=== PATIENT | female | born 1940 | race Caucasian/White ===

== ENCOUNTER 2020-03-07 12:03 | Inpatient (IN) ==
--- NOTE | 2020-03-07 12:47 | Emergency Department Note ---
Impression & Plan Transient cerebral ischemia, Confusion, Double vision ED Provider Note NAME: BOSSMAN MOSCOSO AGE: 79 SEX: F : 1940 ARRIVES VIA: Ambulance INFORMANT: Patient ED PROVIDER(S): Manny Rendon DO CHIEF COMPLAINT: Double vision, trouble speaking HPI: Patient is a 39-year-old female presents the ER for worsening confusion, double vision and trouble talking. She recently moved up from [place]. She notes that she has a sleep disorder and woke up on the floor. She did hit her head. She denies any headache but admits to a change in vision. No chest pain, shortness of breath, nausea, vomiting or diarrhea. No new cough. She notes that she is having trouble getting her words out and she does have some double vision. She thinks is mainly on the left side but is present with both eyes and thinks it does improve when she closes her right eye. No facial pain. No other exacerbating or remitting factors. ROS: See above HPI for pertinent positives & negatives. A total of 10 systems reviewed and were otherwise negative. PAST MEDICAL HISTORY:See Below PAST SURGICAL HISTORY:See Below FAMILY HISTORY:See Below SOCIAL HISTORY:See Below HOME MEDICATIONS:See Below ALLERGIES:See Below VITALS:See Below PHYSICAL EXAMINATION: GENERAL: Sitting up in bed, alert, well appearing, well nourished, no distress, non-toxic EYE EXAM: normal conjunctiva. PERRL and EOM's grossly intact. OROPHARYNX: no exudate, no erythema, lips, buccal mucosa, and tongue normal and mucous membranes are moist NECK: supple, no nuchal rigidity, no adenopathy, non-tender LUNGS: Clear to auscultation. Normal chest wall mechanics HEART: no murmurs, S1 normal and S2 normal ABDOMEN: abdomen soft, non-tender, normo-active bowel sounds, no masses, no rebound or guarding. BACK: Back is symmetrical on inspection and there is no deformity, no midline tenderness, no CVA tenderness. SKIN: no rashes and no bruising UPPER EXTREMITIES: upper extremities are grossly normal. LOWER EXTREMITIES: No pitting edema. NEURO EXAM: Awake alert oriented to person place but not year, cranial nerves II-XII intact, trouble getting her words out, no weakness of arms, no weakness of legs. No drift. Unable to perform meflsm-or-bfdg as she is seeing double. gross sensation intact. MEDICAL DECISION MAKING: A 79-year-old female who presents the ER for double vision, trouble getting her words out and some confusion. IV was established blood work was obtained. Labs showed no significant leukocytosis or anemia. INR was unremarkable. BMP with a slightly elevated creatinine 1.4. LFTs bilirubin and troponin was negative. CTA of the head and neck shows 80% occlusion of the left vert. CT head was negative. Patient is confused but uncertain of her true baseline. Was concern for TIA. Patient was updated bedside. Discussed with hospitalist for further evaluation. Triage Nursing notes reviewed. Prior medical records reviewed Vital Signs: reviewed and remarkable for no significant abnormalities Differential diagnosis: Differential Diagnosis includes but is not limited to ischemic Stroke, hemorrhagic stroke, bells palsy, mass, neoplasm, migraine headache, seizure, subarachnoid hemorrhage, TIA, and transient global amnesia. ER treatment provided: See below Diagnostics interpreted by me: ECG: Sinus rhythm rate of 81 Left axis No PVCs First-degree AV block Normal QTC Cardiac Monitoring: An order was placed for continuous cardiac monitoring. The monitor shows a rate of 85 with sinus rhythm. Laboratory studies: As stated above and show below. Imaging studies: See below Consultation(s): none ED COURSE: Procedures: none Critical Care: None Past Med/Surg History Social History Smoking Status: Former smoker Hx Alcohol Use: No Hx Substance Use: No Preferred Language: Serbian Communication Ability: Effective Customer Associate Required: No Beliefs That Will Affect Care: None Current Living Situation: Alone Other Information That Helps Us Care for You: No Feels Safe at Home: Yes Safety Concerns: Feels Safe At This Time Assistive Devices: Glasses Allergies Allergies Allergy/AdvReac Type Severity Reaction Status Date / Time acetaminophen [From Midrin] AdvReac Severe angina and Unverified 03/07/20 14:35 hypertension dichloralphenazone AdvReac Severe angina and Unverified 03/07/20 14:35 [From Midrin] hypertension isometheptene [From Midrin] AdvReac Severe angina and Unverified 03/07/20 14:35 hypertension verapamil AdvReac Severe angina and Unverified 03/07/20 14:35 hypertension erythromycin base AdvReac Unknown Unknown Unverified 03/07/20 14:35 Home Meds Home Medications Medication Instructions Recorded Confirmed Biotin 900mcg 900 mcg PO QDD 03/07/20 03/07/20 Magnesium 500mg 500 mg PO QDD 03/07/20 03/07/20 Vitamin A 2400mcg 2,400 mcg PO QDD 03/07/20 03/07/20 acetaminophen [Tylenol Extra 1,000 mg PO HS 03/07/20 03/07/20 Strength] albuterol sulfate 2.5 mg INHALATION Q4H PRN 03/07/20 03/07/20 ascorbic acid (vitamin C) [Vitamin 500 mg PO QAM 03/07/20 03/07/20 C] azelastine 2 spray INTRANASAL BIDM 03/07/20 03/07/20 budesonide-formoterol [Symbicort] 2 puff INHALATION HS 03/07/20 03/07/20 bupropion HCl 150 mg PO QAM 03/07/20 03/07/20 calcium carbonate [Calcium 600] 600 mg PO QDD 03/07/20 03/07/20 cetirizine [Zyrtec] 10 mg PO HS 03/07/20 03/07/20 cholecalciferol (vitamin D3) 25 mcg PO QDD 03/07/20 03/07/20 [Vitamin D3] clonazepam 0.5 mg PO HS 03/07/20 03/07/20 docusate sodium [Stool Softener] 300 mg PO HS 03/07/20 03/07/20 fluocinonide 1 applic TOPICAL BID PRN 03/07/20 03/07/20 levomefolate calcium 7.5 mg PO QAM 03/07/20 03/07/20 [L-Methylfolate] levothyroxine 112 mcg PO QAM 03/07/20 03/07/20 niacin 500 mg PO QAM 03/07/20 03/07/20 omeprazole magnesium [Prilosec OTC] 20 mg PO QAM 03/07/20 03/07/20 sertraline 100 mg PO BIDM 03/07/20 03/07/20 tiotropium bromide [Spiriva with 1 cap INHALATION QAM 03/07/20 03/07/20 HandiHaler] tobramycin with nebulizer 300 mg INHALATION Q12H 03/07/20 03/07/20 verapamil 180 mg PO BIDM 03/07/20 03/07/20 Results & Data (ED) Vital Signs Vital Signs - 24 hr 03/07/20 12:10 03/07/20 12:23 03/07/20 12:30 Temperature 36.6 C Temperature Source Oral Pulse Rate - Lying Pulse Rate - Sitting Pulse Rate - Standing Pulse Rate 80 81 80 Pulse Rate [Apical] Pulse Rate from SpO2 Sensor 81 80 Pulse Rhythm Regular Pulse Rhythm [Apical] Pulse Strength Normal Pulse Strength [Apical] Respiratory Rate 23 21 20 Respiratory Effort / Characteristics Non-Labored Spontaneous Respiratory Depth Normal Respiratory Pattern Regular Blood Pressure - Lying Blood Pressure - Sitting Blood Pressure- Standing Blood Pressure 181/97 H 181/97 H 158/86 H Blood Pressure [Right Arm] Blood Pressure Mean 125 121 111 Blood Pressure Mean [Right Arm] Blood Pressure Position Lying Blood Pressure Position [Right Arm] Pulse Oximetry 96 97 96 Oxygen Delivery Method Room Air Sepsis Recent Fever Within 48 Hours No Sepsis New/Unexplained Change in Mental Status No Sepsis Action Taken by Nursing No Action Required 03/07/20 13:00 03/07/20 13:30 03/07/20 14:00 Temperature Temperature Source Pulse Rate - Lying Pulse Rate - Sitting Pulse Rate - Standing Pulse Rate 80 79 82 Pulse Rate [Apical] 82 Pulse Rate from SpO2 Sensor 81 79 82 Pulse Rhythm Pulse Rhythm [Apical] Regular Pulse Strength Pulse Strength [Apical] Normal Respiratory Rate 30 H 17 23 Respiratory Effort / Characteristics Non-Labored Spontaneous Respiratory Depth Normal Respiratory Pattern Blood Pressure - Lying Blood Pressure - Sitting Blood Pressure- Standing Blood Pressure 157/86 H 176/96 H 171/88 H Blood Pressure [Right Arm] 171/88 H Blood Pressure Mean 96 128 129 Blood Pressure Mean [Right Arm] 115 Blood Pressure Position Blood Pressure Position [Right Arm] Semi-fowlers Pulse Oximetry 96 94 97 Oxygen Delivery Method Room Air Sepsis Recent Fever Within 48 Hours Sepsis New/Unexplained Change in Mental Status Sepsis Action Taken by Nursing 03/07/20 14:15 03/07/20 14:22 03/07/20 14:30 Temperature Temperature Source Pulse Rate - Lying 91 H Pulse Rate - Sitting 88 Pulse Rate - Standing 88 Pulse Rate 86 Pulse Rate [Apical] 86 Pulse Rate from SpO2 Sensor 86 Pulse Rhythm Pulse Rhythm [Apical] Regular Pulse Strength Pulse Strength [Apical] Respiratory Rate 18 19 Respiratory Effort / Characteristics Respiratory Depth Normal Respiratory Pattern Blood Pressure - Lying 148/84 H Blood Pressure - Sitting 137/79 Blood Pressure- Standing 107/89 Blood Pressure 156/87 H Blood Pressure [Right Arm] 107/89 Blood Pressure Mean 121 Blood Pressure Mean [Right Arm] 95 Blood Pressure Position Blood Pressure Position [Right Arm] Standing Pulse Oximetry 100 100 Oxygen Delivery Method Sepsis Recent Fever Within 48 Hours Sepsis New/Unexplained Change in Mental Status Sepsis Action Taken by Nursing 03/07/20 15:00 03/07/20 15:30 03/07/20 15:33 Temperature Temperature Source Pulse Rate - Lying Pulse Rate - Sitting Pulse Rate - Standing Pulse Rate 82 90 91 H Pulse Rate [Apical] Pulse Rate from SpO2 Sensor 82 89 91 H Pulse Rhythm Pulse Rhythm [Apical] Pulse Strength Pulse Strength [Apical] Respiratory Rate 19 24 21 Respiratory Effort / Characteristics Respiratory Depth Respiratory Pattern Blood Pressure - Lying Blood Pressure - Sitting Blood Pressure- Standing Blood Pressure 172/96 H 166/151 H 174/113 H Blood Pressure [Right Arm] Blood Pressure Mean 134 156 127 Blood Pressure Mean [Right Arm] Blood Pressure Position Blood Pressure Position [Right Arm] Pulse Oximetry 100 99 100 Oxygen Delivery Method Sepsis Recent Fever Within 48 Hours Sepsis New/Unexplained Change in Mental Status Sepsis Action Taken by Nursing 03/07/20 15:57 03/07/20 16:00 03/07/20 16:18 Temperature Temperature Source Pulse Rate - Lying Pulse Rate - Sitting Pulse Rate - Standing Pulse Rate 88 88 86 Pulse Rate [Apical] Pulse Rate from SpO2 Sensor 88 88 87 Pulse Rhythm Pulse Rhythm [Apical] Pulse Strength Pulse Strength [Apical] Respiratory Rate 20 29 H 21 Respiratory Effort / Characteristics Respiratory Depth Respiratory Pattern Blood Pressure - Lying Blood Pressure - Sitting Blood Pressure- Standing Blood Pressure 146/104 H 162/100 H 162/100 H Blood Pressure [Right Arm] Blood Pressure Mean 130 122 122 Blood Pressure Mean [Right Arm] Blood Pressure Position Blood Pressure Position [Right Arm] Pulse Oximetry 100 100 100 Oxygen Delivery Method Sepsis Recent Fever Within 48 Hours Sepsis New/Unexplained Change in Mental Status Sepsis Action Taken by Nursing 03/07/20 16:30 Temperature Temperature Source Pulse Rate - Lying Pulse Rate - Sitting Pulse Rate - Standing Pulse Rate 87 Pulse Rate [Apical] Pulse Rate from SpO2 Sensor 86 Pulse Rhythm Pulse Rhythm [Apical] Pulse Strength Pulse Strength [Apical] Respiratory Rate 27 H Respiratory Effort / Characteristics Respiratory Depth Respiratory Pattern Blood Pressure - Lying Blood Pressure - Sitting Blood Pressure- Standing Blood Pressure 175/103 H Blood Pressure [Right Arm] Blood Pressure Mean 119 Blood Pressure Mean [Right Arm] Blood Pressure Position Blood Pressure Position [Right Arm] Pulse Oximetry 100 Oxygen Delivery Method Sepsis Recent Fever Within 48 Hours Sepsis New/Unexplained Change in Mental Status Sepsis Action Taken by Nursing Laboratory Data Result diagrams: 03/07/20 12:48 03/07/20 12:48 Lab Results 03/07/20 03/07/20 03/07/20 Range/Units 12:46 12:48 12:48 WBC 11.77 H (4.8-10.8) K/uL RBC 4.81 (4.2-5.4) M/uL Hgb 13.1 (12.0-16.0) g/dL Hct 43.0 (37-47) % MCV 89.4 (80-100) fL MCH 27.2 (25-34) pg MCHC 30.5 L (32-36) g/dL RDW Std Deviation 46.0 (36.4-46.3) fL RDW Coeff of Wilver 14.1 (11.5-14.5) % Plt Count 325 (130-400) K/uL MPV 9.6 (7.4-10.4) fL Immature Gran % (Auto) 0.3 % Neut % (Auto) 82.8 % Lymph % (Auto) 8.0 % [place] % (Auto) 7.5 % Eos % (Auto) 1.3 % Baso % (Auto) 0.1 % Neut # (Auto) 9.76 H (1.4-6.5) K/uL Lymph # (Auto) 0.94 L (1.2-3.4) K/uL [place] # (Auto) 0.88 H (0.11-0.59) K/uL Eos # (Auto) 0.15 (0-0.5) K/uL Baso # (Auto) 0.01 (0-0.2) K/uL Immature Gran # (Auto) 0.03 H (0.00-0.02) K/uL PT 11.1 (9.0-12.0) Seconds INR 1.1 (0.9-1.1) APTT 25.1 (21.0-31.0) Seconds PTT Ratio 0.9 Sodium (136-145) mmol/L Potassium (3.5-5.1) mmol/L Chloride (98-107) mmol/L Carbon Dioxide (21-32) mmol/L Anion Gap (3-11) BUN (7-18) mg/dl Creatinine (0.6-1.2) mg/dl Est Cr Clr Drug Dosing ml/min Est GFR ( Amer) Est GFR (Non-Af Amer) BUN/Creatinine Ratio (10-20) Glucose (70-99) mg/dl POC Glucose 93 (70-99) mg/dl Calcium (8.5-10.1) mg/dl Magnesium (1.8-2.4) mg/dl Total Bilirubin (0.2-1) mg/dl AST (15-37) U/L ALT (12-78) U/L Alkaline Phosphatase (45-117) U/L Troponin I (0-0.045) ng/ml Total Protein (6.4-8.2) gm/dl Albumin (3.4-5.0) gm/dl Globulin (2.5-4.0) gm/dl Albumin/Globulin Ratio (0.9-2) 03/07/20 Range/Units 12:48 WBC (4.8-10.8) K/uL RBC (4.2-5.4) M/uL Hgb (12.0-16.0) g/dL Hct (37-47) % MCV (80-100) fL MCH (25-34) pg MCHC (32-36) g/dL RDW Std Deviation (36.4-46.3) fL RDW Coeff of Wilver (11.5-14.5) % Plt Count (130-400) K/uL MPV (7.4-10.4) fL Immature Gran % (Auto) % Neut % (Auto) % Lymph % (Auto) % [place] % (Auto) % Eos % (Auto) % Baso % (Auto) % Neut # (Auto) (1.4-6.5) K/uL Lymph # (Auto) (1.2-3.4) K/uL [place] # (Auto) (0.11-0.59) K/uL Eos # (Auto) (0-0.5) K/uL Baso # (Auto) (0-0.2) K/uL Immature Gran # (Auto) (0.00-0.02) K/uL PT (9.0-12.0) Seconds INR (0.9-1.1) APTT (21.0-31.0) Seconds PTT Ratio Sodium 137 (136-145) mmol/L Potassium 4.2 (3.5-5.1) mmol/L Chloride 105 (98-107) mmol/L Carbon Dioxide 28 (21-32) mmol/L Anion Gap 4.0 (3-11) BUN 28 H (7-18) mg/dl Creatinine 1.46 H (0.6-1.2) mg/dl Est Cr Clr Drug Dosing 25.7 ml/min Est GFR ( Amer) 39.8 Est GFR (Non-Af Amer) 34.4 BUN/Creatinine Ratio 18.9 (10-20) Glucose 89 (70-99) mg/dl POC Glucose (70-99) mg/dl Calcium 9.4 (8.5-10.1) mg/dl Magnesium 2.4 (1.8-2.4) mg/dl Total Bilirubin 0.4 (0.2-1) mg/dl AST 22 (15-37) U/L ALT 27 (12-78) U/L Alkaline Phosphatase 107 (45-117) U/L Troponin I < 0.015 (0-0.045) ng/ml Total Protein 8.8 H (6.4-8.2) gm/dl Albumin 4.1 (3.4-5.0) gm/dl Globulin 4.7 H (2.5-4.0) gm/dl Albumin/Globulin Ratio 0.9 (0.9-2) Administered Medications Discontinued Medications Ioversol (Optiray 320 125ml) 120 ml IV ONCE ONE Stop: 03/07/20 13:46 Last Admin: 03/07/20 13:46 Dose: 120 ml Documented by: [id number] Discharge Plan Visit Data Chief Complaint: Neuro Symptoms/Deficit ED Provider: Manny Rendon Discharge Problem: Transient cerebral ischemia, Confusion, Double vision Patient Disposition: Admitted As Inpatient Discharge Instructions Interventions: ED Discharge Assessment Last Done: 03/07/20 17:36 Discharge Problem: Transient cerebral ischemia Qualifiers: Transient cerebral ischemia type: unspecified Qualified Code(s): G45.9 - Transient cerebral ischemic attack, unspecified
[2020-03-07 13:05] LABS: Basophils # (auto) 0.01 K/uL (0-0.2); Basophils % (auto) 0.1 %; Eosinophils # (auto) 0.15 K/uL (0-0.5); Eosinophils % (auto) 1.3 %; Hemoglobin 13.1 g/dL (12.0-16.0); Immature Granulocytes # (auto) 0.03 K/uL (0.00-0.02); Immature Granulocytes % (auto) 0.3 %; Lymphocytes # (auto) 0.94 K/uL (1.2-3.4); Mean Corpuscular Hemoglobin 27.2 pg (25-34); Mean Corpuscular Hgb Conc 30.5 g/dL (32-36); Mean Corpuscular Volume 89.4 fL (80-100); Mean Platelet Volume 9.6 fL (7.4-10.4); Monocytes # (auto) 0.88 K/uL (0.11-0.59); Monocytes % (auto) 7.5 %; Neutrophils # (auto) 9.76 K/uL (1.4-6.5); Neutrophils % (auto) 82.8 %; Platelet Count 325 K/uL (130-400); RDW Coefficient of Variation 14.1 % (11.5-14.5); Red Blood Count 4.81 M/uL (4.2-5.4); White Blood Count 11.77 K/uL (4.8-10.8)
[2020-03-07 13:17] LABS: INR 1.1 (0.9-1.1); Partial Thromboplastin Ratio 0.9; Partial Thromboplastin Time 25.1 Seconds (21.0-31.0); Prothrombin Time 11.1 Seconds (9.0-12.0)
[2020-03-07 13:26] LABS: Alanine Aminotransferase 27 U/L (12-78); Albumin Level 4.1 gm/dl (3.4-5.0); BUN Creatinine Ratio 18.9 (10-20); Blood Urea Nitrogen 28 mg/dl (7-18); Calcium 9.4 mg/dl (8.5-10.1); Carbon Dioxide 28 mmol/L (21-32); Chloride 105 mmol/L (98-107); Creatinine Clr Calc Pharmacy 25.7 ml/min; Est GFR (African American) 39.8; Est GFR (Non-African American) 34.4; Glucose 89 mg/dl (70-99); Magnesium 2.4 mg/dl (1.8-2.4); Potassium 4.2 mmol/L (3.5-5.1); Sodium 137 mmol/L (136-145)
[2020-03-07 13:31] LABS: Albumin Globulin Ratio 0.9 (0.9-2); Alkaline Phosphatase 107 U/L (45-117); Aspartate Aminotransferase 22 U/L (15-37); Bilirubin,Total 0.4 mg/dl (0.2-1); Globulin 4.7 gm/dl (2.5-4.0); Total Protein 8.8 gm/dl (6.4-8.2); Troponin I < 0.015 ng/ml (0-0.045)
[2020-03-07] MEDS ORDERED: OPTIRAY 320 125ml IV ONE (13:45)
--- NOTE | 2020-03-07 14:02 | CT Scan Report ---
CT head/brain wo con CLINICAL HISTORY: Expressive achalasia. Suspected acute stroke COMPARISON STUDY: No previous studies for comparison. TECHNIQUE: Axial CT of the brain is performed from the vertex to the skull base. IV contrast was not administered for this examination. A dose lowering technique was utilized adhering to the principles of ALARA. CT DOSE: FINDINGS: No intra or extra-axial mass lesions are visualized. There is no CT evidence of acute cortical infarc tion. There is no evidence of midline shift. There is no acute hemorrhage. No calvarial fractures ar e visualized. There are patchy white matter hypodensities likely on a small vessel basis. There is mild ventricular dilatation likely secondary to volume loss There is no evidence of acute sinusitis IMPRESSION: No acute intracranial findings ACT 112: Negative or not required by law. Electronically signed by: Alessandro Barron M.D. 03/07/2020 2:01 PM
--- NOTE | 2020-03-07 14:10 | CT Scan Report ---
CT angio neck with con CLINICAL HISTORY: Expressive achalasia. Acute stroke COMPARISON STUDY: No previous studies for comparison. TECHNIQUE: CT angiography was performed from the aortic arch to the skull base. MIP imaging was perfo rmed. The patient was scanned in a dynamic helical fashion during intravenous administration of 120 c c of Optiray 320. A dose lowering technique was utilized adhering to the principles of ALARA. CT DOSE: 2720.94 mGy.cm Technique: CT angiogram of the carotid and vertebral arteries was obtained using intravenous contrast and 3-D reconstruction. NASCET criteria was utilized. Findings: The visualized portions the lung apices reveal upper lobe bronchiectasis. There are biapical opacitie s, likely representing pleural-parenchymal scarring. There are areas of mucous plugging. Atheromatous changes are present the level the right carotid bulb. There is a 25% diameter narrowing of the proximal right internal carotid artery. The left carotid revealed no evidence of hemodynamic significant stenosis. There is no evidence of an eurysm. There is no evidence of dissection. There is a 50% diameter left vertebral narrowing at the C5 level secondary to facet joint arthropathy . There is an 80% diameter narrowing of the right vertebral artery origin. There is a 50% diameter na rrowing of the right vertebral at the C2 level. IMPRESSION: 1. No evidence of hemodynamically significant carotid stenosis 2. Hemodynamically significant 80% diameter narrowing in the right vertebral artery origin 3. Nonhemodynamically significant 25% diameter narrowing the proximal right internal carotid artery. 4. 50% diameter narrowing of the left vertebral at the C5 level, and 50% diameter narrowing of the ri ght vertebral the C2 level. 5. Upper lobe bronchiectasis mucous plugging and presumed area of pleural-parenchymal scarring ACT 112: Negative or not required by law. Electronically signed by: Alessandro Barron M.D. 03/07/2020 2:08 PM
--- NOTE | 2020-03-07 14:18 | CT Scan Report ---
CT angio head w con CLINICAL HISTORY: Stroke evaluation EXPRESSIVE APHASIA TECHNIQUE: CT angiography of the head was performed in a dynamic helical fashion during intravenous a dministration of 120 cc of Optiray 320. MIP imaging was performed. A dose lowering technique was util ized adhering to the principles of ALARA. CT DOSE: COMPARISON STUDY: No previous studies for comparison. FINDINGS: There are no lesion suspicious for aneurysm. There are no major intracranial branch occlusi ons. The dural venous sinuses appear patent. There is a 50% diameter stenosis of the right vertebral artery at the C2 level. There is 75% diameter narrowing of the A2 segment of the right anterior cereb ral artery IMPRESSION: 1. 75% diameter narrowing of the anterior cerebral artery (A2 segment) 2. 50% diameter stenosis of the right vertebral artery at the C2 level. ACT 112: Negative or not required by law. Electronically signed by: Alessandro Barron M.D. 03/07/2020 2:17 PM
--- NOTE | 2020-03-07 15:57 | History & Physical Report ---
Date of Service March 07, 2020 Assessment & Plan (1) Confusion: Patient describes episode of weakness, specifically of her legs, unable to get up after a fall as her main complaint. Also with some word finding difficulty, possibly some slurred speech son mentioned. Symptoms to not clearly localize to explain a CVA or TIA -Observation to medical with telemetry -Neuro checks and NIHSS per protocol -Dysphagia screening PRN -Check MRI brain -Check lipids and A1C -PT/OT evaluation appreciated -Neuro Consultation appreciated -ASA 81mg po q daily Present on Admission?: Yes (2) COPD (chronic obstructive pulmonary disease): No respiratory distress at present. Adequate oxygenation on 2L NC. Patient with reported bronchiectasis Denies worsening cough or sputum at present -Continue Albuterol PRN -Continue Fluticasone/Vilanterol -Continue Umeclidinium -Continue inhaled Tobramycin Present on Admission?: Yes (3) Dementia: Patient doing well. Mildly confused at times but overall can answer questions and follow commands -Delirium prevention strategies Present on Admission?: Yes (4) Depression: Chronic -Continue Bupropion 150mg po qAM -Continue Sertraline 100mg po daily -Clonazepam 0.5mg po qHS Present on Admission?: Yes (5) Hypothyroid: Chronic -TSH ordered -Continue Synthroid Present on Admission?: Yes (6) Migraine: Currently without headache -Continue Verapamil for prophylaxis F/E/N - NSS at 80mL/hr, electrolytes WNL, regular diet as tolerated with aspiration precautions Ppx - low risk for DVT Code - Full Dispo -Observation to medical with telemetry Present on Admission?: Yes History of Present Illness Chief Complaint: AMS Primary Care Provider: KANIKA Rubio Eve Chi is a 79yo C female with history of Dementia, COPD, GERD. Patient recently relocated from [place], [place] and now resides at [facility]. Son is at bedside and assists with details of the history. Patient reports that she fell out of bed today and required nursing assistance to get up. She reports her legs being weak. Also a brief episode of slurred speech and increased confusion. She states that she "can't think and talk at the same time". Per her son, she is quite well-spoken at baseline but has been having some word finding difficulties. She also reports feeling lightheaded with ambulation. Occasional cough. Patient denies fevers/chills/sweats. Denies CP/SOB/abdominal pain/nausea/vomiting/diarrhea/constipation. No concerns for COVID-19 exposure. Patient reports similar symptoms in the past where she was too weak to get up due to upper extremity weakness. Allergies Allergy/AdvReac Type Severity Reaction Status Date / Time acetaminophen [From Midrin] AdvReac Severe angina and Unverified 03/07/20 14:35 hypertension dichloralphenazone AdvReac Severe angina and Unverified 03/07/20 14:35 [From Midrin] hypertension isometheptene [From Midrin] AdvReac Severe angina and Unverified 03/07/20 14:35 hypertension verapamil AdvReac Severe angina and Unverified 03/07/20 14:35 hypertension erythromycin base AdvReac Unknown Unknown Unverified 03/07/20 14:35 Home Medications Home Medications Medication Instructions Recorded Confirmed Type Biotin 900mcg 900 mcg PO QDD 03/07/20 03/07/20 History Magnesium 500mg 500 mg PO QDD 03/07/20 03/07/20 History Vitamin A 2400mcg 2,400 mcg PO QDD 03/07/20 03/07/20 History acetaminophen [Tylenol Extra 1,000 mg PO HS 03/07/20 03/07/20 History Strength] albuterol sulfate 2.5 mg INHALATION Q4H PRN 03/07/20 03/07/20 History ascorbic acid (vitamin C) [Vitamin 500 mg PO QAM 03/07/20 03/07/20 History C] azelastine 2 spray INTRANASAL BIDM 03/07/20 03/07/20 History budesonide-formoterol [Symbicort] 2 puff INHALATION HS 03/07/20 03/07/20 History bupropion HCl 150 mg PO QAM 03/07/20 03/07/20 History calcium carbonate [Calcium 600] 600 mg PO QDD 03/07/20 03/07/20 History cetirizine [Zyrtec] 10 mg PO HS 03/07/20 03/07/20 History cholecalciferol (vitamin D3) 25 mcg PO QDD 03/07/20 03/07/20 History [Vitamin D3] clonazepam 0.5 mg PO HS 03/07/20 03/07/20 History docusate sodium [Stool Softener] 300 mg PO HS 03/07/20 03/07/20 History fluocinonide 1 applic TOPICAL BID PRN 03/07/20 03/07/20 History levomefolate calcium 7.5 mg PO QAM 03/07/20 03/07/20 History [L-Methylfolate] levothyroxine 112 mcg PO QAM 03/07/20 03/07/20 History niacin 500 mg PO QAM 03/07/20 03/07/20 History omeprazole magnesium [Prilosec OTC] 20 mg PO QAM 03/07/20 03/07/20 History sertraline 100 mg PO BIDM 03/07/20 03/07/20 History tiotropium bromide [Spiriva with 1 cap INHALATION QAM 03/07/20 03/07/20 History HandiHaler] tobramycin with nebulizer 300 mg INHALATION Q12H 03/07/20 03/07/20 History verapamil 180 mg PO BIDM 03/07/20 03/07/20 History Past Med/Surg History Medical History (Updated 03/07/20 @ 21:18 by Eli Gibson DO) Bronchiectasis COPD (chronic obstructive pulmonary disease) Dementia Depression Hypothyroid Migraine Surgical History (Updated 03/07/20 @ 21:04 by Eli Gibson DO) History of tonsillectomy History of tubal ligation Family History (Updated 03/07/20 @ 21:05 by Eli Gibson DO) Other Family history non-contributory Social History Smoking Status: Former smoker Hx Alcohol Use: No Hx Substance Use: No Preferred Language: [place] Communication Ability: Effective Olericulturist Required: No Beliefs That Will Affect Care: None Current Living Situation: Alone Other Information That Helps Us Care for You: No Feels Safe at Home: Yes Safety Concerns: Feels Safe At This Time Assistive Devices: Glasses Review of Systems Review of Systems: All systems reviewed & are unremarkable except as noted in HPI & below Physical Exam Physical Exam: General: patient resting comfortably, NAD, non-toxic in appearance, AA&O x 4 Skin: warm, dry, intact, no rashes or lesions HEENT: NC/AT, PERRL, EOMI, anicteric sclera, conjunctiva without injection, external ear normal to inspection and nontender, nares patent, moist mucus membranes, dentition intact, no oropharyngeal lesions, neck supple, trachea midline, no LAD, no thyromegaly, no JVD Heart: +S1/S2, regular, no m/r/g Lungs: equal air entry bilaterally, no rales/rhonchi/wheezes Abd: +BS, soft, NT/ND, no masses/organomegaly/ascites Ext: warm, 2+ pulses in UE/LE bilaterally, no clubbing/cyanosis or edema Neuro: nonfocal, patient AA&O x 4, some word finding difficulty, no facial droop, moving all extremities on command with equal strength 5/5 Results & Data Results & Data ([facility]) Vital Signs (Past 12 Hours) Vital Signs Temp Pulse Pulse Resp BP BP Pulse Ox 03/07/20 14:15 86 18 107/89 100 03/07/20 14:00 82 20 171/88 H 96 03/07/20 12:10 36.6 C 80 23 181/97 H 96 Laboratory Results Lab Results 03/07/20 03/07/20 03/07/20 Range/Units 12:46 12:48 12:48 WBC 11.77 H (4.8-10.8) K/uL RBC 4.81 (4.2-5.4) M/uL Hgb 13.1 (12.0-16.0) g/dL Hct 43.0 (37-47) % MCV 89.4 (80-100) fL MCH 27.2 (25-34) pg MCHC 30.5 L (32-36) g/dL RDW Std Deviation 46.0 (36.4-46.3) fL RDW Coeff of Wilver 14.1 (11.5-14.5) % Plt Count 325 (130-400) K/uL MPV 9.6 (7.4-10.4) fL Immature Gran % (Auto) 0.3 % Neut % (Auto) 82.8 % Lymph % (Auto) 8.0 % [place] % (Auto) 7.5 % Eos % (Auto) 1.3 % Baso % (Auto) 0.1 % Neut # (Auto) 9.76 H (1.4-6.5) K/uL Lymph # (Auto) 0.94 L (1.2-3.4) K/uL [place] # (Auto) 0.88 H (0.11-0.59) K/uL Eos # (Auto) 0.15 (0-0.5) K/uL Baso # (Auto) 0.01 (0-0.2) K/uL Immature Gran # (Auto) 0.03 H (0.00-0.02) K/uL ESR (0-21) mm/hr PT 11.1 (9.0-12.0) Seconds INR 1.1 (0.9-1.1) APTT 25.1 (21.0-31.0) Seconds PTT Ratio 0.9 Sodium (136-145) mmol/L Potassium (3.5-5.1) mmol/L Chloride (98-107) mmol/L Carbon Dioxide (21-32) mmol/L Anion Gap (3-11) BUN (7-18) mg/dl Creatinine (0.6-1.2) mg/dl Est Cr Clr Drug Dosing ml/min Est GFR ( Amer) Est GFR (Non-Af Amer) BUN/Creatinine Ratio (-20) Glucose (70-99) mg/dl POC Glucose 93 (70-99) mg/dl Calcium (8.5-10.1) mg/dl Phosphorus (2.5-4.9) mg/dl Magnesium (1.8-2.4) mg/dl Total Bilirubin (0.2-1) mg/dl AST (15-37) U/L ALT (12-78) U/L Alkaline Phosphatase (45-117) U/L Troponin I (0-0.045) ng/ml C-Reactive Protein (0-0.29) mg/dl Total Protein (6.4-8.2) gm/dl Albumin (3.4-5.0) gm/dl Globulin (2.5-4.0) gm/dl Albumin/Globulin Ratio (0.9-2) Procalcitonin (0-0.5) ng/ml TSH (0.300-4.500) uIu/ml 03/07/20 03/07/20 03/07/20 Range/Units 12:48 12:48 12:48 WBC (4.8-10.8) K/uL RBC (4.2-5.4) M/uL Hgb (12.0-16.0) g/dL Hct (37-47) % MCV (80-100) fL MCH (25-34) pg MCHC (32-36) g/dL RDW Std Deviation (36.4-46.3) fL RDW Coeff of Wilver (11.5-14.5) % Plt Count (130-400) K/uL MPV (7.4-10.4) fL Immature Gran % (Auto) % Neut % (Auto) % Lymph % (Auto) % [place] % (Auto) % Eos % (Auto) % Baso % (Auto) % Neut # (Auto) (1.4-6.5) K/uL Lymph # (Auto) (1.2-3.4) K/uL [place] # (Auto) (0.11-0.59) K/uL Eos # (Auto) (0-0.5) K/uL Baso # (Auto) (0-0.2) K/uL Immature Gran # (Auto) (0.00-0.02) K/uL ESR 56 H (0-21) mm/hr PT (9.0-12.0) Seconds INR (0.9-1.1) APTT (21.0-31.0) Seconds PTT Ratio Sodium 137 (136-145) mmol/L Potassium 4.2 (3.5-5.1) mmol/L Chloride 105 (98-107) mmol/L Carbon Dioxide 28 (21-32) mmol/L Anion Gap 4.0 (3-11) BUN 28 H (7-18) mg/dl Creatinine 1.46 H (0.6-1.2) mg/dl Est Cr Clr Drug Dosing 25.7 ml/min Est GFR ( Amer) 39.8 Est GFR (Non-Af Amer) 34.4 BUN/Creatinine Ratio 18.9 (10-20) Glucose 89 (70-99) mg/dl POC Glucose (70-99) mg/dl Calcium 9.4 (8.5-10.1) mg/dl Phosphorus 3.8 (2.5-4.9) mg/dl Magnesium 2.4 (1.8-2.4) mg/dl Total Bilirubin 0.4 (0.2-1) mg/dl AST 22 (15-37) U/L ALT 27 (12-78) U/L Alkaline Phosphatase 107 (45-117) U/L Troponin I < 0.015 (0-0.045) ng/ml C-Reactive Protein 0.90 H (0-0.29) mg/dl Total Protein 8.8 H (6.4-8.2) gm/dl Albumin 4.1 (3.4-5.0) gm/dl Globulin 4.7 H (2.5-4.0) gm/dl Albumin/Globulin Ratio 0.9 (0.9-2) Procalcitonin (0-0.5) ng/ml TSH 5.170 H (0.300-4.500) uIu/ml 03/07/20 Range/Units 18:00 WBC (4.8-10.8) K/uL RBC (4.2-5.4) M/uL Hgb (12.0-16.0) g/dL Hct (37-47) % MCV (80-100) fL MCH (25-34) pg MCHC (32-36) g/dL RDW Std Deviation (36.4-46.3) fL RDW Coeff of Wilver (11.5-14.5) % Plt Count (130-400) K/uL MPV (7.4-10.4) fL Immature Gran % (Auto) % Neut % (Auto) % Lymph % (Auto) % [place] % (Auto) % Eos % (Auto) % Baso % (Auto) % Neut # (Auto) (1.4-6.5) K/uL Lymph # (Auto) (1.2-3.4) K/uL [place] # (Auto) (0.11-0.59) K/uL Eos # (Auto) (0-0.5) K/uL Baso # (Auto) (0-0.2) K/uL Immature Gran # (Auto) (0.00-0.02) K/uL ESR (0-21) mm/hr PT (9.0-12.0) Seconds INR (0.9-1.1) APTT (21.0-31.0) Seconds PTT Ratio Sodium (136-145) mmol/L Potassium (3.5-5.1) mmol/L Chloride (98-107) mmol/L Carbon Dioxide (21-32) mmol/L Anion Gap (3-11) BUN (7-18) mg/dl Creatinine (0.6-1.2) mg/dl Est Cr Clr Drug Dosing ml/min Est GFR ( Amer) Est GFR (Non-Af Amer) BUN/Creatinine Ratio (10-20) Glucose (70-99) mg/dl POC Glucose (70-99) mg/dl Calcium (8.5-10.1) mg/dl Phosphorus (2.5-4.9) mg/dl Magnesium (1.8-2.4) mg/dl Total Bilirubin (0.2-1) mg/dl AST (15-37) U/L ALT (12-78) U/L Alkaline Phosphatase (45-117) U/L Troponin I (0-0.045) ng/ml C-Reactive Protein (0-0.29) mg/dl Total Protein (6.4-8.2) gm/dl Albumin (3.4-5.0) gm/dl Globulin (2.5-4.0) gm/dl Albumin/Globulin Ratio (0.9-2) Procalcitonin < 0.05 (0-0.5) ng/ml TSH (0.300-4.500) uIu/ml Diagnostic Findings CT head/brain wo con CLINICAL HISTORY: Expressive achalasia. Suspected acute stroke COMPARISON STUDY: No previous studies for comparison. TECHNIQUE: Axial CT of the brain is performed from the vertex to the skull base. IV contrast was not administered for this examination. A dose lowering technique was utilized adhering to the principles of ALARA. CT DOSE: FINDINGS: No intra or extra-axial mass lesions are visualized. There is no CT evidence of acute cortical infarction. There is no evidence of midline shift. There is no acute hemorrhage. No calvarial fractures are visualized. There are patchy white matter hypodensities likely on a small vessel basis. There is mild ventricular dilatation likely secondary to volume loss There is no evidence of acute sinusitis IMPRESSION: No acute intracranial findings ACT 112: Negative or not required by law. Electronically signed by: Alessandro Barron M.D. 03/07/2020 2:01 PM Dictated: 03/07/20 1400 Transcribed: 03/07/[address] angio head w con CLINICAL HISTORY: Stroke evaluation EXPRESSIVE APHASIA TECHNIQUE: CT angiography of the head was performed in a dynamic helical fashion during intravenous administration of 120 cc of Optiray 320. MIP imaging was performed. A dose lowering technique was utilized adhering to the principles of ALARA. CT DOSE: COMPARISON STUDY: No previous studies for comparison. FINDINGS: There are no lesion suspicious for aneurysm. There are no major intracranial branch occlusions. The dural venous sinuses appear patent. There is a 50% diameter stenosis of the right vertebral artery at the C2 level. There is 75% diameter narrowing of the A2 segment of the right anterior cerebral artery IMPRESSION: 1. 75% diameter narrowing of the anterior cerebral artery (A2 segment) 2. 50% diameter stenosis of the right vertebral artery at the C2 level. ACT 112: Negative or not required by law. Electronically signed by: Alessandro Barron M.D. 03/07/2020 2:17 PM Dictated: 03/07/201409 Transcribed: 03/07/201409 CT angio neck with con CLINICAL HISTORY: Expressive achalasia. Acute stroke COMPARISON STUDY: No previous studies for comparison. TECHNIQUE: CT angiography was performed from the aortic arch to the skull base. MIP imaging was performed. The patient was scanned in a dynamic helical fashion during intravenous administration of 120 cc of Optiray 320. A dose lowering technique was utilized adhering to the principles of ALARA. CT DOSE: 2720.94 mGy.cm Technique: CT angiogram of the carotid and vertebral arteries was obtained using intravenous contrast and 3-D reconstruction. NASCET criteria was utilized. Findings: The visualized portions the lung apices reveal upper lobe bronchiectasis. There are biapical opacities, likely representing pleural-parenchymal scarring. There are areas of mucous plugging. Atheromatous changes are present the level the right carotid bulb. There is a 25% diameter narrowing of the proximal right internal carotid artery. The left carotid revealed no evidence of hemodynamic significant stenosis. There is no evidence of aneurysm. There is no evidence of dissection. There is a 50% diameter left vertebral narrowing at the C5 level secondary to facet joint arthropathy. There is an 80% diameter narrowing of the right vertebral artery origin. There is a 50% diameter narrowing of the right vertebral at the C2 level. IMPRESSION: 1. No evidence of hemodynamically significant carotid stenosis 2. Hemodynamically significant 80% diameter narrowing in the right vertebral artery origin 3. Nonhemodynamically significant 25% diameter narrowing the proximal right internal carotid artery. 4. 50% diameter narrowing of the left vertebral at the C5 level, and 50% diameter narrowing of the right vertebral the C2 level. 5. Upper lobe bronchiectasis mucous plugging and presumed area of pleural- parenchymal scarring ACT 112: Negative or not required by law. Electronically signed by: Alessandro Barron M.D. 03/07/2020 2:08 PM Dictated: 03/07/201400 Transcribed: 03/07/201400 ECG Additional Comments: EKG with SR at 81, ZX=342, IB=594, LTz=620, no acute ischemic changes, no prior EKGs available Code Status & VTE Plan Code Status Full Code. Of note, patient had a signed POLST form with her paperwork from [facility]. However, when asked about Code status she states that she would like to be full code PG Care Time/CCT Total # of Minutes Spent Total Time Spent with Patient: Total time spent is greater than 50% in coordination of care (as documented) at patient's floor/unit and/or counseling patient: Coding Level of Care Code 02071 OBS Care - Level 3 Diagnoses Confusion R41.0 COPD (chronic obstructive pulmonary disease) J44.9 COPD type: unspecified COPD Dementia G30.9; F02.80 Dementia type: Alzheimer's disease Alzheimer's disease onset: unspecified onset Dementia behavioral disturbance: without behavioral disturbance Depression F32.9 Depression Type: major depressive disorder Major depression recurrence: unspecified whether recurrent Active/Remission status: remission status unspecified Hypothyroid E03.9 Hypothyroidism type: unspecified Migraine G43.909 Migraine type: unspecified Status migrainosus presence: without status migrainosus Intractability: not intractable (1) COPD (chronic obstructive pulmonary disease) COPD type: unspecified COPD Qualified Code(s): J44.9 - Chronic obstructive pulmonary disease, unspecified (2) Dementia Dementia type: Alzheimer's disease Alzheimer's disease onset: unspecified onset Dementia behavioral disturbance: without behavioral disturbance Qualified Code(s): G30.9 - Alzheimer's disease, unspecified; F02.80 - Dementia in other diseases classified elsewhere without behavioral disturbance (3) Depression Depression Type: major depressive disorder Major depression recurrence: unspecified whether recurrent Active/Remission status: remission status unspecified Qualified Code(s): F32.9 - Major depressive disorder, single episode, unspecified (4) Hypothyroid Hypothyroidism type: unspecified Qualified Code(s): E03.9 - Hypothyroidism, unspecified (5) Migraine Migraine type: unspecified Status migrainosus presence: without status migrainosus Intractability: not intractable Qualified Code(s): G43.909 - Migraine, unspecified, not intractable, without status migrainosus
[2020-03-07] MEDS ORDERED: FLUOCINONIDE 0.05% CR 15 GM TUBE EXT PRN (17:22)
[2020-03-07] MEDS ORDERED: ALBUTEROL 0.083% NEBU SOLN 3 ML VIAL INH PRN (17:22)
[2020-03-07] MEDS ORDERED: SODIUM CHLORIDE 0.9% 1000ML 1,000 ML IV SCH (17:22)
[2020-03-07] MEDS ORDERED: ASPIRIN 81 MG CHEW PO ONE (17:22)
[2020-03-07] MEDS ORDERED: TOBRAMYCIN 300 MG INH SCH (17:22)
[2020-03-07] MEDS ORDERED: [UNRECOGNIZED DRUG - OTHER] INH SCH (17:22)
[2020-03-07 18:03] LABS: C Reactive Protein 0.9 mg/dl (0-0.29); Phosphorus 3.8 mg/dl (2.5-4.9); Thyroid Stimulating Hormone 5.17 uIu/ml (0.300-4.500)
[2020-03-07] MEDS: VERAPAMIL HCL 180 MG TABCR PO SCH (20:07)
[2020-03-07] MEDS: clonazePAM 0.5 MG TAB PO SCH (20:07)
[2020-03-07] MEDS: ACETAMINOPHEN 500 MG TAB PO SCH (20:08)
[2020-03-07] MEDS: FLUTICASONE/VILANTEROL 100/25MCG 14 PUFFS/INHALER INH SCH (20:09)
[2020-03-07] MEDS: TOBRAMYCIN SULFATE 300 MG in SYRINGE 0 ML INH SCH (20:17)
[2020-03-07] MEDS ORDERED: DOCUSATE SODIUM 100 MG CAP PO SCH (21:00)
[2020-03-08] MEDS: AZELASTINE ~ ORDER AWAITING ACTION SCH ×4 (01:43→23:49)
[2020-03-08] MEDS: LEVOTHYROXINE SODIUM 112 MCG TABLET PO SCH (06:14)
[2020-03-08 06:32] LABS: Appearance Urine Clear (Clear); Bilirubin Urine Negative (Negative); Blood Urine Negative (Negative); Color Urine Yellow; Glucose Urine UA Negative (Negative); Ketones Urine Negative (Negative); Leukocyte Esterase Urine Negative (Negative); Nitrite Urine Negative (Negative); Protein Urine Negative (Negative); Specific Gravity Urine 1.032 (1.000-1.030); Urobilinogen Urine Negative (Negative)
[2020-03-08] MEDS ORDERED: GADOBUTROL 65ML VIAL IV ONE (07:50)
--- NOTE | 2020-03-08 08:00 | Hospitalist Progress Note ---
Date of Service March 08, 2020 Assessment & Plan (1) Abdominal pain: Newfound abdominal pain with self-described constipation. This certainly could be crampy pain from constipation however the rebound nature of this pain warrants a further evaluation by CT scan. Patient only has a wide minor white count of 11 no changes in serum chemistry to be concern for acidemia at this time parenteral pain medications and antiemetics will be given and a CT scan to be ordered with oral contrast (2) Confusion: Patient and son recollect some word finding difficulty and perhaps some slurred speech however patient feels she is back to her baseline prior to have daily abdominal pain. CTA neck 03/07/20 IMPRESSION: 1. No evidence of hemodynamically significant carotid stenosis 2. Hemodynamically significant 80% diameter narrowing in the right vertebral artery origin 3. Non hemodynamically significant 25% diameter narrowing the proximal right internal carotid artery. 4. 50% diameter narrowing of the left vertebral at the C5 level, and 50% diameter narrowing of the right vertebral the C2 level. 5. Upper lobe bronchiectasis mucous plugging and presumed area of pleural- parenchymal scarring MRI brain 03/08/20 IMPRESSION: 1. No acute intracranial findings 2. No evidence of acute or subacute infarction 3. No evidence of intracranial mass 4. Foci of increased T2 signal within the white matter likely on a small vessel basis. HEAD CTA 03/07/20 IMPRESSION: 1. 75% diameter narrowing of the anterior cerebral artery (A2 segment) 2. 50% diameter stenosis of the right vertebral artery at the C2 level. lipids tc 225, ldl 138 and A1C 5.7 -PT/OT evaluation appreciated, 6 clicks score of 20 -Neuro Consultation appreciated -ASA 81mg po q daily (3) COPD (chronic obstructive pulmonary disease): continues without respiratory distress . Adequate oxygenation on 2L NC. Patient with reported bronchiectasis - Continue inhaled Tobramycin Denies worsening cough or sputum at present -Continue Fluticasone/Vilanterol, Umeclidinium, Albuterol PRN (4) Dementia: Patient doing well. Mildly confused at times but overall can answer questions and follow commands, oriented x 2 . Son updated -Delirium prevention strategies (5) Depression: Chronic Bupropion 150mg po qAM, Sertraline 100mg po daily -Clonazepam 0.5mg po qHS (6) Hypothyroid: Chronic tsh mildly elevated will not make changes but will recommned recheck -Continue Synthroid (7) Migraine: Currently without headache -Continue Verapamil for prophylaxis Ppx - low risk for DVT Code - Full Admission and Anticipated Discharge Date Admission Date: March 07, 2020 Subjective Patient was seen on 2 different occasions today initially in the morning she had very little complaints was forgetful seemingly felt she recovered to her basic self after her initial event at the [facility]. However in the afternoon after returning to the bathroom the patient developed intense abdominal pain in the bilateral lower quadrants this is associate with nausea without vomiting but patient said she felt close to vomiting. Her examination showed to be consistent with some distention tympany and may be rebound tenderness but no voluntary guarding subsequently informed her son Mak that she will not be discharged we make it made into her admission status and a CT scan of her abdomen will be evaluated to evaluate for diverticulosis or other intra- abdominal issue Review of Systems Review of Systems: Mild distress and fatigue no headache, blurry or double vision no speech or swallowing issues no chest pain, pressure or palpitations no shortness of breath, cough or wheezes b/l lower quadrant abdominal pain and nausea, no dysuria, hematuria or frequency no focal joint pain or swelling no back pain, CVA tenderness or radicular pain no bruising, bleeding or rashes no focal signs of weakness or numbness or altered sensation no complaints of anxiety or depression, pt does have dementia. Physical Exam Physical Exam: The patient appeared thin but consistent with her stated age Vital signs as documented. Head exam is normocephalic atraumatic no scleral icterus Neck is without JVD, thyromegaly, or carotid bruits. Lungs are clear to auscultation, no focal loss of breath sounds Cardiac exam, Rhythm is regular.. No murmurs, rubs or gallops. Abdominal exam reveals normal to hyper bowel sounds, soft distended tympanitic with rebound tenderness bilateral lower quadrants no rigid abdomen or guarding Extremities are nonedematous and both pedal pulses are present Neurologic exam is alert and oriented x2, no focal loss of strength or sensation Skin is without bruises or rashes Psychologically is with concerned for dementia Results & Data Results & Data ([facility]) Vital Signs (Past 12 Hours) Vital Signs Temp Pulse Pulse Resp BP Pulse Ox 03/08/20 07:22 83 03/08/20 07:19 87 03/08/20 02:44 97.7 F 84 18 130/81 97 10/04/20 22:39 97.7 F 85 18 138/73 98 03/07/20 20:21 76 16 98 03/07/20 20:06 97.7 F 91 H 18 168/83 H 97 PG Care Time/CCT Total # of Minutes Spent Total Time Spent with Patient: Total time spent is greater than 50% in coordination of care (as documented) at patient's floor/unit and/or counseling patient: Coding Level of Care Code 41346 Subseq Hosp Care Lvl 3 Diagnoses Abdominal pain R10.9 Confusion R41.0 COPD (chronic obstructive pulmonary disease) J44.9 COPD type: unspecified COPD Dementia G30.9; F02.80 Alzheimer's disease onset: unspecified onset Dementia behavioral disturbance: without behavioral disturbance Dementia type: Alzheimer's disease Depression F32.9 Active/Remission status: remission status unspecified Depression Type: major depressive disorder Major depression recurrence: unspecified whether recurrent Hypothyroid E03.9 Hypothyroidism type: unspecified Migraine G43.909 Intractability: not intractable Migraine type: unspecified Status migrainosus presence: without status migrainosus (1) Dementia Alzheimer's disease onset: unspecified onset Dementia behavioral disturbance: without behavioral disturbance Dementia type: Alzheimer's disease Qualified Code(s): G30.9 - Alzheimer's disease, unspecified; F02.80 - Dementia in other diseases classified elsewhere without behavioral disturbance (2) Depression Active/Remission status: remission status unspecified Depression Type: major depressive disorder Major depression recurrence: unspecified whether recurrent Qualified Code(s): F32.9 - Major depressive disorder, single episode, unspecified (3) Migraine Intractability: not intractable Migraine type: unspecified Status migrainosus presence: without status migrainosus Qualified Code(s): G43.909 - Migraine, unspecified, not intractable, without status migrainosus (4) Hypothyroid Hypothyroidism type: unspecified Qualified Code(s): E03.9 - Hypothyroidism, unspecified (5) COPD (chronic obstructive pulmonary disease) COPD type: unspecified COPD Qualified Code(s): J44.9 - Chronic obstructive pulmonary disease, unspecified
--- NOTE | 2020-03-08 08:15 | Magnetic Resonance Report ---
MRI OF THE BRAIN WITHOUT AND WITH IV CONTRAST CLINICAL HISTORY: Weakness. Possible stroke. COMPARISON STUDY: Noncontrast head CT dated 03/07/2020 TECHNIQUE: MRI of the brain was performed from the vertex to the skull base utilizing various T1 and T2 weighted sequences. Following the IV administration of 4.5 mL of Gadavist contrast, additional enh anced images were obtained. FINDINGS: Sagittal T1, axial diffusion, proton density and T2 weighted axial, coronal FLAIR, and pre and post a xial T1-weighted images were acquired. These were supplemented with post gadolinium coronal T1 weight ed images. No intra or extra-axial mass lesions are visualized. Axial diffusion-weighted images reveal no evidence of acute or subacute infarction. There is mild ventricular prominence likely secondary to volume loss Proton density T2-weighted and FLAIR images reveal scattered foci of increased T2 signal within the w gibson matter, likely on a small vessel basis. There are no abnormal flow voids. There is no evidence of pathologic enhancement. IMPRESSION: 1. No acute intracranial findings 2. No evidence of acute or subacute infarction 3. No evidence of intracranial mass 4. Foci of increased T2 signal within the white matter likely on a small vessel basis. ACT 112: Negative or not required by law. Electronically signed by: Alessandro Barron M.D. 03/08/2020 8:14 AM
[2020-03-08] MEDS: VERAPAMIL HCL 180 MG TABCR PO SCH ×2 (08:17→17:23)
[2020-03-08] MEDS: buPROPion XL 150 MG TABCR PO SCH (08:18)
[2020-03-08] MEDS: ASPIRIN 81 MG ECTAB PO SCH (08:18)
[2020-03-08] MEDS: PANTOprazole 40 MG TAB PO SCH (08:18)
[2020-03-08] MEDS: UMECLIDINIUM BROMIDE 62.5MCG/BLISTER 7 PUFFS/INHALER INH SCH (08:19)
[2020-03-08] MEDS: SERTRALINE HCL 100 MG TABLET PO SCH (08:19)
[2020-03-08 08:22] LABS: Basophils # (auto) 0.03 K/uL (0-0.2); Basophils % (auto) 0.4 %; Eosinophils # (auto) 0.17 K/uL (0-0.5); Eosinophils % (auto) 2.4 %; Hematocrit (blood only) 38.4 % (37-47); Hemoglobin 12.2 g/dL (12.0-16.0); Immature Granulocytes # (auto) 0.04 K/uL (0.00-0.02); Immature Granulocytes % (auto) 0.6 %; Lymphocytes # (auto) 1.17 K/uL (1.2-3.4); Lymphocytes % (auto) 16.2 %; Mean Corpuscular Hemoglobin 28.6 pg (25-34); Mean Corpuscular Hgb Conc 31.8 g/dL (32-36); Mean Corpuscular Volume 89.9 fL (80-100); Mean Platelet Volume 9.5 fL (7.4-10.4); Monocytes # (auto) 0.99 K/uL (0.11-0.59); Monocytes % (auto) 13.7 %; Neutrophils # (auto) 4.81 K/uL (1.4-6.5); Neutrophils % (auto) 66.7 %; Platelet Count 304 K/uL (130-400); Red Blood Count 4.27 M/uL (4.2-5.4); White Blood Count 7.21 K/uL (4.8-10.8)
[2020-03-08 08:39] LABS: BUN Creatinine Ratio 14.9 (10-20); Calcium 9.3 mg/dl (8.5-10.1); Est GFR (African American) 37.3; Est GFR (Non-African American) 32.2; Potassium 3.9 mmol/L (3.5-5.1)
[2020-03-08 09:53] LABS: Estimated Average Glucose 117 mg/dl; Hemoglobin A1C 5.7 % (4.5-5.6)
[2020-03-08] MEDS: TOBRAMYCIN SULFATE 300 MG in SYRINGE 0 ML INH SCH ×2 (11:08→20:47)
--- NOTE | 2020-03-08 14:10 | Neurology Consultation ---
Date of Consultation March 08, 2020 Assessment & Plan (1) Dementia: Eve Chi is a 79 yo woman w/ PMH of migraine, depression, dementia, hypothyroidism, COPD and bronchiectasis who p/t [facility] on 03/07/20 with acute onset of diplopia and difficulty speaking. # Transient generalized weakness a/w confusion: not clear that this was actually a TIA. Would be more c/f an underlying infection that is triggering generalized weakness. -Agree with looking for underlying abdominal pathology if she is now reporting abdominal pain -Would consider weaning her off Klonopin as she has dementia and is over 65 years old (beers criteria) -PT/OT eval -TSH is mildly elevated but was within normal only a week and a half ago. Would continue to monitor -Could consider obtaining a VBG to ensure that she is not hypercarbic if she were to have another confusional episode. -Low threshold to obtain a routine EEG if she has a recurrent event -Given intracranial atherosclerosis, will consider starting aspirin 81 mg daily and low-dose statin for maximal medical therapy Thank you for this interesting consult. Plan of care discussed with primary team. Please call or text with questions. (2) Confusion: (3) Double vision: (4) Transient cerebral ischemia: History of Present Illness Attending Physician: Liam Cameron MD History of Present Illness Eve Chi is a 79 yo woman w/ PMH of migraine, depression, dementia, hypothyroidism, COPD and bronchiectasis who p/t [facility] on 03/07/20 with acute onset of diplopia and difficulty speaking. Unclear [employer]. In the ED, she was afebrile, BP 181/97, heart rate 80, respiratory rate 23, satting 96% on room air. Labs show WBC 11.77, hemoglobin 13.1, platelets 325, electrolytes within normal, BUN elevated 28, creatinine 1.46, glucose 89, INR 1.1, calcium/magnesium within normal, troponin negative, LFTs within normal. Imaging independently reviewed. CT head shows no hemorrhage or hypodensities, i s notable for mild generalized atrophy with ex vacuo dilation. CTA head and neck shows mild stenosis of the right ICA at the bifurcation, mild stenosis of the right vertebral artery in the V4 segment just proximal to the basilar, moderate R CHER stenosis, severe R vertebral artery stenosis at the origin, no LVO, high-grade stenosis or aneurysm noted. MRI brain shows no acute or chronic infarct, normal midline structures, mild to moderate SVID. Other pertinent labs includes ESR 56, A1c 5.7, CRP 0.9, LDL 138, TSH elevated at 5.17, UA no infection. On examination, she reports that she was going to the bathroom when she fell to the ground and felt like she could not move further. She was eventually able to press the emergency call button and get help herself. Reports that she had loss of bladder but denied tongue biting or loss of bowel. She is not able to give further details about what happened as she reports she does not remember and would like to take a nap. Allergies Allergy/AdvReac Type Severity Reaction Status Date / Time acetaminophen [From Midrin] AdvReac Severe angina and Unverified 03/07/20 14:35 hypertension dichloralphenazone AdvReac Severe angina and Unverified 03/07/20 14:35 [From Midrin] hypertension isometheptene [From Midrin] AdvReac Severe angina and Unverified 03/07/20 14:35 hypertension verapamil AdvReac Severe angina and Unverified 03/07/20 14:35 hypertension erythromycin base AdvReac Unknown Unknown Unverified 03/07/20 14:35 Home Medications Home Medications Medication Instructions Recorded Confirmed Type Biotin 900mcg 900 mcg PO QDD 03/07/20 03/07/20 History Magnesium 500mg 500 mg PO QDD 03/07/20 03/07/20 History Vitamin A 2400mcg 2,400 mcg PO QDD 03/07/20 03/07/20 History acetaminophen [Tylenol Extra 1,000 mg PO HS 03/07/20 03/07/20 History Strength] albuterol sulfate 2.5 mg INHALATION Q4H PRN 03/07/20 03/07/20 History ascorbic acid (vitamin C) [Vitamin 500 mg PO QAM 03/07/20 03/07/20 History C] azelastine 2 spray INTRANASAL BIDM 03/07/20 03/07/20 History budesonide-formoterol [Symbicort] 2 puff INHALATION HS 03/07/20 03/07/20 History bupropion HCl 150 mg PO QAM 03/07/20 03/07/20 History calcium carbonate [Calcium 600] 600 mg PO QDD 03/07/20 03/07/20 History cetirizine [Zyrtec] 10 mg PO HS 03/07/20 03/07/20 History cholecalciferol (vitamin D3) 25 mcg PO QDD 03/07/20 03/07/20 History [Vitamin D3] clonazepam 0.5 mg PO HS 03/07/20 03/07/20 History docusate sodium [Stool Softener] 300 mg PO HS 03/07/20 03/07/20 History fluocinonide 1 applic TOPICAL BID PRN 03/07/20 03/07/20 History levomefolate calcium 7.5 mg PO QAM 03/07/20 03/07/20 History [L-Methylfolate] levothyroxine 112 mcg PO QAM 03/07/20 03/07/20 History niacin 500 mg PO QAM 03/07/20 03/07/20 History omeprazole magnesium [Prilosec OTC] 20 mg PO QAM 03/07/20 03/07/20 History sertraline 100 mg PO BIDM 03/07/20 03/07/20 History tiotropium bromide [Spiriva with 1 cap INHALATION QAM 03/07/20 03/07/20 History HandiHaler] tobramycin with nebulizer 300 mg INHALATION Q12H 03/07/20 03/07/20 History verapamil 180 mg PO BIDM 03/07/20 03/07/20 History Patient History Medical History Bronchiectasis COPD (chronic obstructive pulmonary disease) Dementia Depression Hypothyroid Migraine Surgical History History of tonsillectomy History of tubal ligation Family History Other Family history non-contributory Social History Smoking Status: Former smoker Hx Alcohol Use: No Hx Substance Use: No Preferred Language: Frisian Communication Ability: Effective 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 HEENT: No conjunctival injection, no rhinorrhea. CV: RRR, no peripheral edema PULM: Nonlabored respirations on room air. Neuro Exam: MS: Awake and Alert. Oriented to person, being in a hospital, but not date. Speech fluent and appropriate without dysarthria or paraphasic errors. Language intact including naming, comprehension, repetition. Cognition and memory mildly impaired. Attention intact. No neglect. CN: Visual shin full (within constraints of her underlying reported vision issues). No clear optic disc edema on fundoscopic exam. PERRLA OU. EOMI without nystagmus. Facial sensation intact to LT. Facial muscles full and symmetric. Hearing intact to conversation. Uvula midline with symmetric palatal elevation. Shoulder shrug normal. Tongue midline. MOTOR: Normal bulk and tone. No pronator drift. BUE strength 5-/5 at deltoids, biceps, triceps, wrist flexors and extensors, and hand grasp bilaterally. BLE strength 4+/5 at iliopsoas, hamstrings, quadriceps, tibialis anterior, and gastrocnemius bilaterally. REFLEXES: 1+ at biceps, triceps, brachioradialis, absent patella and absent Achilles bilaterally. Flexor plantar responses bilaterally. SENSORY: Intact to LT without extinction to double simultaneous stimuli. Vibration and pinprick intact throughout. COORDINATION: No dysmetria or ataxia on jbivmg-go-cbna bilaterally. Normal Khanh bilaterally. GAIT: deferred given physical status Results & Data ([facility]) Vital Signs (Past 12 Hours) Vital Signs Temp Pulse Pulse Resp BP Pulse Ox 03/08/20 11:31 37.0 C 82 20 120/69 94 03/08/20 11:10 73 16 94 03/08/20 08:15 36.9 C 80 20 128/74 94 03/08/20 07:22 83 03/08/20 07:19 87 03/08/20 02:44 36.5 C 84 18 130/81 97 PG Care Time/CCT Total # of Minutes Spent Total Time Spent with Patient: Total time spent is greater than 50% in coordination of care (as documented) at patient's floor/unit and/or counseling patient: Coding Level of Care Code 52792 Initial Inpt Care Lvl 3 Diagnoses Dementia G30.9; F02.80 Dementia type: Alzheimer's disease Alzheimer's disease onset: unspecified onset Dementia behavioral disturbance: without behavioral disturbance Confusion R41.0 Double vision H53.2 Transient cerebral ischemia G45.9 Transient cerebral ischemia type: unspecified (1) Dementia Dementia type: Alzheimer's disease Alzheimer's disease onset: unspecified onset Dementia behavioral disturbance: without behavioral disturbance Qualified Code(s): G30.9 - Alzheimer's disease, unspecified; F02.80 - Dementia in other diseases classified elsewhere without behavioral disturbance (2) Transient cerebral ischemia Transient cerebral ischemia type: unspecified Qualified Code(s): G45.9 - Transient cerebral ischemic attack, unspecified
[2020-03-08] MEDS: POLYETHYLENE (MIRALAX) 17 GM PACK PO PRN (14:32)
[2020-03-08] MEDS ORDERED: ONDANSETRON INJ 2 MG/ML 2 ML VIAL IV PRN (14:44)
[2020-03-08] MEDS ORDERED: MoRPHine SULFATE 2 MG/ML CARP IV PRN (15:10)
[2020-03-08] MEDS ORDERED: PROMETHAZINE HCL 12.5 MG in SODIUM CHLORIDE 0.9% 50 ML IV PRN (16:41)
--- NOTE | 2020-03-08 16:44 | Electrocardiogram Report ---
Test Reason : Blood Pressure : / mmHG Vent. Rate : 081 BPM Atrial Rate : 081 BPM P-R Int : 244 ms QRS Dur : 108 ms QT Int : 412 ms P-R-T Axes : 076 -20 071 degrees QTc Int : 478 ms Sinus rhythm with 1st degree A-V block Left atrial enlargement Abnormal ECG No previous ECGs available Confirmed by Dane Salas ([id number]) on 03/08/2020 4:44:14 PM Referred By: REFERRED SELF Confirmed By:Mitchel Salas
--- NOTE | 2020-03-08 20:39 | CT Scan Report ---
ABDOMEN AND PELVIS CT WITH ORAL CONTRAST CT DOSE: 239.18 mGy.cm HISTORY: Acute lower abdominal pain eval for diverticultitis TECHNIQUE: Multiaxial CT images of the abdomen and pelvis were performed following the use of oral co ntrast. A dose lowering technique was utilized adhering to the principles of ALARA. COMPARISON STUDY: None. FINDINGS: Multifocal mucus plugging with tree-in-bud nodular opacities of the lung bases. Mild associ ated bronchiectasis is also noted, most pronounced within the inferior segment lingula where there is partial collapse. No pneumatosis or pneumoperitoneum. The imaged inferior cardiac chambers are unrem arkable with coronary artery calcifications. Limited evaluation of the solid abdominal organs without the use of IV contrast. The unenhanced liver, spleen and adrenal glands are unremarkable. Atrophic m orphology of the pancreas without focal abnormality identified. Moderate distention of the gallbladde r with layering intraluminal hyperdensities suggestive of vicarious excretion of contrast. No appreci able biliary ductal dilation. There is retained contrast within the renal collecting systems from recent CTA studies obtained on . Contrast is also noted within the urinary bladder which is moderately distended. Uterus and adnexa appear unremarkable. Calcified plaque of the abdominal aorta without aneurysm. No adenopathy. Distended contrast filled distal esophagus. Small hiatal hernia. The stomach is also moderately diste nded. No small bowel obstruction. Extensive fecal retention. Trace abdominal pelvic ascites. Mild wal l thickening of the transverse colon with mild associated pericolonic stranding. Noninflamed appendix . Tiny fat filled periumbilical hernia. Degenerative changes of the hips, pelvis and spine. 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 IMPRESSION: 1. No bowel obstruction. Normal appendix. 2. Extensive fecal retention with areas of associated colonic wall thickening and pericolonic strandi ng suggestive of associated colitis. 3. Trace abdominal pelvic ascites, likely reactive. 4. Retained contrast within the bilateral renal collecting systems, likely from CTA studies obtained greater than 24 hours prior compatible with decreased renal function. 5. Bibasilar mucous plugging with areas of mild bronchiectasis and diffuse tree-in-bud nodules are co mpatible with a nonspecific infectious or inflammatory bronchiolitis. 6. Additional findings as above. ACT 112: Negative or not required by law. The above report was generated using voice recognition software. It may contain grammatical, syntax o r spelling errors. Electronically signed by: Dada Angeles M.D. 03/08/2020 8:38 PM
[2020-03-08] MEDS: FLUTICASONE/VILANTEROL 100/25MCG 14 PUFFS/INHALER INH SCH (21:32)
[2020-03-08] MEDS: DOCUSATE SODIUM/SENNA 50/8.6MG TAB PO SCH (21:33)
[2020-03-08] MEDS: clonazePAM 0.5 MG TAB PO SCH (21:33)
[2020-03-08] MEDS: ACETAMINOPHEN 500 MG TAB PO SCH (21:33)
[2020-03-09] MEDS ORDERED: SOD PHOSPHATE/SOD BIPHOSPHATE ENEMA 132 ML BTL PR STA (04:01)
[2020-03-09] MEDS: LACTATED RINGER'S 1,000 ML IV SCH ×3 (04:49→21:01)
[2020-03-09 06:19] LABS: Appearance Urine Clear (Clear); Blood Urine Negative (Negative); Glucose Urine UA Negative (Negative); Ketones Urine Trace (Negative); Leukocyte Esterase Urine 1+ (Negative); Nitrite Urine Positive (Negative); Protein Urine Negative (Negative); Specific Gravity Urine 1.023 (1.000-1.030); Urobilinogen Urine Negative (Negative)
[2020-03-09 06:26] LABS: Bilirubin Urine Negative (Negative); Color Urine Amber; Ictotest Urine Negative (Negative)
[2020-03-09 06:34] LABS: Bacteria Urine Automated 1+ (Negative); Cast Urine Automated >30 /lpf (0-5); RBC Urine Automated 0-4 /hpf (0-4)
[2020-03-09] MEDS: LEVOTHYROXINE SODIUM 112 MCG TABLET PO SCH (06:36)
[2020-03-09] MEDS: TOBRAMYCIN SULFATE 300 MG in SYRINGE 0 ML INH SCH ×2 (07:09→20:17)
[2020-03-09] MEDS: SERTRALINE HCL 100 MG TABLET PO SCH (07:44)
[2020-03-09] MEDS: DOCUSATE SODIUM/SENNA 50/8.6MG TAB PO SCH ×2 (07:44→21:03)
[2020-03-09] MEDS: AZELASTINE ~ ORDER AWAITING ACTION SCH ×3 (07:44→23:50)
[2020-03-09] MEDS: VERAPAMIL HCL 180 MG TABCR PO SCH ×2 (07:44→18:07)
[2020-03-09] MEDS: buPROPion XL 150 MG TABCR PO SCH (07:45)
[2020-03-09] MEDS: PANTOprazole 40 MG TAB PO SCH (07:45)
[2020-03-09] MEDS: ASPIRIN 81 MG ECTAB PO SCH (07:45)
[2020-03-09] MEDS: UMECLIDINIUM BROMIDE 62.5MCG/BLISTER 7 PUFFS/INHALER INH SCH (07:45)
[2020-03-09] MEDS ORDERED: bisacodyL 10 MG SUPP PR STA (09:25)
[2020-03-09] MEDS ORDERED: LAVAGE SOLUTION 4000ML PO SCH (10:00)
--- NOTE | 2020-03-09 16:31 | Hospitalist Progress Note ---
Date of Service March 09, 2020 Assessment & Plan (1) Abdominal pain: fecal retention with significant fecal load seen on CT, disimpacted and escalated cathartic agents (2) Confusion: now with abnomal ua may consider metabolic encephalopathy due to uti poa, await culture to confirm CTA neck 03/07/20 IMPRESSION: 1. No evidence of hemodynamically significant carotid stenosis 2. Hemodynamically significant 80% diameter narrowing in the right vertebral artery origin 3. Non hemodynamically significant 25% diameter narrowing the proximal right internal carotid artery. 4. 50% diameter narrowing of the left vertebral at the C5 level, and 50% luiza meter narrowing of the right vertebral the C2 level. 5. Upper lobe bronchiectasis mucous plugging and presumed area of pleural- parenchymal scarring MRI brain 03/08/20 IMPRESSION: 1. No acute intracranial findings 2. No evidence of acute or subacute infarction 3. No evidence of intracranial mass 4. Foci of increased T2 signal within the white matter likely on a small vessel basis. HEAD CTA 03/07/20 IMPRESSION: 1. 75% diameter narrowing of the anterior cerebral artery (A2 segment) 2. 50% diameter stenosis of the right vertebral artery at the C2 level. lipids tc 225, ldl 138 and A1C 5.7 -PT/OT evaluation appreciated, 6 clicks score of 20 -Neuro Consultation appreciated -ASA 81mg po q daily (3) COPD (chronic obstructive pulmonary disease): continues to be stable . Adequate oxygenation on 2L NC. Patient with reported bronchiectasis - Continue inhaled Tobramycin Denies worsening cough or sputum at present -Continue Fluticasone/Vilanterol, Umeclidinium, Albuterol PRN (4) Dementia: Patient doing well. Mildly confused at times but overall can answer questions and follow commands, oriented x 2 . Son updated -Delirium prevention strategies (5) Depression: Chronic Bupropion 150mg po qAM, Sertraline 100mg po daily -Clonazepam 0.5mg po qHS (6) Hypothyroid: Chronic tsh mildly elevated will not make changes but will recommned recheck -Continue Synthroid (7) Migraine: Currently without headache -Continue Verapamil for prophylaxis Ppx - low risk for DVT Code - Full Admission and Anticipated Discharge Date Admission Date: March 08, 2020 Subjective this pt is much improved from 03/08 most likely as Phenergan has washed out, still without bowel movements, was manually disimpacted by myself today, with good results now with increased bowel prep to clear out significant symptomatic fecal retention Review of Systems Review of Systems: Mild distress and fatigue no headache, blurry or double vision no speech or swallowing issues no chest pain, pressure or palpitations no shortness of breath, cough or wheezes b/l lower quadrant abdominal pain and nausea, no further vomiting no dysuria, hematuria or frequency no focal joint pain or swelling no back pain, CVA tenderness or radicular pain no bruising, bleeding or rashes no focal signs of weakness or numbness or altered sensation no complaints of anxiety or depression, pt does have dementia. Physical Exam Physical Exam: The patient appeared thin but consistent with her stated age Vital signs as documented. Head exam is normocephalic atraumatic no scleral icterus Neck is without JVD, thyromegaly, or carotid bruits. Lungs are clear to auscultation, no focal loss of breath sounds Cardiac exam, Rhythm is regular.. No murmurs, rubs or gallops. Abdominal exam reveals normal to hyper bowel sounds, soft distended tympanitic with rebound tenderness bilateral lower quadrants no rigid abdomen or guarding rectal exam with good tone, large ball of soft stool in rectum manually removed Extremities are nonedematous and both pedal pulses are present Neurologic exam is alert and oriented x2, no focal loss of strength or sensation Skin is without bruises or rashes Psychologically is with concerned for dementia Results & Data Results & Data ([facility]) Vital Signs (Past 12 Hours) Vital Signs Temp Pulse Pulse Resp BP Pulse Ox 03/09/20 15:30 98.4 F 93 H 20 103/60 95 03/09/20 11:11 99.0 F 99 H 20 95/54 L 90 03/09/20 08:00 93 H 03/09/20 07:11 76 18 97 03/09/20 06:59 98.2 F 97 H 20 115/65 96 PG Care Time/CCT Total # of Minutes Spent Total Time Spent with Patient: Total time spent is greater than 50% in coordina tion of care (as documented) at patient's floor/unit and/or counseling patient: Coding Level of Care Code 74938 Subseq Hosp Care Lvl 3 Diagnoses Abdominal pain R10.9 Confusion R41.0 COPD (chronic obstructive pulmonary disease) J44.9 COPD type: unspecified COPD Dementia G30.9; F02.80 Dementia type: Alzheimer's disease Alzheimer's disease onset: unspecified onset Dementia behavioral disturbance: without behavioral disturbance Depression F32.9 Depression Type: major depressive disorder Major depression recurrence: unspecified whether recurrent Active/Remission status: remission status unspecified Hypothyroid E03.9 Hypothyroidism type: unspecified Migraine G43.909 Migraine type: unspecified Status migrainosus presence: without status migrainosus Intractability: not intractable (1) COPD (chronic obstructive pulmonary disease) COPD type: unspecified COPD Qualified Code(s): J44.9 - Chronic obstructive pulmonary disease, unspecified (2) Dementia Dementia type: Alzheimer's disease Alzheimer's disease onset: unspecified onset Dementia behavioral disturbance: without behavioral disturbance Qualified Code(s): G30.9 - Alzheimer's disease, unspecified; F02.80 - Dementia in other diseases classified elsewhere without behavioral disturbance (3) Depression Depression Type: major depressive disorder Major depression recurrence: unspecified whether recurrent Active/Remission status: remission status unspecified Qualified Code(s): F32.9 - Major depressive disorder, single episode, unspecified (4) Hypothyroid Hypothyroidism type: unspecified Qualified Code(s): E03.9 - Hypothyroidism, unspecified (5) Migraine Migraine type: unspecified Status migrainosus presence: without status migrainosus Intractability: not intractable Qualified Code(s): G43.909 - Migraine, unspecified, not intractable, without status migrainosus
[2020-03-09] MEDS ORDERED: traMADol HCL 50 MG TABLET PO STA (20:09)
[2020-03-09] MEDS: FLUTICASONE/VILANTEROL 100/25MCG 14 PUFFS/INHALER INH SCH (21:02)
[2020-03-09] MEDS: clonazePAM 0.5 MG TAB PO SCH (21:02)
[2020-03-09] MEDS: ACETAMINOPHEN 500 MG TAB PO SCH (21:03)
[2020-03-10] MEDS: ONDANSETRON INJ 2 MG/ML 2 ML VIAL IV PRN (03:50)
[2020-03-10] MEDS: LACTATED RINGER'S 1,000 ML IV SCH ×2 (05:07→12:30)
[2020-03-10] MEDS: LEVOTHYROXINE SODIUM 112 MCG TABLET PO SCH (06:23)
[2020-03-10] MEDS: TOBRAMYCIN SULFATE 300 MG in SYRINGE 0 ML INH SCH ×2 (07:06→19:29)
[2020-03-10] MEDS: AZELASTINE ~ ORDER AWAITING ACTION SCH ×2 (08:15→15:26)
[2020-03-10] MEDS: PANTOprazole 40 MG TAB PO SCH (08:16)
[2020-03-10] MEDS: VERAPAMIL HCL 180 MG TABCR PO SCH ×2 (08:16→16:26)
[2020-03-10] MEDS: SERTRALINE HCL 100 MG TABLET PO SCH (08:17)
[2020-03-10] MEDS: UMECLIDINIUM BROMIDE 62.5MCG/BLISTER 7 PUFFS/INHALER INH SCH (08:17)
[2020-03-10] MEDS: ASPIRIN 81 MG ECTAB PO SCH (08:17)
[2020-03-10] MEDS: buPROPion XL 150 MG TABCR PO SCH (08:17)
[2020-03-10] MEDS: POLYETHYLENE (MIRALAX) 17 GM PACK PO SCH (08:18)
[2020-03-10] MEDS: DOCUSATE SODIUM/SENNA 50/8.6MG TAB PO SCH ×2 (08:18→20:31)
[2020-03-10 14:17] LABS: Albumin Globulin Ratio 0.6 (0.9-2); Albumin Level 2.2 gm/dl (3.4-5.0); BUN Creatinine Ratio 30.7 (10-20); Bilirubin,Total 0.4 mg/dl (0.2-1); Calcium 8.6 mg/dl (8.5-10.1); Creatinine Clr Calc Pharmacy 22.2 ml/min; Est GFR (African American) 33.6; Globulin 3.6 gm/dl (2.5-4.0); Potassium 3.8 mmol/L (3.5-5.1); Total Protein 5.8 gm/dl (6.4-8.2)
[2020-03-10 14:23] LABS: Basophils # (auto) 0.01 K/uL (0-0.2); Hematocrit (blood only) 34.5 % (37-47); Immature Granulocytes # (auto) 0.37 K/uL (0.00-0.02); Immature Granulocytes % (auto) 1.1 %; Lymphocytes % (auto) 4.3 %; Mean Corpuscular Hemoglobin 27.7 pg (25-34); Mean Corpuscular Hgb Conc 31.9 g/dL (32-36); Mean Corpuscular Volume 86.9 fL (80-100); Mean Platelet Volume 9.6 fL (7.4-10.4); Monocytes # (auto) 2.07 K/uL (0.11-0.59); Monocytes % (auto) 5.9 %; Neutrophils % (auto) 88.7 %; Platelet Count 266 K/uL (130-400); RDW Coefficient of Variation 14.5 % (11.5-14.5); RDW Standard Deviation 46.3 fL (36.4-46.3); Red Blood Count 3.97 M/uL (4.2-5.4); White Blood Count 34.95 K/uL (4.8-10.8)
[2020-03-10] MEDS ORDERED: SODIUM CHLORIDE 0.9% 1000ML 1,000 ML IV ONE (14:53)
[2020-03-10] MEDS ORDERED: CIPROFLOXACIN / D5W 200 MG/100 ML BAG IV SCH (15:00)
--- NOTE | 2020-03-10 15:33 | Hospitalist Progress Note ---
Date of Service March 10, 2020 Assessment & Plan (1) Abdominal pain: Abdominal pain continues. The patient did have manual disimpaction on 03/09 she still has not had production of stool. Given her leukocytosis we have instituted antibiotics to cover enteric organisms with levofloxacin and metronidazole. Will order a C DiF although this might be difficult to interpret given her recent cathartic agents Jean catheter replaced to track urine output, fluid bolus was given with concern for possible early sepsis although not confirmed (2) Confusion: Confusion continues may be clouded by medications urinalysis is resulted negative for UTI source of metabolic encephalopathy has not been yet determined however it could be her colitis which is being treated with antibiotics currently. Stroke is been ruled out and TIA is less likely now given the fact that the patient has had infectious etiologies more apparent CTA neck 03/07/20 IMPRESSION: 1. No evidence of hemodynamically significant carotid stenosis 2. Hemodynamically significant 80% diameter narrowing in the right vertebral artery origin 3. Non hemodynamically significant 25% diameter narrowing the proximal right internal carotid artery. 4. 50% diameter narrowing of the left vertebral at the C5 level, and 50% diameter narrowing of the right vertebral the C2 level. 5. Upper lobe bronchiectasis mucous plugging and presumed area of pleural- parenchymal scarring MRI brain 03/08/20 IMPRESSION: 1. No acute intracranial findings 2. No evidence of acute or subacute infarction 3. No evidence of intracranial mass 4. Foci of increased T2 signal within the white matter likely on a small vessel basis. HEAD CTA 03/07/20 IMPRESSION: 1. 75% diameter narrowing of the anterior cerebral artery (A2 segment) 2. 50% diameter stenosis of the right vertebral artery at the C2 level. lipids tc 225, ldl 138 and A1C 5.7 -PT/OT evaluation appreciated, 6 clicks score of 20 -Neuro Consultation appreciated -ASA 81mg po q daily (3) COPD (chronic obstructive pulmonary disease): continues to be stable . Adequate oxygenation on 2L NC. Patient with reported bronchiectasis - Continue inhaled Tobramycin Denies worsening cough or sputum at present -Continue Fluticasone/Vilanterol, Umeclidinium, Albuterol PRN (4) Dementia: Patient doing well. Mildly confused at times but overall can answer questions and follow commands, oriented x 2 . Son updated -Delirium prevention strategies (5) Depression: Chronic Bupropion 150mg po qAM, Sertraline 100mg po daily -Clonazepam 0.5mg po qHS has been held in the face of her confusion (6) Hypothyroid: Chronic tsh mildly elevated will not make changes but will recommned recheck -Continue Synthroid (7) Migraine: Currently without headache -Continue Verapamil for prophylaxis Ppx - low risk for DVT Code - Full Admission and Anticipated Discharge Date Admission Date: March 08, 2020 Her son, Mak, phone number is [phone] Subjective Is a mild nonproductive Patient is an operative cough white count 35,[address] scans were undertaken to evaluate for free air Review of Systems Review of Systems: Mild distress and fatigue no headache, blurry or double vision no speech or swallowing issues no chest pain, pressure or palpitations no shortness of breath, cough or wheezes She still has some abdominal pain which is worse with movement and examination no nausea or vomiting very little stool production no dysuria, hematuria or frequency no focal joint pain or swelling no back pain, CVA tenderness or radicular pain no bruising, bleeding or rashes no focal signs of weakness or numbness or altered sensation no complaints of anxiety or depression, pt does have dementia. Physical Exam Physical Exam: The patient appeared thin but consistent with her stated age Vital signs as documented. Head exam is normocephalic atraumatic no scleral icterus Neck is without JVD, thyromegaly, or carotid bruits. Lungs are clear to auscultation, no focal loss of breath sounds Cardiac exam, Rhythm is regular.. No murmurs, rubs or gallops. Abdominal exam reveals normal bowel sounds, soft distended & tympanitic continues with worsening tenderness to examination rectal exam with good tone, large ball of soft stool in rectum manually removed Extremities are nonedematous and both pedal pulses are present Neurologic exam is alert and oriented x2, no focal loss of strength or sensation Skin is without bruises or rashes Psychologically is with concerned for dementia Results & Data Results & Data ([facility]) Vital Signs (Past 12 Hours) Vital Signs Temp Pulse Pulse Resp BP BP Pulse Ox 03/10/20 11:20 99.1 F 97 H 16 98/57 L 93 03/10/20 08:00 104 H 03/10/20 07:20 98.8 F 101 H 20 107/58 L 97 03/10/20 07:06 101 H 20 84 L 03/10/20 04:15 98.8 F 97 H 20 116/64 94 PG Care Time/CCT Total # of Minutes Spent Total Time Spent with Patient: Total time spent is greater than 50% in coordination of care (as documented) at patient's floor/unit and/or counseling patient: Coding Level of Care Code 26070 Subseq Hosp Care Lvl 3 Diagnoses Abdominal pain R10.9 Confusion R41.0 COPD (chronic obstructive pulmonary disease) J44.9 COPD type: unspecified COPD Dementia G30.9; F02.80 Alzheimer's disease onset: unspecified onset Dementia behavioral disturbance: without behavioral disturbance Dementia type: Alzheimer's disease Depression F32.9 Active/Remission status: remission status unspecified Depression Type: major depressive disorder Major depression recurrence: unspecified whether recurrent Hypothyroid E03.9 Hypothyroidism type: unspecified Migraine G43.909 Intractability: not intractable Migraine type: unspecified Status migrainosus presence: without status migrainosus (1) Dementia Alzheimer's disease onset: unspecified onset Dementia behavioral disturbance: without behavioral disturbance Dementia type: Alzheimer's disease Qualified Code(s): G30.9 - Alzheimer's disease, unspecified; F02.80 - Dementia in other diseases classified elsewhere without behavioral disturbance (2) Depression Active/Remission status: remission status unspecified Depression Type: major depressive disorder Major depression recurrence: unspecified whether recurrent Qualified Code(s): F32.9 - Major depressive disorder, single episode, unspecified (3) Migraine Intractability: not intractable Migraine type: unspecified Status migrainosus presence: without status migrainosus Qualified Code(s): G43.909 - Migraine, unspecified, not intractable, without status migrainosus (4) Hypothyroid Hypothyroidism type: unspecified Qualified Code(s): E03.9 - Hypothyroidism, unspecified (5) COPD (chronic obstructive pulmonary disease) COPD type: unspecified COPD Qualified Code(s): J44.9 - Chronic obstructive pulmonary disease, unspecified
--- NOTE | 2020-03-10 15:48 | XRay Report ---
XR abdomen 2V w PA chest HISTORY: 79 years-old Female eval for free air acute generalized abdominal pain COMPARISON: CT abdomen and pelvis 03/08/2020 TECHNIQUE: Upright AP view the chest with erect and supine views of the abdomen FINDINGS: Cardiac silhouette is normal. Diffuse bilateral reticular nodular opacities. No pneumothorax. Mild bl unting of the left costophrenic angle without large pleural effusion. Subsegmental left lateral lung base consolidation. No overt pulmonary edema. Degenerative changes of the shoulders and spine. Extensive fecal retention of the right hemicolon, rectum and sigmoid. There is a curvilinear subdiaph ragmatic lucency noted on the right. Vascular calcifications are noted. Degenerative changes of the s pine, pelvis and hips. No acute fracture. IMPRESSION: 1. Constipation with nonobstructive bowel gas pattern. 2. Right subdiaphragmatic lucency may reflect aerated lung posterior to the diaphragm versus pneumope ritoneum. Correlation with a follow-up CT abdomen and pelvis is recommended to further evaluate. 3. Diffuse bilateral reticular nodular opacities are compatible with a nonspecific infectious or infl ammatory pneumonitis/bronchiolitis. 4. Mild left lateral lung base consolidation suggests atelectasis versus pneumonia. ACT 112: Negative or not required by law. The above report was generated using voice recognition software. It may contain grammatical, syntax o r spelling errors. Electronically signed by: Dada Angeles M.D. 03/10/2020 3:47 PM
[2020-03-10] MEDS: metroNIDAZOLE 500 MG/100 ML BAG IV SCH ×2 (16:25→22:46)
[2020-03-10] MEDS ORDERED: levoFLOXacin/D5W 750 MG/150 ML BAG IV SCH (17:00)
--- NOTE | 2020-03-10 17:16 | CT Scan Report ---
CT SCAN OF THE ABDOMEN AND PELVIS WITHOUT CONTRAST CLINICAL HISTORY: Abdominal pain COMPARISON STUDY: 03/08/2020 TECHNIQUE: CT scan of the abdomen and pelvis was performed from the lung bases to the proximal femurs . Images are reviewed in the axial, sagittal, and coronal planes. IV contrast was not administered fo r this examination. A dose lowering technique was utilized adhering to the principles of ALARA. CT DOSE: 251.75 mGy.cm FINDINGS: Lower chest: There is lower lobe bronchiectasis and mucous plugging. There is a 12 mm left lower lobe opacity not present on the prior study and therefore likely atelectatic/inflammatory. There is a sma ll left pleural effusion and tiny right pleural effusion Liver: The unenhanced liver is normal in size, contour, and attenuation. There is no intrahepatic damion iary ductal dilatation. Gallbladder: Mildly distended. Suspected cholelithiasis. Spleen: Normal in size and attenuation. Pancreas: Unremarkable. Adrenal glands: Unremarkable. Kidneys: No renal, ureteral, or bladder calculi are visualized. Bowel: There are no transition transition zones indicate bowel obstruction. There is significant colt l wall thickening involving the transverse and descending colon consistent with a colitis. Peritoneum: There is low volume ascites, finding which is developed since the preceding study. There is a small fat-containing umbilical hernia Vasculature: The abdominal aorta is normal in course and caliber. Adenopathy: None. Pelvic viscera: The uterus is surgically absent. There is pelvic floor relaxation. There is an indwel ling Jean catheter. Skeletal structures: No destructive osseous lesions are seen. IMPRESSION: 1. Progressive bowel wall thickening involving the transverse and descending colon indicative of a wo rsening colitis. There is mild surrounding pericolonic edema 2. Interval development of low volume ascites 3. No free air. No portal venous gas 4. Probable cholelithiasis 5. Pelvic floor relaxation 6. Fecal retention 7. Lower lobe bronchiectasis and mucous plugging. Small left pleural effusions with associated left b asilar opacities atelectatic versus pneumonia. ACT 112: Negative or not required by law. Electronically signed by: Alessandro Barron M.D. 03/10/2020 5:15 PM
[2020-03-10] MEDS: FLUTICASONE/VILANTEROL 100/25MCG 14 PUFFS/INHALER INH SCH (20:31)
[2020-03-10] MEDS: ACETAMINOPHEN 500 MG TAB PO SCH (20:32)
[2020-03-10] MEDS: clonazePAM 0.5 MG TAB PO SCH (20:33)
[2020-03-11] MEDS: AZELASTINE ~ ORDER AWAITING ACTION SCH ×3 (01:22→15:58)
[2020-03-11] MEDS ORDERED: traMADol HCL 50 MG TABLET PO STA (01:55)
[2020-03-11] MEDS: LACTATED RINGER'S 1,000 ML IV SCH ×3 (02:30→17:54)
[2020-03-11] MEDS ORDERED: Nursing to Pharmacy Communication SCH (03:45)
[2020-03-11] MEDS: metroNIDAZOLE 500 MG/100 ML BAG IV SCH ×3 (06:27→21:49)
[2020-03-11] MEDS: LEVOTHYROXINE SODIUM 112 MCG TABLET PO SCH (06:28)
[2020-03-11] MEDS: DOCUSATE SODIUM/SENNA 50/8.6MG TAB PO SCH ×2 (07:39→19:48)
[2020-03-11] MEDS: ASPIRIN 81 MG ECTAB PO SCH (07:40)
[2020-03-11] MEDS: PANTOprazole 40 MG TAB PO SCH (07:40)
[2020-03-11] MEDS: SERTRALINE HCL 100 MG TABLET PO SCH (07:40)
[2020-03-11] MEDS: VERAPAMIL HCL 180 MG TABCR PO SCH (07:40)
[2020-03-11] MEDS: buPROPion XL 150 MG TABCR PO SCH (07:40)
[2020-03-11] MEDS: UMECLIDINIUM BROMIDE 62.5MCG/BLISTER 7 PUFFS/INHALER INH SCH (07:41)
[2020-03-11] MEDS: POLYETHYLENE (MIRALAX) 17 GM PACK PO SCH (07:41)
[2020-03-11 08:28] LABS: Hematocrit (blood only) 35.1 % (37-47); Hemoglobin 11.2 g/dL (12.0-16.0); Mean Corpuscular Hemoglobin 28.1 pg (25-34); Mean Corpuscular Hgb Conc 31.9 g/dL (32-36); Mean Corpuscular Volume 88.2 fL (80-100); Mean Platelet Volume 9.6 fL (7.4-10.4); Platelet Count 258 K/uL (130-400); RDW Coefficient of Variation 14.6 % (11.5-14.5); RDW Standard Deviation 47.6 fL (36.4-46.3); Red Blood Count 3.98 M/uL (4.2-5.4); White Blood Count 25.67 K/uL (4.8-10.8)
[2020-03-11 08:50] LABS: Basophils # (auto) 0.01 K/uL (0-0.2); Immature Granulocytes # (auto) 0.11 K/uL (0.00-0.02); Immature Granulocytes % (auto) 0.4 %; Lymphocytes # (auto) 0.59 K/uL (1.2-3.4); Lymphocytes % (auto) 2.3 %; Monocytes # (auto) 2.15 K/uL (0.11-0.59); Monocytes % (auto) 8.4 %; Neutrophils # (auto) 22.81 K/uL (1.4-6.5); Neutrophils % (auto) 88.9 %
[2020-03-11] MEDS: TOBRAMYCIN SULFATE 300 MG in SYRINGE 0 ML INH SCH ×2 (08:52→20:16)
[2020-03-11 09:01] LABS: Albumin Level 2.1 gm/dl (3.4-5.0); BUN Creatinine Ratio 32.8 (10-20); Calcium 8.8 mg/dl (8.5-10.1); Creatinine Clr Calc Pharmacy 28.7 ml/min; Est GFR (Non-African American) 37.1; Potassium 3.4 mmol/L (3.5-5.1)
[2020-03-11 09:04] LABS: Albumin Globulin Ratio 0.6 (0.9-2); Bilirubin,Total 0.4 mg/dl (0.2-1); Globulin 3.7 gm/dl (2.5-4.0); Total Protein 5.8 gm/dl (6.4-8.2)
[2020-03-11] MEDS ORDERED: MAGNESIUM CITRATE 296 ML/BTL PO STA (11:59)
--- NOTE | 2020-03-11 13:02 | Hospitalist Progress Note ---
Date of Service March 11, 2020 Assessment & Plan (1) Abdominal pain: Abdominal pain continues. The patient did have manual disimpaction on 03/09 she still has not had production of stool. Given her leukocytosis we have instituted antibiotics to cover enteric organisms with levofloxacin and metronidazole. Will order a C DiF although this might be difficult to interpret given her recent cathartic agents Jean catheter replaced to track urine output Levofloxacin was chosen due to comments of possible basilar infiltrate seen on x-rays. She does have a mild cough this is improved on 03/11 (2) Confusion: Confusion continues may be clouded by medications urinalysis is resulted negative for UTI source of metabolic encephalopathy has not been yet determined however it could be her colitis which is being treated with antibiotics currently. Stroke is been ruled out and TIA is less likely now given the fact that the patient has had infectious etiologies more apparent CTA neck 03/07/20 IMPRESSION: 1. No evidence of hemodynamically significant carotid stenosis 2. Hemodynamically significant 80% diameter narrowing in the right vertebral artery origin 3. Non hemodynamically significant 25% diameter narrowing the proximal right internal carotid artery. 4. 50% diameter narrowing of the left vertebral at the C5 level, and 50% diameter narrowing of the right vertebral the C2 level. 5. Upper lobe bronchiectasis mucous plugging and presumed area of pleural- parenchymal scarring MRI brain 03/08/20 IMPRESSION: 1. No acute intracranial findings 2. No evidence of acute or subacute infarction 3. No evidence of intracranial mass 4. Foci of increased T2 signal within the white matter likely on a small vessel basis. HEAD CTA 03/07/20 IMPRESSION: 1. 75% diameter narrowing of the anterior cerebral artery (A2 segment) 2. 50% diameter stenosis of the right vertebral artery at the C2 level. lipids tc 225, ldl 138 and A1C 5.7 -PT/OT evaluation appreciated, 6 clicks score of 20 -Neuro Consultation appreciated -ASA 81mg po q daily (3) COPD (chronic obstructive pulmonary disease): continues to be stable . Adequate oxygenation on 2L NC. Patient with reported bronchiectasis -Elizabeth nue inhaled Tobramycin Denies worsening cough or sputum at present -Continue Fluticasone/Vilanterol, Umeclidinium, Albuterol PRN (4) Dementia: Patient doing well. Mildly confused at times but overall can answer questions and follow commands, oriented x 2 . Son updated -Delirium prevention strategies (5) Depression: Chronic Bupropion 150mg po qAM, Sertraline 100mg po daily -Clonazepam 0.5mg po qHS has been held in the face of her confusion (6) Hypothyroid: Chronic tsh mildly elevated will not make changes but will recommned recheck -Continue Synthroid (7) Migraine: Currently without headache -Continue Verapamil for prophylaxis Ppx - low risk for DVT Code - Full Admission and Anticipated Discharge Date Admission Date: March 08, 2020 Subjective Patient is seemingly no better or worse she says mild confusion. CT scan late last evening did not show any free air in her abdomen. She still has not had any significant stool production despite having significant amounts of oral cathartic agents enemas and manual digital disimpaction. Her white blood cell count was improved from 35 to 25 she has much less cough she remains on antibiotics. He is going to be allowed clear liquid diet today and see how that works Review of Systems Review of Systems: Mild distress and fatigue no headache, blurry or double vision no speech or swallowing issues no chest pain, pressure or palpitations no shortness of breath, cough or wheezes She still has some abdominal pain which is worse with movement and examination no nausea or vomiting very little stool production no dysuria, hematuria or frequency no focal joint pain or swelling no back pain, CVA tenderness or radicular pain no bruising, bleeding or rashes no focal signs of weakness or numbness or altered sensation no complaints of anxiety or depression, pt does have dementia. Physical Exam Physical Exam: The patient appeared thin but consistent with her stated age Vital signs as documented. Head exam is normocephalic atraumatic no scleral icterus Neck is without JVD, thyromegaly, or carotid bruits. Lungs are clear to auscultation, no focal loss of breath sounds Cardiac exam, Rhythm is regular.. No murmurs, rubs or gallops. Abdominal exam reveals normal bowel sounds, soft distended & tympanitic continues with worsening tenderness to examination rectal exam with good tone, large ball of soft stool in rectum manually removed Extremities are nonedematous and both pedal pulses are present Neurologic exam is alert and oriented x2, no focal loss of strength or sensation Skin is without bruises or rashes Psychologically is with concerned for dementia Results & Data Results & Data ([facility]) Vital Signs (Past 12 Hours) Vital Signs Temp Pulse Resp BP Pulse Ox 03/11/20 11:13 97.9 F 78 16 107/57 L 99 03/11/20 08:52 77 20 95 03/11/20 07:44 98.2 F 90 16 111/65 97 03/11/20 03:40 98.2 F 94 H 18 103/58 L 95 PG Care Time/CCT Total # of Minutes Spent Total Time Spent with Patient: Total time spent is greater than 50% in coordination of care (as documented) at patient's floor/unit and/or counseling patient: Coding Level of Care Code 23554 Subseq Hosp Care Lvl 3 Diagnoses Abdominal pain R10.9 Confusion R41.0 COPD (chronic obstructive pulmonary disease) J44.9 COPD type: unspecified COPD Dementia G30.9; F02.80 Dementia type: Alzheimer's disease Alzheimer's disease onset: unspecified onset Dementia behavioral disturbance: without behavioral disturbance Depression F32.9 Depression Type: major depressive disorder Major depression recurrence: unspecified whether recurrent Active/Remission status: remission status unspecified Hypothyroid E03.9 Hypothyroidism type: unspecified Migraine G43.909 Migraine type: unspecified Status migrainosus presence: without status migrainosus Intractability: not intractable (1) COPD (chronic obstructive pulmonary disease) COPD type: unspecified COPD Qualified Code(s): J44.9 - Chronic obstructive pulmonary disease, unspecified (2) Dementia Dementia type: Alzheimer's disease Alzheimer's disease onset: unspecified onset Dementia behavioral disturbance: without behavioral disturbance Qualified Code(s): G30.9 - Alzheimer's disease, unspecified; F02.80 - Dementia in other diseases classified elsewhere without behavioral disturbance (3) Depression Depression Type: major depressive disorder Major depression recurrence: unspecified whether recurrent Active/Remission status: remission status unspecified Qualified Code(s): F32.9 - Major depressive disorder, single episode, unspecified (4) Hypothyroid Hypothyroidism type: unspecified Qualified Code(s): E03.9 - Hypothyroidism, unspecified (5) Migraine Migraine type: unspecified Status migrainosus presence: without status migrainosus Intractability: not intractable Qualified Code(s): G43.909 - Migraine, unspecified, not intractable, without status migrainosus
--- NOTE | 2020-03-11 14:31 | Gastrointestinal Consultation ---
Date of Consultation March 11, 2020 Assessment & Plan (1) Ischemic colitis: -Continue Cipro & Flagyl -Obtain stat imaging study given degree of pain -Check lactic acid now -Further recommendations pending results of testing (2) Constipation: -Continue Miralax 17 gm q 6 hr until bowels begin to move at which point we can adjust her standing regimen Supervising Physician Co-Signing Physician Notes Agree with Jannet Trevizo, PAC Abd: Distended, Tender, Umbilical hernia non-reducible, guarding Reviewed prior imaging with Dr. Jay of Radiology. Patient has small fat containing umbilical hernia. No evidence of free air. Moderate to severe colitis in distal transverse and descending colon. Check Stat Abd series Check stat Lactate level now Discussed case with Dr. Cameron History of Present Illness Reason for Consultation: Constipation Attending Physician: Liam Cameron MD History of Present Illness Patient is a 79 yo female for which GI was consulted for constipation. The pa denise is admitted and has reports of abdominal pain, constipation, & distention. A CT scan of the abdomen indicated a transverse & descending colitis. WBC count was >30,000. She was placed on Cipro & Flagyl and WBC improved to 25.67. Upon presentation to the ED, she had a normal troponin. BPs were initially in the 160s systolic and now are in the 90s. She denies rectal bleeding. She reports she has kept compliant with screening colonoscopies over the years. She reports minimal bowel movements over the past several days. Imaging shows fecal retention. Patient has been given many medications from the medicine service. She has been given Miralax 17 gm for 3 doses throughout her stay along with a gallon of Golytely, bottle of Magnesium Citrate, manual disimpaction, Senna, & Enemas x 2. She reports abdominal discomfort & bloating. She has a history of bronchiectasis & COPD. She is on Levaquin to cover for possible pneumonia noted on imaging studies. Allergies Allergy/AdvReac Type Severity Reaction Status Date / Time acetaminophen [From Midrin] AdvReac Severe angina and Unverified 03/07/20 14:35 hypertension dichloralphenazone AdvReac Severe angina and Unverified 03/07/20 14:35 [From Midrin] hypertension isometheptene [From Midrin] AdvReac Severe angina and Unverified 03/07/20 14:35 hypertension verapamil AdvReac Severe angina and Unverified 03/07/20 14:35 hypertension erythromycin base AdvReac Unknown Unknown Unverified 03/07/20 14:35 Home Medications Home Medications Medication Instructions Recorded Confirmed Type Biotin 900mcg 900 mcg PO QDD 03/07/20 03/07/20 History Magnesium 500mg 500 mg PO QDD 03/07/20 03/07/20 History Vitamin A 2400mcg 2,400 mcg PO QDD 03/07/20 03/07/20 History acetaminophen [Tylenol Extra 1,000 mg PO HS 03/07/20 03/07/20 History Strength] albuterol sulfate 2.5 mg INHALATION Q4H PRN 03/07/20 03/07/20 History ascorbic acid (vitamin C) [Vitamin 500 mg PO QAM 03/07/20 03/07/20 History C] azelastine 2 spray INTRANASAL BIDM 03/07/20 03/07/20 History budesonide-formoterol [Symbicort] 2 puff INHALATION HS 03/07/20 03/07/20 History bupropion HCl 150 mg PO QAM 03/07/20 03/07/20 History calcium carbonate [Calcium 600] 600 mg PO QDD 03/07/20 03/07/20 History cetirizine [Zyrtec] 10 mg PO HS 03/07/20 03/07/20 History cholecalciferol (vitamin D3) 25 mcg PO QDD 03/07/20 03/07/20 History [Vitamin D3] clonazepam 0.5 mg PO HS 03/07/20 03/07/20 History docusate sodium [Stool Softener] 300 mg PO HS 03/07/20 03/07/20 History fluocinonide 1 applic TOPICAL BID PRN 03/07/20 03/07/20 History levomefolate calcium 7.5 mg PO QAM 03/07/20 03/07/20 History [L-Methylfolate] levothyroxine 112 mcg PO QAM 03/07/20 03/07/20 History niacin 500 mg PO QAM 03/07/20 03/07/20 History omeprazole magnesium [Prilosec OTC] 20 mg PO QAM 03/07/20 03/07/20 History sertraline 100 mg PO BIDM 03/07/20 03/07/20 History tiotropium bromide [Spiriva with 1 cap INHALATION QAM 03/07/20 03/07/20 History HandiHaler] tobramycin with nebulizer 300 mg INHALATION Q12H 03/07/20 03/07/20 History verapamil 180 mg PO BIDM 03/07/20 03/07/20 History Patient History Medical History Bronchiectasis COPD (chronic obstructive pulmonary disease) Dementia Depression Hypothyroid Migraine Surgical History History of tonsillectomy History of tubal ligation Family History Other Family history non-contributory Social History Smoking Status: Former smoker Hx Alcohol Use: No Hx Substance Use: No Preferred Language: Lao Communication Ability: Effective Napkin Machine Operator Required: No Beliefs That Will Affect Care: None marital status: / Current Living Situation: Alone Other Information That Helps Us Care for You: No Feels Safe at Home: Yes Safety Concerns: Feels Safe At This Time Assistive Devices: Glasses and Oxygen - Continuous Review of Systems Constitutional: no fever and no chills Eyes: no problem reported Ear, Nose, Mouth, Throat: no problem reported Respiratory: + cough; no dyspnea Cardiovascular: no chest pain Gastrointestinal: + abdominal pain, + bloating, + nausea and + constipation decreased appetite Genitourinary: no problem reported Musculoskeletal: no problem reported Integumentary: no problem reported Neurologic: + generalized weakness Endocrine: + fatigue Physical Exam Constitutional: WD/WN, vitals as above Eyes: no conjunctival abnormality Neck: normal visual inspection Respiratory: normal respiratory effort; no labored breathing Cardiovascular: Extremities: no edema Gastrointestinal (Abdomen): Inspection/Auscultation: + abdomen distended and normal bowel sounds Percussion/Palpation: + abdomen tender Musculoskeletal: Head/Neck/Chest: normocephalic Skin: no rashes Neurologic: + confused Psychiatric: Orientation: alert Results & Data ([facility]) Vital Signs (Past 12 Hours) Vital Signs Temp Pulse Pulse Resp BP Pulse Ox 03/11/20 11:13 36.6 C 78 16 107/57 L 99 03/11/20 08:52 77 20 95 03/11/20 08:00 90 03/11/20 07:44 36.8 C 90 16 111/65 97 03/11/20 03:40 36.8 C 94 H 18 103/58 L 95 PG Care Time/CCT Total # of Minutes Spent Total Time Spent with Patient: Total time spent is greater than 50% in coordination of care (as documented) at patient's floor/unit and/or counseling patient: Coding Level of Care Code 23663 Initial Inpt Care Lvl 3 Diagnoses Ischemic colitis K55.9 Constipation K59.00 Constipation type: unspecified constipation type (1) Constipation Constipation type: unspecified constipation type Qualified Code(s): K59.00 - Constipation, unspecified
[2020-03-11] MEDS: ONDANSETRON INJ 2 MG/ML 2 ML VIAL IV PRN (15:56)
--- NOTE | 2020-03-11 17:12 | XRay Report ---
PA CHEST RADIOGRAPH AND UPRIGHT AND SUPINE AP RADIOGRAPHS OF THE ABDOMEN CLINICAL HISTORY: Abdominal pain COMPARISON STUDY: CT of the abdomen and pelvis and abdominal series February 09, 2020. FINDINGS: Left basilar opacity persists. Interstitial thickening within the lungs is unchanged. Ther e is no pneumothorax. Cardiac size is normal. Small left pleural effusion is noted. There is no free air. Moderate amount stool within the left colon is noted. Mild colonic dilatation is unchanged. Ther e is no evidence for a small bowel obstruction. IMPRESSION: 1. No free air. 2. No change in mild colonic dilatation without evidence for a bowel obstruction. 3. Moderate amount stool within the left colon. 4. No change in a small left pleural effusion with left basilar opacity and interstitial thickening w ithin the lungs. ACT 112: Negative or not required by law. Electronically signed by: Wilson Jay M.D. 03/11/2020 5:11 PM
[2020-03-11] MEDS: clonazePAM 0.5 MG TAB PO SCH (19:46)
[2020-03-11] MEDS: FLUTICASONE/VILANTEROL 100/25MCG 14 PUFFS/INHALER INH SCH (19:47)
[2020-03-11] MEDS: ACETAMINOPHEN 500 MG TAB PO SCH (19:48)
[2020-03-12] MEDS: ONDANSETRON INJ 2 MG/ML 2 ML VIAL IV PRN (01:00)
[2020-03-12] MEDS: POLYETHYLENE (MIRALAX) 17 GM PACK PO PRN (01:00)
[2020-03-12] MEDS: LACTATED RINGER'S 1,000 ML IV SCH ×3 (01:17→18:16)
[2020-03-12] MEDS: AZELASTINE ~ ORDER AWAITING ACTION SCH ×3 (01:58→17:11)
[2020-03-12] MEDS: LEVOTHYROXINE SODIUM 112 MCG TABLET PO SCH (06:43)
[2020-03-12] MEDS: metroNIDAZOLE 500 MG/100 ML BAG IV SCH ×3 (06:43→22:20)
[2020-03-12] MEDS: TOBRAMYCIN SULFATE 300 MG in SYRINGE 0 ML INH SCH ×2 (07:10→20:23)
[2020-03-12] MEDS: UMECLIDINIUM BROMIDE 62.5MCG/BLISTER 7 PUFFS/INHALER INH SCH (07:56)
[2020-03-12 08:07] LABS: Hematocrit (blood only) 32.3 % (37-47); Hemoglobin 9.8 g/dL (12.0-16.0); Mean Corpuscular Hemoglobin 27.1 pg (25-34); Mean Corpuscular Hgb Conc 30.3 g/dL (32-36); Mean Corpuscular Volume 89.5 fL (80-100); Mean Platelet Volume 9.8 fL (7.4-10.4); Platelet Count 288 K/uL (130-400); RDW Coefficient of Variation 14.9 % (11.5-14.5); RDW Standard Deviation 49.1 fL (36.4-46.3); Red Blood Count 3.61 M/uL (4.2-5.4); White Blood Count 23.99 K/uL (4.8-10.8)
[2020-03-12] MEDS: DOCUSATE SODIUM/SENNA 50/8.6MG TAB PO SCH ×2 (08:26→20:07)
[2020-03-12] MEDS: SERTRALINE HCL 100 MG TABLET PO SCH (08:26)
[2020-03-12] MEDS: buPROPion XL 150 MG TABCR PO SCH (08:27)
[2020-03-12] MEDS: POLYETHYLENE (MIRALAX) 17 GM PACK PO SCH (08:27)
[2020-03-12] MEDS: ASPIRIN 81 MG ECTAB PO SCH (08:27)
[2020-03-12] MEDS: PANTOprazole 40 MG TAB PO SCH (08:27)
[2020-03-12 08:36] LABS: BUN Creatinine Ratio 33.8 (10-20); Calcium 8.7 mg/dl (8.5-10.1); Creatinine Clr Calc Pharmacy 33.9 ml/min; Est GFR (African American) 52.6; Est GFR (Non-African American) 45.4
--- NOTE | 2020-03-12 10:14 | Gastroenterology Progress Note ---
Date of Service March 12, 2020 Assessment & Plan (1) Ischemic colitis: -Continue IV antibiotics, could consider switch to Zosyn and investigating for other sources of infection if no improvement of WBC count -Diet as tolerated -Obtain stool culture to rule out infectious cause, though given constipation this seems unlikely -Colonoscopy is contraindicated given severity of colitis -Supportive care per primary team (2) Constipation: -Miralax 17 gm q 6 hours -Encourage hydration, particularly in the setting of hypokalemia & laxative use Present on Admission?: No Admission and Anticipated Discharge Date Admission Date: March 08, 2020 Supervising Physician Co-Signing Physician Notes Agree with Jannet Trevizo, PAC Abd: Distended, Tenderness at umbilical hernia and LUQ Clearly the most likely cause is Ischemic colitis with history of constipation and drop in blood pressure during hospitalization. Continue supportive care No plans for colonoscopy as it is contraindicated at this time Subjective Patient is a 79 yo female with abdominal pain, constipation, and possible ischemic colitis. The patient reports improvement of her abdominal pain. She is eating a light diet this AM. She reports that she did have formed stool in the afternoon on 03/11. She denies bleeding. Xray from 03/11 did not indicate any evidence of perforation. There was some fecal retention. Patient denies new complaints. Her WBC count remains markedly elevated. She is on Cipro & Flagyl along with Levaquin. Review of Systems Constitutional: no fever and no chills Respiratory: no cough and no dyspnea Cardiovascular: no chest pain Gastrointestinal: no abdominal pain, no nausea, no vomiting and no blood in stools Physical Exam Constitutional: WD/WN, vitals as above Neck: normal visual inspection Respiratory: no respiratory distress Cardiovascular: Extremities: no edema Gastrointestinal (Abdomen): Inspection/Auscultation: + abdomen distended and normal bowel sounds Percussion/Palpation: + abdomen tender (some tenderness on palpation), + guarding and + hernia Skin: no rashes Psychiatric: A+Ox3, euthymic affect Results & Data Results & Data ([facility]) Vital Signs (Past 12 Hours) Vital Signs Temp Pulse Resp BP Pulse Ox 03/12/20 07:10 78 18 100 03/12/20 03:05 36.6 C 68 18 111/57 L 98 PG Care Time/CCT Total # of Minutes Spent Total Time Spent with Patient: Total time spent is greater than 50% in coordination of care (as documented) at patient's floor/unit and/or counseling patient: Coding Level of Care Code 94437 Subseq Hosp Care Lvl 2 Diagnoses Ischemic colitis K55.9 Constipation K59.00 Constipation type: unspecified constipation type (1) Constipation Constipation type: unspecified constipation type Qualified Code(s): K59.00 - Constipation, unspecified
[2020-03-12] MEDS ORDERED: POTASSIUM CHLORIDE 10 MEQ / 100ML WTR IV STA (12:42)
[2020-03-12] MEDS ORDERED: MAGNESIUM SULFATE / D5W 1 GM/100 ML BAG IV ONE (13:00)
--- NOTE | 2020-03-12 13:11 | Surgery Consultation ---
Date of Consultation March 12, 2020 Assessment & Plan (1) Ischemic colitis: 79 yr old woman with ischemic colitis in setting of fecal impaction/ constipation. Now on laxatives with subsequent loose stools. Overall appears to be slowly improving with decreased pain and decreased leukocytosis. Given persistent abdominal distention (colonic distention on imaging), would keep npo until wbc count and symptoms improve. Explained that current options include conservative treatment with antibiotics, supportive care (would recommend broadening antibiotic coverage to zoysn), bowel rest vs colonoscopic decompression (GI feels she is too high risk) vs surgery with colectomy and likely lifetime ostomy. Latter is also high risk given her age and comorbidities, can be a difficult surgery to tolerate with subsequent issues with dehydration/ high ileostomy outputs. This should be a last resort and currently, she does not evidence any free air or worsening signs of sepsis. Will follow. Present on Admission?: Yes (2) Constipation: (3) Abdominal pain: History of Present Illness Reason for Consultation: abdominal pain and colitis Requesting Physician: Liam Cameron MD Attending Physician: Liam Cameron MD History of Present Illness 79 yr old woman admitted on 03/07 with confusion/ recent fall. Workup for stroke was negative. During her hospital stay, developed new complaint of severe lower abdominal pain, crampy, associated with nausea. Had been constipated for a number of days prior to admit. CT scan showed colitis with fecal impaction. WBC count had increased to 34,000. Started on antibiotics, laxatives, manual disimpaction. WBC count improved to 24. Abdominal pain is still present but less severe - about 4/10 at rest, mainly in lower left side, no relation to activity or eating. Notes she is having frequent loose stools which she cannot control currently. Seen by GI and diagnosed with ischemic colitis. Diet advanced. Still noted to be distended and surgery consult placed. Last imaging is a Xray f rom yesterday which shows mild colonic dilation, no evidence of obstruction, no free air. Allergies Allergy/AdvReac Type Severity Reaction Status Date / Time acetaminophen [From Midrin] AdvReac Severe angina and Unverified 03/07/20 14:35 hypertension dichloralphenazone AdvReac Severe angina and Unverified 03/07/20 14:35 [From Midrin] hypertension isometheptene [From Midrin] AdvReac Severe angina and Unverified 03/07/20 14:35 hypertension verapamil AdvReac Severe angina and Unverified 03/07/20 14:35 hypertension erythromycin base AdvReac Unknown Unknown Unverified 03/07/20 14:35 Home Medications Home Medications Medication Instructions Recorded Confirmed Type Biotin 900mcg 900 mcg PO QDD 03/07/20 03/07/20 History Magnesium 500mg 500 mg PO QDD 03/07/20 03/07/20 History Vitamin A 2400mcg 2,400 mcg PO QDD 03/07/20 03/07/20 History acetaminophen [Tylenol Extra 1,000 mg PO HS 03/07/20 03/07/20 History Strength] albuterol sulfate 2.5 mg INHALATION Q4H PRN 03/07/20 03/07/20 History ascorbic acid (vitamin C) [Vitamin 500 mg PO QAM 03/07/20 03/07/20 History C] azelastine 2 spray INTRANASAL BIDM 03/07/20 03/07/20 History budesonide-formoterol [Symbicort] 2 puff INHALATION HS 03/07/20 03/07/20 History bupropion HCl 150 mg PO QAM 03/07/20 03/07/20 History calcium carbonate [Calcium 600] 600 mg PO QDD 03/07/20 03/07/20 History cetirizine [Zyrtec] 10 mg PO HS 03/07/20 03/07/20 History cholecalciferol (vitamin D3) 25 mcg PO QDD 03/07/20 03/07/20 History [Vitamin D3] clonazepam 0.5 mg PO HS 03/07/20 03/07/20 History docusate sodium [Stool Softener] 300 mg PO HS 03/07/20 03/07/20 History fluocinonide 1 applic TOPICAL BID PRN 03/07/20 03/07/20 History levomefolate calcium 7.5 mg PO QAM 03/07/20 03/07/20 History [L-Methylfolate] levothyroxine 112 mcg PO QAM 03/07/20 03/07/20 History niacin 500 mg PO QAM 03/07/20 03/07/20 History omeprazole magnesium [Prilosec OTC] 20 mg PO QAM 03/07/20 03/07/20 History sertraline 100 mg PO BIDM 03/07/20 03/07/20 History tiotropium bromide [Spiriva with 1 cap INHALATION QAM 03/07/20 03/07/20 History HandiHaler] tobramycin with nebulizer 300 mg INHALATION Q12H 03/07/20 03/07/20 History verapamil 180 mg PO BIDM 03/07/20 03/07/20 History Patient History Medical History Bronchiectasis COPD (chronic obstructive pulmonary disease) Dementia Depression Hypothyroid Migraine Surgical History History of tonsillectomy History of tubal ligation Family History Other Family history non-contributory Social History Smoking Status: Former smoker Hx Alcohol Use: No Hx Substance Use: No Preferred Language: Kinyarwanda Communication Ability: Effective Security Patrol Officer Required: No Beliefs That Will Affect Care: None marital status: / Current Living Situation: Alone Other Information That Helps Us Care for You: No Feels Safe at Home: Yes Safety Concerns: Feels Safe At This Time Assistive Devices: Glasses, Oxygen - Continuous and Walker Review of Systems Review of Systems: All systems reviewed & are unremarkable except as noted in HPI & below Physical Exam Constitutional: WD/WN, vitals as above Eyes: PERRL, conjunctivae normal, anicteric sclerae Respiratory: normal respiratory effort; no respiratory distress Auscultation: lungs clear to auscultation bilaterally Cardiovascular: Rate/Rhythm: regular rate and regular rhythm Gastrointestinal (Abdomen): Inspection/Auscultation: + abdomen distended (moderate-severe) and normal bowel sounds Percussion/Palpation: + abdomen tender (left lower quadrant with guarding) and abdomen soft; no abdominal mass Neurologic: moves all extremities; no focal motor deficits Psychiatric: Orientation: alert Affect: euthymic affect Results & Data ([facility]) Vital Signs (Past 12 Hours) Vital Signs Temp Pulse Pulse Resp BP BP Pulse Ox 03/12/20 12:50 37.1 C 82 18 138/69 98 03/12/20 08:00 82 03/12/20 07:10 78 18 100 03/12/20 03:05 36.6 C 68 18 111/57 L 98 Laboratory Results Abnormal lab results 03/12/20 03/12/20 Range/Units 07:14 07:14 WBC 23.99 H (4.8-10.8) K/uL RBC 3.61 L (4.2-5.4) M/uL Hgb 9.8 L (12.0-16.0) g/dL Hct 32.3 L (37-47) % MCHC 30.3 L (32-36) g/dL RDW Std Deviation 49.1 H (36.4-46.3) fL RDW Coeff of Wilver 14.9 H (11.5-14.5) % Potassium 3.0 L (3.5-5.1) mmol/L BUN 39 H (7-18) mg/dl BUN/Creatinine Ratio 33.8 H (10-20) Diagnostic Findings CT scan abd/ pelvis: IMPRESSION: 1. Progressive bowel wall thickening involving the transverse and descending colon indicative of a worsening colitis. There is mild surrounding pericolonic edema 2. Interval development of low volume ascites 3. No free air. No portal venous gas 4. Probable cholelithiasis 5. Pelvic floor relaxation 6. Fecal retention 7. Lower lobe bronchiectasis and mucous plugging. Small left pleural effusions with associated left basilar opacities atelectatic versus pneumonia. (1) Constipation Constipation type: unspecified constipation type Qualified Code(s): K59.00 - Constipation, unspecified
[2020-03-12] MEDS: POTASSIUM CHLORIDE / WTR 10 MEQ/100 ML PLCT IV SCH ×5 (13:19→17:49)
[2020-03-12] MEDS ORDERED: DEXTROSE 10% 1,000 ML IV PRN (14:28)
[2020-03-12] MEDS ORDERED: PIPERACILL/TAZOBAC CONSULT ACTIVE PRN (14:28)
[2020-03-12] MEDS ORDERED: TPN/PPN CONSULT PHARMACY PRN (14:35)
[2020-03-12] MEDS ORDERED: PIPERACILLIN/TAZOBACTAM 3.375 GM in DEXTROSE 5% 100 ML IV ONE (15:00)
[2020-03-12] MEDS ORDERED: Custom Peripheral Pn 1 ML in TPN BAG 0 ML IV SCH (16:00)
--- NOTE | 2020-03-12 19:24 | Hospitalist Progress Note ---
Date of Service March 12, 2020 Assessment & Plan (1) Abdominal pain: Abdominal pain with slilght improvement. The patient did have manual disimpaction on 03/09 she still has not had production of stool. surgery recommends change to zosyn and metronidazole. might be difficult to interpret given her recent cathartic agents if pt is persistently distended will consider peripheral feeding Jean catheter replaced to track urine output, fluid bolus was given with concern for possible early sepsis although not confirmed (2) Confusion: Confusion continues to improve could be metabolic encephalopathy has not been yet determined however it could be her colitis which is being treated with antibiotics currently. Stroke is been ruled out and TIA is less likely now given the fact that the patient has had most likely colitis on admission CTA neck 03/07/20 IMPRESSION: 1. No evidence of hemodynamically significant carotid stenosis 2. Hemodynamically significant 80% diameter narrowing in the right vertebral artery origin 3. Non hemodynamically significant 25% diameter narrowing the proximal right internal carotid artery. 4. 50% diameter narrowing of the left vertebral at the C5 level, and 50% diameter narrowing of the right vertebral the C2 level. 5. Upper lobe bronchiectasis mucous plugging and presumed area of pleural- parenchymal scarring MRI brain 03/08/20 IMPRESSION: 1. No acute intracranial findings 2. No evidence of acute or subacute infarction 3. No evidence of intracranial mass 4. Foci of increased T2 signal within the white matter likely on a small vessel basis. HEAD CTA 03/07/20 IMPRESSION: 1. 75% diameter narrowing of the anterior cerebral artery (A2 segment) 2. 50% diameter stenosis of the right vertebral artery at the C2 level. lipids tc 225, ldl 138 and A1C 5.7 -PT/OT evaluation appreciated, 6 clicks score of 20 -Neuro Consultation appreciated -ASA 81mg po q daily (3) COPD (chronic obstructive pulmonary disease): continues to be stable . Adequate oxygenation on 2L NC. Patient with reported bronchiectasis - Continue inhaled Tobramycin Denies worsening cough or sputum at present -Continue Fluticasone/Vilanterol, Umeclidinium, Albuterol PRN (4) Dementia: Patient doing well. Mildly confused at times but overall can answer questions and follow commands, oriented x 2 . adry updated -Delirium prevention strategies (5) Depression: Chronic Bupropion 150mg po qAM, Sertraline 100mg po daily -Clonazepam 0.5mg po qHS has been held in the face of her confusion (6) Hypothyroid: Chronic tsh mildly elevated will not make changes but will recommned recheck -Continue Synthroid (7) Migraine: Currently without headache -did stop verapamil for its association with constipation Code - Full Admission and Anticipated Discharge Date Admission Date: March 08, 2020 Subjective Patient is a 79 yo female with abdominal pain, constipation, and possible ischemic colitis. She did have a bowel movement this afternoon but did have marked distension of her bowel on X Ray was seen by surgery and they feel should keep npo at this time, will hydrate and re asses in am Review of Systems Review of Systems: Mild distress and fatigue no headache, blurry or double vision no speech or swallowing issues no chest pain, pressure or palpitations no shortness of breath, cough or wheezes She still has abdominal pain, no nausea or vomiting very little stool production no dysuria, hematuria or frequency no focal joint pain or swelling no back pain, CVA tenderness or radicular pain no bruising, bleeding or rashes no focal signs of weakness or numbness or altered sensation no complaints of anxiety or depression, pt does have dementia. Physical Exam Physical Exam: The patient appeared thin but consistent with her stated age Vital signs as documented. Head exam is normocephalic atraumatic no scleral icterus Neck is without JVD, thyromegaly, or carotid bruits. Lungs are clear to auscultation, no focal loss of breath sounds Cardiac exam, Rhythm is regular.. No murmurs, rubs or gallops. Abdominal exam reveals normal bowel sounds, soft distended & tympanitic continues with worsening tenderness to examination rectal exam with good tone, large ball of soft stool in rectum manually removed Extremities are nonedematous and both pedal pulses are present Neurologic exam is alert and oriented x2, no focal loss of strength or sensation Skin is without bruises or rashes Psychologically is with concerned for dementia Results & Data Results & Data ([facility]) Vital Signs (Past 12 Hours) Vital Signs Temp Pulse Pulse Resp BP Pulse Ox 03/12/20 18:38 87 03/12/20 15:00 99.1 F 82 16 101/53 L 90 03/12/20 12:50 98.8 F 82 18 138/69 98 03/12/20 08:00 82 PG Care Time/CCT Total # of Minutes Spent Total Time Spent with Patient: Total time spent is greater than 50% in coordination of care (as documented) at patient's floor/unit and/or counseling patient: Coding Level of Care Code 99858 Subseq Hosp Care Lvl 3 Diagnoses Abdominal pain R10.9 Confusion R41.0 COPD (chronic obstructive pulmonary disease) J44.9 COPD type: unspecified COPD Dementia G30.9; F02.80 Dementia type: Alzheimer's disease Alzheimer's disease onset: unspecified onset Dementia behavioral disturbance: without behavioral disturbance Depression F32.9 Depression Type: major depressive disorder Major depression recurrence: unspecified whether recurrent Active/Remission status: remission status unspecified Hypothyroid E03.9 Hypothyroidism type: unspecified Migraine G43.909 Migraine type: unspecified Status migrainosus presence: without status migrainosus Intractability: not intractable (1) COPD (chronic obstructive pulmonary disease) COPD type: unspecified COPD Qualified Code(s): J44.9 - Chronic obstructive pulmonary disease, unspecified (2) Dementia Dementia type: Alzheimer's disease Alzheimer's disease onset: unspecified onset Dementia behavioral disturbance: without behavioral disturbance Qualified Code(s): G30.9 - Alzheimer's disease, unspecified; F02.80 - Dementia in other diseases classified elsewhere without behavioral disturbance (3) Depression Depression Type: major depressive disorder Major depression recurrence: unspecified whether recurrent Active/Remission status: remission status unspecified Qualified Code(s): F32.9 - Major depressive disorder, single episode, unspecified (4) Hypothyroid Hypothyroidism type: unspecified Qualified Code(s): E03.9 - Hypothyroidism, unspecified (5) Migraine Migraine type: unspecified Status migrainosus presence: without status migrainosus Intractability: not intractable Qualified Code(s): G43.909 - Migraine, unspecified, not intractable, without status migrainosus
[2020-03-12] MEDS: FLUTICASONE/VILANTEROL 100/25MCG 14 PUFFS/INHALER INH SCH (20:02)
[2020-03-12] MEDS: ACETAMINOPHEN 500 MG TAB PO SCH (20:03)
[2020-03-12] MEDS: PIPERACILLIN/TAZOBACTAM 3.375 GM in DEXTROSE 5% 100 ML IV SCH (20:07)
[2020-03-13] MEDS: AZELASTINE ~ ORDER AWAITING ACTION SCH ×3 (00:13→15:06)
[2020-03-13] MEDS: LACTATED RINGER'S 1,000 ML IV SCH ×3 (02:36→20:48)
[2020-03-13] MEDS: PIPERACILLIN/TAZOBACTAM 3.375 GM in DEXTROSE 5% 100 ML IV SCH ×3 (05:01→20:47)
[2020-03-13] MEDS: metroNIDAZOLE 500 MG/100 ML BAG IV SCH ×3 (06:17→22:40)
[2020-03-13 06:35] LABS: Hematocrit (blood only) 34.1 % (37-47); Hemoglobin 11.1 g/dL (12.0-16.0); Mean Corpuscular Hemoglobin 29.3 pg (25-34); Mean Corpuscular Hgb Conc 32.6 g/dL (32-36); Mean Platelet Volume 9.7 fL (7.4-10.4); Platelet Count 301 K/uL (130-400); RDW Coefficient of Variation 15.3 % (11.5-14.5); RDW Standard Deviation 50.5 fL (36.4-46.3); Red Blood Count 3.79 M/uL (4.2-5.4)
[2020-03-13 07:19] LABS: Calcium 8.2 mg/dl (8.5-10.1); Magnesium 2.2 mg/dl (1.8-2.4); Potassium 3.3 mmol/L (3.5-5.1)
[2020-03-13 07:32] LABS: Phosphorus 1.2 mg/dl (2.5-4.9)
[2020-03-13] MEDS: TOBRAMYCIN SULFATE 300 MG in SYRINGE 0 ML INH SCH (07:43)
[2020-03-13] MEDS ORDERED: POTASSIUM PHOS 3 MMOL/1 ML INFUSION IV STA (07:54)
[2020-03-13] MEDS ORDERED: POTASSIUM PHOSPHATE 24 MMOL in SODIUM CHLORIDE 0.9% 500 ML IV ONE (08:45)
[2020-03-13] MEDS: SERTRALINE HCL 100 MG TABLET PO SCH (09:00)
[2020-03-13] MEDS: ASPIRIN 81 MG ECTAB PO SCH (09:00)
[2020-03-13] MEDS: buPROPion XL 150 MG TABCR PO SCH (09:01)
[2020-03-13] MEDS: DOCUSATE SODIUM/SENNA 50/8.6MG TAB PO SCH ×2 (09:01→20:49)
[2020-03-13] MEDS: POLYETHYLENE (MIRALAX) 17 GM PACK PO SCH (09:01)
[2020-03-13] MEDS: UMECLIDINIUM BROMIDE 62.5MCG/BLISTER 7 PUFFS/INHALER INH SCH (09:02)
--- NOTE | 2020-03-13 09:40 | XRay Report ---
XR abdomen min 2V CLINICAL HISTORY: eval for colonic distension COMPARISON STUDY: Abdominal series March 11, 2020 FINDINGS: Small bilateral pleural effusions with bibasilar opacities are noted. No free air is evide nt on the upright projection. Mild gaseous distention of the colon has slightly decreased since CT of March 11, 2020. Note is made of apparent thumbprinting of the distal transverse colon which suggest s colitis, as shown on prior CT. IMPRESSION: 1. No free air. 2. Mild gaseous distention of the colon, slightly decreased since prior exam. 3. Thumbprinting of the distal transverse colon which suggests colitis, as shown on prior CT. ACT 112: Negative or not required by law. Electronically signed by: Wilson Jay M.D. 03/13/2020 9:38 AM
--- NOTE | 2020-03-13 14:08 | Surgery Progress Note ---
Date of Service March 13, 2020 Assessment & Plan (1) Ischemic colitis: Subjectively improved today White count has decreased again No evidence of peritonitis Continue conservative management with no indication for surgical intervention at this time Admission and Anticipated Discharge Date Admission Date: March 08, 2020 Subjective Feels better today Less pain today Had multiple bowel movements No hematochezia Denies nausea and vomiting Physical Exam Gastrointestinal (Abdomen): Inspection/Auscultation: + abdomen distended (Less distended today) Percussion/Palpation: + abdomen tender (Diffuse but decreased) and abdomen soft Results & Data ([facility]) Vital Signs (Past 12 Hours) Vital Signs Temp Pulse Pulse Resp BP Pulse Ox 03/13/20 11:50 36.9 C 111 H 20 157/82 H 91 03/13/20 07:45 104 H 20 99 03/13/20 07:44 36.4 C L 110 H 20 138/80 98 03/13/20 07:35 115 H 03/13/20 03:41 36.8 C 105 H 20 157/76 H 93 Laboratory Results 03/13/20 03/13/20 Range/Units 06:11 06:11 WBC 20.30 H (4.8-10.8) K/uL RBC 3.79 L (4.2-5.4) M/uL Hgb 11.1 L (12.0-16.0) g/dL Hct 34.1 L (37-47) % MCV 90.0 (80-100) fL MCH 29.3 (25-34) pg MCHC 32.6 (32-36) g/dL RDW Std Deviation 50.5 H (36.4-46.3) fL RDW Coeff of Wilver 15.3 H (11.5-14.5) % Plt Count 301 (130-400) K/uL MPV 9.7 (7.4-10.4) fL Sodium 140 (136-145) mmol/L Potassium 3.3 L (3.5-5.1) mmol/L Chloride 104 (98-107) mmol/L Carbon Dioxide 30 (21-32) mmol/L Anion Gap 6.0 (3-11) BUN 21 H (7-18) mg/dl Creatinine 0.82 D (0.6-1.2) mg/dl Est Cr Clr Drug Dosing 48.0 ml/min Est GFR ( Amer) 80.0 Est GFR (Non-Af Amer) 69.0 BUN/Creatinine Ratio 26.0 H (10-20) Glucose 141 H (70-99) mg/dl Calcium 8.2 L (8.5-10.1) mg/dl Phosphorus 1.2 L* (2.5-4.9) mg/dl Magnesium 2.2 (1.8-2.4) mg/dl Triglycerides 110 (0-150) mg/dl
--- NOTE | 2020-03-13 15:46 | Hospitalist Progress Note ---
Date of Service March 13, 2020 Assessment & Plan (1) Abdominal pain: Abdominal pain with slow and steady improvement. Also some radiological improvement. Did change to zosyn and metronidazole. White count is come down to 20,000 still with diarrhea has had no bleeding Hypophosphatemia seen concern for refeeding syndrome if using parenteral nutrition will augment her phosphorus and if continues to improve over next 24 hours likely reinstitute her diet Jean catheter replaced to track urine output, fluid bolus was given with concern for possible early sepsis although not confirmed (2) Confusion: Confusion continues to improve could be metabolic encephalopathy secondary to colitis which is being treated with antibiotics currently. Stroke is been ruled out and TIA is less likely now given the fact that the patient has had most likely colitis on admission CTA neck 03/07/20 IMPRESSION: 1. No evidence of hemodynamically significant carotid stenosis 2. Hemodynamically significant 80% diameter narrowing in the right vertebral artery origin 3. Non hemodynamically significant 25% diameter narrowing the proximal right internal carotid artery. 4. 50% diameter narrowing of the left vertebral at the C5 level, and 50% diameter narrowing of the right vertebral the C2 level. 5. Upper lobe bronchiectasis mucous plugging and presumed area of pleural- parenchymal scarring MRI brain 03/08/20 IMPRESSION: 1. No acute intracranial findings 2. No evidence of acute or subacute infarction 3. No evidence of intracranial mass 4. Foci of increased T2 signal within the white matter likely on a small vessel basis. HEAD CTA 03/07/20 IMPRESSION: 1. 75% diameter narrowing of the anterior cerebral artery (A2 segment) 2. 50% diameter stenosis of the right vertebral artery at the C2 level. lipids tc 225, ldl 138 and A1C 5.7 -PT/OT evaluation appreciated, 6 clicks score of 20 -Neuro Consultation appreciated -ASA 81mg po q daily (3) COPD (chronic obstructive pulmonary disease): continues to be stable . Adequate oxygenation on 2L NC. Patient with reported bronchiectasis - Continue inhaled Tobramycin Denies worsening cough or sputum at present -Continue Fluticasone/Vilanterol, Umeclidinium, Albuterol PRN (4) Dementia: Patient doing well. Mildly confused at times but overall can answer questions and follow commands, oriented x 2 . adry updated -Delirium prevention strategies (5) Depression: Chronic Bupropion 150mg po qAM, Sertraline 100mg po daily -Clonazepam 0.5mg po qHS has been held in the face of her confusion (6) Hypothyroid: Chronic tsh mildly elevated will not make changes but will recommned recheck -Continue Synthroid (7) Migraine: Currently without headache continues without such -did stop verapamil for its association with constipation Code - Full Admission and Anticipated Discharge Date Admission Date: March 08, 2020 Subjective Feels better today, multiple bowel movements. she seems a bit depressed today No hematochezia, Denies nausea and vomiting Review of Systems Review of Systems: Mild distress and fatigue no headache, blurry or double vision no speech or swallowing issues no chest pain, pressure or palpitations no shortness of breath, cough or wheezes She still has abdominal pain but much improved, no nausea or vomiting finally bowel movements no dysuria, hematuria or frequency no focal joint pain or swelling no back pain, CVA tenderness or radicular pain no bruising, bleeding or rashes no focal signs of weakness or numbness or altered sensation complaints of depression, pt does have dementia. Physical Exam Physical Exam: The patient appeared thin but consistent with her stated age Vital signs as documented. Head exam is normocephalic atraumatic no scleral icterus Neck is without JVD, thyromegaly, or carotid bruits. Lungs are clear to auscultation, no focal loss of breath sounds Cardiac exam, Rhythm is regular.. No murmurs, rubs or gallops. Abdominal exam reveals normal bowel sounds, soft distended & tympanitic continues with worsening tenderness to examination rectal exam with good tone, large ball of soft stool in rectum manually removed Extremities are nonedematous and both pedal pulses are present Neurologic exam is alert and oriented x2, no focal loss of strength or sensation Skin is without bruises or rashes Psychologically is with concerned for dementia Results & Data Results & Data ([facility]) Vital Signs (Past 12 Hours) Vital Signs Temp Pulse Pulse Resp BP Pulse Ox 03/13/20 15:13 99.0 F 113 H 20 144/76 H 95 03/13/20 11:50 98.4 F 111 H 20 157/82 H 91 03/13/20 07:45 104 H 20 99 03/13/20 07:44 97.5 F L 110 H 20 138/80 98 03/13/20 07:35 115 H PG Care Time/CCT Total # of Minutes Spent Total Time Spent with Patient: Total time spent is greater than 50% in coordination of care (as documented) at patient's floor/unit and/or counseling patient: Coding Level of Care Code 31479 Subseq Hosp Care Lvl 2 Diagnoses Abdominal pain R10.9 Confusion R41.0 COPD (chronic obstructive pulmonary disease) J44.9 COPD type: unspecified COPD Dementia G30.9; F02.80 Dementia type: Alzheimer's disease Alzheimer's disease onset: unspecified onset Dementia behavioral disturbance: without behavioral disturbance Depression F32.9 Depression Type: major depressive disorder Major depression recurrence: unspecified whether recurrent Active/Remission status: remission status unspecified Hypothyroid E03.9 Hypothyroidism type: unspecified Migraine G43.909 Migraine type: unspecified Status migrainosus presence: without status migrainosus Intractability: not intractable (1) COPD (chronic obstructive pulmonary disease) COPD type: unspecified COPD Qualified Code(s): J44.9 - Chronic obstructive pulmonary disease, unspecified (2) Dementia Dementia type: Alzheimer's disease Alzheimer's disease onset: unspecified onset Dementia behavioral disturbance: without behavioral disturbance Qualified Code(s): G30.9 - Alzheimer's disease, unspecified; F02.80 - Dementia in other diseases classified elsewhere without behavioral disturbance (3) Depression Depression Type: major depressive disorder Major depression recurrence: unspecified whether recurrent Active/Remission status: remission status unspecified Qualified Code(s): F32.9 - Major depressive disorder, single episode, unspecified (4) Hypothyroid Hypothyroidism type: unspecified Qualified Code(s): E03.9 - Hypothyroidism, unspecified (5) Migraine Migraine type: unspecified Status migrainosus presence: without status migrainosus Intractability: not intractable Qualified Code(s): G43.909 - Migraine, unspecified, not intractable, without status migrainosus
[2020-03-13] MEDS: ACETAMINOPHEN 500 MG TAB PO SCH (20:48)
[2020-03-13] MEDS: clonazePAM 0.5 MG TAB PO SCH (20:48)
[2020-03-13] MEDS: FLUTICASONE/VILANTEROL 100/25MCG 14 PUFFS/INHALER INH SCH (20:48)
[2020-03-14] MEDS: AZELASTINE ~ ORDER AWAITING ACTION SCH ×3 (00:03→16:54)
[2020-03-14] MEDS: LACTATED RINGER'S 1,000 ML IV SCH ×3 (05:08→22:35)
[2020-03-14] MEDS: PIPERACILLIN/TAZOBACTAM 3.375 GM in DEXTROSE 5% 100 ML IV SCH ×3 (05:12→20:35)
[2020-03-14] MEDS: metroNIDAZOLE 500 MG/100 ML BAG IV SCH ×3 (06:52→22:35)
[2020-03-14] MEDS ORDERED: INFLUENZA ADMINISTRATION CHARGE ONE (08:00)
[2020-03-14] MEDS ORDERED: INFLUENZA VACCINE HIGH DOSE 65+ 0.5 ML SYR IM ONE (08:00)
[2020-03-14 08:21] LABS: BUN Creatinine Ratio 16.1 (10-20); Calcium 8.3 mg/dl (8.5-10.1); Creatinine Clr Calc Pharmacy 52.9 ml/min; Est GFR (African American) 90.6; Est GFR (Non-African American) 78.1; Potassium 3.3 mmol/L (3.5-5.1)
[2020-03-14] MEDS: UMECLIDINIUM BROMIDE 62.5MCG/BLISTER 7 PUFFS/INHALER INH SCH (09:22)
[2020-03-14] MEDS: POLYETHYLENE (MIRALAX) 17 GM PACK PO SCH (09:23)
[2020-03-14] MEDS: ASPIRIN 81 MG ECTAB PO SCH (09:23)
[2020-03-14] MEDS: DOCUSATE SODIUM/SENNA 50/8.6MG TAB PO SCH ×2 (09:23→20:36)
[2020-03-14] MEDS: buPROPion XL 150 MG TABCR PO SCH (09:23)
[2020-03-14] MEDS: SERTRALINE HCL 100 MG TABLET PO SCH (09:23)
[2020-03-14] MEDS ORDERED: POTASSIUM PHOS 3 MMOL/1 ML INFUSION IV STA (11:29)
[2020-03-14] MEDS ORDERED: POTASSIUM PHOSPHATE 21 MMOL in SODIUM CHLORIDE 0.9% 500 ML IV ONE (12:00)
--- NOTE | 2020-03-14 13:33 | Hospitalist Progress Note ---
Date of Service March 14, 2020 Assessment & Plan (1) Abdominal pain: Abdominal pain with slow and steady improvement. Also some radiological improvement. Did change to zosyn and metronidazole this point consultants recommendation. White count is come down patient's had bowel production and improved examination Hypophosphatemia seen concern for refeeding syndrome if using parenteral nutrition will augment her phosphorus again on 03/14 Jean catheter replaced to track urine output, fluid bolus was given with concern for possible early sepsis although not confirmed (2) Confusion: Initial admission was for stroke rule out has been no evidence of any stroke seen on the below listed evaluation confusion continues to improve could be metabolic encephalopathy secondary to colitis which is being treated with antibiotics currently. Stroke is been ruled out and TIA is less likely now given the fact that the patient has had most likely colitis on admission CTA neck 03/07/20 IMPRESSION: 1. No evidence of hemodynamically significant carotid stenosis 2. Hemodynamically significant 80% diameter narrowing in the right vertebral artery origin 3. Non hemodynamically significant 25% diameter narrowing the proximal right internal carotid artery. 4. 50% diameter narrowing of the left vertebral at the C5 level, and 50% diameter narrowing of the right vertebral the C2 level. 5. Upper lobe bronchiectasis mucous plugging and presumed area of pleural- parenchymal scarring MRI brain 03/08/20 IMPRESSION: 1. No acute intracranial findings 2. No evidence of acute or subacute infarction 3. No evidence of intracranial mass 4. Foci of increased T2 signal within the white matter likely on a small vessel basis. HEAD CTA 03/07/20 IMPRESSION: 1. 75% diameter narrowing of the anterior cerebral artery (A2 segment) 2. 50% diameter stenosis of the right vertebral artery at the C2 level. lipids tc 225, ldl 138 and A1C 5.7 -PT/OT evaluation appreciated, 6 clicks score of 20, recommend rehab after discharge and [facility] is their first choice -Neuro Consultation appreciated -ASA 81mg po q daily (3) COPD (chronic obstructive pulmonary disease): continues to be stable . Adequate oxygenation on 2L NC. Patient with reported bronchiectasis - Continue inhaled Tobramycin Denies worsening cough or sputum at present -Continue Fluticasone/Vilanterol, Umeclidinium, Albuterol PRN (4) Dementia: Patient doing well. Mildly confused at times but overall can answer questions and follow commands, oriented x 2 . adry updated -Delirium prevention strategies (5) Depression: Chronic Bupropion 150mg po qAM, Sertraline 100mg po daily -Clonazepam 0.5mg po qHS has been held in the face of her confusion however family demanded to be restarted it was restarted the evening of 03/13 (6) Hypothyroid: Chronic tsh mildly elevated will not make changes but will recommned recheck -Continue Synthroid (7) Migraine: Currently without headache continues without such -did stop verapamil for its association with constipationno recurrence of headache Code - Full Admission and Anticipated Discharge Date Admission Date: March 08, 2020 Subjective Feels better today, multiple bowel movements. Patient has been resolved with nocturnal clonazepam No hematochezia, Denies nausea and vomiting tolerating initiation of diet Review of Systems Review of Systems: Mild distress and fatigue no headache, blurry or double vision no speech or swallowing issues no chest pain, pressure or palpitations no shortness of breath, cough or wheezes She still has abdominal pain but much improved, no nausea or vomiting finally bowel movements no dysuria, hematuria or frequency no focal joint pain or swelling no back pain, CVA tenderness or radicular pain no bruising, bleeding or rashes no focal signs of weakness or numbness or altered sensation complaints of depression, pt does have dementia. Physical Exam Physical Exam: The patient appeared thin but consistent with her stated age Vital signs as documented. Head exam is normocephalic atraumatic no scleral icterus Neck is without JVD, thyromegaly, or carotid bruits. Lungs are clear to auscultation, no focal loss of breath sounds Cardiac exam, Rhythm is regular.. No murmurs, rubs or gallops. Abdominal exam reveals normal bowel sounds, soft distended & tympanitic continues with worsening tenderness to examination rectal exam with good tone, large ball of soft stool in rectum manually removed Extremities are nonedematous and both pedal pulses are present Neurologic exam is alert and oriented x2, no focal loss of strength or sensation Skin is without bruises or rashes Psychologically is with concerned for dementia Results & Data Results & Data ([facility]) Vital Signs (Past 12 Hours) Vital Signs Temp Pulse Resp BP Pulse Ox 03/14/20 07:40 98.8 F 106 H 20 129/78 90 03/14/20 03:55 97.9 F 96 H 20 134/74 96 PG Care Time/CCT Total # of Minutes Spent Total Time Spent with Patient: Total time spent is greater than 50% in coordination of care (as documented) at patient's floor/unit and/or counseling patient: Coding Level of Care Code 50280 Subseq Hosp Care Lvl 3 Diagnoses Abdominal pain R10.9 Confusion R41.0 COPD (chronic obstructive pulmonary disease) J44.9 COPD type: unspecified COPD Dementia G30.9; F02.80 Dementia type: Alzheimer's disease Alzheimer's disease onset: unspecified onset Dementia behavioral disturbance: without behavioral disturbance Depression F32.9 Depression Type: major depressive disorder Major depression recurrence: unspecified whether recurrent Active/Remission status: remission status unspecified Hypothyroid E03.9 Hypothyroidism type: unspecified Migraine G43.909 Migraine type: unspecified Status migrainosus presence: without status migrainosus Intractability: not intractable (1) COPD (chronic obstructive pulmonary disease) COPD type: unspecified COPD Qualified Code(s): J44.9 - Chronic obstructive pulmonary disease, unspecified (2) Dementia Dementia type: Alzheimer's disease Alzheimer's disease onset: unspecified onset Dementia behavioral disturbance: without behavioral disturbance Qualified Code(s): G30.9 - Alzheimer's disease, unspecified; F02.80 - Dementia in other diseases classified elsewhere without behavioral disturbance (3) Depression Depression Type: major depressive disorder Major depression recurrence: unspecified whether recurrent Active/Remission status: remission status unspecified Qualified Code(s): F32.9 - Major depressive disorder, single episode, unspecified (4) Hypothyroid Hypothyroidism type: unspecified Qualified Code(s): E03.9 - Hypothyroidism, unspecified (5) Migraine Migraine type: unspecified Status migrainosus presence: without status migrainosus Intractability: not intractable Qualified Code(s): G43.909 - Migraine, unspecified, not intractable, without status migrainosus
--- NOTE | 2020-03-14 13:41 | Surgery Progress Note ---
Date of Service March 14, 2020 Assessment & Plan (1) Ischemic colitis: Improving with much less distention on exam. OK to advance diet to full liquids. Present on Admission?: Yes (2) Constipation: Admission and Anticipated Discharge Date Admission Date: March 08, 2020 Subjective Feeling better today. Much less distended. Bowels continue to function. No pain. Starting to be hungry. Physical Exam Constitutional: WD/WN, vitals as above Gastrointestinal (Abdomen): Inspection/Auscultation: + abdomen distended (much less than previous) and normal bowel sounds Percussion/Palpation: abdomen soft; abdomen nontender Results & Data ([facility]) Vital Signs (Past 12 Hours) Vital Signs Temp Pulse Resp BP Pulse Ox 03/14/20 07:40 37.1 C 106 H 20 129/78 90 03/14/20 03:55 36.6 C 96 H 20 134/74 96 Laboratory Results Abnormal lab results 03/14/20 03/14/20 Range/Units 06:55 06:55 Potassium 3.3 L (3.5-5.1) mmol/L Carbon Dioxide 34 H (21-32) mmol/L Calcium 8.3 L (8.5-10.1) mg/dl Phosphorus 1.8 L (2.5-4.9) mg/dl (1) Constipation Constipation type: unspecified constipation type Qualified Code(s): K59.00 - Constipation, unspecified
[2020-03-14] MEDS: ACETAMINOPHEN 500 MG TAB PO SCH (20:35)
[2020-03-14] MEDS: FLUTICASONE/VILANTEROL 100/25MCG 14 PUFFS/INHALER INH SCH (20:36)
[2020-03-14] MEDS: clonazePAM 0.5 MG TAB PO SCH (20:36)
[2020-03-15] MEDS: AZELASTINE ~ ORDER AWAITING ACTION SCH ×3 (00:50→17:00)
[2020-03-15] MEDS: PIPERACILLIN/TAZOBACTAM 3.375 GM in DEXTROSE 5% 100 ML IV SCH ×3 (04:51→21:40)
[2020-03-15] MEDS: LACTATED RINGER'S 1,000 ML IV SCH ×3 (04:52→20:04)
[2020-03-15] MEDS: metroNIDAZOLE 500 MG/100 ML BAG IV SCH (06:23)
[2020-03-15] MEDS: SERTRALINE HCL 100 MG TABLET PO SCH (08:35)
[2020-03-15] MEDS: buPROPion XL 150 MG TABCR PO SCH (08:35)
[2020-03-15] MEDS: ASPIRIN 81 MG ECTAB PO SCH (08:35)
[2020-03-15] MEDS: POLYETHYLENE (MIRALAX) 17 GM PACK PO SCH ×2 (08:36→13:06)
[2020-03-15] MEDS: DOCUSATE SODIUM/SENNA 50/8.6MG TAB PO SCH ×3 (08:36→20:05)
[2020-03-15] MEDS: UMECLIDINIUM BROMIDE 62.5MCG/BLISTER 7 PUFFS/INHALER INH SCH (08:36)
[2020-03-15 09:22] LABS: Creatinine Clr Calc Pharmacy 51.8 ml/min; Est GFR (African American) 92.1; Est GFR (Non-African American) 79.4
--- NOTE | 2020-03-15 14:28 | Surgery Progress Note ---
Date of Service pt is doing better, less abdominal pain, passed BM, no bloody stool no nausea, no vomiting, March 15, 2020 Assessment & Plan (1) Ischemic colitis: Improving with much less distention on exam. OK to advance diet to full liquids. 03/15/2020 2:26PM, F/U colitis, no emergent surgery indication now, doing fine, full liquid diet, continue treatment, will F/U (2) Constipation: Admission and Anticipated Discharge Date Admission Date: March 08, 2020 Supervising Physician Co-Signing Physician Notes Agree with Jannet Trevizo, PAC Abd: Distended, Tenderness at umbilical hernia and LUQ Clearly the most likely cause is Ischemic colitis with history of constipation and drop in blood pressure during hospitalization. Continue supportive care No plans for colonoscopy as it is contraindicated at this time Subjective Feeling better today. Much less distended. Bowels continue to function. No pain. Starting to be hungry. Physical Exam Constitutional: WD/WN, vitals as above Eyes: PERRL, conjunctivae normal, anicteric sclerae ENMT: external ear and nose normal, oropharynx normal Neck: trachea midline, no thyromegaly Respiratory: normal respiratory effort, lungs clear to auscultation Cardiovascular: RRR, no murmur, no edema Gastrointestinal (Abdomen): normal bowel sounds, soft, nontender, no hepatosplenomegaly Neurologic: awake Psychiatric: Orientation: alert and oriented x 3 Results & Data ([facility]) Vital Signs (Past 12 Hours) Vital Signs Temp Pulse Pulse Resp BP BP Pulse Ox 03/15/20 13:25 112 H 24 88 L 03/15/20 11:32 36.9 C 98 H 18 151/82 H 94 03/15/20 07:53 36.8 C 91 H 16 152/74 H 97 03/15/20 07:18 91 H 03/15/20 03:38 36.9 C 97 H 20 151/84 H 95 (1) Constipation Constipation type: unspecified constipation type Qualified Code(s): K59.00 - Constipation, unspecified
--- NOTE | 2020-03-15 14:30 | XRay Report ---
XR KUB/Abdomen 1 view CLINICAL HISTORY: distension, more pain COMPARISON STUDY: 03/13/2020 FINDINGS: The study is performed in a portable supine fashion. There is progressive gaseous distentio n of the colon. Due to bowel overlap, it is difficult to measure individual loops. There are small bi lateral pleural effusions. There are coarse bilateral pulmonary opacities IMPRESSION: 1. Slight progression in the gaseous distention of the colon. ACT 112: Negative or not required by law. Electronically signed by: Alessandro Barron M.D. 03/15/2020 2:29 PM
--- NOTE | 2020-03-15 18:36 | Hospitalist Progress Note ---
Date of Service March 15, 2020 Assessment & Plan (1) Ischemic colitis: working diagnosis for her acute abdominal pain CT scan showed dilated colon as well as colitis, KUB today with persistent distension of colon tolerating liquid diet with large volume diarrhea this morning, will check C diff just to ensure it is not missed check CBC in the morning lactic acid today normal at 1.4 GI following, appreciate their input (2) Abdominal pain: due to colitis continue Zosyn, stop Flagyl check for C diff was improving yesterday, now with more pain nothing ominous on KUB today, continues to show colon distension (3) Confusion: Initial admission was for stroke rule out has been no evidence of any stroke seen on the below listed evaluation confusion is markedly improved per patient's son, it has steadily improved over past three days CTA neck 03/07/20 IMPRESSION: 1. No evidence of hemodynamically significant carotid stenosis 2. Hemodynamically significant 80% diameter narrowing in the right vertebral artery origin 3. Non hemodynamically significant 25% diameter narrowing the proximal right internal carotid artery. 4. 50% diameter narrowing of the left vertebral at the C5 level, and 50% diam eter narrowing of the right vertebral the C2 level. 5. Upper lobe bronchiectasis mucous plugging and presumed area of pleural- parenchymal scarring MRI brain 03/08/20 IMPRESSION: 1. No acute intracranial findings 2. No evidence of acute or subacute infarction 3. No evidence of intracranial mass 4. Foci of increased T2 signal within the white matter likely on a small vessel basis. HEAD CTA 03/07/20 IMPRESSION: 1. 75% diameter narrowing of the anterior cerebral artery (A2 segment) 2. 50% diameter stenosis of the right vertebral artery at the C2 level. lipids tc 225, ldl 138 and A1C 5.7 -PT/OT evaluation appreciated, 6 clicks score of 20, recommend rehab after discharge and [facility] is their first choice -Neuro Consultation appreciated -ASA 81mg po q daily (4) COPD (chronic obstructive pulmonary disease): continues to be stable . Adequate oxygenation on 2L NC. Patient with reported bronchiectasis - Continue inhaled Tobramycin Denies worsening cough or sputum at present -Continue Fluticasone/Vilanterol, Umeclidinium, Albuterol PRN (5) Dementia: Patient doing well. Mildly confused at times but overall can answer questions and follow commands, oriented x 2 -Delirium prevention strategies (6) Depression: Chronic Bupropion 150mg po qAM, Sertraline 100mg po daily -Clonazepam 0.5mg po qHS resumed, sleeping better and mood is stable (7) Hypothyroid: Chronic tsh mildly elevated will not make changes but will recommned recheck -Continue Synthroid (8) Migraine: Currently without headache continues without such -did stop verapamil for its association with constipationno recurrence of headache Code - Full Admission and Anticipated Discharge Date Admission Date: March 08, 2020 Subjective patient tolerating her full liquid diet but she says she has more abdominal pain today she had a large loose BM KUB today with mild increase in distension of colon, difficult to assess with overlaying bowel gas reviewed chart, initially had severe constipation with pain then finally moved her bowels, no with loose stools working diagnosis is ischemic colitis, had elevated WBC appreciate GI consultation and notes, continue full liquid diet C diff was suspected several days ago but she would not move her bowels so it was cancelled, will re-order now with colitis and diarrhea spoke with patient's son over the phone, provided him with update he has concerns that the Verapamil his mother takes for migraine prophylaxis is causing her constipation Review of Systems Review of Systems: All systems reviewed & are unremarkable except as noted in Subjective Constitutional: + fatigue and + weakness; no fever Respiratory: no cough and no dyspnea Cardiovascular: no chest pain and no edema Gastrointestinal: + abdominal pain, + early satiety and + diarrhea/loose stools; no nausea, no vomiting and no constipation Physical Exam Constitutional: WD/WN, vitals as above no acute distress ENMT: external ear and nose normal, oropharynx normal Neck: trachea midline, no thyromegaly Respiratory: normal respiratory effort, lungs clear to auscultation Cardiovascular: RRR, no murmur, no edema Gastrointestinal (Abdomen): Inspection/Auscultation: + abdomen distended and normal bowel sounds Percussion/Palpation: + abdomen tender, abdomen soft and + tympanic to percussion; no guarding, abdomen not rigid and no ascites Musculoskeletal: no cyanosis or clubbing, extremities motor strength 5/5 Skin: no rashes, warm and dry Neurologic: patellar DTR's 2+ bilat, sensation intact and PERRL, EOMI, accommodation nl, no face palsy, no dysarthria Psychiatric: A+Ox3, euthymic affect Lymphatic: no cervical or axillary lymphadenopathy Results & Data Results & Data ([facility]) Vital Signs (Past 12 Hours) Vital Signs Temp Pulse Pulse Resp BP Pulse Ox 03/15/20 16:15 36.9 C 105 H 18 165/85 H 99 03/15/20 15:29 106 H 03/15/20 13:25 112 H 24 88 L 03/15/20 11:32 36.9 C 98 H 18 151/82 H 94 03/15/20 07:53 36.8 C 91 H 16 152/74 H 97 03/15/20 07:18 91 H PG Care Time/CCT Total # of Minutes Spent Total Time Spent: 35 Total Time Spent with Patient: Total time spent is greater than 50% in coordination of care (as documented) at patient's floor/unit and/or counseling patient: 15 minute conversation with patient's son over the phone Coding Level of Care Code 87905 Subseq Hosp Care Lvl 3 Diagnoses Ischemic colitis K55.9 Abdominal pain R10.9 Confusion R41.0 COPD (chronic obstructive pulmonary disease) J44.9 COPD type: unspecified COPD Dementia G30.9; F02.80 Alzheimer's disease onset: unspecified onset Dementia behavioral disturbance: without behavioral disturbance Dementia type: Alzheimer's disease Depression F32.9 Active/Remission status: remission status unspecified Depression Type: major depressive disorder Major depression recurrence: unspecified whether recurrent Hypothyroid E03.9 Hypothyroidism type: unspecified Migraine G43.909 Intractability: not intractable Migraine type: unspecified Status migrainosus presence: without status migrainosus (1) Dementia Alzheimer's disease onset: unspecified onset Dementia behavioral disturbance: without behavioral disturbance Dementia type: Alzheimer's disease Qualified Code(s): G30.9 - Alzheimer's disease, unspecified; F02.80 - Dementia in other diseases classified elsewhere without behavioral disturbance (2) Depression Active/Remission status: remission status unspecified Depression Type: major depressive disorder Major depression recurrence: unspecified whether recurrent Qualified Code(s): F32.9 - Major depressive disorder, single episode, unspecified (3) Migraine Intractability: not intractable Migraine type: unspecified Status migrainosus presence: without status migrainosus Qualified Code(s): G43.909 - Migraine, unspecified, not intractable, without status migrainosus (4) Hypothyroid Hypothyroidism type: unspecified Qualified Code(s): E03.9 - Hypothyroidism, unspecified (5) COPD (chronic obstructive pulmonary disease) COPD type: unspecified COPD Qualified Code(s): J44.9 - Chronic obstructive pulmonary disease, unspecified
[2020-03-15] MEDS: clonazePAM 0.5 MG TAB PO SCH (20:05)
[2020-03-15] MEDS: ACETAMINOPHEN 500 MG TAB PO SCH (20:05)
[2020-03-15] MEDS: FLUTICASONE/VILANTEROL 100/25MCG 14 PUFFS/INHALER INH SCH (20:06)
[2020-03-16] MEDS: AZELASTINE ~ ORDER AWAITING ACTION SCH ×3 (00:10→16:02)
[2020-03-16] MEDS: LACTATED RINGER'S 1,000 ML IV SCH (03:36)
[2020-03-16] MEDS: PIPERACILLIN/TAZOBACTAM 3.375 GM in DEXTROSE 5% 100 ML IV SCH ×3 (05:30→20:43)
[2020-03-16 08:50] LABS: Basophils # (auto) 0.01 K/uL (0-0.2); Basophils % (auto) 0.1 %; Eosinophils # (auto) 0.26 K/uL (0-0.5); Eosinophils % (auto) 1.9 %; Hematocrit (blood only) 38.6 % (37-47); Hemoglobin 11.7 g/dL (12.0-16.0); Immature Granulocytes # (auto) 0.13 K/uL (0.00-0.02); Immature Granulocytes % (auto) 0.9 %; Lymphocytes # (auto) 1.03 K/uL (1.2-3.4); Lymphocytes % (auto) 7.4 %; Mean Corpuscular Hemoglobin 27.5 pg (25-34); Mean Corpuscular Hgb Conc 30.3 g/dL (32-36); Mean Corpuscular Volume 90.8 fL (80-100); Mean Platelet Volume 9.6 fL (7.4-10.4); Monocytes # (auto) 1.06 K/uL (0.11-0.59); Monocytes % (auto) 7.6 %; Neutrophils # (auto) 11.42 K/uL (1.4-6.5); Neutrophils % (auto) 82.1 %; Platelet Count 348 K/uL (130-400); RDW Coefficient of Variation 14.7 % (11.5-14.5); RDW Standard Deviation 49.1 fL (36.4-46.3); Red Blood Count 4.25 M/uL (4.2-5.4); White Blood Count 13.91 K/uL (4.8-10.8)
[2020-03-16] MEDS: DOCUSATE SODIUM/SENNA 50/8.6MG TAB PO SCH ×2 (08:52→20:40)
[2020-03-16] MEDS: UMECLIDINIUM BROMIDE 62.5MCG/BLISTER 7 PUFFS/INHALER INH SCH (08:52)
[2020-03-16] MEDS: POLYETHYLENE (MIRALAX) 17 GM PACK PO SCH (08:53)
[2020-03-16] MEDS: SERTRALINE HCL 100 MG TABLET PO SCH (08:53)
[2020-03-16] MEDS: ASPIRIN 81 MG ECTAB PO SCH (08:53)
[2020-03-16] MEDS: buPROPion XL 150 MG TABCR PO SCH (08:53)
[2020-03-16 09:17] LABS: Albumin Globulin Ratio 0.6 (0.9-2); Albumin Level 2.1 gm/dl (3.4-5.0); BUN Creatinine Ratio 8.7 (10-20); Bilirubin,Total 0.5 mg/dl (0.2-1); Calcium 8.8 mg/dl (8.5-10.1); Creatinine Clr Calc Pharmacy 56.1 ml/min; Est GFR (African American) 90.6; Est GFR (Non-African American) 78.1; Globulin 3.7 gm/dl (2.5-4.0); Potassium 2.6 mmol/L (3.5-5.1); Total Protein 5.8 gm/dl (6.4-8.2)
--- NOTE | 2020-03-16 11:07 | Hospitalist Progress Note ---
Date of Service March 16, 2020 Assessment & Plan (1) Ischemic colitis: working diagnosis for her acute abdominal pain CT scan 03/10/20 showed dilated colon as well as colitis, KUB 03/15 with persistent distension of colon tolerating liquid diet for two days, will advance to low fiber today diarrhea again today but she is taking Miralax, C diff ordered, pending WBC down to 13k today, last level was 20k lactic acid normal at 1.4 on 03/15 GI following, appreciate their input (2) Abdominal pain: due to colitis continue Zosyn, stop Flagyl check for C diff, pending today less pain today, still bloated with distension (3) Confusion: Initial admission was for stroke rule out has been no evidence of any stroke seen on the below listed evaluation confusion is markedly improved per patient's son, it has steadily improved over past three days CTA neck 03/07/20 IMPRESSION: 1. No evidence of hemodynamically significant carotid stenosis 2. Hemodynamically significant 80% diameter narrowing in the right vertebral artery origin 3. Non hemodynamically significant 25% diameter narrowing the proximal right internal carotid artery. 4. 50% diameter narrowing of the left vertebral at the C5 level, and 50% diameter narrowing of the right vertebral the C2 level. 5. Upper lobe bronchiectasis mucous plugging and presumed area of pleural- parenchymal scarring MRI brain 03/08/20 IMPRESSION: 1. No acute intracranial findings 2. No evidence of acute or subacute infarction 3. No evidence of intracranial mass 4. Foci of increased T2 signal within the white matter likely on a small vessel basis. HEAD CTA 03/07/20 IMPRESSION: 1. 75% diameter narrowing of the anterior cerebral artery (A2 segment) 2. 50% diameter stenosis of the right vertebral artery at the C2 level. lipids tc 225, ldl 138 and A1C 5.7 -PT/OT evaluation appreciated, 6 clicks score of 20, recommend rehab after discharge and [facility] is their first choice -Neuro Consultation appreciated -ASA 81mg po q daily (4) COPD (chronic obstructive pulmonary disease): continues to be stable . Adequate oxygenation on 2L NC. Patient with reported bronchiectasis - Continue inhaled Tobramycin Denies worsening cough or sputum at present -Continue Fluticasone/Vilanterol, Umeclidinium, Albuterol PRN (5) Dementia: Patient doing well. Mildly confused at times but overall can answer questions and follow commands, oriented x 2 -Delirium prevention strategies (6) Depression: Chronic Bupropion 150mg po qAM, Sertraline 100mg po daily -Clonazepam 0.5mg po qHS resumed, sleeping better and mood is stable (7) Hypothyroid: Chronic tsh mildly elevated will not make changes but will recommned recheck -Continue Synthroid (8) Migraine: Currently without headache continues without such -did stop verapamil for its association with constipationno recurrence of headache Code - Full (9) Hypokalemia: suspect it is due to GI losses with diarrhea start 20mEq TID and give 20mEq IV x 1 now repeat in the morning Admission and Anticipated Discharge Date Admission Date: March 08, 2020 Subjective patient is feeling better today, she is smiling, sitting up in her chair had a loose BM this morning, not passing much gas despite being distended she still feels bloated, no nausea or vomiting, tolerating liquids, she is up for trying low fiber diet reviewed labs, WBC down to 13k, C diff is pending, K is low at 2.6, Cr is stable at 0.74 she is making a lot of urine via barcenas, IV fluids stopped this morning, asked RN to pull barcenas later will plan to follow up with patient and her son this afternoon Review of Systems Review of Systems: All systems reviewed & are unremarkable except as noted in Subjective Respiratory: no cough and no dyspnea Cardiovascular: no chest pain and no edema Gastrointestinal: + abdominal pain (mild discomfort), + bloating, + early satiety and + diarrhea/loose stools; no nausea, no vomiting and no constipation Physical Exam Constitutional: WD/WN, vitals as above no acute distress ENMT: external ear and nose normal, oropharynx normal Neck: trachea midline, no thyromegaly Respiratory: normal respiratory effort, lungs clear to auscultation Cardiovascular: RRR, no murmur, no edema Gastrointestinal (Abdomen): Inspection/Auscultation: + abdomen distended and normal bowel sounds Percussion/Palpation: abdomen soft and + tympanic to percussion; abdomen nontender, no guarding, abdomen not rigid and no ascites Musculoskeletal: no cyanosis or clubbing, extremities motor strength 5/5 Skin: no rashes, warm and dry Neurologic: patellar DTR's 2+ bilat, sensation intact and PERRL, EOMI, accommodation nl, no face palsy, no dysarthria Psychiatric: A+Ox3, euthymic affect Lymphatic: no cervical or axillary lymphadenopathy Results & Data Results & Data ([facility]) Vital Signs (Past 12 Hours) Vital Signs Temp Pulse Pulse Resp BP Pulse Ox 03/16/20 07:52 37 C 94 H 18 175/85 H 95 03/16/20 07:19 85 03/16/20 03:00 37.0 C 84 16 161/70 H 96 03/16/20 01:21 90 03/16/20 00:21 36.6 C 88 18 159/77 H 98 Laboratory Results Laboratory Results - last 24 hr 03/15/20 03/15/20 03/15/20 12:13 17:10 20:25 WBC RBC Hgb Hct MCV MCH MCHC RDW Std Deviation RDW Coeff of Wilver Plt Count MPV Immature Gran % (Auto) Neut % (Auto) Lymph % (Auto) [place] % (Auto) Eos % (Auto) Baso % (Auto) Neut # (Auto) Lymph # (Auto) [place] # (Auto) Eos # (Auto) Baso # (Auto) Immature Gran # (Auto) Sodium Potassium Chloride Carbon Dioxide Anion Gap BUN Creatinine Est Cr Clr Drug Dosing Est GFR ( Amer) Est GFR (Non-Af Amer) BUN/Creatinine Ratio Glucose POC Glucose 132 H 98 Lactate 1.4 Calcium Total Bilirubin AST ALT Alkaline Phosphatase Total Protein Albumin Globulin Albumin/Globulin Ratio Stl C. diff Tox B Gene 03/16/20 03/16/20 03/16/20 07:43 08:16 08:16 WBC 13.91 H RBC 4.25 Hgb 11.7 L Hct 38.6 MCV 90.8 MCH 27.5 MCHC 30.3 L RDW Std Deviation 49.1 H RDW Coeff of Wilver 14.7 H Plt Count 348 MPV 9.6 Immature Gran % (Auto) 0.9 Neut % (Auto) 82.1 Lymph % (Auto) 7.4 [place] % (Auto) 7.6 Eos % (Auto) 1.9 Baso % (Auto) 0.1 Neut # (Auto) 11.42 H Lymph # (Auto) 1.03 L [place] # (Auto) 1.06 H Eos # (Auto) 0.26 Baso # (Auto) 0.01 Immature Gran # (Auto) 0.13 H Sodium 139 Potassium 2.6 L Chloride 96 L Carbon Dioxide 39 H Anion Gap 4.0 BUN 6 L Creatinine 0.74 Est Cr Clr Drug Dosing 56.1 Est GFR ( Amer) 90.6 Est GFR (Non-Af Amer) 78.1 BUN/Creatinine Ratio 8.7 L Glucose 92 POC Glucose 87 Lactate Calcium 8.8 Total Bilirubin 0.5 AST 37 ALT 28 Alkaline Phosphatase 66 Total Protein 5.8 L Albumin 2.1 L Globulin 3.7 Albumin/Globulin Ratio 0.6 L Stl C. diff Tox B Gene 03/16/20 10:29 WBC RBC Hgb Hct MCV MCH MCHC RDW Std Deviation RDW Coeff of Wilver Plt Count MPV Immature Gran % (Auto) Neut % (Auto) Lymph % (Auto) [place] % (Auto) Eos % (Auto) Baso % (Auto) Neut # (Auto) Lymph # (Auto) [place] # (Auto) Eos # (Auto) Baso # (Auto) Immature Gran # (Auto) Sodium Potassium Chloride Carbon Dioxide Anion Gap BUN Creatinine Est Cr Clr Drug Dosing Est GFR ( Amer) Est GFR (Non-Af Amer) BUN/Creatinine Ratio Glucose POC Glucose Lactate Calcium Total Bilirubin AST ALT Alkaline Phosphatase Total Protein Albumin Globulin Albumin/Globulin Ratio Stl C. diff Tox B Gene Pending Medications Administered Current Inpatient Medications Acetaminophen (Acetaminophen 500 Mg Tab) 1,000 mg PO [facility] Stop: 04/06/20 20:59 Last Admin: 03/15/20 20:05 Dose: 1,000 mg Documented by: Albuterol (Albuterol 0.083% Nebu Soln 3 Ml Vial) 2.5 mg INH Q4H PRN PRN Reason: Shortness Of Breath Stop: 04/06/20 17:21 Last Admin: 03/15/20 13:24 Dose: 2.5 mg Documented by: Aspirin (Aspirin 81 Mg Ectab) 81 mg PO [facility] Stop: 04/07/20 08:59 Last Admin: 03/16/20 08:53 Dose: 81 mg Documented by: Bupropion HCl (Bupropion Xl 150 Mg Tabcr) [facility] [place]: 04/07/20 08:59 Last Admin: 03/16/20 08:53 Dose: 150 mg Documented by: Clonazepam (Clonazepam 0.5 Mg Tab) 0.5 mg PO HS DAWIT Stop: 04/12/20 20:59 Last Admin: 03/15/20 20:05 Dose: 0.5 mg Documented by: Fluocinonide (Fluocinonide 0.05% Cr 15 Gm Tube) 1 appln EXT BID PRN PRN Reason: dermititis Stop: 04/06/20 17:21 Fluticasone/Vilanterol (Fluticasone/Vilanterol 100/25mcg 14 Puffs/Inhaler) 1 puffs INH HS DAWIT Stop: 04/06/20 20:59 Last Admin: 03/15/20 20:06 Dose: 1 puffs Documented by: Tobramycin Sulfate 300 mg/ (Syringe) 7.5 mls @ 0.033 mls/min INH BIDR DAWIT Stop: 04/06/20 18:59 Last Admin: 03/13/20 07:43 Dose: 0.033 mls/min Documented by: Promethazine HCl 12.5 mg/ (Sodium Chloride) 50.5 mls @ 202 mls/hr IV Q6H PRN PRN Reason: Nausea And Vomiting Stop: 04/07/20 16:40 Last Infusion: 03/08/20 17:40 Dose: Infused Documented by: Piperacillin Sod/Tazobactam (Sod 3.375 gm/ Dextrose) 115 mls @ 28.75 mls/hr IV Q8H [facility]; Protocol Stop: 03/22/20 19:59 Last Infusion: 03/16/20 10:13 Dose: Infused Documented by: Potassium Chloride (K Sandoval / Wtr) 10 meq in 100 mls @ 100 mls/hr IV Q1H [facility] Stop: 03/16/20 12:59 Miscellaneous (Azelastine ~ Order Awaiting Action) 1 ea N/A QS [facility] Stop: 04/07/20 00:00 Last Admin: 03/16/20 08:53 Dose: Not Given Documented by: Miscellaneous (Levomefolate Calcium [L-Methylfolate] 7.5 Mg~ Order Awaiting Action) 1 ea N/A QS DAWIT Stop: 04/07/20 00:00 Last Admin: 03/16/20 08:53 Dose: Not Given Documented by: Miscellaneous Information (Piperacill/Tazobac Consult Active) 1 ea N/A UD PRN PRN Reason: Consult Stop: 04/11/20 14:27 Morphine Sulfate (Morphine Sulfate 2 Mg/Ml Carp) 2 mg IV Q4 PRN PRN Reason: Pain Stop: 03/22/20 15:09 Last Admin: 03/10/20 03:49 Dose: 2 mg Documented by: Ondansetron HCl (Ondansetron Inj 2 Mg/Ml 2 Ml Vial) 4 mg IV Q6H PRN PRN Reason: Nausea Stop: 04/07/20 15:09 Last Admin: 03/12/20 01:00 Dose: 4 mg Documented by: Polyethylene Glycol (Polyethylene (Miralax) 17 Gm Pack) 17 gm PO DAILY PRN PRN Reason: Constipation Stop: 04/06/20 17:21 Last Admin: 03/12/20 01:00 Dose: 17 gm Documented by: Potassium Chloride (Potassium Chloride 20 Meq Tabcr) 20 meq PO TID DAWIT Stop: 04/15/20 13:59 Senna/Docusate Sodium (Docusate Sodium/Senna 50/8.6mg Tab) 1 tab PO BID DAWIT Stop: 04/07/20 20:59 Last Admin: 03/16/20 08:52 Dose: 1 tab Documented by: Sertraline HCl (Sertraline Hcl 100 Mg Tablet) 100 mg PO DAILY DAWIT Stop: 04/07/20 08:59 Last Admin: 03/16/20 08:53 Dose: 100 mg Documented by: Simethicone (Simethicone 80 Mg Chew) 80 mg PO Q6H PRN PRN Reason: Gas or Constipation Stop: 04/15/20 10:59 Umeclidinium [place] (Umeclidinium [place] 62.5mcg/Blister 7 Puffs/Inhaler) 1 puffs INH DAILY DAWIT Stop: 04/07/20 08:59 Last Admin: 03/16/20 08:52 Dose: 1 puffs Documented by: PG Care Time/CCT Total # of Minutes Spent Total Time Spent with Patient: Total time spent is greater than 50% in coordination of care (as documented) at patient's floor/unit and/or counseling patient: Coding Level of Care Code 94643 Subseq Hosp Care Lvl 3 Diagnoses Ischemic colitis K55.9 Abdominal pain R10.9 Confusion R41.0 COPD (chronic obstructive pulmonary disease) J44.9 COPD type: unspecified COPD Dementia G30.9; F02.80 Dementia type: Alzheimer's disease Alzheimer's disease onset: unspecified onset Dementia behavioral disturbance: without behavioral disturbance Depression F32.9 Depression Type: major depressive disorder Major depression recurrence: unspecified whether recurrent Active/Remission status: remission status unspecified Hypothyroid E03.9 Hypothyroidism type: unspecified Migraine G43.909 Migraine type: unspecified Status migrainosus presence: without status migrainosus Intractability: not intractable Hypokalemia E87.6 (1) COPD (chronic obstructive pulmonary disease) COPD type: unspecified COPD Qualified Code(s): J44.9 - Chronic obstructive pulmonary disease, unspecified (2) Dementia Dementia type: Alzheimer's disease Alzheimer's disease onset: unspecified onset Dementia behavioral disturbance: without behavioral disturbance Qualified Code(s): G30.9 - Alzheimer's disease, unspecified; F02.80 - Dementia in other diseases classified elsewhere without behavioral disturbance (3) Depression Depression Type: major depressive disorder Major depression recurrence: unspecified whether recurrent Active/Remission status: remission status unspecified Qualified Code(s): F32.9 - Major depressive disorder, single episode, unspecified (4) Hypothyroid Hypothyroidism type: unspecified Qualified Code(s): E03.9 - Hypothyroidism, unspecified (5) Migraine Migraine type: unspecified Status migrainosus presence: without status migrainosus Intractability: not intractable Qualified Code(s): G43.909 - Migraine, unspecified, not intractable, without status migrainosus
[2020-03-16] MEDS: POTASSIUM CHLORIDE / WTR 10 MEQ/100 ML PLCT IV SCH ×2 (12:01→13:30)
[2020-03-16] MEDS: SIMETHICONE 80 MG CHEW PO PRN (12:24)
[2020-03-16] MEDS: POTASSIUM CHLORIDE 20 MEQ TABCR PO SCH ×2 (13:30→20:40)
[2020-03-16] MEDS: clonazePAM 0.5 MG TAB PO SCH (20:39)
[2020-03-16] MEDS: ACETAMINOPHEN 500 MG TAB PO SCH (20:39)
[2020-03-16] MEDS: FLUTICASONE/VILANTEROL 100/25MCG 14 PUFFS/INHALER INH SCH (20:41)
[2020-03-17] MEDS: AZELASTINE ~ ORDER AWAITING ACTION SCH ×3 (00:49→15:49)
[2020-03-17] MEDS: PIPERACILLIN/TAZOBACTAM 3.375 GM in DEXTROSE 5% 100 ML IV SCH (06:12)
[2020-03-17 07:14] LABS: Creatinine Clr Calc Pharmacy 47.9 ml/min; Est GFR (African American) 77.7
[2020-03-17 09:16] LABS: Hematocrit (blood only) 34.8 % (37-47); Hemoglobin 10.8 g/dL (12.0-16.0); Mean Corpuscular Hemoglobin 28.4 pg (25-34); Mean Corpuscular Volume 91.6 fL (80-100); Mean Platelet Volume 9.9 fL (7.4-10.4); Platelet Count 414 K/uL (130-400); RDW Coefficient of Variation 14.5 % (11.5-14.5); RDW Standard Deviation 48.7 fL (36.4-46.3); White Blood Count 13.57 K/uL (4.8-10.8)
[2020-03-17] MEDS: ASPIRIN 81 MG ECTAB PO SCH (09:18)
[2020-03-17] MEDS: buPROPion XL 150 MG TABCR PO SCH (09:18)
[2020-03-17] MEDS: SERTRALINE HCL 100 MG TABLET PO SCH (09:18)
[2020-03-17] MEDS: POTASSIUM CHLORIDE 20 MEQ TABCR PO SCH ×3 (09:18→20:07)
[2020-03-17] MEDS: DOCUSATE SODIUM/SENNA 50/8.6MG TAB PO SCH ×2 (09:19→20:08)
[2020-03-17] MEDS: UMECLIDINIUM BROMIDE 62.5MCG/BLISTER 7 PUFFS/INHALER INH SCH (09:19)
[2020-03-17 10:05] LABS: BUN Creatinine Ratio 9.5 (10-20); Calcium 8.3 mg/dl (8.5-10.1); Creatinine Clr Calc Pharmacy 49.7 ml/min; Est GFR (African American) 81.2; Est GFR (Non-African American) 70.1
--- NOTE | 2020-03-17 12:07 | Hospitalist Progress Note ---
Date of Service March 17, 2020 Assessment & Plan (1) Ischemic colitis: working diagnosis for her acute abdominal pain CT scan 03/10/20 showed dilated colon as well as colitis, KUB 03/15 with persistent distension of colon tolerating liquid diet for two days, advanced to low fiber diet 03/16, doing quite well no vomiting or nausea or pain loose stools but les volume per RN, her C diff was negative WBC stable at 13k lactic acid normal at 1.4 on 03/15 GI following, appreciate their input if she tolerates diet all day today and pain is still resolved then plan for discharge to [facility] tomorrow updated CM on plan (2) Abdominal pain: due to colitis stop Zosyn, change to Cipro/Flagyl C diff negative no pain today, distended but less (3) Confusion: Initial admission was for stroke rule out has been no evidence of any stroke seen on the below listed evaluation confusion is markedly improved per patient's son, it has steadily improved over past four days, she is at her baseline CTA neck 03/07/20 IMPRESSION: 1. No evidence of hemodynamically significant carotid stenosis 2. Hemodynamically significant 80% diameter narrowing in the right vertebral artery origin 3. Non hemodynamically significant 25% diameter narrowing the proximal right internal carotid artery. 4. 50% diameter narrowing of the left vertebral at the C5 level, and 50% diameter narrowing of the right vertebral the C2 level. 5. Upper lobe bronchiectasis mucous plugging and presumed area of pleural- parenchymal scarring MRI brain 03/08/20 IMPRESSION: 1. No acute intracranial findings 2. No evidence of acute or subacute infarction 3. No evidence of intracranial mass 4. Foci of increased T2 signal within the white matter likely on a small vessel basis. HEAD CTA 03/07/20 IMPRESSION: 1. 75% diameter narrowing of the anterior cerebral artery (A2 segment) 2. 50% diameter stenosis of the right vertebral artery at the C2 level. lipids tc 225, ldl 138 and A1C 5.7 -PT/OT evaluation appreciated, 6 clicks score of 20, recommend rehab after discharge and [facility] is their first choice -Neuro Consultation appreciated -ASA 81mg po q daily (4) COPD (chronic obstructive pulmonary disease): continues to be stable . Adequate oxygenation on 2L NC. Patient with reported bronchiectasis - Continue inhaled Tobramycin Denies worsening cough or sputum at present -Continue Fluticasone/Vilanterol, Umeclidinium, Albuterol PRN (5) Dementia: Patient doing well. Mildly confused at times but overall can answer questions and follow commands, oriented x 3 today -Delirium prevention strategies (6) Depression: Chronic Bupropion 150mg po qAM, Sertraline 100mg po daily -Clonazepam 0.5mg po qHS resumed, sleeping better and mood is stable (7) Hypothyroid: Chronic tsh mildly elevated will not make changes but will recommned recheck -Continue Synthroid (8) Migraine: Currently without headache -did stop verapamil for its association with constipationno recurrence of headache Code - Full (9) Hypokalemia: suspect it is due to GI losses with diarrhea started 20mEq TID, up to 3.0 today, repeat tomorrow Admission and Anticipated Discharge Date Admission Date: March 08, 2020 Subjective patient doing great today, pleased with her breakfast, says she ate pretty well had a small loose BM this morning, per RN, it was less volume than yesterday held her Senokot and Miralax today labs reviewed, WBC 13k, K up to 3.0 discussed going to rehab tomorrow, patient agrees with that plan her abdominal pain is much better, breathing is stable will call her son to update him on plan, spoke with him on 03/16 as well Review of Systems Review of Systems: All systems reviewed & are unremarkable except as noted in Subjective Respiratory: no cough and no dyspnea Cardiovascular: no chest pain and no edema Gastrointestinal: + diarrhea/loose stools; no abdominal pain, no nausea, no vomiting and no constipation Physical Exam Constitutional: WD/WN, vitals as above no acute distress ENMT: external ear and nose normal, oropharynx normal Neck: trachea midline, no thyromegaly Respiratory: normal respiratory effort, lungs clear to auscultation Cardiovascular: RRR, no murmur, no edema Gastrointestinal (Abdomen): Inspection/Auscultation: + abdomen distended and normal bowel sounds Percussion/Palpation: abdomen soft and + tympanic to percussion; abdomen nontender, no guarding, abdomen not rigid and no ascites Musculoskeletal: no cyanosis or clubbing, extremities motor strength 5/5 Skin: no rashes, warm and dry Neurologic: patellar DTR's 2+ bilat, sensation intact and PERRL, EOMI, accommodation nl, no face palsy, no dysarthria Psychiatric: A+Ox3, euthymic affect Lymphatic: no cervical or axillary lymphadenopathy Results & Data Results & Data ([facility]) Vital Signs (Past 12 Hours) Vital Signs Temp Pulse Pulse Resp BP BP Pulse Ox 03/17/20 11:22 36.8 C 101 H 16 123/69 96 03/17/20 07:43 36.9 C 84 16 167/78 H 99 03/17/20 07:23 85 03/17/20 04:00 36.7 C 86 18 152/79 H 98 03/17/20 00:40 86 Laboratory Results Laboratory Results - last 24 hr 03/16/20 03/16/20 03/17/20 16:41 20:31 06:06 WBC RBC Hgb Hct MCV MCH MCHC RDW Std Deviation RDW Coeff of Wilver Plt Count MPV Sodium Potassium Chloride Carbon Dioxide Anion Gap BUN Creatinine 0.84 Est Cr Clr Drug Dosing 47.9 Est GFR ( Amer) 77.7 Est GFR (Non-Af Amer) 67.0 BUN/Creatinine Ratio Glucose POC Glucose 134 H 96 Calcium 03/17/20 03/17/20 03/17/20 06:10 06:10 07:58 WBC 13.57 H RBC 3.80 L Hgb 10.8 L Hct 34.8 L MCV 91.6 MCH 28.4 MCHC 31.0 L RDW Std Deviation 48.7 H RDW Coeff of Wilver 14.5 Plt Count 414 H MPV 9.9 Sodium 141 Potassium 3.0 L D Chloride 99 Carbon Dioxide 39 H Anion Gap 3.0 BUN 8 Creatinine 0.81 Est Cr Clr Drug Dosing 49.7 Est GFR ( Amer) 81.2 Est GFR (Non-Af Amer) 70.1 BUN/Creatinine Ratio 9.5 L Glucose 85 POC Glucose 99 Calcium 8.3 L 03/17/20 11:40 WBC RBC Hgb Hct MCV MCH MCHC RDW Std Deviation RDW Coeff of Wilver Plt Count MPV Sodium Potassium Chloride Carbon Dioxide Anion Gap BUN Creatinine Est Cr Clr Drug Dosing Est GFR ( Amer) Est GFR (Non-Af Amer) BUN/Creatinine Ratio Glucose POC Glucose 97 Calcium Medications Administered Current Inpatient Medications Acetaminophen (Acetaminophen 500 Mg Tab) 1,000 mg PO HS DAWIT Stop: 04/06/20 20:59 Last Admin: 03/16/20 20:39 Dose: 1,000 mg Documented by: Albuterol (Albuterol 0.083% Nebu Soln 3 Ml Vial) 2.5 mg INH Q4H PRN PRN Reason: Shortness Of Breath Stop: 04/06/20 17:21 Last Admin: 03/15/20 13:24 Dose: 2.5 mg Documented by: Aspirin (Aspirin 81 Mg Ectab) 81 mg PO QAM [facility] Stop: 04/07/20 08:59 Last Admin: 03/17/20 09:18 Dose: 81 mg Documented by: Bupropion HCl (Bupropion Xl 150 Mg Tabcr) 150 [facility] Stop: 04/07/20 08:59 Last Admin: 03/17/20 09:18 Dose: 150 mg Documented by: Ciprofloxacin (Ciprofloxacin 500 Mg Tab) 500 mg PO BID [facility] Stop: 03/27/20 20:59 Clonazepam (Clonazepam 0.5 Mg Tab) 0.5 mg PO [facility] Stop: 04/12/20 20:59 Last Admin: 03/16/20 20:39 Dose: 0.5 mg Documented by: Fluocinonide (Fluocinonide 0.05% Cr 15 Gm Tube) 1 appln EXT BID PRN PRN Reason: dermititis Stop: 04/06/20 17:21 Fluticasone/Vilanterol (Fluticasone/Vilanterol 100/25mcg 14 Puffs/Inhaler) 1 puffs INH HS [facility] Stop: 04/06/20 20:59 Last Admin: 03/16/20 20:41 Dose: 1 puffs Documented by: Tobramycin Sulfate 300 mg/ (Syringe) 7.5 mls @ 0.033 mls/min INH BIDR [facility] Stop: 04/06/20 18:59 Last Admin: 03/13/20 07:43 Dose: 0.033 mls/min Documented by: Promethazine HCl 12.5 mg/ (Sodium Chloride) 50.5 mls @ 202 mls/hr IV Q6H PRN PRN Reason: Nausea And Vomiting Stop: 04/07/20 16:40 Last Infusion: 03/08/20 17:40 Dose: Infused Documented by: Metronidazole (Metronidazole 500 Mg Tab) 500 mg PO BID [facility] Stop: 03/27/20 20:59 Miscellaneous (Azelastine ~ Order Awaiting Action) 1 ea N/A QS [facility] Stop: 04/07/20 00:00 Last Admin: 03/17/20 09:19 Dose: Not Given Documented by: Miscellaneous (Levomefolate Calcium [L-Methylfolate] 7.5 Mg~ Order Awaiting Action) 1 ea N/A QS [facility] Stop: 04/07/20 00:00 Last Admin: 03/17/20 09:19 Dose: Not Given Documented by: Morphine Sulfate (Morphine Sulfate 2 Mg/Ml Carp) 2 mg IV Q4 PRN PRN Reason: Pain Stop: 03/22/20 15:09 Last Admin: 03/10/20 03:49 Dose: 2 mg Documented by: Ondansetron HCl (Ondansetron Inj 2 Mg/Ml 2 Ml Vial) 4 mg IV Q6H PRN PRN Reason: Nausea Stop: 04/07/20 15:09 Last Admin: 03/12/20 01:00 Dose: 4 mg Documented by: Polyethylene Glycol (Polyethylene (Miralax) 17 Gm Pack) 17 gm PO DAILY PRN PRN Reason: Constipation Stop: 04/06/20 17:21 Last Admin: 03/12/20 01:00 Dose: 17 gm Documented by: Potassium Chloride (Potassium Chloride 20 Meq Tabcr) 20 meq PO TID DAWIT Stop: 04/15/20 13:59 Last Admin: 03/17/20 09:18 Dose: 20 meq Documented by: Senna/Docusate Sodium (Docusate Sodium/Senna 50/8.6mg Tab) 1 tab PO BID DAWIT Stop: 04/07/20 20:59 Last Admin: 03/17/20 09:19 Dose: Not Given Documented by: Sertraline HCl (Sertraline Hcl 100 Mg Tablet) 100 mg PO DAILY DAWIT Stop: 04/07/20 08:59 Last Admin: 03/17/20 09:18 Dose: 100 mg Documented by: Simethicone (Simethicone 80 Mg Chew) 80 mg PO Q6H PRN PRN Reason: Gas or Constipation Stop: 04/15/20 10:59 Last Admin: 03/16/20 12:24 Dose: 80 mg Documented by: Umeclidinium [place] (Umeclidinium [place] 62.5mcg/Blister 7 Puffs/Inhaler) 1 puffs INH DAILY [facility] Stop: 04/07/20 08:59 Last Admin: 03/17/20 09:19 Dose: 1 puffs Documented by: PG Care Time/CCT Total # of Minutes Spent Total Time Spent with Patient: Total time spent is greater than 50% in coordination of care (as documented) at patient's floor/unit and/or counseling patient: Coding Level of Care Code 88722 Subseq Hosp Care Lvl 2 Diagnoses Ischemic colitis K55.9 Abdominal pain R10.9 Confusion R41.0 COPD (chronic obstructive pulmonary disease) J44.9 COPD type: unspecified COPD Dementia G30.9; F02.80 Dementia type: Alzheimer's disease Alzheimer's disease onset: unspecified onset Dementia behavioral disturbance: without behavioral disturbance Depression F32.9 Depression Type: major depressive disorder Major depression recurrence: unspecified whether recurrent Active/Remission status: remission status unspecified Hypothyroid E03.9 Hypothyroidism type: unspecified Migraine G43.909 Migraine type: unspecified Status migrainosus presence: without status migrainosus Intractability: not intractable Hypokalemia E87.6 (1) COPD (chronic obstructive pulmonary disease) COPD type: unspecified COPD Qualified Code(s): J44.9 - Chronic obstructive pulmonary disease, unspecified (2) Dementia Dementia type: Alzheimer's disease Alzheimer's disease onset: unspecified onset Dementia behavioral disturbance: without behavioral disturbance Qualified Code(s): G30.9 - Alzheimer's disease, unspecified; F02.80 - Dementia in other diseases classified elsewhere without behavioral disturbance (3) Depression Depression Type: major depressive disorder Major depression recurrence: unspecified whether recurrent Active/Remission status: remission status unspecified Qualified Code(s): F32.9 - Major depressive disorder, single episode, unspecified (4) Hypothyroid Hypothyroidism type: unspecified Qualified Code(s): E03.9 - Hypothyroidism, unspecified (5) Migraine Migraine type: unspecified Status migrainosus presence: without status migrainosus Intractability: not intractable Qualified Code(s): G43.909 - Migraine, unspecified, not intractable, without status migrainosus
[2020-03-17] MEDS: SIMETHICONE 80 MG CHEW PO PRN (18:51)
[2020-03-17] MEDS: FLUTICASONE/VILANTEROL 100/25MCG 14 PUFFS/INHALER INH SCH (20:07)
[2020-03-17] MEDS: ACETAMINOPHEN 500 MG TAB PO SCH (20:08)
[2020-03-17] MEDS: metroNIDAZOLE 500 MG TAB PO SCH (20:08)
[2020-03-17] MEDS: CIPROFLOXACIN 500 MG TAB PO SCH (20:09)
[2020-03-17] MEDS: clonazePAM 0.5 MG TAB PO SCH (20:11)
[2020-03-17] MEDS: TOBRAMYCIN SULFATE 300 MG in SYRINGE 0 ML INH SCH (20:15)
[2020-03-18] MEDS: AZELASTINE ~ ORDER AWAITING ACTION SCH ×2 (00:03→08:36)
[2020-03-18] MEDS: TOBRAMYCIN SULFATE 300 MG in SYRINGE 0 ML INH SCH (07:24)
[2020-03-18] MEDS: SIMETHICONE 80 MG CHEW PO PRN (08:33)
[2020-03-18] MEDS: SERTRALINE HCL 100 MG TABLET PO SCH (08:34)
[2020-03-18] MEDS: UMECLIDINIUM BROMIDE 62.5MCG/BLISTER 7 PUFFS/INHALER INH SCH (08:34)
[2020-03-18] MEDS: buPROPion XL 150 MG TABCR PO SCH (08:35)
[2020-03-18] MEDS: DOCUSATE SODIUM/SENNA 50/8.6MG TAB PO SCH (08:35)
[2020-03-18] MEDS: ASPIRIN 81 MG ECTAB PO SCH (08:35)
[2020-03-18] MEDS: metroNIDAZOLE 500 MG TAB PO SCH (08:35)
[2020-03-18] MEDS: CIPROFLOXACIN 500 MG TAB PO SCH (08:35)
[2020-03-18] MEDS: POTASSIUM CHLORIDE 20 MEQ TABCR PO SCH (08:36)
--- NOTE | 2020-03-21 22:17 | Discharge Summary ---
Date of Service March 18, 2020 Admission HPI Per Admitting Provider Eve Chi is a 79yo C female with history of Dementia, COPD, GERD. Patient recently relocated from [place], [place] and now resides at [facility]. Son is at bedside and assists with details of the history. Patient reports that she fell out of bed today and required nursing assistance to get up. She reports her legs being weak. Also a brief episode of slurred speech and increased confusion. She states that she "can't think and talk at the same time". Per her son, she is quite well-spoken at baseline but has been having some word finding difficulties. She also reports feeling lightheaded with ambulation. Occasional cough. Patient denies fevers/chills/sweats. Denies CP/SOB/abdominal pain/nausea/vomiting/diarrhea/constipation. No concerns for COVID-19 exposure. Patient reports similar symptoms in the past where she was too weak to get up due to upper extremity weakness. Principal Diagnosis Acute colitis, ischemic vs stercoral colitis Discharge Exam Constitutional WD/WN, vitals as above no acute distress ENMT external ear and nose normal, oropharynx normal Neck trachea midline, no thyromegaly Respiratory normal respiratory effort, lungs clear to auscultation Cardiovascular RRR, no murmur, no edema Gastrointestinal (Abdomen) Inspection/Auscultation: + abdomen distended and normal bowel sounds Percussion/Palpation: abdomen soft and + tympanic to percussion; abdomen nontender, no guarding, abdomen not rigid and no ascites Musculoskeletal no cyanosis or clubbing, extremities motor strength 5/5 Skin no rashes, warm and dry Neurologic patellar DTR's 2+ bilat, sensation intact and PERRL, EOMI, accommodation nl, no face palsy, no dysarthria Psychiatric A+Ox3, euthymic affect Lymphatic no cervical or axillary lymphadenopathy Discharge Data Allergies Allergy/AdvReac Type Severity Reaction Status Date / Time dichloralphenazone AdvReac Severe angina and Unverified 03/07/20 14:35 [From Midrin] hypertension isometheptene [From Midrin] AdvReac Severe angina and Unverified 03/07/20 14:35 hypertension verapamil AdvReac Severe angina and Unverified 03/07/20 14:35 hypertension erythromycin base AdvReac Unknown Unknown Unverified 03/07/20 14:35 Consultations 03/07/20 14:52 ED Decision to Admit Stat 03/07/20 17:22 Consult Neurology Routine 03/11/20 12:17 Consult Gastroenterology Routine 03/12/20 12:41 Consult General Surgery Routine Ordered Studies 03/07/20 12:45 CT angio head w con Stat CT angio neck with con Stat CT head/brain wo con Stat 03/08/20 15:10 CT abd pelvis oral con only Routine 03/08/20 17:22 MR brain seizure wo/w con Routine 03/10/20 16:14 CT abd pelvis wo con Stat Hospital Course (1) Ischemic colitis: working diagnosis for her acute abdominal pain CT scan 03/10/20 showed dilated colon as well as colitis, KUB 03/15 with persistent distension of colon tolerating liquid diet for two days, advanced to low fiber diet 03/16, doing quite well for three days no vomiting or nausea or pain loose stools but les volume per RN, her C diff was negative WBC stable at 13k lactic acid normal at 1.4 on 03/15 GI following, appreciate their input finish brief course of Cipro/Flagyl, was treated with Zosyn IV while inpatient (2) Constipation: severe constipation on admission required Miralax q6 and then she had significant bowel movements and then loose stools plan to prevent such profound constipation: stopped Verapamil for migraine prophylaxis as this can cause constipation recommend Senokot BID with full glass of water recommend Miralax every other day to help keep her regular, could increase to daily if every other day does not work (3) Abdominal pain: due to colitis stop Zosyn, change to Cipro/Flagyl C diff negative no pain for two days, distended but less (4) Confusion: Initial admission was for stroke rule out has been no evidence of any stroke seen on the below listed evaluation confusion is markedly improved per patient's son, it has steadily improved over past four days, she is at her baseline CTA neck 03/07/20 IMPRESSION: 1. No evidence of hemodynamically significant carotid stenosis 2. Hemodynamically significant 80% diameter narrowing in the right vertebral artery origin 3. Non hemodynamically significant 25% diameter narrowing the proximal right internal carotid artery. 4. 50% diameter narrowing of the left vertebral at the C5 level, and 50% diameter narrowing of the right vertebral the C2 level. 5. Upper lobe bronchiectasis mucous plugging and presumed area of pleural- parenchymal scarring MRI brain 03/08/20 IMPRESSION: 1. No acute intracranial findings 2. No evidence of acute or subacute infarction 3. No evidence of intracranial mass 4. Foci of increased T2 signal within the white matter likely on a small v essel basis. HEAD CTA 03/07/20 IMPRESSION: 1. 75% diameter narrowing of the anterior cerebral artery (A2 segment) 2. 50% diameter stenosis of the right vertebral artery at the C2 level. lipids tc 225, ldl 138 and A1C 5.7 -PT/OT evaluation appreciated, 6 clicks score of 20, recommend rehab after discharge and [facility] is their first choice -Neuro Consultation appreciated -ASA 81mg po q daily (5) COPD (chronic obstructive pulmonary disease): continues to be stable . Adequate oxygenation on 2L NC. Patient with reported bronchiectasis -Contin ue inhaled Tobramycin Denies worsening cough or sputum at present -Continue Fluticasone/Vilanterol, Umeclidinium, Albuterol PRN (6) Dementia: Patient doing well. Mildly confused at times but overall can answer questions and follow commands, oriented x 3 today -Delirium prevention strategies (7) Depression: Chronic Bupropion 150mg po qAM, Sertraline 100mg po daily -Clonazepam 0.5mg po qHS resumed, sleeping better and mood is stable (8) Hypothyroid: Chronic tsh mildly elevated will not make changes but will recommned recheck -Continue Synthroid (9) Migraine: Currently without headache -did stop verapamil for its association with constipationno recurrence of headache Code - Full (10) Hypokalemia: suspect it is due to GI losses with diarrhea started 20mEq TID, up to 3.0 today, repeat tomorrow Total Time Total Time Spent Total Time Spent (In Minutes): 33 Total Time Includes: Examination of the Patient, Discharge Planning and Medication Reconciliation Discharge Plan Discharge Items Patient Disposition: Transfer Inpatient Rehab Fac Reason For Visit: Ischemic colitis Discharge Diagnosis: Ischemic colitis Severe constipation Transient confusion, initial concerns for TIA but ruled out Condition on Discharge: Good Activity: Resume your previous activity Non-emergency contact: Primary Care Provider Call non-emergency contact if: you have any medication questions, your symptoms worsen and you have a fever Follow-up/Referrals: Светлана Benoit CRNP [Primary Care Provider] - (one week after discharge from rehab) Bull Pastor MD [Physician] - (6 weeks, constipation, colitis) Diet: Regular Addtl Attending Provider Instructions: Medications: - CIPRO and FLAGYL: take twice a day for 5 more days to treat colitis - SENOKOT: take twice a day, you NEED to take this with full 8oz glass of water - MIRALAX: take every other day to keep bowels regular, if developing constipation can increase to daily or even twice a day if needed - POTASSIUM: take 20mEq daily Constipation, colitis (either ischemic colitis or stercocolitis) improved with aggressive Miralax, she passed a lot of hard stool and then loose stools WBC down to 13k from 34k initially, no fevers she is moving her bowels less abdominal pain, less distension continue bowel regimen with Senokot and Miralax complete 5 more days of Cipro/Flagyl, she was on Zosyn for a week here in hospital Verapamil was stopped, she was taking for migraine headache prophylaxis but it can cause severe constipation no headaches during admission Confusion: possible TIA but MRI brain negative for stroke neurology recommends aspirin 81mg daily no other recommendations confusion most likely due to colitis, pain, dehydration better now for days Weakness/deconditioning will send to [facility] for rehabilitation Pending Studies at Discharge: No Stand-Alone Forms: My [facility] Skilled Items Patient informed of condition?: Yes DNR: Yes Discharge Level of Care: Acute rehab Communicable Disease: No Discharge Prognosis: Improving Lines: None Urinary Catheter: No Medications and DC Order Prescriptions: New sennosides-docusate sodium [Senokot-S] 8.6-50 mg Tablet 1 tab PO BID 30 Days Qty: 60 RF: 1 aspirin 81 mg Tablet,Delayed Release (Dr/Ec) 81 mg PO QAM 30 Days Qty: 30 RF: 0 potassium chloride [Klor-Con M20] 20 mEq Tablet,Er Particles/Crystals 20 meq PO DAILY 30 Days Qty: 30 RF: 0 polyethylene glycol 3350 [Miralax] 17 gram powder in packet 17 g PO Q2D Qty: 30 RF: 0 Continued albuterol sulfate 2.5 mg /3 mL (0.083 %) Solution For Nebulization 2.5 mg INHALATION Q4H PRN (Reason: Shortness Of Breath) RF: 0 cetirizine [Zyrtec] 10 mg Tablet 10 mg PO HS RF: 0 clonazepam 0.5 mg Tablet 0.5 mg PO HS RF: 0 acetaminophen [Tylenol Extra Strength] 500 mg Tablet 1,000 mg PO HS RF: 0 calcium carbonate [Calcium 600] 600 mg calcium (1,500 mg) Tablet 600 mg PO QDD RF: 0 ascorbic acid (vitamin C) [Vitamin C] 500 mg Tablet 500 mg PO QAM RF: 0 niacin 500 mg Tablet 500 mg PO QAM RF: 0 azelastine 137 mcg (0.1 %) Aerosol,[place] 2 spray INTRANASAL BIDM RF: 0 fluocinonide 0.05 % Cream 1 applic TOPICAL BID PRN (Reason: dermititis) RF: 0 levothyroxine 112 mcg Tablet 112 mcg PO QAM RF: 0 cholecalciferol (vitamin D3) [Vitamin D3] 25 mcg (1,000 unit) Capsule 25 mcg PO QDD RF: 0 omeprazole magnesium [Prilosec OTC] 20 mg Tablet,Delayed Release (Dr/Ec) 20 mg PO QAM RF: 0 bupropion HCl 150 mg Tablet Extended Release 24 Hr 150 mg PO QAM RF: 0 Spiriva with HandiHaler 18 mcg Capsule, W/Inhalation Device 1 cap INHALATION QAM RF: 0 levomefolate calcium [L-Methylfolate] 7.5 mg Tablet 7.5 mg PO QAM RF: 0 budesonide-formoterol [Symbicort] 160-4.5 mcg/actuation Hfa Aerosol Inhaler 2 puff INHALATION HS RF: 0 tobramycin with nebulizer 300 mg/5 mL Solution For Nebulization 300 mg INHALATION Q12H RF: 0 Biotin 900mcg 900 mcg PO QDD RF: 0 Magnesium 500mg 500 mg PO QDD RF: 0 Vitamin A 2400mcg 2,400 mcg PO QDD RF: 0 Changed sertraline 100 mg Tablet 100 mg PO DAILY Qty: 0 RF: 0 Discontinued verapamil 180 mg Tablet Extended Release 180 mg PO BIDM RF: 0 docusate sodium [Stool Softener] 100 mg Capsule 300 mg PO HS RF: 0 Discharge Orders: Discharge Order (Routine); Ordered 03/18/20 Ordered By: Hugh Wheeler Admission Data Admit Date/Time: 03/08/20 15:18 Attending Provider: Hugh Wheeler Admit Provider: Eli Gibson Primary Care Provider: Светлана Benoit Other Providers: [facility] ; Eli Gibson ; Genaro Varner ; Bull Pastor ; Iron Ross. Other Interventions: Discharge Summary Assessment (RN) Last Done: 03/18/20 12:43 Coding Level of Care Code D/C Day Management >30 mins Diagnoses Ischemic colitis K55.9 Constipation K59.00 Abdominal pain R10.9 Confusion R41.0 COPD (chronic obstructive pulmonary disease) J44.9 COPD type: unspecified COPD Dementia G30.9; F02.80 Alzheimer's disease onset: unspecified onset Dementia behavioral disturbance: without behavioral disturbance Dementia type: Alzheimer's disease Depression F32.9 Active/Remission status: remission status unspecified Depression Type: major depressive disorder Major depression recurrence: unspecified whether recurrent Hypothyroid E03.9 Hypothyroidism type: unspecified Migraine G43.909 Intractability: not intractable Migraine type: unspecified Status migrainosus presence: without status migrainosus Hypokalemia E87.6
== END 2020-03-18 13:51 | DRG 393 ==
LOC: 2W 12:03 → ED 12:03 → SUATTDRO 17:09 → 2W 17:36 → SUATTDRO 03-08 15:18

== ENCOUNTER 2020-10-10 04:15 | Inpatient (IN) ==
--- NOTE | 2020-10-10 05:06 | Emergency Department Note ---
Impression & Plan Fall, Leukocytosis ED Provider Note NAME: BOSSMAN RAY AGE: 80 SEX: F ARRIVES VIA: Ambulance INFORMANT: Patient ED PROVIDER(S): Rocio Mccann DO CHIEF COMPLAINT: Fall PLAN: Disposition: Admitted to [facility] Condition: Stable MEDICAL DECISION MAKING: This is a 80-year-old female patient who suffered a fall at the [facility]. CT scan of the head and the neck were unremarkable. Laboratory studies revealed a significant leukocytosis with a white count greater than 38,000. Patient does give a history of diarrhea. Just prior to admission, the patient did have a diarrheal bowel movement which was collected for C. difficile testing. I did discuss the case with the [facility] and they will evaluate for further management. Triage Nursing notes reviewed and agree them. Prior medical records reviewed Vital Signs: reviewed and remarkable for tachycardia Differential diagnosis: Skull fracture, facial fractures, C-spine injury, intracranial trauma, C. difficile, sepsis ER treatment provided: Normal saline bolus Normal saline drip Diagnostics interpreted by me: ECG: Normal sinus rhythm with a first-degree AV block at 98 bpm. There is T wave inversion in the anterior leads. This is a new finding in comparison to an EKG from March 2020. There is no other ectopy. Cardiac Monitoring: Sinus tachycardia at 105 Laboratory studies: See below Imaging studies: As per stat rad CT head: No acute intracranial hemorrhage Chronic periventricular ischemic demyelination changes seen due to small vessel disease. CT C-spine: No acute fracture in the cervical spine C4/5 grade 1 spondylolisthesis. There is C5/C6 and C6/C7 degenerative disc disease. Chronic pleural/subpleural fibrotic change seen in the lung apices with associated bronchiectasis. HPI: 80/F arrives for evaluation of fall. Patient explains that she fell tonight at the [facility]. She had to have a bowel movement in was having difficulty with her oxygen tubing and fell to the ground. She struck the right side of her forehead. She does not think that she lost consciousness. Patient also described having episodes of diarrhea. The patient knew that tomorrow was Mother's Day and that the year was either 2019 or 2020. ROS: See above HPI for pertinent positives & negatives. A total of 10 systems re viewed and were otherwise negative. PAST MEDICAL HISTORY:See Below PAST SURGICAL HISTORY:See Below FAMILY HISTORY:See Below SOCIAL HISTORY:See Below HOME MEDICATIONS:See list ALLERGIES:See list VITALS:See Below PHYSICAL EXAMINATION: HEENT: Head - normocephalic with a hematoma over the lateral right eyebrow. Pupils are equal, round, and reactive to light. Extraocular eye muscles are intact, and sclera are anicteric. Nose - moist nasal mucosa without discharge. Mouth - moist buccal mucosa. Oropharynx is nonerythematous and there is no tonsillar exudate or edema noted. Neck: Supple; no cervical lymphadenopathy or pain to palpation over the posterior cervical spine. Heart: Regular rate and rhythm. There is a normal S1 and S2 with no murmurs, clicks, or gallops appreciated. Lungs: Clear to auscultation bilaterally with no wheezes, rales, or rhonchi. Abdomen: Soft, completely nontender, nondistended, with good bowel sounds. There are no palpable pulsatile masses or hepatosplenomegaly. There is no guarding, rigidity, or rebound noted. Extremities: No evidence of cyanosis, clubbing, or edema. There are easily palpable peripheral pulses. Skin: warm and dry with good turgor and no rashes. ED COURSE: Times/Reassessments: 0430: The patient was evaluated in room C8. A complete history and physical was performed. Laboratory studies were drawn as above. Patient went for CT scan of the brain and cervical spine. A twelve-lead EKG was obtained. An order was placed for continuous cardiac monitoring. The patient was in a sinus tachycardia at 105. Because the patient had such significant leukocytosis, a septic protocol was performed. Covid testing was performed. I discussed the case with the [facility] hospitalist and they will evaluate for further management. Patient did have a diarrheal bowel movement. This was collected and will be sent for C. difficile as the patient does have a history of this. Rocio Mccann DO Past Med/Surg History Medical History (Updated 10/11/20 @ 04:16 by Rocio Mccann DO) Bronchiectasis Confusion COPD (chronic obstructive pulmonary disease) Dementia Depression Double vision Hypothyroid Migraine Transient cerebral ischemia Surgical History History of tonsillectomy History of tubal ligation Family History Other Family history non-contributory Social History Smoking Status: Former smoker Do You Dip or Chew Tobacco: No; Hx Alcohol Use: No Hx Substance Use: No Preferred Language: Czech Communication Ability: Effective Spool Sander Required: No Beliefs That Will Affect Care: None marital status: / Current Living Situation: Alone and Personal Care Facility Other Information That Helps Us Care for You: No Feels Safe at Home: Yes Safety Concerns: Feels Safe At This Time Assistive Devices: Glasses and Oxygen - Continuous Allergies Allergies Allergy/AdvReac Type Severity Reaction Status Date / Time dichloralphenazone AdvReac Severe angina and Unverified 10/10/20 07:55 [From Midrin] hypertension isometheptene [From Midrin] AdvReac Severe angina and Unverified 10/10/20 07:55 hypertension verapamil AdvReac Severe angina and Unverified 10/10/20 07:55 hypertension erythromycin base AdvReac Unknown Unknown Unverified 10/10/20 07:55 Home Meds Home Medications Medication Instructions Recorded Confirmed Spiriva with HandiHaler 1 cap INHALATION QAM 03/07/20 10/10/20 acetaminophen [Tylenol Extra 1,000 mg PO HS 03/07/20 10/10/20 Strength] azelastine 2 spray INTRANASAL BIDM 03/07/20 10/10/20 budesonide-formoterol [Symbicort] 2 puff INHALATION BID 03/07/20 10/10/20 clonazepam 0.5 mg PO HS 03/07/20 10/10/20 levothyroxine 112 mcg PO QAM 03/07/20 10/10/20 omeprazole magnesium [Prilosec OTC] 20 mg PO DAILYBB 03/07/20 10/10/20 aspirin [Aspir-81] 81 mg PO QAM 10/10/20 10/10/20 bupropion HCl 150 mg PO QAM 10/10/20 10/10/20 calcium carbonate [Calcium Antacid] 200 mg PO QDD 10/10/20 10/10/20 cholecalciferol (vitamin D3) 50 mcg PO QAM 10/10/20 10/10/20 magnesium oxide 400 mg PO QDD 05/09/21 05/09/21 potassium chloride 20 meq PO QAM 10/10/20 10/10/20 sertraline 100 mg PO QAM 10/10/20 10/10/20 Results & Data (ED) Vital Signs Vital Signs - 24 hr 10/10/20 04:23 10/10/20 05:30 10/10/20 05:59 Temperature 36.9 C Temperature Source Oral Pulse Rate 105 H 101 H 101 H Pulse Rate from SpO2 Sensor 101 H 101 H Respiratory Rate 16 29 H 28 H Respiratory Effort / Characteristics Non-Labored Respiratory Depth Normal Blood Pressure 105/58 L 113/57 L Blood Pressure Mean 73 75 Pulse Oximetry 98 90 90 Oxygen Delivery Method Room Air Sepsis Recent Fever Within 48 Hours No Sepsis New/Unexplained Change in Mental Status No Sepsis Action Taken by Nursing No Action Required 10/10/20 06:00 10/10/20 06:01 10/10/20 06:30 Temperature Temperature Source Pulse Rate 100 H 99 H 97 H Pulse Rate from SpO2 Sensor 99 H 99 H 97 H Respiratory Rate 26 H 25 H 25 H Respiratory Effort / Characteristics Respiratory Depth Blood Pressure 112/56 L 118/62 Blood Pressure Mean 74 80 Pulse Oximetry 95 97 100 Oxygen Delivery Method Sepsis Recent Fever Within 48 Hours Sepsis New/Unexplained Change in Mental Status Sepsis Action Taken by Nursing 10/10/20 07:00 Temperature Temperature Source Pulse Rate 98 H Pulse Rate from SpO2 Sensor 99 H Respiratory Rate 19 Respiratory Effort / Characteristics Respiratory Depth Blood Pressure 112/65 Blood Pressure Mean 80 Pulse Oximetry 100 Oxygen Delivery Method Sepsis Recent Fever Within 48 Hours Sepsis New/Unexplained Change in Mental Status Sepsis Action Taken by Nursing Laboratory Data Result diagrams: 10/10/20 04:56 10/10/20 04:56 Lab Results 10/10/20 10/10/20 10/10/20 Range/Units 04:56 04:56 05:00 WBC 38.44 H* (4.8-10.8) K/uL RBC 3.91 L (4.2-5.4) M/uL Hgb 10.8 L (12.0-16.0) g/dL Hct 34.0 L (37-47) % MCV 87.0 (80-100) fL MCH 27.6 (25-34) pg MCHC 31.8 L (32-36) g/dL RDW Std Deviation 44.4 (36.4-46.3) fL RDW Coeff of Wilver 14.1 (11.5-14.5) % Plt Count 369 (130-400) K/uL MPV 9.2 (7.4-10.4) fL Immature Gran % (Auto) 0.7 % Neut % (Auto) 89.9 % Lymph % (Auto) 1.9 % [place] % (Auto) 7.3 % Eos % (Auto) 0.1 % Baso % (Auto) 0.1 % Neut # (Auto) 34.57 H (1.4-6.5) K/uL Lymph # (Auto) 0.74 L (1.2-3.4) K/uL [place] # (Auto) 2.82 H (0.11-0.59) K/uL Eos # (Auto) 0.02 (0-0.5) K/uL Baso # (Auto) 0.03 (0-0.2) K/uL Immature Gran # (Auto) 0.26 H (0.00-0.02) K/uL RBC Morphology Unremarkable PT 10.6 (9.0-12.0) Seconds INR 1.0 (0.9-1.1) APTT 27.1 (21.0-31.0) Seconds PTT Ratio 1.0 Sodium 136 (136-145) mmol/L Potassium 4.0 (3.5-5.1) mmol/L Chloride 105 (98-107) mmol/L Carbon Dioxide 25 (21-32) mmol/L Anion Gap 6.0 (3-11) BUN 26 H (7-18) mg/dl Creatinine 1.61 H (0.6-1.2) mg/dl Est Cr Clr Drug Dosing 20.7 ml/min Est GFR ( Amer) 35.1 Est GFR (Non-Af Amer) 30.3 BUN/Creatinine Ratio 16.4 (10-20) Glucose 119 H (70-99) mg/dl POC Lactic Acid Jeremy (0.90-1.70) mmol/L Lactate (0.4-2.0) mmol/L Calcium 8.9 (8.5-10.1) mg/dl Magnesium (1.8-2.4) mg/dl Total Bilirubin 0.4 (0.2-1) mg/dl AST 11 L (15-37) U/L ALT 16 (12-78) U/L Alkaline Phosphatase 80 (45-117) U/L Total Protein 7.5 (6.4-8.2) gm/dl Albumin 3.4 (3.4-5.0) gm/dl Globulin 4.1 H (2.5-4.0) gm/dl Albumin/Globulin Ratio 0.8 L (0.9-2) Urine Color Urine Appearance (Clear) Urine pH (4.5-7.5) Ur Specific Nicol[place] (1.000-1.030) Urine Protein (Negative) Urine Glucose (UA) (Negative) Urine Ketones (Negative) Urine Blood (Negative) Urine Nitrite (Negative) Urine Bilirubin (Negative) Urine Urobilinogen (Negative) Ur Leukocyte Esterase (Negative) Stl C. diff Tox B Gene (Neg) Stl C.difficile Tox A&B (Negative) COVID-19 Eval Order SARS-CoV-2 (PCR) (Negative) Influenza Type A (PCR) (Neg) Influenza Type B (PCR) (Neg) RSV (RT-PCR) (Neg) 10/10/20 10/10/20 10/10/20 Range/Units 06:12 06:12 06:26 WBC (4.8-10.8) K/uL RBC (4.2-5.4) M/uL Hgb (12.0-16.0) g/dL Hct (37-47) % MCV (80-100) fL MCH (25-34) pg MCHC (32-36) g/dL RDW Std Deviation (36.4-46.3) fL RDW Coeff of Wilver (11.5-14.5) % Plt Count (130-400) K/uL MPV (7.4-10.4) fL Immature Gran % (Auto) % Neut % (Auto) % Lymph % (Auto) % [place] % (Auto) % Eos % (Auto) % Baso % (Auto) % Neut # (Auto) (1.4-6.5) K/uL Lymph # (Auto) (1.2-3.4) K/uL [place] # (Auto) (0.11-0.59) K/uL Eos # (Auto) (0-0.5) K/uL Baso # (Auto) (0-0.2) K/uL Immature Gran # (Auto) (0.00-0.02) K/uL RBC Morphology PT (9.0-12.0) Seconds INR (0.9-1.1) APTT (21.0-31.0) Seconds PTT Ratio Sodium (136-145) mmol/L Potassium (3.5-5.1) mmol/L Chloride (98-107) mmol/L Carbon Dioxide (21-32) mmol/L Anion Gap (3-11) BUN (7-18) mg/dl Creatinine (0.6-1.2) mg/dl Est Cr Clr Drug Dosing ml/min Est GFR ( Amer) Est GFR (Non-Af Amer) BUN/Creatinine Ratio (10-20) Glucose (70-99) mg/dl POC Lactic Acid Jeremy 1.14 (0.90-1.70) mmol/L Lactate 1.3 (0.4-2.0) mmol/L Calcium (8.5-10.1) mg/dl Magnesium 1.8 (1.8-2.4) mg/dl Total Bilirubin (0.2-1) mg/dl AST (15-37) U/L ALT (12-78) U/L Alkaline Phosphatase (45-117) U/L Total Protein (6.4-8.2) gm/dl Albumin (3.4-5.0) gm/dl Globulin (2.5-4.0) gm/dl Albumin/Globulin Ratio (0.9-2) Urine Color Urine Appearance (Clear) Urine pH (4.5-7.5) Ur Specific Nicollet (1.000-1.030) Urine Protein (Negative) Urine Glucose (UA) (Negative) Urine Ketones (Negative) Urine Blood (Negative) Urine Nitrite (Negative) Urine Bilirubin (Negative) Urine Urobilinogen (Negative) Ur Leukocyte Esterase (Negative) Stl C. diff Tox B Gene (Neg) Stl C.difficile Tox A&B (Negative) COVID-19 Eval Order SARS-CoV-2 (PCR) (Negative) Influenza Type A (PCR) (Neg) Influenza Type B (PCR) (Neg) RSV (RT-PCR) (Neg) 10/10/20 10/10/20 10/10/20 Range/Units 07:03 07:39 07:39 WBC (4.8-10.8) K/uL RBC (4.2-5.4) M/uL Hgb (12.0-16.0) g/dL Hct (37-47) % MCV (80-100) fL MCH (25-34) pg MCHC (32-36) g/dL RDW Std Deviation (36.4-46.3) fL RDW Coeff of Wilver (11.5-14.5) % Plt Count (130-400) K/uL MPV (7.4-10.4) fL Immature Gran % (Auto) % Neut % (Auto) % Lymph % (Auto) % [place] % (Auto) % Eos % (Auto) % Baso % (Auto) % Neut # (Auto) (1.4-6.5) K/uL Lymph # (Auto) (1.2-3.4) K/uL [place] # (Auto) (0.11-0.59) K/uL Eos # (Auto) (0-0.5) K/uL Baso # (Auto) (0-0.2) K/uL Immature Gran # (Auto) (0.00-0.02) K/uL RBC Morphology PT (9.0-12.0) Seconds INR (0.9-1.1) APTT (21.0-31.0) Seconds PTT Ratio Sodium (136-145) mmol/L Potassium (3.5-5.1) mmol/L Chloride (98-107) mmol/L Carbon Dioxide (21-32) mmol/L Anion Gap (3-11) BUN (7-18) mg/dl Creatinine (0.6-1.2) mg/dl Est Cr Clr Drug Dosing ml/min Est GFR ( Amer) Est GFR (Non-Af Amer) BUN/Creatinine Ratio (10-20) Glucose (70-99) mg/dl POC Lactic Acid Jeremy (0.90-1.70) mmol/L Lactate (0.4-2.0) mmol/L Calcium (8.5-10.1) mg/dl Magnesium (1.8-2.4) mg/dl Total Bilirubin (0.2-1) mg/dl AST (15-37) U/L ALT (12-78) U/L Alkaline Phosphatase (45-117) U/L Total Protein (6.4-8.2) gm/dl Albumin (3.4-5.0) gm/dl Globulin (2.5-4.0) gm/dl Albumin/Globulin Ratio (0.9-2) Urine Color Yellow Urine Appearance Clear (Clear) Urine pH 5.0 (4.5-7.5) Ur Specific Nicollet 1.017 (1.000-1.030) Urine Protein Negative (Negative) Urine Glucose (UA) Negative (Negative) Urine Ketones Trace H (Negative) Urine Blood Negative (Negative) Urine Nitrite Negative (Negative) Urine Bilirubin Negative (Negative) Urine Urobilinogen Negative (Negative) Ur Leukocyte Esterase Negative (Negative) Stl C. diff Tox B Gene Positive Cdiff Gene H (Neg) Stl C.difficile Tox A&B Positive Cdiff Toxin A* (Negative) COVID-19 Eval Order CovFluRsv at [facility] SARS-CoV-2 (PCR) (Negative) Influenza Type A (PCR) (Neg) Influenza Type B (PCR) (Neg) RSV (RT-PCR) (Neg) 10/10/20 Range/Units 07:39 WBC (4.8-10.8) K/uL RBC (4.2-5.4) M/uL Hgb (12.0-16.0) g/dL Hct (37-47) % MCV (80-100) fL MCH (25-34) pg MCHC (32-36) g/dL RDW Std Deviation (36.4-46.3) fL RDW Coeff of Wilver (11.5-14.5) % Plt Count (130-400) K/uL MPV (7.4-10.4) fL Immature Gran % (Auto) % Neut % (Auto) % Lymph % (Auto) % [place] % (Auto) % Eos % (Auto) % Baso % (Auto) % Neut # (Auto) (1.4-6.5) K/uL Lymph # (Auto) (1.2-3.4) K/uL [place] # (Auto) (0.11-0.59) K/uL Eos # (Auto) (0-0.5) K/uL Baso # (Auto) (0-0.2) K/uL Immature Gran # (Auto) (0.00-0.02) K/uL RBC Morphology PT (9.0-12.0) Seconds INR (0.9-1.1) APTT (21.0-31.0) Seconds PTT Ratio Sodium (136-145) mmol/L Potassium (3.5-5.1) mmol/L Chloride (98-107) mmol/L Carbon Dioxide (21-32) mmol/L Anion Gap (3-11) BUN (7-18) mg/dl Creatinine (0.6-1.2) mg/dl Est Cr Clr Drug Dosing ml/min Est GFR ( Amer) Est GFR (Non-Af Amer) BUN/Creatinine Ratio (10-20) Glucose (70-99) mg/dl POC Lactic Acid Jeremy (0.90-1.70) mmol/L Lactate (0.4-2.0) mmol/L Calcium (8.5-10.1) mg/dl Magnesium (1.8-2.4) mg/dl Total Bilirubin (0.2-1) mg/dl AST (15-37) U/L ALT (12-78) U/L Alkaline Phosphatase (45-117) U/L Total Protein (6.4-8.2) gm/dl Albumin (3.4-5.0) gm/dl Globulin (2.5-4.0) gm/dl Albumin/Globulin Ratio (0.9-2) Urine Color Urine Appearance (Clear) Urine pH (4.5-7.5) Ur Specific Nicol[place] (1.000-1.030) Urine Protein (Negative) Urine Glucose (UA) (Negative) Urine Ketones (Negative) Urine Blood (Negative) Urine Nitrite (Negative) Urine Bilirubin (Negative) Urine Urobilinogen (Negative) Ur Leukocyte Esterase (Negative) Stl C. diff Tox B Gene (Neg) Stl C.difficile Tox A&B (Negative) COVID-19 Eval Order SARS-CoV-2 (PCR) NEGATIVE (Negative) Influenza Type A (PCR) Negative (Neg) Influenza Type B (PCR) Negative (Neg) RSV (RT-PCR) Negative (Neg) Administered Medications Acetaminophen (Acetaminophen 500 Mg Tab) 1,000 mg PO HS DAWIT Stop: 11/09/20 20:59 Last Admin: 10/10/20 21:46 Dose: 1,000 mg Documented by: [id number] Bupropion HCl (Bupropion Xl 150 Mg Tabcr) 150 mg PO QAM DAWIT Stop: 11/09/20 10:52 Last Admin: 10/10/20 11:48 Dose: 150 mg Documented by: [id number] Cetirizine HCl (Cetirizine Hcl 10 Mg Tablet) 10 mg PO HS DAWIT Stop: 11/09/20 20:59 Last Admin: 10/10/20 21:46 Dose: 10 mg Documented by: [id number] Clonazepam (Clonazepam 0.5 Mg Tab) 0.5 mg PO HS DAWIT Stop: 11/09/20 20:59 Last Admin: 10/10/20 21:46 Dose: 0.5 mg Documented by: [id number] Heparin Sodium (Porcine) (Heparin Sod 5,000 Unit/0.5 Ml Vial) 5,000 units SQ Q12 DAWIT Stop: 11/09/20 10:52 Last Admin: 10/10/20 21:46 Dose: 5,000 units Documented by: [id number] Admin: 10/10/20 12:00 Dose: 5,000 units Documented by: [id number] Sodium Chloride (Nss 1000ml) 1,000 mls @ 80 mls/hr IV .[id number] DAWIT Stop: 10/11/20 11:52 Last Admin: 10/10/20 22:59 Dose: 80 mls/hr Documented by: [id number] Infusion: 10/10/20 22:59 Dose: 80 mls/hr Documented by: [id number] Admin: 10/10/20 12:08 Dose: 80 mls/hr Documented by: [id number] Tobramycin Sulfate 300 mg/ (Syringe) 7.5 mls @ 0.033 mls/min INH Q12R DAWIT Stop: 11/09/20 11:29 Last Admin: 10/10/20 19:58 Dose: 0.033 mls/min Documented by: [id number] Admin: 10/10/20 12:57 Dose: 0.033 mls/min Documented by: [id number] Admin: 10/10/20 12:45 Dose: Not Given Documented by: [id number] Levothyroxine Sodium (Levothyroxine Sodium 112 Mcg Tablet) 112 mcg PO DAILYBB DAWIT Stop: 11/09/20 10:52 Last Admin: 10/10/20 11:48 Dose: 112 mcg Documented by: [id number] Magnesium Oxide (Magnesium Oxide 400 Mg Tab) 400 mg PO QDD DAWIT Stop: 11/09/20 16:29 Last Admin: 10/10/20 17:51 Dose: 400 mg Documented by: [id number] Miscellaneous (Azelastine Ns~Order Awaiting Action) 1 ea N/A QS DAWIT Stop: 11/09/20 15:59 Last Admin: 10/11/20 01:43 Dose: Not Given Documented by: [id number] Admin: 10/10/20 17:52 Dose: Not Given Documented by: [id number] Miscellaneous (Levomefolate~Order Awaiting Action) 1 ea N/A QS [facility] Stop: 11/09/20 15:59 Last Admin: 10/11/20 01:43 Dose: Not Given Documented by: [id number] Admin: 10/10/20 17:52 Dose: Not Given Documented by: [id number] Raspberry (Raspberry Syrup 5 Ml Udp) 5 ml PO Q6 [facility] Stop: 10/24/20 11:59 Last Admin: 10/11/20 00:40 Dose: 5 ml Documented by: [id number] Admin: 10/10/20 17:51 Dose: 5 ml Documented by: [id number] Admin: 10/10/20 11:50 Dose: 5 ml Documented by: [id number] Sertraline HCl (Sertraline Hcl 100 Mg Tablet) 100 mg PO DAILY [facility] Stop: 11/09/20 10:52 Last Admin: 10/10/20 11:48 Dose: 100 mg Documented by: [id number] Vancomycin HCl (Vancomycin Hcl 125 Mg/2.5ml Soln) 125 mg PO Q6 DAWIT Stop: 10/20/20 11:59 Last Admin: 10/11/20 00:40 Dose: 125 mg Documented by: [id number] Admin: 10/10/20 17:51 Dose: 125 mg Documented by: [id number] Admin: 10/10/20 11:50 Dose: 125 mg Documented by: [id number] Discontinued Medications Sodium Chloride (Nss) 500 mls @ 999 mls/hr IV .Q31M ONE Stop: 10/10/20 06:14 Last Infusion: 10/10/20 07:55 Dose: 0 mls/hr Documented by: [id number] Admin: 10/10/20 06:23 Dose: 999 mls/hr Documented by: [id number] Sodium Chloride (Nss) 500 mls @ 125 mls/hr IV .Q4H DAWIT Stop: 11/09/20 07:29 Last Infusion: 10/10/20 12:49 Dose: 0 mls/hr Documented by: [id number] Admin: 10/10/20 07:29 Dose: 125 mls/hr Documented by: [id number] Senna/Docusate Sodium (Docusate Sodium/Senna 50/8.6mg Tab) 1 tab PO BID DAWIT Stop: 11/09/20 10:52 Last Admin: 10/10/20 11:48 Dose: 1 tab Documented by: [id number] Discharge Plan Visit Data Chief Complaint: Fall Stated Complaint: FALL ED Provider: Rocio Mccann Discharge Problem: Fall, Leukocytosis Patient Disposition: Admitted As Inpatient Discharge Instructions Interventions: ED Discharge Assessment Last Done: 10/10/20 10:23 Discharge Problem: Fall Qualifiers: Encounter type: initial encounter Qualified Code(s): W19.XXXA - Unspecified fall, initial encounter Leukocytosis Qualifiers: Leukocytosis type: unspecified Qualified Code(s): D72.829 - Elevated white blood cell count, unspecified
[2020-10-10 05:25] LABS: Basophils # (auto) 0.03 K/uL (0-0.2); Basophils % (auto) 0.1 %; Eosinophils # (auto) 0.02 K/uL (0-0.5); Eosinophils % (auto) 0.1 %; Hemoglobin 10.8 g/dL (12.0-16.0); Immature Granulocytes # (auto) 0.26 K/uL (0.00-0.02); Immature Granulocytes % (auto) 0.7 %; Lymphocytes # (auto) 0.74 K/uL (1.2-3.4); Lymphocytes % (auto) 1.9 %; Mean Corpuscular Hemoglobin 27.6 pg (25-34); Mean Corpuscular Hgb Conc 31.8 g/dL (32-36); Mean Platelet Volume 9.2 fL (7.4-10.4); Monocytes # (auto) 2.82 K/uL (0.11-0.59); Monocytes % (auto) 7.3 %; Neutrophils # (auto) 34.57 K/uL (1.4-6.5); Neutrophils % (auto) 89.9 %; Platelet Count 369 K/uL (130-400); RBC Morphology Unremarkable; RDW Coefficient of Variation 14.1 % (11.5-14.5); RDW Standard Deviation 44.4 fL (36.4-46.3); Red Blood Count 3.91 M/uL (4.2-5.4); White Blood Count 38.44 K/uL (4.8-10.8)
[2020-10-10 05:37] LABS: Albumin Level 3.4 gm/dl (3.4-5.0); BUN Creatinine Ratio 16.4 (10-20); Calcium 8.9 mg/dl (8.5-10.1); Creatinine Clr Calc Pharmacy 20.7 ml/min; Est GFR (African American) 35.1; Est GFR (Non-African American) 30.3
[2020-10-10 05:39] LABS: Albumin Globulin Ratio 0.8 (0.9-2); Bilirubin,Total 0.4 mg/dl (0.2-1); Globulin 4.1 gm/dl (2.5-4.0); Total Protein 7.5 gm/dl (6.4-8.2)
[2020-10-10] MEDS ORDERED: SODIUM CHLORIDE 0.9% 500 ML IV ONE (05:44)
[2020-10-10 06:42] LABS: Partial Thromboplastin Time 27.1 Seconds (21.0-31.0); Prothrombin Time 10.6 Seconds (9.0-12.0)
[2020-10-10 07:12] LABS: Appearance Urine Clear (Clear); Bilirubin Urine Negative (Negative); Blood Urine Negative (Negative); Color Urine Yellow; Glucose Urine UA Negative (Negative); Ketones Urine Trace (Negative); Leukocyte Esterase Urine Negative (Negative); Nitrite Urine Negative (Negative); Protein Urine Negative (Negative); Specific Gravity Urine 1.017 (1.000-1.030); Urobilinogen Urine Negative (Negative)
[2020-10-10] MEDS ORDERED: SODIUM CHLORIDE 0.9% 500 ML IV SCH (07:30)
--- NOTE | 2020-10-10 07:54 | History & Physical Report ---
Date of Service October 10, 2020 Assessment & Plan (1) Encephalopathy: Pt here with a fall, unclear if mild encephalopathy from infectious source given wbc 38,000. Pt alleges maybe from hypoxia as issue with oxygen tubing, blood cultures pending, CT A/P ordered as history of ischemic colitis with similar presentation treated for translocation of bacteria at that time and wbc improved. In the ER she does have diarrhea C. difficile toxin is pending but the gene is positive initiating vancomycin p.o. continuing hydration at this point (2) Bronchiectasis: Pt remains on chronic inhaled torbramyin, details unclear on where or why this was started (3) COPD (chronic obstructive pulmonary disease): no in exacerbation, remains on symbicort, spiriva and zyrtec (4) Depression: stable on sertraline, bupropion and clonazepam (5) Hypothyroid: last tsh was mildly elevated in 03/23 will recheck in am with t4, continue synthroid (6) DVT prophylaxis: heparin sc for dvt prevention full code History of Present Illness Primary Care Provider: GIOVANNA HPI: 80/F arrives for evaluation of fall. Patient explains that she fell tonight at the [facility]. She had to have a bowel movement in was having difficulty with her oxygen tubing and fell to the ground. She struck the right side of her forehead. She does not think that she lost consciousness. Ct evaluation of head and neck are negative to traumatic derangement other than contusion of face scalp. Incidentally pt found to have profound leukocytosis, 38,000. No immedicate signs of infection. Previously in March 2020, had ischemic colitis with similar presentation. Incidentally on chronically inhaled tobramycin. C diff gene is positive toxin pending will start on vanco po Allergies Allergy/AdvReac Type Severity Reaction Status Date / Time dichloralphenazone AdvReac Severe angina and Unverified 10/10/20 07:55 [From Midrin] hypertension isometheptene [From Midrin] AdvReac Severe angina and Unverified 10/10/20 07:55 hypertension verapamil AdvReac Severe angina and Unverified 10/10/20 07:55 hypertension erythromycin base AdvReac Unknown Unknown Unverified 10/10/20 07:55 Home Medications Medication Instructions Recorded Confirmed Type Spiriva with HandiHaler 1 cap INHALATION QAM 03/07/20 10/10/20 History acetaminophen [Tylenol Extra 1,000 mg PO HS 03/07/20 10/10/20 History Strength] azelastine 2 spray INTRANASAL BIDM 03/07/20 10/10/20 History budesonide-formoterol [Symbicort] 2 puff INHALATION BID 03/07/20 10/10/20 History clonazepam 0.5 mg PO HS 03/07/20 10/10/20 History levothyroxine 112 mcg PO QAM 03/07/20 10/10/20 History omeprazole magnesium [Prilosec OTC] 20 mg PO DAILYBB 03/07/20 10/10/20 History aspirin [Aspir-81] 81 mg PO QAM 10/10/20 10/10/20 History bupropion HCl 150 mg PO QAM 10/10/20 10/10/20 History calcium carbonate [Calcium Antacid] 200 mg PO QDD 10/10/20 10/10/20 History cholecalciferol (vitamin D3) 50 mcg PO QAM 10/10/20 10/10/20 History magnesium oxide 400 mg PO QDD 10/10/20 10/10/20 History potassium chloride 20 meq PO QAM 10/10/20 10/10/20 History sertraline 100 mg PO QAM 10/10/20 10/10/20 History Past Med/Surg History Medical History (Updated 10/10/20 @ 07:53 by Liam Cameron MD) Bronchiectasis Confusion COPD (chronic obstructive pulmonary disease) Dementia Depression Double vision Hypothyroid Migraine Transient cerebral ischemia Surgical History History of tonsillectomy History of tubal ligation Family History Other Family history non-contributory Social History Smoking Status: Former smoker Do You Dip or Chew Tobacco: No; Hx Alcohol Use: No Hx Substance Use: No Preferred Language: Georgian Communication Ability: Effective Comfort Station Supervisor Required: No Beliefs That Will Affect Care: None marital status: / Current Living Situation: Alone and Personal Care Facility Other Information That Helps Us Care for You: No Feels Safe at Home: Yes Safety Concerns: Feels Safe At This Time Assistive Devices: Glasses and Walker Review of Systems Review of Systems: Mild distress and moderate fatigue no headache, blurry or double vision Small abrasion and contusion on her head from falling no speech or swallowing issues no chest pain, pressure or palpitations no shortness of breath, cough or wheezes Minor abdominal pain, nausea or vomiting, nursing reports some diarrhea no dysuria, hematuria or frequency no focal joint pain or swelling no back pain, CVA tenderness or radicular pain no bruising, bleeding or rashes no focal signs of weakness or numbness or altered sensation no complaints of anxiety or depression.. Physical Exam Physical Exam: The patient appeared thin and underweight Vital signs as documented. Head exam is small abrasion on her episcopal may be mild contusion beginning to form Neck is without JVD, thyromegaly, or carotid bruits. Lungs are diminished breath sounds and poor air movement consistent with her COPD no focal loss no wheezes no coughing Cardiac exam, Rhythm is regular.. No murmurs, rubs or gallops. Abdominal exam reveals normal bowel sounds, soft 20 mild tenderness which is nonfocal Extremities are nonedematous and both pedal pulses are present Neurologic exam is alert and oriented x2, no focal loss of strength or sensation Skin is with abrasion and contusion as described Psychologically is without concerns for anxiety or depression Results & Data Results & Data ([facility]) Vital Signs (Past 12 Hours) Vital Signs Temp Pulse Resp BP Pulse Ox 10/10/20 07:00 98 H 19 112/65 100 10/10/20 06:30 97 H 25 H 118/62 100 10/10/20 06:01 99 H 25 H 97 10/10/20 06:00 100 H 26 H 112/56 L 95 10/10/20 05:59 101 H 28 H 90 10/10/20 05:30 101 H 29 H 113/57 L 90 10/10/20 04:23 98.4 F 105 H 16 105/58 L 98 Code Status & VTE Plan VTE Prophylaxis Plan VTE Prophylaxis will be ordered: Yes PG Care Time/CCT Total # of Minutes Spent Total Time Spent with Patient: Total time spent is greater than 50% in coordination of care (as documented) at patient's floor/unit and/or counseling patient: Coding Level of Care Code 08482 Initial Inpt Care Lvl 3 Diagnoses Encephalopathy G93.40 Bronchiectasis J47.9 COPD (chronic obstructive pulmonary disease) J44.9 COPD type: unspecified COPD Depression F32.9 Active/Remission status: remission status unspecified Depression Type: major depressive disorder Major depression recurrence: unspecified whether recurrent Hypothyroid E03.9 Hypothyroidism type: unspecified DVT prophylaxis Z29.9 (1) Depression Active/Remission status: remission status unspecified Depression Type: major depressive disorder Major depression recurrence: unspecified whether recurrent Qualified Code(s): F32.9 - Major depressive disorder, single episode, unspecified (2) Hypothyroid Hypothyroidism type: unspecified Qualified Code(s): E03.9 - Hypothyroidism, unspecified (3) COPD (chronic obstructive pulmonary disease) COPD type: unspecified COPD Qualified Code(s): J44.9 - Chronic obstructive pulmonary disease, unspecified
--- NOTE | 2020-10-10 08:39 | CT Scan Report ---
CT SCAN OF THE CERVICAL SPINE CLINICAL HISTORY: Trauma. Fall. COMPARISON STUDY: CT angiogram of the neck dated 03/07/2020. TECHNIQUE: CT scan of the cervical spine is performed from the skull base to the upper thoracic spine . Images are reviewed in the axial, sagittal, and coronal planes. IV contrast was not administered fo r this examination. A dose lowering technique was utilized adhering to the principles of ALARA. CT DOSE: 953.80 mGy.cm FINDINGS: Skeletal structures: The skeletal structures are osteopenic. There is no evidence of fracture or subl uxation involving the cervical spine. Vertebral body height is maintained. There is minimal anterolis thesis at C4-C5 and minimal retrolisthesis at C5-C6. Alignment is otherwise preserved. There is strai ghtening of the cervical lordosis. Anterior osteophytes are seen throughout. The odontoid process and lateral masses are intact. The atlantoaxial articulation is preserved noting advanced productive deg enerative change. The spinous processes appear intact. There is a minimal chronic superior endplate c ompression deformity of T1. There is moderate multilevel cervical spondylosis. Uncovertebral and face t arthropathy contribute to neural foraminal stenosis at several levels. Intervertebral discs: Moderate disc space narrowing is noted at C5-C6. Mild disc space narrowing is s een at the remaining cervical levels. Central canal: Posterior disc osteophyte complexes at C4-C5, C5-C6, and C6-C7 may contribute to mild acquired compromise of the central canal. Soft tissues: The prevertebral and paraspinous soft tissues are within normal limits. There is athero sclerotic calcification of the carotid bulbs. The thyroid gland is atrophic. Calvarium: The visualized calvarium at the skull base appears intact. Brain parenchyma: Partially visualized brain parenchyma at the skull base is within normal limits not ing age-related involutional change. Sinuses and mastoids: The visualized paranasal sinuses are clear. The mastoid air cells are well pneu matized. Lung apices: Fibrotic change is noted at the apices. IMPRESSION: 1. There is no evidence of fracture or subluxation involving the cervical spine. 2. Osteopenia and spondylotic change as above. ACT 112: Negative or not required by law. Electronically signed by: Riaz Thacker M.D. 10/10/2020 8:38 AM
[2020-10-10 08:43] LABS: Influenza A virus by PCR Negative (Neg); Influenza B virus by PCR Negative (Neg); RSV by PCR Negative (Neg); SARS CoV2 RNA(COVID-19) InHosp NEGATIVE (Negative)
--- NOTE | 2020-10-10 08:44 | CT Scan Report ---
CT SCAN OF THE BRAIN WITHOUT IV CONTRAST CLINICAL HISTORY: Fall. COMPARISON STUDY: CT of the brain dated 03/07/2020. TECHNIQUE: Unenhanced axial CT scan of the brain is performed from the vertex to the skull base. A do se lowering technique was utilized adhering to the principles of ALARA. FINDINGS: Brain parenchyma: There are age-related involutional changes noting moderate subcortical and periven tricular microangiopathic change. There is no hemorrhage, mass effect, or evidence of acute territori al ischemia by CT criteria. Hendricks-white matter differentiation is preserved. No extra-axial fluid khai ection is seen. Ventricles, sulci, cisterns: Prominent secondary to involutional change. Intracranial vasculature: There is atherosclerotic calcification of the cavernous carotid and vertebr al arteries. Calvarium: The skeletal structures are osteopenic. There is no depressed calvarial fracture. Sinuses and mastoids: The paranasal sinuses are clear. The mastoid air cells are well pneumatized. Orbits: The bony orbits are grossly intact. There are bilateral ocular lens implants. IMPRESSION: There is no hemorrhage, mass effect, or evidence of acute territorial ischemia by CT michael prakash. ACT 112: Negative or not required by law. Electronically signed by: Riaz Thacker M.D. 10/10/2020 8:43 AM
--- NOTE | 2020-10-10 08:55 | XRay Report ---
SINGLE VIEW CHEST CLINICAL HISTORY: Sepsis. FINDINGS: 2 AP, portable, upright chest radiographs are compared to study dated 03/11/2020. The examin ation is degraded by portable technique and patient rotation. The cardiomediastinal silhouette is u nremarkable. Emphysematous change is suspected. Chronic interstitial thickening and foci of parenchym al nodularity/opacity are similar to previous. Fibrotic change is noted at the apices. Question super imposed airspace opacities in the right upper lung. No large pleural effusion or pneumothorax is seen . The skeletal structures are osteopenic. The bony thorax is grossly intact. IMPRESSION: 1. Extensive chronic parenchymal changes as above. 2. Question superimposed airspace opacities in the right upper lung. Correlate clinically for evidenc e of a mild infectious/inflammatory pneumonitis. ACT 112: Negative or not required by law. Electronically signed by: Riaz Thacker M.D. 10/10/2020 8:54 AM
[2020-10-10 10:01] LABS: Cdiff Antigen Positive; Cdiff Toxin A+B Positive Cdiff Toxin (Negative)
[2020-10-10] MEDS ORDERED: ACETAMINOPHEN 325 MG TAB PO PRN (10:53)
[2020-10-10] MEDS ORDERED: ONDANSETRON INJ 2 MG/ML 2 ML VIAL IV PRN (10:53)
[2020-10-10] MEDS ORDERED: POLYETHYLENE (MIRALAX) 17 GM PACK PO PRN (10:53)
[2020-10-10] MEDS ORDERED: MAGNESIUM HYDROXIDE SUSP 30 ML UDC PO PRN (10:53)
[2020-10-10] MEDS ORDERED: TOBRAMYCIN 300 MG/5 ML INH SCH (10:53)
[2020-10-10] MEDS ORDERED: POLYETHYLENE (MIRALAX) 17 GM PACK PO SCH (10:53)
[2020-10-10] MEDS ORDERED: ALBUTEROL 0.083% NEBU SOLN 3 ML VIAL INH PRN (10:53)
[2020-10-10] MEDS ORDERED: [UNRECOGNIZED DRUG - OTHER] INH SCH (10:53)
[2020-10-10] MEDS ORDERED: DOCUSATE SODIUM/SENNA 50/8.6MG TAB PO SCH (10:53)
[2020-10-10] MEDS: SERTRALINE HCL 100 MG TABLET PO SCH (11:48)
[2020-10-10] MEDS: buPROPion XL 150 MG TABCR PO SCH (11:48)
[2020-10-10] MEDS: LEVOTHYROXINE SODIUM 112 MCG TABLET PO SCH (11:48)
[2020-10-10] MEDS: RASPBERRY SYRUP 5 ML UDP PO SCH ×2 (11:50→17:51)
[2020-10-10] MEDS: VANCOMYCIN HCL 125 MG/2.5ML SOLN PO SCH ×2 (11:50→17:51)
--- NOTE | 2020-10-10 11:54 | Electrocardiogram Report ---
Test Reason : Blood Pressure : / mmHG Vent. Rate : 098 BPM Atrial Rate : 098 BPM P-R Int : 220 ms QRS Dur : 078 ms QT Int : 354 ms P-R-T Axes : 077 006 085 degrees QTc Int : 451 ms Sinus rhythm with 1st degree A-V block Possible Left atrial enlargement Anterior infarct (cited on or before 10-OCT-2020) Abnormal ECG When compared with ECG of 07-MAR-2020 12:22, QRS duration has decreased Questionable change in initial forces of Anterior leads T wave inversion now evident in Anterior leads Confirmed by Raj Tanner ([id number]) on 10/10/2020 11:53:29 AM Referred By: GIOVANNA Confirmed By:Raj Tanner
[2020-10-10] MEDS: HEPARIN SOD 5,000 UNIT/0.5 ML VIAL SQ SCH ×2 (12:00→21:46)
[2020-10-10] MEDS: SODIUM CHLORIDE 0.9% 1000ML 1,000 ML IV SCH ×2 (12:08→22:59)
[2020-10-10] MEDS: TOBRAMYCIN SULFATE 300 MG in SYRINGE 0 ML INH SCH ×3 (12:45→19:58)
--- NOTE | 2020-10-10 14:34 | CT Scan Report ---
CT SCAN OF THE ABDOMEN AND PELVIS WITHOUT IV CONTRAST CLINICAL HISTORY: Generalized abdominal pain. COMPARISON STUDY: Abdominal CT dated 03/10/2020. TECHNIQUE: CT scan of the abdomen and pelvis is performed from the lung bases to the proximal femora. Images are reviewed in the axial, sagittal, and coronal planes. IV contrast was not administered for this examination. Oral contrast was utilized. A dose lowering technique was utilized adhering to the principles of ALARA. CT DOSE: 236.23 mGy.cm FINDINGS: Lung bases: The heart is normal in size and without pericardial effusion. There are coronary artery c alcifications. There is no lobar consolidation or pleural effusion. Mild bronchiectasis and peribronc hial thickening is again seen at both lung bases with numerous tiny foci of tree-in-bud nodularity an d subpleural opacities. There are small bilateral fat-containing Bochdalek hernias. A tiny hiatal her rosio is noted. Liver: The unenhanced liver is normal in size, contour, and attenuation. There is no intrahepatic damion iary ductal dilatation. Gallbladder: Unremarkable. Spleen: Normal in size and attenuation. Pancreas: The unenhanced pancreas is moderately atrophic and grossly unremarkable. Adrenal glands: Unremarkable. Kidneys: The unenhanced kidneys demonstrate mild cortical atrophy and are without hydronephrosis. The re are no renal calculi identified. There is no evidence of contour deforming renal mass lesion. Abdominal vasculature: The abdominal aorta is normal in course and caliber noting mild atheroscleroti c calcification. Bowel: There is no bowel obstruction. Enteric contrast reaches the rectum. There is diffuse colonic w all thickening and edema with associated pericolonic infiltration. This is greatest involving the cec um and descending colon. The appearance is consistent with a nonspecific pancolitis. The appendix is normal as visualized. Peritoneum: There is no intraperitoneal free air or abdominal ascites. There is a fat-containing umbi lical hernia. Lymphadenopathy: None. Pelvic viscera: The bladder is significantly distended. The uterus and adnexa are normal as visualize d. Skeletal structures: The skeletal structures are heterogeneously osteopenic. There is mild lumbosacra l spondylosis. No lytic or blastic lesions are seen. Soft tissues: The patient is cachectic. IMPRESSION: 1. Findings are consistent with a nonspecific pancolitis, greatest involving the ascending colon and cecum. Clinical correlation will required. 2. No bowel obstruction is seen. 3. There is no intraperitoneal free air or abdominal ascites. 4. Bladder distention. 5. Chronic parenchymal changes at the lung bases are similar to previous. Numerous foci of tree-in-bu d nodularity suggest a chronic infectious/inflammatory pneumonitis. Clinical correlation will be esse ntial. 6. Additional findings as above. ACT 112: Negative or not required by law. Electronically signed by: Riaz Thacker M.D. 10/10/2020 2:32 PM
[2020-10-10] MEDS: MAGNESIUM OXIDE 400 MG TAB PO SCH (17:51)
[2020-10-10] MEDS: clonazePAM 0.5 MG TAB PO SCH (21:46)
[2020-10-10] MEDS: ACETAMINOPHEN 500 MG TAB PO SCH (21:46)
[2020-10-10] MEDS: CETIRIZINE HCL 10 MG TABLET PO SCH (21:46)
[2020-10-11] MEDS: RASPBERRY SYRUP 5 ML UDP PO SCH ×5 (00:40→23:10)
[2020-10-11] MEDS: VANCOMYCIN HCL 125 MG/2.5ML SOLN PO SCH ×5 (00:40→23:10)
[2020-10-11] MEDS: LEVOTHYROXINE SODIUM 112 MCG TABLET PO SCH (06:08)
[2020-10-11 06:42] LABS: Hemoglobin 8.9 g/dL (12.0-16.0); Mean Corpuscular Hemoglobin 27.6 pg (25-34); Mean Corpuscular Hgb Conc 31.8 g/dL (32-36); Mean Corpuscular Volume 86.7 fL (80-100); Mean Platelet Volume 9.6 fL (7.4-10.4); Platelet Count 315 K/uL (130-400); RDW Coefficient of Variation 14.2 % (11.5-14.5); RDW Standard Deviation 45.4 fL (36.4-46.3); Red Blood Count 3.23 M/uL (4.2-5.4); White Blood Count 19.79 K/uL (4.8-10.8)
[2020-10-11] MEDS: TOBRAMYCIN SULFATE 300 MG in SYRINGE 0 ML INH SCH ×2 (07:29→19:04)
[2020-10-11 07:32] LABS: BUN Creatinine Ratio 17.1 (10-20); Calcium 7.7 mg/dl (8.5-10.1); Creatinine Clr Calc Pharmacy 25.8 ml/min; Est GFR (African American) 45.9; Est GFR (Non-African American) 39.6; Potassium 2.8 mmol/L (3.5-5.1); T4 Free Thyroxine 1.12 ng/dl (0.8-1.6); Thyroid Stimulating Hormone 0.865 uIu/ml (0.300-4.500)
[2020-10-11] MEDS: SERTRALINE HCL 100 MG TABLET PO SCH (08:00)
[2020-10-11] MEDS: buPROPion XL 150 MG TABCR PO SCH (08:00)
[2020-10-11] MEDS: HEPARIN SOD 5,000 UNIT/0.5 ML VIAL SQ SCH ×2 (08:00→20:51)
[2020-10-11] MEDS: PANTOprazole 40 MG TAB PO SCH (08:00)
[2020-10-11] MEDS: FLUTICASONE/VILANTEROL 100/25MCG 14 PUFFS/INHALER INH SCH (08:01)
[2020-10-11] MEDS: UMECLIDINIUM BROMIDE 62.5MCG/BLISTER 7 PUFFS/INHALER INH SCH (08:01)
--- NOTE | 2020-10-11 10:03 | Hospitalist Progress Note ---
Date of Service October 11, 2020 Assessment & Plan (1) C. difficile colitis: gene and toxin are positive WBC was high at 38k, down to 19k today continue Vanco 125mg QID for 10-14 days can add Questran for symptom relief (2) Acute kidney injury: Cr was elevated at 1.6, likely from volume loss from diarrhea leading to dehydration continue fluids at 80cc/hr, add K to fluids due to low K Cr improved to 1.2, better urine output repeat BMP tomorrow, likely stop fluids tomorrow (3) Dehydration: due to volume losses from diarrhea, C diff continue NSS + 40mEq of K at 80cc/hr (4) Hypokalemia: low at 2.8 add 40mEq of KCl to fluids and start on 20mEq PO BID repeat BMP in the morning (5) Encephalopathy: likely toxic encephalopathy from C diff infection mental status is clear today encephalopathy appears to be resolved (6) Bronchiectasis: Pt remains on chronic inhaled torbramyin, suspect this would be for chronic suppression therapy, maybe h/o Pseudomonas? (7) COPD (chronic obstructive pulmonary disease): no in exacerbation, remains on symbicort, spiriva and zyrtec (8) Depression: stable on sertraline, bupropion and clonazepam (9) Hypothyroid: last tsh was mildly elevated in 03/23 will recheck in am with t4, continue synthroid (10) DVT prophylaxis: heparin sc for dvt prevention full code Admission and Anticipated Discharge Date Admission Date: October 10, 2020 Subjective patient doing well this morning, no distress she says her diarrhea is improved, no abdominal pain, no fever no dyspnea, she is always on oxygen reviewed labs, WBC improved from 38k to 19k, Cr improved to 1.2 and K is low at 2.8 she is eating okay Review of Systems Review of Systems: All systems reviewed & are unremarkable except as noted in Subjective Physical Exam Constitutional: well developed and + thin; no acute distress Neck: trachea midline, no thyromegaly Respiratory: normal respiratory effort, lungs clear to auscultation Auscultation: + diminished lung sounds Cardiovascular: RRR, no murmur, no edema Gastrointestinal (Abdomen): normal bowel sounds, soft, nontender, no hepa tosplenomegaly Musculoskeletal: no cyanosis or clubbing, extremities motor strength 5/5 Skin: no rashes, warm and dry Neurologic: patellar DTR's 2+ bilat, sensation intact and PERRL, EOMI, accommodation nl, no face palsy, no dysarthria Psychiatric: A+Ox3, euthymic affect Lymphatic: no cervical or axillary lymphadenopathy Results & Data Results & Data ([facility]) Vital Signs (Past 12 Hours) Vital Signs Temp Pulse Resp BP Pulse Ox 10/11/20 07:48 36.6 C 77 16 130/67 99 10/11/20 07:30 88 20 96 10/10/20 23:26 36.6 C 88 18 110/52 L 96 Laboratory Results Laboratory Results - last 24 hr 10/10/20 10/11/20 10/11/20 07:39 05:48 05:48 WBC 19.79 H RBC 3.23 L Hgb 8.9 L Hct 28.0 L MCV 86.7 MCH 27.6 MCHC 31.8 L RDW Std Deviation 45.4 RDW Coeff of Wilver 14.2 Plt Count 315 MPV 9.6 Sodium 140 Potassium 2.8 L D Chloride 111 H Carbon Dioxide 23 Anion Gap 6.0 BUN 22 H Creatinine 1.29 H D Est Cr Clr Drug Dosing 25.8 Est GFR ( Amer) 45.9 Est GFR (Non-Af Amer) 39.6 BUN/Creatinine Ratio 17.1 Glucose 79 Calcium 7.7 L TSH 0.865 Free T4 1.12 Stl C.difficile Tox A&B Positive Cdiff Toxin A* Medications Administered Current Inpatient Medications Acetaminophen (Acetaminophen 500 Mg Tab) 1,000 mg PO DAWIT Stop: 11/09/20 20:59 Last Admin: 10/10/20 21:46 Dose: 1,000 mg Documented by: Acetaminophen (Acetaminophen 325 Mg Tab) 650 mg PO Q4H PRN PRN Reason: pain/fever Stop: 11/09/20 10:52 Albuterol (Albuterol 0.083% Nebu Soln 3 Ml Vial) 2.5 mg INH Q4H PRN PRN Reason: Shortness Of Breath Stop: 11/09/20 10:52 Bupropion HCl (Bupropion Xl 150 Mg Tabcr) 150 mg PO QAM DAWIT Stop: 11/09/20 10:52 Last Admin: 10/11/20 08:00 Dose: 150 mg Documented by: Cetirizine HCl (Cetirizine Hcl 10 Mg Tablet) 10 mg PO HS [facility] Stop: 11/09/20 20:59 Last Admin: 10/10/20 21:46 Dose: 10 mg Documented by: Clonazepam (Clonazepam 0.5 Mg Tab) 0.5 mg PO HS [facility] Stop: 11/09/20 20:59 Last Admin: 10/10/20 21:46 Dose: 0.5 mg Documented by: Fluticasone/Vilanterol (Fluticasone/Vilanterol 100/25mcg 14 Puffs/Inhaler) 1 puffs INH DAILY DAWIT Stop: 11/10/20 08:59 Last Admin: 10/11/20 08:01 Dose: 1 puffs Documented by: Heparin Sodium (Porcine) (Heparin Sod 5,000 Unit/0.5 Ml Vial) 5,000 units SQ Q12 [facility] Stop: 11/09/20 10:52 Last Admin: 10/11/20 08:00 Dose: 5,000 units Documented by: Tobramycin Sulfate 300 mg/ (Syringe) 7.5 mls @ 0.033 mls/min INH Q12R [facility] Stop: 11/09/20 11:29 Last Admin: 10/11/20 07:29 Dose: 0.033 mls/min Documented by: Potassium Chloride 40 meq/ (Sodium Chloride) 1,020 mls @ 80 mls/hr IV .[id number] [facility] Stop: 11/10/20 09:14 Levothyroxine Sodium (Levothyroxine Sodium 112 Mcg Tablet) 112 mcg PO DAILYBB [facility] Stop: 11/09/20 10:52 Last Admin: 10/11/20 06:08 Dose: 112 mcg Documented by: Magnesium Oxide (Magnesium Oxide 400 Mg Tab) 400 mg PO QDD [facility] Stop: 11/09/20 16:29 Last Admin: 10/10/20 17:51 Dose: 400 mg Documented by: Miscellaneous (Azelastine Ns~Order Awaiting Action) 1 ea N/A QS [facility] Stop: 11/09/20 15:59 Last Admin: 10/11/20 07:55 Dose: Not Given Documented by: Miscellaneous (Levomefolate~Order Awaiting Action) 1 ea N/A QS [facility] Stop: 11/09/20 15:59 Last Admin: 10/11/20 07:55 Dose: Not Given Documented by: Ondansetron HCl (Ondansetron Inj 2 Mg/Ml 2 Ml Vial) 4 mg IV Q6H PRN PRN Reason: Nausea Stop: 11/09/20 10:52 Pantoprazole Sodium (Pantoprazole 40 Mg Tab) 40 mg PO QAM [facility] Stop: 11/10/20 08:59 Last Admin: 10/11/20 08:00 Dose: 40 mg Documented by: Potassium Chloride (Potassium Chloride Crtab 20 Meq Tabcr) 20 meq PO BID [facility] Stop: 11/10/20 08:59 Raspberry (Raspberry Syrup 5 Ml Udp) 5 ml PO Q6 [facility] Stop: 10/24/20 11:59 Last Admin: 10/11/20 06:04 Dose: 5 ml Documented by: Sertraline HCl (Sertraline Hcl 100 Mg Tablet) 100 mg PO DAILY [facility] Stop: 11/09/20 10:52 Last Admin: 10/11/20 08:00 Dose: 100 mg Documented by: Umeclidinium Manson (Umeclidinium Manson 62.5mcg/Blister 7 Puffs/Inhaler) 1 puffs INH QAM [facility] Stop: 11/10/20 08:59 Last Admin: 10/11/20 08:01 Dose: 1 puffs Documented by: Vancomycin HCl (Vancomycin Hcl 125 Mg/2.5ml Soln) 125 mg PO Q6 [facility] Stop: 10/20/20 11:59 Last Admin: 10/11/20 06:08 Dose: 125 mg Documented by: PG Care Time/CCT Total # of Minutes Spent Total Time Spent with Patient: Total time spent is greater than 50% in coordination of care (as documented) at patient's floor/unit and/or counseling patient: Coding Level of Care Code 01434 Subseq Hosp Care Lvl 3 Diagnoses C. difficile colitis A04.72 Acute kidney injury N17.9 Dehydration E86.0 Hypokalemia E87.6 Encephalopathy G93.40 Bronchiectasis J47.9 COPD (chronic obstructive pulmonary disease) J44.9 COPD type: unspecified COPD Depression F32.9 Depression Type: major depressive disorder Major depression recurrence: unspecified whether recurrent Active/Remission status: remission status unspecified Hypothyroid E03.9 Hypothyroidism type: unspecified DVT prophylaxis Z29.9 (1) COPD (chronic obstructive pulmonary disease) COPD type: unspecified COPD Qualified Code(s): J44.9 - Chronic obstructive pulmonary disease, unspecified (2) Depression Depression Type: major depressive disorder Major depression recurrence: unspecified whether recurrent Active/Remission status: remission status unspecified Qualified Code(s): F32.9 - Major depressive disorder, single episode, unspecified (3) Hypothyroid Hypothyroidism type: unspecified Qualified Code(s): E03.9 - Hypothyroidism, unspecified
[2020-10-11] MEDS: POTASSIUM CHLORIDE 40 MEQ in SODIUM CHLORIDE 0.9% 1000ML 1,000 ML IV SCH ×2 (11:01→23:09)
[2020-10-11] MEDS: POTASSIUM CHLORIDE CRTAB 20 MEQ TABCR PO SCH ×2 (11:02→20:51)
[2020-10-11] MEDS: MAGNESIUM OXIDE 400 MG TAB PO SCH (16:37)
[2020-10-11] MEDS: CETIRIZINE HCL 10 MG TABLET PO SCH (20:50)
[2020-10-11] MEDS: ACETAMINOPHEN 500 MG TAB PO SCH (20:50)
[2020-10-11] MEDS: clonazePAM 0.5 MG TAB PO SCH (20:51)
[2020-10-11] MEDS: CHOLESTYRAMINE LIGHT 4 GM PKT PO SCH (22:37)
[2020-10-12] MEDS: VANCOMYCIN HCL 125 MG/2.5ML SOLN PO SCH ×4 (06:17→23:22)
[2020-10-12] MEDS: LEVOTHYROXINE SODIUM 112 MCG TABLET PO SCH (06:17)
[2020-10-12] MEDS: RASPBERRY SYRUP 5 ML UDP PO SCH ×4 (06:18→23:22)
[2020-10-12 06:32] LABS: Hematocrit (blood only) 32.1 % (37-47); Hemoglobin 9.8 g/dL (12.0-16.0); Mean Corpuscular Hemoglobin 27.4 pg (25-34); Mean Corpuscular Hgb Conc 30.5 g/dL (32-36); Mean Corpuscular Volume 89.7 fL (80-100); Mean Platelet Volume 9.6 fL (7.4-10.4); Platelet Count 351 K/uL (130-400); RDW Coefficient of Variation 14.2 % (11.5-14.5); RDW Standard Deviation 47.3 fL (36.4-46.3); Red Blood Count 3.58 M/uL (4.2-5.4); White Blood Count 11.62 K/uL (4.8-10.8)
[2020-10-12] MEDS: TOBRAMYCIN SULFATE 300 MG in SYRINGE 0 ML INH SCH ×2 (06:37→21:11)
[2020-10-12 07:14] LABS: BUN Creatinine Ratio 11.1 (10-20); Calcium 8.3 mg/dl (8.5-10.1); Creatinine Clr Calc Pharmacy 33.6 ml/min; Est GFR (African American) 63.3; Est GFR (Non-African American) 54.6; Potassium 4.5 mmol/L (3.5-5.1)
[2020-10-12] MEDS: SERTRALINE HCL 100 MG TABLET PO SCH (09:11)
[2020-10-12] MEDS: PANTOprazole 40 MG TAB PO SCH (09:11)
[2020-10-12] MEDS: buPROPion XL 150 MG TABCR PO SCH (09:11)
[2020-10-12] MEDS: HEPARIN SOD 5,000 UNIT/0.5 ML VIAL SQ SCH ×2 (09:12→20:59)
[2020-10-12] MEDS: FLUTICASONE/VILANTEROL 100/25MCG 14 PUFFS/INHALER INH SCH (09:12)
[2020-10-12] MEDS: UMECLIDINIUM BROMIDE 62.5MCG/BLISTER 7 PUFFS/INHALER INH SCH (09:12)
[2020-10-12] MEDS: POTASSIUM CHLORIDE CRTAB 20 MEQ TABCR PO SCH (09:15)
[2020-10-12] MEDS: CHOLESTYRAMINE LIGHT 4 GM PKT PO SCH ×2 (09:16→21:10)
[2020-10-12] MEDS: POTASSIUM CHLORIDE 40 MEQ in SODIUM CHLORIDE 0.9% 1000ML 1,000 ML IV SCH (11:34)
--- NOTE | 2020-10-12 15:12 | Hospitalist Progress Note ---
Date of Service October 12, 2020 Assessment & Plan (1) C. difficile colitis: gene and toxin are positive WBC was high at 38k on admission, down to 11k today continue Vanco 125mg QID, will treat for 14 days as this appears to be her first occurrence in the record can add Questran for symptom relief plan to discharge tomorrow (2) Acute kidney injury: Cr was elevated at 1.6, likely from volume loss from diarrhea leading to dehydration continue fluids at 80cc/hr, add K to fluids due to low K Cr improved to 0.99, better urine output, stop fluids K is up to 4.5, stop K in fluids and stop PO supplementation drinking better today (3) Dehydration: due to volume losses from diarrhea, C diff trated with NSS + 40mEq of K at 80cc/hr will stop fluids today, less diarrhea, better PO intake (4) Hypokalemia: low at 2.8 on 10/11 added 40mEq of KCl to fluids and started on 20mEq PO BID repeat BMP today shows K is 4.5 stop supplementation (5) Encephalopathy: likely toxic encephalopathy from C diff infection mental status is clear past two days encephalopathy appears to be resolved (6) Bronchiectasis: Pt remains on chronic inhaled torbramyin, suspect this would be for chronic suppression therapy, maybe h/o Pseudomonas? (7) COPD (chronic obstructive pulmonary disease): no in exacerbation, remains on symbicort, spiriva and zyrtec (8) Depression: stable on sertraline, bupropion and clonazepam (9) Hypothyroid: last tsh was mildly elevated in 03/23 will recheck in am with t4, continue synthroid (10) DVT prophylaxis: heparin sc for dvt prevention DNR listed plan to go to [facility] tomorrow Admission and Anticipated Discharge Date Admission Date: October 10, 2020 Subjective patient is doing better, sleeping a lot, less diarrhea she says her appetite is better she typically is on oxygen WBC down to 11k, K is 4.5, Cr is 0.99, will stop fluids will plan on Vancomycin taper on discharge, she agrees she did well with PT/OT, can go back to [facility], likely tomorrow Review of Systems Review of Systems: All systems reviewed & are unremarkable except as noted in Subjective Physical Exam Constitutional: well developed and + thin; no acute distress Neck: trachea midline, no thyromegaly Respiratory: normal respiratory effort, lungs clear to auscultation Auscultation: + diminished lung sounds Cardiovascular: RRR, no murmur, no edema Gastrointestinal (Abdomen): normal bowel sounds, soft, nontender, no hepatosplenomegaly Musculoskeletal: no cyanosis or clubbing, extremities motor strength 5/5 Skin: no rashes, warm and dry Neurologic: patellar DTR's 2+ bilat, sensation intact and PERRL, EOMI, accommodation nl, no face palsy, no dysarthria Psychiatric: A+Ox3, euthymic affect Lymphatic: no cervical or axillary lymphadenopathy Results & Data Results & Data ([facility]) Vital Signs (Past 12 Hours) Vital Signs Temp Pulse Resp BP Pulse Ox 10/12/20 07:07 36.7 C 73 16 140/74 100 Laboratory Results Laboratory Results - last 24 hr 10/12/20 10/12/20 05:58 05:58 WBC 11.62 H RBC 3.58 L Hgb 9.8 L Hct 32.1 L MCV 89.7 MCH 27.4 MCHC 30.5 L RDW Std Deviation 47.3 H RDW Coeff of Wilver 14.2 Plt Count 351 MPV 9.6 Sodium 141 Potassium 4.5 D Chloride 113 H Carbon Dioxide 25 Anion Gap 3.0 BUN 11 Creatinine 0.99 D Est Cr Clr Drug Dosing 33.6 Est GFR ( Amer) 63.3 Est GFR (Non-Af Amer) 54.6 BUN/Creatinine Ratio 11.1 Glucose 80 Calcium 8.3 L Medications Administered Current Inpatient Medications Acetaminophen (Acetaminophen 500 Mg Tab) 1,000 mg PO [facility] Stop: 11/09/20 20:59 Last Admin: 10/11/20 20:50 Dose: 1,000 mg Documented by: Acetaminophen (Acetaminophen 325 Mg Tab) 650 mg PO Q4H PRN PRN Reason: pain/fever Stop: 11/09/20 10:52 Albuterol (Albuterol 0.083% Nebu Soln 3 Ml Vial) 2.5 mg INH Q4H PRN PRN Reason: Shortness Of Breath Stop: 11/09/20 10:52 Bupropion HCl (Bupropion Xl 150 Mg Tabcr) 150 mg PO QA DAWIT Stop: 11/09/20 10:52 Last Admin: 10/12/20 09:11 Dose: 150 mg Documented by: Cetirizine HCl (Cetirizine Hcl 10 Mg Tablet) 10 mg PO HS DAWIT Stop: 11/09/20 20:59 Last Admin: 10/11/20 20:50 Dose: 10 mg Documented by: Cholestyramine Resin (Cholestyramine Light 4 Gm Pkt) 4 gm PO BID@1000,2200 DAWIT Stop: 11/10/20 21:59 Last Admin: 10/12/20 09:16 Dose: 4 gm Documented by: Clonazepam (Clonazepam 0.5 Mg Tab) 0.5 mg PO HS DAWIT Stop: 11/09/20 20:59 Last Admin: 10/11/20 20:51 Dose: 0.5 mg Documented by: Fluticasone/Vilanterol (Fluticasone/Vilanterol 100/25mcg 14 Puffs/Inhaler) 1 puffs INH DAILY DAWIT Stop: 11/10/20 08:59 Last Admin: 10/12/20 09:12 Dose: 1 puffs Documented by: Heparin Sodium (Porcine) (Heparin Sod 5,000 Unit/0.5 Ml Vial) 5,000 units SQ Q12 DAWIT Stop: 11/09/20 10:52 Last Admin: 10/12/20 09:12 Dose: 5,000 units Documented by: Tobramycin Sulfate 300 mg/ (Syringe) 7.5 mls @ 0.033 mls/min INH Q12R DAWIT Stop: 11/09/20 11:29 Last Admin: 10/12/20 06:37 Dose: Not Given Documented by: Levothyroxine Sodium (Levothyroxine Sodium 112 Mcg Tablet) 112 mcg PO DAILYBB DAWIT Stop: 11/09/20 10:52 Last Admin: 10/12/20 06:17 Dose: 112 mcg Documented by: Magnesium Oxide (Magnesium Oxide 400 Mg Tab) 400 mg PO QDD DAWIT Stop: 11/09/20 16:29 Last Admin: 10/11/20 16:37 Dose: 400 mg Documented by: Miscellaneous (Azelastine Ns~Order Awaiting Action) 1 ea N/A QS DAWIT Stop: 11/09/20 15:59 Last Admin: 10/12/20 09:10 Dose: Not Given Documented by: Miscellaneous (Levomefolate~Order Awaiting Action) 1 ea N/A QS [facility] Stop: 11/09/20 15:59 Last Admin: 10/12/20 09:11 Dose: Not Given Documented by: Ondansetron HCl (Ondansetron Inj 2 Mg/Ml 2 Ml Vial) 4 mg IV Q6H PRN PRN Reason: Nausea Stop: 11/09/20 10:52 Pantoprazole Sodium (Pantoprazole 40 Mg Tab) 40 mg PO QAM DAWIT Stop: 11/10/20 08:59 Last Admin: 10/12/20 09:11 Dose: 40 mg Documented by: Raspberry (Raspberry Syrup 5 Ml Udp) 5 ml PO Q6 DAWIT Stop: 10/24/20 11:59 Last Admin: 10/12/20 11:33 Dose: 5 ml Documented by: Sertraline HCl (Sertraline Hcl 100 Mg Tablet) 100 mg PO DAILY [facility] Stop: 11/09/20 10:52 Last Admin: 10/12/20 09:11 Dose: 100 mg Documented by: Umeclidinium [place] (Umeclidinium [place] 62.5mcg/Blister 7 Puffs/Inhaler) 1 puffs INH QAM [facility] Stop: 11/10/20 08:59 Last Admin: 10/12/20 09:12 Dose: 1 puffs Documented by: Vancomycin HCl (Vancomycin Hcl 125 Mg/2.5ml Soln) 125 mg PO Q6 [facility] Stop: 10/20/20 11:59 Last Admin: 10/12/20 11:33 Dose: 125 mg Documented by: PG Care Time/CCT Total # of Minutes Spent Total Time Spent with Patient: Total time spent is greater than 50% in coordination of care (as documented) at patient's floor/unit and/or counseling patient: Coding Level of Care Code 68170 Subseq Hosp Care Lvl 3 Diagnoses C. difficile colitis A04.72 Acute kidney injury N17.9 Dehydration E86.0 Hypokalemia E87.6 Encephalopathy G93.40 Bronchiectasis J47.9 COPD (chronic obstructive pulmonary disease) J44.9 COPD type: unspecified COPD Depression F32.9 Depression Type: major depressive disorder Major depression recurrence: unspecified whether recurrent Active/Remission status: remission status unspecified Hypothyroid E03.9 Hypothyroidism type: unspecified DVT prophylaxis Z29.9 (1) COPD (chronic obstructive pulmonary disease) COPD type: unspecified COPD Qualified Code(s): J44.9 - Chronic obstructive pulmonary disease, unspecified (2) Depression Depression Type: major depressive disorder Major depression recurrence: unspecified whether recurrent Active/Remission status: remission status unspecified Qualified Code(s): F32.9 - Major depressive disorder, single episode, unspecified (3) Hypothyroid Hypothyroidism type: unspecified Qualified Code(s): E03.9 - Hypothyroidism, unspecified
[2020-10-12] MEDS: MAGNESIUM OXIDE 400 MG TAB PO SCH (16:49)
[2020-10-12] MEDS: CETIRIZINE HCL 10 MG TABLET PO SCH (20:58)
[2020-10-12] MEDS: ACETAMINOPHEN 500 MG TAB PO SCH (20:58)
[2020-10-12] MEDS: clonazePAM 0.5 MG TAB PO SCH (21:10)
[2020-10-13] MEDS: VANCOMYCIN HCL 125 MG/2.5ML SOLN PO SCH ×2 (05:50→13:12)
[2020-10-13] MEDS: RASPBERRY SYRUP 5 ML UDP PO SCH ×2 (05:50→13:12)
[2020-10-13] MEDS: LEVOTHYROXINE SODIUM 112 MCG TABLET PO SCH (05:51)
[2020-10-13] MEDS: TOBRAMYCIN SULFATE 300 MG in SYRINGE 0 ML INH SCH (05:51)
[2020-10-13 06:29] LABS: Hematocrit (blood only) 29.5 % (37-47); Hemoglobin 9.3 g/dL (12.0-16.0); Mean Corpuscular Hemoglobin 27.4 pg (25-34); Mean Corpuscular Hgb Conc 31.5 g/dL (32-36); Mean Corpuscular Volume 86.8 fL (80-100); Mean Platelet Volume 9.3 fL (7.4-10.4); Platelet Count 328 K/uL (130-400); RDW Coefficient of Variation 14.2 % (11.5-14.5); RDW Standard Deviation 45.3 fL (36.4-46.3); White Blood Count 8.83 K/uL (4.8-10.8)
[2020-10-13 07:01] LABS: BUN Creatinine Ratio 9.4 (10-20); Calcium 8.4 mg/dl (8.5-10.1); Creatinine Clr Calc Pharmacy 34.7 ml/min; Est GFR (African American) 65.7; Est GFR (Non-African American) 56.6; Potassium 4.4 mmol/L (3.5-5.1)
[2020-10-13] MEDS: buPROPion XL 150 MG TABCR PO SCH (09:04)
[2020-10-13] MEDS: PANTOprazole 40 MG TAB PO SCH (09:04)
[2020-10-13] MEDS: SERTRALINE HCL 100 MG TABLET PO SCH (09:05)
[2020-10-13] MEDS: HEPARIN SOD 5,000 UNIT/0.5 ML VIAL SQ SCH (09:05)
[2020-10-13] MEDS: UMECLIDINIUM BROMIDE 62.5MCG/BLISTER 7 PUFFS/INHALER INH SCH (09:06)
[2020-10-13] MEDS: FLUTICASONE/VILANTEROL 100/25MCG 14 PUFFS/INHALER INH SCH (09:07)
[2020-10-13] MEDS: CHOLESTYRAMINE LIGHT 4 GM PKT PO SCH (11:04)
--- NOTE | 2020-10-13 12:04 | Discharge Summary ---
Date of Service October 13, 2020 Admission HPI Per Admitting Provider HPI: 80/F arrives for evaluation of fall. Patient explains that she fell tonight at [facility]. She had to have a bowel movement in was having difficulty with her oxygen tubing and fell to the ground. She struck the right side of her forehead. She does not think that she lost consciousness. Ct evaluation of head and neck are negative to traumatic derangement other than contusion of face scalp. Incidentally pt found to have profound leukocytosis, 38,000. No immedicate signs of infection. Previously in March 2020, had ischemic colitis with similar presentation. Incidentally on chronically inhaled tobramycin. C diff gene is positive toxin pending will start on vanco po Principal Diagnosis Recurrent C diff colitis, causing dehydration, KITTY Discharge Exam Constitutional well developed and + thin; no acute distress Neck trachea midline, no thyromegaly Respiratory normal respiratory effort, lungs clear to auscultation Auscultation: + diminished lung sounds Cardiovascular RRR, no murmur, no edema Gastrointestinal (Abdomen) normal bowel sounds, soft, nontender, no hepatosplenomegaly Musculoskeletal no cyanosis or clubbing, extremities motor strength 5/5 Skin no rashes, warm and dry Neurologic patellar DTR's 2+ bilat, sensation intact and PERRL, EOMI, accommodation nl, no face palsy, no dysarthria Psychiatric A+Ox3, euthymic affect Lymphatic no cervical or axillary lymphadenopathy Discharge Data Allergies Allergy/AdvReac Type Severity Reaction Status Date / Time dichloralphenazone AdvReac Severe angina and Unverified 10/10/20 07:55 [From Midrin] hypertension isometheptene [From Midrin] AdvReac Severe angina and Unverified 10/10/20 07:55 hypertension verapamil AdvReac Severe angina and Unverified 10/10/20 07:55 hypertension erythromycin base AdvReac Unknown Unknown Unverified 10/10/20 07:55 Consultations 10/10/20 08:03 ED Decision to Admit Stat 10/10/20 10:53 Consult Health Information Management Stat Procedures Performed Operation Date: 10/10/20 16:00 <No data on this case meets the specified criteria> Ordered Studies 10/10/20 04:46 CT cervical spine wo con Urgent CT head/brain wo con Urgent 10/10/20 10:53 CT abd pelvis oral con only Stat Hospital Course (1) C. difficile colitis: gene and toxin are positive WBC was high at 38k on admission, down to 9k today continue Vanco 125mg QID checked with [facility], she completed a course of Vanco in September for her first occurrence since this is recurrent C diff will opt to treat with prolonged taper 125mg QID x 7 days 125mg BID x 7 days 125mg daily x 7 days 125mg every other day for 4 weeks I prescribed the first 7 days, will have provider at [facility] continue after that can add Questran for symptom relief but doing much better (2) Acute kidney injury: Cr was elevated at 1.6, likely from volume loss from diarrhea leading to dehydration treated with fluids at 80cc/hr Cr improved to 0.99, better urine output, stopped fluids K is up to 4.4 eating and drinking better today (3) Dehydration: due to volume losses from diarrhea, C diff treated with NSS + 40mEq of K at 80cc/hr stopped fluids on 10/12 (4) Hypokalemia: low at 2.8 on 10/11 added 40mEq of KCl to fluids and started on 20mEq PO BID repeat BMP today shows K is 4.4 (5) Encephalopathy: likely toxic encephalopathy from C diff infection and KITTY mental status is clear past three days (6) Bronchiectasis: breathing well on 2L, chronic (7) COPD (chronic obstructive pulmonary disease): no in exacerbation, remains on symbicort, spiriva and zyrtec (8) Depression: stable on sertraline, bupropion and clonazepam (9) Hypothyroid: last tsh was mildly elevated in 03/23 will recheck in am with t4, continue synthroid (10) DVT prophylaxis: heparin sc for dvt prevention DNR listed plan to go to [facility] today Total Time Total Time Spent Total Time Spent (In Minutes): 32 Total Time Includes: Examination of the Patient, Discharge Planning and Medication Reconciliation Discharge Plan Discharge Items Patient Disposition: Personal Fdc Reason For Visit: FALL,LAUKOCYTOSIS,?METABOLIC ENCEPHALOPATHY Discharge Diagnosis: C diff colitis Toxic encephalopathy Dehydration Hypokalemia Condition on Discharge: Good Goals: complete taper of Vancomcyin to treat C diff Activity: Resume your previous activity Weightbearing: Full weightbearing Non-emergency contact: Primary Care Provider Call non-emergency contact if: you have any medication questions and your symptoms worsen Follow-up/Referrals: GIOVANNA, [Primary Care Provider] - (one week) Diet: Regular Addtl Attending Provider Instructions: Medications: - VANCOMYCIN: please plan for prolonged taper on discharge since this is recurrence of C diff 125mg QID x 7 days 125mg BID x 7 days 125mg daily x 7 days 125mg every other day for 4 weeks Dehydration, diarrhea, acute kidney injury, hypokalemia - all related to recurrent C diff colitis just completed course of Vancomyin last month for C diff she responded quickly to oral Vancomycin and IV fluids eating and drinking much better, diarrhea resolving with therapy she is strong enough to return to [facility] please continue treatment with prolonged Vancomycin taper Pending Studies at Discharge: No Stand-Alone Forms: My TweetUp, Smoking Cessation Skilled Items Patient informed of condition?: Yes DNR: Yes Discharge Level of Care: Other Communicable Disease: No Discharge Prognosis: Stable Lines: None Urinary Catheter: No Medications and DC Order Prescriptions: New vancomycin 125 mg capsule 125 mg PO QID 7 Days Qty: 28 RF: 0 Continued clonazepam 0.5 mg Tablet 0.5 mg PO HS RF: 0 acetaminophen [Tylenol Extra Strength] 500 mg Tablet 1,000 mg PO HS RF: 0 azelastine 137 mcg (0.1 %) Aerosol,[place] 2 spray INTRANASAL BIDM RF: 0 levothyroxine 112 mcg Tablet 112 mcg PO QAM RF: 0 omeprazole magnesium [Prilosec OTC] 20 mg Tablet,Delayed Release (Dr/Ec) 20 mg PO DAILYBB RF: 0 Spiriva with HandiHaler 18 mcg Capsule, W/Inhalation Device 1 cap INHALATION QAM RF: 0 budesonide-formoterol [Symbicort] 160-4.5 mcg/actuation Hfa Aerosol Inhaler 2 puff INHALATION BID RF: 0 aspirin [Aspir-81] 81 mg Tablet,Delayed Release (Dr/Ec) 81 mg PO QAM RF: 0 bupropion HCl 150 mg tablet extended release 24 hr 150 mg PO QAM RF: 0 cholecalciferol (vitamin D3) 50 mcg (2,000 unit) Tablet 50 mcg PO QAM RF: 0 potassium chloride 20 mEq Tablet Extended Release 20 meq PO QAM RF: 0 magnesium oxide 400 mg magnesium Tablet 400 mg PO QDD RF: 0 sertraline 100 mg tablet 100 mg PO QAM RF: 0 calcium carbonate [Calcium Antacid] 200 mg calcium (500 mg) Tablet,Chewable 200 mg PO QDD RF: 0 Discharge Orders: Discharge Order (Routine); Ordered 10/13/20 Ordered By: Hugh Wheeler Admission Data Admit Date/Time: 10/10/20 07:45 Attending Provider: Hugh Wheeler Admit Provider: Liam Cameron Primary Care Provider: Victorino HEREDIA Providers: Liam Cameron Coding Level of Care Code D/C Day Management >30 mins Diagnoses C. difficile colitis A04.72 Acute kidney injury N17.9 Dehydration E86.0 Hypokalemia E87.6 Encephalopathy G93.40 Bronchiectasis J47.9 COPD (chronic obstructive pulmonary disease) J44.9 COPD type: unspecified COPD Depression F32.9 Depression Type: major depressive disorder Major depression recurrence: unspecified whether recurrent Active/Remission status: remission status unspecified Hypothyroid E03.9 Hypothyroidism type: unspecified DVT prophylaxis Z29.9
== END 2020-10-13 14:30 | disposition home or self-care (01) | DRG 371 ==
LOC: ED 04:15 → 3N 07:45 → SUATTDRO 07:45 → 3N 10:23

== ENCOUNTER 2020-12-15 18:15 | Inpatient (IN) ==
[2020-12-15] MEDS ORDERED: SODIUM CHLORIDE 0.9% 1000ML 250 ML IV ONE (18:46)
[2020-12-15] MEDS ORDERED: ALBUTEROL 0.083% NEBU SOLN 3 ML VIAL NEB STA (18:47)
--- NOTE | 2020-12-15 18:53 | Emergency Department Note ---
History of Present Illness General Chief complaint: Illness Time Seen by Provider: 12/15/20 18:34 Source: patient, EMS, RN notes reviewed and old records reviewed Mode of arrival: EMS Limitations: other (Medical issues/dementia but answers most questions appropriately) History of Present Illness This patient comes in complaining of falling. She apparently felt dizzy and fell. She think she just got confused she bumped her head. They made her come here to get reevaluated. She think she just slipped. She seems a little short of breath as well but tells me this is baseline although slightly worse. She has been coughing again and she says has been doing this chronically. No fever chills denies headache or neck pain. No chest pain. No focal numbness weakness. No abdominal pain. No nausea or vomiting. She lives in assisted living at [facility]. 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 She has had the Covid vaccine. Home Medications Medication Instructions Recorded Confirmed Type acetaminophen 500 mg tablet 1,000 mg PO HS 03/07/20 10/10/20 History (Tylenol Extra Strength) azelastine 137 mcg (0.1 %) nasal 2 spray INTRANASAL BIDM 03/07/20 10/10/20 History spray aerosol budesonide-formoterol HFA 160 2 puff INHALATION BID 03/07/20 10/10/20 History mcg-4.5 mcg/actuation aerosol inhaler (Symbicort) clonazepam 0.5 mg tablet 0.5 mg PO HS 03/07/20 10/10/20 History levothyroxine 112 mcg tablet 112 mcg PO QAM 03/07/20 10/10/20 History omeprazole magnesium 20 mg 20 mg PO DAILYBB 03/07/20 10/10/20 History tablet,delayed release (Prilosec OTC) tiotropium bromide 18 mcg capsule 1 cap INHALATION QAM 03/07/20 10/10/20 History with inhalation device (Spiriva with HandiHaler) aspirin 81 mg tablet,delayed 81 mg PO QAM 10/10/20 10/10/20 History release bupropion HCl 150 mg 24 hr tablet, 150 mg PO QAM 10/10/20 10/10/20 History extended release calcium carbonate 200 mg calcium 200 mg PO QDD 10/10/20 10/10/20 History (500 mg) chewable tablet (Calcium Antacid) cholecalciferol (vitamin D3) 50 50 mcg PO QAM 10/10/20 10/10/20 History mcg (2,000 unit) tablet magnesium oxide 400 mg PO QDD 10/10/20 10/10/20 History potassium chloride 20 mEq 20 meq PO QAM 10/10/20 10/10/20 History tablet,extended release sertraline 100 mg tablet 100 mg PO QAM 10/10/20 10/10/20 History Allergies Allergy/AdvReac Type Severity Reaction Status Date / Time dichloralphenazone AdvReac Severe angina and Unverified 10/10/20 07:55 [From Midrin] hypertension isometheptene [From Midrin] AdvReac Severe angina and Unverified 10/10/20 07:55 hypertension verapamil AdvReac Severe angina and Unverified 10/10/20 07:55 hypertension erythromycin base AdvReac Unknown Unknown Unverified 10/10/20 07:55 Past Med/Surg History Medical History Bronchiectasis Confusion COPD (chronic obstructive pulmonary disease) Dementia Depression Double vision Fall Hypothyroid Leukocytosis Migraine Transient cerebral ischemia Surgical History History of tonsillectomy History of tubal ligation Family History Other Family history non-contributory Social History Smoking Status: Former smoker Hx Alcohol Use: No Hx Substance Use: No Preferred Language: Maltese Communication Ability: Effective Molder Required: No Beliefs That Will Affect Care: None marital status: / Current Living Situation: Alone and Personal Care Facility Feels Safe at Home: Yes Safety Concerns: Feels Safe At This Time Assistive Devices: Glasses and Walker Review of Systems Unobtainable due to cognitive status (The patient has baseline dementia and is confused and therefore a reliable review of systems is unable to be obtained) Physical Exam Vital Signs Vital Signs - 24 hr 12/15/20 18:21 12/15/20 18:36 12/15/20 19:11 Temperature 37.7 C H Temperature Source Oral Pulse Rate 115 H 114 H Pulse Rate [Apical] 118 H Pulse Rate from SpO2 Sensor 115 H Pulse Rhythm Pulse Rhythm [Apical] Respiratory Rate 32 H 30 H 30 H Respiratory Effort / Characteristics Short of Breath Spontaneous Respiratory Depth Shallow Respiratory Pattern Tachypnea Blood Pressure 154/90 H 154/90 H Blood Pressure [Left Arm] Blood Pressure Mean 111 111 Blood Pressure Mean [Left Arm] Blood Pressure Position Sitting Blood Pressure Position [Left Arm] Pulse Oximetry 97 98 95 Oxygen Delivery Method Nasal Cannula Nasal Cannula Oxygen Flow Rate 4 4 Sepsis Recent Fever Within 48 Hours No Sepsis New/Unexplained Change in Mental Status No Sepsis Action Taken by Nursing Physician Notified 12/15/20 19:30 12/15/20 19:33 12/15/20 20:00 Temperature Temperature Source Pulse Rate 120 H Pulse Rate [Apical] 120 H 105 H Pulse Rate from SpO2 Sensor Pulse Rhythm Regular Pulse Rhythm [Apical] Regular Respiratory Rate 40 H 40 H 16 Respiratory Effort / Characteristics Accessory Muscle Use Short of Breath SOB on Exertion Spontaneous Accessory Muscle Use Labored Short of Breath SOB on Exertion Respiratory Depth Shallow Respiratory Pattern Regular Tachypnea Blood Pressure Blood Pressure [Left Arm] 154/90 H 150/90 H Blood Pressure Mean Blood Pressure Mean [Left Arm] 111 110 Blood Pressure Position Blood Pressure Position [Left Arm] Sitting Lying Pulse Oximetry 95 95 98 Oxygen Delivery Method Nasal Cannula Nasal Cannula Room Air Oxygen Flow Rate 4 4 Sepsis Recent Fever Within 48 Hours Sepsis New/Unexplained Change in Mental Status Sepsis Action Taken by Nursing General: Well developed well nourished older female who is mildly tachypneic but in no acute distress, breathing comfortably on room air. Normal speech HEENT: Normal cephalic atraumatic. Pupils are equal round and reactive to light. Extraocular movements are intact. Oropharynx is pink with moist mucous membranes. No swelling of the mouth lips or tongue. Neck: Supple with a midline trachea. No meningeal signs or stiffness, no JVD or bruits. No Stridor. Chest: Clear to auscultation bilaterally. No wheezes or rhonchi. No increased work of breathing. Heart: Regular rate and rhythm without murmurs or gallops. Abdomen: Soft nontender, nondistended without rebound guarding or rigidity. Extremities: No cyanosis clubbing or edema. No calf tenderness or assymetry Spine/Back. Non tender to palpation. No CVA tenderness Skin: Good turgor without rashes. Neurologic exam: Cranial nerves two through 12 are intact. Motor and sensation are intact and symmetrical throughout. Course Administered Medications Lactated Ringer's (Lr) 1,000 mls @ 90 mls/hr IV .Q11H7M DAWIT Stop: 01/14/21 22:55 Last Admin: 12/16/20 00:17 Dose: 90 mls/hr Documented by: [id number] Raspberry (Raspberry Syrup 5 Ml Udp) 5 ml PO Q6 DAWIT Stop: 12/30/20 00:00 Last Admin: 12/16/20 00:29 Dose: 5 ml Documented by: [id number] Vancomycin HCl (Vancomycin Hcl 125 Mg/2.5ml Soln) 125 mg PO Q6 DAWIT Stop: 12/26/20 00:00 Last Admin: 12/16/20 00:29 Dose: 125 mg Documented by: [id number] Discontinued Medications Albuterol (Albuterol 0.083% Nebu Soln 3 Ml Vial) 2.5 mg NEB NOW STA Stop: 12/15/20 18:48 Last Admin: 12/15/20 19:10 Dose: 2.5 mg Documented by: [id number] Clonazepam (Clonazepam 0.5 Mg Tab) 0.5 mg PO NOW STA Stop: 12/15/20 23:33 Last Admin: 12/16/20 00:17 Dose: 0.5 mg Documented by: [id number] Sodium Chloride (Nss 1000ml) 250 mls @ 999 mls/hr IV .Q16M ONE Stop: 12/15/20 19:01 Last Infusion: 12/15/20 22:23 Dose: 0 mls/hr Documented by: [id number] Admin: 12/15/20 19:07 Dose: 999 mls/hr Documented by: [id number] Sodium Chloride (Nss 1000ml) 1,000 mls @ 125 mls/hr IV .Q8H DAWIT Stop: 01/14/21 19:59 Last Infusion: 12/15/20 23:00 Dose: 0 mls/hr Documented by: [id number] Admin: 12/15/20 19:57 Dose: 125 mls/hr Documented by: [id number] Piperacillin Sod/Tazobactam Sod (Zosyn) 4.5 gm in 120 mls @ 240 mls/hr IV NOW ONE Stop: 12/15/20 21:42 Last Infusion: 12/15/20 22:30 Dose: 0 mls/hr Documented by: [id number] Admin: 12/15/20 21:34 Dose: 240 mls/hr Documented by: [id number] Sodium Chloride (Nss 1000ml) 500 mls @ 999 mls/hr IV .Q31M ONE Stop: 12/15/20 21:44 Last Infusion: 12/15/20 22:24 Dose: 0 mls/hr Documented by: [id number] Admin: 12/15/20 21:35 Dose: 999 mls/hr Documented by: [id number] Ondansetron HCl (Ondansetron Inj 2 Mg/Ml 2 Ml Vial) 4 mg IV NOW STA Stop: 12/15/20 19:49 Last Admin: 12/15/20 19:56 Dose: 4 mg Documented by: [id number] Ondansetron HCl (Ondansetron Inj 2 Mg/Ml 2 Ml Vial) 4 mg IV NOW STA Stop: 12/15/20 21:14 Last Admin: 12/15/20 21:25 Dose: 4 mg Documented by: [id number] Critical Care Time Critical Care Time: Yes Total Critical Care Time: 30 Due to the patient's encephalopathy/altered mental status, complex medical history with tachycardia, need for IV fluids IV medications frequent reassessment consultation and additional medication and consultation with the family, I have personally spent greater than 30 minutes of critical care time in the direct management of this patient. This includes bedside care, interpretation of diagnostic studies, and testing, discussion with consultants, patient, and family members, and other required patient management activities. This 30 minutes is in excess of all separately billable procedures. Medical Decision Making Differential Diagnosis Fall, trauma, respiratory distress, infection, COPD, infection, sepsis, ischemic colitis, electrolyte or metabolic abnormality, COPD exacerbation, intracranial hemorrhage, encephalopathy Laboratory Data Attestation: I reviewed the patient's lab results. Result diagrams: 12/15/20 18:50 12/15/20 18:50 Lab Results 12/15/20 12/15/20 12/15/20 Range/Units 18:50 18:50 18:50 WBC 12.86 H (4.8-10.8) K/uL RBC 4.01 L (4.2-5.4) M/uL Hgb 11.0 L (12.0-16.0) g/dL Hct 35.9 L (37-47) % MCV 89.5 (80-100) fL MCH 27.4 (25-34) pg MCHC 30.6 L (32-36) g/dL RDW Std Deviation 49.9 H (36.4-46.3) fL RDW Coeff of Wilver 15.1 H (11.5-14.5) % Plt Count 363 (130-400) K/uL MPV 10.4 (7.4-10.4) fL Immature Gran % (Auto) 0.2 % Neut % (Auto) 83.2 % Lymph % (Auto) 9.5 % [place] % (Auto) 5.7 % Eos % (Auto) 1.2 % Baso % (Auto) 0.2 % Neut # (Auto) 10.71 H (1.4-6.5) K/uL Lymph # (Auto) 1.22 (1.2-3.4) K/uL [place] # (Auto) 0.73 H (0.11-0.59) K/uL Eos # (Auto) 0.16 (0-0.5) K/uL Baso # (Auto) 0.02 (0-0.2) K/uL Immature Gran # (Auto) 0.02 (0.00-0.02) K/uL PT 9.9 (9.0-12.0) Seconds INR 1.0 (0.9-1.1) APTT 25.4 (21.0-31.0) Seconds PTT Ratio 1.0 Sodium 137 (136-145) mmol/L Potassium 4.1 (3.5-5.1) mmol/L Chloride 105 (98-107) mmol/L Carbon Dioxide 29 (21-32) mmol/L Anion Gap 3.0 (3-11) BUN 29 H (7-18) mg/dl Creatinine 1.19 (0.6-1.2) mg/dl Est Cr Clr Drug Dosing Not Reportable Est GFR ( Amer) 50.6 ml/min Est GFR (Non-Af Amer) 43.7 ml/min BUN/Creatinine Ratio 24.0 H (10-20) Glucose 100 H (70-99) mg/dl Lactate (0.4-2.0) mmol/L Calcium 8.6 (8.5-10.1) mg/dl Magnesium 2.2 (1.8-2.4) mg/dl Total Bilirubin 0.2 (0.2-1) mg/dl AST 20 (15-37) U/L ALT 29 (12-78) U/L Alkaline Phosphatase 102 (45-117) U/L Troponin I < 0.015 (0-0.045) ng/ml NT-Pro-B Natriuret Pep 217 (0-1800) pg/ml Total Protein 8.4 H (6.4-8.2) gm/dl Albumin 3.9 (3.4-5.0) gm/dl Globulin 4.4 H (2.5-4.0) gm/dl Albumin/Globulin Ratio 0.9 (0.9-2) Procalcitonin (0-0.5) ng/ml COVID-19 Eval Order SARS-CoV-2 (PCR) (Negative) 12/15/20 12/15/20 12/15/20 Range/Units 18:50 18:50 20:00 WBC (4.8-10.8) K/uL RBC (4.2-5.4) M/uL Hgb (12.0-16.0) g/dL Hct (37-47) % MCV (80-100) fL MCH (25-34) pg MCHC (32-36) g/dL RDW Std Deviation (36.4-46.3) fL RDW Coeff of Wilver (11.5-14.5) % Plt Count (130-400) K/uL MPV (7.4-10.4) fL Immature Gran % (Auto) % Neut % (Auto) % Lymph % (Auto) % [place] % (Auto) % Eos % (Auto) % Baso % (Auto) % Neut # (Auto) (1.4-6.5) K/uL Lymph # (Auto) (1.2-3.4) K/uL [place] # (Auto) (0.11-0.59) K/uL Eos # (Auto) (0-0.5) K/uL Baso # (Auto) (0-0.2) K/uL Immature Gran # (Auto) (0.00-0.02) K/uL PT (9.0-12.0) Seconds INR (0.9-1.1) APTT (21.0-31.0) Seconds PTT Ratio Sodium (136-145) mmol/L Potassium (3.5-5.1) mmol/L Chloride (98-107) mmol/L Carbon Dioxide (21-32) mmol/L Anion Gap (3-11) BUN (7-18) mg/dl Creatinine (0.6-1.2) mg/dl Est Cr Clr Drug Dosing Est GFR ( Amer) ml/min Est GFR (Non-Af Amer) ml/min BUN/Creatinine Ratio (10-20) Glucose (70-99) mg/dl Lactate 1.2 (0.4-2.0) mmol/L Calcium (8.5-10.1) mg/dl Magnesium (1.8-2.4) mg/dl Total Bilirubin (0.2-1) mg/dl AST (15-37) U/L ALT (12-78) U/L Alkaline Phosphatase (45-117) U/L Troponin I (0-0.045) ng/ml NT-Pro-B Natriuret Pep (0-1800) pg/ml Total Protein (6.4-8.2) gm/dl Albumin (3.4-5.0) gm/dl Globulin (2.5-4.0) gm/dl Albumin/Globulin Ratio (0.9-2) Procalcitonin 0.06 (0-0.5) ng/ml COVID-19 Eval Order Covid19 at [facility] SARS-CoV-2 (PCR) (Negative) 12/15/20 Range/Units 20:00 WBC (4.8-10.8) K/uL RBC (4.2-5.4) M/uL Hgb (12.0-16.0) g/dL Hct (37-47) % MCV (80-100) fL MCH (25-34) pg MCHC (32-36) g/dL RDW Std Deviation (36.4-46.3) fL RDW Coeff of Wilver (11.5-14.5) % Plt Count (130-400) K/uL MPV (7.4-10.4) fL Immature Gran % (Auto) % Neut % (Auto) % Lymph % (Auto) % [place] % (Auto) % Eos % (Auto) % Baso % (Auto) % Neut # (Auto) (1.4-6.5) K/uL Lymph # (Auto) (1.2-3.4) K/uL [place] # (Auto) (0.11-0.59) K/uL Eos # (Auto) (0-0.5) K/uL Baso # (Auto) (0-0.2) K/uL Immature Gran # (Auto) (0.00-0.02) K/uL PT (9.0-12.0) Seconds INR (0.9-1.1) APTT (21.0-31.0) Seconds PTT Ratio Sodium (136-145) mmol/L Potassium (3.5-5.1) mmol/L Chloride (98-107) mmol/L Carbon Dioxide (21-32) mmol/L Anion Gap (3-11) BUN (7-18) mg/dl Creatinine (0.6-1.2) mg/dl Est Cr Clr Drug Dosing Est GFR ( Amer) ml/min Est GFR (Non-Af Amer) ml/min BUN/Creatinine Ratio (10-20) Glucose (70-99) mg/dl Lactate (0.4-2.0) mmol/L Calcium (8.5-10.1) mg/dl Magnesium (1.8-2.4) mg/dl Total Bilirubin (0.2-1) mg/dl AST (15-37) U/L ALT (12-78) U/L Alkaline Phosphatase (45-117) U/L Troponin I (0-0.045) ng/ml NT-Pro-B Natriuret Pep (0-1800) pg/ml Total Protein (6.4-8.2) gm/dl Albumin (3.4-5.0) gm/dl Globulin (2.5-4.0) gm/dl Albumin/Globulin Ratio (0.9-2) Procalcitonin (0-0.5) ng/ml COVID-19 Eval Order SARS-CoV-2 (PCR) NEGATIVE (Negative) Imaging Data Attestation: I personally reviewed and interpreted this imaging study as follows: Radiologist's Impression: Cervical Spine CT 12/15/20 18:42 CT SCAN OF THE CERVICAL SPINE CLINICAL HISTORY: Trauma. Fall. COMPARISON STUDY: CT of the cervical spine dated 10/10/2020. TECHNIQUE: CT scan of the cervical spine is performed from the skull base to the upper thoracic spine. Images are reviewed in the axial, sagittal, and coronal planes. IV contrast was not administered for this examination. A dose lowering technique was utilized adhering to the principles of ALARA. FINDINGS: Skeletal structures: The skeletal structures are osteopenic. There is no evidence of fracture or subluxation involving the cervical spine. Vertebral body height is maintained. There is minimal anterolisthesis at C4-C5 and minimal retrolisthesis at C5-C6. Alignment is otherwise preserved. There is straightening of the cervical lordosis. Anterior osteophytes are seen throughout. The odontoid process and lateral masses are intact. The atlantoaxial articulation is preserved noting advanced productive degenerative change. The spinous processes appear intact. There is a minimal chronic superior endplate compression deformity of T1. There is moderate multilevel cervical spondylosis. Uncovertebral and facet arthropathy contribute to neural foraminal stenosis at several levels. Intervertebral discs: Moderate disc space narrowing is noted at C5-C6. Mild disc space narrowing is seen at the remaining cervical levels. Central canal: Posterior disc osteophyte complexes at C4-C5, C5-C6, and C6-C7 may contribute to mild acquired compromise of the central canal. Soft tissues: The prevertebral and paraspinous soft tissues are within normal limits. There is atherosclerotic calcification of the carotid bulbs. The thyroid gland is atrophic. Calvarium: The visualized calvarium at the skull base appears intact. Brain parenchyma: Partially visualized brain parenchyma at the skull base is within normal limits noting age-related involutional change. Sinuses and mastoids: The visualized paranasal sinuses are clear. The mastoid air cells are well pneumatized. Lung apices: Fibrotic change is noted at the apices. IMPRESSION: 1. There is no evidence of fracture or subluxation involving the cervical spine. 2. Osteopenia and spondylotic change as above. ACT 112: Negative or not required by law. Electronically signed by: Riaz Thacker M.D. 12/15/2020 10:21 PM Chest X-Ray 12/15/20 18:42 XR chest 1V portable HISTORY: 80 years-old Female sob, fall acute shortness of breath status post fall COMPARISON: 10/10/2020 and chest radiograph, CT cervical spine 10/10/2020 TECHNIQUE: Portable AP view the chest FINDINGS: Cardiac mediastinal and hilar silhouettes are unchanged. The patient is mildly rotated. Extensive chronic reticular nodular opacities with suggested bronchiectasis and hyperinflation, unchanged from comparison. No pneumothorax, pleural effusion, airspace consolidation or overt pulmonary edema. Degenerative changes of the shoulders and spine. IMPRESSION: Chronic findings as above without acute process. ACT 112: Negative or not required by law. The above report was generated using voice recognition software. It may contain grammatical, syntax or spelling errors. Electronically signed by: Leonel Angeles M.D. 12/15/2020 7:[address] 12/15/20 18:42 CT SCAN OF THE BRAIN WITHOUT IV CONTRAST CLINICAL HISTORY: Fall. Change in mental status. COMPARISON STUDY: CT of the brain dated 10/10/2020. TECHNIQUE: Unenhanced axial CT scan of the brain is performed from the vertex to the skull base. A dose lowering technique was utilized adhering to the principles of ALARA. The patient was scanned twice due to motion artifact. The examination is motion compromised. FINDINGS: Brain parenchyma: There are age-related involutional changes noting mild to moderate subcortical and periventricular microangiopathic change. There is no hemorrhage, mass effect, or evidence of acute territorial ischemia by CT criteria. Hendricks-white matter differentiation is preserved. No extra-axial fluid collection is seen. Ventricles, sulci, cisterns: Prominent secondary to involutional change. Intracranial vasculature: There is atherosclerotic calcification of the cavernous carotid and vertebral arteries. Calvarium: The skeletal structures are osteopenic. No depressed calvarial fracture is identified. Sinuses and mastoids: The paranasal sinuses are clear. The mastoid air cells are well pneumatized. Orbits: The bony orbits are grossly intact. There are bilateral ocular lens implants. IMPRESSION: There is no hemorrhage, mass effect, or evidence of acute territorial ischemia by CT criteria noting a motion compromised examination. ACT 112: Negative or not required by law. Electronically signed by: Riaz Thacker M.D. 12/15/2020 10:16 PM Abdomen/Pelvis CT 12/15/20 19:48 CT SCAN OF THE CHEST, ABDOMEN, AND PELVIS WITHOUT IV CONTRAST CLINICAL HISTORY: Trauma. Fall. Infection. COMPARISON STUDY: Chest x-ray dated 12/15/2020. Abdominal CT dated 10/10/2020. TECHNIQUE: Unenhanced CT scan of the chest, abdomen, and pelvis was performed from the thoracic inlet to the proximal femora. Images are reviewed in the axial, sagittal, and coronal planes. Note that the examination is significantly suboptimal without oral and IV contrast. There is also significant motion artifact, as well as streak artifact from the arms which could not be elevated above the chest or abdomen.. A dose lowering technique was utilized adhering to the principles of ALARA. CT DOSE: 2560.03 mGy.cm FINDINGS: CHEST: Thyroid: Atrophic. Thoracic aorta: The thoracic aorta is normal in caliber and demonstrates standard 3-vessel arch anatomy. Heart: The heart is normal in size and without pericardial effusion. The coronary arteries are densely calcified. Lungs and pleural spaces: Evaluation of the lung parenchyma is compromised by motion artifact. There is no lobar consolidation, pleural effusion, or pneumothorax. Fat-containing Bochdalek hernias are seen at both lung bases. Secretions are noted within the trachea and mainstem bronchi. Fibrotic change is present throughout both lungs, greatest in the right middle lobe. Mild bronchiectasis is noted in the lower lobes and the right middle lobe. Numerous centrilobular nodules are consistent with chronic lung disease. Foci of tree-in-bud nodularity are scattered throughout both lungs. A 5 mm left lower lobe pulmonary nodule seen on image #162. Diffuse peribronchial thickening is observed. Mediastinum: There is no mediastinal lymphadenopathy. Rita: Not well assessed without IV contrast. Axillae: There is no axillary lymphadenopathy. Bony thorax: The skeletal structures are osteopenic. No lytic or blastic lesions are identified. Soft tissues: The patient is cachectic. ABDOMEN AND PELVIS: Liver: The unenhanced liver is normal in size, contour, and attenuation. There is no intra- or extrahepatic biliary ductal dilatation. Gallbladder: Unremarkable. Spleen: Normal in size and attenuation. Pancreas: The unenhanced pancreas is moderately atrophic and grossly unremarkable. Adrenal glands: Unremarkable. Kidneys: The unenhanced kidneys demonstrate cortical atrophy and are without hydronephrosis. No renal calculi are identified. There is no evidence of contour deforming mass lesion. Abdominal vasculature: The abdominal aorta is normal in course and caliber noting mild to moderate atherosclerotic calcification. Bowel: There is rectosigmoid fecal retention. No bowel obstruction is id entified. Mild wall thickening is suggested throughout the colon with pericolonic infiltration. This is greatest involving the left colon. The appendix is well-visualized and normal. Peritoneum: There is no intraperitoneal free air or abdominal ascites. There is a fat-containing umbilical hernia. Lymphadenopathy: None. Pelvic viscera: The bladder is distended but otherwise normal in appearance. The uterus and adnexa are normal as visualized. Skeletal structures: The skeletal structures are osteopenic. The lumbosacral spine, bony pelvis, and proximal femora appear intact. There is mild lumbosacral spondylosis. No lytic or blastic lesions are seen. IMPRESSION: 1. Significantly suboptimal examination without oral and IV contrast. The examination is also compromised by streak and motion. 2. There is no acute posttraumatic intrathoracic abnormality. 3. There is no lobar consolidation, pleural effusion, or pneumothorax. 4. Fibrotic change is present throughout both lungs with scattered centrilobular nodules as detailed above. The appearance suggests a chronic infectious/inflammatory process such as atypical mycobacterium. Nonemergent/outpatient pulmonology follow-up is recommended. 5. There is a 5 mm indeterminant pulmonary nodule in the left lower lobe. This is likely inflammatory. A follow-up chest CT in 3 months time is recommended for reassessment. 6. Scattered foci of tree-in-bud nodularity throughout both lungs are likely on an infectious/inflammatory basis and clinical correlation will be required. 7. There is no evidence of solid organ injury in the abdomen or pelvis on this unenhanced examination. 8. Findings suggest a nonspecific colitis of the left colon. Clinical correlation will be required. 9. Bladder distention. 10. Rectosigmoid fecal retention. 11. Additional findings as above. ACT 112: Positive. There are findings on this exam that require communication between the performing entity and the patient following Patient Test Result Information Act ([place] Act 112) guidelines. Electronically signed by: Riaz Thacker M.D. 12/15/2020 10:[address] 12/15/20 21:29 CT SCAN OF THE CHEST, ABDOMEN, AND PELVIS WITHOUT IV CONTRAST CLINICAL HISTORY: Trauma. Fall. Infection. COMPARISON STUDY: Chest x-ray dated 12/15/2020. Abdominal CT dated 10/10/2020. TECHNIQUE: Unenhanced CT scan of the chest, abdomen, and pelvis was performed from the thoracic inlet to the proximal femora. Images are reviewed in the axial, sagittal, and coronal planes. Note that the examination is significantly suboptimal without oral and IV contrast. There is also significant motion artifact, as well as streak artifact from the arms which could not be elevated above the chest or abdomen.. A dose lowering technique was utilized adhering to the principles of ALARA. CT DOSE: 2560.03 mGy.cm FINDINGS: CHEST: Thyroid: Atrophic. Thoracic aorta: The thoracic aorta is normal in caliber and demonstrates standard 3-vessel arch anatomy. Heart: The heart is normal in size and without pericardial effusion. The coronary arteries are densely calcified. Lungs and pleural spaces: Evaluation of the lung parenchyma is compromised by m otion artifact. There is no lobar consolidation, pleural effusion, or pneumothorax. Fat-containing Bochdalek hernias are seen at both lung bases. Secretions are noted within the trachea and mainstem bronchi. Fibrotic change is present throughout both lungs, greatest in the right middle lobe. Mild br onchiectasis is noted in the lower lobes and the right middle lobe. Numerous centrilobular nodules are consistent with chronic lung disease. Foci of tree-in-bud nodularity are scattered throughout both lungs. A 5 mm left lower lobe pulmonary nodule seen on image #162. Diffuse peribronchial thickening is observed. Mediastinum: There is no mediastinal lymphadenopathy. Rita: Not well assessed without IV contrast. Axillae: There is no axillary lymphadenopathy. Bony thorax: The skeletal structures are osteopenic. No lytic or blastic lesions are identified. Soft tissues: The patient is cachectic. ABDOMEN AND PELVIS: Liver: The unenhanced liver is normal in size, contour, and attenuation. There is no intra- or extrahepatic biliary ductal dilatation. Gallbladder: Unremarkable. Spleen: Normal in size and attenuation. Pancreas: The unenhanced pancreas is moderately atrophic and grossly unremarkable. Adrenal glands: Unremarkable. Kidneys: The unenhanced kidneys demonstrate cortical atrophy and are without hydronephrosis. No renal calculi are identified. There is no evidence of contour deforming mass lesion. Abdominal vasculature: The abdominal aorta is normal in course and caliber noting mild to moderate atherosclerotic calcification. Bowel: There is rectosigmoid fecal retention. No bowel obstruction is identif ied. Mild wall thickening is suggested throughout the colon with pericolonic infiltration. This is greatest involving the left colon. The appendix is well- visualized and normal. Peritoneum: There is no intraperitoneal free air or abdominal ascites. There is a fat-containing umbilical hernia. Lymphadenopathy: None. Pelvic viscera: The bladder is distended but otherwise normal in appearance. The uterus and adnexa are normal as visualized. Skeletal structures: The skeletal structures are osteopenic. The lumbosacral spine, bony pelvis, and proximal femora appear intact. There is mild lumbosacral spondylosis. No lytic or blastic lesions are seen. IMPRESSION: 1. Significantly suboptimal examination without oral and IV contrast. The examination is also compromised by streak and motion. 2. There is no acute posttraumatic intrathoracic abnormality. 3. There is no lobar consolidation, pleural effusion, or pneumothorax. 4. Fibrotic change is present throughout both lungs with scattered centrilobular nodules as detailed above. The appearance suggests a chronic infectious/inflammatory process such as atypical mycobacterium. Nonemergent/outpatient pulmonology follow-up is recommended. 5. There is a 5 mm indeterminant pulmonary nodule in the left lower lobe. This is likely inflammatory. A follow-up chest CT in 3 months time is recommended for reassessment. 6. Scattered foci of tree-in-bud nodularity throughout both lungs are likely on an infectious/inflammatory basis and clinical correlation will be required. 7. There is no evidence of solid organ injury in the abdomen or pelvis on this unenhanced examination. 8. Findings suggest a nonspecific colitis of the left colon. Clinical correlation will be required. 9. Bladder distention. 10. Rectosigmoid fecal retention. 11. Additional findings as above. ACT 112: Positive. There are findings on this exam that require communication between the performing entity and the patient following Patient Test Result Information Act ([place] Act 112) guidelines. Electronically signed by: Riaz Thacker M.D. 12/15/2020 10:34 PM ECG Data Attestation: I personally reviewed and interpreted this ECG as follows: Indication: + SOB/dyspnea and + weakness Rate (beats per minute): 117 Rhythm: + sinus tachycardia and + other (Poor baseline/artifact which makes interpretation difficult) ECG Intervals/blocks: + Normal QRS, + Normal QT and + Normal MD ECG [place]: + Normal ECG ST segments: + Normal ST segments ECG Findings: no PACs or no PVCs Comparison ECG Date: from (5/9/21) Change: no significant change MDM Narrative This patient is a 80-year-old female who comes in after falling. She may have had some confusion as well. She does have a history of having ischemic colitis as well as COPD and dementia. She is wearing a DNR bracelet and she confirms this to me as well. IV access was established and says that her breathing is not much worse than normal although she does appear mildly tachypneic so I did order albuterol neb. She has had this before according to her chart. I did order chest x-ray, EKG, CAT scan of her head and neck and multiple blood testing as well as blood cultures and a sepsis type work-up. She was reassessed frequently. When I go to recheck her her breathing seems to be better after receiving the neb but now she says she just does not feel well she has very nonspecific complaints is hard to pinpoint she then threw up a couple times. In light of this I also had a CAT scan of her abdomen. She was treated with IV fluids as well as broad-spectrum IV antibiotics. I talked her son at length. He said that she has been hospitalized about every month for the last 6 months with similar type symptoms he says that she gets antibiotics and fluids and gets better and he has had sepsis. In light of this I did also give her some IV Zosyn as well as several doses of IV Zofran. We are unable to get a CAT scan initially because she could not tolerate laying flat but with additional Zofran and fluids she was feeling better enough to do this. EKG does not suggest acute coronary syndrome or arrhythmia. Troponin is not elevated. There is no definite source for sepsis she may have a little bit of a colitis on CAT scan. She does have a metabolic encephalopathy and likely sepsis and I have consulted Dr. Griffith and his team to see her in the ER Continuous cardiac monitoring: An order was placed in EMR for continuous cardiac monitoring. The patient was noted to be in sinus tachycardia with a rate of 115 and poor baseline secondary to artifact Impression & Plan Sepsis, Fall, Head trauma, SOB (shortness of breath), Diarrhea, Nausea & vomiting, Encephalopathy, Bronchiectasis Discharge Plan Visit Data Chief Complaint: Illness ED Provider: Ramez Hernandez Discharge Problem: Sepsis, Fall, Head trauma, SOB (shortness of breath), Diarrhea, Nausea & vomiting, Encephalopathy, Bronchiectasis Patient Disposition: Admitted As Inpatient Discharge Instructions Interventions: ED Discharge Assessment Last Done: 12/15/20 22:35
[2020-12-15 19:12] LABS: Partial Thromboplastin Time 25.4 Seconds (21.0-31.0); Prothrombin Time 9.9 Seconds (9.0-12.0)
[2020-12-15 19:22] LABS: Basophils # (auto) 0.02 K/uL (0-0.2); Basophils % (auto) 0.2 %; Eosinophils # (auto) 0.16 K/uL (0-0.5); Eosinophils % (auto) 1.2 %; Hematocrit (blood only) 35.9 % (37-47); Immature Granulocytes # (auto) 0.02 K/uL (0.00-0.02); Immature Granulocytes % (auto) 0.2 %; Lymphocytes # (auto) 1.22 K/uL (1.2-3.4); Lymphocytes % (auto) 9.5 %; Mean Corpuscular Hemoglobin 27.4 pg (25-34); Mean Corpuscular Hgb Conc 30.6 g/dL (32-36); Mean Corpuscular Volume 89.5 fL (80-100); Mean Platelet Volume 10.4 fL (7.4-10.4); Monocytes # (auto) 0.73 K/uL (0.11-0.59); Monocytes % (auto) 5.7 %; Neutrophils # (auto) 10.71 K/uL (1.4-6.5); Neutrophils % (auto) 83.2 %; Platelet Count 363 K/uL (130-400); RDW Coefficient of Variation 15.1 % (11.5-14.5); RDW Standard Deviation 49.9 fL (36.4-46.3); Red Blood Count 4.01 M/uL (4.2-5.4); White Blood Count 12.86 K/uL (4.8-10.8)
[2020-12-15 19:29] LABS: Alanine Aminotransferase 29 U/L (12-78); Albumin Level 3.9 gm/dl (3.4-5.0); Aspartate Aminotransferase 20 U/L (15-37); Blood Urea Nitrogen 29 mg/dl (7-18); Calcium 8.6 mg/dl (8.5-10.1); Carbon Dioxide 29 mmol/L (21-32); Chloride 105 mmol/L (98-107); Est GFR (African American) 50.6 ml/min; Est GFR (Non-African American) 43.7 ml/min; Glucose 100 mg/dl (70-99); Magnesium 2.2 mg/dl (1.8-2.4); Potassium 4.1 mmol/L (3.5-5.1); Sodium 137 mmol/L (136-145)
[2020-12-15 19:34] LABS: Albumin Globulin Ratio 0.9 (0.9-2); Alkaline Phosphatase 102 U/L (45-117); Bilirubin,Total 0.2 mg/dl (0.2-1); Globulin 4.4 gm/dl (2.5-4.0); NT Pro B Type Natriuretic Pept 217 pg/ml (0-1800); Total Protein 8.4 gm/dl (6.4-8.2); Troponin I < 0.015 ng/ml (0-0.045)
--- NOTE | 2020-12-15 19:47 | XRay Report ---
XR chest 1V portable HISTORY: 80 years-old Female sob, fall acute shortness of breath status post fall COMPARISON: 10/10/2020 and chest radiograph, CT cervical spine 10/10/2020 TECHNIQUE: Portable AP view the chest FINDINGS: Cardiac mediastinal and hilar silhouettes are unchanged. The patient is mildly rotated. Extensive chr onic reticular nodular opacities with suggested bronchiectasis and hyperinflation, unchanged from com parison. No pneumothorax, pleural effusion, airspace consolidation or overt pulmonary edema. Degenera tive changes of the shoulders and spine. IMPRESSION: Chronic findings as above without acute process. ACT 112: Negative or not required by law. The above report was generated using voice recognition software. It may contain grammatical, syntax o r spelling errors. Electronically signed by: Leonel Angeles M.D. 12/15/2020 7:46 PM
[2020-12-15] MEDS ORDERED: ONDANSETRON INJ 2 MG/ML 2 ML VIAL IV STA ×2 (19:48→21:13)
[2020-12-15] MEDS ORDERED: SODIUM CHLORIDE 0.9% 1000ML 1,000 ML IV SCH (20:00)
[2020-12-15] MEDS ORDERED: PIPERACILL/TAZOBAC CONSULT ACTIVE PRN ×3 (21:13→22:56)
[2020-12-15] MEDS ORDERED: PIPERACILLIN/TAZOBACTAM 4.5 GM/120 ML BAG IV ONE (21:13)
[2020-12-15] MEDS ORDERED: SODIUM CHLORIDE 0.9% 1000ML 500 ML IV ONE (21:14)
--- NOTE | 2020-12-15 22:11 | History & Physical Report ---
Date of Service December 15, 2020 Assessment & Plan (1) Fall: Plan: No pain with palpation to spine, head, or hips and shoulders - CT head evaluate for intracranial bleed with nausea and vomitting - Neuro checks q4- any change obtain stat non-con head - Likely related to hypovolemia and infectious etiology - Fall precautions on floor (2) Sepsis: Plan: SIRS- 2 Qsofa 1 - Presumed intraabdominal source- Infective colitis vs. Cdiff vs ischemic - CXR no acute process - Continue with LR at 90 ml/ hr - 1.5 liters crystalloid in EMD - Vancomycin oral and IV Zosyn - BLood, Urine, and stool cultures pending (3) Diarrhea: Plan: Acute patient with history of recent Cdiff colitis and s/p antibiotics for UTI treatment per the son last month - R/o cdiff- gene and toxin pending - will start on oral Vancomycin 125q6 - Lactate normal, however CT of abdomen pending although was done without contrast - no abdominal pain with palpation (4) Encephalopathy: Plan: Metabolic encephalopathy- hypovolemia/sepsis - Support as above - follow clinical course in response to hydration and IV ABX overnight (5) Nausea & vomiting: Plan: Supportive care keep NPO for now - suspcion for infective abominal source for her symptomatology - Zofran - IVF until able to tolerate oral - Zosyn for possible colitis (6) Bronchiectasis: Plan: Chronic stable - Continue inhalers- may need changed to nebulizers if unable to cognitively use (7) Hypothyroid: Plan: Continue synthroid (8) Depression: Plan: Continue History of Present Illness Primary Care Provider: [place] [facility] 80 [place] with past medical history of: Bronchiectasis, COPD, C-Diff, UTI, Sepsis, Depression, Hypothyroidism. Patient comes to the [facility] today following a fall at the [place], patient does not recall if she hit her head or not. Patient has also been having nausea with vomiting, and continues to have multiple loose stools a day per her report and son. Patient was at [place] about 5 weeks ago for urinary sepsis per the son. She was admitted in October for C-Diff colitis. The patient is fatigued and lethargic appearing but answering questions to the best of her ability. She has received 1.5 liters of crystalloid in the EMD and continues to get her nausea and vomiting controlled to be able to get advanced imaging done. Patient is not febrile, but does endorse fatigue, bloating, diarrhea. Her son is present at the bedside and is able to endorse that she just can't seem to get healthy with recurrent infections and antibiotics. Patient will be admitted will retest for Cdiff and cover for now, and continue to work up her infectious symptoms. Continue with LR resuscitation, Oral Vancomycin, Zosyn for presumed abdominal source at this time. Allergies Allergy/AdvReac Type Severity Reaction Status Date / Time dichloralphenazone AdvReac Severe angina and Unverified 10/10/20 07:55 [From Midrin] hypertension isometheptene [From Midrin] AdvReac Severe angina and Unverified 10/10/20 07:55 hypertension verapamil AdvReac Severe angina and Unverified 10/10/20 07:55 hypertension erythromycin base AdvReac Unknown Unknown Unverified 10/10/20 07:55 Home Medications Medication Instructions Recorded Confirmed Type acetaminophen 500 mg tablet 1,000 mg PO HS 03/07/20 10/10/20 History (Tylenol Extra Strength) azelastine 137 mcg (0.1 %) nasal 2 spray INTRANASAL BIDM 03/07/20 10/10/20 History spray aerosol budesonide-formoterol HFA 160 2 puff INHALATION BID 03/07/20 10/10/20 History mcg-4.5 mcg/actuation aerosol inhaler (Symbicort) clonazepam 0.5 mg tablet 0.5 mg PO HS 03/07/20 10/10/20 History levothyroxine 112 mcg tablet 112 mcg PO QAM 03/07/20 10/10/20 History omeprazole magnesium 20 mg 20 mg PO DAILYBB 03/07/20 10/10/20 History tablet,delayed release (Prilosec OTC) tiotropium bromide 18 mcg capsule 1 cap INHALATION QAM 03/07/20 10/10/20 History with inhalation device (Spiriva with HandiHaler) aspirin 81 mg tablet,delayed 81 mg PO QAM 10/10/20 10/10/20 History release bupropion HCl 150 mg 24 hr tablet, 150 mg PO QAM 10/10/20 10/10/20 History extended release calcium carbonate 200 mg calcium 200 mg PO QDD 10/10/20 10/10/20 History (500 mg) chewable tablet (Calcium Antacid) cholecalciferol (vitamin D3) 50 50 mcg PO QAM 10/10/20 10/10/20 History mcg (2,000 unit) tablet magnesium oxide 400 mg PO QDD 10/10/20 10/10/20 History potassium chloride 20 mEq 20 meq PO QAM 10/10/20 10/10/20 History tablet,extended release sertraline 100 mg tablet 100 mg PO QAM 10/10/20 10/10/20 History Past Med/Surg History Medical History Bronchiectasis Confusion COPD (chronic obstructive pulmonary disease) Dementia Depression Double vision Fall Hypothyroid Leukocytosis Migraine Transient cerebral ischemia Surgical History History of tonsillectomy History of tubal ligation Family History Other Family history non-contributory Social History Smoking Status: Former smoker Hx Alcohol Use: No Hx Substance Use: No Preferred Language: Bengali Communication Ability: Effective Squad Sergeant Required: No Beliefs That Will Affect Care: None marital status: / Current Living Situation: Alone and Personal Care Facility Feels Safe at Home: Yes Safety Concerns: Feels Safe At This Time Assistive Devices: Oxygen - Continuous Review of Systems Review of Systems: REVIEW OF SYSTEMS: Constitutional: No fever, sweats or chills Eyes: No diplopia, no worsening or blurred vision ENT: normal hearing, no trouble swallowing Respiratory: No cough, sputum, dyspnea at on exertion Cardiovascular: No chest pain, tightness or palpitations Abdomen: (+) pain, nausea, vomiting, diarrhea, NO constipation Musculoskeletal: No joint pain, calf pain, swelling Neurologic: No weakness, numbness/tingling, or balance problems Psychiatric: (+) depression, No anxiety Skin: No rash or itch Physical Exam Physical Exam: PHYSICAL EXAM: General: awake with verbal discussion, frail, fatigued Head: Normocephalic, atraumatic, ENT: PERRL, EOMI, no pharyngeal exudate, mucous membranes moist Neuro: AAO x 3, speech clear and appropriate, strength intact bilaterally 5/5, sensation intact and equal all extremities and dermatomes, no cervical or thoracic tenderness Chest: equal rise and fall of the chest, no accessory muscle use, no heaves or thrills, scattered rhonchi with inspiratory wheeze, on room air, Cardiac: Regular rate and rhythm, telemetry reviewed- NSR tachycardic, skin warm dry, cap refill <3 seconds, peripheral pulses +2 no JVD, no murmur, poor skin turgor GI: NABS x 4 quadrants, soft, nontender to palpation, no rebound, guarding or tenderness, tympanic on percussion : Spontaneously voiding, void pending, Extremities: Normal inspection, no peripheral edema or erythema, calfs nontender to palpation Psych: fatigued appearing Skin: no rash or erythema Results & Data Results & Data ([facility]) Vital Signs (Past 12 Hours) Vital Signs Temp Pulse Pulse Resp BP BP Pulse Ox 12/15/20 20:00 105 H 16 150/90 H 98 12/15/20 19:33 120 H 40 H 95 12/15/20 19:30 120 H 40 H 154/90 H 95 12/15/20 19:11 118 H 30 H 95 12/15/20 18:36 37.7 C H 114 H 30 H 154/90 H 98 12/15/20 18:21 115 H 32 H 154/90 H 97 Laboratory Results Abnormal lab results 12/15/20 12/15/20 Range/Units 18:50 18:50 WBC 12.86 H (4.8-10.8) K/uL RBC 4.01 L (4.2-5.4) M/uL Hgb 11.0 L (12.0-16.0) g/dL Hct 35.9 L (37-47) % MCHC 30.6 L (32-36) g/dL RDW Std Deviation 49.9 H (36.4-46.3) fL RDW Coeff of Wilver 15.1 H (11.5-14.5) % Neut # (Auto) 10.71 H (1.4-6.5) K/uL Hall # (Auto) 0.73 H (0.11-0.59) K/uL BUN 29 H (7-18) mg/dl BUN/Creatinine Ratio 24.0 H (10-20) Glucose 100 H (70-99) mg/dl Total Protein 8.4 H (6.4-8.2) gm/dl Globulin 4.4 H (2.5-4.0) gm/dl Diagnostic Findings Chest X-Ray 12/15/20 18:42 XR chest 1V portable HISTORY: 80 years-old Female sob, fall acute shortness of breath status post fall COMPARISON: 10/10/2020 and chest radiograph, CT cervical spine 10/10/2020 TECHNIQUE: Portable AP view the chest FINDINGS: Cardiac mediastinal and hilar silhouettes are unchanged. The patient is mildly rotated. Extensive chronic reticular nodular opacities with suggested bronchiectasis and hyperinflation, unchanged from comparison. No pneumothorax, pleural effusion, airspace consolidation or overt pulmonary edema. Degenerative changes of the shoulders and spine. IMPRESSION: Chronic findings as above without acute process. Electronically signed by: Leonel Angeles M.D. 12/15/2020 7:[address] 12/15/20 18:42 CT SCAN OF THE BRAIN WITHOUT IV CONTRAST CLINICAL HISTORY: Fall. Change in mental status. COMPARISON STUDY: CT of the brain dated 10/10/2020. TECHNIQUE: Unenhanced axial CT scan of the brain is performed from the vertex to the skull base. A dose lowering technique was utilized adhering to the principles of ALARA. The patient was scanned twice due to motion artifact. The examination is motion compromised. FINDINGS: Brain parenchyma: There are age-related involutional changes noting mild to moderate subcortical and periventricular microangiopathic change. There is no hemorrhage, mass effect, or evidence of acute territorial ischemia by CT criteria. Hendricks-white matter differentiation is preserved. No extra-axial fluid collection is seen. Ventricles, sulci, cisterns: Prominent secondary to involutional change. Intracranial vasculature: There is atherosclerotic calcification of the cavernous carotid and vertebral arteries. Calvarium: The skeletal structures are osteopenic. No depressed calvarial fracture is identified. Sinuses and mastoids: The paranasal sinuses are clear. The mastoid air cells are well pneumatized. Orbits: The bony orbits are grossly intact. There are bilateral ocular lens implants. IMPRESSION: There is no hemorrhage, mass effect, or evidence of acute territorial ischemia by CT criteria noting a motion compromised examination. Electronically signed by: Riaz Thacker M.D. 12/15/2020 10:16 PM Medications Administered Home Medications acetaminophen 500 mg tablet (Tylenol Extra Strength) 1,000 mg PO HS 03/07/20 [History Confirmed 10/10/20] azelastine 137 mcg (0.1 %) nasal spray aerosol 2 spray INTRANASAL BIDM 03/07/20 [History Confirmed 10/10/20] budesonide-formoterol HFA 160 mcg-4.5 mcg/actuation aerosol inhaler (Symbicort) 2 puff INHALATION BID 03/07/20 [History Confirmed 10/10/20] clonazepam 0.5 mg tablet 0.5 mg PO HS 03/07/20 [History Confirmed 10/10/20] levothyroxine 112 mcg tablet 112 mcg PO QAM 03/07/20 [History Confirmed 10/10/20] omeprazole magnesium 20 mg tablet,delayed release (Prilosec OTC) 20 mg PO DAILYBB 03/07/20 [History Confirmed 10/10/20] tiotropium bromide 18 mcg capsule with inhalation device (Spiriva with HandiHaler) 1 cap INHALATION QAM 03/07/20 [History Confirmed 10/10/20] aspirin 81 mg tablet,delayed release 81 mg PO QAM 10/10/20 [History Confirmed 10/10/20] bupropion HCl 150 mg 24 hr tablet, extended release 150 mg PO QAM 10/10/20 [History Confirmed 10/10/20] calcium carbonate 200 mg calcium (500 mg) chewable tablet (Calcium Antacid) 200 mg PO QDD 10/10/20 [History Confirmed 10/10/20] cholecalciferol (vitamin D3) 50 mcg (2,000 unit) tablet 50 mcg PO QAM 10/10/20 [History Confirmed 10/10/20] magnesium oxide 400 mg PO QDD 10/10/20 [History Confirmed 10/10/20] potassium chloride 20 mEq tablet,extended release 20 meq PO QAM 10/10/20 [History Confirmed 10/10/20] sertraline 100 mg tablet 100 mg PO QAM 10/10/20 [History Confirmed 10/10/20] Active Medications Sodium Chloride (Nss 1000ml) 1,000 mls @ 125 mls/hr IV .Q8H DAWIT Stop: 01/14/21 19:59 Last Admin: 12/15/20 19:57 Dose: 125 mls/hr Documented by: Miscellaneous Information (Piperacill/Tazobac Consult Active) 1 ea N/A UD PRN PRN Reason: Consult Stop: 01/14/21 21:12 Sodium Chloride (Nss 1000ml) 1,000 mls @ 125 mls/hr IV .Q8H DAWIT Stop: 01/14/21 19:59 Last Admin: 12/15/20 19:57 Dose: 125 mls/hr Documented by: [id number] Discontinued Medications Albuterol (Albuterol 0.083% Nebu Soln 3 Ml Vial) 2.5 mg NEB NOW STA Stop: 12/15/20 18:48 Last Admin: 12/15/20 19:10 Dose: 2.5 mg Documented by: [id number] Sodium Chloride (Nss 1000ml) 250 mls @ 999 mls/hr IV .Q16M ONE Stop: 12/15/20 19:01 Last Admin: 12/15/20 19:07 Dose: 999 mls/hr Documented by: [id number] Piperacillin Sod/Tazobactam Sod (Zosyn) 4.5 gm in 120 mls @ 240 mls/hr IV NOW ONE Stop: 12/15/20 21:42 Last Admin: 12/15/20 21:34 Dose: 240 mls/hr Documented by: [id number] Sodium Chloride (Nss 1000ml) 500 mls @ 999 mls/hr IV .Q31M ONE Stop: 12/15/20 21:44 Last Admin: 12/15/20 21:35 Dose: 999 mls/hr Documented by: [id number] Ondansetron HCl (Ondansetron Inj 2 Mg/Ml 2 Ml Vial) 4 mg IV NOW STA Stop: 12/15/20 19:49 Last Admin: 12/15/20 19:56 Dose: 4 mg Documented by: [id number] Ondansetron HCl (Ondansetron Inj 2 Mg/Ml 2 Ml Vial) 4 mg IV NOW STA Stop: 12/15/20 21:14 Last Admin: 12/15/20 21:25 Dose: 4 mg Documented by: [id number] ECG Additional Comments: Sinus tachycardia Possible Left atrial enlargement Borderline ECG Code Status & VTE Plan Code Status CODE: FULL VTE: SCDs, Chemical prophylaxis pending imaging results VTE Prophylaxis Plan VTE Prophylaxis will be ordered: Yes Supervising Physician Co-Signing Physician Notes Attending addendum: I have physically seen this patient, have supervised the FUNMILAYO's activities, and agree with the H&P unless as otherwise noted. Assessment and Plan: Sepsis/diarrhea- History of C. difficile colitis. Other possibilities include ischemic, infective. N.p.o. LR 90 mils per hour Vancomycin to 50 mg p.o. 4 times daily Follow all cultures blood, urine and stool Stool for C. difficile Metabolic encephalopathy- Secondary to presumptive C. difficile colitis causing diarrhea and dehydration with hypovolemia and sepsis Treat as above and follow clinical examination Remaining orders and notations as noted PG Care Time/CCT Total # of Minutes Spent Total Time Spent with Patient: Total time spent is greater than 50% in coordination of care (as documented) at patient's floor/unit and/or counseling patient: Coding Level of Care Code 51911 Initial Inpt Care Lvl 3 Diagnoses Fall W19.XXXA Diarrhea R19.7 Bronchiectasis J47.9 Hypothyroid E03.9 Hypothyroidism type: unspecified Depression F32.9 Active/Remission status: remission status unspecified Depression Type: major depressive disorder Major depression recurrence: unspecified whether recurrent Nausea & vomiting R11.2 Sepsis A41.9 Encephalopathy G93.40 (1) Depression Active/Remission status: remission status unspecified Depression Type: major depressive disorder Major depression recurrence: unspecified whether recurrent Qualified Code(s): F32.9 - Major depressive disorder, single episode, unspecified (2) Hypothyroid Hypothyroidism type: unspecified Qualified Code(s): E03.9 - Hypothyroidism, unspecified
--- NOTE | 2020-12-15 22:18 | CT Scan Report ---
CT SCAN OF THE BRAIN WITHOUT IV CONTRAST CLINICAL HISTORY: Fall. Change in mental status. COMPARISON STUDY: CT of the brain dated 10/10/2020. TECHNIQUE: Unenhanced axial CT scan of the brain is performed from the vertex to the skull base. A do se lowering technique was utilized adhering to the principles of ALARA. The patient was scanned twice due to motion artifact. The examination is motion compromised. FINDINGS: Brain parenchyma: There are age-related involutional changes noting mild to moderate subcortical and periventricular microangiopathic change. There is no hemorrhage, mass effect, or evidence of acute t erritorial ischemia by CT criteria. Hendricks-white matter differentiation is preserved. No extra-axial fl uid collection is seen. Ventricles, sulci, cisterns: Prominent secondary to involutional change. Intracranial vasculature: There is atherosclerotic calcification of the cavernous carotid and vertebr al arteries. Calvarium: The skeletal structures are osteopenic. No depressed calvarial fracture is identified. Sinuses and mastoids: The paranasal sinuses are clear. The mastoid air cells are well pneumatized. Orbits: The bony orbits are grossly intact. There are bilateral ocular lens implants. IMPRESSION: There is no hemorrhage, mass effect, or evidence of acute territorial ischemia by CT crit olinda noting a motion compromised examination. ACT 112: Negative or not required by law. Electronically signed by: Riaz Thacker M.D. 12/15/2020 10:16 PM
--- NOTE | 2020-12-15 22:22 | CT Scan Report ---
CT SCAN OF THE CERVICAL SPINE CLINICAL HISTORY: Trauma. Fall. COMPARISON STUDY: CT of the cervical spine dated 10/10/2020. TECHNIQUE: CT scan of the cervical spine is performed from the skull base to the upper thoracic spine . Images are reviewed in the axial, sagittal, and coronal planes. IV contrast was not administered fo r this examination. A dose lowering technique was utilized adhering to the principles of ALARA. FINDINGS: Skeletal structures: The skeletal structures are osteopenic. There is no evidence of fracture or subl uxation involving the cervical spine. Vertebral body height is maintained. There is minimal anterolis thesis at C4-C5 and minimal retrolisthesis at C5-C6. Alignment is otherwise preserved. There is strai ghtening of the cervical lordosis. Anterior osteophytes are seen throughout. The odontoid process and lateral masses are intact. The atlantoaxial articulation is preserved noting advanced productive deg enerative change. The spinous processes appear intact. There is a minimal chronic superior endplate c ompression deformity of T1. There is moderate multilevel cervical spondylosis. Uncovertebral and face t arthropathy contribute to neural foraminal stenosis at several levels. Intervertebral discs: Moderate disc space narrowing is noted at C5-C6. Mild disc space narrowing is s een at the remaining cervical levels. Central canal: Posterior disc osteophyte complexes at C4-C5, C5-C6, and C6-C7 may contribute to mild acquired compromise of the central canal. Soft tissues: The prevertebral and paraspinous soft tissues are within normal limits. There is athero sclerotic calcification of the carotid bulbs. The thyroid gland is atrophic. Calvarium: The visualized calvarium at the skull base appears intact. Brain parenchyma: Partially visualized brain parenchyma at the skull base is within normal limits not ing age-related involutional change. Sinuses and mastoids: The visualized paranasal sinuses are clear. The mastoid air cells are well pneu matized. Lung apices: Fibrotic change is noted at the apices. IMPRESSION: 1. There is no evidence of fracture or subluxation involving the cervical spine. 2. Osteopenia and spondylotic change as above. ACT 112: Negative or not required by law. Electronically signed by: Riaz Thacker M.D. 12/15/2020 10:21 PM
--- NOTE | 2020-12-15 22:36 | CT Scan Report ---
CT SCAN OF THE CHEST, ABDOMEN, AND PELVIS WITHOUT IV CONTRAST CLINICAL HISTORY: Trauma. Fall. Infection. COMPARISON STUDY: Chest x-ray dated 12/15/2020. Abdominal CT dated 10/10/2020. TECHNIQUE: Unenhanced CT scan of the chest, abdomen, and pelvis was performed from the thoracic inlet to the proximal femora. Images are reviewed in the axial, sagittal, and coronal planes. Note that th e examination is significantly suboptimal without oral and IV contrast. There is also significant mot ion artifact, as well as streak artifact from the arms which could not be elevated above the chest or abdomen.. A dose lowering technique was utilized adhering to the principles of ALARA. CT DOSE: 2560.03 mGy.cm FINDINGS: CHEST: Thyroid: Atrophic. Thoracic aorta: The thoracic aorta is normal in caliber and demonstrates standard 3-vessel arch anato my. Heart: The heart is normal in size and without pericardial effusion. The coronary arteries are densel y calcified. Lungs and pleural spaces: Evaluation of the lung parenchyma is compromised by motion artifact. There is no lobar consolidation, pleural effusion, or pneumothorax. Fat-containing Bochdalek hernias are se en at both lung bases. Secretions are noted within the trachea and mainstem bronchi. Fibrotic change is present throughout both lungs, greatest in the right middle lobe. Mild bronchiectasis is noted in the lower lobes and the right middle lobe. Numerous centrilobular nodules are consistent with chronic lung disease. Foci of tree-in-bud nodularity are scattered throughout both lungs. A 5 mm left lower lobe pulmonary nodule seen on image #162. Diffuse peribronchial thickening is observed. Mediastinum: There is no mediastinal lymphadenopathy. Rita: Not well assessed without IV contrast. Axillae: There is no axillary lymphadenopathy. Bony thorax: The skeletal structures are osteopenic. No lytic or blastic lesions are identified. Soft tissues: The patient is cachectic. ABDOMEN AND PELVIS: Liver: The unenhanced liver is normal in size, contour, and attenuation. There is no intra- or extrah epatic biliary ductal dilatation. Gallbladder: Unremarkable. Spleen: Normal in size and attenuation. Pancreas: The unenhanced pancreas is moderately atrophic and grossly unremarkable. Adrenal glands: Unremarkable. Kidneys: The unenhanced kidneys demonstrate cortical atrophy and are without hydronephrosis. No renal calculi are identified. There is no evidence of contour deforming mass lesion. Abdominal vasculature: The abdominal aorta is normal in course and caliber noting mild to moderate at herosclerotic calcification. Bowel: There is rectosigmoid fecal retention. No bowel obstruction is identified. Mild wall thickenin g is suggested throughout the colon with pericolonic infiltration. This is greatest involving the lef t colon. The appendix is well-visualized and normal. Peritoneum: There is no intraperitoneal free air or abdominal ascites. There is a fat-containing umbi lical hernia. Lymphadenopathy: None. Pelvic viscera: The bladder is distended but otherwise normal in appearance. The uterus and adnexa ar e normal as visualized. Skeletal structures: The skeletal structures are osteopenic. The lumbosacral spine, bony pelvis, and proximal femora appear intact. There is mild lumbosacral spondylosis. No lytic or blastic lesions are seen. IMPRESSION: 1. Significantly suboptimal examination without oral and IV contrast. The examination is also comprom ised by streak and motion. 2. There is no acute posttraumatic intrathoracic abnormality. 3. There is no lobar consolidation, pleural effusion, or pneumothorax. 4. Fibrotic change is present throughout both lungs with scattered centrilobular nodules as detailed above. The appearance suggests a chronic infectious/inflammatory process such as atypical mycobacteri um. Nonemergent/outpatient pulmonology follow-up is recommended. 5. There is a 5 mm indeterminant pulmonary nodule in the left lower lobe. This is likely inflammatory . A follow-up chest CT in 3 months time is recommended for reassessment. 6. Scattered foci of tree-in-bud nodularity throughout both lungs are likely on an infectious/inflamm atory basis and clinical correlation will be required. 7. There is no evidence of solid organ injury in the abdomen or pelvis on this unenhanced examination . 8. Findings suggest a nonspecific colitis of the left colon. Clinical correlation will be required. 9. Bladder distention. 10. Rectosigmoid fecal retention. 11. Additional findings as above. ACT 112: Positive. There are findings on this exam that require communication between the performing entity and the patient following Patient Test Result Information Act ([place] Act 112) guidelines. Electronically signed by: Riaz Thacker M.D. 12/15/2020 10:34 PM
[2020-12-15] MEDS ORDERED: PANTOprazole 40 MG in SYRINGE 0 ML IV ONE (22:45)
[2020-12-15] MEDS ORDERED: ONDANSETRON INJ 2 MG/ML 2 ML VIAL IV PRN (22:56)
[2020-12-15] MEDS ORDERED: clonazePAM 0.5 MG TAB PO STA (23:32)
[2020-12-16] MEDS: LACTATED RINGER'S 1,000 ML IV SCH ×3 (00:17→22:39)
[2020-12-16] MEDS: VANCOMYCIN HCL 125 MG/2.5ML SOLN PO SCH ×2 (00:29→04:51)
[2020-12-16] MEDS: RASPBERRY SYRUP 5 ML UDP PO SCH ×2 (00:29→04:51)
[2020-12-16] MEDS ORDERED: PIPERACILLIN/TAZOBACTAM 3.375 GM in DEXTROSE 5% 100 ML IV SCH (04:00)
[2020-12-16] MEDS ORDERED: ACETAMINOPHEN 325 MG TAB PO PRN (04:47)
[2020-12-16] MEDS: LEVOTHYROXINE SODIUM 112 MCG TABLET PO SCH (04:51)
[2020-12-16 06:15] LABS: Cdiff Antigen Positive
[2020-12-16 06:16] LABS: Cdiff Toxin A+B Positive Cdiff Toxin (Negative)
[2020-12-16] MEDS ORDERED: NON-FORMULARY MEDICATION (Azelastine 137 mcg (0.1 %) Aerosol,Spray) INTNAS SCH (08:00)
[2020-12-16 08:20] LABS: BUN Creatinine Ratio 20.1 (10-20); Calcium 8.4 mg/dl (8.5-10.1); Creatinine Clr Calc Pharmacy 29.3 ml/min; Est GFR (African American) 50.1 ml/min; Est GFR (Non-African American) 43.3 ml/min; Magnesium 1.8 mg/dl (1.8-2.4); Potassium 3.7 mmol/L (3.5-5.1)
[2020-12-16 08:25] LABS: Hematocrit (blood only) 32.8 % (37-47); Mean Corpuscular Hgb Conc 30.5 g/dL (32-36); Mean Corpuscular Volume 88.6 fL (80-100); Mean Platelet Volume 10.2 fL (7.4-10.4); Platelet Count 301 K/uL (130-400); RDW Coefficient of Variation 14.8 % (11.5-14.5); RDW Standard Deviation 48.5 fL (36.4-46.3); White Blood Count 23.82 K/uL (4.8-10.8)
[2020-12-16 08:30] LABS: Basophils # (auto) 0.02 K/uL (0-0.2); Basophils % (auto) 0.1 %; Dohle Bodies 1+; Immature Granulocytes # (auto) 0.07 K/uL (0.00-0.02); Immature Granulocytes % (auto) 0.3 %; Lymphocytes # (auto) 1.32 K/uL (1.2-3.4); Lymphocytes % (auto) 5.5 %; Monocytes # (auto) 1.81 K/uL (0.11-0.59); Monocytes % (auto) 7.6 %; Neutrophils % (auto) 86.5 %
[2020-12-16] MEDS ORDERED: MAGNESIUM SULFATE / D5W 1 GM/100 ML BAG IV ONE (08:42)
[2020-12-16] MEDS ORDERED: UMECLIDINIUM BROMIDE 62.5MCG/BLISTER 7 PUFFS/INHALER INH SCH (09:00)
[2020-12-16] MEDS: buPROPion XL 150 MG TABCR PO SCH ×2 (09:25→09:36)
[2020-12-16] MEDS: POTASSIUM CHLORIDE CRTAB 20 MEQ TABCR PO STA ×2 (09:25→09:36)
[2020-12-16] MEDS: SERTRALINE HCL 100 MG TABLET PO SCH (09:25)
[2020-12-16] MEDS: FIDAXOMICIN 200 MG TAB PO SCH ×2 (09:25→20:40)
[2020-12-16] MEDS: ASPIRIN 81 MG ECTAB PO SCH ×2 (09:25→09:35)
[2020-12-16] MEDS: FLUTICASONE/VILANTEROL 200/25MCG 14 PUFFS/INHALER INH SCH (09:25)
[2020-12-16] MEDS: PANTOprazole 40 MG in SYRINGE 0 ML IV SCH (10:57)
[2020-12-16] MEDS ORDERED: LACTATED RINGER'S 1,000 ML IV ONE (11:18)
[2020-12-16] MEDS ORDERED: CALCIUM GLUCONATE 10% 1,000 MG in SODIUM CHLORIDE 0.9% 50 ML IV ONE (11:42)
[2020-12-16] MEDS ORDERED: VANCOMYCIN HCL 250 MG/5 ML SOLN PO SCH (12:00)
--- NOTE | 2020-12-16 12:00 | Hospitalist Progress Note ---
Date of Service December 16, 2020 Assessment & Plan (1) Sepsis: Plan: SIRS- 2 Qsofa 1 - intraabdominal source- Infective CDIFF colitis - CXR no acute process - Continue with LR at 90 ml/ hr - 1.5 liters crystalloid in EMD - 1Liter crystalloid overnight - BLood, Urine, pending -WBC count up to 23k today - CDIFF toxin and gene positive- changed to Dificid primary for CDIFF - COntinue Zosyn - Maps this morning 56- bolus 1 liter of LR now- follow hemodynamics - might need to increase maintenance fluid to keep up with her stool loss - Urine is incontinent and mixed with stool, but had 2-3 voids last night - Lactate pending - Replace 1GM calcium gluconate for hypocalcemia- my help improve vascular tone (2) C. difficile colitis: Plan: as above, CT abd/pel with colitis present treat with Dificid for 3rd recurrence is allergic/adverse reaction to erythromycin but safe to trial Dificid as is minimally absorbed (3) Diarrhea: Plan: secondary to C. diff colitis as above (4) Fall: Plan: No pain with palpation to spine, head, or hips and shoulders - Neuro checks q4- any change obtain stat non-con head - Likely related to hypovolemia and infectious etiology - Fall precautions on floor * No changes neurologically improved today. Continue to follow clinical neuro exams (5) Encephalopathy: Plan: Metabolic encephalopathy- hypovolemia/sepsis - Support as above - follow clinical course in response to hydration and IV ABX overnight - improved overnight (6) Nausea & vomiting: Plan: now resolved-advanced diet - Zofran - IVF until able to tolerate oral - no vomiting overnight (7) Bronchiectasis: Plan: Chronic stable - Continue inhalers- - Combivent nebs secondary to not having the cognitive function to use her spiriva at this time - Pulmicort Respules BID instead of Symbicort for same reasoning as above (8) Hypothyroid: Plan: Continue synthroid TSH normal recently (9) Depression: Plan: Continue sertraline, clonazepam must be taken at night as per son or else she has hallucinations (10) Pulmonary nodule: Plan: 5mm LLL nodule and tree in bud opacities on Chest CT repeat CT scan in 3 months to ensure resolution (11) DVT prophylaxis: Plan: SCDs Dispo-continued stay Discussed care with son on phone and at bedside Admission and Anticipated Discharge Date Admission Date: December 15, 2020 Supervising Physician Co-Signing Physician Notes INTERPRETER DEAF Supervision note: I have personally seen and examined the patient and discussed and verified the avelar points of the history and physical along with the plan with KANIKA Padron with the following exceptions and/or additions: Pt mentating better, knows where she is, name. No abd pain, no CP or SOB.No bleeding in stools. Discussed her care with son at bedside at length Continue dificid follow CBC, CMP in AM Subjective 80 YOF HD #1 following admission for sepsis with intraabdominal source as primary suspected. Her C-diff toxin and gene are positive this morning and she was changed from oral Vancomycin to DIFICID. This is a reoccurrence of CDIff infection for her. She remains on Zosyn as well. Patient's mental status is improved this morning as she is much more alert and conversive than she was on admission. She is noted to by Hypotensive this morning and had 3 large liquid BM last night. She has also not had any further vomiting. There was concern that she was pocketing her pills this morning so will have HEALTH CARE COACH see the patient and adjust therapy as warrented. Will send bio-markers, provide bolus and re- evaluate patient's hemodynamics. Her abdomen remains soft and nontender throughout she is perfusing well and no change in HR. Review of Systems Review of Systems: REVIEW OF SYSTEMS: Constitutional: No fever, sweats or chills Eyes: No diplopia, no worsening or blurred vision ENT: normal hearing, no trouble swallowing Respiratory: No cough, sputum, dyspnea at on exertion Cardiovascular: No chest pain, tightness or palpitations Abdomen: (+) pain, nausea, vomiting, diarrhea, NO constipation Musculoskeletal: No joint pain, calf pain, swelling Neurologic: No weakness, numbness/tingling, or balance problems Psychiatric: (+) depression, No anxiety Skin: No rash or itch Physical Exam Physical Exam: PHYSICAL EXAM: General: awake with verbal discussion, frail, fatigued Head: Normocephalic, atraumatic, ENT: PERRL, EOMI, no pharyngeal exudate, mucous membranes moist Neuro: AAO x 3, speech clear and appropriate, strength intact bilaterally 5/5, sensation intact and equal all extremities and dermatomes, no cervical or thoracic tenderness Chest: equal rise and fall of the chest, no accessory muscle use, no heaves or thrills, scattered rhonchi with inspiratory wheeze, on room air, Cardiac: Regular rate and rhythm, telemetry reviewed- NSR tachycardic, skin warm dry, cap refill <3 seconds, peripheral pulses +2 no JVD, no murmur, poor skin turgor GI: NABS x 4 quadrants, soft, nontender to palpation, no rebound, guarding or tenderness, tympanic on percussion : Spontaneously voiding, void pending, Extremities: Normal inspection, no peripheral edema or erythema, calfs nontender to palpation Psych: fatigued appearing Skin: no rash or erythema Results & Data Results & Data ([facility]) Vital Signs (Past 12 Hours) Vital Signs Temp Pulse Pulse Resp BP Pulse Ox 12/16/20 11:42 36.6 C 101 H 20 81/44 L 100 12/16/20 07:53 37.3 C 101 H 19 91/50 L 100 12/16/20 07:00 105 H 12/16/20 05:15 37.4 C 100 12/16/20 04:08 38.4 C H 121 H 18 114/57 L 96 PG Care Time/CCT Total # of Minutes Spent Total Time Spent with Patient: Total time spent is greater than 50% in coordination of care (as documented) at patient's floor/unit and/or counseling patient: Coding Level of Care Code 41015 Subseq Hosp Care Lvl 3 Diagnoses Fall W19.XXXA Encounter type: initial encounter Sepsis A41.9 Sepsis acute organ dysfunction status: unspecified Sepsis type: sepsis due to unspecified organism Diarrhea R19.7 Diarrhea type: unspecified type Encephalopathy G93.40 Nausea & vomiting R11.2 Vomiting Intractability: non-intractable Vomiting type: unspecified Bronchiectasis J47.9 Bronchiectasis type: uncomplicated Hypothyroid E03.9 Hypothyroidism type: unspecified Depression F32.9 Active/Remission status: remission status unspecified Depression Type: major depressive disorder Major depression recurrence: unspecified whether recurrent C. difficile colitis A04.72 DVT prophylaxis Z29.9 Pulmonary nodule R91.1 (1) Depression Active/Remission status: remission status unspecified Depression Type: major depressive disorder Major depression recurrence: unspecified whether recurrent Qualified Code(s): F32.9 - Major depressive disorder, single episode, unspecified (2) Diarrhea Diarrhea type: unspecified type Qualified Code(s): R19.7 - Diarrhea, unspecified (3) Hypothyroid Hypothyroidism type: unspecified Qualified Code(s): E03.9 - Hypothyroidism, unspecified (4) Sepsis Sepsis acute organ dysfunction status: unspecified Sepsis type: sepsis due to unspecified organism Qualified Code(s): A41.9 - Sepsis, unspecified organism (5) Bronchiectasis Bronchiectasis type: uncomplicated Qualified Code(s): J47.9 - Bronchiectasis, uncomplicated (6) Nausea & vomiting Vomiting Intractability: non-intractable Vomiting type: unspecified Qualified Code(s): R11.2 - Nausea with vomiting, unspecified (7) Fall Encounter type: initial encounter Qualified Code(s): W19.XXXA - Unspecified fall, initial encounter
[2020-12-16] MEDS: ALBUT/IPRATROP 3MG/0.5MG NEB 3 ML VIAL NEB SCH ×2 (13:17→19:31)
[2020-12-16] MEDS ORDERED: LACTATED RINGER'S 500 ML IV ONE (13:47)
--- NOTE | 2020-12-16 13:51 | Electrocardiogram Report ---
Test Reason : Blood Pressure : / mmHG Vent. Rate : 117 BPM Atrial Rate : 117 BPM P-R Int : 192 ms QRS Dur : 090 ms QT Int : 296 ms P-R-T Axes : 064 002 075 degrees QTc Int : 412 ms Poor data quality, interpretation may be adversely affected Sinus tachycardia Possible Left atrial enlargement Borderline ECG When compared with ECG of 10-OCT-2020 06:03, Criteria for Anteroseptal infarct are no longer Present T wave inversion no longer evident in Anterior leads Confirmed by Dane Salas ([id number]) on 12/16/2020 1:50:56 PM Referred By: GIOVANNA Confirmed By:Mitchel Salas
[2020-12-16] MEDS: BUDESONIDE 0.25 MG/2 ML VIAL (PULMICORT) NEB SCH (19:31)
--- NOTE | 2020-12-16 19:35 | Billing Data ---
Date of Service December 16, 2020 Coding Level of Care Code 42942 Initial Inpt Care Lvl 3
[2020-12-16] MEDS: ACETAMINOPHEN 500 MG TAB PO SCH (20:48)
[2020-12-17] MEDS ORDERED: clonazePAM 0.5 MG TAB PO STA (00:31)
[2020-12-17] MEDS: ALBUT/IPRATROP 3MG/0.5MG NEB 3 ML VIAL NEB SCH ×3 (01:06→19:25)
[2020-12-17] MEDS: LEVOTHYROXINE SODIUM 112 MCG TABLET PO SCH (06:29)
[2020-12-17] MEDS: BUDESONIDE 0.25 MG/2 ML VIAL (PULMICORT) NEB SCH ×2 (07:37→19:25)
[2020-12-17] MEDS: SERTRALINE HCL 100 MG TABLET PO SCH (08:41)
[2020-12-17] MEDS: ASPIRIN 81 MG ECTAB PO SCH (08:41)
[2020-12-17] MEDS: buPROPion XL 150 MG TABCR PO SCH (08:41)
[2020-12-17] MEDS: FIDAXOMICIN 200 MG TAB PO SCH ×2 (08:41→20:25)
[2020-12-17 09:07] LABS: Basophils # (auto) 0.02 K/uL (0-0.2); Basophils % (auto) 0.1 %; Eosinophils # (auto) 0.09 K/uL (0-0.5); Eosinophils % (auto) 0.4 %; Hematocrit (blood only) 31.2 % (37-47); Hemoglobin 9.5 g/dL (12.0-16.0); Immature Granulocytes # (auto) 0.09 K/uL (0.00-0.02); Immature Granulocytes % (auto) 0.4 %; Lymphocytes # (auto) 1.03 K/uL (1.2-3.4); Lymphocytes % (auto) 4.9 %; Mean Corpuscular Hemoglobin 27.1 pg (25-34); Mean Corpuscular Hgb Conc 30.4 g/dL (32-36); Mean Corpuscular Volume 88.9 fL (80-100); Mean Platelet Volume 10.5 fL (7.4-10.4); Monocytes # (auto) 1.45 K/uL (0.11-0.59); Monocytes % (auto) 6.9 %; Neutrophils # (auto) 18.43 K/uL (1.4-6.5); Neutrophils % (auto) 87.3 %; Platelet Count 272 K/uL (130-400); RDW Coefficient of Variation 15.2 % (11.5-14.5); RDW Standard Deviation 49.6 fL (36.4-46.3); Red Blood Count 3.51 M/uL (4.2-5.4); White Blood Count 21.11 K/uL (4.8-10.8)
[2020-12-17 09:33] LABS: Alanine Aminotransferase 22 U/L (12-78); Albumin Level 2.4 gm/dl (3.4-5.0); Aspartate Aminotransferase 22 U/L (15-37); BUN Creatinine Ratio 21.6 (10-20); Bilirubin Direct < 0.1 mg/dl (0-0.2); Blood Urea Nitrogen 25 mg/dl (7-18); Calcium 8.3 mg/dl (8.5-10.1); Carbon Dioxide 27 mmol/L (21-32); Chloride 105 mmol/L (98-107); Creatinine Clr Calc Pharmacy 31.9 ml/min; Est GFR (African American) 52.8 ml/min; Est GFR (Non-African American) 45.5 ml/min; Glucose 82 mg/dl (70-99); Magnesium 1.9 mg/dl (1.8-2.4); Potassium 3.4 mmol/L (3.5-5.1); Sodium 138 mmol/L (136-145)
[2020-12-17 09:38] LABS: Alkaline Phosphatase 79 U/L (45-117); Bilirubin,Total 0.3 mg/dl (0.2-1); Phosphorus 2.5 mg/dl (2.5-4.9); Total Protein 6.4 gm/dl (6.4-8.2)
[2020-12-17] MEDS ORDERED: POTASSIUM CHLORIDE CRTAB 20 MEQ TABCR PO STA (10:44)
[2020-12-17] MEDS: PANTOprazole 40 MG in SYRINGE 0 ML IV SCH (10:57)
[2020-12-17] MEDS ORDERED: MAGNESIUM SULFATE / D5W 1 GM/100 ML BAG IV ONE (11:00)
[2020-12-17] MEDS: LACTATED RINGER'S 1,000 ML IV SCH ×2 (12:43→23:59)
--- NOTE | 2020-12-17 17:23 | Hospitalist Progress Note ---
Date of Service December 17, 2020 Assessment & Plan (1) Sepsis: Plan: Upon admission SIRS- 2 Qsofa 1 - intraabdominal source- Infective CDIFF colitis - CXR no acute process Hypotensive after admission now significantly improved with volume resuscitation Continue Dificid Blood cultures no growth to date Leukocytosis improving down to 20 1K- BLood, Urine, pending Urinalysis never collected No need for Zosyn-has been discontinued Diarrhea is slowing down Lactate now normalized -Lower IV fluid rate down to 70 mL/h of LR (2) C. difficile colitis: Plan: as above, CT abd/pel with colitis present treat with Dificid for 3rd recurrence is allergic/adverse reaction to erythromycin but safe to trial Dificid as is minimally absorbed Family interested in hearing more about fecal transplant (3) Diarrhea: Plan: secondary to C. diff colitis as above-improving Replace electrolytes as needed-give magnesium and potassium today (4) Fall: Plan: No pain with palpation to spine, head, or hips and shoulders - Neuro checks q4- any change obtain stat non-con head - Likely related to hypovolemia and infectious etiology - Fall precautions on floor * No changes neurologically improved today. Continue to follow clinical neuro exams (5) Encephalopathy: Plan: Metabolic encephalopathy- hypovolemia/sepsis-much improved today almost completely back to baseline - Support as above (6) Nausea & vomiting: Plan: now resolved-tolerating diet - Zofran Lower IV fluid rate down (7) Bronchiectasis: Plan: Chronic stable - Continue inhalers- - Combivent nebs secondary to not having the cognitive function to use her spiriva at this time - Pulmicort Respules BID instead of Symbicort for same reasoning as above On O2 which is chronic (8) Hypothyroid: Plan: Continue synthroid TSH normal recently (9) Depression: Plan: Continue sertraline, clonazepam must be taken at night as per son or else she has hallucinations (10) Pulmonary nodule: Plan: 5mm LLL nodule and tree in bud opacities on Chest CT repeat CT scan in 3 months to ensure resolution (11) DVT prophylaxis: Plan: SCDs Dispo-continued stay Discussed care with son At bedside and daughter on speaker phone in the room Admission and Anticipated Discharge Date Admission Date: December 15, 2020 Subjective Patient feeling better today, is much more mentally clear and able to answer questions. States that she was feeling full with eating. Still having some loose stools but is significantly slowed down. Only mild abdominal discomfort. No nausea. Telemetry with normal sinus rhythm and PVCs, rates in the 90s Blood pressures are much improved Review of Systems 2 Review of Systems: All systems reviewed & are unremarkable except as noted in HPI & below Physical Exam Constitutional: WD/WN, vitals as above Eyes: + anicteric sclerae ENMT: external ear and nose normal, oropharynx normal Neck: trachea midline, no thyromegaly Respiratory: normal respiratory effort, lungs clear to auscultation Cardiovascular: RRR, no murmur, no edema Chest (Breasts): Chest: normal inspection of chest Gastrointestinal (Abdomen): normal bowel sounds, soft, nontender, no hepatosplenomegaly Musculoskeletal: Extremities: extremities normal to inspection; no cyanosis and no clubbing Skin: no rashes, warm and dry Neurologic: moves all extremities and awake; no focal motor deficits Psychiatric: A+Ox3, euthymic affect Lymphatic: no lymphedema Results & Data Results & [facility] ([facility]) Vital Signs (Past 12 Hours) Vital Signs Temp Pulse Pulse Resp BP Pulse Ox 12/17/20 15:06 37.1 C 86 19 98/70 L 97 12/17/20 15:00 96 H 12/17/20 11:56 37.4 C 98 H 18 104/68 100 12/17/20 07:46 37.2 C 98 H 18 110/64 95 12/17/20 07:38 91 H 17 96 12/17/20 07:00 96 H Laboratory Results 12/17/20 12/17/20 Range/Units 08:24 08:24 WBC 21.11 H (4.8-10.8) K/uL RBC 3.51 L (4.2-5.4) M/uL Hgb 9.5 L (12.0-16.0) g/dL Hct 31.2 L (37-47) % MCV 88.9 (80-100) fL MCH 27.1 (25-34) pg MCHC 30.4 L (32-36) g/dL RDW Std Deviation 49.6 H (36.4-46.3) fL RDW Coeff of Wilver 15.2 H (11.5-14.5) % Plt Count 272 (130-400) K/uL MPV 10.5 H (7.4-10.4) fL Immature Gran % (Auto) 0.4 % Neut % (Auto) 87.3 % Lymph % (Auto) 4.9 % Austin % (Auto) 6.9 % Eos % (Auto) 0.4 % Baso % (Auto) 0.1 % Neut # (Auto) 18.43 H (1.4-6.5) K/uL Lymph # (Auto) 1.03 L (1.2-3.4) K/uL Austin # (Auto) 1.45 H (0.11-0.59) K/uL Eos # (Auto) 0.09 (0-0.5) K/uL Baso # (Auto) 0.02 (0-0.2) K/uL Immature Gran # (Auto) 0.09 H (0.00-0.02) K/uL Sodium 138 (136-145) mmol/L Potassium 3.4 L (3.5-5.1) mmol/L Chloride 105 (98-107) mmol/L Carbon Dioxide 27 (21-32) mmol/L Anion Gap 5.0 (3-11) BUN 25 H (7-18) mg/dl Creatinine 1.15 (0.6-1.2) mg/dl Est Cr Clr Drug Dosing 31.9 ml/min Est GFR ( Amer) 52.8 ml/min Est GFR (Non-Af Amer) 45.5 ml/min BUN/Creatinine Ratio 21.6 H (10-20) Glucose 82 (70-99) mg/dl Calcium 8.3 L (8.5-10.1) mg/dl Phosphorus 2.5 (2.5-4.9) mg/dl Magnesium 1.9 (1.8-2.4) mg/dl Total Bilirubin 0.3 (0.2-1) mg/dl Direct Bilirubin < 0.1 (0-0.2) mg/dl AST 22 (15-37) U/L ALT 22 (12-78) U/L Alkaline Phosphatase 79 (45-117) U/L Total Protein 6.4 D (6.4-8.2) gm/dl Albumin 2.4 L (3.4-5.0) gm/dl PG Care Time/CCT Total # of Minutes Spent Total Time Spent with Patient: Total time spent is greater than 50% in coordination of care (as documented) at patient's floor/unit and/or counseling patient: Coding Level of Care Code 04194 Subseq Hosp Care Lvl 3 Diagnoses Sepsis A41.9 Sepsis acute organ dysfunction status: unspecified Sepsis type: sepsis due to unspecified organism C. difficile colitis A04.72 Diarrhea R19.7 Diarrhea type: unspecified type Fall W19.XXXA Encounter type: initial encounter Encephalopathy G93.40 Nausea & vomiting R11.2 Vomiting Intractability: non-intractable Vomiting type: unspecified Bronchiectasis J47.9 Bronchiectasis type: uncomplicated Hypothyroid E03.9 Hypothyroidism type: unspecified Depression F32.9 Active/Remission status: remission status unspecified Depression Type: major depressive disorder Major depression recurrence: unspecified whether recurrent Pulmonary nodule R91.1 DVT prophylaxis Z29.9 (1) Depression Active/Remission status: remission status unspecified Depression Type: major depressive disorder Major depression recurrence: unspecified whether recurrent Qualified Code(s): F32.9 - Major depressive disorder, single episode, unspecified (2) Diarrhea Diarrhea type: unspecified type Qualified Code(s): R19.7 - Diarrhea, unspecified (3) Hypothyroid Hypothyroidism type: unspecified Qualified Code(s): E03.9 - Hypothyroidism, unspecified (4) Sepsis Sepsis acute organ dysfunction status: unspecified Sepsis type: sepsis due to unspecified organism Qualified Code(s): A41.9 - Sepsis, unspecified organism (5) Bronchiectasis Bronchiectasis type: uncomplicated Qualified Code(s): J47.9 - Bronchiectasis, uncomplicated (6) Nausea & vomiting Vomiting Intractability: non-intractable Vomiting type: unspecified Qualified Code(s): R11.2 - Nausea with vomiting, unspecified (7) Fall Encounter type: initial encounter Qualified Code(s): W19.XXXA - Unspecified fall, initial encounter
[2020-12-17] MEDS: ACETAMINOPHEN 500 MG TAB PO SCH (20:24)
[2020-12-17] MEDS: clonazePAM 0.5 MG TAB PO SCH (20:25)
[2020-12-18] MEDS ORDERED: Nursing to Pharmacy Communication SCH (00:15)
[2020-12-18] MEDS: LEVOTHYROXINE SODIUM 112 MCG TABLET PO SCH (06:09)
[2020-12-18 06:28] LABS: Basophils # (auto) 0.02 K/uL (0-0.2); Basophils % (auto) 0.1 %; Eosinophils # (auto) 0.52 K/uL (0-0.5); Hematocrit (blood only) 32.4 % (37-47); Hemoglobin 10.1 g/dL (12.0-16.0); Immature Granulocytes # (auto) 0.06 K/uL (0.00-0.02); Immature Granulocytes % (auto) 0.3 %; Lymphocytes # (auto) 1.46 K/uL (1.2-3.4); Lymphocytes % (auto) 8.3 %; Mean Corpuscular Hemoglobin 27.2 pg (25-34); Mean Corpuscular Hgb Conc 31.2 g/dL (32-36); Mean Corpuscular Volume 87.1 fL (80-100); Monocytes # (auto) 1.24 K/uL (0.11-0.59); Neutrophils # (auto) 14.31 K/uL (1.4-6.5); Neutrophils % (auto) 81.3 %; Platelet Count 282 K/uL (130-400); RDW Standard Deviation 48.7 fL (36.4-46.3); Red Blood Count 3.72 M/uL (4.2-5.4); White Blood Count 17.61 K/uL (4.8-10.8)
[2020-12-18 07:06] LABS: Albumin Level 2.5 gm/dl (3.4-5.0); BUN Creatinine Ratio 17.5 (10-20); Calcium 8.6 mg/dl (8.5-10.1); Creatinine Clr Calc Pharmacy 44.1 ml/min; Est GFR (Non-African American) 61.2 ml/min; Magnesium 1.9 mg/dl (1.8-2.4); Potassium 3.3 mmol/L (3.5-5.1)
[2020-12-18 07:15] LABS: Albumin Globulin Ratio 0.6 (0.9-2); Bilirubin,Total 0.2 mg/dl (0.2-1); Globulin 4.1 gm/dl (2.5-4.0); Total Protein 6.6 gm/dl (6.4-8.2)
[2020-12-18] MEDS: ALBUT/IPRATROP 3MG/0.5MG NEB 3 ML VIAL NEB SCH (07:39)
[2020-12-18] MEDS: BUDESONIDE 0.25 MG/2 ML VIAL (PULMICORT) NEB SCH (07:39)
[2020-12-18] MEDS: ASPIRIN 81 MG ECTAB PO SCH (07:59)
[2020-12-18] MEDS: buPROPion XL 150 MG TABCR PO SCH (07:59)
[2020-12-18] MEDS: SERTRALINE HCL 100 MG TABLET PO SCH (08:00)
[2020-12-18] MEDS: FIDAXOMICIN 200 MG TAB PO SCH ×2 (08:00→21:19)
[2020-12-18] MEDS ORDERED: POTASSIUM CHLORIDE CRTAB 20 MEQ TABCR PO STA (09:35)
[2020-12-18] MEDS ORDERED: MAGNESIUM SULFATE / D5W 1 GM/100 ML BAG IV ONE (10:00)
[2020-12-18] MEDS: POTASSIUM CHLORIDE / WTR 10 MEQ/100 ML PLCT IV SCH ×2 (10:35→11:44)
--- NOTE | 2020-12-18 16:35 | Hospitalist Progress Note ---
Date of Service December 18, 2020 Assessment & Plan (1) Sepsis: Plan: Upon admission SIRS- 2 Qsofa 1 - intraabdominal source- Infective CDIFF colitis - CXR no acute process Hypotensive after admission now resolved with volume resuscitation Continue Dificid Blood cultures no growth to date Leukocytosis improving down to 17 Urinalysis never collected No need for Zosyn-has been discontinued Diarrhea is slowing down but persists -Replace electrolytes Lactate now normalized Discontinue IV fluids (2) C. 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 diff colitis as above-improving but persists Replace electrolytes as needed-give magnesium and potassium again today Start cholestyramine 4 g p.o. twice daily (4) Fall: Plan: No pain with palpation to spine, head, or hips and shoulders Now complaining of tailbone pain on 12/18 - Likely related to hypovolemia and infectious etiology - Fall precautions on floor * No changes neurologically improved today. Continue to follow clinical neuro exams -Check pelvis and coccyx x-rays (5) Encephalopathy: Plan: Metabolic encephalopathy- hypovolemia/sepsis-much improved today almost completely back to baseline although son does report some confabulation today -Continue home clonazepam at bedtime to prevent withdrawal - Support as above (6) Nausea & vomiting: Plan: now resolved-tolerating diet - Zofran as needed (7) Bronchiectasis: Plan: Chronic stable -restart home Symbicort and discontinue steroid and scheduled duo nebs nebulizers On O2 which is chronic (8) Hypothyroid: Plan: Continue synthroid TSH normal recently (9) Depression: Plan: Continue sertraline, clonazepam must be taken at night as per son or else she has hallucinations (10) Pulmonary nodule: Plan: 5mm LLL nodule and tree in bud opacities on Chest CT repeat CT scan in 3 months to ensure resolution (11) DVT prophylaxis: Plan: SCDs Dispo-continued stay, OT recommending SNF, PT evaluation pending, patient and son interested in SNF-senior technical manager will need to be involved Discussed care with son At bedside Admission and Anticipated Discharge Date Admission Date: December 15, 2020 Subjective Patient still having multiple loose stools but definitely feeling better today. She is sitting at the side of the bed talking her son when I came in the room. She is mentating clearly. Blood pressures are improved. Telemetry with normal sinus rhythm with first-degree AV block and 80s to 90s for rates. Review of Systems Review of Systems: All systems reviewed & are unremarkable except as noted in HPI & below Has complaints of tailbone pain and wonders if she injured it in her fall. Physical Exam Constitutional: WD/WN, vitals as above Eyes: + anicteric sclerae Neck: trachea midline, no thyromegaly Respiratory: normal respiratory effort, lungs clear to auscultation Cardiovascular: RRR, no murmur, no edema Chest (Breasts): Chest: normal inspection of chest Gastrointestinal (Abdomen): normal bowel sounds, soft, nontender, no hepatosplenomegaly Musculoskeletal: Extremities: extremities normal to inspection; no cyanosis and no clubbing Skin: no rashes, warm and dry Neurologic: moves all extremities and awake; no focal motor deficits Psychiatric: A+Ox3, euthymic affect Lymphatic: no lymphedema Results & Data Results & Data ([facility]) Vital Signs (Past 12 Hours) Vital Signs Temp Pulse Pulse Resp BP Pulse Ox 12/18/20 16:05 36.7 C 88 16 156/78 H 93 12/18/20 14:20 90 12/18/20 12:09 93 12/18/20 11:33 37.0 C 102 H 16 119/53 L 86 L 12/18/20 10:44 90 19 96 12/18/20 08:04 36.9 C 90 16 166/78 H 100 12/18/20 07:38 84 Laboratory Results 12/18/20 12/18/20 Range/Units 06:04 06:04 WBC 17.61 H (4.8-10.8) K/uL RBC 3.72 L (4.2-5.4) M/uL Hgb 10.1 L (12.0-16.0) g/dL Hct 32.4 L (37-47) % MCV 87.1 (80-100) fL MCH 27.2 (25-34) pg MCHC 31.2 L (32-36) g/dL RDW Std Deviation 48.7 H (36.4-46.3) fL RDW Coeff of Wilver 15.0 H (11.5-14.5) % Plt Count 282 (130-400) K/uL MPV 10.0 (7.4-10.4) fL Immature Gran % (Auto) 0.3 % Neut % (Auto) 81.3 % Lymph % (Auto) 8.3 % [place] % (Auto) 7.0 % Eos % (Auto) 3.0 % Baso % (Auto) 0.1 % Neut # (Auto) 14.31 H (1.4-6.5) K/uL Lymph # (Auto) 1.46 (1.2-3.4) K/uL [place] # (Auto) 1.24 H (0.11-0.59) K/uL Eos # (Auto) 0.52 H (0-0.5) K/uL Baso # (Auto) 0.02 (0-0.2) K/uL Immature Gran # (Auto) 0.06 H (0.00-0.02) K/uL Sodium 140 (136-145) mmol/L Potassium 3.3 L (3.5-5.1) mmol/L Chloride 108 H (98-107) mmol/L Carbon Dioxide 28 (21-32) mmol/L Anion Gap 4.0 (3-11) BUN 16 (7-18) mg/dl Creatinine 0.90 (0.6-1.2) mg/dl Est Cr Clr Drug Dosing 44.1 ml/min Est GFR ( Amer) 71.0 ml/min Est GFR (Non-Af Amer) 61.2 ml/min BUN/Creatinine Ratio 17.5 (10-20) Glucose 76 (70-99) mg/dl Calcium 8.6 (8.5-10.1) mg/dl Magnesium 1.9 (1.8-2.4) mg/dl Total Bilirubin 0.2 (0.2-1) mg/dl AST 22 (15-37) U/L ALT 20 (12-78) U/L Alkaline Phosphatase 79 (45-117) U/L Total Protein 6.6 (6.4-8.2) gm/dl Albumin 2.5 L (3.4-5.0) gm/dl Globulin 4.1 H (2.5-4.0) gm/dl Albumin/Globulin Ratio 0.6 L (0.9-2) PG Care Time/CCT Total # of Minutes Spent Total Time Spent with Patient: Total time spent is greater than 50% in coordination of care (as documented) at patient's floor/unit and/or counseling patient: Coding Level of Care Code 29194 Subseq Hosp Care Lvl 3 Diagnoses Sepsis A41.9 Sepsis acute organ dysfunction status: unspecified Sepsis type: sepsis due to unspecified organism C. difficile colitis A04.72 Diarrhea R19.7 Diarrhea type: unspecified type Fall W19.XXXA Encounter type: initial encounter Encephalopathy G93.40 Nausea & vomiting R11.2 Vomiting Intractability: non-intractable Vomiting type: unspecified Bronchiectasis J47.9 Bronchiectasis type: uncomplicated Hypothyroid E03.9 Hypothyroidism type: unspecified Depression F32.9 Depression Type: major depressive disorder Major depression recurrence: unspecified whether recurrent Active/Remission status: remission status unspecified Pulmonary nodule R91.1 DVT prophylaxis Z29.9 (1) Sepsis Sepsis acute organ dysfunction status: unspecified Sepsis type: sepsis due to unspecified organism Qualified Code(s): A41.9 - Sepsis, unspecified organism (2) Diarrhea Diarrhea type: unspecified type Qualified Code(s): R19.7 - Diarrhea, unspecified (3) Fall Encounter type: initial encounter Qualified Code(s): W19.XXXA - Unspecified fall, initial encounter (4) Nausea & vomiting Vomiting Intractability: non-intractable Vomiting type: unspecified Qualified Code(s): R11.2 - Nausea with vomiting, unspecified (5) Bronchiectasis Bronchiectasis type: uncomplicated Qualified Code(s): J47.9 - Bronchiectasis, uncomplicated (6) Hypothyroid Hypothyroidism type: unspecified Qualified Code(s): E03.9 - Hypothyroidism, unspecified (7) Depression Depression Type: major depressive disorder Major depression recurrence: unspecified whether recurrent Active/Remission status: remission status unspecified Qualified Code(s): F32.9 - Major depressive disorder, single episode, unspecified
[2020-12-18] MEDS ORDERED: ALBUT/IPRATROP 3MG/0.5MG NEB 3 ML VIAL NEB PRN (16:36)
--- NOTE | 2020-12-18 17:34 | XRay Report ---
XR coccyx 2V, XR pelvis 1-2V routine CLINICAL HISTORY: coccyx pain s/p fall COMPARISON STUDY: None. FINDINGS: No fractures within the pelvis or hips. The sacrum and coccyx are intact. Presacral soft ti ssues are within normal limits. IMPRESSION: No fractures within the pelvis. Specifically, the sacrum and coccyx appear intact. ACT 112: Negative or not required by law. Electronically signed by: Quinn Maldonado M.D. 12/18/2020 5:33 PM
[2020-12-18] MEDS: clonazePAM 0.5 MG TAB PO SCH (21:19)
[2020-12-18] MEDS: ACETAMINOPHEN 500 MG TAB PO SCH (21:19)
[2020-12-19] MEDS: LEVOTHYROXINE SODIUM 112 MCG TABLET PO SCH (06:09)
[2020-12-19 06:51] LABS: Basophils # (auto) 0.03 K/uL (0-0.2); Basophils % (auto) 0.2 %; Eosinophils # (auto) 0.69 K/uL (0-0.5); Eosinophils % (auto) 5.2 %; Hematocrit (blood only) 31.9 % (37-47); Hemoglobin 9.8 g/dL (12.0-16.0); Immature Granulocytes # (auto) 0.07 K/uL (0.00-0.02); Immature Granulocytes % (auto) 0.5 %; Lymphocytes # (auto) 1.33 K/uL (1.2-3.4); Lymphocytes % (auto) 9.9 %; Mean Corpuscular Hemoglobin 26.6 pg (25-34); Mean Corpuscular Hgb Conc 30.7 g/dL (32-36); Mean Corpuscular Volume 86.4 fL (80-100); Mean Platelet Volume 9.9 fL (7.4-10.4); Monocytes # (auto) 0.96 K/uL (0.11-0.59); Monocytes % (auto) 7.2 %; Neutrophils # (auto) 10.29 K/uL (1.4-6.5); Platelet Count 311 K/uL (130-400); RDW Coefficient of Variation 15.1 % (11.5-14.5); RDW Standard Deviation 47.5 fL (36.4-46.3); Red Blood Count 3.69 M/uL (4.2-5.4); White Blood Count 13.37 K/uL (4.8-10.8)
[2020-12-19 07:37] LABS: BUN Creatinine Ratio 15.4 (10-20); Calcium 8.7 mg/dl (8.5-10.1); Creatinine Clr Calc Pharmacy 54.9 ml/min; Est GFR (Non-African American) 80.2 ml/min; Magnesium 1.8 mg/dl (1.8-2.4); Phosphorus 1.6 mg/dl (2.5-4.9); Potassium 3.4 mmol/L (3.5-5.1)
[2020-12-19] MEDS ORDERED: POTASSIUM PHOS 3 MMOL/1 ML INFUSION IV STA (09:01)
[2020-12-19] MEDS ORDERED: POTASSIUM PHOSPHATE 21 MMOL in SODIUM CHLORIDE 0.9% 500 ML IV ONE (09:30)
[2020-12-19] MEDS: MAGNESIUM SULFATE / D5W 1 GM/100 ML BAG IV SCH ×2 (10:24→13:08)
[2020-12-19] MEDS: ASPIRIN 81 MG ECTAB PO SCH (10:29)
[2020-12-19] MEDS: buPROPion XL 150 MG TABCR PO SCH (10:30)
[2020-12-19] MEDS: FLUTICASONE/VILANTEROL 200/25MCG 14 PUFFS/INHALER INH SCH (10:30)
[2020-12-19] MEDS: SERTRALINE HCL 100 MG TABLET PO SCH (10:30)
[2020-12-19] MEDS: FIDAXOMICIN 200 MG TAB PO SCH ×2 (10:30→20:41)
--- NOTE | 2020-12-19 16:00 | Hospitalist Progress Note ---
Date of Service December 19, 2020 Assessment & Plan (1) Sepsis: Plan: Upon admission SIRS- 2 Qsofa 1 - intraabdominal source- Infective CDIFF colitis - CXR no acute process Hypotensive after admission now resolved with volume resuscitation Continue Dificid x 10 day course Blood cultures no growth to date Leukocytosis improving down to 13 from 28 Urinalysis never collected No need for Zosyn-has been discontinued since admission Diarrhea is slowing down but persists -continue to replace electrolytes dialy-needs Mag, K+, and Phos today Lactate now normalized Discontinued IV fluids (2) C. difficile colitis: Plan: as above, CT abd/pel with colitis present treat with Dificid for 3rd recurrence is allergic/adverse reaction to erythromycin with GI side effects but safe to trial Dificid as is minimally absorbed Family interested in hearing more about fecal transplant-recommend referral to [facility] at [place] for fecal transplant evaluation after discharge-will need appointment scheduled (3) Diarrhea: Plan: secondary to C. diff colitis as above-improving but persists Replace electrolytes as needed-give magnesium and potassium, phos again today continue cholestyramine 4 g p.o. twice daily (4) Fall: Plan: No pain with palpation to spine, head, or hips and shoulders Now complaining of tailbone pain on 12/18 - fall likely related to hypovolemia and infectious etiology - Fall precautions on floor * No changes neurologically improved today. Continue to follow clinical neuro exams -Check pelvis and coccyx [id number] for fracture (5) Encephalopathy: Plan: Metabolic encephalopathy- hypovolemia/sepsis-resolved -Continue home clonazepam at bedtime to prevent withdrawal - Support as above (6) Nausea & vomiting: Plan: now resolved-tolerating diet - Zofran as needed (7) Bronchiectasis: Plan: Chronic stable -restart home Symbicort and discontinue steroid and scheduled duo nebs nebulizers On O2 which is chronic (8) Hypothyroid: Plan: Continue synthroid TSH normal recently (9) Depression: Plan: Continue sertraline, clonazepam must be taken at night as per son or else she has hallucinations (10) Pulmonary nodule: Plan: 5mm LLL nodule and tree in bud opacities on Chest CT repeat CT scan in 3 months to ensure resolution (11) DVT prophylaxis: Plan: SCDs Dispo-continued stay, OT recommending SNF, PT evaluation pending, patient and son interested in SNF-truck manager involved Discussed care with son At bedside and daughter on speaker phone Admission and Anticipated Discharge Date Admission Date: December 15, 2020 Subjective Pt still having frequent loose stools but have become slightly more formed No abd pains. Mentation is very clear. Son at bedside agrees Tele with NSR, PVCs, 1st degree AVB, rates 70-90s Review of Systems Review of Systems: All systems reviewed & are unremarkable except as noted in HPI & below Physical Exam Constitutional: WD/WN, vitals as above Eyes: + anicteric sclerae ENMT: external ear and nose normal, oropharynx normal Neck: trachea midline, no thyromegaly Respiratory: normal respiratory effort, lungs clear to auscultation Cardiovascular: RRR, no murmur, no edema Chest (Breasts): Chest: normal inspection of chest Gastrointestinal (Abdomen): normal bowel sounds, soft, nontender, no hepatosplenomegaly Musculoskeletal: Extremities: extremities normal to inspection; no cyanosis and no clubbing Skin: no rashes, warm and dry Neurologic: moves all extremities and awake; no focal motor deficits Psychiatric: A+Ox3, euthymic affect Lymphatic: no lymphedema Results & Data Results & Data ([facility]) Vital Signs (Past 12 Hours) Vital Signs Temp Pulse Pulse Resp BP Pulse Ox 12/19/20 15:53 36.8 C 86 16 178/90 H 98 12/19/20 14:20 91 H 12/19/20 11:30 36.7 C 89 16 166/84 H 93 12/19/20 06:43 78 12/19/20 04:00 36.9 C 91 H 20 172/85 H 95 Laboratory Results 12/19/20 12/19/20 Range/Units 06:19 06:19 WBC 13.37 H (4.8-10.8) K/uL RBC 3.69 L (4.2-5.4) M/uL Hgb 9.8 L (12.0-16.0) g/dL Hct 31.9 L (37-47) % MCV 86.4 (80-100) fL MCH 26.6 (25-34) pg MCHC 30.7 L (32-36) g/dL RDW Std Deviation 47.5 H (36.4-46.3) fL RDW Coeff of Wilver 15.1 H (11.5-14.5) % Plt Count 311 (130-400) K/uL MPV 9.9 (7.4-10.4) fL Immature Gran % (Auto) 0.5 % Neut % (Auto) 77.0 % Lymph % (Auto) 9.9 % [place] % (Auto) 7.2 % Eos % (Auto) 5.2 % Baso % (Auto) 0.2 % Neut # (Auto) 10.29 H (1.4-6.5) K/uL Lymph # (Auto) 1.33 (1.2-3.4) K/uL [place] # (Auto) 0.96 H (0.11-0.59) K/uL Eos # (Auto) 0.69 H (0-0.5) K/uL Baso # (Auto) 0.03 (0-0.2) K/uL Immature Gran # (Auto) 0.07 H (0.00-0.02) K/uL Sodium 141 (136-145) mmol/L Potassium 3.4 L (3.5-5.1) mmol/L Chloride 107 (98-107) mmol/L Carbon Dioxide 29 (21-32) mmol/L Anion Gap 5.0 (3-11) BUN 11 (7-18) mg/dl Creatinine 0.72 (0.6-1.2) mg/dl Est Cr Clr Drug Dosing 54.9 ml/min Est GFR ( Amer) 93.0 ml/min Est GFR (Non-Af Amer) 80.2 ml/min BUN/Creatinine Ratio 15.4 (10-20) Glucose 77 (70-99) mg/dl Calcium 8.7 (8.5-10.1) mg/dl Phosphorus 1.6 L (2.5-4.9) mg/dl Magnesium 1.8 (1.8-2.4) mg/dl PG Care Time/CCT Total # of Minutes Spent Total Time Spent with Patient: Total time spent is greater than 50% in coordination of care (as documented) at patient's floor/unit and/or counseling patient: Coding Level of Care Code 37602 Subseq Hosp Care Lvl 2 Diagnoses Sepsis A41.9 Sepsis acute organ dysfunction status: unspecified Sepsis type: sepsis due to unspecified organism C. difficile colitis A04.72 Diarrhea R19.7 Diarrhea type: unspecified type Fall W19.XXXA Encounter type: initial encounter Encephalopathy G93.40 Nausea & vomiting R11.2 Vomiting Intractability: non-intractable Vomiting type: unspecified Bronchiectasis J47.9 Bronchiectasis type: uncomplicated Hypothyroid E03.9 Hypothyroidism type: unspecified Depression F32.9 Active/Remission status: remission status unspecified Depression Type: major depressive disorder Major depression recurrence: unspecified whether recurrent Pulmonary nodule R91.1 DVT prophylaxis Z29.9 (1) Depression Active/Remission status: remission status unspecified Depression Type: major depressive disorder Major depression recurrence: unspecified whether recurrent Qualified Code(s): F32.9 - Major depressive disorder, single episode, unspecified (2) Diarrhea Diarrhea type: unspecified type Qualified Code(s): R19.7 - Diarrhea, unspecified (3) Hypothyroid Hypothyroidism type: unspecified Qualified Code(s): E03.9 - Hypothyroidism, unspecified (4) Sepsis Sepsis acute organ dysfunction status: unspecified Sepsis type: sepsis due to unspecified organism Qualified Code(s): A41.9 - Sepsis, unspecified organism (5) Bronchiectasis Bronchiectasis type: uncomplicated Qualified Code(s): J47.9 - Bronchiectasis, uncomplicated (6) Nausea & vomiting Vomiting Intractability: non-intractable Vomiting type: unspecified Qualified Code(s): R11.2 - Nausea with vomiting, unspecified (7) Fall Encounter type: initial encounter Qualified Code(s): W19.XXXA - Unspecified fall, initial encounter
[2020-12-19] MEDS: clonazePAM 0.5 MG TAB PO SCH (20:41)
[2020-12-19] MEDS: ACETAMINOPHEN 500 MG TAB PO SCH (20:41)
[2020-12-20] MEDS: LEVOTHYROXINE SODIUM 112 MCG TABLET PO SCH (05:58)
[2020-12-20] MEDS: SERTRALINE HCL 100 MG TABLET PO SCH (08:55)
[2020-12-20] MEDS: ASPIRIN 81 MG ECTAB PO SCH (08:55)
[2020-12-20] MEDS: buPROPion XL 150 MG TABCR PO SCH (08:55)
[2020-12-20] MEDS: FLUTICASONE/VILANTEROL 200/25MCG 14 PUFFS/INHALER INH SCH (08:56)
[2020-12-20] MEDS: FIDAXOMICIN 200 MG TAB PO SCH ×2 (09:00→21:01)
[2020-12-20 09:47] LABS: Basophils # (auto) 0.03 K/uL (0-0.2); Basophils % (auto) 0.3 %; Eosinophils # (auto) 0.58 K/uL (0-0.5); Eosinophils % (auto) 6.3 %; Hematocrit (blood only) 32.2 % (37-47); Hemoglobin 9.9 g/dL (12.0-16.0); Immature Granulocytes # (auto) 0.06 K/uL (0.00-0.02); Immature Granulocytes % (auto) 0.7 %; Lymphocytes % (auto) 14.2 %; Mean Corpuscular Hemoglobin 26.7 pg (25-34); Mean Corpuscular Hgb Conc 30.7 g/dL (32-36); Mean Corpuscular Volume 86.8 fL (80-100); Monocytes # (auto) 0.93 K/uL (0.11-0.59); Monocytes % (auto) 10.1 %; Neutrophils # (auto) 6.27 K/uL (1.4-6.5); Neutrophils % (auto) 68.4 %; Platelet Count 312 K/uL (130-400); RDW Coefficient of Variation 15.2 % (11.5-14.5); RDW Standard Deviation 48.4 fL (36.4-46.3); Red Blood Count 3.71 M/uL (4.2-5.4); White Blood Count 9.17 K/uL (4.8-10.8)
[2020-12-20 10:29] LABS: BUN Creatinine Ratio 13.9 (10-20); Calcium 8.7 mg/dl (8.5-10.1); Creatinine Clr Calc Pharmacy 45.2 ml/min; Est GFR (African American) 72.9 ml/min; Est GFR (Non-African American) 62.9 ml/min; Magnesium 2.1 mg/dl (1.8-2.4); Phosphorus 2.9 mg/dl (2.5-4.9); Potassium 3.3 mmol/L (3.5-5.1)
--- NOTE | 2020-12-20 15:48 | Hospitalist Progress Note ---
Date of Service December 20, 2020 Assessment & Plan (1) Sepsis: Plan: Upon admission SIRS- 2 Qsofa 1 - intraabdominal source- Infective CDIFF colitis - CXR no acute process Hypotensive after admission now resolved with volume resuscitation Continue Dificid x 10 day course, last day would be 12/26 Blood cultures no growth to date Leukocytosis improving down to 9k today diarrhea resolved -continue to replace electrolytes daily (2) C. difficile colitis: Plan: as above, CT abd/pel with colitis present treat with Dificid x 10 days for 3rd recurrence is allergic/adverse reaction to erythromycin with GI side effects but safe to trial Dificid as is minimally absorbed Family interested in hearing more about fecal transplant-recommend referral to [facility] at [place] for fecal transplant evaluation after discharge-will need appointment scheduled (3) Diarrhea: Plan: secondary to C. diff colitis as above-improving but persists Replace electrolytes as needed-give magnesium and potassium, phos again today no need for cholestyramine, stools are getting solid (4) Fall: Plan: No pain with palpation to spine, head, or hips and shoulders Now complaining of tailbone pain on 12/18 - fall likely related to hypovolemia and infectious etiology - Fall precautions on floor * No changes neurologically improved today. Continue to follow clinical neuro exams -Check pelvis and coccyx [id number] for fracture (5) Encephalopathy: Plan: Metabolic encephalopathy- hypovolemia/sepsis-resolved -Continue home clonazepam at bedtime to prevent withdrawal - Support as above (6) Nausea & vomiting: Plan: now resolved-tolerating diet - Zofran as needed (7) Bronchiectasis: Plan: Chronic stable -restart home Symbicort and discontinue steroid and scheduled duo nebs nebulizers On O2 which is chronic (8) Hypothyroid: Plan: Continue synthroid TSH normal recently (9) Depression: Plan: Continue sertraline, clonazepam must be taken at night as per son or else she has hallucinations (10) Pulmonary nodule: Plan: 5mm LLL nodule and tree in bud opacities on Chest CT repeat CT scan in 3 months to ensure resolution (11) DVT prophylaxis: Plan: SCDs Dispo-continued stay, therapy okay with her returning to [facility], can get therapy there, plan for discharge tomorrow morning Admission and Anticipated Discharge Date Admission Date: December 15, 2020 Subjective patient doing well with treatment for C diff, no diarrhea today, had a small solid stool eating well, getting up independently, can go back to Personal care tomorrow no fever, no chills, no chest pain, no cough, no nausea, no rash Review of Systems Review of Systems: All systems reviewed & are unremarkable except as noted in Subjective Physical Exam Constitutional: WD/WN, vitals as above Neck: trachea midline, no thyromegaly Respiratory: normal respiratory effort, lungs clear to auscultation Cardiovascular: RRR, no murmur, no edema Gastrointestinal (Abdomen): normal bowel sounds, soft, nontender, no hepatosplenomegaly Musculoskeletal: no cyanosis or clubbing, extremities motor strength 5/5 Skin: no rashes, warm and dry Neurologic: patellar DTR's 2+ bilat, sensation intact and PERRL, EOMI, accommodation nl, no face palsy, no dysarthria Psychiatric: A+Ox3, euthymic affect Results & Data Results & Data ([facility]) Vital Signs (Past 12 Hours) Vital Signs Temp Pulse Pulse Resp BP Pulse Ox 12/20/20 14:57 86 12/20/20 11:48 36.6 C 88 19 135/73 95 12/20/20 08:33 36.8 C 82 18 144/67 H 99 12/20/20 07:11 81 Laboratory Results Laboratory Results - last 24 hr 12/20/20 12/20/20 09:15 09:16 WBC 9.17 RBC 3.71 L Hgb 9.9 L Hct 32.2 L MCV 86.8 MCH 26.7 MCHC 30.7 L RDW Std Deviation 48.4 H RDW Coeff of Wilver 15.2 H Plt Count 312 MPV 10.0 Immature Gran % (Auto) 0.7 Neut % (Auto) 68.4 Lymph % (Auto) 14.2 [place] % (Auto) 10.1 Eos % (Auto) 6.3 Baso % (Auto) 0.3 Neut # (Auto) 6.27 Lymph # (Auto) 1.30 [place] # (Auto) 0.93 H Eos # (Auto) 0.58 H Baso # (Auto) 0.03 Immature Gran # (Auto) 0.06 H Sodium 140 Potassium 3.3 L Chloride 104 Carbon Dioxide 31 Anion Gap 5.0 BUN 12 Creatinine 0.88 Est Cr Clr Drug Dosing 45.2 Est GFR ( Amer) 72.9 Est GFR (Non-Af Amer) 62.9 BUN/Creatinine Ratio 13.9 Glucose 112 H Calcium 8.7 Phosphorus 2.9 D Magnesium 2.1 Medications Administered Current Inpatient Medications Acetaminophen (Acetaminophen 500 Mg Tab) 1,000 mg PO [facility] Stop: 01/15/21 20:59 Last Admin: 12/19/20 20:41 Dose: 1,000 mg Documented by: Acetaminophen (Acetaminophen 325 Mg Tab) 650 mg PO Q4H PRN PRN Reason: Fever Stop: 01/15/21 04:46 Albuterol (Albut/Ipratrop 3mg/0.5mg Neb 3 Ml Vial) 3 ml NEB BIDR PRN PRN Reason: Shortness of breath Stop: 01/16/21 18:59 Aspirin (Aspirin 81 Mg Ectab) [facility] Stop: 01/15/21 08:59 Last Admin: 12/20/20 08:55 Dose: 81 mg Documented by: Bupropion HCl (Bupropion Xl 150 Mg Tabcr) 150 mg PO [facility] Stop: 01/15/21 08:59 Last Admin: 12/20/20 08:55 Dose: 150 mg Documented by: Clonazepam (Clonazepam 0.5 Mg Tab) 0.5 mg PO [facility] Stop: 01/16/21 20:59 Last Admin: 12/19/20 20:41 Dose: 0.5 mg Documented by: Fidaxomicin (Fidaxomicin 200 Mg Tab) 200 mg PO BID [facility] Stop: 12/26/20 08:59 Last Admin: 12/20/20 09:00 Dose: 200 mg Documented by: Fluticasone/Vilanterol (Fluticasone/Vilanterol 200/25mcg 14 Puffs/Inhaler) 1 puffs INH DAILY [facility] Stop: 01/15/21 08:59 Last Admin: 12/20/20 08:56 Dose: 1 puffs Documented by: Levothyroxine Sodium (Levothyroxine Sodium 112 Mcg Tablet) [facility] Stop: 01/15/21 06:29 Last Admin: 12/20/20 05:58 Dose: 112 mcg Documented by: Ondansetron HCl (Ondansetron Inj 2 Mg/Ml 2 Ml Vial) 4 mg IV Q6H PRN PRN Reason: Nausea Stop: 01/14/21 22:55 Sertraline HCl (Sertraline Hcl 100 Mg Tablet) 100 mg PO QAM DAWIT Stop: 01/15/21 08:59 Last Admin: 12/20/20 08:55 Dose: 100 mg Documented by: PG Care Time/CCT Total # of Minutes Spent Total Time Spent with Patient: Total time spent is greater than 50% in coordination of care (as documented) at patient's floor/unit and/or counseling patient: Coding Level of Care Code 35618 Subseq Hosp Care Lvl 2 Diagnoses Sepsis A41.9 Sepsis acute organ dysfunction status: unspecified Sepsis type: sepsis due to unspecified organism C. difficile colitis A04.72 Diarrhea R19.7 Diarrhea type: unspecified type Fall W19.XXXA Encounter type: initial encounter Encephalopathy G93.40 Nausea & vomiting R11.2 Vomiting Intractability: non-intractable Vomiting type: unspecified Bronchiectasis J47.9 Bronchiectasis type: uncomplicated Hypothyroid E03.9 Hypothyroidism type: unspecified Depression F32.9 Depression Type: major depressive disorder Major depression recurrence: unspecified whether recurrent Active/Remission status: remission status unspecified Pulmonary nodule R91.1 DVT prophylaxis Z29.9 (1) Sepsis Sepsis acute organ dysfunction status: unspecified Sepsis type: sepsis due to unspecified organism Qualified Code(s): A41.9 - Sepsis, unspecified organism (2) Diarrhea Diarrhea type: unspecified type Qualified Code(s): R19.7 - Diarrhea, unspecified (3) Fall Encounter type: initial encounter Qualified Code(s): W19.XXXA - Unspecified fall, initial encounter (4) Nausea & vomiting Vomiting Intractability: non-intractable Vomiting type: unspecified Qualified Code(s): R11.2 - Nausea with vomiting, unspecified (5) Bronchiectasis Bronchiectasis type: uncomplicated Qualified Code(s): J47.9 - Bronchiectasis, uncomplicated (6) Hypothyroid Hypothyroidism type: unspecified Qualified Code(s): E03.9 - Hypothyroidism, unspecified (7) Depression Depression Type: major depressive disorder Major depression recurrence: unspecified whether recurrent Active/Remission status: remission status unspecified Qualified Code(s): F32.9 - Major depressive disorder, single episode, unspecified
[2020-12-20] MEDS: clonazePAM 0.5 MG TAB PO SCH (21:01)
[2020-12-20] MEDS: ACETAMINOPHEN 500 MG TAB PO SCH (21:02)
[2020-12-21] MEDS: LEVOTHYROXINE SODIUM 112 MCG TABLET PO SCH (06:20)
[2020-12-21] MEDS: FLUTICASONE/VILANTEROL 200/25MCG 14 PUFFS/INHALER INH SCH (09:39)
[2020-12-21] MEDS: buPROPion XL 150 MG TABCR PO SCH (09:39)
[2020-12-21] MEDS: FIDAXOMICIN 200 MG TAB PO SCH (09:39)
[2020-12-21] MEDS: ASPIRIN 81 MG ECTAB PO SCH (09:39)
[2020-12-21] MEDS: SERTRALINE HCL 100 MG TABLET PO SCH (09:39)
[2020-12-21] MEDS ORDERED: CHOLESTYRAMINE LIGHT 4 GM PKT PO STA (10:32)
--- NOTE | 2020-12-21 10:54 | Discharge Summary ---
Date of Service December 21, 2020 Admission HPI Per Admitting Provider 80 YOF with past medical history of: Bronchiectasis, COPD, C-Diff, UTI, Sepsis, Depression, Hypothyroidism. Patient comes to the EMD today following a fall at the [place], patient does not recall if she hit her head or not. Patient has also been having nausea with vomiting, and continues to have multiple loose stools a day per her report and son. Patient was at [facility] about 5 weeks ago for urinary sepsis per the son. She was admitted in October for C-Diff colitis. The patient is fatigued and lethargic appearing but answering questions to the best of her ability. She has received 1.5 liters of crystalloid in the EMD and continues to get her nausea and vomiting controlled to be able to get advanced imaging done. Patient is not febrile, but does endorse fatigue, bloating, diarrhea. Her son is present at the bedside and is able to endorse that she just can't seem to get healthy with recurrent infections and antibiotics. Patient will be admitted will retest for Cdiff and cover for now, and continue to work up her infectious symptoms. Continue with LR resuscitation, Oral Vancomycin, Zosyn for presumed abdominal source at this time. 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 Discharge Exam Constitutional WD/WN, vitals as above Neck trachea midline, no thyromegaly Respiratory normal respiratory effort, lungs clear to auscultation Cardiovascular RRR, no murmur, no edema Gastrointestinal (Abdomen) normal bowel sounds, soft, nontender, no hepatosplenomegaly Musculoskeletal no cyanosis or clubbing, extremities motor strength 5/5 Skin no rashes, warm and dry Neurologic patellar DTR's 2+ bilat, sensation intact and PERRL, EOMI, accommodation nl, no face palsy, no dysarthria Psychiatric A+Ox3, euthymic affect Discharge Data Allergies Allergy/AdvReac Type Severity Reaction Status Date / Time dichloralphenazone AdvReac Severe angina and Unverified 10/10/20 07:55 [From Midrin] hypertension isometheptene [From Midrin] AdvReac Severe angina and Unverified 10/10/20 07:55 hypertension verapamil AdvReac Severe angina and Unverified 10/10/20 07:55 hypertension erythromycin base AdvReac Unknown Unknown Unverified 10/10/20 07:55 Ordered Studies 12/15/20 18:42 CT cervical spine wo con Stat CT head/brain wo con Stat 12/15/20 19:48 CT abd pelvis wo con Stat 12/15/20 21:29 CT chest diagnostic wo con Stat Hospital Course (1) Sepsis: Upon admission SIRS- 2 Qsofa 1 - intraabdominal source- Infective CDIFF colitis - CXR no acute process Hypotensive after admission now resolved with volume resuscitation Continue Dificid x 10 day course, last day would be 12/26 Blood cultures no growth to date Leukocytosis improving down to 9k on 12/20 diarrhea resolving, using Questran to bulk up stools this is her 3rd episode of C diff colitis 1st episode the beginning of October was treated with standard 7-10 days of Vancomycin PO 2nd episode later in October was treated with prolonged taper of Vancomycin 3rd episode now mid December, treat with Dificid 200mg BID x 10 days d/w gastroenterology, she can follow up with [facility], however, might not be able to perform fecal transplant for a few more months product has been placed on hold with [employer] once she is done with Dificid will place her on Vancomycin 125mg daily to try to suppress further infection, she gets very sick/septic every time she has colitis, want to try to avoid that situation will continue Vancomycin until she can follow up with GI and get approved for fecal transplant (2) C. difficile colitis: as above, CT abd/pel with colitis present treat with Dificid x 10 days for 3rd recurrence then use Vancomycin for suppressive therapy Family interested in hearing more about fecal transplant-recommend referral to [facility] at [place] for fecal transplant evaluation after discharge-will need appointment scheduled d/w GI physician, not currently doing transplants with COVID, might be available in a few months (3) Diarrhea: secondary to C. diff colitis as above-improving but persists Replace electrolytes as needed-give magnesium and potassium, phos again today cholestyramine BID, stools are getting solid (4) Fall: No pain with palpation to spine, head, or hips and shoulders Now complaining of tailbone pain on 12/18 - fall likely related to hypovolemia and infectious etiology - Fall precautions on floor * No changes neurologically improved today. Continue to follow clinical neuro exams -Check pelvis and coccyx [id number] for fracture (5) Encephalopathy: Metabolic encephalopathy- hypovolemia/sepsis-resolved -Continue home clonazepam at bedtime to prevent withdrawal - Support as above (6) Nausea & vomiting: now resolved-tolerating diet - Zofran as needed (7) Bronchiectasis: Chronic stable -restart home Symbicort and discontinue steroid and scheduled duo nebs nebulizers On O2 which is chronic (8) Hypothyroid: Continue synthroid TSH normal recently (9) Depression: Continue sertraline, clonazepam must be taken at night as per son or else she has hallucinations (10) Pulmonary nodule: 5mm LLL nodule and tree in bud opacities on Chest CT repeat CT scan in 3 months to ensure resolution (11) DVT prophylaxis: SCDs Dispo-continued stay, therapy okay with her returning to [facility], can get therapy there, plan for discharge tomorrow morning Total Time Total Time Spent Total Time Spent (In Minutes): 40 Discharge Plan Discharge Items Patient Disposition: Personal Residential Reason For Visit: DIARRHEA Discharge Diagnosis: C difficile colitis Sepsis due to colitis Condition on Discharge: Good Goals: complete course of Dificid take Questran twice a day to bulk up stools follow up with [facility] to discuss fecal transplant Activity: Resume your previous activity Non-emergency contact: Primary Care Provider and [employer] Consultant Call non-emergency contact if: you have any medication questions, your symptoms worsen, your pain is not controlled and you have a fever Follow-up/Referrals: GIOVANNA, [Primary Care Provider] - (one week) Diet: Regular Addtl Attending Provider Instructions: Medications: - DIFICID: complete a full course to treat C diff colitis, next dose due this evening - QUESTRAN: take twice a day to help bulk up stools, can stop if stools are solid take with meals, take 1 hour after other medications, don't take other medications 4 hours after Questran C difficile colitis, sepsis, dehydration dramatically improved with treatment of C diff colitis and with IV fluids vitals have been stable, WBC down to normal, eating well stool was loose with solid components today will finish a 10 day course of Dificid and use Questran to bulk up stools can refer to [facility] for evaluation of recurrent C diff consideration for fecal transplant unsure if they are performing transplants at this time due to COVID but worth the referral Pending Studies at Discharge: No Stand-Alone Forms: My [employer], Smoking Cessation Skilled Items Patient informed of condition?: Yes DNR: No Discharge Level of Care: Other Communicable Disease: No Discharge Prognosis: Stable Lines: None Urinary Catheter: No Medications and DC Order Prescriptions: New Dificid 200 mg Tablet 200 mg PO BID 6 Days Qty: 13 RF: 0 cholestyramine (with sugar) [Questran] 4 gram powder in packet 4 g PO BID 7 Days Qty: 14 RF: 0 vancomycin 125 mg capsule 125 mg PO DAILY 30 Days Qty: 30 RF: 1 Continued clonazepam 0.5 mg Tablet 0.5 mg PO HS RF: 0 acetaminophen [Tylenol Extra Strength] 500 mg Tablet 1,000 mg PO HS RF: 0 azelastine 137 mcg (0.1 %) Aerosol,[place] 2 spray INTRANASAL BIDM RF: 0 levothyroxine 112 mcg Tablet 112 mcg PO QAM RF: 0 omeprazole magnesium [Prilosec OTC] 20 mg Tablet,Delayed Release (Dr/Ec) 20 mg PO DAILYBB RF: 0 Spiriva with HandiHaler 18 mcg Capsule, W/Inhalation Device 1 cap INHALATION QAM RF: 0 budesonide-formoterol [Symbicort] 160-4.5 mcg/actuation Hfa Aerosol Inhaler 2 puff INHALATION BID RF: 0 aspirin 81 mg Tablet,Delayed Release (Dr/Ec) 81 mg PO QAM RF: 0 bupropion HCl 150 mg tablet extended release 24 hr 150 mg PO QAM RF: 0 cholecalciferol (vitamin D3) 50 mcg (2,000 unit) Tablet 50 mcg PO QAM RF: 0 potassium chloride 20 mEq Tablet Extended Release 20 meq PO QAM RF: 0 magnesium oxide 400 mg magnesium Tablet 400 mg PO QDD RF: 0 sertraline 100 mg tablet 100 mg PO QAM RF: 0 calcium carbonate [Calcium Antacid] 200 mg calcium (500 mg) Tablet,Chewable 200 mg PO QDD RF: 0 Discharge Orders: Discharge Order (Routine); Ordered 12/21/20 Ordered By: Hugh Wheeler Admission Data Admit Date/Time: 12/15/20 22:00 Attending Provider: Hugh Wheeler Admit Provider: Deniz Padron Primary Care Provider: Victorino HEREDIA Interventions: Discharge Summary Assessment (RN) Last Done: 12/21/20 10:49 Coding Level of Care Code D/C DAY MANAGEMENT >30 MINS Diagnoses Sepsis A41.9 Sepsis acute organ dysfunction status: unspecified Sepsis type: sepsis due to unspecified organism C. difficile colitis A04.72 Diarrhea R19.7 Diarrhea type: unspecified type Fall W19.XXXA Encounter type: initial encounter Encephalopathy G93.40 Nausea & vomiting R11.2 Vomiting Intractability: non-intractable Vomiting type: unspecified Bronchiectasis J47.9 Bronchiectasis type: uncomplicated Hypothyroid E03.9 Hypothyroidism type: unspecified Depression F32.9 Active/Remission status: remission status unspecified Depression Type: major depressive disorder Major depression recurrence: unspecified whether recurrent Pulmonary nodule R91.1 DVT prophylaxis Z29.9
== END 2020-12-21 12:31 | disposition home or self-care (01) | DRG 871 ==
LOC: ED 18:15 → SUATTDRO 22:00 → 2W 22:00

== ENCOUNTER 2021-10-31 02:17 | Inpatient (IN) ==
[2021-10-31] MEDS ORDERED: fentaNYL citrate 100 MCG/2 ML VIAL IV STA ×2 (02:35→03:29)
--- NOTE | 2021-10-31 02:45 | Emergency Department Note ---
History of Present Illness General Chief complaint: Fall Stated complaint: fall w/ lt. hip pain Time Seen by Provider: 10/31/21 02:35 History of Present Illness Maximum Pain Intensity: 6 41-year-old female presents emergency department she was getting into bed she pivoted and twisted her body and fell landing on her left hip. Patient states that she did not strike her head does not complain of any headache any change in mental status any neck pain or numbness or tingling. Patient states pain with motion of the left leg decreases with rest. There is no numbness or tingling down the left leg. There are no other mitigating or alleviating factors. There are no other complaints of trauma. Home Medications Medication Instructions Recorded Confirmed Type acetaminophen 500 mg tablet 1,000 mg PO HS 03/07/20 10/10/20 History (Tylenol Extra Strength) azelastine 137 mcg (0.1 %) nasal 2 spray INTRANASAL BIDM 03/07/20 10/10/20 History spray aerosol budesonide-formoterol HFA 160 2 puff INHALATION BID 03/07/20 10/10/20 History mcg-4.5 mcg/actuation aerosol inhaler (Symbicort) clonazepam 0.5 mg tablet 0.5 mg PO HS 03/07/20 10/10/20 History levothyroxine 112 mcg tablet 112 mcg PO QAM 03/07/20 10/10/20 History omeprazole magnesium 20 mg 20 mg PO DAILYBB 03/07/20 10/10/20 History tablet,delayed release (Prilosec OTC) tiotropium bromide 18 mcg capsule 1 cap INHALATION QAM 03/07/20 10/10/20 History with inhalation device (Spiriva with HandiHaler) aspirin 81 mg tablet,delayed 81 mg PO QAM 10/10/20 10/10/20 History release bupropion HCl 150 mg 24 hr tablet, 150 mg PO QAM 10/10/20 10/10/20 History extended release calcium carbonate 200 mg calcium 200 mg PO QDD 10/10/20 10/10/20 History (500 mg) chewable tablet (Calcium Antacid) cholecalciferol (vitamin D3) 50 50 mcg PO QAM 10/10/20 10/10/20 History mcg (2,000 unit) tablet magnesium oxide 400 mg PO QDD 10/10/20 10/10/20 History potassium chloride 20 mEq 20 meq PO QAM 10/10/20 10/10/20 History tablet,extended release sertraline 100 mg tablet 100 mg PO QAM 10/10/20 10/10/20 History vancomycin 125 mg capsule 125 mg PO DAILY 30 Days #30 cap 12/21/20 Rx Allergies Allergy/AdvReac Type Severity Reaction Status Date / Time dichloralphenazone AdvReac Severe angina and Unverified 10/10/20 07:55 [From Midrin] hypertension isometheptene [From Midrin] AdvReac Severe angina and Unverified 10/10/20 07:55 hypertension verapamil AdvReac Severe angina and Unverified 10/10/20 07:55 hypertension erythromycin base AdvReac Unknown Unknown Unverified 10/10/20 07:55 Past Med/Surg History Medical History Bronchiectasis Confusion COPD (chronic obstructive pulmonary disease) Dementia Depression Diarrhea Double vision Encephalopathy Fall Fall Head trauma Hypothyroid Leukocytosis Migraine Nausea & vomiting Pulmonary nodule Sepsis SOB (shortness of breath) Transient cerebral ischemia Surgical History History of tonsillectomy History of tubal ligation Family History Other Family history non-contributory Social History Smoking Status: Former smoker Tobacco Type: Cigarettes Hx Alcohol Use: No Hx Substance Use: No Preferred Language: French Communication Ability: Effective Manager Of Loss Prevention Operations Required: No Beliefs That Will Affect Care: None marital status: / Current Living Situation: Alone and Personal Care Facility Feels Safe at Home: Yes Assistive Devices: Glasses Review of Systems A total of 10 systems reviewed and were otherwise negative Constitutional: no fever Cardiovascular: no chest pain Musculoskeletal: + joint pain and + limited range of motion Physical Exam Vital Signs Vital Signs - 24 hr 10/31/21 02:26 Pulse Rate 103 H Respiratory Rate 32 H Blood Pressure 169/95 H Blood Pressure Mean 119 Pulse Oximetry 93 Oxygen Delivery Method Nasal Cannula Oxygen Flow Rate 3 Sepsis Recent Fever Within 48 Hours No Sepsis New/Unexplained Change in Mental Status No Sepsis Action Taken by Nursing No Action Required VITAL SIGNS - Vital signs and nursing notes were reviewed. GENERAL - no acute distress. Communicates well with provider and answers questions appropriately. SKIN - Without rashes. HEAD - NC/AT. EYES - PERRL with EOMI bilaterally. Sclera anicteric. Palpebral conjunctiva pink and moist with no injection noted. EARS - No deformities of external structures noted on gross examination bilaterally. NOSE - Midline and without cyanosis. No epistaxis or purulent drainage noted. Septum midline without deviation or septal hematoma noted. MOUTH/OROPHARYNX - Without perioral cyanosis. Buccal mucosa pink and moist NECK - Neck with FROM. LUNGS - Chest wall symmetric without accessory muscle use, intercostals retractions, or central cyanosis. Normal vesicular breath sounds CTA B/L. No wheezes, rales, or rhonchi appreciated. CARDIAC - RRR with S1/S2. No murmur, rubs, or gallops appreciated. ABDOMEN - Abdominal contour soft without pulsations or visible masses. BS normoactive all four quadrants. No tenderness, palpable masses, hepatosplenomegaly, or ascites noted. EXTREMITIES - No clubbing or peripheral cyanosis. No pretibial edema present. Left hip, tenderness with palpation, slightly shortened and rotated. There is no pain at the left knee patient is neurovascularly intact distally NEUROLOGIC - Cranial nerves II through XII grossly intact. PSYCH - A&Ox3 and cooperates fully with examiner. Pt is very pleasant and interacts well with examiner. Course Reevaluation(s) Reevaluation #1: Patient is resting in no distress was given IV fentanyl, the case was discussed with the family at bedside, the patient will be admitted for a left femoral neck fracture Time: 03:21 Reevaluation #2: Spoke with Dr. Anderson Time: 03:24 Administered Medications Discontinued Medications Fentanyl Citrate (Fentanyl Citrate 100 Mcg/2 Ml Vial) 25 mcg IV NOW STA Stop: 10/31/21 02:36 Last Admin: 10/31/21 02:46 Dose: 25 mcg Documented by: [id number] Medical Decision Making Medical Records Attestation: I reviewed the patient's medical records. Home Medications Current Medication List: was personally reviewed by me Laboratory Data Attestation: I reviewed the patient's lab results. Result diagrams: 10/31/21 02:35 10/31/21 02:35 Lab Results 10/31/21 10/31/2122 Range/Units 02:35 02:35 02:35 WBC 22.07 H (4.8-10.8) K/uL RBC 4.61 (4.2-5.4) M/uL Hgb 13.1 (12.0-16.0) g/dL Hct 41.6 (37-47) % MCV 90.2 (80-100) fL MCH 28.4 (25-34) pg MCHC 31.5 L (32-36) g/dL RDW Std Deviation 45.0 (36.4-46.3) fL RDW Coeff of Wilver 13.6 (11.5-14.5) % Plt Count 280 (130-400) K/uL MPV 9.9 (7.4-10.4) fL Immature Gran % (Auto) 0.9 % Neut % (Auto) 87.6 % Lymph % (Auto) 5.7 % [place] % (Auto) 5.5 % Eos % (Auto) 0.3 % Baso % (Auto) 0.0 % Neut # (Auto) 19.33 H (1.4-6.5) K/uL Lymph # (Auto) 1.25 (1.2-3.4) K/uL [place] # (Auto) 1.22 H (0.11-0.59) K/uL Eos # (Auto) 0.07 (0-0.5) K/uL Baso # (Auto) 0.01 (0-0.2) K/uL Immature Gran # (Auto) 0.19 H (0.00-0.02) K/uL PT 10.4 (9.0-12.0) Seconds INR 1.0 (0.9-1.1) APTT 25.1 (21.0-31.0) Seconds PTT Ratio 0.9 Sodium 137 (136-145) mmol/L Potassium 3.8 (3.5-5.1) mmol/L Chloride 99 (98-107) mmol/L Carbon Dioxide 29 (21-32) mmol/L Anion Gap 9 (3-11) BUN 26 H (6-23) mg/dl Creatinine 1.16 (0.6-1.2) mg/dl Est Cr Clr Drug Dosing Not Reportable Est GFR ( Amer) 51.9 ml/min Est GFR (Non-Af Amer) 44.7 ml/min BUN/Creatinine Ratio 22.4 H (10-20) Glucose 103 H (70-99(Fasting)) mg/dl Calcium 9.7 (8.5-10.1) mg/dl Total Bilirubin 0.4 (0.2-1.0) mg/dl AST 24 (13-39) U/L ALT 22 (7-52) U/L Alkaline Phosphatase 95 (34-104) U/L Total Protein 8.3 (6.0-8.3) gm/dl Albumin 4.7 (3.4-5.0) gm/dl Globulin 3.6 (2.5-4.0) gm/dl Albumin/Globulin Ratio 1.3 (0.9-2) MDM Narrative Medical decision making differential diagnosis is left hip fracture dislocation muscle strain contusion. Plan is to check x-ray and labs Impression & Plan Hip fracture, left Discharge Plan Visit Data Chief Complaint: Fall Stated Complaint: fall w/ lt. hip pain ED Provider: Iron Farrell Discharge Problem: Hip fracture, left Patient Disposition: Being Evaluated by Hospitalist Forms Stand Alone Forms: My [facility] Prescriptions Prescriptions: No Action clonazepam 0.5 mg Tablet 0.5 mg PO HS RF: 0 acetaminophen [Tylenol Extra Strength] 500 mg Tablet 1,000 mg PO HS RF: 0 azelastine 137 mcg (0.1 %) Aerosol,[place] 2 spray INTRANASAL BIDM RF: 0 levothyroxine 112 mcg Tablet 112 mcg PO QAM RF: 0 omeprazole magnesium [Prilosec OTC] 20 mg Tablet,Delayed Release (Dr/Ec) 20 mg PO DAILYBB RF: 0 Spiriva with HandiHaler 18 mcg Capsule, W/Inhalation Device 1 cap INHALATION QAM RF: 0 budesonide-formoterol [Symbicort] 160-4.5 mcg/actuation Hfa Aerosol Inhaler 2 puff INHALATION BID RF: 0 aspirin 81 mg Tablet,Delayed Release (Dr/Ec) 81 mg PO QAM RF: 0 bupropion HCl 150 mg tablet extended release 24 hr 150 mg PO QAM RF: 0 cholecalciferol (vitamin D3) 50 mcg (2,000 unit) Tablet 50 mcg PO QAM RF: 0 potassium chloride 20 mEq Tablet Extended Release 20 meq PO QAM RF: 0 magnesium oxide 400 mg magnesium Tablet 400 mg PO QDD RF: 0 sertraline 100 mg tablet 100 mg PO QAM RF: 0 calcium carbonate [Calcium Antacid] 200 mg calcium (500 mg) Tablet,Chewable 200 mg PO QDD RF: 0 vancomycin 125 mg capsule 125 mg PO DAILY 30 Days Qty: 30 RF: 1 Referrals Referrals: GIOVANNA, [Primary Care Provider] - Discharge Problem: Hip fracture, left Qualifiers: Encounter type: initial encounter Fracture type: closed Qualified Code(s): S72.002A - Fracture of unspecified part of neck of left femur, initial encounter for closed fracture
[2021-10-31 02:51] LABS: Basophils # (auto) 0.01 K/uL (0-0.2); Eosinophils # (auto) 0.07 K/uL (0-0.5); Eosinophils % (auto) 0.3 %; Hematocrit (blood only) 41.6 % (37-47); Hemoglobin 13.1 g/dL (12.0-16.0); Immature Granulocytes # (auto) 0.19 K/uL (0.00-0.02); Immature Granulocytes % (auto) 0.9 %; Lymphocytes # (auto) 1.25 K/uL (1.2-3.4); Lymphocytes % (auto) 5.7 %; Mean Corpuscular Hemoglobin 28.4 pg (25-34); Mean Corpuscular Hgb Conc 31.5 g/dL (32-36); Mean Corpuscular Volume 90.2 fL (80-100); Mean Platelet Volume 9.9 fL (7.4-10.4); Monocytes # (auto) 1.22 K/uL (0.11-0.59); Monocytes % (auto) 5.5 %; Neutrophils # (auto) 19.33 K/uL (1.4-6.5); Neutrophils % (auto) 87.6 %; Platelet Count 280 K/uL (130-400); RDW Coefficient of Variation 13.6 % (11.5-14.5); Red Blood Count 4.61 M/uL (4.2-5.4); White Blood Count 22.07 K/uL (4.8-10.8)
[2021-10-31 02:59] LABS: Partial Thromboplastin Ratio 0.9; Partial Thromboplastin Time 25.1 Seconds (21.0-31.0); Prothrombin Time 10.4 Seconds (9.0-12.0)
[2021-10-31 03:09] LABS: Alanine Aminotransferase 22 U/L (7-52); Albumin Globulin Ratio 1.3 (0.9-2); Albumin Level 4.7 gm/dl (3.4-5.0); Alkaline Phosphatase 95 U/L (34-104); Anion Gap 9 (3-11); Aspartate Aminotransferase 24 U/L (13-39); BUN Creatinine Ratio 22.4 (10-20); Bilirubin,Total 0.4 mg/dl (0.2-1.0); Blood Urea Nitrogen 26 mg/dl (6-23); Calcium 9.7 mg/dl (8.5-10.1); Carbon Dioxide 29 mmol/L (21-32); Chloride 99 mmol/L (98-107); Est GFR (African American) 51.9 ml/min; Est GFR (Non-African American) 44.7 ml/min; Globulin 3.6 gm/dl (2.5-4.0); Glucose 103 mg/dl (70-99(Fasting)); Potassium 3.8 mmol/L (3.5-5.1); Sodium 137 mmol/L (136-145); Total Protein 8.3 gm/dl (6.0-8.3)
[2021-10-31] MEDS ORDERED: HYDROmorphone INJ 0.5 MG/0.5 ML SYR IV STA (04:17)
[2021-10-31 04:47] LABS: Appearance Urine Clear (Clear); Bacteria Urine Automated Negative (Negative); Bilirubin Urine Negative (Negative); Blood Urine Negative (Negative); Cast Urine Automated 0 /lpf (0-5); Color Urine Yellow; Glucose Urine UA Negative (Negative); Ketones Urine Trace (Negative); Leukocyte Esterase Urine Negative (Negative); Nitrite Urine Negative (Negative); Protein Urine 1+ (Negative); RBC Urine Automated 0-4 /hpf (0-4); Specific Gravity Urine 1.018 (1.000-1.030); Urobilinogen Urine Negative (Negative)
[2021-10-31] MEDS ORDERED: ONDANSETRON INJ 2 MG/ML 2 ML VIAL IV PRN (05:32)
[2021-10-31] MEDS ORDERED: POLYETHYLENE (MIRALAX) 17 GM PACK PO PRN (05:32)
[2021-10-31] MEDS ORDERED: ACETAMINOPHEN 325 MG TAB PO PRN (05:32)
--- NOTE | 2021-10-31 06:00 | History and Physical Report ---
DATE OF ADMISSION: 10/31/2021. CHIEF COMPLAINT: Status post fall, left hip fracture. HISTORY OF PRESENT ILLNESS: This is a 81-year-old female, resident of assisted living at [facility] with past medical history significant for chronic respiratory failure with hypoxia on 3 liters, history of COPD, bronchiectasis, history of pneumonia due to pseudomonas species, history of lung nodules, nocturnal hypoxemia, hypothyroidism, hyperlipidemia, B12 deficiency, GERD, history of C. diff colitis, currently on suppressive p.o. vancomycin, generalized osteoarthritis, migraines, dementia, bipolar disorder, generalized anxiety disorder, sleep disorder, who was brought in because of mechanical fall while trying to get into the bed, twisted her body and fell and landed on her left hip. She did not hit her head. No loss of consciousness.Brought in here and found to have the left hip fracture. The patient complains of lot of pain, seems to be restless.As per son who is in the room in the last few months her dementia is getting worse. The patient denies any shortness of breath. She constantly has cough. Denies any headache. No blurred visions, no runny nose, no sore throat. Appetite is okay. No difficulty swallowing. Ambulates with a walker. No nausea, no abdominal pain. She has chronic diarrhea and normal bladder movements. No swelling. She complains of some chest discomfort.Some what poor historian. ALLERGIES: dichloralphenazone, ISOMETHEPTENE, VERAPAMIL, ERYTHROMYCIN BASE. PAST MEDICAL HISTORY: As mentioned above. PAST SURGICAL HISTORY: Ligation of oviducts, tonsillectomy. MEDICATIONS: As per [facility], the patient is on Tylenol p.r.n., aspirin 81 mg p.o. daily, vitamin D 2000 units p.o. daily,, donepezil 5 mg p.o. daily, vancomycin 125 mg p.o. daily, Klonopin 0.5 mg in the nighttime, levothyroxine 112 mcg p.o. daily, sertraline 100 mg p.o. daily, azithromycin 250 mg 3 times a week, calcium carbonate 500 mg p.o. daily p.r.n., famotidine 20 mg p.o. b.i.d., loratadine 10 mg p.o. daily, folic acid 1 mg p.o. daily, Anoro Ellipta one inhalation daily, oxygen 3 liters all the time, latanoprost 0.005% ophthalmic solution at bedtime, magnesium oxide 400 mg p.o. daily, albuterol sulfate nebulization q. 4 hours p.r.n. FAMILY HISTORY: Significant for father has cardiac thrombus, COPD; mother has leukemia; brother has lung disorder. SOCIAL HISTORY: . Quit smoking in 1972. Smoked 1.5 packs a day for 15 years. No alcohol use. No drug use. REVIEW OF SYSTEMS: As per HPI. Rest of the review of systems is negative. PHYSICAL EXAMINATION: GENERAL: The patient is of moderate build, not in acute distress. VITAL SIGNS: Temperature afebrile, pulse 109, respiratory rate 26, blood pressure 145/76, oxygen 92% on 6 liters. HEENT: Pupils equal, round and reactive to light. Oral mucosa dry. NECK: No JVD, no neck masses. CARDIOVASCULAR: S1 and S2 heard. Tachycardia. No murmurs. RESPIRATORY SYSTEM: Normal AP diameter. No accessory muscle use. No wheezing, no crackles. ABDOMEN: Soft. Bowel sounds present, nontender, no distention. CENTRAL NERVOUS SYSTEM: No facial droop. Speech is clear. Obeys simple commands. Insight is good. EXTREMITIES: Left lower extremity shortened and externally rotated. LABORATORY DATA: WBC 22, hemoglobin 13.1, hematocrit 41.6, platelets 280. PT 10.4, INR 1, APTT 25.1. Sodium 137, potassium 3.8, chloride 99, bicarbonate 29, BUN 26, creatinine 1.1, serum glucose 103, calcium 9.7, total bilirubin 0.4, AST 24, ALT 22, alkaline phosphatase 95. Urinalysis negative. SARS-CoV-2 rapid test negative. IMAGING DATA: Chest x-ray, no acute findings. EKG: Poor quality data. Sinus tachycardia at a rate of 106, ST-T abnormalities. Consider anterolateral ischemia. ASSESSMENT AND PLAN: This is a 81-year-old female who presents with a fall and left hip fracture. 1. Fall and left hip fracture: Pain control, n.p.o., IV fluids. Ortho consult. Gentle fluids. Will get cardiac clearance. 2. Chest pain and some questionable EKG: Will get serial troponins. Consult cardiology for preoperative clearance. 3. History of C. diff colitis: On chronic suppressive therapy. 4. Leukocytosis: Will monitor. Could be from the stress reaction. 5. History of chronic respiratory failure: On 3 liters oxygen all the time. 6. History of chronic obstructive pulmonary disease, bronchiectasis, history of pseudomonas species. Continue her home inhalers. We will place on nebs p.r.n. 7. Bipolar disorder and generalized anxiety disorder: Continue her home Klonopin and sertraline. Will monitor. 8. History of hypothyroidism: Continue Synthroid. 9. History of dementia: Continue donepezil. Monitor for delirium. 10. Deep venous thrombosis prophylaxis: Could not place on sequential compression devices because of hip fracture and anticoagulation in anticipation of surgery. CODE STATUS: Level 1 full code. DISPOSITION: PT, OT prior to discharge. Social service to help with discharge planning. Job ID: [id number] [facility]
--- NOTE | 2021-10-31 06:54 | Electrocardiogram Report ---
Test Reason : Blood Pressure : / mmHG Vent. Rate : 107 BPM Atrial Rate : 107 BPM P-R Int : 206 ms QRS Dur : 086 ms QT Int : 344 ms P-R-T Axes : 079 -46 065 degrees QTc Int : 459 ms Poor data quality, interpretation may be adversely affected Sinus tachycardia Left atrial enlargement Left anterior fascicular block Possible Anteroseptal infarct (cited on or before 10-OCT-2020) ST depression in Anterolateral leads , consider ischemia Abnormal ECG When compared with ECG of 31-OCT-2021 02:28, ST depression in Anterolateral leads now present Confirmed by Kam Santillan ([id number]) on 10/31/2021 6:53:52 AM Referred By: REFERRED SELF Confirmed By:Kam Santillan
[2021-10-31 07:49] LABS: Hematocrit (blood only) 39.3 % (37-47); Hemoglobin 12.6 g/dL (12.0-16.0); Mean Corpuscular Hemoglobin 29.2 pg (25-34); Mean Corpuscular Hgb Conc 32.1 g/dL (32-36); Mean Platelet Volume 9.8 fL (7.4-10.4); Platelet Count 252 K/uL (130-400); RDW Coefficient of Variation 13.5 % (11.5-14.5); RDW Standard Deviation 44.9 fL (36.4-46.3); Red Blood Count 4.32 M/uL (4.2-5.4); White Blood Count 28.95 K/uL (4.8-10.8)
[2021-10-31] MEDS ORDERED: ALBUTEROL 0.083% NEBU SOLN 3 ML VIAL INH PRN (08:06)
[2021-10-31 08:07] LABS: Basophils # (auto) 0.01 K/uL (0-0.2); Eosinophils # (auto) 0.01 K/uL (0-0.5); Immature Granulocytes # (auto) 0.13 K/uL (0.00-0.02); Immature Granulocytes % (auto) 0.4 %; Lymphocytes # (auto) 1.34 K/uL (1.2-3.4); Lymphocytes % (auto) 4.6 %; Monocytes # (auto) 1.03 K/uL (0.11-0.59); Monocytes % (auto) 3.6 %; Neutrophils # (auto) 26.43 K/uL (1.4-6.5); Neutrophils % (auto) 91.4 %
[2021-10-31 08:11] LABS: Anion Gap 8 (3-11); BUN Creatinine Ratio 25.5 (10-20); Blood Urea Nitrogen 25 mg/dl (6-23); Calcium 9.4 mg/dl (8.5-10.1); Carbon Dioxide 29 mmol/L (21-32); Chloride 100 mmol/L (98-107); Est GFR (African American) 63.6 ml/min; Est GFR (Non-African American) 54.9 ml/min; Glucose 119 mg/dl (70-99(Fasting)); Magnesium 1.9 mg/dl (1.7-2.4); Potassium 4.2 mmol/L (3.5-5.1); Sodium 137 mmol/L (136-145)
--- NOTE | 2021-10-31 09:27 | XRay Report ---
XR chest 1V portable CLINICAL HISTORY: hip fx TECHNIQUE: Single frontal radiograph of the chest was obtained. Comparison: Comparison is made to chest radiograph 12/15/2020 FINDINGS: No lines and tubes are seen. The cardiomediastinal silhouette is normal. Extensive reticular intersti tial opacities are seen. No evidence of acute abnormality. No evidence of pleural effusion or pneumot horax. IMPRESSION: Reticular interstitial opacities are seen compatible with scarring. No airspace opacities are seen. ACT 112: Negative or not required by law. Electronically signed by: Hugh Shaffer M.D. 10/31/2021 9:26 AM
--- NOTE | 2021-10-31 09:33 | XRay Report ---
XR hip LT min 2V CLINICAL HISTORY: pain TECHNIQUE: 2 views of the left hip were obtained. Comparison: Comparison is made to pelvic radiograph 12/18/2020 FINDINGS: Acute intertrochanteric fracture of the left hip is seen. There is mild overriding of fragments. Dege nerative changes are seen in the hip joint. Soft tissue swelling is seen about the knee. IMPRESSION: Acute left femoral neck fracture with surrounding soft tissue swelling. ACT 112: Negative or not required by law. Electronically signed by: Hugh Shaffer M.D. 10/31/2021 9:30 AM
--- NOTE | 2021-10-31 10:00 | Orthopedic Consultation ---
Date of Consultation October 31, 2021 Assessment & Plan (1) Hip fracture, left: - Nonweightbearing left lower extremity -Pain control -Bedrest -DVT prophylaxis -Diet -Medical management and preop optimization -Patient awaiting medical clearance for surgical intervention. We will plan for left hip hemiarthroplasty likely 11/01. History of Present Illness Reason for Consultation: Displaced left femoral neck fracture Attending Physician: Sukhjinder Merlos MD History of Present Illness 81-year-old female presenting from her assisted living facility with a chief complaint of left hip pain. Staff reports that she had fallen while attempting to get into bed and landed on her left side. Immediately afterward she noted pain and was unable to ambulate. She was brought to [facility] emergency department where radiographs were obtained demonstrating a displaced left femoral neck fracture. She has no other complaints at this time. She was admitted to medical service and orthopedics was consulted for operative management. Allergies Allergy/AdvReac Type Severity Reaction Status Date / Time dichloralphenazone AdvReac Severe angina and Unverified 10/10/20 07:55 [From Midrin] hypertension isometheptene [From Midrin] AdvReac Severe angina and Unverified 10/10/20 07:55 hypertension verapamil AdvReac Severe angina and Unverified 10/10/20 07:55 hypertension erythromycin base AdvReac Unknown Unknown Unverified 10/10/20 07:55 Home Medications Medication Instructions Recorded Confirmed Type azelastine 137 mcg (0.1 %) nasal 2 spray INTRANASAL BIDM 03/07/20 10/10/20 History spray aerosol clonazepam 0.5 mg tablet 0.5 mg PO HS 03/07/20 10/10/20 History levothyroxine 112 mcg tablet 112 mcg PO QAM 03/07/20 10/10/20 History omeprazole magnesium 20 mg 20 mg PO DAILYBB 03/07/20 10/10/20 History tablet,delayed release (Prilosec OTC) aspirin 81 mg tablet,delayed 81 mg PO QAM 10/10/20 10/10/20 History release calcium carbonate 200 mg calcium 200 mg PO QDD 10/10/20 10/10/20 History (500 mg) chewable tablet (Calcium Antacid) cholecalciferol (vitamin D3) 50 50 mcg PO QAM 10/10/20 10/10/20 History mcg (2,000 unit) tablet magnesium oxide 400 mg PO QDD 10/10/20 10/10/20 History sertraline 100 mg tablet 100 mg PO QAM 10/10/20 10/10/20 History vancomycin 125 mg capsule 125 mg PO DAILY 30 Days #30 cap 12/21/20 Rx Pepcid 20 mg PO BID 10/31/21 10/31/21 History albuterol sulfate 2.5 mg INHALATION QID PRN 10/31/21 10/31/21 History donepezil 5 mg tablet 5 mg PO DAILY 10/31/21 10/31/21 History folic acid 1 mg tablet 1 mg PO DAILY 10/31/21 10/31/21 History latanoprost 0.005 % eye drops 1 drp OPHTHALMIC (EYE) PM 10/31/21 10/31/21 History (Xalatan) umeclidinium 62.5 mcg-vilanterol 1 inh INHALATION DAILY 10/31/21 10/31/21 History 25 mcg/actuation powdr for inhalation (Anoro Ellipta) Patient History Medical History Bronchiectasis Confusion COPD (chronic obstructive pulmonary disease) Dementia Depression Diarrhea Double vision Encephalopathy Fall Fall Head trauma Hypothyroid Leukocytosis Migraine Nausea & vomiting Pulmonary nodule Sepsis SOB (shortness of breath) Transient cerebral ischemia Surgical History History of tonsillectomy History of tubal ligation Family History Other Family history non-contributory Social History Smoking Status: Former smoker Tobacco Type: Cigarettes Hx Alcohol Use: No Hx Substance Use: No Preferred Language: Tajik Communication Ability: Effective School Traffic Supervisor Required: No Beliefs That Will Affect Care: None marital status: / Current Living Situation: Alone and Personal Care Facility Feels Safe at Home: Yes Assistive Devices: Glasses Physical Exam Constitutional: General: No acute distress, resting comfortably in bed. Oriented to self Musculoskeletal: Left lower extremity + Logroll -Thigh soft and compressible -Sensation intact to light touch s/spn/dpn/t/s -Fires ta/ehl/gsc + dp/pt pulses Results & Data ([facility]) Vital Signs (Past 12 Hours) Vital Signs Pulse Resp BP Pulse Ox 10/31/21 06:00 106 H 24 124/73 95 10/31/21 05:00 107 H 27 H 136/71 89 L 10/31/21 04:50 107 H 26 H 90 10/31/21 04:40 109 H 26 H 145/76 H 90 10/31/21 04:30 109 H 26 H 145/76 H 92 10/31/21 03:26 109 H 38 H 180/96 H 92 10/31/21 02:26 103 H 32 H 169/95 H 93 Diagnostic Findings 2 views of the left hip demonstrate a completely displaced transcervical left femoral neck fracture. (1) Hip fracture, left Encounter type: initial encounter Fracture type: closed Qualified Code(s): S72.002A - Fracture of unspecified part of neck of left femur, initial encounter for closed fracture
[2021-10-31] MEDS: D5W AND 1/2NSS 1,000 ML IV SCH ×2 (10:42→18:02)
[2021-10-31] MEDS: UMECLIDINIUM/VILANTEROL 62.5/25MCG 7 PUFFS/INHALER INH SCH (10:44)
[2021-10-31] MEDS: CHOLECALCIFEROL 1,000 UNITS 25 MCG TAB PO SCH (10:46)
[2021-10-31] MEDS: LEVOTHYROXINE SODIUM 112 MCG TABLET PO SCH (10:46)
[2021-10-31] MEDS: FOLIC ACID 1 MG TAB PO SCH (10:47)
[2021-10-31] MEDS: VANCOMYCIN HCL 125 MG/2.5ML SOLN PO SCH (10:47)
[2021-10-31] MEDS: FAMOTIDINE 20 MG TAB PO SCH ×2 (10:47→20:51)
[2021-10-31] MEDS: DONEPEZIL HCL 5 MG TAB PO SCH (10:47)
[2021-10-31] MEDS: SERTRALINE HCL 100 MG TABLET PO SCH (10:47)
[2021-10-31] MEDS: ASPIRIN 81 MG ECTAB PO SCH (10:47)
[2021-10-31] MEDS: RASPBERRY SYRUP 5 ML UDP PO SCH (10:47)
[2021-10-31] MEDS ORDERED: ASPIRIN 81 MG CHEW PO ONE (12:10)
[2021-10-31] MEDS: METOPROLOL TARTRATE 25 MG TAB PO SCH ×2 (12:56→21:55)
--- NOTE | 2021-10-31 14:02 | Cardiology Consultation ---
Date of Consultation October 31, 2021 Assessment & Plan (1) Non-ST elevation (NSTEMI) myocardial infarction: (2) Hip fracture, left: (3) COPD (chronic obstructive pulmonary disease): (4) Dementia: 81-year-old female admitted after mechanical fall. ECG on admission demonstrating significant anterior lateral ST depressions consistent with ischemia. Troponin trending upward suggesting NSTEMI. Preliminary review of bedside echocardiogram revealing an apical anterior and lateral wall motion abnormality. Recommend addition of aspirin 325 mg x 1 now and low-dose beta- cj therapy, metoprolol tartrate 12.5 mg twice daily. Intravenous heparin indicated, however, I have concerns regarding potential bleeding and recent fall. Recommend CT of the head to exclude intracranial pathology/bleeding. Case discussed with orthopedic surgery. They feel there is no contraindication to IV heparin from their perspective. Patient is considered high risk for orthopedic surgery. She carries significant comorbidities including oxygen dependent COPD, dementia, and chronic cachexia/frailty. Hip surgery is necessary to control pain and allow for ambulation in the future. Recommend 48-72 hours of intravenous heparin (pending review of CT scan), aspirin, beta-cj, and statin therapy. If patient remains stable, without recurrent angina, dysrhythmia, or CHF, consider proceeding with high risk orthopedic surgery later this week. I spent 20 minutes on telephone with patient's son, medical power of dry cleaning teacher, Mak Chi. All questions answered to his satisfaction. He understands patient's overall clinical situation and significant cardiovascular risk as we move forward. History of Present Illness Reason for Consultation: pre op Requesting Physician: Dr. Anderson Attending Physician: Sukhjinder Merlos MD History of Present Illness 81-year-old female with a history of oxygen dependent COPD, chronic bronchiectasis, Pseudomonas pneumonia, dementia, nocturnal hypoxemia, underweight, recurrent C. difficile colitis, and bipolar type II presented to the emergency department after falling out of bed. She is a poor historian due to underlying dementia. Currently a resident of [facility]. Does not recall events leading to her ER presentation. Per chart review, patient attempted to turn over in bed and fell to the floor. X-ray confirming left femoral neck fracture with surrounding soft tissue swelling. Hospitalist H&P reporting chest discomfort on admission which patient confirms. States she is currently pain-free. Review of admission ECG demonstrates anterior lateral ST depressions consistent with ischemia at 2:28AM. Repeat ECG performed at the time of my bedside evaluation 11:36 AM, ST segments have returned to baseline. She is currently pain-free. Pain controlled with 75 mcg of intravenous fentanyl and Dilaudid. Offers no concerns/complaints. Allergies Allergy/AdvReac Type Severity Reaction Status Date / Time dichloralphenazone AdvReac Severe angina and Unverified 10/10/20 07:55 [From Midrin] hypertension isometheptene [From Midrin] AdvReac Severe angina and Unverified 10/10/20 07:55 hypertension verapamil AdvReac Severe angina and Unverified 10/10/20 07:55 hypertension erythromycin base AdvReac Unknown Unknown Unverified 10/10/20 07:55 Home Medications Medication Instructions Recorded Confirmed Type azelastine 137 mcg (0.1 %) nasal 2 spray INTRANASAL BIDM 03/07/20 10/10/20 History spray aerosol clonazepam 0.5 mg tablet 0.5 mg PO HS 03/07/20 10/10/20 History levothyroxine 112 mcg tablet 112 mcg PO QAM 03/07/20 10/10/20 History omeprazole magnesium 20 mg 20 mg PO DAILYBB 03/07/20 10/10/20 History tablet,delayed release (Prilosec OTC) aspirin 81 mg tablet,delayed 81 mg PO QAM 10/10/20 10/10/20 History release calcium carbonate 200 mg calcium 200 mg PO QDD 10/10/20 10/10/20 History (500 mg) chewable tablet (Calcium Antacid) cholecalciferol (vitamin D3) 50 50 mcg PO QAM 10/10/20 10/10/20 History mcg (2,000 unit) tablet magnesium oxide 400 mg PO QDD 10/10/20 10/10/20 History sertraline 100 mg tablet 100 mg PO QAM 10/10/20 10/10/20 History vancomycin 125 mg capsule 125 mg PO DAILY 30 Days #30 cap 12/21/20 Rx Pepcid 20 mg PO BID 10/31/21 10/31/21 History albuterol sulfate 2.5 mg INHALATION QID PRN 10/31/21 10/31/21 History donepezil 5 mg tablet 5 mg PO DAILY 10/31/21 10/31/21 History folic acid 1 mg tablet 1 mg PO DAILY 10/31/21 10/31/21 History latanoprost 0.005 % eye drops 1 drp OPHTHALMIC (EYE) PM 10/31/21 10/31/21 History (Xalatan) umeclidinium 62.5 mcg-vilanterol 1 inh INHALATION DAILY 10/31/21 10/31/21 History 25 mcg/actuation powdr for inhalation (Anoro Ellipta) Patient History Medical History Bronchiectasis Confusion COPD (chronic obstructive pulmonary disease) Dementia Depression Diarrhea Double vision Encephalopathy Fall Fall Head trauma Hypothyroid Leukocytosis Migraine Nausea & vomiting Pulmonary nodule Sepsis SOB (shortness of breath) Transient cerebral ischemia Surgical History History of tonsillectomy History of tubal ligation Family History Other Family history non-contributory Social History Smoking Status: Former smoker Tobacco Type: Cigarettes Second Hand Exposure: No; Do You Dip or Chew Tobacco: No; Tobacco Cessation Education Requested by Patient: No Hx Alcohol Use: No Hx Substance Use: No Preferred Language: Thai Communication Ability: Effective Meteorological Aide Required: No Beliefs That Will Affect Care: None marital status: / Current Living Situation: Alone and Personal Care Facility Other Information That Helps Us Care for You: No Feels Safe at Home: Yes Safety Concerns: Feels Safe At This Time Assistive Devices: Glasses and Walker Review of Systems Review of Systems: All systems reviewed & are unremarkable except as noted in Subjective Physical Exam Constitutional: + ill appearing and + cachectic; no acute distress Respiratory: no labored breathing, no retractions and does not use accessory muscles Auscultation: + diminished lung sounds (Bilateral); no crackles, no rales, no rhonchi and no wheezes Cardiovascular: Rate/Rhythm: regular rate and regular rhythm Heart Sounds: normal S1 and normal S2; no murmur Vessels: no JVD and + radial pulses abnormal Extremities: no edema Gastrointestinal (Abdomen): Inspection/Auscultation: abdomen normal to inspection and normal bowel sounds; abdomen not distended Percussion/Palpation: abdomen soft; abdomen nontender, no guarding and abdomen not rigid Neurologic: CN's II-XI intact bilaterally and moves all extremities; no focal motor deficits Motor/Sensory: no tremor Psychiatric: Orientation: oriented to person Results & Data ([facility]) Vital Signs (Past 12 Hours) Vital Signs Pulse Pulse Resp BP BP Pulse Ox 10/31/21 10:30 102 H 24 137/89 97 10/31/21 06:00 106 H 24 124/73 95 10/31/21 05:00 107 H 27 H 136/71 89 L 10/31/21 04:50 107 H 26 H 90 10/31/21 04:40 109 H 26 H 145/76 H 90 10/31/21 04:30 109 H 26 H 145/76 H 92 10/31/21 03:26 109 H 38 H 180/96 H 92 10/31/21 02:26 103 H 32 H 169/95 H 93 (1) Dementia Alzheimer's disease onset: unspecified onset Dementia behavioral disturbance: without behavioral disturbance Dementia type: Alzheimer's disease Qualified Code(s): G30.9 - Alzheimer's disease, unspecified; F02.80 - Dementia in other diseases classified elsewhere without behavioral disturbance (2) COPD (chronic obstructive pulmonary disease) COPD type: unspecified COPD Qualified Code(s): J44.9 - Chronic obstructive pulmonary disease, unspecified (3) Hip fracture, left Encounter type: initial encounter Fracture type: closed Qualified Code(s): S72.002A - Fracture of unspecified part of neck of left femur, initial encounter for closed fracture
--- NOTE | 2021-10-31 16:39 | Communication Note ---
Date of Service: October 31, 2021 81-year-old female with significant past medical history including bronchiectasis, COPD on home oxygen, bipolar 2 disorder, chronic respiratory failure with hypoxia, hyperlipidemia, hypothyroidism, generalized anxiety disorder, and also history of C. difficile colitis on suppressive therapy and dementia apparently has had a fall to the personal-custodial and brought in with fracture of the left femoral neck. Subsequently she was noted to have increasing troponins likely has non-ST elevation [place]. She was evaluated by insurance loss adjuster and will be given heparin following a negative CT scan. She will be seen by Ortho and probable surgery after 48 hours. She has increased risk of surgery and that was discussed with the her son by me and also by the the medical center ologist. She remained hemodynamically stable and pleasantly confused without any acute distress. Full progress note will be there tomorrow. Dr Cindy Merlos
[2021-10-31] MEDS ORDERED: AZELASTINE HCL 0.1% NASAL 200 SPRAYS/27,400 MCG BTL SCH (17:00)
[2021-10-31] MEDS: MAGNESIUM OXIDE 400 MG TAB PO SCH (17:31)
[2021-10-31] MEDS: CALCIUM CARBONATE 500 MG CHEWABLE TAB PO SCH (17:31)
[2021-10-31] MEDS: AZELASTINE HCL 0.1% NASAL 200 SPRAYS/27,400 MCG BTL SCH (17:32)
[2021-10-31] MEDS ORDERED: Heparin IV Adult Wt-Based Low-Dose *NO* Bolus Protocol IV SCH (18:08)
--- NOTE | 2021-10-31 18:24 | CT Scan Report ---
CT head/brain wo con CLINICAL HISTORY: confusion, fall Technique: Contiguous axial CT images of the head were acquired from the base of the skull to the von savana without intravenous contrast administration. Images were viewed in brain, subdural and bone [facility]. Automated dose lowering techniques and/or adjustment according to patient size were utilized for this exam. Comparison: Comparison is made to CT head 12/15/2020 Findings: Areas of decreased attenuation are present in the periventricular and subcortical white matter bilate rally consistent with small vessel ischemic disease. Generalized cerebral atrophy with commensurate e nlargement of the ventricles, sulci, and cisterns is also present. There is no acute intracranial hem orrhage or evidence of acute territorial infarction. No shift of the midline structures, mass effect, or extra-axial abnormalities are shown. Atherosclerotic calcifications are present in the intracran ial segments of the internal carotid arteries. Imaged portions of the paranasal sinuses and mastoid air cells are clear. The orbits appear normal. There are no acute fractures of the calvaria or scalp swelling. Impression: No acute intracranial hemorrhage, no evidence of acute territorial infarction or other acute intracra nial disease process. ACT 112: Negative or not required by law. Electronically signed by: Hugh Shaffer M.D. 10/31/2021 6:22 PM
[2021-10-31] MEDS: HEPARIN SODIUM/DEXTROSE 25,000 UNITS/500 ML BAG IV SCH (20:00)
[2021-10-31 20:09] LABS: Partial Thromboplastin Time 27.3 Seconds (21.0-31.0); Prothrombin Time 10.9 Seconds (9.0-12.0)
[2021-10-31 20:17] LABS: Basophils # (auto) 0.02 K/uL (0-0.2); Basophils % (auto) 0.1 %; Eosinophils # (auto) 0.13 K/uL (0-0.5); Eosinophils % (auto) 0.7 %; Hematocrit (blood only) 40.5 % (37-47); Hemoglobin 12.9 g/dL (12.0-16.0); Immature Granulocytes # (auto) 0.07 K/uL (0.00-0.02); Immature Granulocytes % (auto) 0.4 %; Lymphocytes % (auto) 3.7 %; Mean Corpuscular Hemoglobin 28.3 pg (25-34); Mean Corpuscular Hgb Conc 31.9 g/dL (32-36); Mean Corpuscular Volume 88.8 fL (80-100); Mean Platelet Volume 10.2 fL (7.4-10.4); Monocytes # (auto) 1.26 K/uL (0.11-0.59); Monocytes % (auto) 6.7 %; Neutrophils # (auto) 16.54 K/uL (1.4-6.5); Neutrophils % (auto) 88.4 %; Platelet Count 270 K/uL (130-400); RDW Coefficient of Variation 13.5 % (11.5-14.5); RDW Standard Deviation 43.9 fL (36.4-46.3); Red Blood Count 4.56 M/uL (4.2-5.4); White Blood Count 18.72 K/uL (4.8-10.8)
[2021-10-31] MEDS: clonazePAM 0.5 MG TAB PO SCH (20:51)
[2021-10-31] MEDS: LATANOPROST 0.005% OP SOLN 2.5 ML BTL OP SCH (20:51)
[2021-11-01 02:07] LABS: Basophils # (auto) 0.03 K/uL (0-0.2); Basophils % (auto) 0.2 %; Eosinophils # (auto) 0.14 K/uL (0-0.5); Eosinophils % (auto) 0.7 %; Hematocrit (blood only) 37.9 % (37-47); Hemoglobin 11.9 g/dL (12.0-16.0); Immature Granulocytes # (auto) 0.07 K/uL (0.00-0.02); Immature Granulocytes % (auto) 0.4 %; Lymphocytes # (auto) 0.66 K/uL (1.2-3.4); Lymphocytes % (auto) 3.4 %; Mean Corpuscular Hemoglobin 27.7 pg (25-34); Mean Corpuscular Hgb Conc 31.4 g/dL (32-36); Mean Corpuscular Volume 88.3 fL (80-100); Mean Platelet Volume 9.7 fL (7.4-10.4); Monocytes # (auto) 1.37 K/uL (0.11-0.59); Monocytes % (auto) 7.1 %; Neutrophils # (auto) 16.97 K/uL (1.4-6.5); Neutrophils % (auto) 88.2 %; Platelet Count 233 K/uL (130-400); RDW Coefficient of Variation 13.5 % (11.5-14.5); RDW Standard Deviation 43.4 fL (36.4-46.3); Red Blood Count 4.29 M/uL (4.2-5.4); White Blood Count 19.24 K/uL (4.8-10.8)
[2021-11-01] MEDS: D5W AND 1/2NSS 1,000 ML IV SCH ×2 (02:07→13:48)
[2021-11-01 02:29] LABS: BUN Creatinine Ratio 19.6 (10-20); Calcium 9.3 mg/dl (8.5-10.1); Creatinine Clr Calc Pharmacy 37.2 ml/min; Est GFR (African American) 64.4 ml/min; Est GFR (Non-African American) 55.5 ml/min; Potassium 4.3 mmol/L (3.5-5.1)
[2021-11-01 02:30] LABS: Partial Thromboplastin Ratio 1.3; Partial Thromboplastin Time 35.6 Seconds (21.0-31.0)
[2021-11-01] MEDS ORDERED: HEPARIN IV BOLUS 2,000 UNITS in SYRINGE 0 ML IV ONE (03:45)
[2021-11-01] MEDS: HYDROmorphone INJ 0.5 MG/0.5 ML SYR IV PRN (04:21)
[2021-11-01] MEDS: PANTOprazole 40 MG TAB PO SCH (04:22)
[2021-11-01] MEDS: LEVOTHYROXINE SODIUM 112 MCG TABLET PO SCH (04:22)
[2021-11-01] MEDS: METOPROLOL TARTRATE 25 MG TAB PO SCH ×2 (07:41→20:01)
[2021-11-01] MEDS: DONEPEZIL HCL 5 MG TAB PO SCH (07:43)
[2021-11-01] MEDS: SERTRALINE HCL 100 MG TABLET PO SCH (07:43)
[2021-11-01] MEDS: FOLIC ACID 1 MG TAB PO SCH (07:43)
[2021-11-01] MEDS: CHOLECALCIFEROL 1,000 UNITS 25 MCG TAB PO SCH (07:43)
[2021-11-01] MEDS: ASPIRIN 81 MG ECTAB PO SCH (07:43)
[2021-11-01] MEDS: FAMOTIDINE 20 MG TAB PO SCH ×2 (07:44→19:59)
[2021-11-01] MEDS: VANCOMYCIN HCL 125 MG/2.5ML SOLN PO SCH (07:45)
[2021-11-01] MEDS: AZELASTINE HCL 0.1% NASAL 200 SPRAYS/27,400 MCG BTL SCH ×2 (07:45→15:57)
[2021-11-01] MEDS: RASPBERRY SYRUP 5 ML UDP PO SCH (07:45)
[2021-11-01] MEDS: UMECLIDINIUM/VILANTEROL 62.5/25MCG 7 PUFFS/INHALER INH SCH (07:46)
--- NOTE | 2021-11-01 08:10 | Electrocardiogram Report ---
Test Reason : Blood Pressure : / mmHG Vent. Rate : 103 BPM Atrial Rate : 103 BPM P-R Int : 220 ms QRS Dur : 080 ms QT Int : 360 ms P-R-T Axes : 076 -05 076 degrees QTc Int : 471 ms Sinus tachycardia with 1st degree A-V block Left atrial enlargement Possible Old Septal infarct (cited on or before 10-OCT-2020) Abnormal ECG When compared with ECG of 31-OCT-2021 02:28, QRS axis Shifted right ST no longer depressed in Inferior leads ST no longer depressed in Anterolateral leads Confirmed by Kam Santillan ([id number]) on 11/01/2021 8:09:53 AM Referred By: REFERRED SELF Confirmed By:Kam Santillan
--- NOTE | 2021-11-01 08:42 | Electrocardiogram Report ---
Test Reason : Blood Pressure : / mmHG Vent. Rate : 090 BPM Atrial Rate : 090 BPM P-R Int : 224 ms QRS Dur : 084 ms QT Int : 394 ms P-R-T Axes : 077 -37 082 degrees QTc Int : 481 ms Poor data quality, interpretation may be adversely affected Sinus rhythm with 1st degree A-V block with Premature ventricular complexes Left atrial enlargement Left axis deviation Possible Old Anteroseptal infarct (cited on or before 10-OCT-2020) Abnormal ECG When compared with ECG of 31-OCT-2021 12:01, Premature ventricular complexes now present Otherwise no significant change Confirmed by Kam Santillan ([id number]) on 11/01/2021 8:42:13 AM Referred By: REFERRED SELF Confirmed By:Kam Santillan
--- NOTE | 2021-11-01 09:16 | Communication Note ---
Date of Service: November 01, 2021 [address] Mrs. Chi's case with Dr. See this AM. He would like a definite 48 hours of Heparin to be run prior to any surgery. We will plan for surgery on at this time.
--- NOTE | 2021-11-01 10:04 | Cardiology Progress Note ---
Date of Service November 01, 2021 Assessment & Plan (1) Non-ST elevation (NSTEMI) myocardial infarction: (2) Hip fracture, left: (3) COPD (chronic obstructive pulmonary disease): (4) Dementia: Plan: 81-year-old female admitted with NSTEMI and hip fracture. Recommend medical management with intravenous heparin, aspirin, beta-cj, and statin therapy. Continue IV heparin for 48 hours. If she remains stable from a cardiovascular perspective, she will proceed with orthopedic surgery on . Patient is considered high risk for orthopedic surgery with significant comorbidities including oxygen dependent COPD, dementia, and chronic cachexia/frailty. Findings and recommendations discussed with patient's son, Mak, via telephone. Admission and Anticipated Discharge Date Admission Date: October 31, 2021 Subjective Patient seen and examined at the bedside. Poor historian due to underlying dementia. Denies chest or hip discomfort. ECG this morning without ST depression. Telemetry reveals sinus rhythm with rare PVCs. No orthopnea or PND. No lower extremity edema. Review of Systems Review of Systems: All systems reviewed & are unremarkable except as noted in Subjective Physical Exam Constitutional: + ill appearing and + cachectic; no acute distress Respiratory: no labored breathing, no retractions and does not use accessory muscles Auscultation: + diminished lung sounds (Bilateral); no crackles, no rales, no rhonchi and no wheezes Cardiovascular: Rate/Rhythm: regular rate and regular rhythm Heart Sounds: normal S1 and normal S2; no murmur Vessels: no JVD and + radial pulses abnormal Extremities: no edema Gastrointestinal (Abdomen): Inspection/Auscultation: abdomen normal to inspection and normal bowel sounds; abdomen not distended Percussion/Palpation: abdomen soft; abdomen nontender, no guarding and abdomen not rigid Neurologic: CN's II-XI intact bilaterally and moves all extremities; no focal motor deficits Motor/Sensory: no tremor Psychiatric: Orientation: oriented to person Results & Data ([facility]) Vital Signs (Past 12 Hours) Vital Signs Temp Pulse Pulse Pulse Resp BP Pulse Ox 11/01/21 09:43 82 11/01/21 07:32 37.0 C 85 20 126/68 98 11/01/21 05:37 89 11/01/21 03:35 91 H 28 H 148/49 H 94 10/31/21 22:57 37.0 C 89 18 150/70 H 92 (1) Dementia Alzheimer's disease onset: unspecified onset Dementia behavioral disturbance: without behavioral disturbance Dementia type: Alzheimer's disease Qualified Code(s): G30.9 - Alzheimer's disease, unspecified; F02.80 - Dementia in other diseases classified elsewhere without behavioral disturbance (2) COPD (chronic obstructive pulmonary disease) COPD type: unspecified COPD Qualified Code(s): J44.9 - Chronic obstructive pulmonary disease, unspecified (3) Hip fracture, left Encounter type: initial encounter Fracture type: closed Qualified Code(s): S72.002A - Fracture of unspecified part of neck of left femur, initial encounter for closed fracture
[2021-11-01 10:16] LABS: Partial Thromboplastin Ratio 1.6; Partial Thromboplastin Time 43.4 Seconds (21.0-31.0)
--- NOTE | 2021-11-01 15:18 | Electrocardiogram Report ---
Test Reason : Blood Pressure : / mmHG Vent. Rate : 080 BPM Atrial Rate : 080 BPM P-R Int : 230 ms QRS Dur : 084 ms QT Int : 410 ms P-R-T Axes : 076 -13 077 degrees QTc Int : 472 ms Sinus rhythm with 1st degree A-V block Left atrial enlargement Possible Old Anteroseptal infarct (cited on or before 10-OCT-2020) Abnormal ECG When compared with ECG of 01-NOV-2021 04:13, Premature ventricular complexes are no longer Present Confirmed by Kam Santillan ([id number]) on 11/01/2021 3:18:25 PM Referred By: REFERRED SELF Confirmed By:Kam Santillan
[2021-11-01] MEDS: CALCIUM CARBONATE 500 MG CHEWABLE TAB PO SCH (15:56)
[2021-11-01] MEDS: MAGNESIUM OXIDE 400 MG TAB PO SCH (15:57)
[2021-11-01 16:25] LABS: Partial Thromboplastin Ratio 1.5; Partial Thromboplastin Time 40.2 Seconds (21.0-31.0)
--- NOTE | 2021-11-01 19:29 | Hospitalist Progress Note ---
Date of Service November 01, 2021 Assessment & Plan (1) Non-ST elevation (NSTEMI) myocardial infarction: Plan: Admitted with history of fall and noted to have increased troponin on admission so this year Serial troponin noted to be elevated without any change in the EKG Echo of the heart showed-EF 55 to 60%, moderate sized apical and lateral wall motion abnormality with hypokinesis of the segments, aortic valve sclerosis mild without stenosis, mild tricuspid regurgitation and estimated systolic pulmonary pressure is 48 mmHg Appreciate cardiology input and recommendation Has been on intravenous heparin which will be continued for 48 hours, aspirin, beta-cj and statin Carries more than average risk of surgery which will be proceeded on second of next month Remains free of any pain today (2) Hip fracture, left: Plan: Status post fall with left hip fracture Appreciate Ortho input and recommendation (3) COPD (chronic obstructive pulmonary disease): Plan: History of chronic respiratory failure secondary to COPD and bronchiectasis on home oxygen No acute exacerbation of her symptoms (4) Bronchiectasis: (5) Hypothyroid: Plan: Continue supplement (6) Dementia: Plan: Dementia which has been progressing as per the outpatient neurological note No acute delirium (7) Depression: Plan: No acute symptoms DVT prophylaxis IV heparin for now CODE STATUS She has a living will which is in chart Please for full code right now After surgery with a stabilization the course can be changed to DNR/DNI as per her will Admission and Anticipated Discharge Date Admission Date: October 31, 2021 Subjective 11/01/2021 The patient was seen and examined in medical telemetry unit in presence of the son She remains stable and pleasantly confused She has severe dementia and cannot communicate normally Review of Systems Review of Systems: Unobtainable due to cognitive status Physical Exam Physical Exam: Lying in bed without any acute distress Constitutional: + ill appearing and average body habitus Eyes: PERRL, conjunctivae normal, anicteric sclerae ENMT: external ear and nose normal, oropharynx normal Neck: trachea midline, no thyromegaly Respiratory: no respiratory distress Auscultation: + diminished lung sounds and + crackles (Minimal crackles at the bases) Cardiovascular: Rate/Rhythm: regular rate and regular rhythm; not tachycardic Heart Sounds: normal S1 and normal S2; no murmur Extremities: no edema Gastrointestinal (Abdomen): Inspection/Auscultation: abdomen not distended Percussion/Palpation: abdomen soft; abdomen nontender Musculoskeletal: No acute arthritis but movement of the left lower extremity causes pain in the left hip Neurologic: Alert and awake. Severe dementia. Moving all limbs Lymphatic: no cervical or axillary lymphadenopathy Results & Data Results & Data ([facility]) Vital Signs (Past 12 Hours) Vital Signs Temp Pulse Pulse Resp BP Pulse Ox 11/01/21 18:38 37.2 C 93 H 20 135/69 97 11/01/21 15:58 92 H 11/01/21 14:49 36.9 C 91 H 20 148/75 H 96 11/01/21 11:47 36.3 C L 84 20 135/71 96 11/01/21 09:43 82 11/01/21 07:32 37.0 C 85 20 126/68 98 Laboratory Results Short CBC 10/31/21 11/01/21 Range/Units 19:39 02:01 WBC 18.72 H D 19.24 H (4.8-10.8) K/uL Hgb 12.9 11.9 L (12.0-16.0) g/dL Hct 40.5 37.9 (37-47) % Plt Count 270 233 (130-400) K/uL BMP 11/01/21 02:01 Sodium 134 L Potassium 4.3 Chloride 98 Carbon Dioxide 31 BUN 19 Creatinine 0.97 Glucose 139 H Calcium 9.3 Medications Administered Current Inpatient Medications Acetaminophen (Acetaminophen 325 Mg Tab) 650 mg PO Q4H PRN PRN Reason: pain/fever Stop: 11/30/21 05:31 Albuterol (Albuterol 0.083% Nebu Soln 3 Ml Vial) 2.5 mg INH QID PRN; Protocol PRN Reason: Shortness Of Breath Or Wheezing Stop: 11/30/21 08:05 Aspirin (Aspirin 81 Mg Ectab) 81 mg PO QAM [facility] Stop: 11/30/21 08:59 Last Admin: 11/01/21 07:43 Dose: 81 mg Documented by: Azelastine HCl (Azelastine Hcl 0.1% Nasal 200 Sprays/27,400 Mcg Btl) 2 sprays NA BIDM [facility] Stop: 11/30/21 16:59 Last Admin: 11/01/21 15:57 Dose: 2 sprays Documented by: Calcium Carbonate (Calcium Carbonate 500 Mg Chewable Tab) 500 mg PO QDD [facility] Stop: 11/30/21 16:29 Last Admin: 11/01/21 15:56 Dose: 500 mg Documented by: Clonazepam (Clonazepam 0.5 Mg Tab) 0.5 mg PO HS [facility] Stop: 11/30/21 20:59 Last Admin: 10/31/21 20:51 Dose: 0.5 mg Documented by: Donepezil HCl (Donepezil Hcl 5 Mg Tab) 5 mg PO DAILY [facility] Stop: 11/30/21 08:59 Last Admin: 11/01/21 07:43 Dose: 5 mg Documented by: Famotidine (Famotidine 20 Mg Tab) 20 mg PO BID [facility] Stop: 11/30/21 08:59 Last Admin: 11/01/21 07:44 Dose: 20 mg Documented by: Folic Acid (Folic Acid 1 Mg Tab) 1 mg PO DAILY DAW[facility] Stop: 11/30/21 08:59 Last Admin: 11/01/21 07:43 Dose: 1 mg Documented by: Hydromorphone HCl (Hydromorphone Inj 0.5 Mg/0.5 Ml Syr) 0.5 mg IV Q3H PRN PRN Reason: Pain Stop: 11/14/21 05:31 Last Admin: 11/01/21 04:21 Dose: 0.5 mg Documented by: Dextrose/Sodium Chloride (D5w And 1/2nss) 1,000 mls @ 80 mls/hr IV .[id number] [facility] Stop: 11/30/21 05:31 Last Admin: 11/01/21 13:48 Dose: 80 mls/hr Documented by: Heparin Sodium/Dextrose (Heparin Sodium/Dextrose) 25,000 units in 500 mls @ 16 mls/hr IV .Q24H [facility]; Protocol Stop: 11/30/21 18:14 Last Titration: 11/01/21 18:56 Dose: 800 units/hr, 16 mls/hr Documented by: Latanoprost (Latanoprost 0.005% Op Soln 2.5 Ml Btl) 1 drops OP PM [facility] Stop: 11/30/21 20:59 Last Admin: 10/31/21 20:51 Dose: 1 drops Documented by: Levothyroxine Sodium (Levothyroxine Sodium 112 Mcg Tablet) 112 mcg PO DAILYBB [facility] Stop: 11/30/21 08:59 Last Admin: 11/01/21 04:22 Dose: 112 mcg Documented by: Magnesium Oxide (Magnesium Oxide 400 Mg Tab) 400 mg PO QDD [facility] Stop: 11/30/21 16:29 Last Admin: 11/01/21 15:57 Dose: 400 mg Documented by: Metoprolol Tartrate (Metoprolol Tartrate 25 Mg Tab) 12.5 mg PO BID [facility] Stop: 11/30/21 12:14 Last Admin: 11/01/21 07:41 Dose: 12.5 mg Documented by: Ondansetron HCl (Ondansetron Inj 2 Mg/Ml 2 Ml Vial) 4 mg IV Q6H PRN PRN Reason: Nausea Stop: 11/30/21 05:31 Pantoprazole Sodium (Pantoprazole 40 Mg Tab) 40 mg PO DAILYBB [facility] Stop: 12/01/21 06:29 Last Admin: 11/01/21 04:22 Dose: 40 mg Documented by: Polyethylene Glycol (Polyethylene (Miralax) 17 Gm Pack) 17 gm PO DAILY PRN PRN Reason: Constipation Stop: 11/30/21 05:31 Raspberry (Raspberry Syrup 5 Ml Udp) 5 ml PO DAILY [facility] Stop: 11/10/21 08:59 Last Admin: 11/01/21 07:45 Dose: 5 ml Documented by: Sertraline HCl (Sertraline Hcl 100 Mg Tablet) 100 mg PO QAM [facility] Stop: 11/30/21 08:59 Last Admin: 11/01/21 07:43 Dose: 100 mg Documented by: Umeclidinium/Vilanterol (Umeclidinium/Vilanterol 62.5/25mcg 7 Puffs/Inhaler) 1 puffs INH DAILY [facility] Stop: 11/30/21 08:59 Last Admin: 11/01/21 07:46 Dose: 1 puffs Documented by: Vancomycin HCl (Vancomycin Hcl 125 Mg/2.5ml Soln) 125 mg PO DAILY [facility] Stop: 11/30/21 08:59 Last Admin: 11/01/21 07:45 Dose: 125 mg Documented by: Vitamin D (Cholecalciferol 1,000 Units 25 Mcg Tab) 2,000 units PO QAM [facility] Stop: 11/30/21 08:59 Last Admin: 11/01/21 07:43 Dose: 2,000 units Documented by: (1) Hip fracture, left Encounter type: initial encounter Fracture type: closed Qualified Code(s): S72.002A - Fracture of unspecified part of neck of left femur, initial encounter for closed fracture (2) COPD (chronic obstructive pulmonary disease) COPD type: unspecified COPD Qualified Code(s): J44.9 - Chronic obstructive pulmonary disease, unspecified (3) Bronchiectasis Bronchiectasis type: uncomplicated Qualified Code(s): J47.9 - Bronchiectasis, uncomplicated (4) Hypothyroid Hypothyroidism type: unspecified Qualified Code(s): E03.9 - Hypothyroidism, unspecified (5) Dementia Dementia type: Alzheimer's disease Alzheimer's disease onset: unspecified onset Dementia behavioral disturbance: without behavioral disturbance Geraldo lified Code(s): G30.9 - Alzheimer's disease, unspecified; F02.80 - Dementia in other diseases classified elsewhere without behavioral disturbance (6) Depression Depression Type: major depressive disorder Major depression recurrence: unspecified whether recurrent Active/Remission status: remission status unspecified Qualified Code(s): F32.9 - Major depressive disorder, single episode, unspecified
[2021-11-01] MEDS: HEPARIN SODIUM/DEXTROSE 25,000 UNITS/500 ML BAG IV SCH (19:56)
[2021-11-01] MEDS: clonazePAM 0.5 MG TAB PO SCH (19:58)
[2021-11-01] MEDS: LATANOPROST 0.005% OP SOLN 2.5 ML BTL OP SCH (20:00)
[2021-11-01 23:16] LABS: Partial Thromboplastin Ratio 1.5; Partial Thromboplastin Time 42.3 Seconds (21.0-31.0)
[2021-11-02] MEDS: D5W AND 1/2NSS 1,000 ML IV SCH (02:18)
[2021-11-02] MEDS: HYDROmorphone INJ 0.5 MG/0.5 ML SYR IV PRN ×2 (04:00→10:52)
[2021-11-02] MEDS: LEVOTHYROXINE SODIUM 112 MCG TABLET PO SCH (05:48)
[2021-11-02] MEDS: PANTOprazole 40 MG TAB PO SCH (05:48)
[2021-11-02 06:02] LABS: Basophils # (auto) 0.02 K/uL (0-0.2); Basophils % (auto) 0.2 %; Eosinophils # (auto) 0.39 K/uL (0-0.5); Eosinophils % (auto) 3.1 %; Hematocrit (blood only) 32.6 % (37-47); Hemoglobin 10.2 g/dL (12.0-16.0); Immature Granulocytes # (auto) 0.02 K/uL (0.00-0.02); Immature Granulocytes % (auto) 0.2 %; Lymphocytes # (auto) 0.82 K/uL (1.2-3.4); Lymphocytes % (auto) 6.6 %; Mean Corpuscular Hemoglobin 27.9 pg (25-34); Mean Corpuscular Hgb Conc 31.3 g/dL (32-36); Mean Corpuscular Volume 89.3 fL (80-100); Monocytes % (auto) 12.1 %; Neutrophils # (auto) 9.67 K/uL (1.4-6.5); Neutrophils % (auto) 77.8 %; Platelet Count 207 K/uL (130-400); RDW Coefficient of Variation 13.5 % (11.5-14.5); RDW Standard Deviation 44.4 fL (36.4-46.3); Red Blood Count 3.65 M/uL (4.2-5.4); White Blood Count 12.42 K/uL (4.8-10.8)
[2021-11-02 06:26] LABS: BUN Creatinine Ratio 15.1 (10-20); Calcium 8.3 mg/dl (8.5-10.1); Est GFR (African American) 74.5 ml/min; Est GFR (Non-African American) 64.3 ml/min; Potassium 3.4 mmol/L (3.5-5.1)
[2021-11-02 06:40] LABS: Partial Thromboplastin Time 55.1 Seconds (21.0-31.0)
[2021-11-02] MEDS: AZELASTINE HCL 0.1% NASAL 200 SPRAYS/27,400 MCG BTL SCH ×2 (08:16→17:19)
[2021-11-02] MEDS: DONEPEZIL HCL 5 MG TAB PO SCH (08:17)
[2021-11-02] MEDS: ASPIRIN 81 MG ECTAB PO SCH (08:17)
[2021-11-02] MEDS: METOPROLOL TARTRATE 25 MG TAB PO SCH ×2 (08:17→21:39)
[2021-11-02] MEDS: SERTRALINE HCL 100 MG TABLET PO SCH (08:17)
[2021-11-02] MEDS: FOLIC ACID 1 MG TAB PO SCH (08:18)
[2021-11-02] MEDS: CHOLECALCIFEROL 1,000 UNITS 25 MCG TAB PO SCH (08:18)
[2021-11-02] MEDS: UMECLIDINIUM/VILANTEROL 62.5/25MCG 7 PUFFS/INHALER INH SCH (08:18)
[2021-11-02] MEDS: FAMOTIDINE 20 MG TAB PO SCH ×2 (08:18→21:42)
[2021-11-02] MEDS: RASPBERRY SYRUP 5 ML UDP PO SCH (08:19)
[2021-11-02] MEDS: VANCOMYCIN HCL 125 MG/2.5ML SOLN PO SCH (08:21)
--- NOTE | 2021-11-02 09:43 | Cardiology Progress Note ---
Date of Service November 02, 2021 Assessment & Plan (1) Non-ST elevation (NSTEMI) myocardial infarction: (2) Hip fracture, left: (3) COPD (chronic obstructive pulmonary disease): (4) Dementia: Plan: 81-year-old female admitted with NSTEMI and hip fracture. Recommend medical management with intravenous heparin, aspirin, beta-cj, and statin therapy. Continue IV heparin for 48 hours. Positive fluid balance secondary to continuous intravenous hydration and IV heparin infusion. Recommend discontinuation of IV hydration. Will administer 20 mg of IV Lasix now. Patient is considered high risk for orthopedic surgery with significant comorbidities including oxygen dependent COPD, dementia, and chronic cachexia/frailty. Risk discussed with medical power of erisa attorney as previously documented. Admission and Anticipated Discharge Date Admission Date: October 31, 2021 Subjective Patient seen and examined the bedside. Poor historian due to underlying dementia. Oxygen saturation 100% on 4 L (typically wears 3 L continuously). Fluid balance +1.2 L over the past 24 hours. Denies any shortness of breath, orthopnea, or edema. Review of Systems Review of Systems: All systems reviewed & are unremarkable except as noted in Subjective Physical Exam Constitutional: + ill appearing and + cachectic; no acute distress Respiratory: no labored breathing, no retractions and does not use accessory muscles Auscultation: + diminished lung sounds (Bilateral) and + rhonchi (Bilateral); no crackles, no rales and no wheezes Cardiovascular: Rate/Rhythm: regular rate and regular rhythm Heart Sounds: normal S1 and normal S2; no murmur Vessels: no JVD and + radial pulses abnormal Extremities: no edema Gastrointestinal (Abdomen): Inspection/Auscultation: abdomen normal to inspection and normal bowel sounds; abdomen not distended Percussion/Palpation: abdomen soft; abdomen nontender, no guarding and abdomen not rigid Neurologic: CN's II-XI intact bilaterally and moves all extremities; no focal motor deficits Motor/Sensory: no tremor Psychiatric: Orientation: oriented to person Results & Data ([facility]) Vital Signs (Past 12 Hours) Vital Signs Temp Pulse Pulse Pulse Resp BP BP 11/02/21 07:55 36.4 C L 72 18 120/60 11/02/21 07:46 74 11/02/21 03:25 37.2 C 88 20 163/71 H 11/02/21 00:00 80 11/01/21 22:09 37.1 C 83 20 160/76 H Pulse Ox 11/02/21 07:55 100 11/02/21 07:46 11/02/21 03:25 100 11/02/21 00:00 11/01/21 22:09 100 (1) Dementia Alzheimer's disease onset: unspecified onset Dementia behavioral disturbance: without behavioral disturbance Dementia type: Alzheimer's disease Qualified Code(s): G30.9 - Alzheimer's disease, unspecified; F02.80 - Dementia in other diseases classified elsewhere without behavioral disturbance (2) COPD (chronic obstructive pulmonary disease) COPD type: unspecified COPD Qualified Code(s): J44.9 - Chronic obstructive pulmonary disease, unspecified (3) Hip fracture, left Encounter type: initial encounter Fracture type: closed Qualified Code(s): S72.002A - Fracture of unspecified part of neck of left femur, initial encounter for closed fracture
[2021-11-02] MEDS ORDERED: FUROSEMIDE INJ 20 MG/2 ML VIAL IV ONE (10:00)
[2021-11-02] MEDS: ACETAMINOPHEN 325 MG TAB PO SCH ×2 (13:36→21:42)
[2021-11-02] MEDS: CALCIUM CARBONATE 500 MG CHEWABLE TAB PO SCH (17:19)
[2021-11-02] MEDS: MAGNESIUM OXIDE 400 MG TAB PO SCH (17:19)
--- NOTE | 2021-11-02 18:18 | Hospitalist Progress Note ---
Date of Service November 02, 2021 Assessment & Plan (1) Non-ST elevation (NSTEMI) myocardial infarction: Plan: Plan for heparin drip for 48 hours. TTE with moderate apical lateral wall motion abnormalities Metoplol 12.5mg BID (2) Hip fracture, left: Plan: Patient is a high risk patient Baseline dementia Plan for left hip surgery tomorrow per Orthopedic surgery Prior providers have already discussed high risk status with patient's son (3) COPD (chronic obstructive pulmonary disease): Plan: History of chronic respiratory failure secondary to COPD and bronchiectasis on home oxygen No acute exacerbation of her symptoms (4) Bronchiectasis: (5) Hypothyroid: Plan: Continue supplement (6) Dementia: Plan: Dementia which has been progressing as per the outpatient neurological note No acute delirium (7) Depression: Plan: No acute symptoms DVT prophylaxis IV heparin for now CODE STATUS She has a living will which is in chart. She is a Full code until she finishes surgery, then will go back to being DNR/DNI Admission and Anticipated Discharge Date Admission Date: October 31, 2021 Subjective Patient is a poor historian No new complaints No issues overnight Physical Exam Physical Exam: Frail, elderly, thin, no acute distress Respiratory: breathing comfortably, no wheezing/rhonchi/rales Cardiovascular: regular rate and rhythm, no murmurs/rubs Gastrointestinal (Abdomen): soft, non tender, non distended Musculoskeletal: thin, peripheral muscle wasting Neurologic: confused, awake, poor historian Results & Data Results & Data ([facility]) Vital Signs (Past 12 Hours) Vital Signs Temp Pulse Pulse Pulse Resp BP Pulse Ox 11/02/21 16:56 37.2 C 84 20 148/71 H 97 11/02/21 15:50 80 11/02/21 12:11 36.6 C 82 18 124/62 100 11/02/21 07:55 36.4 C L 72 18 120/60 100 11/02/21 07:46 74 Laboratory Results Short CBC 11/02/21 Range/Units 05:25 WBC 12.42 H (4.8-10.8) K/uL Hgb 10.2 L (12.0-16.0) g/dL Hct 32.6 L (37-47) % Plt Count 207 (130-400) K/uL BMP 11/02/21 05:25 Sodium 136 Potassium 3.4 L D Chloride 102 Carbon Dioxide 30 BUN 13 Creatinine 0.86 Glucose 126 H Calcium 8.3 L Medications Administered Current Inpatient Medications Acetaminophen (Acetaminophen 325 Mg Tab) 650 mg PO Q8 [facility] Stop: 12/02/21 13:59 Last Admin: 11/02/21 13:36 Dose: 650 mg Documented by: Albuterol (Albuterol 0.083% Nebu Soln 3 Ml Vial) 2.5 mg INH QID PRN; Protocol PRN Reason: Shortness Of Breath Or Wheezing Stop: 11/30/21 08:05 Aspirin (Aspirin 81 Mg Ectab) 81 mg PO QAM [facility] Stop: 11/30/21 08:59 Last Admin: 11/02/21 08:17 Dose: 81 mg Documented by: Azelastine HCl (Azelastine Hcl 0.1% Nasal 200 Sprays/27,400 Mcg Btl) 2 sprays NA BIDM [facility] Stop: 11/30/21 16:59 Last Admin: 11/02/21 17:19 Dose: 2 sprays Documented by: Calcium Carbonate (Calcium Carbonate 500 Mg Chewable Tab) 500 mg PO QDD [facility] Stop: 11/30/21 16:29 Last Admin: 11/02/21 17:19 Dose: 500 mg Documented by: Clonazepam (Clonazepam 0.5 Mg Tab) 0.5 mg PO HS [facility] Stop: 11/30/21 20:59 Last Admin: 11/01/21 19:58 Dose: 0.5 mg Documented by: Donepezil HCl (Donepezil Hcl 5 Mg Tab) 5 mg PO DAILY [facility] Stop: 11/30/21 08:59 Last Admin: 11/02/21 08:17 Dose: 5 mg Documented by: Famotidine (Famotidine 20 Mg Tab) 20 mg PO BID [facility] Stop: 11/30/21 08:59 Last Admin: 11/02/21 08:18 Dose: 20 mg Documented by: Folic Acid (Folic Acid 1 Mg Tab) 1 mg PO DAILY [facility] Stop: 11/30/21 08:59 Last Admin: 11/02/21 08:18 Dose: 1 mg Documented by: Hydromorphone HCl (Hydromorphone Inj 0.5 Mg/0.5 Ml Syr) 0.5 mg IV Q3H PRN PRN Reason: Pain Stop: 11/14/21 05:31 Last Admin: 11/02/21 10:52 Dose: 0.5 mg Documented by: Heparin Sodium/Dextrose (Heparin Sodium/Dextrose) 25,000 units in 500 mls @ 17 mls/hr IV .Q24H [facility]; Protocol Stop: 11/30/21 18:14 Last Titration: 11/01/21 23:42 Dose: 850 units/hr, 17 mls/hr Documented by: Latanoprost (Latanoprost 0.005% Op Soln 2.5 Ml Btl) 1 drops OP PM [facility] Stop: 11/30/21 20:59 Last Admin: 11/01/21 20:00 Dose: 1 drops Documented by: Levothyroxine Sodium (Levothyroxine Sodium 112 Mcg Tablet) 112 mcg PO DAILYBB [facility] Stop: 11/30/21 08:59 Last Admin: 11/02/21 05:48 Dose: 112 mcg Documented by: Magnesium Oxide (Magnesium Oxide 400 Mg Tab) 400 mg PO QDD [facility] Stop: 11/30/21 16:29 Last Admin: 11/02/21 17:19 Dose: 400 mg Documented by: Metoprolol Tartrate (Metoprolol Tartrate 25 Mg Tab) 12.5 mg PO BID [facility] Stop: 11/30/21 12:14 Last Admin: 11/02/21 08:17 Dose: 12.5 mg Documented by: Ondansetron HCl (Ondansetron Inj 2 Mg/Ml 2 Ml Vial) 4 mg IV Q6H PRN PRN Reason: Nausea Stop: 11/30/21 05:31 Pantoprazole Sodium (Pantoprazole 40 Mg Tab) 40 mg PO DAILYBB [facility] Stop: 12/01/21 06:29 Last Admin: 11/02/21 05:48 Dose: 40 mg Documented by: Polyethylene Glycol (Polyethylene (Miralax) 17 Gm Pack) 17 gm PO DAILY PRN PRN Reason: Constipation Stop: 11/30/21 05:31 Raspberry (Raspberry Syrup 5 Ml Udp) 5 ml PO DAILY [facility] Stop: 11/10/21 08:59 Last Admin: 11/02/21 08:19 Dose: 5 ml Documented by: Sertraline HCl (Sertraline Hcl 100 Mg Tablet) 100 mg PO QAM [facility] Stop: 11/30/21 08:59 Last Admin: 11/02/21 08:17 Dose: 100 mg Documented by: Umeclidinium/Vilanterol (Umeclidinium/Vilanterol 62.5/25mcg 7 Puffs/Inhaler) 1 puffs INH DAILY [facility] Stop: 11/30/21 08:59 Last Admin: 11/02/21 08:18 Dose: 1 puffs Documented by: Vancomycin HCl (Vancomycin Hcl 125 Mg/2.5ml Soln) 125 mg PO DAILY [facility] Stop: 11/30/21 08:59 Last Admin: 11/02/21 08:21 Dose: 125 mg Documented by: Vitamin D (Cholecalciferol 1,000 Units 25 Mcg Tab) 2,000 units PO QAM [facility] Stop: 11/30/21 08:59 Last Admin: 11/02/21 08:18 Dose: 2,000 units Documented by: (1) Hip fracture, left Encounter type: initial encounter Fracture type: closed Qualified Code(s): S72.002A - Fracture of unspecified part of neck of left femur, initial encounter for closed fracture (2) COPD (chronic obstructive pulmonary disease) COPD type: unspecified COPD Qualified Code(s): J44.9 - Chronic obstructive pulmonary disease, unspecified (3) Bronchiectasis Bronchiectasis type: uncomplicated Qualified Code(s): J47.9 - Bronchiectasis, uncomplicated (4) Hypothyroid Hypothyroidism type: unspecified Qualified Code(s): E03.9 - Hypothyroidism, unspecified (5) Dementia Dementia type: Alzheimer's disease Alzheimer's disease onset: unspecified onset Dementia behavioral disturbance: without behavioral disturbance Qualified Code(s): G30.9 - Alzheimer's disease, unspecified; F02.80 - Dementia in other diseases classified elsewhere without behavioral disturbance (6) Depression Depression Type: major depressive disorder Major depression recurrence: unspecified whether recurrent Active/Remission status: remission status unspecified Qualified Code(s): F32.9 - Major depressive disorder, single episode, unspecified
[2021-11-02] MEDS: clonazePAM 0.5 MG TAB PO SCH (21:39)
[2021-11-02] MEDS: LATANOPROST 0.005% OP SOLN 2.5 ML BTL OP SCH (21:43)
[2021-11-02] MEDS ORDERED: STOP HEPARIN ORDER ONE (23:59)
[2021-11-03] MEDS: LEVOTHYROXINE SODIUM 112 MCG TABLET PO SCH (06:20)
[2021-11-03] MEDS: ACETAMINOPHEN 325 MG TAB PO SCH ×3 (06:21→21:18)
[2021-11-03] MEDS: HEPARIN SODIUM/DEXTROSE 25,000 UNITS/500 ML BAG IV SCH (07:10)
[2021-11-03] MEDS: PANTOprazole 40 MG TAB PO SCH (07:39)
[2021-11-03] MEDS: AZELASTINE HCL 0.1% NASAL 200 SPRAYS/27,400 MCG BTL SCH ×2 (07:40→17:22)
[2021-11-03] MEDS: FAMOTIDINE 20 MG TAB PO SCH ×2 (08:00→19:50)
[2021-11-03] MEDS: FOLIC ACID 1 MG TAB PO SCH (08:00)
[2021-11-03] MEDS: CHOLECALCIFEROL 1,000 UNITS 25 MCG TAB PO SCH (08:00)
[2021-11-03] MEDS: UMECLIDINIUM/VILANTEROL 62.5/25MCG 7 PUFFS/INHALER INH SCH (08:00)
[2021-11-03] MEDS: RASPBERRY SYRUP 5 ML UDP PO SCH (08:00)
[2021-11-03] MEDS: DONEPEZIL HCL 5 MG TAB PO SCH (08:00)
[2021-11-03] MEDS: METOPROLOL TARTRATE 25 MG TAB PO SCH ×2 (08:00→19:50)
[2021-11-03] MEDS: SERTRALINE HCL 100 MG TABLET PO SCH (08:00)
[2021-11-03] MEDS: ASPIRIN 81 MG ECTAB PO SCH (08:00)
[2021-11-03 08:06] LABS: Hematocrit (blood only) 33.9 % (37-47); Hemoglobin 10.9 g/dL (12.0-16.0); Mean Corpuscular Hemoglobin 29.1 pg (25-34); Mean Corpuscular Hgb Conc 32.2 g/dL (32-36); Mean Corpuscular Volume 90.6 fL (80-100); Mean Platelet Volume 10.1 fL (7.4-10.4); Platelet Count 213 K/uL (130-400); RDW Coefficient of Variation 13.2 % (11.5-14.5); Red Blood Count 3.74 M/uL (4.2-5.4); White Blood Count 11.98 K/uL (4.8-10.8)
[2021-11-03] MEDS: VANCOMYCIN HCL 125 MG/2.5ML SOLN PO SCH (08:06)
[2021-11-03 08:20] LABS: Partial Thromboplastin Time 27.4 Seconds (21.0-31.0)
[2021-11-03 08:30] LABS: BUN Creatinine Ratio 16.5 (10-20); Calcium 9.1 mg/dl (8.5-10.1); Creatinine Clr Calc Pharmacy 37.2 ml/min; Est GFR (African American) 64.4 ml/min; Est GFR (Non-African American) 55.5 ml/min; Magnesium 1.9 mg/dl (1.7-2.4); Potassium 3.6 mmol/L (3.5-5.1)
--- NOTE | 2021-11-03 10:01 | Cardiology Progress Note ---
Date of Service November 03, 2021 Assessment & Plan (1) Non-ST elevation (NSTEMI) myocardial infarction: (2) Hip fracture, left: (3) COPD (chronic obstructive pulmonary disease): (4) Dementia: Plan: 81-year-old female admitted with NSTEMI and hip fracture. Patient completed 48 hours of intravenous heparin infusion. She is chest pain free without evidence of dysrhythmia on telemetry. Repeat ECG demonstrates normalization of ST segments. LV function is preserved per echocardiogram with apical lateral wall motion abnormality suggesting circumflex territory CAD. Patient is considered high risk for orthopedic surgery with significant comorbidities including oxygen dependent COPD, dementia, and chronic cachexia/frailty. Risk discussed with medical power of staff attorney as previously documented. Admission and Anticipated Discharge Date Admission Date: October 31, 2021 Subjective Patient seen and examined at the bedside. More awake and alert today. Remains confused and oriented to person. Denies chest pain or hip discomfort. Fluid balance mildly negative overnight. Intravenous hydration discontinued. Received 1 dose of IV Lasix yesterday. Respiratory status appears stable. Review of Systems Review of Systems: Unobtainable due to mental health condition Physical Exam Constitutional: + ill appearing and + cachectic; no acute distress Respiratory: no labored breathing, no retractions and does not use accessory muscles Auscultation: + diminished lung sounds (Bilateral) and + rhonchi (Bilateral); no crackles, no rales and no wheezes Cardiovascular: Rate/Rhythm: regular rate and regular rhythm Heart Sounds: normal S1 and normal S2; no murmur Vessels: no JVD and + radial pulses abnormal Extremities: no edema Gastrointestinal (Abdomen): Inspection/Auscultation: abdomen normal to inspection and normal bowel sounds; abdomen not distended Percussion/Palpation: abdomen soft; abdomen nontender, no guarding and abdomen not rigid Neurologic: CN's II-XI intact bilaterally and moves all extremities; no focal motor deficits Motor/Sensory: no tremor Psychiatric: Orientation: oriented to person Results & Data ([facility]) Vital Signs (Past 12 Hours) Vital Signs Temp Pulse Pulse Resp BP BP Pulse Ox 11/03/21 07:41 36.9 C 86 20 153/75 H 100 11/03/21 07:15 82 11/03/21 03:40 88 11/03/21 03:00 36.9 C 93 H 18 148/67 H 92 11/02/21 22:00 36.7 C 95 H 20 172/62 H 98 (1) Dementia Alzheimer's disease onset: unspecified onset Dementia behavioral disturbance: without behavioral disturbance Dementia type: Alzheimer's disease Qualified Code(s): G30.9 - Alzheimer's disease, unspecified; F02.80 - Dementia in other diseases classified elsewhere without behavioral disturbance (2) COPD (chronic obstructive pulmonary disease) COPD type: unspecified COPD Qualified Code(s): J44.9 - Chronic obstructive pulmonary disease, unspecified (3) Hip fracture, left Encounter type: initial encounter Fracture type: closed Qualified Code(s): S72.002A - Fracture of unspecified part of neck of left femur, initial encounter for closed fracture
--- NOTE | 2021-11-03 10:01 | Anesthesiology Consultation ---
Date of Service November 03, 2021 Assessment & Plan (1) Encounter for pre-operative examination: Chart Review Chart Review: Acceptable Risk for Surgery History Surgery Operation Date: 11/03/21 10:55 Proposed Procedures p Left Bipolar Hemiarthroplasty - Philipp Siddiqui M.D. Height/Weight Height: 5 ft 2 in Weight: 50.5 kg Allergies Allergy/AdvReac Type Severity Reaction Status Date / Time dichloralphenazone AdvReac Severe angina and Unverified 10/10/20 07:55 [From Midrin] hypertension isometheptene [From Midrin] AdvReac Severe angina and Unverified 10/10/20 07:55 hypertension verapamil AdvReac Severe angina and Unverified 10/10/20 07:55 hypertension erythromycin base AdvReac Unknown Unknown Unverified 10/10/20 07:55 Medications Home Medications Medication Instructions Recorded Confirmed Last Taken azelastine 137 mcg (0.1 %) nasal 2 spray INTRANASAL BIDM 03/07/20 10/10/20 10/09/20 spray aerosol clonazepam 0.5 mg tablet 0.5 mg PO HS 03/07/20 10/10/20 10/09/20 levothyroxine 112 mcg tablet 112 mcg PO QAM 03/07/20 10/10/20 10/09/20 omeprazole magnesium 20 mg 20 mg PO DAILYBB 03/07/20 10/10/20 10/09/20 tablet,delayed release (Prilosec OTC) aspirin 81 mg tablet,delayed 81 mg PO QAM 10/10/20 10/10/20 10/09/20 release calcium carbonate 200 mg calcium 200 mg PO QDD 10/10/20 10/10/20 10/08/20 (500 mg) chewable tablet (Calcium Antacid) cholecalciferol (vitamin D3) 50 50 mcg PO QAM 10/10/20 10/10/20 10/09/20 mcg (2,000 unit) tablet magnesium oxide 400 mg PO QDD 10/10/20 10/10/20 10/08/20 sertraline 100 mg tablet 100 mg PO QAM 10/10/20 10/10/20 10/09/20 vancomycin 125 mg capsule 125 mg PO DAILY 30 Days #30 cap 12/21/20 Unknown Pepcid 20 mg PO BID 10/31/21 10/31/21 Unknown albuterol sulfate 2.5 mg INHALATION QID PRN 10/31/21 10/31/21 Unknown donepezil 5 mg tablet 5 mg PO DAILY 10/31/21 10/31/21 Unknown folic acid 1 mg tablet 1 mg PO DAILY 10/31/21 10/31/21 Unknown latanoprost 0.005 % eye drops 1 drp OPHTHALMIC (EYE) PM 10/31/21 10/31/21 Unknown (Xalatan) umeclidinium 62.5 mcg-vilanterol 1 inh INHALATION DAILY 10/31/21 10/31/21 Unknown 25 mcg/actuation powdr for inhalation (Anoro Ellipta) Active Medications Generic Name Dose Route Start Last Admin Trade Name Freq PRN Reason Stop Dose Admin Acetaminophen 650 mg 11/02/21 14:00 11/03/21 06:21 Acetaminophen 325 Mg Tab PO 12/02/21 13:59 650 mg Q8 DAWIT Administration Aspirin 81 mg 10/31/21 09:00 11/03/21 08:00 Aspirin 81 Mg Ectab PO 11/30/21 08:59 81 mg QAM DAWIT Administration Azelastine HCl 2 sprays 10/31/21 17:00 11/03/21 07:40 Azelastine Hcl 0.1% Nasal 200 Sprays/27,400 Mcg Btl NA 11/30/21 16:59 2 sprays BIDM DAWIT Administration Calcium Carbonate 500 mg 10/31/21 16:30 11/02/21 17:19 Calcium Carbonate 500 Mg Chewable Tab PO 11/30/21 16:29 500 mg QDD DAWIT Administration Clonazepam 0.5 mg 10/31/21 21:00 11/02/21 21:39 Clonazepam 0.5 Mg Tab PO 11/30/21 20:59 0.5 mg HS DAWIT Administration Donepezil HCl 5 mg 10/31/21 09:00 11/03/21 08:00 Donepezil Hcl 5 Mg Tab PO 11/30/21 08:59 5 mg DAILY DAWIT Administration Famotidine 20 mg 10/31/21 09:00 11/03/21 08:00 Famotidine 20 Mg Tab PO 11/30/21 08:59 20 mg BID DAWIT Administration Folic Acid 1 mg 10/31/21 09:00 11/03/21 08:00 Folic Acid 1 Mg Tab PO 11/30/21 08:59 1 mg DAILY DAWIT Administration Hydromorphone HCl 0.5 mg 10/31/21 05:32 11/02/21 10:52 Hydromorphone Inj 0.5 Mg/0.5 Ml Syr IV 11/14/21 05:31 0.5 mg Q3H PRN Administration Pain Latanoprost 1 drops 10/31/21 21:00 11/02/21 21:43 Latanoprost 0.005% Op Soln 2.5 Ml Btl OP 11/30/21 20:59 1 drops PM DAWIT Administration Levothyroxine Sodium 112 mcg 10/31/21 09:00 11/03/21 06:20 Levothyroxine Sodium 112 Mcg Tablet PO 11/30/21 08:59 112 mcg DAILYBB DAWIT Administration Magnesium Oxide 400 mg 10/31/21 16:30 11/02/21 17:19 Magnesium Oxide 400 Mg Tab PO 11/30/21 16:29 400 mg QDD DAWIT Administration Metoprolol Tartrate 12.5 mg 10/31/21 12:15 11/03/21 08:00 Metoprolol Tartrate 25 Mg Tab PO 11/30/21 12:14 12.5 mg BID DAWIT Administration Pantoprazole Sodium 40 mg 11/01/21 06:30 11/03/21 07:39 Pantoprazole 40 Mg Tab PO 12/01/21 06:29 40 mg DAILYBB DAWIT Administration Raspberry 5 ml 10/31/21 09:00 11/03/21 08:00 Raspberry Syrup 5 Ml Udp PO 11/10/21 08:59 5 ml DAILY DAWIT Administration Sertraline HCl 100 mg 10/31/21 09:00 11/03/21 08:00 Sertraline Hcl 100 Mg Tablet PO 11/30/21 08:59 100 mg QAM DAWIT Administration Umeclidinium/Vilanterol 1 puffs 10/31/21 09:00 11/03/21 08:00 Umeclidinium/Vilanterol 62.5/25mcg 7 Puffs/Inhaler INH 11/30/21 08:59 1 puffs DAILY DAWIT Administration Vancomycin HCl 125 mg 10/31/21 09:00 11/03/21 08:06 Vancomycin Hcl 125 Mg/2.5ml Soln PO 11/30/21 08:59 125 mg DAILY DAWIT Administration Vitamin D 2,000 units 10/31/21 09:00 11/03/21 08:00 Cholecalciferol 1,000 Units 25 Mcg Tab PO 11/30/21 08:59 2,000 units QAM DAWIT Administration Past Medical History Medical History Bronchiectasis Confusion COPD (chronic obstructive pulmonary disease) Dementia Depression Diarrhea Double vision Encephalopathy Fall Fall Head trauma Hypothyroid Leukocytosis Migraine Nausea & vomiting Pulmonary nodule Sepsis SOB (shortness of breath) Transient cerebral ischemia Past Family History Family History Other Family history non-contributory Past Surgical History Surgical History History of tonsillectomy History of tubal ligation Social History Smoking Status: Former smoker Do You Dip or Chew Tobacco: No Hx Alcohol Use: No Hx Substance Use: No substance use type: does not use Physical Exam Vital Signs Last Vital Signs Temp 36.9 C 11/03/21 07:41 Pulse 86 11/03/21 07:41 Resp 20 11/03/21 07:41 BP 153/75 H 11/03/21 07:41 Pulse Ox 100 11/03/21 07:41 Testing Laboratory Results 11/03/21 07:45 11/03/21 07:45 PT 10.9 Seconds (9.0-12.0) 10/31/21 19:39 INR 1.0 (0.9-1.1) 10/31/21 19:39 APTT 27.4 Seconds (21.0-31.0) 11/03/21 07:45 Urine Color Yellow 10/31/21 Unknown Urine Appearance Clear (Clear) 10/31/21 Unknown Urine pH 6.0 (4.5-7.5) 10/31/21 Unknown Ur Specific [place] 1.018 (1.000-1.030) 10/31/21 Unknown Urine Protein 1+ (Negative) H 10/31/21 Unknown Urine Glucose (UA) Negative (Negative) 10/31/21 Unknown Urine Ketones Trace (Negative) H 10/31/21 Unknown Urine Nitrite Negative (Negative) 10/31/21 Unknown Ur Leukocyte Esterase Negative (Negative) 10/31/21 Unknown Urine WBC (Auto) 1-5 /hpf (0-5) 10/31/21 Unknown Urine RBC (Auto) 0-4 /hpf (0-4) 10/31/21 Unknown U Hyaline Cast (Auto) 0 /lpf (0-5) 10/31/21 Unknown U Epithel Cells (Auto) 5-10 /lpf (0-5) H 10/31/21 Unknown Urine Bacteria (Auto) Negative (Negative) 10/31/21 Unknown Blood Type B Positive 11/02/21 15:18 Antibody Screen NEGATIVE 11/02/21 15:18 Electrocardiogram Date: 11/02/21 Findings: + NSR @ (75) septal infarct Chest X-Ray Date: 10/31/21 Findings: + NAD Echocardiogram Date: 11/01/21 EF: 55-60% Valvular Disease: + no significant valvular disease moderate hypokinesis apical / lateral
[2021-11-03] MEDS ORDERED: fentaNYL citrate 100 MCG/2 ML VIAL ONE (11:02)
[2021-11-03] MEDS ORDERED: MIDAZOLAM HCL 1 MG/ML 2ML VIAL ONE (11:02)
--- NOTE | 2021-11-03 11:38 | History & Physical Bridge Note ---
Date of Service November 03, 2021 History & Physical Bridge Note I have examined the patient, reviewed the History & Physical and in the interval since the performance of the History & Physical I have noted the following changes of clinical significance: no changes noted Patient has a displaced left hip femoral neck fracture. This will require a hemiarthroplasty to restore stability, reduce pain, and restore the ability to ambulate. I reviewed with the patient's son and power of manager development, Mak Chi, that she is a high risk surgical candidate due to her other medical issues, in particular her recent myocardial infarction and COPD on 3 L of oxygen. He understands and wishes to proceed with surgery. Risks, benefits, and alternatives of surgery were explained in detail. The surgical procedure, as well as postoperative recovery and rehabilitation, was also explained in detail. Risks include bleeding; infection; damage to surrounding structures such as nerves, blood vessels, and tendons that run in the area; persistent pain or stiffness; hardware failure; dislocation; leg length discrepancy; blood clots; or need for further surgery. The patient's son understands all of this and wishes to proceed with surgery. Informed consent was obtained.
[2021-11-03] MEDS ORDERED: BUPIVACAINE 0.5 % 5 MG/1 ML PF 10ML VIAL ONE (11:46)
[2021-11-03] MEDS ORDERED: LIDOCAINE 1% LOCAL 20 ML VIAL ONE (11:47)
[2021-11-03] MEDS ORDERED: BUPIVACAINE 0.5 % 5 MG/1 ML MPF 30ML VIAL ONE (11:47)
[2021-11-03] MEDS ORDERED: ONDANSETRON INJ 2 MG/ML 2 ML VIAL IV PRN (11:55)
[2021-11-03] MEDS ORDERED: HYDROmorphone INJ 1 MG/ML SYRINGE IV PRN (11:55)
[2021-11-03] MEDS ORDERED: PHENYLEPHRINE 100MCG/ML 5ML SYR IV PRN (11:55)
[2021-11-03] MEDS ORDERED: ATROPINE SULFATE 0.1 MG/ML 10ML SYR IV PRN (11:55)
[2021-11-03] MEDS ORDERED: ePHEDrine sulfate 50 MG/ML AMP IV PRN (11:55)
[2021-11-03] MEDS ORDERED: ceFAZolin 330 MG/ML 1 GM VIAL ONE (12:06)
[2021-11-03] MEDS ORDERED: PROPOFOL IV EMULSION 10 MG/ML 20 ML VIAL IV ONE (12:08)
[2021-11-03] MEDS ORDERED: LIDOCAINE 2% 2 ML VIAL/AMP(20MG/ML) INFIL ONE (12:09)
[2021-11-03] MEDS ORDERED: PHENYLEPHRINE HCL 10 MG/ML VIAL ONE (12:48)
[2021-11-03] MEDS ORDERED: ePHEDrine sulfate 50 MG/ML AMP ONE (12:57)
--- NOTE | 2021-11-03 13:29 | Operative Report ---
Post Operative Report Pre & Post Diagnosis Operation Date: 11/03/21 10:55 Pre-Op Diagnosis: Left hip displaced femoral neck fracture Post-Op Diagnosis: Left hip displaced femoral neck fracture I identified the patient and participated in the time-out.: Yes Procedure Operation Date: 11/03/21 10:55 Actual Procedures Left hip hemiarthroplasty for displaced femoral neck fracture (35635) - Philipp Siddiqui M.D. Surgeon Philipp Siddiqui Sandwich Artist Ramin Peralta PA-C Estimated Blood Loss 75 Findings Consistent with Post-Op Diagnosis Specimens None Drains None Anesthesia Type General Complications none Disposition Disposition: Recovery Room Indications Ms. Chi is a 81-year-old female who injured her left hip during a ground-level fall earlier this week. History, clinical exam, and imaging were consistent with the above diagnosis. Risks, benefits, and alternatives of surgery were explained in detail. The patient understood all this and wished to proceed. Description of Procedure Components implanted: Biomet Echo Bi-Metric press-fit 13mm Standard Femoral Stem 46mm RingLoc Bi-Polar Shell with + 0 mm Neck Patient was identified in the preoperative holding area. Operative extremity was marked. Patient was then brought back to the operating room, and general anesthesia was induced without complication. Appropriate weight-based dose of Ancef was infused intravenously for antibiotic prophylaxis. Patient was then turned in the lateral decubitus position with the left hip up. Hip positioner was applied to hold the pelvis stable. Axillary roll was placed and all bony prominences were well padded. The left leg was then prepped and draped in a standard sterile fashion using Chlorhexidine prep. I made an incision over the lateral aspect of the hip for a posterolateral approach. I then dissected through subcutaneous tissues down to the iliotibial band. The iliotibial band was divided in line with its fibers at the posterior third of the greater trochanter. Greater trochanteric bursectomy was then performed to expose the posterolateral aspect of the hip. I released the piriformis tendon and short external rotators off of their attachment point at the posterolateral aspect of the greater trochanter. These tendons was tagged with #2 FiberWire sutures in a locking [place] fashion for later repair. I then made a T-capsulotomy of the posterior hip joint capsule. The inferior leaf the capsulotomy was tagged with a #1 Vicryl suture for retraction during hip reduction and later repair. The femoral neck fracture was then easily identified. Comminuted fracture fragments were removed as they were encountered. I then marked the femoral neck about 1 cm proximal to the lesser trochanter and made the proximal femoral cut in line with the angle given by the proximal femoral resection guide. Femoral neck fracture fragments were then removed proximal to the neck cut. The femoral head was then removed and sized. Ligamentum teres was resected from the depth of the acetabulum and the acetabulum was copiously irrigated with sterile saline to insure that there were no remaining bone fragments. I then placed an appropriately-sized trial head into the acetabulum. It seated fully, had free range of motion, and had a good suction seal. I then used the box osteotome to remove a rectangle of bone at the posterolateral femur in line with the femoral canal to ensure that I was completely lateralized into the medial wall of the greater trochanter. Canal finder was then used down the center of the femoral canal. I then used a lateralizing reamer to ensure that I was completely lateralized to avoid varus positioning of the implant. I then sequentially reamed with the canal reamers until I got good cortical chatter. I then sequentially broached until I achieved good cortical fit. The final femoral stem was impacted into place. This showed excellent rotational stability. I then trialed with various neck lengths on the femoral stem while taking the hip through full range of motion. I selected a neck length that gave good stability of the hip through full range of motion, including in flexion, adduction, and internal rotation, as well as good range of motion in flexion and extension, and equal leg lengths. I then removed the trial femoral head and impacted the final femoral head onto the Roche taper of the femoral stem. I then again reduced the hip and took it through full range of motion. Again, there was excellent stability of the hip with full range of motion. I was then satisfied with the procedure. The wound was copiously irrigated with sterile saline via pulsatile irrigation. I then closed the posterior capsulotomy with #2 FiberWire suture. I then made three drill holes in the posterior aspect of the greater trochanter and passed the previously placed FiberWire sutures in the piriformis tendon and short external rotators through these drill holes. The tendons were reapproximated and tied with the hip held in external rotation. I then closed the iliotibial band with a #1 Vicryl suture as a tacking stitch followed by a running #0 V-Lock suture. Deep dermal tissue was then closed with 2-0 V-Lock, and subcutaneous tissue was closed with 3-0 V- Lock. Wound bed was then anesthetized with a 50-50 mixture of 1% lidocaine and 0.5% Marcaine without epinephrine. The incision was then sealed with Dermabond. Sterile dressings were then applied with Silverlon. Drapes were then removed and a hip abduction pillow was placed. The patient was then transferred over to the stretcher and taken to the Post-Anesthesia Care Unit in stable condition. There were no immediate complications from the procedure. I was present and scrubbed for the entire procedure. Due to the complex nature of the procedure, the entire surgery was performed with the operational assistance of Ramin Peralta PA-C. The marketing support assistant, under direct supervision, was involved in the performance of all aspects of the surgical procedure including patient positioning, tissue retraction, hemostasis, wound closure, and dressing application. I attest to the content of the Intraoperative Record and any orders documented therein. Any exceptions are noted below.
--- NOTE | 2021-11-03 13:43 | Electrocardiogram Report ---
Test Reason : Blood Pressure : / mmHG Vent. Rate : 075 BPM Atrial Rate : 075 BPM P-R Int : 238 ms QRS Dur : 082 ms QT Int : 426 ms P-R-T Axes : 071 -14 081 degrees QTc Int : 475 ms Sinus rhythm with 1st degree A-V block Possible Old Septal infarct (cited on or before 10-OCT-2020) Abnormal ECG When compared with ECG of 01-NOV-2021 09:05, No significant change was found Confirmed by Kam Santillan ([id number]) on 11/03/2021 1:43:21 PM Referred By: REFERRED SELF Confirmed By:Kam Santillan
--- NOTE | 2021-11-03 14:30 | XRay Report ---
XR hip 1V LT w pelvis HISTORY: 81 years-old Female IN PACU - A/P PELVIS and LATERAL HIP left hip total joint arthroplasty COMPARISON: Left hip radiographs 10/31/2021, pelvis radiograph 12/18/2020 TECHNIQUE: 2 views of the left hip FINDINGS: Left hip total joint arthroplasty demonstrates satisfactory alignment without definite acute fracture or unexpected opaque foreign body. Mild cortical buckling/irregularity is noted involving the right superior pubic ramus and right ischium which appears to be new from prior. Expected postoperative sof t tissue swelling with deep tissue air. Demineralized appearance of the bones. Arterial calcification s. IMPRESSION: 1. Left hip total joint arthroplasty with expected postoperative changes. 2. Mild cortical buckling of the right superior pubic ramus and right ischium. Attention at follow-up is recommended to exclude subtle acute fractures. ACT 112: Negative or not required by law. The above report was generated using voice recognition software. It may contain grammatical, syntax o r spelling errors. Electronically signed by: Leonel Angeles M.D. 11/03/2021 2:29 PM
--- NOTE | 2021-11-03 14:36 | Anesthesiology Progress Note ---
Date of Service November 03, 2021 Anesthesia Post Procedure Vital Signs Vital Signs: Temp Pulse Pulse Pulse Resp BP BP 11/03/21 14:20 76 18 149/92 H 11/03/21 14:10 81 25 H 134/83 11/03/21 14:00 81 29 H 126/89 11/03/21 13:50 75 20 143/70 H 11/03/21 13:40 78 22 137/75 11/03/21 13:32 36.4 C L 78 14 122/65 11/03/21 10:18 37.0 C 18 L 80 18 155/84 H 11/03/21 07:41 36.9 C 86 20 153/75 H 11/03/21 07:15 82 11/03/21 03:40 88 11/03/21 03:00 36.9 C 93 H 18 148/67 H 11/02/21 22:00 36.7 C 95 H 20 172/62 H 11/02/21 19:00 37.5 C 86 20 149/71 H 11/02/21 16:56 37.2 C 84 20 148/71 H 11/02/21 15:50 80 Pulse Ox 11/03/21 14:20 98 11/03/21 14:10 97 11/03/21 14:00 94 11/03/21 13:50 100 11/03/21 13:40 100 11/03/21 13:32 100 11/03/21 10:18 100 11/03/21 07:41 100 11/03/21 07:15 11/03/21 03:40 11/03/21 03:00 92 11/02/21 22:00 98 11/02/21 19:00 99 11/02/21 16:56 97 11/02/21 15:50 Pain Intensity Left Hip: Pain Intensity: 0 Transfer of Care Handoff Completed per policy Notes Mental Status: alert / awake / arousable Patient Amnestic to Procedure: Yes Nausea / Vomiting: adequately controlled Pain: adequately controlled Airway Patency, RR, SpO2: stable & adequate BP & HR: stable & adequate Hydration State: stable & adequate Neuraxial Anesthesia: was administered and sensory block is resolving Anesthetic Complications: no major complications apparent
[2021-11-03] MEDS ORDERED: MAGNESIUM HYDROXIDE SUSP 30 ML UDC PO PRN (14:54)
[2021-11-03] MEDS ORDERED: NALOXONE HCL 0.4 MG/1 ML VIAL/CARP IV PRN (14:54)
[2021-11-03] MEDS ORDERED: bisacodyL 10 MG SUPP PR PRN (14:54)
[2021-11-03] MEDS: SODIUM CHLORIDE 0.9% 1000ML 1,000 ML IV SCH (15:41)
[2021-11-03] MEDS: CALCIUM CARBONATE 500 MG CHEWABLE TAB PO SCH (15:43)
[2021-11-03] MEDS: MAGNESIUM OXIDE 400 MG TAB PO SCH (15:43)
--- NOTE | 2021-11-03 19:30 | Hospitalist Progress Note ---
Date of Service November 03, 2021 Assessment & Plan (1) Non-ST elevation (NSTEMI) myocardial infarction: Plan: Finished heparin drip for 48 hours. TTE with moderate apical lateral wall motion abnormalities Metoplol 12.5mg BID (2) Hip fracture, left: Plan: s/p left hemiarthroplasty today (3) COPD (chronic obstructive pulmonary disease): Plan: History of chronic respiratory failure secondary to COPD and bronchiectasis on home oxygen No acute exacerbation of her symptoms (4) Bronchiectasis: (5) Hypothyroid: Plan: Continue supplement (6) Dementia: Plan: Dementia which has been progressing as per the outpatient neurological note No acute delirium (7) Depression: Plan: No acute symptoms DVT prophylaxis start SQ lovenox when cleared by Ortho CODE STATUS She was temporarily Full code for surgery, code status now changed to DNR/DNI Admission and Anticipated Discharge Date Admission Date: October 31, 2021 Subjective Patient went to OR today, successful surgery She was seen in her room after surgery. She remains pleasantly demented, more awake Did not eat much dinner and declines help Physical Exam Physical Exam: Pleasantly confused, no acute distress, non toxic Respiratory: Breathing comfortably on room air, no wheezing/rhonchi/rales Cardiovascular: Regular rate and rhythm, no murmurs/rubs/gallops Gastrointestinal (Abdomen): soft, non tender, non distended Musculoskeletal: no edema, left hip no significant swellng Neurologic: awake, pleasantly demented Results & Data Results & Data ([facility]) Vital Signs (Past 12 Hours) Vital Signs Temp Pulse Pulse Pulse Resp BP BP 11/03/21 18:41 36.8 C 93 H 18 164/78 H 11/03/21 17:24 36.6 C 96 H 20 156/78 H 11/03/21 16:30 102 H 11/03/21 16:24 36.6 C 98 H 18 142/80 H 11/03/21 15:24 36.8 C 78 18 138/68 11/03/21 14:56 36.8 C 89 18 140/73 11/03/21 14:30 36.8 C 79 22 138/82 11/03/21 14:20 76 18 149/92 H 11/03/21 14:10 81 25 H 134/83 11/03/21 14:00 81 29 H 126/89 11/03/21 13:50 75 20 143/70 H 11/03/21 13:40 78 22 137/75 11/03/21 13:32 36.4 C L 78 14 122/65 11/03/21 10:18 37.0 C 18 L 80 18 155/84 H 11/03/21 07:41 36.9 C 86 20 153/75 H Pulse Ox 11/03/21 18:41 99 11/03/21 17:24 95 11/03/21 16:30 11/03/21 16:24 95 11/03/21 15:24 96 11/03/21 14:56 96 11/03/21 14:30 100 11/03/21 14:20 98 11/03/21 14:10 97 11/03/21 14:00 94 11/03/21 13:50 100 11/03/21 13:40 100 11/03/21 13:32 100 11/03/21 10:18 100 11/03/21 07:41 100 Laboratory Results Short CBC 11/03/21 Range/Units 07:45 WBC 11.98 H (4.8-10.8) K/uL Hgb 10.9 L (12.0-16.0) g/dL Hct 33.9 L (37-47) % Plt Count 213 (130-400) K/uL BMP 11/03/21 07:45 Sodium 137 Potassium 3.6 Chloride 98 Carbon Dioxide 34 H BUN 16 Creatinine 0.97 Glucose 98 Calcium 9.1 Medications Administered Current Inpatient Medications Acetaminophen (Acetaminophen 325 Mg Tab) 650 mg PO Q8 [facility] Stop: 12/02/21 13:59 Last Admin: 11/03/21 15:41 Dose: 650 mg Documented by: Albuterol (Albuterol 0.083% Nebu Soln 3 Ml Vial) 2.5 mg INH QID PRN; Protocol PRN Reason: Shortness Of Breath Or Wheezing Stop: 11/30/21 08:05 Aspirin (Aspirin 81 Mg Ectab) 81 mg PO QAM [facility] Stop: 11/30/21 08:59 Last Admin: 11/03/21 08:00 Dose: 81 mg Documented by: Azelastine HCl (Azelastine Hcl 0.1% Nasal 200 Sprays/27,400 Mcg Btl) 2 sprays NA BIDM [facility] Stop: 11/30/21 16:59 Last Admin: 11/03/21 17:22 Dose: Not Given Documented by: Bisacodyl (Bisacodyl 10 Mg Supp) 10 mg OH DAILY PRN PRN Reason: Constipation Stop: 12/03/21 14:53 Calcium Carbonate (Calcium Carbonate 500 Mg Chewable Tab) 500 mg PO QDD [facility] Stop: 11/30/21 16:29 Last Admin: 11/03/21 15:43 Dose: 500 mg Documented by: Clonazepam (Clonazepam 0.5 Mg Tab) 0.5 mg PO HS [facility] Stop: 11/30/21 20:59 Last Admin: 11/02/21 21:39 Dose: 0.5 mg Documented by: Docusate Sodium (Docusate Sodium 100 Mg Cap) 100 mg PO BID [facility] Stop: 12/03/21 20:59 Donepezil HCl (Donepezil Hcl 5 Mg Tab) 5 mg PO DAILY [facility] Stop: 11/30/21 08:59 Last Admin: 11/03/21 08:00 Dose: 5 mg Documented by: Famotidine (Famotidine 20 Mg Tab) 20 mg PO BID [facility] Stop: 11/30/21 08:59 Last Admin: 11/03/21 08:00 Dose: 20 mg Documented by: Folic Acid (Folic Acid 1 Mg Tab) 1 mg PO DAILY [facility] Stop: 11/30/21 08:59 Last Admin: 11/03/21 08:00 Dose: 1 mg Documented by: Hydromorphone HCl (Hydromorphone Inj 0.5 Mg/0.5 Ml Syr) 0.5 mg IV Q3H PRN PRN Reason: Pain Stop: 11/14/21 05:31 Last Admin: 11/02/21 10:52 Dose: 0.5 mg Documented by: Sodium Chloride (Nss 1000ml) 1,000 mls @ 75 mls/hr IV .[id number] [facility] Stop: 11/04/21 06:00 Last Admin: 11/03/21 15:41 Dose: 75 mls/hr Documented by: Cefazolin Sodium (Ancef 1000mg) 1,000 mg in 7.5 mls @ 2.5 mls/min IV Q8H [facility]; Protocol Stop: 11/04/21 03:47 Latanoprost (Latanoprost 0.005% Op Soln 2.5 Ml Btl) 1 drops OP PM [facility] Stop: 11/30/21 20:59 Last Admin: 11/02/21 21:43 Dose: 1 drops Documented by: Levothyroxine Sodium (Levothyroxine Sodium 112 Mcg Tablet) 112 mcg PO DAILYBB [facility] Stop: 11/30/21 08:59 Last Admin: 11/03/21 06:20 Dose: 112 mcg Documented by: Magnesium Hydroxide (Magnesium Hydroxide Susp 30 Ml Udc) 30 ml PO Q6H PRN PRN Reason: Constipation Stop: 12/03/21 14:53 Magnesium Oxide (Magnesium Oxide 400 Mg Tab) 400 mg PO QDD [facility] Stop: 11/30/21 16:29 Last Admin: 11/03/21 15:43 Dose: 400 mg Documented by: Metoprolol Tartrate (Metoprolol Tartrate 25 Mg Tab) 12.5 mg PO BID [facility] Stop: 11/30/21 12:14 Last Admin: 11/03/21 08:00 Dose: 12.5 mg Documented by: Multivitamins (Multivitamin Tab) 1 tab PO QAM [facility] Stop: 12/04/21 08:59 Naloxone HCl (Naloxone Hcl 0.4 Mg/1 Ml Vial/Carp) 0.1 mg IV Q5M PRN PRN Reason: Oversedation/Resp Depression Stop: 12/03/21 14:53 Ondansetron HCl (Ondansetron Inj 2 Mg/Ml 2 Ml Vial) 4 mg IV Q6H PRN PRN Reason: Nausea Stop: 11/30/21 05:31 Pantoprazole Sodium (Pantoprazole 40 Mg Tab) 40 mg PO DAILYBB [facility] Stop: 12/01/21 06:29 Last Admin: 11/03/21 07:39 Dose: 40 mg Documented by: Polyethylene Glycol (Polyethylene (Miralax) 17 Gm Pack) 17 gm PO DAILY PRN PRN Reason: Constipation Stop: 11/30/21 05:31 Raspberry (Raspberry Syrup 5 Ml Udp) 5 ml PO DAILY [facility] Stop: 11/10/21 08:59 Last Admin: 11/03/21 08:00 Dose: 5 ml Documented by: Sertraline HCl (Sertraline Hcl 100 Mg Tablet) 100 mg PO QAM [facility] Stop: 11/30/21 08:59 Last Admin: 11/03/21 08:00 Dose: 100 mg Documented by: Tramadol HCl (Tramadol Hcl 50 Mg Tablet) 50 mg PO Q4H PRN PRN Reason: Pain & Pre PT Stop: 12/03/21 14:53 Umeclidinium/Vilanterol (Umeclidinium/Vilanterol 62.5/25mcg 7 Puffs/Inhaler) 1 puffs INH DAILY DAWIT Stop: 11/30/21 08:59 Last Admin: 11/03/21 08:00 Dose: 1 puffs Documented by: Vancomycin HCl (Vancomycin Hcl 125 Mg/2.5ml Soln) 125 mg PO DAILY DAWIT Stop: 11/30/21 08:59 Last Admin: 11/03/21 08:06 Dose: 125 mg Documented by: Vitamin D (Cholecalciferol 1,000 Units 25 Mcg Tab) 2,000 units PO QAM DAWIT Stop: 11/30/21 08:59 Last Admin: 11/03/21 08:00 Dose: 2,000 units Documented by: (1) Hip fracture, left Encounter type: initial encounter Fracture type: closed Qualified Code(s): S72.002A - Fracture of unspecified part of neck of left femur, initial encounter for closed fracture (2) COPD (chronic obstructive pulmonary disease) COPD type: unspecified COPD Qualified Code(s): J44.9 - Chronic obstructive pulmonary disease, unspecified (3) Bronchiectasis Bronchiectasis type: uncomplicated Qualified Code(s): J47.9 - Bronchiectasis, uncomplicated (4) Hypothyroid Hypothyroidism type: unspecified Qualified Code(s): E03.9 - Hypothyroidism, unspecified (5) Dementia Dementia type: Alzheimer's disease Alzheimer's disease onset: unspecified onset Dementia behavioral disturbance: without behavioral disturbance Qualified Code(s): G30.9 - Alzheimer's disease, unspecified; F02.80 - Dementia in other diseases classified elsewhere without behavioral disturbance (6) Depression Depression Type: major depressive disorder Major depression recurrence: unspecified whether recurrent Active/Remission status: remission status unspecified Qualified Code(s): F32.9 - Major depressive disorder, single episode, unspecified
[2021-11-03] MEDS: ceFAZolin 1000MG 1,000 MG/7.5 ML SYR IV SCH (19:47)
[2021-11-03] MEDS: DOCUSATE SODIUM 100 MG CAP PO SCH (19:48)
[2021-11-03] MEDS: clonazePAM 0.5 MG TAB PO SCH (19:48)
[2021-11-03] MEDS: LATANOPROST 0.005% OP SOLN 2.5 ML BTL OP SCH (19:50)
[2021-11-04] MEDS: SODIUM CHLORIDE 0.9% 1000ML 1,000 ML IV SCH (03:02)
[2021-11-04] MEDS: ceFAZolin 1000MG 1,000 MG/7.5 ML SYR IV SCH (03:02)
[2021-11-04] MEDS: PANTOprazole 40 MG TAB PO SCH (05:18)
[2021-11-04] MEDS: ACETAMINOPHEN 325 MG TAB PO SCH ×3 (05:18→22:33)
[2021-11-04] MEDS: LEVOTHYROXINE SODIUM 112 MCG TABLET PO SCH (05:18)
[2021-11-04] MEDS: METOPROLOL TARTRATE 25 MG TAB PO SCH ×2 (07:50→22:33)
[2021-11-04] MEDS: FAMOTIDINE 20 MG TAB PO SCH ×2 (07:51→22:32)
[2021-11-04] MEDS: MULTIVITAMIN TAB PO SCH (07:51)
[2021-11-04] MEDS: DONEPEZIL HCL 5 MG TAB PO SCH (07:51)
[2021-11-04] MEDS: CHOLECALCIFEROL 1,000 UNITS 25 MCG TAB PO SCH (07:51)
[2021-11-04] MEDS: SERTRALINE HCL 100 MG TABLET PO SCH (07:51)
[2021-11-04] MEDS: ASPIRIN 81 MG ECTAB PO SCH (07:51)
[2021-11-04] MEDS: AZELASTINE HCL 0.1% NASAL 200 SPRAYS/27,400 MCG BTL SCH ×2 (07:52→15:34)
[2021-11-04] MEDS: FOLIC ACID 1 MG TAB PO SCH (07:52)
[2021-11-04] MEDS: DOCUSATE SODIUM 100 MG CAP PO SCH ×2 (07:52→22:32)
[2021-11-04] MEDS: RASPBERRY SYRUP 5 ML UDP PO SCH (07:52)
[2021-11-04] MEDS: UMECLIDINIUM/VILANTEROL 62.5/25MCG 7 PUFFS/INHALER INH SCH (07:52)
--- NOTE | 2021-11-04 08:52 | XRay Report ---
XR chest 1V portable HISTORY: 81 years-old Female fever acute fever COMPARISON: Chest radiograph 10/31/2021, chest CT 12/15/2020 TECHNIQUE: Portable AP view of the chest FINDINGS: The cardiac mediastinal and hilar silhouettes are within normal limits. No pneumothorax, large pleura l effusion or overt pulmonary edema. Chronic upper lung zone predominant reticular nodular opacities with hyperinflation and right middle lobe bronchiectasis. Degenerative changes of the shoulders and s [place]. IMPRESSION: 1. No acute process. 2. Similar appearance of the long-standing reticular nodular upper lung zone predominant opacities co mpatible with a chronic infectious or inflammatory pneumonitis such as atypical mycobacterium infecti on. Mild associated bronchiectasis is better seen on the comparison chest CT. ACT 112: Negative or not required by law. The above report was generated using voice recognition software. It may contain grammatical, syntax o r spelling errors. Electronically signed by: Leonel Angeles M.D. 11/04/2021 8:51 AM
[2021-11-04 08:55] LABS: Basophils # (auto) 0.02 K/uL (0-0.2); Basophils % (auto) 0.1 %; Eosinophils # (auto) 0.02 K/uL (0-0.5); Eosinophils % (auto) 0.1 %; Hematocrit (blood only) 30.4 % (37-47); Hemoglobin 9.7 g/dL (12.0-16.0); Immature Granulocytes # (auto) 0.05 K/uL (0.00-0.02); Immature Granulocytes % (auto) 0.3 %; Lymphocytes # (auto) 0.65 K/uL (1.2-3.4); Lymphocytes % (auto) 4.1 %; Mean Corpuscular Hemoglobin 28.5 pg (25-34); Mean Corpuscular Hgb Conc 31.9 g/dL (32-36); Mean Corpuscular Volume 89.4 fL (80-100); Mean Platelet Volume 10.4 fL (7.4-10.4); Monocytes # (auto) 1.85 K/uL (0.11-0.59); Monocytes % (auto) 11.7 %; Neutrophils # (auto) 13.28 K/uL (1.4-6.5); Neutrophils % (auto) 83.7 %; Platelet Count 224 K/uL (130-400); RDW Standard Deviation 42.4 fL (36.4-46.3); White Blood Count 15.87 K/uL (4.8-10.8)
[2021-11-04 09:22] LABS: BUN Creatinine Ratio 18.8 (10-20); Calcium 8.7 mg/dl (8.5-10.1); Creatinine Clr Calc Pharmacy 42.4 ml/min; Est GFR (African American) 75.5 ml/min; Est GFR (Non-African American) 65.2 ml/min; Magnesium 1.7 mg/dl (1.7-2.4); Potassium 3.6 mmol/L (3.5-5.1)
[2021-11-04] MEDS ORDERED: METOPROLOL TARTRATE 25 MG TAB PO STA (09:41)
--- NOTE | 2021-11-04 09:45 | Cardiology Progress Note ---
Date of Service November 04, 2021 Assessment & Plan (1) Non-ST elevation (NSTEMI) myocardial infarction: (2) Hip fracture, left: (3) COPD (chronic obstructive pulmonary disease): (4) Dementia: Plan: 81-year-old female admitted with NSTEMI and hip fracture. Patient completed 48 hours of intravenous heparin infusion. Hip repair performed 11/03/2021 without complication. Hemoglobin has trended downward to 9.7 postoperatively. Currently chest pain-free. ECG without significant ST segment changes. Titrate metoprolol to tartrate to 25 mg twice daily. Consider addition of Plavix for medical management of NSTEMI pending review of CBC in a.m. 11/05/2021. We will add statin therapy prior to discharge pending clinical course. Further evaluation of postoperative fever per internal medicine and orthopedic surgery. Admission and Anticipated Discharge Date Admission Date: October 31, 2021 Subjective Patient seen and examined at the bedside. Initially endorsed mild chest cramping, however, upon further questioning she denies any hip or chest discomfort. She is a poor historian due to underlying dementia. Febrile this morning and borderline tachycardic. ECG without significant ST changes however anterior Q waves now present. Review of Systems Review of Systems: Unobtainable due to mental health condition Physical Exam Constitutional: + ill appearing and + cachectic; no acute distress Respiratory: no labored breathing, no retractions and does not use accessory muscles Auscultation: + diminished lung sounds (Bilateral) and + rhonchi (Bilateral); no crackles, no rales and no wheezes Cardiovascular: Rate/Rhythm: regular rate and regular rhythm Heart Sounds: normal S1 and normal S2; no murmur Vessels: no JVD and + radial pulses abnormal Extremities: no edema Gastrointestinal (Abdomen): Inspection/Auscultation: abdomen normal to inspection and normal bowel sounds; abdomen not distended Percussion/Palpation: abdomen soft; abdomen nontender, no guarding and abdomen not rigid Neurologic: CN's II-XI intact bilaterally and moves all extremities; no focal motor deficits Motor/Sensory: no tremor Psychiatric: Orientation: oriented to person Results & Data ([facility]) Vital Signs (Past 12 Hours) Vital Signs Temp Pulse Pulse Resp BP BP Pulse Ox 11/04/21 07:00 38.1 C H 95 H 20 150/70 H 100 11/04/21 03:00 37.4 C 78 20 180/79 H 99 11/03/21 23:42 87 11/03/21 22:00 37.4 C 104 H 20 143/67 H 92 (1) Dementia Alzheimer's disease onset: unspecified onset Dementia behavioral disturbance: without behavioral disturbance Dementia type: Alzheimer's disease Qualified Code(s): G30.9 - Alzheimer's disease, unspecified; F02.80 - Dementia in other diseases classified elsewhere without behavioral disturbance (2) COPD (chronic obstructive pulmonary disease) COPD type: unspecified COPD Qualified Code(s): J44.9 - Chronic obstructive pulmonary disease, unspecified (3) Hip fracture, left Encounter type: initial encounter Fracture type: closed Qualified Code(s): S72.002A - Fracture of unspecified part of neck of left femur, initial encounter for closed fracture
--- NOTE | 2021-11-04 10:07 | Orthopedic Progress Note ---
Date of Service November 04, 2021 Assessment & Plan (1) Hip fracture, left: Plan: POD 1 PT/OT protocols as able. WBAT. DVT prophylaxis - ASA, SCD's, DEIDRA's Pain management as written. Leukocytosis - up to 15 from 11. Possible surgical stress. Follow. Follow temps for now. Surgical are appears benign. DC planning - planning for dc to SNF. Admission and Anticipated Discharge Date Admission Date: October 31, 2021 Subjective POD 1 Increased temp this AM. Pt somnolent this AM. Responds a little bit to verbal / physical stimuli. Not following commands. Physical Exam Physical Exam: Silverlon dressing C/D/I. Calves are soft, and appear NT. Pt moving toes with stimuli. Abduction pillow present. Results & Data ([facility]) Vital Signs (Past 12 Hours) Vital Signs Temp Pulse Pulse Resp BP Pulse Ox 11/04/21 07:00 38.1 C H 95 H 20 150/70 H 100 11/04/21 03:00 37.4 C 78 20 180/79 H 99 11/03/21 23:42 87 Laboratory Results Laboratory Results WBC 15.87 K/uL (4.8-10.8) H 11/04/21 08:10 RBC 3.40 M/uL (4.2-5.4) L 11/04/21 08:10 Hgb 9.7 g/dL (12.0-16.0) L 11/04/21 08:10 Hct 30.4 % (37-47) L 11/04/21 08:10 MCV 89.4 fL (80-100) 11/04/21 08:10 MCH 28.5 pg (25-34) 11/04/21 08:10 MCHC 31.9 g/dL (32-36) L 11/04/21 08:10 RDW Std Deviation 42.4 fL (36.4-46.3) 11/04/21 08:10 RDW Coeff of [place]ver 13.0 % (11.5-14.5) 11/04/21 08:10 Plt Count 224 K/uL (130-400) 11/04/21 08:10 MPV 10.4 fL (7.4-10.4) 11/04/21 08:10 Immature Gran % (Auto) 0.3 % 11/04/21 08:10 Neut % (Auto) 83.7 % 11/04/21 08:10 Lymph % (Auto) 4.1 % 11/04/21 08:10 [place] % (Auto) 11.7 % 11/04/21 08:10 Eos % (Auto) 0.1 % 11/04/21 08:10 Baso % (Auto) 0.1 % 11/04/21 08:10 Neut # (Auto) 13.28 K/uL (1.4-6.5) H 11/04/21 08:10 Lymph # (Auto) 0.65 K/uL (1.2-3.4) L 11/04/21 08:10 [place] # (Auto) 1.85 K/uL (0.11-0.59) H 11/04/21 08:10 Eos # (Auto) 0.02 K/uL (0-0.5) 11/04/21 08:10 Baso # (Auto) 0.02 K/uL (0-0.2) 11/04/21 08:10 Immature Gran # (Auto) 0.05 K/uL (0.00-0.02) H 11/04/21 08:10 PT 10.9 Seconds (9.0-12.0) 10/31/21 19:39 INR 1.0 (0.9-1.1) 10/31/21 19:39 APTT 27.4 Seconds (21.0-31.0) 11/03/21 07:45 PTT Ratio 1.0 11/03/21 07:45 Sodium 136 mmol/L (136-145) 11/04/21 08:10 Potassium 3.6 mmol/L (3.5-5.1) 11/04/21 08:10 Chloride 98 mmol/L (98-107) 11/04/21 08:10 Carbon Dioxide 30 mmol/L (21-32) 11/04/21 08:10 Anion Gap 8 (3-11) 11/04/21 08:10 BUN 16 mg/dl (6-23) 11/04/21 08:10 Creatinine 0.85 mg/dl (0.6-1.2) 11/04/21 08:10 Est Cr Clr Drug Dosing 42.4 ml/min 11/04/21 08:10 Est GFR ( Amer) 75.5 ml/min 11/04/21 08:10 Est GFR (Non-Af Amer) 65.2 ml/min 11/04/21 08:10 BUN/Creatinine Ratio 18.8 (10-20) 11/04/21 08:10 Glucose 121 mg/dl (70-99(Fasting)) H 11/04/21 08:10 Calcium 8.7 mg/dl (8.5-10.1) 11/04/21 08:10 Magnesium 1.7 mg/dl (1.7-2.4) 11/04/21 08:10 Total Bilirubin 0.4 mg/dl (0.2-1.0) 10/31/21 02:35 AST 24 U/L (13-39) 10/31/21 02:35 ALT 22 U/L (7-52) 10/31/21 02:35 Alkaline Phosphatase 95 U/L (34-104) 10/31/21 02:35 Troponin I High Sens 1303.4 pg/ml (0-14) H* D 11/01/21 04:29 Total Protein 8.3 gm/dl (6.0-8.3) 10/31/21 02:35 Albumin 4.7 gm/dl (3.4-5.0) 10/31/21 02:35 Globulin 3.6 gm/dl (2.5-4.0) 10/31/21 02:35 Albumin/Globulin Ratio 1.3 (0.9-2) 10/31/21 02:35 Urine Color Yellow 10/31/21 Unknown Urine Appearance Clear (Clear) 10/31/21 Unknown Urine pH 6.0 (4.5-7.5) 10/31/21 Unknown Ur Specific [place] 1.018 (1.000-1.030) 10/31/21 Unknown Urine Protein 1+ (Negative) H 10/31/21 Unknown Urine Glucose (UA) Negative (Negative) 10/31/21 Unknown Urine Ketones Trace (Negative) H 10/31/21 Unknown Urine Blood Negative (Negative) 10/31/21 Unknown Urine Nitrite Negative (Negative) 10/31/21 Unknown Urine Bilirubin Negative (Negative) 10/31/21 Unknown Urine Urobilinogen Negative (Negative) 10/31/21 Unknown Ur Leukocyte Esterase Negative (Negative) 10/31/21 Unknown Urine WBC (Auto) 1-5 /hpf (0-5) 10/31/21 Unknown Urine RBC (Auto) 0-4 /hpf (0-4) 10/31/21 Unknown U Hyaline Cast (Auto) 0 /lpf (0-5) 10/31/21 Unknown U Epithel Cells (Auto) 5-10 /lpf (0-5) H 10/31/21 Unknown Urine Bacteria (Auto) Negative (Negative) 10/31/21 Unknown Nasal Screen MRSA (PCR) Negative (Negative) 10/31/21 12:05 SARS-CoV-2, RNA, NAAT NEGATIVE (NEGATIVE) 10/31/21 02:58 Blood Type B Positive 11/02/21 15:18 Blood Type Recheck B Positive 11/02/21 16:36 Antibody Screen NEGATIVE 11/02/21 15:18 Impressions Hip/Pelvis X-Ray 11/03/21 13:51 XR hip 1V LT w pelvis HISTORY: 81 years-old Female IN PACU - A/P PELVIS and LATERAL HIP left hip total joint arthroplasty COMPARISON: Left hip radiographs 10/31/2021, pelvis radiograph 12/18/2020 TECHNIQUE: 2 views of the left hip FINDINGS: Left hip total joint arthroplasty demonstrates satisfactory alignment without definite acute fracture or unexpected opaque foreign body. Mild cortical buckling/irregularity is noted involving the right superior pubic ramus and ri ght ischium which appears to be new from prior. Expected postoperative soft tissue swelling with deep tissue air. Demineralized appearance of the bones. Arterial calcifications. IMPRESSION: 1. Left hip total joint arthroplasty with expected postoperative changes. 2. Mild cortical buckling of the right superior pubic ramus and right ischium. Attention at follow-up is recommended to exclude subtle acute fractures. ACT 112: Negative or not required by law. The above report was generated using voice recognition software. It may contain grammatical, syntax or spelling errors. by: Leonel Angeles M.D. 11/04/2021 8:51 AM (1) Hip fracture, left Encounter type: initial encounter Fracture type: closed Qualified Code(s): S72.002A - Fracture of unspecified part of neck of left femur, initial encounter for closed fracture
[2021-11-04] MEDS: VANCOMYCIN HCL 125 MG/2.5ML SOLN PO SCH (10:36)
[2021-11-04 10:53] LABS: Appearance Urine Turbid (Clear); Blood Urine 3+ (Negative); Color Urine Orange; Glucose Urine UA Negative (Negative); Ketones Urine 1+ (Negative); Leukocyte Esterase Urine 2+ (Negative); Nitrite Urine Positive (Negative); Protein Urine 2+ (Negative); RBC Urine Automated >30 /hpf (0-4); Specific Gravity Urine 1.036 (1.000-1.030); Urobilinogen Urine Negative (Negative); WBC Urine Automated >30 /hpf (0-5)
[2021-11-04 10:54] LABS: Bilirubin Urine 1+ (Negative)
[2021-11-04 11:12] LABS: Bacteria Urine Automated 1+ (Negative)
[2021-11-04] MEDS: cefTRIAXone SODIUM 1,000 MG in DEXTROSE 5% 50 ML IV SCH (12:36)
--- NOTE | 2021-11-04 13:03 | Hospitalist Progress Note ---
Date of Service November 04, 2021 Assessment & Plan (1) Non-ST elevation (NSTEMI) myocardial infarction: Plan: Finished heparin drip for 48 hours. TTE with moderate apical lateral wall motion abnormalities Metoplol 12.5mg BID (2) Hip fracture, left: Plan: s/p left hemiarthroplasty 11/03 (3) COPD (chronic obstructive pulmonary disease): Plan: History of chronic respiratory failure secondary to COPD and bronchiectasis on home oxygen No acute exacerbation of her symptoms (4) Bronchiectasis: (5) Hypothyroid: Plan: Continue supplement (6) Dementia: Plan: Dementia which has been progressing as per the outpatient neurological note (7) Depression: Plan: No acute symptoms Plan: Fever this morning -CXR negative for pneumonia but straight cath UA appears infected. Start ceftriaxone, follow up urine culture DVT prophylaxis -aspirin, SCD and TEDS per ortho. Will increase aspirin 81mg to 324mg daily CODE STATUS She was temporarily Full code for surgery, code status changed back to DNR/DNI after discussing with family Admission and Anticipated Discharge Date Admission Date: October 31, 2021 Subjective went for left hip surgery yesterday With help, she ate her breakfast this morning Worked with PT/OT as well Denies any specific complaints currently. Remains pleasantly confused Fever this morning Physical Exam Physical Exam: No acute distress, confused, non toxic ENMT: Mucous membrane dry Respiratory: No wheezing/rhonchi/rales Cardiovascular: regular rate and rhythm, no murmurs/rubs Gastrointestinal (Abdomen): soft, non tender Musculoskeletal: No edema, left thigh with no significant swelling Neurologic: demented at baseline, awake, very confused, verbal and attempts to answer questions but answers are inaccurate Results & Data Results & Data ([facility]) Vital Signs (Past 12 Hours) Vital Signs Temp Pulse Pulse Resp BP Pulse Ox 11/04/21 11:00 37.1 C 94 H 16 145/70 H 94 11/04/21 10:41 92 H 11/04/21 07:00 38.1 C H 95 H 20 150/70 H 100 11/04/21 03:00 37.4 C 78 20 180/79 H 99 Laboratory Results Short CBC 11/04/21 Range/Units 08:10 WBC 15.87 H (4.8-10.8) K/uL Hgb 9.7 L (12.0-16.0) g/dL Hct 30.4 L (37-47) % Plt Count 224 (130-400) K/uL BMP 11/04/21 08:10 Sodium 136 Potassium 3.6 Chloride 98 Carbon Dioxide 30 BUN 16 Creatinine 0.85 Glucose 121 H Calcium 8.7 Urine 11/04/21 Range/Units Unknown Urine Color [place] Urine Appearance Turbid A (Clear) Urine pH 5.0 (4.5-7.5) Ur Specific [place] 1.036 H (1.000-1.030) Urine Protein 2+ H (Negative) Urine Glucose (UA) Negative (Negative) Medications Administered Current Inpatient Medications Acetaminophen (Acetaminophen 325 Mg Tab) 650 mg PO Q8 [facility] Stop: 12/02/21 13:59 Last Admin: 11/04/21 05:18 Dose: 650 mg Documented by: Albuterol (Albuterol 0.083% Nebu Soln 3 Ml Vial) 2.5 mg INH QID PRN; Protocol PRN Reason: Shortness Of Breath Or Wheezing Stop: 11/30/21 08:05 Aspirin (Aspirin 81 Mg Ectab) 81 mg PO QAM [facility] Stop: 11/30/21 08:59 Last Admin: 11/04/21 07:51 Dose: 81 mg Documented by: Azelastine HCl (Azelastine Hcl 0.1% Nasal 200 Sprays/27,400 Mcg Btl) 2 sprays NA BIDM [facility] Stop: 11/30/21 16:59 Last Admin: 11/04/21 07:52 Dose: 2 sprays Documented by: Bisacodyl (Bisacodyl 10 Mg Supp) 10 mg SD DAILY PRN PRN Reason: Constipation Stop: 12/03/21 14:53 Calcium Carbonate (Calcium Carbonate 500 Mg Chewable Tab) 500 mg PO QDD [facility] Stop: 11/30/21 16:29 Last Admin: 11/03/21 15:43 Dose: 500 mg Documented by: Clonazepam (Clonazepam 0.5 Mg Tab) 0.5 mg PO HS [facility] Stop: 11/30/21 20:59 Last Admin: 11/03/21 19:48 Dose: 0.5 mg Documented by: Docusate Sodium (Docusate Sodium 100 Mg Cap) 100 mg PO BID [facility] Stop: 12/03/21 20:59 Last Admin: 11/04/21 07:52 Dose: 100 mg Documented by: Donepezil HCl (Donepezil Hcl 5 Mg Tab) 5 mg PO DAILY [facility] Stop: 11/30/21 08:59 Last Admin: 11/04/21 07:51 Dose: 5 mg Documented by: Famotidine (Famotidine 20 Mg Tab) 20 mg PO BID [facility] Stop: 11/30/21 08:59 Last Admin: 11/04/21 07:51 Dose: 20 mg Documented by: Folic Acid (Folic Acid 1 Mg Tab) 1 mg PO DAILY [facility] Stop: 11/30/21 08:59 Last Admin: 11/04/21 07:52 Dose: 1 mg Documented by: Hydromorphone HCl (Hydromorphone Inj 0.5 Mg/0.5 Ml Syr) 0.5 mg IV Q3H PRN PRN Reason: Pain Stop: 11/14/21 05:31 Last Admin: 11/02/21 10:52 Dose: 0.5 mg Documented by: Ceftriaxone Sodium 1,000 mg/ (Dextrose) 60 mls @ 120 mls/hr IV Q24H [facility]; Protocol Stop: 11/09/21 11:59 Last Admin: 11/04/21 12:36 Dose: 120 mls/hr Documented by: Latanoprost (Latanoprost 0.005% Op Soln 2.5 Ml Btl) 1 drops OP PM [facility] Stop: 11/30/21 20:59 Last Admin: 11/03/21 19:50 Dose: 1 drops Documented by: Levothyroxine Sodium (Levothyroxine Sodium 112 Mcg Tablet) 112 mcg PO DAILYBB [facility] Stop: 11/30/21 08:59 Last Admin: 11/04/21 05:18 Dose: 112 mcg Documented by: Magnesium Hydroxide (Magnesium Hydroxide Susp 30 Ml Udc) 30 ml PO Q6H PRN PRN Reason: Constipation Stop: 12/03/21 14:53 Magnesium Oxide (Magnesium Oxide 400 Mg Tab) 400 mg PO QDD [facility] Stop: 11/30/21 16:29 Last Admin: 11/03/21 15:43 Dose: 400 mg Documented by: Metoprolol Tartrate (Metoprolol Tartrate 25 Mg Tab) 25 mg PO BID [facility] Stop: 12/04/21 20:59 Multivitamins (Multivitamin Tab) 1 tab PO QAM [facility] Stop: 12/04/21 08:59 Last Admin: 11/04/21 07:51 Dose: 1 tab Documented by: Naloxone HCl (Naloxone Hcl 0.4 Mg/1 Ml Vial/Carp) 0.1 mg IV Q5M PRN PRN Reason: Oversedation/Resp Depression Stop: 12/03/21 14:53 Ondansetron HCl (Ondansetron Inj 2 Mg/Ml 2 Ml Vial) 4 mg IV Q6H PRN PRN Reason: Nausea Stop: 11/30/21 05:31 Pantoprazole Sodium (Pantoprazole 40 Mg Tab) 40 mg PO DAILYBB [facility] Stop: 12/01/21 06:29 Last Admin: 11/04/21 05:18 Dose: 40 mg Documented by: Polyethylene Glycol (Polyethylene (Miralax) 17 Gm Pack) 17 gm PO DAILY PRN PRN Reason: Constipation Stop: 11/30/21 05:31 Raspberry (Raspberry Syrup 5 Ml Udp) 5 ml PO DAILY [facility] Stop: 11/10/21 08:59 Last Admin: 11/04/21 07:52 Dose: 5 ml Documented by: Sertraline HCl (Sertraline Hcl 100 Mg Tablet) 100 mg PO QAM [facility] Stop: 11/30/21 08:59 Last Admin: 11/04/21 07:51 Dose: 100 mg Documented by: Tramadol HCl (Tramadol Hcl 50 Mg Tablet) 50 mg PO Q4H PRN PRN Reason: Pain & Pre PT Stop: 12/03/21 14:53 Umeclidinium/Vilanterol (Umeclidinium/Vilanterol 62.5/25mcg 7 Puffs/Inhaler) 1 puffs INH DAILY [facility] Stop: 11/30/21 08:59 Last Admin: 11/04/21 07:52 Dose: 1 puffs Documented by: Vancomycin HCl (Vancomycin Hcl 125 Mg/2.5ml Soln) 125 mg PO DAILY [facility] Stop: 11/30/21 08:59 Last Admin: 11/04/21 10:36 Dose: 125 mg Documented by: Vitamin D (Cholecalciferol 1,000 Units 25 Mcg Tab) 2,000 units PO QAM [facility] Stop: 11/30/21 08:59 Last Admin: 11/04/21 07:51 Dose: 2,000 units Documented by: (1) Hip fracture, left Encounter type: initial encounter Fracture type: closed Qualified Code(s): S72.002A - Fracture of unspecified part of neck of left femur, initial encounter for closed fracture (2) COPD (chronic obstructive pulmonary disease) COPD type: unspecified COPD Qualified Code(s): J44.9 - Chronic obstructive pulmonary disease, unspecified (3) Bronchiectasis Bronchiectasis type: uncomplicated Qualified Code(s): J47.9 - Bronchiectasis, uncomplicated (4) Hypothyroid Hypothyroidism type: unspecified Qualified Code(s): E03.9 - Hypothyroidism, unspecified (5) Dementia Dementia type: Alzheimer's disease Alzheimer's disease onset: unspecified onset Dementia behavioral disturbance: without behavioral disturbance Qualified Code(s): G30.9 - Alzheimer's disease, unspecified; F02.80 - Dementia in other diseases classified elsewhere without behavioral disturbance (6) Depression Depression Type: major depressive disorder Major depression recurrence: unspecified whether recurrent Active/Remission status: remission status unspecified Qualified Code(s): F32.9 - Major depressive disorder, single episode, unspecified
[2021-11-04] MEDS: MAGNESIUM OXIDE 400 MG TAB PO SCH (15:34)
[2021-11-04] MEDS: CALCIUM CARBONATE 500 MG CHEWABLE TAB PO SCH (15:34)
[2021-11-04] MEDS: clonazePAM 0.5 MG TAB PO SCH (22:32)
[2021-11-04] MEDS: LATANOPROST 0.005% OP SOLN 2.5 ML BTL OP SCH (22:32)
[2021-11-05] MEDS: LEVOTHYROXINE SODIUM 112 MCG TABLET PO SCH (05:30)
[2021-11-05] MEDS: ACETAMINOPHEN 325 MG TAB PO SCH ×3 (05:30→20:33)
[2021-11-05] MEDS: PANTOprazole 40 MG TAB PO SCH (05:30)
[2021-11-05 06:42] LABS: Hemoglobin 9.4 g/dL (12.0-16.0); Mean Corpuscular Hemoglobin 28.1 pg (25-34); Mean Corpuscular Hgb Conc 31.3 g/dL (32-36); Mean Corpuscular Volume 89.6 fL (80-100); Mean Platelet Volume 10.4 fL (7.4-10.4); Platelet Count 237 K/uL (130-400); RDW Coefficient of Variation 13.2 % (11.5-14.5); RDW Standard Deviation 43.2 fL (36.4-46.3); Red Blood Count 3.35 M/uL (4.2-5.4); White Blood Count 13.95 K/uL (4.8-10.8)
[2021-11-05 07:00] LABS: Est GFR (African American) 78.9 ml/min; Est GFR (Non-African American) 68.1 ml/min; Potassium 3.6 mmol/L (3.5-5.1)
--- NOTE | 2021-11-05 07:50 | Orthopedic Progress Note ---
Date of Service November 05, 2021 Assessment & Plan (1) Hip fracture, left: Plan: POD 2 left bipolar hemiarthroplasty PT/OT protocols as able. WBAT. DVT prophylaxis - ASA, SCD's, DEIDRA's Pain management as written. Leukocytosis -at 13 from 15 yesterday. Hemoglobin stable at 9.4. Follow temps for now. Surgical are appears benign. Started on Rocephin for possible UTI DC planning - planning for dc to SNF. Ortho will sign off at this time. Please call with any questions or concerns. Patient may follow-up with Dr. Siddiqui''s clinic about 14 days postoperatively. They can call the office for an appointment, . Admission and Anticipated Discharge Date Admission Date: October 31, 2021 Subjective Patient is postop day #1. Follows some commands but not all. Does not seem to be in distress however does have some tenderness to left hip. Patient does have history of dementia. Review of Systems Review of Systems: Unobtainable due to cognitive status Physical Exam Physical Exam: -Toes are mobile. Calf is soft. Thigh compartments soft and compressible. Silverlon dressing is clean, dry, intact. No surrounding erythema. No drainage and window. Leg lengths appear equal. Results & Data ([facility]) Vital Signs (Past 12 Hours) Vital Signs Temp Pulse Resp BP BP Pulse Ox 11/05/21 07:00 36.9 C 87 20 144/71 H 97 11/04/21 23:00 36.5 C 95 H 18 128/79 97 (1) Hip fracture, left Encounter type: initial encounter Fracture type: closed Qualified Code(s): S72.002A - Fracture of unspecified part of neck of left femur, initial encounter for closed fracture
[2021-11-05] MEDS ORDERED: ASPIRIN 325 MG ECTAB PO SCH (09:00)
[2021-11-05] MEDS: CHOLECALCIFEROL 1,000 UNITS 25 MCG TAB PO SCH (09:11)
[2021-11-05] MEDS: DONEPEZIL HCL 5 MG TAB PO SCH (09:11)
[2021-11-05] MEDS: FAMOTIDINE 20 MG TAB PO SCH ×2 (09:11→20:33)
[2021-11-05] MEDS: AZELASTINE HCL 0.1% NASAL 200 SPRAYS/27,400 MCG BTL SCH ×2 (09:11→16:52)
[2021-11-05] MEDS: MULTIVITAMIN TAB PO SCH (09:12)
[2021-11-05] MEDS: SERTRALINE HCL 100 MG TABLET PO SCH (09:12)
[2021-11-05] MEDS: FOLIC ACID 1 MG TAB PO SCH (09:12)
[2021-11-05] MEDS: METOPROLOL TARTRATE 25 MG TAB PO SCH ×2 (09:12→20:33)
[2021-11-05] MEDS: VANCOMYCIN HCL 125 MG/2.5ML SOLN PO SCH (09:13)
[2021-11-05] MEDS: RASPBERRY SYRUP 5 ML UDP PO SCH (09:13)
[2021-11-05] MEDS: DOCUSATE SODIUM 100 MG CAP PO SCH ×2 (09:13→20:33)
[2021-11-05] MEDS: SACCHAROMYCES BOULARDII 250 MG CAP PO SCH (10:12)
[2021-11-05] MEDS: UMECLIDINIUM/VILANTEROL 62.5/25MCG 7 PUFFS/INHALER INH SCH (10:12)
--- NOTE | 2021-11-05 11:05 | Hospitalist Progress Note ---
Date of Service November 05, 2021 Assessment & Plan (1) Non-ST elevation (NSTEMI) myocardial infarction: Plan: Finished heparin drip for 48 hours. TTE with moderate apical lateral wall motion abnormalities Metoplol 12.5mg BID (2) Hip fracture, left: Plan: s/p left hemiarthroplasty 11/03 (3) COPD (chronic obstructive pulmonary disease): Plan: History of chronic respiratory failure secondary to COPD and bronchiectasis on home oxygen No acute exacerbation of her symptoms (4) Bronchiectasis: (5) Hypothyroid: Plan: Continue supplement (6) Dementia: Plan: Dementia which has been progressing as per the outpatient neurological note (7) Depression: Plan: No acute symptoms Plan: Fever 11/04 -CXR negative for pneumonia but straight cath UA appears infected. Started ceftriaxone, follow up urine culture -no further recurrence DVT prophylaxis -aspirin 324mg daily, SCD and TEDS per ortho CODE STATUS DNR/DNI Disposition -Family requests placement to [facility] Admission and Anticipated Discharge Date Admission Date: October 31, 2021 Subjective Yesterday evening became somewhat confused, confusion improved after evening time maury Family (daughter and son) will be coming in during extended visiting hours to help with patient care and orientation She ate her meals yesterday and participated with PT Remains afebrile Physical Exam Physical Exam: Frail, elderly, pleasantly demented Respiratory: Breathing comfortably, no wheezing/rhonchi Cardiovascular: Regular rate and rhythm, no murmurs/rubs/gallops Gastrointestinal (Abdomen): soft, non tender, non distended Musculoskeletal: no edema Neurologic: awake, baseline advanced dementia, spontaneously moving extremities Results & Data Results & Data ([facility]) Vital Signs (Past 12 Hours) Vital Signs Temp Pulse Resp BP Pulse Ox 11/05/21 07:00 36.9 C 87 20 144/71 H 97 Laboratory Results Short CBC 11/05/21 Range/Units 06:17 WBC 13.95 H (4.8-10.8) K/uL Hgb 9.4 L (12.0-16.0) g/dL Hct 30.0 L (37-47) % Plt Count 237 (130-400) K/uL BMP 11/05/21 06:08 Sodium 139 Potassium 3.6 Chloride 101 Carbon Dioxide 29 BUN 18 Creatinine 0.82 Glucose 94 Calcium 9.0 Medications Administered Current Inpatient Medications Acetaminophen (Acetaminophen 325 Mg Tab) 650 mg PO Q8 [facility] Stop: 12/02/21 13:59 Last Admin: 11/05/21 05:30 Dose: 650 mg Documented by: Albuterol (Albuterol 0.083% Nebu Soln 3 Ml Vial) 2.5 mg INH QID PRN; Protocol PRN Reason: Shortness Of Breath Or Wheezing Stop: 11/30/21 08:05 Aspirin (Aspirin 325 Mg Ectab) 325 mg PO QAM [facility] Stop: 12/05/21 08:59 Last Admin: 11/05/21 09:12 Dose: 325 mg Documented by: Azelastine HCl (Azelastine Hcl 0.1% Nasal 200 Sprays/27,400 Mcg Btl) 2 sprays NA BIDM [facility] Stop: 11/30/21 16:59 Last Admin: 11/05/21 09:11 Dose: 2 sprays Documented by: Bisacodyl (Bisacodyl 10 Mg Supp) [address] DAILY PRN PRN Reason: Constipation Stop: 12/03/21 14:53 Calcium Carbonate (Calcium Carbonate 500 Mg Chewable Tab) 500 mg PO QDD [facility] Stop: 11/30/21 16:29 Last Admin: 11/04/21 15:34 Dose: 500 mg Documented by: Clonazepam (Clonazepam 0.5 Mg Tab) 0.5 mg PO HS [facility] Stop: 11/30/21 20:59 Last Admin: 11/04/21 22:32 Dose: 0.5 mg Documented by: Docusate Sodium (Docusate Sodium 100 Mg Cap) 100 mg PO BID [facility] Stop: 12/03/21 20:59 Last Admin: 11/05/21 09:13 Dose: Not Given Documented by: Donepezil HCl (Donepezil Hcl 5 Mg Tab) 5 mg PO DAILY [facility] Stop: 11/30/21 08:59 Last Admin: 11/05/21 09:11 Dose: 5 mg Documented by: Famotidine (Famotidine 20 Mg Tab) 20 mg PO BID [facility] Stop: 11/30/21 08:59 Last Admin: 11/05/21 09:11 Dose: 20 mg Documented by: Folic Acid (Folic Acid 1 Mg Tab) 1 mg PO DAILY [facility] Stop: 11/30/21 08:59 Last Admin: 11/05/21 09:12 Dose: 1 mg Documented by: Ceftriaxone Sodium 1,000 mg/ (Dextrose) 60 mls @ 120 mls/hr IV Q24H [facility]; Protocol Stop: 11/09/21 11:59 Last Infusion: 11/04/21 13:07 Dose: Infused Documented by: Latanoprost (Latanoprost 0.005% Op Soln 2.5 Ml Btl) 1 drops OP PM [facility] Stop: 11/30/21 20:59 Last Admin: 11/04/21 22:32 Dose: 1 drops Documented by: Levothyroxine Sodium (Levothyroxine Sodium 112 Mcg Tablet) 112 mcg PO DAILYBB [facility] Stop: 11/30/21 08:59 Last Admin: 11/05/21 05:30 Dose: 112 mcg Documented by: Magnesium Hydroxide (Magnesium Hydroxide Susp 30 Ml Udc) 30 ml PO Q6H PRN PRN Reason: Constipation Stop: 12/03/21 14:53 Magnesium Oxide (Magnesium Oxide 400 Mg Tab) 400 mg PO QDD [facility] Stop: 11/30/21 16:29 Last Admin: 11/04/21 15:34 Dose: 400 mg Documented by: Metoprolol Tartrate (Metoprolol Tartrate 25 Mg Tab) 25 mg PO BID [facility] Stop: 12/04/21 20:59 Last Admin: 11/05/21 09:12 Dose: 25 mg Documented by: Multivitamins (Multivitamin Tab) 1 tab PO QAM [facility] Stop: 12/04/21 08:59 Last Admin: 11/05/21 09:12 Dose: 1 tab Documented by: Naloxone HCl (Naloxone Hcl 0.4 Mg/1 Ml Vial/Carp) 0.1 mg IV Q5M PRN PRN Reason: Oversedation/Resp Depression Stop: 12/03/21 14:53 Ondansetron HCl (Ondansetron Inj 2 Mg/Ml 2 Ml Vial) 4 mg IV Q6H PRN PRN Reason: Nausea Stop: 11/30/21 05:31 Pantoprazole S[facility] 40 [facility]: 12/01/21 06:29 Last Admin: 11/05/21 05:30 Dose: 40 mg Documented by: Polyethylene Glycol (Polyethylene (Miralax) 17 Gm Pack) 17 gm PO DAILY PRN PRN Reason: Constipation Stop: 11/30/21 05:31 Raspberry (Raspberry Syrup 5 Ml Udp) 5 ml PO DAILY [facility] Stop: 11/10/21 08:59 Last Admin: 11/05/21 09:13 Dose: 5 ml Documented by: Saccharomyces Boulardii (Saccharomyces Boulardii 250 Mg Cap) 250 mg PO DAILY [facility] Stop: 12/05/21 08:59 Last Admin: 11/05/21 10:12 Dose: 250 mg Documented by: Sertraline HCl (Sertraline Hcl 100 Mg Tablet) 100 mg PO QAM [facility] Stop: 11/30/21 08:59 Last Admin: 11/05/21 09:12 Dose: 100 mg Documented by: Tramadol HCl (Tramadol Hcl 50 Mg Tablet) 50 mg PO Q4H PRN PRN Reason: Pain & Pre PT Stop: 12/03/21 14:53 Umeclidinium/Vilanterol (Umeclidinium/Vilanterol 62.5/25mcg 7 Puffs/Inhaler) 1 puffs INH DAILY [facility] Stop: 11/30/21 08:59 Last Admin: 11/05/21 10:12 Dose: 1 puffs Documented by: Vancomycin HCl (Vancomycin Hcl 125 Mg/2.5ml Soln) 125 mg PO DAILY [facility] Stop: 11/30/21 08:59 Last Admin: 11/05/21 09:13 Dose: 125 mg Documented by: Vitamin D (Cholecalciferol 1,000 Units 25 Mcg Tab) 2,000 units PO QAM [facility] Stop: 11/30/21 08:59 Last Admin: 11/05/21 09:11 Dose: 2,000 units Documented by: (1) Hip fracture, left Encounter type: initial encounter Fracture type: closed Qualified Code(s): S72.002A - Fracture of unspecified part of neck of left femur, initial encounter for closed fracture (2) COPD (chronic obstructive pulmonary disease) COPD type: unspecified COPD Qualified Code(s): J44.9 - Chronic obstructive pulmonary disease, unspecified (3) Bronchiectasis Bronchiectasis type: uncomplicated Qualified Code(s): J47.9 - Bronchiectasis, uncomplicated (4) Hypothyroid Hypothyroidism type: unspecified Qualified Code(s): E03.9 - Hypothyroidism, unspecified (5) Dementia Dementia type: Alzheimer's disease Alzheimer's disease onset: unspecified onset Dementia behavioral disturbance: without behavioral disturbance Qualified Code(s): G30.9 - Alzheimer's disease, unspecified; F02.80 - Dementia in other diseases classified elsewhere without behavioral disturbance (6) Depression Depression Type: major depressive disorder Major depression recurrence: unspecified whether recurrent Active/Remission status: remission status unspecified Qualified Code(s): F32.9 - Major depressive disorder, single episode, unspecified
[2021-11-05] MEDS: traMADol HCL 50 MG TABLET PO PRN (12:41)
[2021-11-05] MEDS: cefTRIAXone SODIUM 1,000 MG in DEXTROSE 5% 50 ML IV SCH (13:53)
--- NOTE | 2021-11-05 15:31 | Cardiology Progress Note ---
Date of Service November 05, 2021 Assessment & Plan (1) Non-ST elevation (NSTEMI) myocardial infarction: (2) Hip fracture, left: (3) COPD (chronic obstructive pulmonary disease): (4) Dementia: Plan: 81-year-old female admitted with NSTEMI and hip fracture. Patient completed 48 hours of intravenous heparin infusion. Hip repair performed 11/03/2021 without complication. Hemoglobin has trended downward to 9.4gm/dL postoperatively. Reduce aspirin to 81 mg daily. Continue metoprolol tartrate 25 mg twice daily. Add statin therapy, atorvastatin 20 mg daily this evening. Consider addition of clopidogrel in a.m. for medical management of non-STEMI. Cardiovascular status and recommendations discussed with patient's son at bedside. All questions answered to his satisfaction. Admission and Anticipated Discharge Date Admission Date: October 31, 2021 Subjective Patient seen examined the bedside. Awake and alert today however short-term mem ory remains poor. She does not recall what she ate for lunch. Denies any chest pain or hip discomfort. Telemetry discontinued. Hemoglobin stable today. No signs/symptoms of GI/ blood loss. Review of Systems Review of Systems: Unobtainable due to cognitive status Physical Exam Constitutional: + ill appearing and + cachectic; no acute distress Respiratory: no labored breathing, no retractions and does not use accessory muscles Auscultation: + diminished lung sounds (Bilateral) and + rhonchi (Bilateral); no crackles, no rales and no wheezes Cardiovascular: Rate/Rhythm: regular rate and regular rhythm Heart Sounds: normal S1 and normal S2; no murmur Vessels: no JVD and + radial pulses abnormal Extremities: no edema Gastrointestinal (Abdomen): Inspection/Auscultation: abdomen normal to ins pection and normal bowel sounds; abdomen not distended Percussion/Palpation: abdomen soft; abdomen nontender, no guarding and abdomen not rigid Neurologic: CN's II-XI intact bilaterally and moves all extremities; no focal motor deficits Motor/Sensory: no tremor Psychiatric: Orientation: oriented to person Results & Data ([facility]) Vital Signs (Past 12 Hours) Vital Signs Temp Pulse Resp BP Pulse Ox 11/05/21 15:07 37.0 C 89 20 93/55 L 95 11/05/21 07:00 36.9 C 87 20 144/71 H 97 (1) Dementia Alzheimer's disease onset: unspecified onset Dementia behavioral disturbance: without behavioral disturbance Dementia type: Alzheimer's disease Qualified Code(s): G30.9 - Alzheimer's disease, unspecified; F02.80 - Dementia in other diseases classified elsewhere without behavioral disturbance (2) COPD (chronic obstructive pulmonary disease) COPD type: unspecified COPD Qualified Code(s): J44.9 - Chronic obstructive pulmonary disease, unspecified (3) Hip fracture, left Encounter type: initial encounter Fracture type: closed Qualified Code(s): S72.002A - Fracture of unspecified part of neck of left femur, initial encounter for closed fracture
[2021-11-05] MEDS: CALCIUM CARBONATE 500 MG CHEWABLE TAB PO SCH (16:51)
[2021-11-05] MEDS: MAGNESIUM OXIDE 400 MG TAB PO SCH (16:51)
[2021-11-05] MEDS: clonazePAM 0.5 MG TAB PO SCH (20:33)
[2021-11-05] MEDS: LATANOPROST 0.005% OP SOLN 2.5 ML BTL OP SCH (20:34)
[2021-11-05] MEDS: ATORVASTATIN 20 MG TAB PO SCH (22:21)
[2021-11-06 05:44] LABS: Hematocrit (blood only) 27.6 % (37-47); Hemoglobin 8.5 g/dL (12.0-16.0); Mean Corpuscular Hemoglobin 27.6 pg (25-34); Mean Corpuscular Hgb Conc 30.8 g/dL (32-36); Mean Corpuscular Volume 89.6 fL (80-100); Mean Platelet Volume 10.2 fL (7.4-10.4); Platelet Count 273 K/uL (130-400); RDW Coefficient of Variation 13.4 % (11.5-14.5); Red Blood Count 3.08 M/uL (4.2-5.4); White Blood Count 11.31 K/uL (4.8-10.8)
[2021-11-06] MEDS: LEVOTHYROXINE SODIUM 112 MCG TABLET PO SCH (05:59)
[2021-11-06] MEDS: ACETAMINOPHEN 325 MG TAB PO SCH ×3 (05:59→21:40)
[2021-11-06 06:12] LABS: BUN Creatinine Ratio 23.3 (10-20); Calcium 8.5 mg/dl (8.5-10.1); Creatinine Clr Calc Pharmacy 31.1 ml/min; Est GFR (African American) 51.9 ml/min; Est GFR (Non-African American) 44.7 ml/min; Potassium 3.3 mmol/L (3.5-5.1)
[2021-11-06] MEDS: PANTOprazole 40 MG TAB PO SCH (06:12)
--- NOTE | 2021-11-06 07:54 | Electrocardiogram Report ---
Test Reason : Blood Pressure : / mmHG Vent. Rate : 093 BPM Atrial Rate : 093 BPM P-R Int : 212 ms QRS Dur : 074 ms QT Int : 360 ms P-R-T Axes : 072 -07 077 degrees QTc Int : 447 ms Sinus rhythm with 1st degree A-V block Possible Left atrial enlargement Low voltage QRS Cannot rule out Anteroseptal infarct (cited on or before 10-OCT-2020) Abnormal ECG When compared with ECG of 02-NOV-2021 07:23, Questionable change in initial forces of Anterior leads T wave inversion now evident in Anterior leads Confirmed by Chris Hill ([id number]) on 11/06/2021 7:54:16 AM Referred By: REFERRED SELF Confirmed By:Chris Hill
[2021-11-06] MEDS: UMECLIDINIUM/VILANTEROL 62.5/25MCG 7 PUFFS/INHALER INH SCH (09:44)
[2021-11-06] MEDS: VANCOMYCIN HCL 125 MG/2.5ML SOLN PO SCH (09:44)
[2021-11-06] MEDS: CEFEPIME 2,000 MG in SYRINGE 0 ML IV SCH ×2 (09:44→21:44)
[2021-11-06] MEDS: AZELASTINE HCL 0.1% NASAL 200 SPRAYS/27,400 MCG BTL SCH ×2 (09:44→15:10)
[2021-11-06] MEDS: SERTRALINE HCL 100 MG TABLET PO SCH (09:45)
[2021-11-06] MEDS: DONEPEZIL HCL 5 MG TAB PO SCH (09:45)
[2021-11-06] MEDS: SACCHAROMYCES BOULARDII 250 MG CAP PO SCH (09:45)
[2021-11-06] MEDS: MULTIVITAMIN TAB PO SCH (09:45)
[2021-11-06] MEDS: CHOLECALCIFEROL 1,000 UNITS 25 MCG TAB PO SCH (09:45)
[2021-11-06] MEDS: FOLIC ACID 1 MG TAB PO SCH (09:45)
[2021-11-06] MEDS: METOPROLOL TARTRATE 25 MG TAB PO SCH ×2 (09:46→21:41)
[2021-11-06] MEDS: RASPBERRY SYRUP 5 ML UDP PO SCH (09:46)
[2021-11-06] MEDS: ASPIRIN 81 MG ECTAB PO SCH (09:46)
[2021-11-06] MEDS: FAMOTIDINE 20 MG TAB PO SCH ×2 (09:46→21:41)
[2021-11-06] MEDS: DOCUSATE SODIUM 100 MG CAP PO SCH ×2 (09:46→21:43)
--- NOTE | 2021-11-06 11:50 | Cardiology Progress Note ---
Date of Service November 06, 2021 Assessment & Plan (1) Non-ST elevation (NSTEMI) myocardial infarction: (2) Hip fracture, left: (3) COPD (chronic obstructive pulmonary disease): (4) Dementia: Plan: 81-year-old female admitted with NSTEMI and hip fracture. Patient completed 48 hours of intravenous heparin infusion. Hip repair performed 11/03/2021 without complication. Hemoglobin has trended downward to 8.5gm/dL postoperatively. Continue low-dose aspirin, statin, and beta-cj therapy. We will avoid dual antiplatelet therapy at this time due to mildly worsening anemia, frailty, risk of bleeding complications. Admission and Anticipated Discharge Date Admission Date: October 31, 2021 Subjective Patient seen examined the bedside. Denies chest pain or shortness of breath. Telemetry discontinued. Poor historian due to dementia. No concerns reported by nursing. Hemoglobin trending downward. Review of Systems Review of Systems: Unobtainable due to mental health condition Physical Exam Constitutional: + ill appearing and + cachectic; no acute distress Respiratory: no labored breathing, no retractions and does not use accessory muscles Auscultation: + diminished lung sounds (Bilateral) and + rhonchi (Bilateral); no crackles, no rales and no wheezes Cardiovascular: Rate/Rhythm: regular rate and regular rhythm Heart Sounds: normal S1 and normal S2; no murmur Vessels: no JVD and + radial pulses abnormal Extremities: no edema Gastrointestinal (Abdomen): Inspection/Auscultation: abdomen normal to inspection and normal bowel sounds; abdomen not distended Percussion/Palpation: abdomen soft; abdomen nontender, no guarding and abdomen not rigid Neurologic: CN's II-XI intact bilaterally and moves all extremities; no focal motor deficits Motor/Sensory: no tremor Psychiatric: Orientation: oriented to person Results & Data ([facility]) Vital Signs (Past 12 Hours) Vital Signs Temp Pulse Resp BP BP Pulse Ox 11/06/21 07:37 36.9 C 84 20 119/63 95 11/06/21 01:00 76 18 113/58 L 93 11/06/21 00:26 68 22 97 (1) Hip fracture, left Encounter type: initial encounter Fracture type: closed Qualified Code(s): S72.002A - Fracture of unspecified part of neck of left femur, initial encounter for closed fracture (2) COPD (chronic obstructive pulmonary disease) COPD type: unspecified COPD Qualified Code(s): J44.9 - Chronic obstructive pulmonary disease, unspecified (3) Dementia Dementia type: Alzheimer's disease Alzheimer's disease onset: unspecified onset Dementia behavioral disturbance: without behavioral disturbance Qualified Code(s): G30.9 - Alzheimer's disease, unspecified; F02.80 - Dementia in other diseases classified elsewhere without behavioral disturbance
[2021-11-06] MEDS: traMADol HCL 50 MG TABLET PO PRN ×2 (13:00→21:39)
[2021-11-06] MEDS ORDERED: POTASSIUM CHLORIDE CRTAB 20 MEQ TABCR PO STA (13:16)
--- NOTE | 2021-11-06 13:21 | Hospitalist Progress Note ---
Date of Service November 06, 2021 Assessment & Plan (1) Non-ST elevation (NSTEMI) myocardial infarction: Plan: Finished heparin drip for 48 hours. TTE with moderate apical lateral wall motion abnormalities Metoplol 12.5mg BID -aspirin 81mg, started statin. consider plavix. defer to Cardiology (2) Hip fracture, left: Plan: s/p left hemiarthroplasty 11/03 (3) COPD (chronic obstructive pulmonary disease): Plan: History of chronic respiratory failure secondary to COPD and bronchiectasis on home oxygen No acute exacerbation of her symptoms (4) Bronchiectasis: (5) Hypothyroid: Plan: Continue supplement (6) Dementia: Plan: Dementia which has been progressing as per the outpatient neurological note Delirium recently with UTI and acute illness, delirium now resolved (7) Depression: Plan: No acute symptoms Plan: Pseudomonas UTI -ceftriaxone discontinued, started cefepime day 1 Cr rising slightly -will place back to [facility] at 80 cc/hr x 500 cc total (1 bag), repeat BMP tomorrow DVT prophylaxis -aspirin SCD and TEDS per ortho CODE STATUS DNR/DNI Disposition -Family requests placement to [place] Admission and Anticipated Discharge Date Admission Date: October 31, 2021 Subjective No further fevers More awake and alert today Tramadol is helping relieve her pain Family has been visiting and helping with meals, etc. She ate most of her breakfast and 1/2 her lunch yesterday which is her usual. Physical Exam Physical Exam: Appears brighter, more lucid, no acute distress Respiratory: breathing comfortably, no wheezing/rhonchi/rales Cardiovascular: regular rate and rhythm, no murmurs/rubs/gallops Gastrointestinal (Abdomen): soft, non tender Musculoskeletal: No edema Neurologic: awake, no agitation, spontaneously moving extremities Results & Data Results & Data ([facility]) Vital Signs (Past 12 Hours) Vital Signs Temp Pulse Resp BP Pulse Ox 11/06/21 07:37 36.9 C 84 20 119/63 95 Laboratory Results Short CBC 10/31/21 10/31/21 11/01/21 Range/Units 02:35 07:34 02:01 WBC (4.8-10.8) K/uL Hgb (12.0-16.0) g/dL Hct (37-47) % Plt Count (130-400) K/uL Creatinine 1.16 0.98 0.97 (0.6-1.2) mg/dl 11/02/21 11/03/21 11/06/21 Range/Units 05:25 07:45 05:08 WBC 11.31 H (4.8-10.8) K/uL Hgb 8.5 L (12.0-16.0) g/dL Hct 27.6 L (37-47) % Plt Count 273 (130-400) K/uL Creatinine 0.86 0.97 (0.6-1.2) mg/dl BMP 11/06/21 05:08 Sodium 142 Potassium 3.3 L Chloride 104 Carbon Dioxide 31 BUN 27 H Creatinine 1.16 D Glucose 97 Calcium 8.5 Medications Administered Current Inpatient Medications Acetaminophen (Acetaminophen 325 Mg Tab) 650 mg PO Q8 [facility] Stop: 12/02/21 13:59 Last Admin: 11/06/21 13:00 Dose: 650 mg Documented by: Albuterol (Albuterol 0.083% Nebu Soln 3 Ml Vial) 2.5 mg INH QID PRN; Protocol PRN Reason: Shortness Of Breath Or Wheezing Stop: 11/30/21 08:05 Last Admin: 11/06/21 00:23 Dose: 2.5 mg Documented by: Aspirin (Aspirin 81 Mg Ectab) 81 mg PO QAM [facility] Stop: 12/06/21 08:59 Last Admin: 11/06/21 09:46 Dose: 81 mg Documented by: Atorvastatin Calcium (Atorvastatin 20 Mg Tab) 20 mg PO HS [facility] Stop: 12/05/21 20:59 Last Admin: 11/05/21 22:21 Dose: Not Given Documented by: Azelastine HCl (Azelastine Hcl 0.1% Nasal 200 Sprays/27,400 Mcg Btl) 2 sprays NA BIDM [facility] Stop: 11/30/21 16:59 Last Admin: 11/06/21 09:44 Dose: 2 sprays Documented by: Bisacodyl (Bisacodyl 10 Mg Supp) 10 mg OR DAILY PRN PRN Reason: Constipation Stop: 12/03/21 14:53 Calcium Carbonate (Calcium Carbonate 500 Mg Chewable Tab) 500 mg PO QDD [facility] Stop: 11/30/21 16:29 Last Admin: 11/05/21 16:51 Dose: 500 mg Documented by: Clonazepam (Clonazepam 0.5 Mg Tab) 0.5 mg PO HS DAWIT Stop: 11/30/21 20:59 Last Admin: 11/05/21 20:33 Dose: 0.5 mg Documented by: Docusate Sodium (Docusate Sodium 100 Mg Cap) 100 mg PO BID DAWIT Stop: 12/03/21 20:59 Last Admin: 11/06/21 09:46 Dose: 100 mg Documented by: Donepezil HCl (Donepezil Hcl 5 Mg Tab) 5 mg PO DAILY DAWIT Stop: 11/30/21 08:59 Last Admin: 11/06/21 09:45 Dose: 5 mg Documented by: Famotidine (Famotidine 20 Mg Tab) 20 mg PO BID DAWIT Stop: 11/30/21 08:59 Last Admin: 11/06/21 09:46 Dose: 20 mg Documented by: Folic Acid (Folic Acid 1 Mg Tab) 1 mg PO DAILY DAWIT Stop: 11/30/21 08:59 Last Admin: 11/06/21 09:45 Dose: 1 mg Documented by: Cefepime HCl 2,000 mg/ Syringe 20 mls @ 5 mls/min IV Q12H [facility]; Protocol Stop: 11/16/21 08:29 Last Admin: 11/06/21 09:44 Dose: 5 mls/min Documented by: Sodium Chloride (Nss) 500 mls @ 80 mls/hr IV .Q6H15M [facility] Stop: 11/06/21 19:44 Latanoprost (Latanoprost 0.005% Op Soln 2.5 Ml Btl) 1 drops OP PM DAWIT Stop: 11/30/21 20:59 Last Admin: 11/05/21 20:34 Dose: 1 drops Documented by: Levothyroxine Sodium (Levothyroxine Sodium 112 Mcg Tablet) 112 mcg PO DAILYBB DAWIT Stop: 11/30/21 08:59 Last Admin: 11/06/21 05:59 Dose: 112 mcg Documented by: Magnesium Hydroxide (Magnesium Hydroxide Susp 30 Ml Udc) 30 ml PO Q6H PRN PRN Reason: Constipation Stop: 12/03/21 14:53 Magnesium Oxide (Magnesium Oxide 400 Mg Tab) 400 mg PO QDD DAWIT Stop: 11/30/21 16:29 Last Admin: 11/05/21 16:51 Dose: 400 mg Documented by: Metoprolol Tartrate (Metoprolol Tartrate 25 Mg Tab) 25 mg PO BID DAWIT Stop: 12/04/21 20:59 Last Admin: 11/06/21 09:46 Dose: 25 mg Documented by: Multivitamins (Multivitamin Tab) 1 tab PO QAM DAWIT Stop: 12/04/21 08:59 Last Admin: 11/06/21 09:45 Dose: 1 tab Documented by: Naloxone HCl (Naloxone Hcl 0.4 Mg/1 Ml Vial/Carp) 0.1 mg IV Q5M PRN PRN Reason: Oversedation/Resp Depression Stop: 12/03/21 14:53 Ondansetron HCl (Ondansetron Inj 2 Mg/Ml 2 Ml Vial) 4 mg IV Q6H PRN PRN Reason: Nausea Stop: 11/30/21 05:31 Pantoprazole Sodium (Pantoprazole 40 Mg Tab) 40 mg PO DAILYBB DAWIT Stop: 12/01/21 06:29 Last Admin: 11/06/21 06:12 Dose: 40 mg Documented by: Polyethylene Glycol (Polyethylene (Miralax) 17 Gm Pack) 17 gm PO DAILY PRN PRN Reason: Constipation Stop: 11/30/21 05:31 Potassium Chloride (Potassium Chloride Crtab 20 Meq Tabcr) 20 meq PO NOW STA Stop: 11/06/21 13:17 Raspberry (Raspberry Syrup 5 Ml Udp) 5 ml PO DAILY DAWIT Stop: 11/10/21 08:59 Last Admin: 11/06/21 09:46 Dose: 5 ml Documented by: Saccharomyces Boulardii (Saccharomyces Boulardii 250 Mg Cap) 250 mg PO DAILY DAWIT Stop: 12/05/21 08:59 Last Admin: 11/06/21 09:45 Dose: 250 mg Documented by: Sertraline HCl (Sertraline Hcl 100 Mg Tablet) 100 mg PO QAM DAWIT Stop: 11/30/21 08:59 Last Admin: 11/06/21 09:45 Dose: 100 mg Documented by: Tramadol HCl (Tramadol Hcl 50 Mg Tablet) 50 mg PO Q4H PRN PRN Reason: Pain & Pre PT Stop: 12/03/21 14:53 Last Admin: 11/06/21 13:00 Dose: 50 mg Documented by: Umeclidinium/Vilanterol (Umeclidinium/Vilanterol 62.5/25mcg 7 Puffs/Inhaler) 1 puffs INH DAILY DAWIT Stop: 11/30/21 08:59 Last Admin: 11/06/21 09:44 Dose: 1 puffs Documented by: Vancomycin HCl (Vancomycin Hcl 125 Mg/2.5ml Soln) 125 mg PO DAILY DAWIT Stop: 11/30/21 08:59 Last Admin: 11/06/21 09:44 Dose: 125 mg Documented by: Vitamin D (Cholecalciferol 1,000 Units 25 Mcg Tab) 2,000 units PO QAM DAWIT Stop: 11/30/21 08:59 Last Admin: 11/06/21 09:45 Dose: 2,000 units Documented by: (1) Dementia Alzheimer's disease onset: unspecified onset Dementia behavioral disturbance: without behavioral disturbance Dementia type: Alzheimer's disease Qualified Code(s): G30.9 - Alzheimer's disease, unspecified; F02.80 - Dementia in other diseases classified elsewhere without behavioral disturbance (2) Depression Active/Remission status: remission status unspecified Depression Type: major depressive disorder Major depression recurrence: unspecified whether recurrent Qualified Code(s): F32.9 - Major depressive disorder, single episode, unspecified (3) Hypothyroid Hypothyroidism type: unspecified Qualified Code(s): E03.9 - Hypothyroidism, unspecified (4) COPD (chronic obstructive pulmonary disease) COPD type: unspecified COPD Qualified Code(s): J44.9 - Chronic obstructive pulmonary disease, unspecified (5) Bronchiectasis Bronchiectasis type: uncomplicated Qualified Code(s): J47.9 - Bronchiectasis, uncomplicated (6) Hip fracture, left Encounter type: initial encounter Fracture type: closed Qualified Code(s): S72.002A - Fracture of unspecified part of neck of left femur, initial encounter for closed fracture
[2021-11-06] MEDS ORDERED: SODIUM CHLORIDE 0.9% 500 ML IV SCH (13:30)
[2021-11-06] MEDS: CALCIUM CARBONATE 500 MG CHEWABLE TAB PO SCH (15:10)
[2021-11-06] MEDS: MAGNESIUM OXIDE 400 MG TAB PO SCH (15:10)
[2021-11-06] MEDS: clonazePAM 0.5 MG TAB PO SCH (21:39)
[2021-11-06] MEDS: ATORVASTATIN 20 MG TAB PO SCH (21:43)
[2021-11-06] MEDS: LATANOPROST 0.005% OP SOLN 2.5 ML BTL OP SCH (21:45)
[2021-11-07] MEDS: ACETAMINOPHEN 325 MG TAB PO SCH ×3 (06:05→21:40)
[2021-11-07] MEDS: LEVOTHYROXINE SODIUM 112 MCG TABLET PO SCH (06:06)
[2021-11-07] MEDS: PANTOprazole 40 MG TAB PO SCH (06:07)
[2021-11-07 07:35] LABS: Hematocrit (blood only) 27.2 % (37-47); Hemoglobin 8.3 g/dL (12.0-16.0); Mean Corpuscular Hemoglobin 28.1 pg (25-34); Mean Corpuscular Hgb Conc 30.5 g/dL (32-36); Mean Corpuscular Volume 92.2 fL (80-100); Mean Platelet Volume 9.9 fL (7.4-10.4); Platelet Count 356 K/uL (130-400); RDW Coefficient of Variation 13.7 % (11.5-14.5); RDW Standard Deviation 46.2 fL (36.4-46.3); Red Blood Count 2.95 M/uL (4.2-5.4); White Blood Count 11.69 K/uL (4.8-10.8)
[2021-11-07 08:03] LABS: BUN Creatinine Ratio 29.3 (10-20); Calcium 8.6 mg/dl (8.5-10.1); Creatinine Clr Calc Pharmacy 36.4 ml/min; Est GFR (African American) 62.8 ml/min; Est GFR (Non-African American) 54.2 ml/min; Potassium 3.7 mmol/L (3.5-5.1)
[2021-11-07] MEDS: AZELASTINE HCL 0.1% NASAL 200 SPRAYS/27,400 MCG BTL SCH ×2 (08:58→18:11)
[2021-11-07] MEDS: ASPIRIN 81 MG ECTAB PO SCH (08:59)
[2021-11-07] MEDS: RASPBERRY SYRUP 5 ML UDP PO SCH (08:59)
[2021-11-07] MEDS: SACCHAROMYCES BOULARDII 250 MG CAP PO SCH (09:00)
[2021-11-07] MEDS: METOPROLOL TARTRATE 25 MG TAB PO SCH ×2 (09:01→21:44)
[2021-11-07] MEDS: DONEPEZIL HCL 5 MG TAB PO SCH (09:34)
[2021-11-07] MEDS: DOCUSATE SODIUM 100 MG CAP PO SCH ×2 (09:34→21:40)
[2021-11-07] MEDS: FAMOTIDINE 20 MG TAB PO SCH ×2 (09:34→21:41)
[2021-11-07] MEDS: FOLIC ACID 1 MG TAB PO SCH (09:35)
[2021-11-07] MEDS: UMECLIDINIUM/VILANTEROL 62.5/25MCG 7 PUFFS/INHALER INH SCH (09:35)
[2021-11-07] MEDS: MULTIVITAMIN TAB PO SCH (09:35)
[2021-11-07] MEDS: SERTRALINE HCL 100 MG TABLET PO SCH (09:35)
[2021-11-07] MEDS: CHOLECALCIFEROL 1,000 UNITS 25 MCG TAB PO SCH (09:35)
[2021-11-07] MEDS: VANCOMYCIN HCL 125 MG/2.5ML SOLN PO SCH (09:44)
[2021-11-07] MEDS: CEFEPIME 2,000 MG in SYRINGE 0 ML IV SCH ×2 (09:44→21:37)
--- NOTE | 2021-11-07 12:14 | Hospitalist Progress Note ---
Date of Service November 07, 2021 Assessment & Plan (1) Non-ST elevation (NSTEMI) myocardial infarction: Plan: Finished heparin drip for 48 hours. TTE with moderate apical lateral wall motion abnormalities Metoplol 12.5mg BID -aspirin 81mg, started statin. consider plavix. defer to Cardiology (2) Hip fracture, left: Plan: s/p left hemiarthroplasty 11/03 (3) COPD (chronic obstructive pulmonary disease): Plan: History of chronic respiratory failure secondary to COPD and bronchiectasis on home oxygen No acute exacerbation of her symptoms (4) Bronchiectasis: (5) Hypothyroid: Plan: Continue supplement (6) Dementia: Plan: Dementia which has been progressing as per the outpatient neurological note Delirium recently with UTI and acute illness, delirium now resolved (7) Depression: Plan: No acute symptoms Plan: Pseudomonas UTI -s/p ceftriaxone now discontinued. Cefepime day 2 today Cr rising slightly -will place back to [facility] at 80 cc/hr x 500 cc total (1 bag), Cr improved DVT prophylaxis -aspirin SCD and TEDS per ortho CODE STATUS DNR/DNI Disposition -Patient is medically stable for discharge pending placement to [place] (reportedly bed will be available on ) Admission and Anticipated Discharge Date Admission Date: October 31, 2021 Subjective Participated with PT again today Appetite is good, she ate breakfast this morning Patient with no specific complaints currently Remains afebrile Physical Exam Physical Exam: Pleasantly demented, no acute distress, non toxic Respiratory: breathing comfortably on room air, no wheezing/rhonchi/rales Cardiovascular: Regular rate and rhythm, no murmurs/rubs/gallops Gastrointestinal (Abdomen): Soft, non tender, non distended Musculoskeletal: No edema Neurologic: awake, follows commands, can answer simple questions Results & Data Results & Data ([facility]) Vital Signs (Past 12 Hours) Vital Signs Temp Pulse Resp BP Pulse Ox 11/07/21 07:56 36.5 C 71 18 115/61 92 Laboratory Results Short CBC 11/07/21 Range/Units 06:35 WBC 11.69 H (4.8-10.8) K/uL Hgb 8.3 L (12.0-16.0) g/dL Hct 27.2 L (37-47) % Plt Count 356 (130-400) K/uL [facility] 11/07/21 06:35 Sodium 141 Potassium 3.7 Chloride 105 Carbon Dioxide 30 BUN 29 H Creatinine 0.99 Glucose 89 Calcium 8.6 Medications Administered Current Inpatient Medications Acetaminophen (Acetaminophen 325 Mg Tab) 650 mg PO Q8 [facility] Stop: 12/02/21 13:59 Last Admin: 11/07/21 06:05 Dose: 650 mg Documented by: Albuterol (Albuterol 0.083% Nebu Soln 3 Ml Vial) 2.5 mg INH QID PRN; Protocol PRN Reason: Shortness Of Breath Or Wheezing Stop: 11/30/21 08:05 Last Admin: 11/06/21 00:23 Dose: 2.5 mg Documented by: Aspirin (Aspirin 81 Mg Ectab) 81 mg PO QAM [facility] Stop: 12/06/21 08:59 Last Admin: 11/07/21 08:59 Dose: 81 mg Documented by: Atorvastatin Calcium (Atorvastatin 20 Mg Tab) 20 mg PO [facility] Stop: 12/05/21 20:59 Last Admin: 11/06/21 21:43 Dose: 20 mg Documented by: Azelastine HCl (Azelastine Hcl 0.1% Nasal 200 Sprays/27,400 Mcg Btl) 2 sprays NA BIDM [facility] Stop: 11/30/21 16:59 Last Admin: 11/07/21 08:58 Dose: 2 sprays Documented by: Bisacodyl (Bisacodyl 10 Mg Supp) [address] DAILY PRN PRN Reason: Constipation Stop: 12/03/21 14:53 Calcium Carbonate (Calcium Carbonate 500 Mg Chewable Tab) 500 mg PO QDD [facility] Stop: 11/30/21 16:29 Last Admin: 11/06/21 15:10 Dose: 500 mg Documented by: Clonazepam (Clonazepam 0.5 Mg Tab) 0.5 mg PO [facility] Stop: 11/30/21 20:59 Last Admin: 11/06/21 21:39 Dose: 0.5 mg Documented by: Docusate Sodium (Docusate Sodium 100 Mg Cap) 100 mg PO BID [facility] Stop: 12/03/21 20:59 Last Admin: 11/07/21 09:34 Dose: 100 mg Documented by: Donepezil HCl (Donepezil Hcl 5 Mg Tab) 5 mg PO DAILY [facility] Stop: 11/30/21 08:59 Last Admin: 11/07/21 09:34 Dose: 5 mg Documented by: Famotidine (Famotidine 20 Mg Tab) 20 mg PO BID [facility] Stop: 11/30/21 08:59 Last Admin: 11/07/21 09:34 Dose: 20 mg Documented by: Folic Acid (Folic Acid 1 Mg Tab) 1 mg PO DAILY [facility] Stop: 11/30/21 08:59 Last Admin: 11/07/21 09:35 Dose: 1 mg Documented by: Cefepime HCl 2,000 mg/ Syringe 20 mls @ 5 mls/min IV Q12H [facility]; Protocol Stop: 11/16/21 08:29 Last Admin: 11/07/21 09:44 Dose: 5 mls/min Documented by: Latanoprost (Latanoprost 0.005% Op Soln 2.5 Ml Btl) 1 drops OP PM [facility] Stop: 11/30/21 20:59 Last Admin: 11/06/21 21:45 Dose: 1 drops Documented by: Levothyroxine Sodium (Levothyroxine Sodium 112 Mcg Tablet) 112 mcg PO DAILYBB [facility] Stop: 11/30/21 08:59 Last Admin: 11/07/21 06:06 Dose: 112 mcg Documented by: Magnesium Hydroxide (Magnesium Hydroxide Susp 30 Ml Udc) 30 ml PO Q6H PRN PRN Reason: Constipation Stop: 12/03/21 14:53 Magnesium Oxide (Magnesium Oxide 400 Mg Tab) 400 mg PO QDD [facility] Stop: 11/30/21 16:29 Last Admin: 11/06/21 15:10 Dose: 400 mg Documented by: Metoprolol Tartrate (Metoprolol Tartrate 25 Mg Tab) 25 mg PO BID [facility] Stop: 12/04/21 20:59 Last Admin: 11/07/21 09:01 Dose: 25 mg Documented by: Multivitamins (Multivitamin Tab) 1 tab PO QAM [facility] Stop: 12/04/21 08:59 Last Admin: 11/07/21 09:35 Dose: 1 tab Documented by: Naloxone HCl (Naloxone Hcl 0.4 Mg/1 Ml Vial/Carp) 0.1 mg IV Q5M PRN PRN Reason: Oversedation/Resp Depression Stop: 12/03/21 14:53 Ondansetron HCl (Ondansetron Inj 2 Mg/Ml 2 Ml Vial) 4 mg IV Q6H PRN PRN Reason: Nausea Stop: 11/30/21 05:31 Pantoprazole Sodium (Pantoprazole 40 Mg Tab) 40 mg PO DAILYBB [facility] Stop: 12/01/21 06:29 Last Admin: 11/07/21 06:07 Dose: 40 mg Documented by: Polyethylene Glycol (Polyethylene (Miralax) 17 Gm Pack) 17 gm PO DAILY PRN PRN Reason: Constipation Stop: 11/30/21 05:31 Raspberry (Raspberry Syrup 5 Ml Udp) 5 ml PO DAILY DAWIT Stop: 11/10/21 08:59 Last Admin: 11/07/21 08:59 Dose: 5 ml Documented by: Saccharomyces Boulardii (Saccharomyces Boulardii 250 Mg Cap) 250 mg PO DAILY DAWIT Stop: 12/05/21 08:59 Last Admin: 11/07/21 09:00 Dose: 250 mg Documented by: Sertraline HCl (Sertraline Hcl 100 Mg Tablet) 100 mg PO QAM [facility] Stop: 11/30/21 08:59 Last Admin: 11/07/21 09:35 Dose: 100 mg Documented by: Tramadol HCl (Tramadol Hcl 50 Mg Tablet) 50 mg PO Q4H PRN PRN Reason: Pain & Pre PT Stop: 12/03/21 14:53 Last Admin: 11/06/21 21:39 Dose: 50 mg Documented by: Umeclidinium/Vilanterol (Umeclidinium/Vilanterol 62.5/25mcg 7 Puffs/Inhaler) 1 puffs INH DAILY DAWIT Stop: 11/30/21 08:59 Last Admin: 11/07/21 09:35 Dose: 1 puffs Documented by: Vancomycin HCl (Vancomycin Hcl 125 Mg/2.5ml Soln) 125 mg PO DAILY DAWIT Stop: 11/30/21 08:59 Last Admin: 11/07/21 09:44 Dose: 125 mg Documented by: Vitamin D (Cholecalciferol 1,000 Units 25 Mcg Tab) 2,000 units PO QAM DAWIT Stop: 11/30/21 08:59 Last Admin: 11/07/21 09:35 Dose: 2,000 units Documented by: (1) Hip fracture, left Encounter type: initial encounter Fracture type: closed Qualified Code(s): S72.002A - Fracture of unspecified part of neck of left femur, initial encounter for closed fracture (2) COPD (chronic obstructive pulmonary disease) COPD type: unspecified COPD Qualified Code(s): J44.9 - Chronic obstructive pulmonary disease, unspecified (3) Bronchiectasis Bronchiectasis type: uncomplicated Qualified Code(s): J47.9 - Bronchiectasis, uncomplicated (4) Hypothyroid Hypothyroidism type: unspecified Qualified Code(s): E03.9 - Hypothyroidism, unspecified (5) Dementia Dementia type: Alzheimer's disease Alzheimer's disease onset: unspecified onset Dementia behavioral disturbance: without behavioral disturbance Qualified Code(s): G30.9 - Alzheimer's disease, unspecified; F02.80 - Dementia in other diseases classified elsewhere without behavioral disturbance (6) Depression Depression Type: major depressive disorder Major depression recurrence: unspecified whether recurrent Active/Remission status: remission status unspecified Qualified Code(s): F32.9 - Major depressive disorder, single episode, unspecified
[2021-11-07] MEDS: LIDOCAINE 5% 1 PATCH TD SCH (18:11)
[2021-11-07] MEDS: CALCIUM CARBONATE 500 MG CHEWABLE TAB PO SCH (18:12)
[2021-11-07] MEDS: MAGNESIUM OXIDE 400 MG TAB PO SCH (18:12)
[2021-11-07] MEDS: traMADol HCL 50 MG TABLET PO PRN (19:58)
[2021-11-07] MEDS: clonazePAM 0.5 MG TAB PO SCH (21:38)
[2021-11-07] MEDS: ATORVASTATIN 20 MG TAB PO SCH (21:40)
[2021-11-07] MEDS: GABAPENTIN 100 MG CAP PO SCH (21:41)
[2021-11-07] MEDS: LATANOPROST 0.005% OP SOLN 2.5 ML BTL OP SCH (21:42)
[2021-11-08] MEDS: PANTOprazole 40 MG TAB PO SCH (06:09)
[2021-11-08] MEDS: ACETAMINOPHEN 325 MG TAB PO SCH ×3 (06:09→22:12)
[2021-11-08] MEDS: LEVOTHYROXINE SODIUM 112 MCG TABLET PO SCH (06:09)
[2021-11-08 07:36] LABS: Hematocrit (blood only) 29.9 % (37-47); Hemoglobin 9.1 g/dL (12.0-16.0); Mean Corpuscular Hemoglobin 27.8 pg (25-34); Mean Corpuscular Hgb Conc 30.4 g/dL (32-36); Mean Corpuscular Volume 91.4 fL (80-100); Mean Platelet Volume 10.1 fL (7.4-10.4); Platelet Count 395 K/uL (130-400); RDW Coefficient of Variation 13.3 % (11.5-14.5); RDW Standard Deviation 44.8 fL (36.4-46.3); Red Blood Count 3.27 M/uL (4.2-5.4); White Blood Count 10.91 K/uL (4.8-10.8)
[2021-11-08 07:54] LABS: BUN Creatinine Ratio 25.3 (10-20); Calcium 8.9 mg/dl (8.5-10.1); Creatinine Clr Calc Pharmacy 37.5 ml/min; Potassium 3.8 mmol/L (3.5-5.1)
[2021-11-08] MEDS: AZELASTINE HCL 0.1% NASAL 200 SPRAYS/27,400 MCG BTL SCH ×2 (11:48→16:58)
[2021-11-08] MEDS: ASPIRIN 81 MG ECTAB PO SCH (11:48)
[2021-11-08] MEDS: FAMOTIDINE 20 MG TAB PO SCH ×2 (11:49→22:01)
[2021-11-08] MEDS: DONEPEZIL HCL 5 MG TAB PO SCH (11:49)
[2021-11-08] MEDS: CHOLECALCIFEROL 1,000 UNITS 25 MCG TAB PO SCH (11:49)
[2021-11-08] MEDS: DOCUSATE SODIUM 100 MG CAP PO SCH ×3 (11:49→22:11)
[2021-11-08] MEDS: FOLIC ACID 1 MG TAB PO SCH (11:50)
[2021-11-08] MEDS: SACCHAROMYCES BOULARDII 250 MG CAP PO SCH (11:50)
[2021-11-08] MEDS: GABAPENTIN 100 MG CAP PO SCH ×2 (11:50→22:02)
[2021-11-08] MEDS: LIDOCAINE 5% 1 PATCH TD SCH (11:50)
[2021-11-08] MEDS: SERTRALINE HCL 100 MG TABLET PO SCH (11:50)
[2021-11-08] MEDS: UMECLIDINIUM/VILANTEROL 62.5/25MCG 7 PUFFS/INHALER INH SCH (11:50)
[2021-11-08] MEDS: MULTIVITAMIN TAB PO SCH (11:50)
[2021-11-08] MEDS: METOPROLOL TARTRATE 25 MG TAB PO SCH ×2 (11:50→22:17)
[2021-11-08] MEDS: VANCOMYCIN HCL 125 MG/2.5ML SOLN PO SCH (12:00)
[2021-11-08] MEDS: RASPBERRY SYRUP 5 ML UDP PO SCH (12:00)
[2021-11-08] MEDS: CEFEPIME 2,000 MG in SYRINGE 0 ML IV SCH ×2 (12:00→22:17)
[2021-11-08] MEDS: traMADol HCL 50 MG TABLET PO PRN ×2 (12:09→22:12)
--- NOTE | 2021-11-08 15:13 | Hospitalist Progress Note ---
Date of Service November 08, 2021 Assessment & Plan (1) Non-ST elevation (NSTEMI) myocardial infarction: Plan: Finished heparin drip for 48 hours. TTE with moderate apical lateral wall motion abnormalities Metoplol 12.5mg BID -aspirin 81mg, started statin. No plavix per Cardiology (2) Hip fracture, left: Plan: s/p left hemiarthroplasty 11/03 -Pain control: Scheduled tylenol 650mg TID, started lidoderm patch and gabapentin 100mg BID 11/07, PRN tramadol for breakthrough pain (3) COPD (chronic obstructive pulmonary disease): Plan: History of chronic respiratory failure secondary to COPD and bronchiectasis on home oxygen No acute exacerbation of her symptoms (4) Bronchiectasis: (5) Hypothyroid: Plan: Continue supplement (6) Dementia: Plan: Dementia which has been progressing as per the outpatient neurological note Delirium recently with UTI and acute illness, delirium now resolved (7) Depression: Plan: No acute symptoms Plan: Pseudomonas UTI -s/p ceftriaxone now discontinued. Finishing 3 days of Cefepime today DVT prophylaxis -aspirin SCD and TEDS per ortho CODE STATUS DNR/DNI Disposition -Patient is medically stable for discharge pending placement to [facility] (reportedly bed will be available on ) Admission and Anticipated Discharge Date Admission Date: October 31, 2021 Subjective No events overnight. Remains afebrile Physical Exam Physical Exam: Patient just got repositioned and appears uncomfortable Respiratory: Breathing comfortably on 2L NC, no wheezing/rhonchi/rales Cardiovascular: Regular rate and rhythm, no murmurs/rubs Gastrointestinal (Abdomen): soft, non tender Musculoskeletal: No edema, no cyanosis Neurologic: awake, alert, a little more confused today, spontaneously moving extremities Results & Data Results & Data ([facility]) Vital Signs (Past 12 Hours) Vital Signs Temp Pulse Resp BP BP Pulse Ox 11/08/21 07:44 36.5 C 79 18 122/66 100 11/08/21 04:00 36.8 C 76 18 126/65 100 Laboratory Results Short CBC 11/08/21 Range/Units 07:03 WBC 10.91 H (4.8-10.8) K/uL Hgb 9.1 L (12.0-16.0) g/dL Hct 29.9 L (37-47) % Plt Count 395 (130-400) K/uL BMP 11/08/21 07:03 Sodium 138 Potassium 3.8 Chloride 103 Carbon Dioxide 31 BUN 24 H Creatinine 0.95 Glucose 88 Calcium 8.9 Medications Administered Current Inpatient Medications Acetaminophen (Acetaminophen 325 Mg Tab) 650 mg PO Q8 [facility] Stop: 12/02/21 13:59 Last Admin: 11/08/21 14:05 Dose: 650 mg Documented by: Albuterol (Albuterol 0.083% Nebu Soln 3 Ml Vial) 2.5 mg INH QID PRN; Protocol PRN Reason: Shortness Of Breath Or Wheezing Stop: 11/30/21 08:05 Last Admin: 11/06/21 00:23 Dose: 2.5 mg Documented by: Aspirin (Aspirin 81 Mg Ectab) 81 mg PO QAM [facility] Stop: 12/06/21 08:59 Last Admin: 11/08/21 11:48 Dose: 81 mg Documented by: Atorvastatin Calcium (Atorvastatin 20 Mg Tab) 20 mg PO HS [facility] Stop: 12/05/21 20:59 Last Admin: 11/07/21 21:40 Dose: 20 mg Documented by: Azelastine HCl (Azelastine Hcl 0.1% Nasal 200 Sprays/27,400 Mcg Btl) 2 sprays N A BIDM [facility] Stop: 11/30/21 16:59 Last Admin: 11/08/21 11:48 Dose: 2 sprays Documented by: Bisacodyl (Bisacodyl 10 Mg Supp) 10 mg HI DAILY PRN PRN Reason: Constipation Stop: 12/03/21 14:53 Calcium Carbonate (Calcium Carbonate 500 Mg Chewable Tab) 500 mg PO QDD [facility] Stop: 11/30/21 16:29 Last Admin: 11/07/21 18:12 Dose: 500 mg Documented by: Clonazepam (Clonazepam 0.5 Mg Tab) 0.5 mg PO HS [facility] Stop: 11/30/21 20:59 Last Admin: 11/07/21 21:38 Dose: 0.5 mg Documented by: Docusate Sodium (Docusate Sodium 100 Mg Cap) 100 mg PO BID [facility] Stop: 12/03/21 20:59 Last Admin: 11/08/21 12:03 Dose: Not Given Documented by: Donepezil HCl (Donepezil Hcl 5 Mg Tab) 5 mg PO DAILY [facility] Stop: 11/30/21 08:59 Last Admin: 11/08/21 11:49 Dose: 5 mg Documented by: Famotidine (Famotidine 20 Mg Tab) 20 mg PO BID [facility] Stop: 11/30/21 08:59 Last Admin: 11/08/21 11:49 Dose: 20 mg Documented by: Folic Acid (Folic Acid 1 Mg Tab) 1 mg PO DAILY [facility] Stop: 11/30/21 08:59 Last Admin: 11/08/21 11:50 Dose: 1 mg Documented by: Gabapentin (Gabapentin 100 Mg Cap) 100 mg PO BID [facility] Stop: 12/07/21 20:59 Last Admin: 11/08/21 11:50 Dose: 100 mg Documented by: Cefepime HCl 2,000 mg/ Syringe 20 mls @ 5 mls/min IV Q12H [facility]; Protocol Stop: 11/09/21 08:29 Last Admin: 11/08/21 12:00 Dose: 5 mls/min Documented by: Latanoprost (Latanoprost 0.005% Op Soln 2.5 Ml Btl) 1 drops OP PM [facility] Stop: 11/30/21 20:59 Last Admin: 11/07/21 21:42 Dose: 1 drops Documented by: Levothyroxine Sodium (Levothyroxine Sodium 112 Mcg Tablet) 112 mcg PO DAILYBB [facility] Stop: 11/30/21 08:59 Last Admin: 11/08/21 06:09 Dose: 112 mcg Documented by: Lidocaine (Lidocaine 5% 1 Patch) 1 patch TD QAM [facility] Stop: 12/07/21 16:44 Last Admin: 11/08/21 11:50 Dose: 1 patch Documented by: Magnesium Hydroxide (Magnesium Hydroxide Susp 30 Ml Udc) 30 ml PO Q6H PRN PRN Reason: Constipation Stop: 12/03/21 14:53 Magnesium Oxide (Magnesium Oxide 400 Mg Tab) 400 mg PO QDD [facility] Stop: 11/30/21 16:29 Last Admin: 11/07/21 18:12 Dose: 400 mg Documented by: Metoprolol Tartrate (Metoprolol Tartrate 25 Mg Tab) 25 mg PO BID [facility] Stop: 12/04/21 20:59 Last Admin: 11/08/21 11:50 Dose: 25 mg Documented by: Miscellaneous (Remove Lidoderm Patch) 1 ea N/A DAILY@2100 [facility] Stop: 12/07/21 22:59 Last Admin: 11/07/21 21:42 Dose: 1 ea Documented by: Multivitamins (Multivitamin Tab) 1 tab PO QAM [facility] Stop: 12/04/21 08:59 Last Admin: 11/08/21 11:50 Dose: 1 tab Documented by: Naloxone HCl (Naloxone Hcl 0.4 Mg/1 Ml Vial/Carp) 0.1 mg IV Q5M PRN PRN Reason: Oversedation/Resp Depression Stop: 12/03/21 14:53 Ondansetron HCl (Ondansetron Inj 2 Mg/Ml 2 Ml Vial) 4 mg IV Q6H PRN PRN Reason: Nausea Stop: 11/30/21 05:31 Pantoprazole Sodium (Pantoprazole 40 Mg Tab) 40 mg PO DAILYBB [facility] Stop: 12/01/21 06:29 Last Admin: 11/08/21 06:09 Dose: 40 mg Documented by: Polyethylene Glycol (Polyethylene (Miralax) 17 Gm Pack) 17 gm PO DAILY PRN PRN Reason: Constipation Stop: 11/30/21 05:31 Raspberry (Raspberry Syrup 5 Ml Udp) 5 ml PO DAILY [facility] Stop: 11/10/21 08:59 Last Admin: 11/08/21 12:00 Dose: 5 ml Documented by: Saccharomyces Boulardii (Saccharomyces Boulardii 250 Mg Cap) 250 mg PO DAILY S Stop: 12/05/21 08:59 Last Admin: 11/08/21 11:50 Dose: 250 mg Documented by: Sertraline HCl (Sertraline Hcl 100 Mg Tablet) 100 mg PO QAM [facility] Stop: 11/30/21 08:59 Last Admin: 11/08/21 11:50 Dose: 100 mg Documented by: Tramadol HCl (Tramadol Hcl 50 Mg Tablet) 50 mg PO Q4H PRN PRN Reason: Pain & Pre PT Stop: 12/03/21 14:53 Last Admin: 11/08/21 12:09 Dose: 50 mg Documented by: Umeclidinium/Vilanterol (Umeclidinium/Vilanterol 62.5/25mcg 7 Puffs/Inhaler) 1 puffs INH DAILY [facility] Stop: 11/30/21 08:59 Last Admin: 11/08/21 11:50 Dose: 1 puffs Documented by: Vancomycin HCl (Vancomycin Hcl 125 Mg/2.5ml Soln) 125 mg PO DAILY [facility] Stop: 11/30/21 08:59 Last Admin: 11/08/21 12:00 Dose: 125 mg Documented by: Vitamin D (Cholecalciferol 1,000 Units 25 Mcg Tab) 2,000 units PO QAM [facility] Stop: 11/30/21 08:59 Last Admin: 11/08/21 11:49 Dose: 2,000 units Documented by: (1) Hip fracture, left Encounter type: initial encounter Fracture type: closed Qualified Code(s): S72.002A - Fracture of unspecified part of neck of left femur, initial encounter for closed fracture (2) COPD (chronic obstructive pulmonary disease) COPD type: unspecified COPD Qualified Code(s): J44.9 - Chronic obstructive pulmonary disease, unspecified (3) Bronchiectasis Bronchiectasis type: uncomplicated Qualified Code(s): J47.9 - Bronchiectasis, uncomplicated (4) Hypothyroid Hypothyroidism type: unspecified Qualified Code(s): E03.9 - Hypothyroidism, unspecified (5) Dementia Dementia type: Alzheimer's disease Alzheimer's disease onset: unspecified onset Dementia behavioral disturbance: without behavioral disturbance Qualified Code(s): G30.9 - Alzheimer's disease, unspecified; F02.80 - Dementia in other diseases classified elsewhere without behavioral disturbance (6) Depression Depression Type: major depressive disorder Major depression recurrence: unspecified whether recurrent Active/Remission status: remission status unspecified Qualified Code(s): F32.9 - Major depressive disorder, single episode, unspecified
[2021-11-08] MEDS: MAGNESIUM OXIDE 400 MG TAB PO SCH (16:57)
[2021-11-08] MEDS: CALCIUM CARBONATE 500 MG CHEWABLE TAB PO SCH (17:01)
[2021-11-08] MEDS: ATORVASTATIN 20 MG TAB PO SCH (22:00)
[2021-11-08] MEDS: LATANOPROST 0.005% OP SOLN 2.5 ML BTL OP SCH (22:02)
[2021-11-08] MEDS: clonazePAM 0.5 MG TAB PO SCH (22:13)
[2021-11-09] MEDS: ACETAMINOPHEN 325 MG TAB PO SCH ×3 (05:37→22:01)
[2021-11-09] MEDS: PANTOprazole 40 MG TAB PO SCH (05:37)
[2021-11-09] MEDS: LEVOTHYROXINE SODIUM 112 MCG TABLET PO SCH (05:37)
--- NOTE | 2021-11-09 08:49 | Hospitalist Progress Note ---
Date of Service November 09, 2021 Assessment & Plan (1) Non-ST elevation (NSTEMI) myocardial infarction: Plan: Finished heparin drip for 48 hours. TTE with moderate apical lateral wall motion abnormalities Metoplol 12.5mg BID -aspirin 81mg, started statin. No plavix per Cardiology (2) Hip fracture, left: Plan: s/p left hemiarthroplasty 11/03 -Pain control: Scheduled tylenol 650mg TID, started lidoderm patch and gabapentin 100mg BID 11/07, PRN tramadol for breakthrough pain (3) COPD (chronic obstructive pulmonary disease): Plan: History of chronic respiratory failure secondary to COPD and bronchiectasis on home oxygen No acute exacerbation of her symptoms (4) Bronchiectasis: (5) Hypothyroid: Plan: Continue supplement (6) Dementia: Plan: Dementia which has been progressing as per the outpatient neurological note Delirium recently with UTI and acute illness, delirium now resolved (7) Depression: Plan: No acute symptoms Plan: Pseudomonas UTI -s/p ceftriaxone now discontinued. Day 4/5 of Cefepime today DVT prophylaxis -aspirin SCD and TEDS per ortho CODE STATUS DNR/DNI Disposition -Patient is medically stable for discharge pending placement to [facility] (reportedly bed will be available on ) Admission and Anticipated Discharge Date Admission Date: October 31, 2021 Subjective Patient seen in follow-up of NSTEMI, hip fracture repair, UTI Currently patient is sitting up in bed, in no acute distress, on supplemental oxygen (at baseline) Denies any fevers, chills, chest pain, shortness of breath, abdominal pain, difficulty voiding, or burning with urination No nausea vomiting or diarrhea Review of Systems Review of Systems: All systems reviewed & are unremarkable except as noted in Subjective Physical Exam Physical Exam: Physical Exam: Elderly female, si tting up in bed, i n no acute distres s Respiratory: Breathing comforta elo on 2L NC, no w heezing/rhonchi/ra les Cardiovascular:J Regular rate and r hythm, no murmurs/ rubs Gastrointestinal ( Abdomen): soft, non tender Musculoskeletal: No edema, no cyano sis Neurologic: awake, alert, spee ch fluent, spontan eously moving extr emities Results & Data Results & Data ([facility]) Vital Signs (Past 12 Hours) Vital Signs Temp Pulse Resp BP Pulse Ox 11/09/21 08:00 37.1 C 91 H 18 100/54 L 95 11/08/21 22:00 37.8 C H 94 H 20 165/75 H 96 Medications Administered Current Inpatient Medications Acetaminophen (Acetaminophen 325 Mg Tab) 650 mg PO Q8 [facility] Stop: 12/02/21 13:59 Last Admin: 11/09/21 05:37 Dose: 650 mg Documented by: Albuterol (Albuterol 0.083% Nebu Soln 3 Ml Vial) 2.5 mg INH QID PRN; Protocol PRN Reason: Shortness Of Breath Or Wheezing Stop: 11/30/21 08:05 Last Admin: 11/06/21 00:23 Dose: 2.5 mg Documented by: Aspirin (Aspirin 81 Mg Ectab) 81 mg PO QAM [facility] Stop: 12/06/21 08:59 Last Admin: 11/08/21 11:48 Dose: 81 mg Documented by: Atorvastatin Calcium (Atorvastatin 20 Mg Tab) 20 mg PO HS [facility] Stop: 12/05/21 20:59 Last Admin: 11/08/21 22:00 Dose: 20 mg Documented by: Azelastine HCl (Azelastine Hcl 0.1% Nasal 200 Sprays/27,400 Mcg Btl) 2 sprays NA BIDM [facility] Stop: 11/30/21 16:59 Last Admin: 11/08/21 16:58 Dose: 2 sprays Documented by: Bisacodyl (Bisacodyl 10 Mg Supp) 10 mg NE DAILY PRN PRN Reason: Constipation Stop: 12/03/21 14:53 Calcium Carbonate (Calcium Carbonate 500 Mg Chewable Tab) 500 mg PO QDD [facility] Stop: 11/30/21 16:29 Last Admin: 11/08/21 17:01 Dose: 500 mg Documented by: Clonazepam (Clonazepam 0.5 Mg Tab) 0.5 mg PO HS [facility] Stop: 11/30/21 20:59 Last Admin: 11/08/21 22:13 Dose: 0.5 mg Documented by: Docusate Sodium (Docusate Sodium 100 Mg Cap) 100 mg PO BID [facility] Stop: 12/03/21 20:59 Last Admin: 11/08/21 22:11 Dose: 100 mg Documented by: Donepezil HCl (Donepezil Hcl 5 Mg Tab) 5 mg PO DAILY [facility] Stop: 11/30/21 08:59 Last Admin: 11/08/21 11:49 Dose: 5 mg Documented by: Famotidine (Famotidine 20 Mg Tab) 20 mg PO BID [facility] Stop: 11/30/21 08:59 Last Admin: 11/08/21 22:01 Dose: 20 mg Documented by: Folic Acid (Folic Acid 1 Mg Tab) 1 mg PO DAILY [facility] Stop: 11/30/21 08:59 Last Admin: 11/08/21 11:50 Dose: 1 mg Documented by: Gabapentin (Gabapentin 100 Mg Cap) 100 mg PO BID [facility] Stop: 12/07/21 20:59 Last Admin: 11/08/21 22:02 Dose: 100 mg Documented by: Latanoprost (Latanoprost 0.005% Op Soln 2.5 Ml Btl) 1 drops OP PM [facility] Stop: 11/30/21 20:59 Last Admin: 11/08/21 22:02 Dose: 1 drops Documented by: Levothyroxine Sodium (Levothyroxine Sodium 112 Mcg Tablet) 112 mcg PO DAILYBB [facility] Stop: 11/30/21 08:59 Last Admin: 11/09/21 05:37 Dose: 112 mcg Documented by: Lidocaine (Lidocaine 5% 1 Patch) 1 patch TD QAM [facility] Stop: 12/07/21 16:44 Last Admin: 11/08/21 11:50 Dose: 1 patch Documented by: Magnesium Hydroxide (Magnesium Hydroxide Susp 30 Ml Udc) 30 ml PO Q6H PRN PRN Reason: Constipation Stop: 12/03/21 14:53 Magnesium Oxide (Magnesium Oxide 400 Mg Tab) 400 mg PO QDD [facility] Stop: 11/30/21 16:29 Last Admin: 11/08/21 16:57 Dose: 400 mg Documented by: Metoprolol Tartrate (Metoprolol Tartrate 25 Mg Tab) 25 mg PO BID [facility] Stop: 12/04/21 20:59 Last Admin: 11/08/21 22:17 Dose: 25 mg Documented by: Miscellaneous (Remove Lidoderm Patch) 1 ea N/A DAILY@2100 [facility] Stop: 12/07/21 22:59 Last Admin: 11/08/21 22:04 Dose: 1 ea Documented by: Multivitamins (Multivitamin Tab) 1 tab PO QAM [facility] Stop: 12/04/21 08:59 Last Admin: 11/08/21 11:50 Dose: 1 tab Documented by: Naloxone HCl (Naloxone Hcl 0.4 Mg/1 Ml Vial/Carp) 0.1 mg IV Q5M PRN PRN Reason: Oversedation/Resp Depression Stop: 12/03/21 14:53 Ondansetron HCl (Ondansetron Inj 2 Mg/Ml 2 Ml Vial) 4 mg IV Q6H PRN PRN Reason: Nausea Stop: 11/30/21 05:31 Pantoprazole Sodium (Pantoprazole 40 Mg Tab) 40 mg PO DAILYBB [facility] Stop: 12/01/21 06:29 Last Admin: 11/09/21 05:37 Dose: 40 mg Documented by: Polyethylene Glycol (Polyethylene (Miralax) 17 Gm Pack) 17 gm PO DAILY PRN PRN Reason: Constipation Stop: 11/30/21 05:31 Raspberry (Raspberry Syrup 5 Ml Udp) 5 ml PO DAILY [facility] Stop: 11/10/21 08:59 Last Admin: 11/08/21 12:00 Dose: 5 ml Documented by: Saccharomyces Boulardii (Saccharomyces Boulardii 250 Mg Cap) 250 mg PO DAILY [facility] Stop: 12/05/21 08:59 Last Admin: 11/08/21 11:50 Dose: 250 mg Documented by: Sertraline HCl (Sertraline Hcl 100 Mg Tablet) 100 mg PO QAM [facility] Stop: 11/30/21 08:59 Last Admin: 11/08/21 11:50 Dose: 100 mg Documented by: Tramadol HCl (Tramadol Hcl 50 Mg Tablet) 50 mg PO Q4H PRN PRN Reason: Pain & Pre PT Stop: 12/03/21 14:53 Last Admin: 11/08/21 22:12 Dose: 50 mg Documented by: Umeclidinium/Vilanterol (Umeclidinium/Vilanterol 62.5/25mcg 7 Puffs/Inhaler) 1 puffs INH DAILY [facility] Stop: 11/30/21 08:59 Last Admin: 11/08/21 11:50 Dose: 1 puffs Documented by: Vancomycin HCl (Vancomycin Hcl 125 Mg/2.5ml Soln) 125 mg PO DAILY [facility] Stop: 11/30/21 08:59 Last Admin: 11/08/21 12:00 Dose: 125 mg Documented by: Vitamin D (Cholecalciferol 1,000 Units 25 Mcg Tab) 2,000 units PO QAM [facility] Stop: 11/30/21 08:59 Last Admin: 11/08/21 11:49 Dose: 2,000 units Documented by: (1) Dementia Alzheimer's disease onset: unspecified onset Dementia behavioral disturbance: without behavioral disturbance Dementia type: Alzheimer's disease Qualified Code(s): G30.9 - Alzheimer's disease, unspecified; F02.80 - Dementia in other diseases classified elsewhere without behavioral disturbance (2) Depression Active/Remission status: remission status unspecified Depression Type: major depressive disorder Major depression recurrence: unspecified whether recurrent Qualified Code(s): F32.9 - Major depressive disorder, single episode, unspecified (3) Hypothyroid Hypothyroidism type: unspecified Qualified Code(s): E03.9 - Hypothyroidism, unspecified (4) COPD (chronic obstructive pulmonary disease) COPD type: unspecified COPD Qualified Code(s): J44.9 - Chronic obstructive pulmonary disease, unspecified (5) Bronchiectasis Bronchiectasis type: uncomplicated Qualified Code(s): J47.9 - Bronchiectasis, uncomplicated (6) Hip fracture, left Encounter type: initial encounter Fracture type: closed Qualified Code(s): S72.002A - Fracture of unspecified part of neck of left femur, initial encounter for closed fracture
[2021-11-09] MEDS: UMECLIDINIUM/VILANTEROL 62.5/25MCG 7 PUFFS/INHALER INH SCH (09:43)
[2021-11-09] MEDS: AZELASTINE HCL 0.1% NASAL 200 SPRAYS/27,400 MCG BTL SCH ×2 (09:44→17:05)
[2021-11-09] MEDS: DOCUSATE SODIUM 100 MG CAP PO SCH ×2 (09:46→20:25)
[2021-11-09] MEDS: GABAPENTIN 100 MG CAP PO SCH ×2 (09:48→20:25)
[2021-11-09] MEDS: FAMOTIDINE 20 MG TAB PO SCH ×2 (09:48→20:25)
[2021-11-09] MEDS: CHOLECALCIFEROL 1,000 UNITS 25 MCG TAB PO SCH (09:48)
[2021-11-09] MEDS: METOPROLOL TARTRATE 25 MG TAB PO SCH ×2 (09:48→20:25)
[2021-11-09] MEDS: ASPIRIN 81 MG ECTAB PO SCH (09:48)
[2021-11-09] MEDS: FOLIC ACID 1 MG TAB PO SCH (09:48)
[2021-11-09] MEDS: LIDOCAINE 5% 1 PATCH TD SCH (09:48)
[2021-11-09] MEDS: DONEPEZIL HCL 5 MG TAB PO SCH (09:48)
[2021-11-09] MEDS: SERTRALINE HCL 100 MG TABLET PO SCH (09:50)
[2021-11-09] MEDS: SACCHAROMYCES BOULARDII 250 MG CAP PO SCH (09:50)
[2021-11-09] MEDS: MULTIVITAMIN TAB PO SCH (09:50)
[2021-11-09] MEDS: VANCOMYCIN HCL 125 MG/2.5ML SOLN PO SCH (10:00)
[2021-11-09] MEDS: RASPBERRY SYRUP 5 ML UDP PO SCH (10:00)
[2021-11-09] MEDS: ADVANCED PROBIOTIC 1250 MG CAPSULE PO SCH (10:00)
[2021-11-09] MEDS: CEFEPIME 2,000 MG in SYRINGE 0 ML IV SCH ×2 (15:03→20:25)
[2021-11-09] MEDS: MAGNESIUM OXIDE 400 MG TAB PO SCH (17:05)
[2021-11-09] MEDS: traMADol HCL 50 MG TABLET PO PRN (17:05)
[2021-11-09] MEDS: CALCIUM CARBONATE 500 MG CHEWABLE TAB PO SCH (17:05)
[2021-11-09] MEDS: ATORVASTATIN 20 MG TAB PO SCH (20:25)
[2021-11-09] MEDS: clonazePAM 0.5 MG TAB PO SCH (20:25)
[2021-11-09] MEDS: LATANOPROST 0.005% OP SOLN 2.5 ML BTL OP SCH (20:26)
[2021-11-10] MEDS: ACETAMINOPHEN 325 MG TAB PO SCH ×3 (05:41→22:52)
[2021-11-10] MEDS: LEVOTHYROXINE SODIUM 112 MCG TABLET PO SCH (05:41)
[2021-11-10] MEDS: PANTOprazole 40 MG TAB PO SCH (05:41)
[2021-11-10] MEDS: AZELASTINE HCL 0.1% NASAL 200 SPRAYS/27,400 MCG BTL SCH ×2 (08:05→17:11)
[2021-11-10] MEDS: DOCUSATE SODIUM 100 MG CAP PO SCH ×2 (08:06→20:43)
[2021-11-10] MEDS: CHOLECALCIFEROL 1,000 UNITS 25 MCG TAB PO SCH (08:07)
[2021-11-10] MEDS: DONEPEZIL HCL 5 MG TAB PO SCH (08:07)
[2021-11-10] MEDS: ASPIRIN 81 MG ECTAB PO SCH (08:07)
[2021-11-10] MEDS: FAMOTIDINE 20 MG TAB PO SCH ×2 (08:08→20:36)
[2021-11-10] MEDS: METOPROLOL TARTRATE 25 MG TAB PO SCH ×2 (08:08→20:37)
[2021-11-10] MEDS: GABAPENTIN 100 MG CAP PO SCH ×2 (08:08→20:35)
[2021-11-10] MEDS: FOLIC ACID 1 MG TAB PO SCH (08:08)
[2021-11-10] MEDS: MULTIVITAMIN TAB PO SCH (08:08)
[2021-11-10] MEDS: LIDOCAINE 5% 1 PATCH TD SCH (08:08)
[2021-11-10] MEDS: SERTRALINE HCL 100 MG TABLET PO SCH (08:08)
[2021-11-10] MEDS: SACCHAROMYCES BOULARDII 250 MG CAP PO SCH (08:08)
[2021-11-10] MEDS: ADVANCED PROBIOTIC 1250 MG CAPSULE PO SCH (08:08)
--- NOTE | 2021-11-10 09:09 | Hospitalist Progress Note ---
Date of Service November 10, 2021 Assessment & Plan (1) Non-ST elevation (NSTEMI) myocardial infarction: Plan: Finished heparin drip for 48 hours. TTE with moderate apical lateral wall motion abnormalities Metoplol 12.5mg BID -aspirin 81mg, started statin. No plavix per Cardiology (2) Hip fracture, left: Plan: s/p left hemiarthroplasty 11/03 -Pain control: Scheduled tylenol 650mg TID, started lidoderm patch and gabapentin 100mg BID 11/07, PRN tramadol for breakthrough pain (3) COPD (chronic obstructive pulmonary disease): Plan: History of chronic respiratory failure secondary to COPD and bronchiectasis on home oxygen No acute exacerbation of her symptoms (4) Bronchiectasis: (5) Hypothyroid: Plan: Continue supplement (6) Dementia: Plan: Dementia which has been progressing as per the outpatient neurological note Delirium recently with UTI and acute illness, delirium now resolved (7) Depression: Plan: No acute symptoms Plan: Pseudomonas UTI -s/p ceftriaxone now discontinued. Day 5 of Cefepime today DVT prophylaxis -aspirin SCD and TEDS per ortho CODE STATUS DNR/DNI Disposition -Patient is medically stable for discharge, CM involved Admission and Anticipated Discharge Date Admission Date: October 31, 2021 Subjective Patient seen in follow-up of NSTEMI, hip fracture repair, UTI Currently patient is sitting up in bed, in no acute distress, on supplemental oxygen (at baseline) Denies any fevers, chills, chest pain, shortness of breath, abdominal pain, difficulty voiding, or burning with urination No nausea vomiting or diarrhea Review of Systems Review of Systems: All systems reviewed & are unremarkable except as noted in Subjective Physical Exam Physical Exam: Physical Exam: Elderly female, si tting up in bed, i n no acute distres s Respiratory: Breathing comforta elo on 2L NC, no w heezing/rhonchi/ra les Cardiovascular:J Regular rate and r hythm, no murmurs/ rubs Gastrointestinal ( Abdomen): soft, non tender Musculoskeletal: No edema, no cyano sis Neurologic: awake, alert, spee ch fluent, spontan eously moving extr emities Results & Data Results & Data ([facility]) Vital Signs (Past 12 Hours) Vital Signs Temp Pulse Resp BP Pulse Ox 11/10/21 07:51 36.7 C 83 20 134/58 L 100 11/09/21 23:00 37.2 C 80 20 130/61 97 Medications Administered Current Inpatient Medications Acetaminophen (Acetaminophen 325 Mg Tab) 650 mg PO Q8 [facility] Stop: 12/02/21 13:59 Last Admin: 11/10/21 05:41 Dose: 650 mg Documented by: Albuterol (Albuterol 0.083% Nebu Soln 3 Ml Vial) 2.5 mg INH QID PRN; Protocol PRN Reason: Shortness Of Breath Or Wheezing Stop: 11/30/21 08:05 Last Admin: 11/06/21 00:23 Dose: 2.5 mg Documented by: Aspirin (Aspirin 81 Mg Ectab) 81 mg PO QAM [facility] Stop: 12/06/21 08:59 Last Admin: 11/10/21 08:07 Dose: 81 mg Documented by: Atorvastatin Calcium (Atorvastatin 20 Mg Tab) 20 mg PO [facility] Stop: 12/05/21 20:59 Last Admin: 11/09/21 20:25 Dose: 20 mg Documented by: Azelastine HCl (Azelastine Hcl 0.1% Nasal 200 Sprays/27,400 Mcg Btl) 2 sprays NA BIDM [facility] Stop: 11/30/21 16:59 Last Admin: 11/10/21 08:05 Dose: 2 sprays Documented by: Bisacodyl (Bisacodyl 10 Mg Supp) 10 mg [place] DAILY PRN PRN Reason: Constipation Stop: 12/03/21 14:53 Calcium Carbonate (Calcium Carbonate 500 Mg Chewable Tab) 500 mg PO QDD [facility] Stop: 11/30/21 16:29 Last Admin: 11/09/21 17:05 Dose: 500 mg Documented by: Clonazepam (Clonazepam 0.5 Mg Tab) 0.5 mg PO [facility] Stop: 11/30/21 20:59 Last Admin: 11/09/21 20:25 Dose: 0.5 mg Documented by: Docusate Sodium (Docusate Sodium 100 Mg Cap) 100 mg PO BID [facility] Stop: 12/03/21 20:59 Last Admin: 11/10/21 08:06 Dose: Not Given Documented by: Donepezil HCl (Donepezil Hcl 5 Mg Tab) 5 mg PO DAILY [facility] Stop: 11/30/21 08:59 Last Admin: 11/10/21 08:07 Dose: 5 mg Documented by: Famotidine (Famotidine 20 Mg Tab) 20 mg PO BID [facility] Stop: 11/30/21 08:59 Last Admin: 11/10/21 08:08 Dose: 20 mg Documented by: Folic Acid (Folic Acid 1 Mg Tab) 1 mg PO DAILY [facility] Stop: 11/30/21 08:59 Last Admin: 11/10/21 08:08 Dose: 1 mg Documented by: Gabapentin (Gabapentin 100 Mg Cap) 100 mg PO BID [facility] Stop: 12/07/21 20:59 Last Admin: 11/10/21 08:08 Dose: 100 mg Documented by: Cefepime HCl 2,000 mg/ Syringe 20 mls @ 5 mls/min IV Q12H [facility]; Protocol Stop: 11/11/21 08:00 Last Admin: 11/09/21 20:25 Dose: 5 mls/min Documented by: Lactobacillus Acidophilus (Advanced Probiotic 1250 Mg Capsule) 2 cap PO DAILY [facility] Stop: 12/09/21 08:59 Last Admin: 11/10/21 08:08 Dose: 2 cap Documented by: Latanoprost (Latanoprost 0.005% Op Soln 2.5 Ml Btl) 1 drops OP PM [facility] Stop: 11/30/21 20:59 Last Admin: 11/09/21 20:26 Dose: 1 drops Documented by: Levothyroxine Sodium (Levothyroxine Sodium 112 Mcg Tablet) 112 mcg PO DAILYBB [facility] Stop: 11/30/21 08:59 Last Admin: 11/10/21 05:41 Dose: 112 mcg Documented by: Lidocaine (Lidocaine 5% 1 Patch) 1 patch TD QAM [facility] Stop: 12/07/21 16:44 Last Admin: 11/10/21 08:08 Dose: 1 patch Documented by: Magnesium Hydroxide (Magnesium Hydroxide Susp 30 Ml Udc) 30 ml PO Q6H PRN PRN Reason: Constipation Stop: 12/03/21 14:53 Magnesium Oxide (Magnesium Oxide 400 Mg Tab) 400 mg PO QDD [facility] Stop: 11/30/21 16:29 Last Admin: 11/09/21 17:05 Dose: 400 mg Documented by: Metoprolol Tartrate (Metoprolol Tartrate 25 Mg Tab) 25 mg PO BID [facility] Stop: 12/04/21 20:59 Last Admin: 11/10/21 08:08 Dose: 25 mg Documented by: Miscellaneous (Remove Lidoderm Patch) 1 ea N/A DAILY@2100 [facility] Stop: 12/07/21 22:59 Last Admin: 11/09/21 20:26 Dose: 1 ea Documented by: Multivitamins (Multivitamin Tab) 1 tab PO QAM [facility] Stop: 12/04/21 08:59 Last Admin: 11/10/21 08:08 Dose: 1 tab Documented by: Naloxone HCl (Naloxone Hcl 0.4 Mg/1 Ml Vial/Carp) 0.1 mg IV Q5M PRN PRN Reason: Oversedation/Resp Depression Stop: 12/03/21 14:53 Ondansetron HCl (Ondansetron Inj 2 Mg/Ml 2 Ml Vial) 4 mg IV Q6H PRN PRN Reason: Nausea Stop: 11/30/21 05:31 Pantoprazole Sodium (Pantoprazole 40 Mg Tab) 40 mg PO DAILYBB [facility] Stop: 12/01/21 06:29 Last Admin: 11/10/21 05:41 Dose: 40 mg Documented by: Polyethylene Glycol (Polyethylene (Miralax) 17 Gm Pack) 17 gm PO DAILY PRN PRN Reason: Constipation Stop: 11/30/21 05:31 Saccharomyces Boulardii (Saccharomyces Boulardii 250 Mg Cap) 250 mg PO DAILY [facility] Stop: 12/05/21 08:59 Last Admin: 11/10/21 08:08 Dose: 250 mg Documented by: Sertraline HCl (Sertraline Hcl 100 Mg Tablet) 100 mg PO QAM [facility] Stop: 11/30/21 08:59 Last Admin: 11/10/21 08:08 Dose: 100 mg Documented by: Tramadol HCl (Tramadol Hcl 50 Mg Tablet) 50 mg PO Q4H PRN PRN Reason: Pain & Pre PT Stop: 12/03/21 14:53 Last Admin: 11/09/21 17:05 Dose: 50 mg Documented by: Umeclidinium/Vilanterol (Umeclidinium/Vilanterol 62.5/25mcg 7 Puffs/Inhaler) 1 puffs INH DAILY [facility] Stop: 11/30/21 08:59 Last Admin: 11/09/21 09:43 Dose: 1 puffs Documented by: Vancomycin HCl (Vancomycin Hcl 125 Mg/2.5ml Soln) 125 mg PO DAILY [facility] Stop: 11/30/21 08:59 Last Admin: 11/09/21 10:00 Dose: 125 mg Documented by: Vitamin D (Cholecalciferol 1,000 Units 25 Mcg Tab) 2,000 units PO QAM [facility] Stop: 11/30/21 08:59 Last Admin: 11/10/21 08:07 Dose: 2,000 units Documented by: (1) Dementia Alzheimer's disease onset: unspecified onset Dementia behavioral disturbance: without behavioral disturbance Dementia type: Alzheimer's disease Qualified Code(s): G30.9 - Alzheimer's disease, unspecified; F02.80 - Dementia in other diseases classified elsewhere without behavioral disturbance (2) Depression Active/Remission status: remission status unspecified Depression Type: major depressive disorder Major depression recurrence: unspecified whether recurrent Qualified Code(s): F32.9 - Major depressive disorder, single episode, unspecified (3) Hypothyroid Hypothyroidism type: unspecified Qualified Code(s): E03.9 - Hypothyroidism, unspecified (4) COPD (chronic obstructive pulmonary disease) COPD type: unspecified COPD Qualified Code(s): J44.9 - Chronic obstructive pulmonary disease, unspecified (5) Bronchiectasis Bronchiectasis type: uncomplicated Qualified Code(s): J47.9 - Bronchiectasis, uncomplicated (6) Hip fracture, left Encounter type: initial encounter Fracture type: closed Qualified Code(s): S72.002A - Fracture of unspecified part of neck of left femur, initial encounter for closed fracture
[2021-11-10] MEDS: UMECLIDINIUM/VILANTEROL 62.5/25MCG 7 PUFFS/INHALER INH SCH (10:26)
[2021-11-10] MEDS: CEFEPIME 2,000 MG in SYRINGE 0 ML IV SCH ×2 (10:26→20:35)
[2021-11-10] MEDS: VANCOMYCIN HCL 125 MG/2.5ML SOLN PO SCH (13:30)
[2021-11-10] MEDS: RASPBERRY SYRUP 5 ML UDP PO SCH (13:30)
[2021-11-10] MEDS: MAGNESIUM OXIDE 400 MG TAB PO SCH (17:11)
[2021-11-10] MEDS: CALCIUM CARBONATE 500 MG CHEWABLE TAB PO SCH (17:12)
[2021-11-10] MEDS: clonazePAM 0.5 MG TAB PO SCH (20:34)
[2021-11-10] MEDS: ATORVASTATIN 20 MG TAB PO SCH (20:36)
[2021-11-10] MEDS: LATANOPROST 0.005% OP SOLN 2.5 ML BTL OP SCH (20:41)
[2021-11-10] MEDS: traMADol HCL 50 MG TABLET PO PRN (20:49)
[2021-11-11] MEDS: LEVOTHYROXINE SODIUM 112 MCG TABLET PO SCH (05:54)
[2021-11-11] MEDS: ACETAMINOPHEN 325 MG TAB PO SCH ×3 (05:54→21:05)
[2021-11-11] MEDS: PANTOprazole 40 MG TAB PO SCH (05:54)
[2021-11-11] MEDS: METOPROLOL TARTRATE 25 MG TAB PO SCH ×2 (07:59→20:56)
[2021-11-11] MEDS: FOLIC ACID 1 MG TAB PO SCH (08:00)
[2021-11-11] MEDS: ASPIRIN 81 MG ECTAB PO SCH (08:00)
[2021-11-11] MEDS: MULTIVITAMIN TAB PO SCH (08:00)
[2021-11-11] MEDS: UMECLIDINIUM/VILANTEROL 62.5/25MCG 7 PUFFS/INHALER INH SCH (08:00)
[2021-11-11] MEDS: ADVANCED PROBIOTIC 1250 MG CAPSULE PO SCH (08:00)
[2021-11-11] MEDS: RASPBERRY SYRUP 5 ML UDP PO SCH (08:00)
[2021-11-11] MEDS: DONEPEZIL HCL 5 MG TAB PO SCH (08:00)
[2021-11-11] MEDS: SERTRALINE HCL 100 MG TABLET PO SCH (08:00)
[2021-11-11] MEDS: VANCOMYCIN HCL 125 MG/2.5ML SOLN PO SCH (08:00)
[2021-11-11] MEDS: GABAPENTIN 100 MG CAP PO SCH ×2 (08:00→20:54)
[2021-11-11] MEDS: FAMOTIDINE 20 MG TAB PO SCH ×2 (08:00→20:54)
[2021-11-11] MEDS: DOCUSATE SODIUM 100 MG CAP PO SCH ×2 (08:00→21:05)
[2021-11-11] MEDS: CHOLECALCIFEROL 1,000 UNITS 25 MCG TAB PO SCH (08:00)
[2021-11-11] MEDS: AZELASTINE HCL 0.1% NASAL 200 SPRAYS/27,400 MCG BTL SCH ×2 (08:00→15:55)
[2021-11-11] MEDS: SACCHAROMYCES BOULARDII 250 MG CAP PO SCH (08:00)
[2021-11-11] MEDS: LIDOCAINE 5% 1 PATCH TD SCH (09:56)
[2021-11-11] MEDS: traMADol HCL 50 MG TABLET PO PRN (13:41)
--- NOTE | 2021-11-11 14:56 | Hospitalist Progress Note ---
Date of Service November 11, 2021 Assessment & Plan (1) Non-ST elevation (NSTEMI) myocardial infarction: Plan: Finished heparin drip for 48 hours. TTE with moderate apical lateral wall motion abnormalities Metoplol 12.5mg BID -aspirin 81mg, started statin. No plavix per Cardiology (2) Hip fracture, left: Plan: s/p left hemiarthroplasty 11/03 -Pain control: Scheduled tylenol 650mg TID, started lidoderm patch and gabapentin 100mg BID 11/07, PRN tramadol for breakthrough pain (3) COPD (chronic obstructive pulmonary disease): Plan: History of chronic respiratory failure secondary to COPD and bronchiectasis on home oxygen No acute exacerbation of her symptoms (4) Bronchiectasis: (5) Hypothyroid: Plan: Continue supplement (6) Dementia: Plan: Dementia which has been progressing as per the outpatient neurological note Delirium recently with UTI and acute illness, delirium now resolved (7) Depression: Plan: No acute symptoms Plan: Pseudomonas UTI -s/p ceftriaxone now discontinued. Finished 5 day course of Cefepime on 11/10/21 DVT prophylaxis -aspirin SCD and TEDS per ortho CODE STATUS DNR/DNI Disposition -Patient is medically stable for discharge, CM involved Admission and Anticipated Discharge Date Admission Date: October 31, 2021 Subjective Patient seen in follow-up of NSTEMI, hip fracture repair, UTI Currently patient is sitting up in bed, in no acute distress, on supplemental oxygen (at baseline) Denies any fevers, chills, chest pain, shortness of breath, abdominal pain, difficulty voiding, or burning with urination No nausea vomiting or diarrhea Patient's son present at the bedside and updated Review of Systems Review of Systems: All systems reviewed & are unremarkable except as noted in Subjective Physical Exam Physical Exam: Physical Exam: Elderly female, si tting up in bed, i n no acute distres s Respiratory: Breathing comforta elo on 2L NC, no w heezing/rhonchi/ra les Cardiovascular:J Regular rate and r hythm, no murmurs/ rubs Gastrointestinal ( Abdomen): soft, non tender Musculoskeletal: No edema, no cyano sis Neurologic: awake, alert, spee ch fluent, spontan eously moving extr emities Results & Data Results & Data ([facility]) Vital Signs (Past 12 Hours) Vital Signs Temp Pulse Resp BP Pulse Ox 11/11/21 08:02 36.6 C 93 H 16 120/53 L 97 Medications Administered Current Inpatient Medications Acetaminophen (Acetaminophen 325 Mg Tab) 650 mg PO Q8 [facility] Stop: 12/02/21 13:59 Last Admin: 11/11/21 13:41 Dose: 650 mg Documented by: Albuterol (Albuterol 0.083% Nebu Soln 3 Ml Vial) 2.5 mg INH QID PRN; Protocol PRN Reason: Shortness Of Breath Or Wheezing Stop: 11/30/21 08:05 Last Admin: 11/06/21 00:23 Dose: 2.5 mg Documented by: Aspirin (Aspirin 81 Mg Ectab) 81 mg PO QAM [facility] Stop: 12/06/21 08:59 Last Admin: 11/11/21 08:00 Dose: 81 mg Documented by: Atorvastatin Calcium (Atorvastatin 20 Mg Tab) 20 mg PO [facility] Stop: 12/05/21 20:59 Last Admin: 11/10/21 20:36 Dose: 20 mg Documented by: Azelastine HCl (Azelastine Hcl 0.1% Nasal 200 Sprays/27,400 Mcg Btl) 2 sprays NA BIDM [facility] Stop: 11/30/21 16:59 Last Admin: 11/11/21 08:00 Dose: 2 sprays Documented by: Bisacodyl (Bisacodyl 10 Mg Supp) 10 mg [place] DAILY PRN PRN Reason: Constipation Stop: 12/03/21 14:53 Calcium Carbonate (Calcium Carbonate 500 Mg Chewable Tab) 500 mg PO QDD [facility] Stop: 11/30/21 16:29 Last Admin: 11/10/21 17:12 Dose: 500 mg Documented by: Clonazepam (Clonazepam 0.5 Mg Tab) 0.5 mg PO [facility] Stop: 11/30/21 20:59 Last Admin: 11/10/21 20:34 Dose: 0.5 mg Documented by: Docusate Sodium (Docusate Sodium 100 Mg Cap) 100 mg PO BID [facility] Stop: 12/03/21 20:59 Last Admin: 11/11/21 08:00 Dose: 100 mg Documented by: Donepezil HCl (Donepezil Hcl 5 Mg Tab) 5 mg PO DAILY [facility] Stop: 11/30/21 08:59 Last Admin: 11/11/21 08:00 Dose: 5 mg Documented by: Famotidine (Famotidine 20 Mg Tab) 20 mg PO BID [facility] Stop: 11/30/21 08:59 Last Admin: 11/11/21 08:00 Dose: 20 mg Documented by: Folic Acid (Folic Acid 1 Mg Tab) 1 mg PO DAILY [facility] Stop: 11/30/21 08:59 Last Admin: 11/11/21 08:00 Dose: 1 mg Documented by: Gabapentin (Gabapentin 100 Mg Cap) 100 mg PO BID [facility] Stop: 12/07/21 20:59 Last Admin: 11/11/21 08:00 Dose: 100 mg Documented by: Lactobacillus Acidophilus (Advanced Probiotic 1250 Mg Capsule) 2 cap PO DAILY [facility] Stop: 12/09/21 08:59 Last Admin: 11/11/21 08:00 Dose: 2 cap Documented by: Latanoprost (Latanoprost 0.005% Op Soln 2.5 Ml Btl) 1 drops OP PM [facility] Stop: 11/30/21 20:59 Last Admin: 11/10/21 20:41 Dose: 1 drops Documented by: Levothyroxine Sodium (Levothyroxine Sodium 112 Mcg Tablet) 112 mcg PO DAILYBB [facility] Stop: 11/30/21 08:59 Last Admin: 11/11/21 05:54 Dose: 112 mcg Documented by: Lidocaine (Lidocaine 5% 1 Patch) 1 patch TD QAM [facility] Stop: 12/07/21 16:44 Last Admin: 11/11/21 09:56 Dose: Not Given Documented by: Magnesium Hydroxide (Magnesium Hydroxide Susp 30 Ml Udc) 30 ml PO Q6H PRN PRN Reason: Constipation Stop: 12/03/21 14:53 Magnesium Oxide (Magnesium Oxide 400 Mg Tab) 400 mg PO QDD [facility] Stop: 11/30/21 16:29 Last Admin: 11/10/21 17:11 Dose: 400 mg Documented by: Metoprolol Tartrate (Metoprolol Tartrate 25 Mg Tab) 25 mg PO BID [facility] Stop: 12/04/21 20:59 Last Admin: 11/11/21 07:59 Dose: 25 mg Documented by: Miscellaneous (Remove Lidoderm Patch) 1 ea N/A DAILY@2100 [facility] Stop: 12/07/21 22:59 Last Admin: 11/10/21 20:41 Dose: 1 ea Documented by: Multivitamins (Multivitamin Tab) 1 tab PO QAM [facility] Stop: 12/04/21 08:59 Last Admin: 11/11/21 08:00 Dose: 1 tab Documented by: Naloxone HCl (Naloxone Hcl 0.4 Mg/1 Ml Vial/Carp) 0.1 mg IV Q5M PRN PRN Reason: Oversedation/Resp Depression Stop: 12/03/21 14:53 Ondansetron HCl (Ondansetron Inj 2 Mg/Ml 2 Ml Vial) 4 mg IV Q6H PRN PRN Reason: Nausea Stop: 11/30/21 05:31 Pantoprazole Sodium (Pantoprazole 40 Mg Tab) 40 mg PO DAILYBB [facility] Stop: 12/01/21 06:29 Last Admin: 11/11/21 05:54 Dose: 40 mg Documented by: Polyethylene Glycol (Polyethylene (Miralax) 17 Gm Pack) 17 gm PO DAILY PRN PRN Reason: Constipation Stop: 11/30/21 05:31 Raspberry (Raspberry Syrup 5 Ml Udp) 5 ml PO DAILY [facility] Stop: 11/30/21 08:59 Last Admin: 11/11/21 08:00 Dose: 5 ml Documented by: Saccharomyces Boulardii (Saccharomyces Boulardii 250 Mg Cap) 250 mg PO DAILY [facility] Stop: 12/05/21 08:59 Last Admin: 11/11/21 08:00 Dose: 250 mg Documented by: Sertraline HCl (Sertraline Hcl 100 Mg Tablet) 100 mg PO QAM [facility] Stop: 11/30/21 08:59 Last Admin: 11/11/21 08:00 Dose: 100 mg Documented by: Tramadol HCl (Tramadol Hcl 50 Mg Tablet) 50 mg PO Q4H PRN PRN Reason: Pain & Pre PT Stop: 12/03/21 14:53 Last Admin: 11/11/21 13:41 Dose: 50 mg Documented by: Umeclidinium/Vilanterol (Umeclidinium/Vilanterol 62.5/25mcg 7 Puffs/Inhaler) 1 puffs INH DAILY [facility] Stop: 11/30/21 08:59 Last Admin: 11/11/21 08:00 Dose: 1 puffs Documented by: Vancomycin HCl (Vancomycin Hcl 125 Mg/2.5ml Soln) 125 mg PO DAILY [facility] Stop: 11/30/21 08:59 Last Admin: 11/11/21 08:00 Dose: 125 mg Documented by: Vitamin D (Cholecalciferol 1,000 Units 25 Mcg Tab) 2,000 units PO QAM [facility] Stop: 11/30/21 08:59 Last Admin: 11/11/21 08:00 Dose: 2,000 units Documented by: (1) Dementia Alzheimer's disease onset: unspecified onset Dementia behavioral disturbance: without behavioral disturbance Dementia type: Alzheimer's disease Qualified Code(s): G30.9 - Alzheimer's disease, unspecified; F02.80 - Dementia in other diseases classified elsewhere without behavioral disturbance (2) Depression Active/Remission status: remission status unspecified Depression Type: major depressive disorder Major depression recurrence: unspecified whether recurrent Qualified Code(s): F32.9 - Major depressive disorder, single episode, unspecified (3) Hypothyroid Hypothyroidism type: unspecified Qualified Code(s): E03.9 - Hypothyroidism, unspecified (4) COPD (chronic obstructive pulmonary disease) COPD type: unspecified COPD Qualified Code(s): J44.9 - Chronic obstructive pulmonary disease, unspecified (5) Bronchiectasis Bronchiectasis type: uncomplicated Qualified Code(s): J47.9 - Bronchiectasis, uncomplicated (6) Hip fracture, left Encounter type: initial encounter Fracture type: closed Qualified Code(s): S72.002A - Fracture of unspecified part of neck of left femur, initial encounter for closed fracture
[2021-11-11] MEDS: MAGNESIUM OXIDE 400 MG TAB PO SCH (15:55)
[2021-11-11] MEDS: CALCIUM CARBONATE 500 MG CHEWABLE TAB PO SCH (15:55)
[2021-11-11] MEDS: clonazePAM 0.5 MG TAB PO SCH (20:52)
[2021-11-11] MEDS: ATORVASTATIN 20 MG TAB PO SCH (20:53)
[2021-11-11] MEDS: LATANOPROST 0.005% OP SOLN 2.5 ML BTL OP SCH (20:55)
[2021-11-12] MEDS: PANTOprazole 40 MG TAB PO SCH (05:09)
[2021-11-12] MEDS: LEVOTHYROXINE SODIUM 112 MCG TABLET PO SCH (05:09)
[2021-11-12] MEDS: ACETAMINOPHEN 325 MG TAB PO SCH ×3 (05:09→20:46)
--- NOTE | 2021-11-12 08:09 | Hospitalist Progress Note ---
Date of Service November 12, 2021 Assessment & Plan (1) Non-ST elevation (NSTEMI) myocardial infarction: Plan: Finished heparin drip for 48 hours. TTE with moderate apical lateral wall motion abnormalities Metoplol 12.5mg BID -aspirin 81mg, started statin. No plavix per Cardiology (2) Hip fracture, left: Plan: s/p left hemiarthroplasty 11/03 -Pain control: Scheduled tylenol 650mg TID, started lidoderm patch and gabapentin 100mg BID 11/07, PRN tramadol for breakthrough pain (3) COPD (chronic obstructive pulmonary disease): Plan: History of chronic respiratory failure secondary to COPD and bronchiectasis on home oxygen No acute exacerbation of her symptoms (4) Bronchiectasis: (5) Hypothyroid: Plan: Continue supplement (6) Dementia: Plan: Dementia which has been progressing as per the outpatient neurological note Delirium recently with UTI and acute illness, delirium now resolved (7) Depression: Plan: No acute symptoms Plan: Pseudomonas UTI -s/p ceftriaxone now discontinued. Finished 5 day course of Cefepime on 11/10/21 DVT prophylaxis -aspirin SCD and TEDS per ortho CODE STATUS DNR/DNI Disposition -Patient is medically stable for discharge, CM involved Admission and Anticipated Discharge Date Admission Date: October 31, 2021 Subjective Patient seen in follow-up of NSTEMI, hip fracture repair, UTI Currently patient is sitting up in bed, in no acute distress, on supplemental oxygen (at baseline) Denies any fevers, chills, chest pain, shortness of breath, abdominal pain, difficulty voiding, or burning with urination No nausea vomiting or diarrhea Patient's son present at the bedside yesterday and updated Review of Systems Review of Systems: All systems reviewed & are unremarkable except as noted in Subjective Physical Exam Physical Exam: Physical Exam: Elderly female, si tting up in bed, i n no acute distres s Respiratory: Breathing comforta elo on 2L NC, no w heezing/rhonchi/ra les Cardiovascular:J Regular rate and r hythm, no murmurs/ rubs Gastrointestinal ( Abdomen): soft, non tender Musculoskeletal: No edema, no cyano sis Neurologic: awake, alert, spee ch fluent, spontan eously moving extr emities Results & Data Results & Data ([facility]) Vital Signs (Past 12 Hours) Vital Signs Temp Pulse Resp BP Pulse Ox 11/12/21 06:29 36.5 C 82 18 124/69 95 11/11/21 23:17 37.0 C 82 18 116/61 91 Medications Administered Current Inpatient Medications Acetaminophen (Acetaminophen 325 Mg Tab) 650 mg PO Q8 [facility] Stop: 12/02/21 13:59 Last Admin: 11/12/21 05:09 Dose: 650 mg Documented by: Albuterol (Albuterol 0.083% Nebu Soln 3 Ml Vial) 2.5 mg INH QID PRN; Protocol PRN Reason: Shortness Of Breath Or Wheezing Stop: 11/30/21 08:05 Last Admin: 11/06/21 00:23 Dose: 2.5 mg Documented by: Aspirin (Aspirin 81 Mg Ectab) 81 mg PO QAM [facility] Stop: 12/06/21 08:59 Last Admin: 11/11/21 08:00 Dose: 81 mg Documented by: Atorvastatin Calcium (Atorvastatin 20 Mg Tab) 20 mg PO HS [facility] Stop: 12/05/21 20:59 Last Admin: 11/11/21 20:53 Dose: 20 mg Documented by: Azelastine HCl (Azelastine Hcl 0.1% Nasal 200 Sprays/27,400 Mcg Btl) 2 sprays NA BIDM [facility] Stop: 11/30/21 16:59 Last Admin: 11/11/21 15:55 Dose: Not Given Documented by: Bisacodyl (Bisacodyl 10 Mg Supp) 10 mg [place] DAILY PRN PRN Reason: Constipation Stop: 12/03/21 14:53 Calcium Carbonate (Calcium Carbonate 500 Mg Chewable Tab) 500 mg PO QDD [facility] Stop: 11/30/21 16:29 Last Admin: 11/11/21 15:55 Dose: Not Given Documented by: Clonazepam (Clonazepam 0.5 Mg Tab) 0.5 mg PO HS [facility] Stop: 11/30/21 20:59 Last Admin: 11/11/21 20:52 Dose: 0.5 mg Documented by: Docusate Sodium (Docusate Sodium 100 Mg Cap) 100 mg PO BID [facility] Stop: 12/03/21 20:59 Last Admin: 11/11/21 21:05 Dose: 100 mg Documented by: Donepezil HCl (Donepezil Hcl 5 Mg Tab) 5 mg PO DAILY [facility] Stop: 11/30/21 08:59 Last Admin: 11/11/21 08:00 Dose: 5 mg Documented by: Famotidine (Famotidine 20 Mg Tab) 20 mg PO BID [facility] Stop: 11/30/21 08:59 Last Admin: 11/11/21 20:54 Dose: 20 mg Documented by: Folic Acid (Folic Acid 1 Mg Tab) 1 mg PO DAILY [facility] Stop: 11/30/21 08:59 Last Admin: 11/11/21 08:00 Dose: 1 mg Documented by: Gabapentin (Gabapentin 100 Mg Cap) 100 mg PO BID [facility] Stop: 12/07/21 20:59 Last Admin: 11/11/21 20:54 Dose: 100 mg Documented by: Lactobacillus Acidophilus (Advanced Probiotic 1250 Mg Capsule) 2 cap PO DAILY [facility] Stop: 12/09/21 08:59 Last Admin: 11/11/21 08:00 Dose: 2 cap Documented by: Latanoprost (Latanoprost 0.005% Op Soln 2.5 Ml Btl) 1 drops OP PM [facility] Stop: 11/30/21 20:59 Last Admin: 11/11/21 20:55 Dose: 1 drops Documented by: Levothyroxine Sodium (Levothyroxine Sodium 112 Mcg Tablet) 112 mcg PO DAILYBB [facility] Stop: 11/30/21 08:59 Last Admin: 11/12/21 05:09 Dose: 112 mcg Documented by: Lidocaine (Lidocaine 5% 1 Patch) 1 patch TD QAM [facility] Stop: 12/07/21 16:44 Last Admin: 11/11/21 09:56 Dose: Not Given Documented by: Magnesium Hydroxide (Magnesium Hydroxide Susp 30 Ml Udc) 30 ml PO Q6H PRN PRN Reason: Constipation Stop: 12/03/21 14:53 Magnesium Oxide (Magnesium Oxide 400 Mg Tab) 400 mg PO QDD [facility] Stop: 11/30/21 16:29 Last Admin: 11/11/21 15:55 Dose: Not Given Documented by: Metoprolol Tartrate (Metoprolol Tartrate 25 Mg Tab) 25 mg PO BID [facility] Stop: 12/04/21 20:59 Last Admin: 11/11/21 20:56 Dose: 25 mg Documented by: Miscellaneous (Remove Lidoderm Patch) 1 ea N/A DAILY@2100 [facility] Stop: 12/07/21 22:59 Last Admin: 11/11/21 20:57 Dose: 1 ea Documented by: Multivitamins (Multivitamin Tab) 1 tab PO QAM [facility] Stop: 12/04/21 08:59 Last Admin: 11/11/21 08:00 Dose: 1 tab Documented by: Naloxone HCl (Naloxone Hcl 0.4 Mg/1 Ml Vial/Carp) 0.1 mg IV Q5M PRN PRN Reason: Oversedation/Resp Depression Stop: 12/03/21 14:53 Ondansetron HCl (Ondansetron Inj 2 Mg/Ml 2 Ml Vial) 4 mg IV Q6H PRN PRN Reason: Nausea Stop: 11/30/21 05:31 Pantoprazole Sodium (Pantoprazole 40 Mg Tab) 40 mg PO DAILYBB [facility] Stop: 12/01/21 06:29 Last Admin: 11/12/21 05:09 Dose: 40 mg Documented by: Polyethylene Glycol (Polyethylene (Miralax) 17 Gm Pack) 17 gm PO DAILY PRN PRN Reason: Constipation Stop: 11/30/21 05:31 Raspberry (Raspberry Syrup 5 Ml Udp) 5 ml PO DAILY [facility] Stop: 11/30/21 08:59 Last Admin: 11/11/21 08:00 Dose: 5 ml Documented by: Saccharomyces Boulardii (Saccharomyces Boulardii 250 Mg Cap) 250 mg PO DAILY [facility] Stop: 12/05/21 08:59 Last Admin: 11/11/21 08:00 Dose: 250 mg Documented by: Sertraline HCl (Sertraline Hcl 100 Mg Tablet) 100 mg PO QAM [facility] Stop: 11/30/21 08:59 Last Admin: 11/11/21 08:00 Dose: 100 mg Documented by: Tramadol HCl (Tramadol Hcl 50 Mg Tablet) 50 mg PO Q4H PRN PRN Reason: Pain & Pre PT Stop: 12/03/21 14:53 Last Admin: 11/11/21 13:41 Dose: 50 mg Documented by: Umeclidinium/Vilanterol (Umeclidinium/Vilanterol 62.5/25mcg 7 Puffs/Inhaler) 1 puffs INH DAILY [facility] Stop: 11/30/21 08:59 Last Admin: 11/11/21 08:00 Dose: 1 puffs Documented by: Vancomycin HCl (Vancomycin Hcl 125 Mg/2.5ml Soln) 125 mg PO DAILY [facility] Stop: 11/30/21 08:59 Last Admin: 11/11/21 08:00 Dose: 125 mg Documented by: Vitamin D (Cholecalciferol 1,000 Units 25 Mcg Tab) 2,000 units PO QAM [facility] Stop: 11/30/21 08:59 Last Admin: 11/11/21 08:00 Dose: 2,000 units Documented by: (1) Dementia Alzheimer's disease onset: unspecified onset Dementia behavioral disturbance: without behavioral disturbance Dementia type: Alzheimer's disease Qualified Code(s): G30.9 - Alzheimer's disease, unspecified; F02.80 - Dementia in other diseases classified elsewhere without behavioral disturbance (2) Depression Active/Remission status: remission status unspecified Depression Type: major depressive disorder Major depression recurrence: unspecified whether recurrent Qualified Code(s): F32.9 - Major depressive disorder, single episode, unspecified (3) Hypothyroid Hypothyroidism type: unspecified Qualified Code(s): E03.9 - Hypothyroidism, unspecified (4) COPD (chronic obstructive pulmonary disease) COPD type: unspecified COPD Qualified Code(s): J44.9 - Chronic obstructive pulmonary disease, unspecified (5) Bronchiectasis Bronchiectasis type: uncomplicated Qualified Code(s): J47.9 - Bronchiectasis, uncomplicated (6) Hip fracture, left Encounter type: initial encounter Fracture type: closed Qualified Code(s): S72.002A - Fracture of unspecified part of neck of left femur, initial encounter for closed fracture
[2021-11-12] MEDS: AZELASTINE HCL 0.1% NASAL 200 SPRAYS/27,400 MCG BTL SCH ×2 (08:29→15:05)
[2021-11-12] MEDS: SERTRALINE HCL 100 MG TABLET PO SCH (08:30)
[2021-11-12] MEDS: ADVANCED PROBIOTIC 1250 MG CAPSULE PO SCH (08:30)
[2021-11-12] MEDS: CHOLECALCIFEROL 1,000 UNITS 25 MCG TAB PO SCH (08:30)
[2021-11-12] MEDS: DONEPEZIL HCL 5 MG TAB PO SCH (08:30)
[2021-11-12] MEDS: MULTIVITAMIN TAB PO SCH (08:30)
[2021-11-12] MEDS: FAMOTIDINE 20 MG TAB PO SCH ×2 (08:30→20:48)
[2021-11-12] MEDS: SACCHAROMYCES BOULARDII 250 MG CAP PO SCH (08:30)
[2021-11-12] MEDS: FOLIC ACID 1 MG TAB PO SCH (08:30)
[2021-11-12] MEDS: ASPIRIN 81 MG ECTAB PO SCH (08:30)
[2021-11-12] MEDS: GABAPENTIN 100 MG CAP PO SCH ×2 (08:30→20:48)
[2021-11-12] MEDS: METOPROLOL TARTRATE 25 MG TAB PO SCH ×2 (08:30→20:49)
[2021-11-12] MEDS: UMECLIDINIUM/VILANTEROL 62.5/25MCG 7 PUFFS/INHALER INH SCH (08:31)
[2021-11-12] MEDS: RASPBERRY SYRUP 5 ML UDP PO SCH (08:31)
[2021-11-12] MEDS: DOCUSATE SODIUM 100 MG CAP PO SCH ×2 (08:31→20:49)
[2021-11-12] MEDS: LIDOCAINE 5% 1 PATCH TD SCH (10:20)
[2021-11-12] MEDS: VANCOMYCIN HCL 125 MG/2.5ML SOLN PO SCH (11:52)
[2021-11-12] MEDS: MAGNESIUM OXIDE 400 MG TAB PO SCH (15:05)
[2021-11-12] MEDS: CALCIUM CARBONATE 500 MG CHEWABLE TAB PO SCH (15:05)
[2021-11-12] MEDS: clonazePAM 0.5 MG TAB PO SCH (20:46)
[2021-11-12] MEDS: ATORVASTATIN 20 MG TAB PO SCH (20:47)
[2021-11-12] MEDS: LATANOPROST 0.005% OP SOLN 2.5 ML BTL OP SCH (20:49)
[2021-11-13] MEDS: ACETAMINOPHEN 325 MG TAB PO SCH ×3 (05:29→21:22)
[2021-11-13] MEDS: LEVOTHYROXINE SODIUM 112 MCG TABLET PO SCH (05:29)
[2021-11-13] MEDS: PANTOprazole 40 MG TAB PO SCH (05:30)
[2021-11-13] MEDS: CHOLECALCIFEROL 1,000 UNITS 25 MCG TAB PO SCH (09:33)
[2021-11-13] MEDS: DONEPEZIL HCL 5 MG TAB PO SCH (09:33)
[2021-11-13] MEDS: AZELASTINE HCL 0.1% NASAL 200 SPRAYS/27,400 MCG BTL SCH ×2 (09:33→17:44)
[2021-11-13] MEDS: ASPIRIN 81 MG ECTAB PO SCH (09:33)
[2021-11-13] MEDS: GABAPENTIN 100 MG CAP PO SCH ×2 (09:34→20:16)
[2021-11-13] MEDS: DOCUSATE SODIUM 100 MG CAP PO SCH ×2 (09:34→20:19)
[2021-11-13] MEDS: MULTIVITAMIN TAB PO SCH (09:34)
[2021-11-13] MEDS: FAMOTIDINE 20 MG TAB PO SCH ×2 (09:34→20:16)
[2021-11-13] MEDS: ADVANCED PROBIOTIC 1250 MG CAPSULE PO SCH (09:34)
[2021-11-13] MEDS: RASPBERRY SYRUP 5 ML UDP PO SCH (09:34)
[2021-11-13] MEDS: FOLIC ACID 1 MG TAB PO SCH (09:34)
[2021-11-13] MEDS: SACCHAROMYCES BOULARDII 250 MG CAP PO SCH (09:34)
[2021-11-13] MEDS: SERTRALINE HCL 100 MG TABLET PO SCH (09:34)
[2021-11-13] MEDS: METOPROLOL TARTRATE 25 MG TAB PO SCH ×2 (09:34→20:16)
[2021-11-13] MEDS: VANCOMYCIN HCL 125 MG/2.5ML SOLN PO SCH (09:35)
[2021-11-13] MEDS: UMECLIDINIUM/VILANTEROL 62.5/25MCG 7 PUFFS/INHALER INH SCH (09:35)
[2021-11-13] MEDS: LIDOCAINE 5% 1 PATCH TD SCH (09:35)
--- NOTE | 2021-11-13 11:57 | Hospitalist Progress Note ---
Date of Service November 13, 2021 Assessment & Plan (1) Non-ST elevation (NSTEMI) myocardial infarction: Plan: Finished heparin drip for 48 hours. TTE with moderate apical lateral wall motion abnormalities Metoplol 12.5mg BID -aspirin 81mg, started statin. No plavix per Cardiology (2) Hip fracture, left: Plan: s/p left hemiarthroplasty 11/03 -Pain control: Scheduled tylenol 650mg TID, started lidoderm patch and gabapentin 100mg BID 11/07, PRN tramadol for breakthrough pain (3) COPD (chronic obstructive pulmonary disease): Plan: History of chronic respiratory failure secondary to COPD and bronchiectasis on home oxygen No acute exacerbation of her symptoms (4) Bronchiectasis: (5) Hypothyroid: Plan: Continue supplement (6) Dementia: Plan: Dementia which has been progressing as per the outpatient neurological note Delirium recently with UTI and acute illness, delirium now resolved (7) Depression: Plan: No acute symptoms Plan: Pseudomonas UTI -s/p ceftriaxone now discontinued. Finished 5 day course of Cefepime on 11/10/21 DVT prophylaxis -aspirin SCD and TEDS per ortho CODE STATUS DNR/DNI Disposition -Patient is medically stable for discharge, CM involved Admission and Anticipated Discharge Date Admission Date: October 31, 2021 Subjective Patient seen in follow-up of NSTEMI, hip fracture repair, UTI Currently patient is sitting up in bed, in no acute distress, on supplemental oxygen (at baseline) Denies any fevers, chills, chest pain, shortness of breath, abdominal pain, difficulty voiding, or burning with urination No nausea vomiting or diarrhea Review of Systems Review of Systems: All systems reviewed & are unremarkable except as noted in Subjective Physical Exam Physical Exam: Physical Exam: Elderly female, si tting up in bed, i n no acute distres s Respiratory: Breathing comforta elo on 2L NC, no w heezing/rhonchi/ra les Cardiovascular:J Regular rate and r hythm, no murmurs/ rubs Gastrointestinal ( Abdomen): soft, non tender Musculoskeletal: No edema, no cyano sis Neurologic: awake, alert, spee ch fluent, spontan eously moving extr emities Results & Data Results & Data ([facility]) Vital Signs (Past 12 Hours) Vital Signs Temp Pulse Resp BP BP Pulse Ox 11/13/21 11:10 37.1 C 94 H 18 126/62 98 11/13/21 08:21 36.9 C 84 18 138/72 100 11/13/21 03:59 37.0 C 89 18 137/74 96 Medications Administered Current Inpatient Medications Acetaminophen (Acetaminophen 325 Mg Tab) 650 mg PO Q8 [facility] Stop: 12/02/21 13:59 Last Admin: 11/13/21 05:29 Dose: 650 mg Documented by: Albuterol (Albuterol 0.083% Nebu Soln 3 Ml Vial) 2.5 mg INH QID PRN; Protocol PRN Reason: Shortness Of Breath Or Wheezing Stop: 11/30/21 08:05 Last Admin: 11/06/21 00:23 Dose: 2.5 mg Documented by: Aspirin (Aspirin 81 Mg Ectab) 81 mg PO QAM [facility] Stop: 12/06/21 08:59 Last Admin: 11/13/21 09:33 Dose: 81 mg Documented by: Atorvastatin Calcium (Atorvastatin 20 Mg Tab) 20 mg PO HS [facility] Stop: 12/05/21 20:59 Last Admin: 11/12/21 20:47 Dose: 20 mg Documented by: Azelastine HCl (Azelastine Hcl 0.1% Nasal 200 Sprays/27,400 Mcg Btl) 2 sprays NA BIDM [facility] Stop: 11/30/21 16:59 Last Admin: 11/13/21 09:33 Dose: 2 sprays Documented by: Bisacodyl (Bisacodyl 10 Mg Supp) 10 mg [place] DAILY PRN PRN Reason: Constipation Stop: 12/03/21 14:53 Calcium Carbonate (Calcium Carbonate 500 Mg Chewable Tab) 500 mg PO QDD [facility] Stop: 11/30/21 16:29 Last Admin: 11/12/21 15:05 Dose: Not Given Documented by: Clonazepam (Clonazepam 0.5 Mg Tab) 0.5 mg PO HS [facility] Stop: 11/30/21 20:59 Last Admin: 11/12/21 20:46 Dose: 0.5 mg Documented by: Docusate Sodium (Docusate Sodium 100 Mg Cap) 100 mg PO BID [facility] Stop: 12/03/21 20:59 Last Admin: 11/13/21 09:34 Dose: Not Given Documented by: Donepezil HCl (Donepezil Hcl 5 Mg Tab) 5 mg PO DAILY [facility] Stop: 11/30/21 08:59 Last Admin: 11/13/21 09:33 Dose: 5 mg Documented by: Famotidine (Famotidine 20 Mg Tab) 20 mg PO BID [facility] Stop: 11/30/21 08:59 Last Admin: 11/13/21 09:34 Dose: 20 mg Documented by: Folic Acid (Folic Acid 1 Mg Tab) 1 mg PO DAILY [facility] Stop: 11/30/21 08:59 Last Admin: 11/13/21 09:34 Dose: 1 mg Documented by: Gabapentin (Gabapentin 100 Mg Cap) 100 mg PO BID [facility] Stop: 12/07/21 20:59 Last Admin: 11/13/21 09:34 Dose: 100 mg Documented by: Lactobacillus Acidophilus (Advanced Probiotic 1250 Mg Capsule) 2 cap PO DAILY [facility] Stop: 12/09/21 08:59 Last Admin: 11/13/21 09:34 Dose: 2 cap Documented by: Latanoprost (Latanoprost 0.005% Op Soln 2.5 Ml Btl) 1 drops OP PM [facility] Stop: 11/30/21 20:59 Last Admin: 11/12/21 20:49 Dose: 1 drops Documented by: Levothyroxine Sodium (Levothyroxine Sodium 112 Mcg Tablet) 112 mcg PO DAILYBB [facility] Stop: 11/30/21 08:59 Last Admin: 11/13/21 05:29 Dose: 112 mcg Documented by: Lidocaine (Lidocaine 5% 1 Patch) 1 patch TD QAM [facility] Stop: 12/07/21 16:44 Last Admin: 11/13/21 09:35 Dose: 1 patch Documented by: Magnesium Hydroxide (Magnesium Hydroxide Susp 30 Ml Udc) 30 ml PO Q6H PRN PRN Reason: Constipation Stop: 12/03/21 14:53 Magnesium Oxide (Magnesium Oxide 400 Mg Tab) 400 mg PO QDD [facility] Stop: 11/30/21 16:29 Last Admin: 11/12/21 15:05 Dose: 400 mg Documented by: Metoprolol Tartrate (Metoprolol Tartrate 25 Mg Tab) 25 mg PO BID [facility] Stop: 12/04/21 20:59 Last Admin: 11/13/21 09:34 Dose: 25 mg Documented by: Miscellaneous (Remove Lidoderm Patch) 1 ea N/A DAILY@2100 [facility] Stop: 12/07/21 22:59 Last Admin: 11/12/21 20:49 Dose: 1 ea Documented by: Multivitamins (Multivitamin Tab) 1 tab PO QAM [facility] Stop: 12/04/21 08:59 Last Admin: 11/13/21 09:34 Dose: 1 tab Documented by: Naloxone HCl (Naloxone Hcl 0.4 Mg/1 Ml Vial/Carp) 0.1 mg IV Q5M PRN PRN Reason: Oversedation/Resp Depression Stop: 12/03/21 14:53 Ondansetron HCl (Ondansetron Inj 2 Mg/Ml 2 Ml Vial) 4 mg IV Q6H PRN PRN Reason: Nausea Stop: 11/30/21 05:31 Pantoprazole Sodium (Pantoprazole 40 Mg Tab) 40 mg PO DAILYBB [facility] Stop: 12/01/21 06:29 Last Admin: 11/13/21 05:30 Dose: 40 mg Documented by: Polyethylene Glycol (Polyethylene (Miralax) 17 Gm Pack) 17 gm PO DAILY PRN PRN Reason: Constipation Stop: 11/30/21 05:31 Raspberry (Raspberry Syrup 5 Ml Udp) 5 ml PO DAILY [facility] Stop: 11/30/21 08:59 Last Admin: 11/13/21 09:34 Dose: 5 ml Documented by: Saccharomyces Boulardii (Saccharomyces Boulardii 250 Mg Cap) 250 mg PO DAILY [facility] Stop: 12/05/21 08:59 Last Admin: 11/13/21 09:34 Dose: 250 mg Documented by: Sertraline HCl (Sertraline Hcl 100 Mg Tablet) 100 mg PO QAM [facility] Stop: 11/30/21 08:59 Last Admin: 11/13/21 09:34 Dose: 100 mg Documented by: Tramadol HCl (Tramadol Hcl 50 Mg Tablet) 50 mg PO Q4H PRN PRN Reason: Pain & Pre PT Stop: 12/03/21 14:53 Last Admin: 11/11/21 13:41 Dose: 50 mg Documented by: Umeclidinium/Vilanterol (Umeclidinium/Vilanterol 62.5/25mcg 7 Puffs/Inhaler) 1 puffs INH DAILY [facility] Stop: 11/30/21 08:59 Last Admin: 11/13/21 09:35 Dose: 1 puffs Documented by: Vancomycin HCl (Vancomycin Hcl 125 Mg/2.5ml Soln) 125 mg PO DAILY [facility] Stop: 11/30/21 08:59 Last Admin: 11/13/21 09:35 Dose: 125 mg Documented by: Vitamin D (Cholecalciferol 1,000 Units 25 Mcg Tab) 2,000 units PO QAM [facility] Stop: 11/30/21 08:59 Last Admin: 11/13/21 09:33 Dose: 2,000 units Documented by: (1) Dementia Alzheimer's disease onset: unspecified onset Dementia behavioral disturbance: without behavioral disturbance Dementia type: Alzheimer's disease Qualified Code(s): G30.9 - Alzheimer's disease, unspecified; F02.80 - Dementia in other diseases classified elsewhere without behavioral disturbance (2) Depression Active/Remission status: remission status unspecified Depression Type: major depressive disorder Major depression recurrence: unspecified whether recurrent Qualified Code(s): F32.9 - Major depressive disorder, single episode, unspecified (3) Hypothyroid Hypothyroidism type: unspecified Qualified Code(s): E03.9 - Hypothyroidism, unspecified (4) COPD (chronic obstructive pulmonary disease) COPD type: unspecified COPD Qualified Code(s): J44.9 - Chronic obstructive pulmonary disease, unspecified (5) Bronchiectasis Bronchiectasis type: uncomplicated Qualified Code(s): J47.9 - Bronchiectasis, uncomplicated (6) Hip fracture, left Encounter type: initial encounter Fracture type: closed Qualified Code(s): S72.002A - Fracture of unspecified part of neck of left femur, initial encounter for closed fracture
[2021-11-13 15:19] LABS: Anion Gap 5 (3-11); BUN Creatinine Ratio 28.2 (10-20); Blood Urea Nitrogen 29 mg/dl (6-23); Calcium 8.7 mg/dl (8.5-10.1); Carbon Dioxide 32 mmol/L (21-32); Chloride 100 mmol/L (98-107); Creatinine Clr Calc Pharmacy 34.7 ml/min; Est GFR (African American) 59.9 ml/min; Est GFR (Non-African American) 51.7 ml/min; Glucose 112 mg/dl (70-99(Fasting)); Phosphorus 3.2 mg/dl (2.5-4.9); Sodium 137 mmol/L (136-145)
[2021-11-13] MEDS: CALCIUM CARBONATE 500 MG CHEWABLE TAB PO SCH (17:48)
[2021-11-13] MEDS: MAGNESIUM OXIDE 400 MG TAB PO SCH (17:49)
[2021-11-13] MEDS: ATORVASTATIN 20 MG TAB PO SCH (20:16)
[2021-11-13] MEDS: clonazePAM 0.5 MG TAB PO SCH (20:19)
[2021-11-13] MEDS: LATANOPROST 0.005% OP SOLN 2.5 ML BTL OP SCH (21:22)
[2021-11-14] MEDS: LEVOTHYROXINE SODIUM 112 MCG TABLET PO SCH (05:40)
[2021-11-14] MEDS: ACETAMINOPHEN 325 MG TAB PO SCH ×3 (05:40→21:18)
[2021-11-14] MEDS: PANTOprazole 40 MG TAB PO SCH (05:40)
--- NOTE | 2021-11-14 08:39 | Hospitalist Progress Note ---
Date of Service November 14, 2021 Assessment & Plan (1) Non-ST elevation (NSTEMI) myocardial infarction: Plan: Finished heparin drip for 48 hours. TTE with moderate apical lateral wall motion abnormalities Metoplol 12.5mg BID -aspirin 81mg, started statin. No plavix per Cardiology (2) Hip fracture, left: Plan: s/p left hemiarthroplasty 11/03 -Pain control: Scheduled tylenol 650mg TID, started lidoderm patch and gabapentin 100mg BID 11/07, PRN tramadol for breakthrough pain (3) COPD (chronic obstructive pulmonary disease): Plan: History of chronic respiratory failure secondary to COPD and bronchiectasis on home oxygen No acute exacerbation of her symptoms (4) Bronchiectasis: (5) Hypothyroid: Plan: Continue supplement (6) Dementia: Plan: Dementia which has been progressing as per the outpatient neurological note Delirium recently with UTI and acute illness, delirium now resolved (7) Depression: Plan: No acute symptoms Plan: Pseudomonas UTI -s/p ceftriaxone. Finished 5 day course of Cefepime on 11/10/21 DVT prophylaxis -aspirin SCD and TEDS per ortho CODE STATUS DNR/DNI Disposition -Patient is medically stable for discharge, CM involved Admission and Anticipated Discharge Date Admission Date: October 31, 2021 Subjective Patient seen in follow-up of NSTEMI, hip fracture repair, UTI Currently patient is sitting up in bed, in no acute distress, on supplemental oxygen (at baseline) Denies any fevers, chills, chest pain, shortness of breath, abdominal pain, difficulty voiding, or burning with urination No nausea vomiting or diarrhea Review of Systems Review of Systems: All systems reviewed & are unremarkable except as noted in Subjective Physical Exam Physical Exam: Physical Exam: Elderly female, si tting up in bed, i n no acute distres s Respiratory: Breathing comforta elo on 2L NC, no w heezing/rhonchi/ra les Cardiovascular:J Regular rate and r hythm, no murmurs/ rubs Gastrointestinal ( Abdomen): soft, non tender Musculoskeletal: No edema, no cyano sis Neurologic: awake, alert, spee ch fluent, spontan eously moving extr emities, able to a nswer some questio ns appropriately, history of dementi a Results & Data Results & Data ([facility]) Vital Signs (Past 12 Hours) Vital Signs Temp Pulse Resp BP Pulse Ox 06/13/22 07:48 36.7 C 79 16 133/72 100 Medications Administered Current Inpatient Medications Acetaminophen (Acetaminophen 325 Mg Tab) 650 mg PO Q8 DAWIT Stop: 12/02/21 13:59 Last Admin: 11/15/21 05:47 Dose: 650 mg Documented by: Albuterol (Albuterol 0.083% Nebu Soln 3 Ml Vial) 2.5 mg INH QID PRN; Protocol PRN Reason: Shortness Of Breath Or Wheezing Stop: 11/30/21 08:05 Last Admin: 11/06/21 00:23 Dose: 2.5 mg Documented by: Aspirin (Aspirin 81 Mg Ectab) 81 mg PO QAM DAWIT Stop: 12/06/21 08:59 Last Admin: 11/15/21 09:08 Dose: 81 mg Documented by: Atorvastatin Calcium (Atorvastatin 20 Mg Tab) 20 mg PO HS [facility] Stop: 12/05/21 20:59 Last Admin: 11/14/21 21:17 Dose: 20 mg Documented by: Azelastine HCl (Azelastine Hcl 0.1% Nasal 200 Sprays/27,400 Mcg Btl) 2 sprays NA BIDM [facility] Stop: 11/30/21 16:59 Last Admin: 11/15/21 09:09 Dose: 2 sprays Documented by: Bisacodyl (Bisacodyl 10 Mg Supp) 10 mg OR DAILY PRN PRN Reason: Constipation Stop: 12/03/21 14:53 Calcium Carbonate (Calcium Carbonate 500 Mg Chewable Tab) 500 mg PO QDD DAWIT Stop: 11/30/21 16:29 Last Admin: 11/14/21 16:37 Dose: 500 mg Documented by: Clonazepam (Clonazepam 0.5 Mg Tab) 0.5 mg PO HS [facility] Stop: 11/30/21 20:59 Last Admin: 11/14/21 21:16 Dose: 0.5 mg Documented by: Docusate Sodium (Docusate Sodium 100 Mg Cap) 100 mg PO BID DAWIT Stop: 12/03/21 20:59 Last Admin: 11/15/21 09:07 Dose: Not Given Documented by: Donepezil HCl (Donepezil Hcl 5 Mg Tab) 5 mg PO DAILY DAWIT Stop: 11/30/21 08:59 Last Admin: 11/15/21 09:08 Dose: 5 mg Documented by: Famotidine (Famotidine 20 Mg Tab) 20 mg PO BID DAWIT Stop: 11/30/21 08:59 Last Admin: 11/15/21 09:21 Dose: 20 mg Documented by: Folic Acid (Folic Acid 1 Mg Tab) 1 mg PO DAILY DAWIT Stop: 11/30/21 08:59 Last Admin: 11/15/21 09:08 Dose: 1 mg Documented by: Gabapentin (Gabapentin 100 Mg Cap) 100 mg PO BID DAWIT Stop: 12/07/21 20:59 Last Admin: 11/15/21 09:08 Dose: 100 mg Documented by: Lactobacillus Acidophilus (Advanced Probiotic 1250 Mg Capsule) 2 cap PO DAILY DAWIT Stop: 12/09/21 08:59 Last Admin: 11/15/21 09:08 Dose: 2 cap Documented by: Latanoprost (Latanoprost 0.005% Op Soln 2.5 Ml Btl) 1 drops OP PM DAWIT Stop: 11/30/21 20:59 Last Admin: 11/14/21 21:17 Dose: 1 drops Documented by: Levothyroxine Sodium (Levothyroxine Sodium 112 Mcg Tablet) 112 mcg PO DAILYBB DAWIT Stop: 11/30/21 08:59 Last Admin: 11/15/21 05:47 Dose: 112 mcg Documented by: Lidocaine (Lidocaine 5% 1 Patch) 1 patch TD QAM DAWIT Stop: 12/07/21 16:44 Last Admin: 11/15/21 09:09 Dose: 1 patch Documented by: Magnesium Hydroxide (Magnesium Hydroxide Susp 30 Ml Udc) 30 ml PO Q6H PRN PRN Reason: Constipation Stop: 12/03/21 14:53 Magnesium Oxide (Magnesium Oxide 400 Mg Tab) 400 mg PO QDD DAWIT Stop: 11/30/21 16:29 Last Admin: 11/14/21 16:37 Dose: 400 mg Documented by: Metoprolol Tartrate (Metoprolol Tartrate 25 Mg Tab) 25 mg PO BID DAWIT Stop: 12/04/21 20:59 Last Admin: 11/15/21 09:08 Dose: 25 mg Documented by: Miscellaneous (Remove Lidoderm Patch) 1 ea N/A DAILY@2100 DAWIT Stop: 12/07/21 22:59 Last Admin: 11/14/21 21:13 Dose: 1 ea Documented by: Multivitamins (Multivitamin Tab) 1 tab PO QAM DAWIT Stop: 12/04/21 08:59 Last Admin: 11/15/21 09:08 Dose: 1 tab Documented by: Naloxone HCl (Naloxone Hcl 0.4 Mg/1 Ml Vial/Carp) 0.1 mg IV Q5M PRN PRN Reason: Oversedation/Resp Depression Stop: 12/03/21 14:53 Ondansetron HCl (Ondansetron Inj 2 Mg/Ml 2 Ml Vial) 4 mg IV Q6H PRN PRN Reason: Nausea Stop: 11/30/21 05:31 Pantoprazole Sodium (Pantoprazole 40 Mg Tab) 40 mg PO DAILYBB DAWIT Stop: 12/01/21 06:29 Last Admin: 11/15/21 05:47 Dose: 40 mg Documented by: Polyethylene Glycol (Polyethylene (Miralax) 17 Gm Pack) 17 gm PO DAILY PRN PRN Reason: Constipation Stop: 11/30/21 05:31 Raspberry (Raspberry Syrup 5 Ml Udp) 5 ml PO DAILY DAWIT Stop: 11/30/21 08:59 Last Admin: 11/15/21 09:09 Dose: 5 ml Documented by: Saccharomyces Boulardii (Saccharomyces Boulardii 250 Mg Cap) 250 mg PO DAILY DAWIT Stop: 12/05/21 08:59 Last Admin: 11/15/21 09:08 Dose: 250 mg Documented by: Sertraline HCl (Sertraline Hcl 100 Mg Tablet) 100 mg PO QAM DAWIT Stop: 11/30/21 08:59 Last Admin: 11/15/21 09:07 Dose: 100 mg Documented by: Tramadol HCl (Tramadol Hcl 50 Mg Tablet) 50 mg PO Q4H PRN PRN Reason: Pain & Pre PT Stop: 12/03/21 14:53 Last Admin: 11/14/21 21:16 Dose: 50 mg Documented by: Umeclidinium/Vilanterol (Umeclidinium/Vilanterol 62.5/25mcg 7 Puffs/Inhaler) 1 puffs INH DAILY DAWIT Stop: 11/30/21 08:59 Last Admin: 11/15/21 09:08 Dose: 1 puffs Documented by: Vancomycin HCl (Vancomycin Hcl 125 Mg/2.5ml Soln) 125 mg PO DAILY DAWIT Stop: 11/30/21 08:59 Last Admin: 11/15/21 09:21 Dose: 125 mg Documented by: Vitamin D (Cholecalciferol 1,000 Units 25 Mcg Tab) 2,000 units PO QAM [facility] Stop: 11/30/21 08:59 Last Admin: 11/15/21 09:08 Dose: 2,000 units Documented by: (1) Dementia Alzheimer's disease onset: unspecified onset Dementia behavioral disturbance: without behavioral disturbance Dementia type: Alzheimer's disease Qualified Code(s): G30.9 - Alzheimer's disease, unspecified; F02.80 - Dementia in other diseases classified elsewhere without behavioral disturbance (2) Depression Active/Remission status: remission status unspecified Depression Type: major depressive disorder Major depression recurrence: unspecified whether recurrent Qualified Code(s): F32.9 - Major depressive disorder, single episode, unspecified (3) Hypothyroid Hypothyroidism type: unspecified Qualified Code(s): E03.9 - Hypothyroidism, unspecified (4) COPD (chronic obstructive pulmonary disease) COPD type: unspecified COPD Qualified Code(s): J44.9 - Chronic obstructive pulmonary disease, unspecified (5) Bronchiectasis Bronchiectasis type: uncomplicated Qualified Code(s): J47.9 - Bronchiectasis, uncomplicated (6) Hip fracture, left Encounter type: initial encounter Fracture type: closed Qualified Code(s): S72.002A - Fracture of unspecified part of neck of left femur, initial encounter for closed fracture
[2021-11-14] MEDS: SERTRALINE HCL 100 MG TABLET PO SCH (08:45)
[2021-11-14] MEDS: SACCHAROMYCES BOULARDII 250 MG CAP PO SCH (08:45)
[2021-11-14] MEDS: MULTIVITAMIN TAB PO SCH (08:45)
[2021-11-14] MEDS: GABAPENTIN 100 MG CAP PO SCH ×2 (08:46→21:17)
[2021-11-14] MEDS: ADVANCED PROBIOTIC 1250 MG CAPSULE PO SCH (08:46)
[2021-11-14] MEDS: DONEPEZIL HCL 5 MG TAB PO SCH (08:46)
[2021-11-14] MEDS: METOPROLOL TARTRATE 25 MG TAB PO SCH ×2 (08:46→21:16)
[2021-11-14] MEDS: ASPIRIN 81 MG ECTAB PO SCH (08:46)
[2021-11-14] MEDS: FOLIC ACID 1 MG TAB PO SCH (08:46)
[2021-11-14] MEDS: FAMOTIDINE 20 MG TAB PO SCH ×2 (08:46→21:16)
[2021-11-14] MEDS: CHOLECALCIFEROL 1,000 UNITS 25 MCG TAB PO SCH (08:46)
[2021-11-14] MEDS: LIDOCAINE 5% 1 PATCH TD SCH (08:47)
[2021-11-14] MEDS: AZELASTINE HCL 0.1% NASAL 200 SPRAYS/27,400 MCG BTL SCH ×2 (08:47→16:37)
[2021-11-14] MEDS: UMECLIDINIUM/VILANTEROL 62.5/25MCG 7 PUFFS/INHALER INH SCH (08:48)
[2021-11-14] MEDS: DOCUSATE SODIUM 100 MG CAP PO SCH ×2 (08:48→21:17)
[2021-11-14] MEDS: RASPBERRY SYRUP 5 ML UDP PO SCH (09:29)
[2021-11-14] MEDS: VANCOMYCIN HCL 125 MG/2.5ML SOLN PO SCH (09:29)
[2021-11-14] MEDS: traMADol HCL 50 MG TABLET PO PRN ×2 (15:04→21:16)
[2021-11-14] MEDS: MAGNESIUM OXIDE 400 MG TAB PO SCH (16:37)
[2021-11-14] MEDS: CALCIUM CARBONATE 500 MG CHEWABLE TAB PO SCH (16:37)
[2021-11-14] MEDS: clonazePAM 0.5 MG TAB PO SCH (21:16)
[2021-11-14] MEDS: LATANOPROST 0.005% OP SOLN 2.5 ML BTL OP SCH (21:17)
[2021-11-14] MEDS: ATORVASTATIN 20 MG TAB PO SCH (21:17)
[2021-11-15] MEDS: ACETAMINOPHEN 325 MG TAB PO SCH ×3 (05:47→20:57)
[2021-11-15] MEDS: LEVOTHYROXINE SODIUM 112 MCG TABLET PO SCH (05:47)
[2021-11-15] MEDS: PANTOprazole 40 MG TAB PO SCH (05:47)
[2021-11-15] MEDS: DOCUSATE SODIUM 100 MG CAP PO SCH ×2 (09:07→20:56)
[2021-11-15] MEDS: SERTRALINE HCL 100 MG TABLET PO SCH (09:07)
[2021-11-15] MEDS: SACCHAROMYCES BOULARDII 250 MG CAP PO SCH (09:08)
[2021-11-15] MEDS: DONEPEZIL HCL 5 MG TAB PO SCH (09:08)
[2021-11-15] MEDS: MULTIVITAMIN TAB PO SCH (09:08)
[2021-11-15] MEDS: ADVANCED PROBIOTIC 1250 MG CAPSULE PO SCH (09:08)
[2021-11-15] MEDS: FOLIC ACID 1 MG TAB PO SCH (09:08)
[2021-11-15] MEDS: ASPIRIN 81 MG ECTAB PO SCH (09:08)
[2021-11-15] MEDS: METOPROLOL TARTRATE 25 MG TAB PO SCH ×2 (09:08→20:57)
[2021-11-15] MEDS: GABAPENTIN 100 MG CAP PO SCH ×2 (09:08→20:57)
[2021-11-15] MEDS: UMECLIDINIUM/VILANTEROL 62.5/25MCG 7 PUFFS/INHALER INH SCH (09:08)
[2021-11-15] MEDS: CHOLECALCIFEROL 1,000 UNITS 25 MCG TAB PO SCH (09:08)
[2021-11-15] MEDS: AZELASTINE HCL 0.1% NASAL 200 SPRAYS/27,400 MCG BTL SCH ×2 (09:09→16:56)
[2021-11-15] MEDS: LIDOCAINE 5% 1 PATCH TD SCH (09:09)
[2021-11-15] MEDS: RASPBERRY SYRUP 5 ML UDP PO SCH (09:09)
[2021-11-15] MEDS: FAMOTIDINE 20 MG TAB PO SCH ×2 (09:21→20:57)
[2021-11-15] MEDS: VANCOMYCIN HCL 125 MG/2.5ML SOLN PO SCH (09:21)
--- NOTE | 2021-11-15 12:40 | Hospitalist Progress Note ---
Date of Service November 15, 2021 Assessment & Plan (1) Non-ST elevation (NSTEMI) myocardial infarction: Plan: Finished heparin drip for 48 hours. TTE with moderate apical lateral wall motion abnormalities Metoplol 12.5mg BID -aspirin 81mg, started statin. No plavix per Cardiology (2) Hip fracture, left: Plan: s/p left hemiarthroplasty 11/03 -Pain control: Scheduled tylenol 650mg TID, started lidoderm patch and gabapentin 100mg BID 11/07, PRN tramadol for breakthrough pain (3) COPD (chronic obstructive pulmonary disease): Plan: History of chronic respiratory failure secondary to COPD and bronchiectasis on home oxygen No acute exacerbation of her symptoms (4) Bronchiectasis: (5) Hypothyroid: Plan: Continue supplement (6) Dementia: Plan: Dementia which has been progressing as per the outpatient neurological note Delirium recently with UTI and acute illness, delirium now resolved (7) Depression: Plan: No acute symptoms Plan: Pseudomonas UTI -s/p ceftriaxone. Finished 5 day course of Cefepime on 11/10/21 DVT prophylaxis -aspirin SCD and TEDS per ortho CODE STATUS DNR/DNI Disposition -Patient is medically stable for discharge, CM involved Admission and Anticipated Discharge Date Admission Date: October 31, 2021 Subjective Patient seen in follow-up of NSTEMI, hip fracture repair, UTI Currently patient is sitting up in bed, in no acute distress Denies any fevers, chills, chest pain, shortness of breath, abdominal pain, difficulty voiding, or burning with urination No nausea vomiting or diarrhea Review of Systems Review of Systems: All systems reviewed & are unremarkable except as noted in Subjective Physical Exam Physical Exam: Physical Exam: Elderly female, si tting up in bed, i n no acute distres s Respiratory: Breathing comforta elo on 2L NC, no w heezing/rhonchi/ra les Cardiovascular:J Regular rate and r hythm, no murmurs/ rubs Gastrointestinal ( Abdomen): soft, non tender Musculoskeletal: No edema, no cyano sis Neurologic: awake, alert, spee ch fluent, spontan eously moving extr emities, able to a nswer some questio ns appropriately, history of dementi a Results & Data Results & Data ([facility]) Vital Signs (Past 12 Hours) Vital Signs Temp Pulse Resp BP Pulse Ox 11/15/21 07:39 36.8 C 83 18 129/68 100 Medications Administered Current Inpatient Medications Acetaminophen (Acetaminophen 325 Mg Tab) 650 mg PO Q8 [facility] Stop: 12/02/21 13:59 Last Admin: 11/15/21 05:47 Dose: 650 mg Documented by: Albuterol (Albuterol 0.083% Nebu Soln 3 Ml Vial) 2.5 mg INH QID PRN; Protocol PRN Reason: Shortness Of Breath Or Wheezing Stop: 11/30/21 08:05 Last Admin: 11/06/21 00:23 Dose: 2.5 mg Documented by: Aspirin (Aspirin 81 Mg Ectab) 81 mg PO QAM [facility] Stop: 12/06/21 08:59 Last Admin: 11/15/21 09:08 Dose: 81 mg Documented by: Atorvastatin Calcium (Atorvastatin 20 Mg Tab) 20 mg PO HS [facility] Stop: 12/05/21 20:59 Last Admin: 11/14/21 21:17 Dose: 20 mg Documented by: Azelastine HCl (Azelastine Hcl 0.1% Nasal 200 Sprays/27,400 Mcg Btl) 2 sprays NA BIDM [facility] Stop: 11/30/21 16:59 Last Admin: 11/15/21 09:09 Dose: 2 sprays Documented by: Bisacodyl (Bisacodyl 10 Mg Supp) 10 mg VT DAILY PRN PRN Reason: Constipation Stop: 12/03/21 14:53 Calcium Carbonate (Calcium Carbonate 500 Mg Chewable Tab) 500 mg PO QDD [facility] Stop: 11/30/21 16:29 Last Admin: 11/14/21 16:37 Dose: 500 mg Documented by: Clonazepam (Clonazepam 0.5 Mg Tab) 0.5 mg PO HS [facility] Stop: 11/30/21 20:59 Last Admin: 11/14/21 21:16 Dose: 0.5 mg Documented by: Docusate Sodium (Docusate Sodium 100 Mg Cap) 100 mg PO BID [facility] Stop: 12/03/21 20:59 Last Admin: 11/15/21 09:07 Dose: Not Given Documented by: Donepezil HCl (Donepezil Hcl 5 Mg Tab) 5 mg PO DAILY [facility] Stop: 11/30/21 08:59 Last Admin: 11/15/21 09:08 Dose: 5 mg Documented by: Famotidine (Famotidine 20 Mg Tab) 20 mg PO BID DAWIT Stop: 11/30/21 08:59 Last Admin: 11/15/21 09:21 Dose: 20 mg Documented by: Folic Acid (Folic Acid 1 Mg Tab) 1 mg PO DAILY DAWIT Stop: 11/30/21 08:59 Last Admin: 11/15/21 09:08 Dose: 1 mg Documented by: Gabapentin (Gabapentin 100 Mg Cap) 100 mg PO BID DAWIT Stop: 12/07/21 20:59 Last Admin: 11/15/21 09:08 Dose: 100 mg Documented by: Lactobacillus Acidophilus (Advanced Probiotic 1250 Mg Capsule) 2 cap PO DAILY DAWIT Stop: 12/09/21 08:59 Last Admin: 11/15/21 09:08 Dose: 2 cap Documented by: Latanoprost (Latanoprost 0.005% Op Soln 2.5 Ml Btl) 1 drops OP PM DAWIT Stop: 11/30/21 20:59 Last Admin: 11/14/21 21:17 Dose: 1 drops Documented by: Levothyroxine Sodium (Levothyroxine Sodium 112 Mcg Tablet) 112 mcg PO DAILYBB DAWIT Stop: 11/30/21 08:59 Last Admin: 11/15/21 05:47 Dose: 112 mcg Documented by: Lidocaine (Lidocaine 5% 1 Patch) 1 patch TD QAM [facility] Stop: 12/07/21 16:44 Last Admin: 11/15/21 09:09 Dose: 1 patch Documented by: Magnesium Hydroxide (Magnesium Hydroxide Susp 30 Ml Udc) 30 ml PO Q6H PRN PRN Reason: Constipation Stop: 12/03/21 14:53 Magnesium Oxide (Magnesium Oxide 400 Mg Tab) 400 mg PO QDD DAWIT Stop: 11/30/21 16:29 Last Admin: 11/14/21 16:37 Dose: 400 mg Documented by: Metoprolol Tartrate (Metoprolol Tartrate 25 Mg Tab) 25 mg PO BID [facility] Stop: 12/04/21 20:59 Last Admin: 11/15/21 09:08 Dose: 25 mg Documented by: Miscellaneous (Remove Lidoderm Patch) 1 ea N/A DAILY@2100 DAWIT Stop: 12/07/21 22:59 Last Admin: 11/14/21 21:13 Dose: 1 ea Documented by: Multivitamins (Multivitamin Tab) 1 tab PO QAM DAWIT Stop: 12/04/21 08:59 Last Admin: 11/15/21 09:08 Dose: 1 tab Documented by: Naloxone HCl (Naloxone Hcl 0.4 Mg/1 Ml Vial/Carp) 0.1 mg IV Q5M PRN PRN Reason: Oversedation/Resp Depression Stop: 12/03/21 14:53 Ondansetron HCl (Ondansetron Inj 2 Mg/Ml 2 Ml Vial) 4 mg IV Q6H PRN PRN Reason: Nausea Stop: 11/30/21 05:31 Pantoprazole Sodium (Pantoprazole 40 Mg Tab) 40 mg PO DAILYBB DAWIT Stop: 12/01/21 06:29 Last Admin: 11/15/21 05:47 Dose: 40 mg Documented by: Polyethylene Glycol (Polyethylene (Miralax) 17 Gm Pack) 17 gm PO DAILY PRN PRN Reason: Constipation Stop: 11/30/21 05:31 Raspberry (Raspberry Syrup 5 Ml Udp) 5 ml PO DAILY DAWIT Stop: 11/30/21 08:59 Last Admin: 11/15/21 09:09 Dose: 5 ml Documented by: Saccharomyces Boulardii (Saccharomyces Boulardii 250 Mg Cap) 250 mg PO DAILY DAWIT Stop: 12/05/21 08:59 Last Admin: 11/15/21 09:08 Dose: 250 mg Documented by: Sertraline HCl (Sertraline Hcl 100 Mg Tablet) 100 mg PO QAM [facility] Stop: 11/30/21 08:59 Last Admin: 11/15/21 09:07 Dose: 100 mg Documented by: Tramadol HCl (Tramadol Hcl 50 Mg Tablet) 50 mg PO Q4H PRN PRN Reason: Pain & Pre PT Stop: 12/03/21 14:53 Last Admin: 11/14/21 21:16 Dose: 50 mg Documented by: Umeclidinium/Vilanterol (Umeclidinium/Vilanterol 62.5/25mcg 7 Puffs/Inhaler) 1 puffs INH DAILY DAWIT Stop: 11/30/21 08:59 Last Admin: 11/15/21 09:08 Dose: 1 puffs Documented by: Vancomycin HCl (Vancomycin Hcl 125 Mg/2.5ml Soln) 125 mg PO DAILY DAWIT Stop: 11/30/21 08:59 Last Admin: 11/15/21 09:21 Dose: 125 mg Documented by: Vitamin D (Cholecalciferol 1,000 Units 25 Mcg Tab) 2,000 units PO QAM DAWIT Stop: 11/30/21 08:59 Last Admin: 11/15/21 09:08 Dose: 2,000 units Documented by: (1) Hip fracture, left Encounter type: initial encounter Fracture type: closed Qualified Code(s): S72.002A - Fracture of unspecified part of neck of left femur, initial encounter for closed fracture (2) COPD (chronic obstructive pulmonary disease) COPD type: unspecified COPD Qualified Code(s): J44.9 - Chronic obstructive pulmonary disease, unspecified (3) Bronchiectasis Bronchiectasis type: uncomplicated Qualified Code(s): J47.9 - Bronchiectasis, uncomplicated (4) Hypothyroid Hypothyroidism type: unspecified Qualified Code(s): E03.9 - Hypothyroidism, unspecified (5) Dementia Dementia type: Alzheimer's disease Alzheimer's disease onset: unspecified ons et Dementia behavioral disturbance: without behavioral disturbance Qualified Code(s): G30.9 - Alzheimer's disease, unspecified; F02.80 - Dementia in other diseases classified elsewhere without behavioral disturbance (6) Depression Depression Type: major depressive disorder Major depression recurrence: unspecified whether recurrent Active/Remission status: remission status unspecified Qualified Code(s): F32.9 - Major depressive disorder, single episode, unspecified
[2021-11-15] MEDS: MAGNESIUM OXIDE 400 MG TAB PO SCH (16:56)
[2021-11-15] MEDS: CALCIUM CARBONATE 500 MG CHEWABLE TAB PO SCH (16:56)
[2021-11-15] MEDS: clonazePAM 0.5 MG TAB PO SCH (20:56)
[2021-11-15] MEDS: ATORVASTATIN 20 MG TAB PO SCH (20:57)
[2021-11-15] MEDS: LATANOPROST 0.005% OP SOLN 2.5 ML BTL OP SCH (20:58)
[2021-11-15] MEDS: traMADol HCL 50 MG TABLET PO PRN (21:53)
[2021-11-16] MEDS: traMADol HCL 50 MG TABLET PO PRN ×2 (06:04→20:03)
[2021-11-16] MEDS: PANTOprazole 40 MG TAB PO SCH (06:05)
[2021-11-16] MEDS: LEVOTHYROXINE SODIUM 112 MCG TABLET PO SCH (06:05)
[2021-11-16] MEDS: ACETAMINOPHEN 325 MG TAB PO SCH ×3 (06:05→20:03)
--- NOTE | 2021-11-16 08:25 | Hospitalist Progress Note ---
Date of Service November 16, 2021 Assessment & Plan (1) Non-ST elevation (NSTEMI) myocardial infarction: Plan: Finished heparin drip for 48 hours. TTE with moderate apical lateral wall motion abnormalities Metoplol 12.5mg BID -aspirin 81mg, started statin. No plavix per Cardiology (2) Hip fracture, left: Plan: s/p left hemiarthroplasty 11/03 -Pain control: Scheduled tylenol 650mg TID, started lidoderm patch and gabapentin 100mg BID 11/07, PRN tramadol for breakthrough pain (3) COPD (chronic obstructive pulmonary disease): Plan: History of chronic respiratory failure secondary to COPD and bronchiectasis on home oxygen No acute exacerbation of her symptoms (4) Bronchiectasis: (5) Hypothyroid: Plan: Continue supplement (6) Dementia: Plan: Dementia which has been progressing as per the outpatient neurological note Delirium recently with UTI and acute illness, delirium now resolved (7) Depression: Plan: No acute symptoms Plan: Pseudomonas UTI -s/p ceftriaxone. Finished 5 day course of Cefepime on 11/10/21 DVT prophylaxis -aspirin SCD and TEDS per ortho CODE STATUS DNR/DNI Disposition -Patient is medically stable for discharge, CM involved Admission and Anticipated Discharge Date Admission Date: October 31, 2021 Subjective Patient seen in follow-up of NSTEMI, hip fracture repair, UTI Currently patient is sitting up in bed, in no acute distress Denies any fevers, chills, chest pain, shortness of breath, abdominal pain, difficulty voiding, or burning with urination No nausea vomiting or diarrhea Review of Systems Review of Systems: All systems reviewed & are unremarkable except as noted in Subjective Physical Exam Physical Exam: Physical Exam: Elderly female, si tting up in bed, i n no acute distres s Respiratory: Breathing comforta elo on 2L NC, no w heezing/rhonchi/ra les Cardiovascular:J Regular rate and r hythm, no murmurs/ rubs Gastrointestinal ( Abdomen): soft, non tender Musculoskeletal: No edema, no cyano sis Neurologic: awake, alert, spee ch fluent, spontan eously moving extr emities, able to a nswer some questio ns appropriately, history of dementi a Results & Data Results & Data ([facility]) Vital Signs (Past 12 Hours) Vital Signs Temp Pulse Resp BP Pulse Ox 11/16/21 07:34 36.8 C 77 16 121/63 100 11/15/21 20:59 37 C 88 16 119/52 L 99 Medications Administered Current Inpatient Medications Acetaminophen (Acetaminophen 325 Mg Tab) 650 mg PO Q8 [facility] Stop: 12/02/21 13:59 Last Admin: 11/16/21 06:05 Dose: 650 mg Documented by: Albuterol (Albuterol 0.083% Nebu Soln 3 Ml Vial) 2.5 mg INH QID PRN; Protocol PRN Reason: Shortness Of Breath Or Wheezing Stop: 11/30/21 08:05 Last Admin: 11/06/21 00:23 Dose: 2.5 mg Documented by: Aspirin (Aspirin 81 Mg Ectab) 81 mg PO QAM [facility] Stop: 12/06/21 08:59 Last Admin: 11/15/21 09:08 Dose: 81 mg Documented by: Atorvastatin Calcium (Atorvastatin 20 Mg Tab) 20 mg PO HS [facility] Stop: 12/05/21 20:59 Last Admin: 11/15/21 20:57 Dose: 20 mg Documented by: Azelastine HCl (Azelastine Hcl 0.1% Nasal 200 Sprays/27,400 Mcg Btl) 2 sprays NA BIDM [facility] Stop: 11/30/21 16:59 Last Admin: 11/15/21 16:56 Dose: 2 sprays Documented by: Bisacodyl (Bisacodyl 10 Mg Supp) 10 mg [place] DAILY PRN PRN Reason: Constipation Stop: 12/03/21 14:53 Calcium Carbonate (Calcium Carbonate 500 Mg Chewable Tab) 500 mg PO QDD DAWIT Stop: 11/30/21 16:29 Last Admin: 11/15/21 16:56 Dose: 500 mg Documented by: Clonazepam (Clonazepam 0.5 Mg Tab) 0.5 mg PO HS [facility] Stop: 11/30/21 20:59 Last Admin: 11/15/21 20:56 Dose: 0.5 mg Documented by: Docusate Sodium (Docusate Sodium 100 Mg Cap) 100 mg PO BID DAWIT Stop: 12/03/21 20:59 Last Admin: 11/15/21 20:56 Dose: 100 mg Documented by: Donepezil HCl (Donepezil Hcl 5 Mg Tab) 5 mg PO DAILY [facility] Stop: 11/30/21 08:59 Last Admin: 11/15/21 09:08 Dose: 5 mg Documented by: Famotidine (Famotidine 20 Mg Tab) 20 mg PO BID [facility] Stop: 11/30/21 08:59 Last Admin: 11/15/21 20:57 Dose: 20 mg Documented by: Folic Acid (Folic Acid 1 Mg Tab) 1 mg PO DAILY DAIWT Stop: 11/30/21 08:59 Last Admin: 11/15/21 09:08 Dose: 1 mg Documented by: Gabapentin (Gabapentin 100 Mg Cap) 100 mg PO BID DAW[facility] Stop: 12/07/21 20:59 Last Admin: 11/15/21 20:57 Dose: 100 mg Documented by: Lactobacillus Acidophilus (Advanced Probiotic 1250 Mg Capsule) 2 cap PO DAILY DA[facility] Stop: 12/09/21 08:59 Last Admin: 11/15/21 09:08 Dose: 2 cap Documented by: Latanoprost (Latanoprost 0.005% Op Soln 2.5 Ml Btl) 1 drops OP PM DAWIT Stop: 11/30/21 20:59 Last Admin: 11/15/21 20:58 Dose: 1 drops Documented by: Levothyroxine Sodium (Levothyroxine Sodium 112 Mcg Tablet) 112 mcg PO DAILYBB [facility] Stop: 11/30/21 08:59 Last Admin: 11/16/21 06:05 Dose: 112 mcg Documented by: Lidocaine (Lidocaine 5% 1 Patch) 1 patch TD QAM [facility] Stop: 12/07/21 16:44 Last Admin: 11/15/21 09:09 Dose: 1 patch Documented by: Magnesium Hydroxide (Magnesium Hydroxide Susp 30 Ml Udc) 30 ml PO Q6H PRN PRN Reason: Constipation Stop: 12/03/21 14:53 Magnesium Oxide (Magnesium Oxide 400 Mg Tab) 400 mg PO QDD [facility] Stop: 11/30/21 16:29 Last Admin: 11/15/21 16:56 Dose: 400 mg Documented by: Metoprolol Tartrate (Metoprolol Tartrate 25 Mg Tab) 25 mg PO BID DAWIT Stop: 12/04/21 20:59 Last Admin: 11/15/21 20:57 Dose: 25 mg Documented by: Miscellaneous (Remove Lidoderm Patch) 1 ea N/A DAILY@2100 [facility] Stop: 12/07/21 22:59 Last Admin: 11/15/21 20:58 Dose: 1 ea Documented by: Multivitamins (Multivitamin Tab) 1 tab PO QAM [facility] Stop: 12/04/21 08:59 Last Admin: 11/15/21 09:08 Dose: 1 tab Documented by: Naloxone HCl (Naloxone Hcl 0.4 Mg/1 Ml Vial/Carp) 0.1 mg IV Q5M PRN PRN Reason: Oversedation/Resp Depression Stop: 12/03/21 14:53 Ondansetron HCl (Ondansetron Inj 2 Mg/Ml 2 Ml Vial) 4 mg IV Q6H PRN PRN Reason: Nausea Stop: 11/30/21 05:31 Pantoprazole Sodium (Pantoprazole 40 Mg Tab) 40 mg PO DAILYBB [facility] Stop: 12/01/21 06:29 Last Admin: 11/16/21 06:05 Dose: 40 mg Documented by: Polyethylene Glycol (Polyethylene (Miralax) 17 Gm Pack) 17 gm PO DAILY PRN PRN Reason: Constipation Stop: 11/30/21 05:31 Raspberry (Raspberry Syrup 5 Ml Udp) 5 ml PO DAILY DA[facility] Stop: 11/30/21 08:59 Last Admin: 11/15/21 09:09 Dose: 5 ml Documented by: Saccharomyces Boulardii (Saccharomyces Boulardii 250 Mg Cap) 250 mg PO DAILY DA[facility] Stop: 12/05/21 08:59 Last Admin: 11/15/21 09:08 Dose: 250 mg Documented by: Sertraline HCl (Sertraline Hcl 100 Mg Tablet) 100 mg PO QAM [facility] Stop: 11/30/21 08:59 Last Admin: 11/15/21 09:07 Dose: 100 mg Documented by: Tramadol HCl (Tramadol Hcl 50 Mg Tablet) 50 mg PO Q4H PRN PRN Reason: Pain & Pre PT Stop: 12/03/21 14:53 Last Admin: 11/16/21 06:04 Dose: 50 mg Documented by: Umeclidinium/Vilanterol (Umeclidinium/Vilanterol 62.5/25mcg 7 Puffs/Inhaler) 1 puffs INH DAILY [facility] Stop: 11/30/21 08:59 Last Admin: 11/15/21 09:08 Dose: 1 puffs Documented by: Vancomycin HCl (Vancomycin Hcl 125 Mg/2.5ml Soln) 125 mg PO DAILY [facility] Stop: 11/30/21 08:59 Last Admin: 11/15/21 09:21 Dose: 125 mg Documented by: Vitamin D (Cholecalciferol 1,000 Units 25 Mcg Tab) 2,000 units PO QAM [facility] Stop: 11/30/21 08:59 Last Admin: 11/15/21 09:08 Dose: 2,000 units Documented by: (1) Dementia Alzheimer's disease onset: unspecified onset Dementia behavioral disturbance: without behavioral disturbance Dementia type: Alzheimer's disease Qualified Code(s): G30.9 - Alzheimer's disease, unspecified; F02.80 - Dementia in other diseases classified elsewhere without behavioral disturbance (2) Depression Active/Remission status: remission status unspecified Depression Type: major depressive disorder Major depression recurrence: unspecified whether recurrent Qualified Code(s): F32.9 - Major depressive disorder, single episode, unspecified (3) Hypothyroid Hypothyroidism type: unspecified Qualified Code(s): E03.9 - Hypothyroidism, unspecified (4) COPD (chronic obstructive pulmonary disease) COPD type: unspecified COPD Qualified Code(s): J44.9 - Chronic obstructive pulmonary disease, unspecified (5) Bronchiectasis Bronchiectasis type: uncomplicated Qualified Code(s): J47.9 - Bronchiectasis, uncomplicated (6) Hip fracture, left Encounter type: initial encounter Fracture type: closed Qualified Code(s): S72.002A - Fracture of unspecified part of neck of left femur, initial encounter for closed fracture
[2021-11-16] MEDS: UMECLIDINIUM/VILANTEROL 62.5/25MCG 7 PUFFS/INHALER INH SCH (09:22)
[2021-11-16] MEDS: FOLIC ACID 1 MG TAB PO SCH (09:22)
[2021-11-16] MEDS: AZELASTINE HCL 0.1% NASAL 200 SPRAYS/27,400 MCG BTL SCH ×2 (09:22→17:48)
[2021-11-16] MEDS: METOPROLOL TARTRATE 25 MG TAB PO SCH ×2 (09:22→20:04)
[2021-11-16] MEDS: SERTRALINE HCL 100 MG TABLET PO SCH (09:22)
[2021-11-16] MEDS: DOCUSATE SODIUM 100 MG CAP PO SCH ×2 (09:23→20:04)
[2021-11-16] MEDS: ADVANCED PROBIOTIC 1250 MG CAPSULE PO SCH (09:23)
[2021-11-16] MEDS: FAMOTIDINE 20 MG TAB PO SCH ×2 (09:23→20:04)
[2021-11-16] MEDS: CHOLECALCIFEROL 1,000 UNITS 25 MCG TAB PO SCH (09:23)
[2021-11-16] MEDS: MULTIVITAMIN TAB PO SCH (09:23)
[2021-11-16] MEDS: SACCHAROMYCES BOULARDII 250 MG CAP PO SCH (09:23)
[2021-11-16] MEDS: GABAPENTIN 100 MG CAP PO SCH ×2 (09:23→20:04)
[2021-11-16] MEDS: LIDOCAINE 5% 1 PATCH TD SCH (09:23)
[2021-11-16] MEDS: ASPIRIN 81 MG ECTAB PO SCH (09:23)
[2021-11-16] MEDS: VANCOMYCIN HCL 125 MG/2.5ML SOLN PO SCH (09:23)
[2021-11-16] MEDS: RASPBERRY SYRUP 5 ML UDP PO SCH (09:23)
[2021-11-16] MEDS: DONEPEZIL HCL 5 MG TAB PO SCH (09:23)
[2021-11-16] MEDS: MAGNESIUM OXIDE 400 MG TAB PO SCH (17:48)
[2021-11-16] MEDS: CALCIUM CARBONATE 500 MG CHEWABLE TAB PO SCH (17:48)
[2021-11-16] MEDS: clonazePAM 0.5 MG TAB PO SCH (20:03)
[2021-11-16] MEDS: LATANOPROST 0.005% OP SOLN 2.5 ML BTL OP SCH (20:04)
[2021-11-16] MEDS: ATORVASTATIN 20 MG TAB PO SCH (20:04)
[2021-11-17] MEDS: traMADol HCL 50 MG TABLET PO PRN ×3 (05:18→22:47)
[2021-11-17] MEDS: PANTOprazole 40 MG TAB PO SCH (05:19)
[2021-11-17] MEDS: LEVOTHYROXINE SODIUM 112 MCG TABLET PO SCH (05:19)
[2021-11-17] MEDS: ACETAMINOPHEN 325 MG TAB PO SCH ×3 (05:19→21:09)
[2021-11-17] MEDS: SERTRALINE HCL 100 MG TABLET PO SCH (08:39)
[2021-11-17] MEDS: ASPIRIN 81 MG ECTAB PO SCH (08:39)
[2021-11-17] MEDS: AZELASTINE HCL 0.1% NASAL 200 SPRAYS/27,400 MCG BTL SCH ×2 (08:39→16:13)
[2021-11-17] MEDS: METOPROLOL TARTRATE 25 MG TAB PO SCH ×2 (08:39→21:04)
[2021-11-17] MEDS: SACCHAROMYCES BOULARDII 250 MG CAP PO SCH (08:39)
[2021-11-17] MEDS: CHOLECALCIFEROL 1,000 UNITS 25 MCG TAB PO SCH (08:40)
[2021-11-17] MEDS: DONEPEZIL HCL 5 MG TAB PO SCH (08:40)
[2021-11-17] MEDS: FOLIC ACID 1 MG TAB PO SCH (08:40)
[2021-11-17] MEDS: ADVANCED PROBIOTIC 1250 MG CAPSULE PO SCH (08:40)
[2021-11-17] MEDS: MULTIVITAMIN TAB PO SCH (08:40)
[2021-11-17] MEDS: GABAPENTIN 100 MG CAP PO SCH ×2 (08:40→20:33)
[2021-11-17] MEDS: LIDOCAINE 5% 1 PATCH TD SCH (08:40)
[2021-11-17] MEDS: DOCUSATE SODIUM 100 MG CAP PO SCH ×2 (08:40→20:55)
[2021-11-17] MEDS: UMECLIDINIUM/VILANTEROL 62.5/25MCG 7 PUFFS/INHALER INH SCH (08:41)
[2021-11-17] MEDS: RASPBERRY SYRUP 5 ML UDP PO SCH (08:42)
[2021-11-17] MEDS: VANCOMYCIN HCL 125 MG/2.5ML SOLN PO SCH (08:50)
[2021-11-17] MEDS: FAMOTIDINE 20 MG TAB PO SCH ×2 (08:50→20:55)
[2021-11-17] MEDS: CALCIUM CARBONATE 500 MG CHEWABLE TAB PO SCH (16:13)
[2021-11-17] MEDS: MAGNESIUM OXIDE 400 MG TAB PO SCH (16:13)
--- NOTE | 2021-11-17 19:32 | Hospitalist Progress Note ---
Date of Service November 17, 2021 Assessment & Plan (1) Non-ST elevation (NSTEMI) myocardial infarction: Plan: Finished heparin drip for 48 hours. TTE with moderate apical lateral wall motion abnormalities Metoplol 12.5mg BID -aspirin 81mg, started statin. No plavix per Cardiology (2) Hip fracture, left: Plan: s/p left hemiarthroplasty 11/03 -Pain control: Scheduled tylenol 650mg TID, started lidoderm patch and gabapentin 100mg BID 11/07, PRN tramadol for breakthrough pain (3) COPD (chronic obstructive pulmonary disease): Plan: History of chronic respiratory failure secondary to COPD and bronchiectasis on home oxygen No acute exacerbation of her symptoms (4) Bronchiectasis: (5) Hypothyroid: Plan: Continue supplement (6) Dementia: Plan: Dementia which has been progressing as per the outpatient neurological note Delirium recently with UTI and acute illness, delirium now resolved (7) Depression: Plan: No acute symptoms Plan: Pseudomonas UTI -s/p ceftriaxone. Finished 5 day course of Cefepime on 11/10/21 DVT prophylaxis -aspirin SCD and TEDS per ortho CODE STATUS DNR/DNI Disposition -Patient is medically stable for discharge, CM involved Admission and Anticipated Discharge Date Admission Date: October 31, 2021 Subjective no new issues. pain controlled. No fever, chills, chest pain, shortness of breath. Feels ready to go to rehab anytime. Physical Exam Physical Exam: General: Sitting comfortably in bed, not in distress, on NC HEENT: EOMI, ABILIO, MMM Chest: Clear breath sounds bilaterally, no wheezes or crackles CVS: Regular rate and rhythm, normal heart sounds, no murmur Abdomen: Soft, non tender, not distended, normal bowel sounds Neuro: Awake, alert, oriented, conversing ok Extremities: No edema Results & Data Results & Data ([facility]) Vital Signs (Past 12 Hours) Vital Signs Temp Pulse Resp BP BP Pulse Ox 11/17/21 15:32 36.5 C 78 16 109/55 L 100 11/17/21 07:38 36.5 C 76 16 129/66 100 Medications Administered Current Inpatient Medications Acetaminophen (Acetaminophen 325 Mg Tab) 650 mg PO Q8 [facility] Stop: 12/02/21 13:59 Last Admin: 11/17/21 14:34 Dose: 650 mg Documented by: Albuterol (Albuterol 0.083% Nebu Soln 3 Ml Vial) 2.5 mg INH QID PRN; Protocol PRN Reason: Shortness Of Breath Or Wheezing Stop: 11/30/21 08:05 Last Admin: 11/06/21 00:23 Dose: 2.5 mg Documented by: Aspirin (Aspirin 81 Mg Ectab) 81 mg PO QAM [facility] Stop: 12/06/21 08:59 Last Admin: 11/17/21 08:39 Dose: 81 mg Documented by: Atorvastatin Calcium (Atorvastatin 20 Mg Tab) 20 mg PO HS [facility] Stop: 12/05/21 20:59 Last Admin: 11/16/21 20:04 Dose: 20 mg Documented by: Azelastine HCl (Azelastine Hcl 0.1% Nasal 200 Sprays/27,400 Mcg Btl) 2 sprays NA BIDM [facility] Stop: 11/30/21 16:59 Last Admin: 11/17/21 16:13 Dose: 2 sprays Documented by: Bisacodyl (Bisacodyl 10 Mg Supp) 10 mg [place] DAILY PRN PRN Reason: Constipation Stop: 12/03/21 14:53 Calcium Carbonate (Calcium Carbonate 500 Mg Chewable Tab) 500 mg PO QDD [facility] Stop: 11/30/21 16:29 Last Admin: 11/17/21 16:13 Dose: 500 mg Documented by: Clonazepam (Clonazepam 0.5 Mg Tab) 0.5 mg PO HS [facility] Stop: 11/30/21 20:59 Last Admin: 11/16/21 20:03 Dose: 0.5 mg Documented by: Docusate Sodium (Docusate Sodium 100 Mg Cap) 100 mg PO BID [facility] Stop: 12/03/21 20:59 Last Admin: 11/17/21 08:40 Dose: 100 mg Documented by: Donepezil HCl (Donepezil Hcl 5 Mg Tab) 5 mg PO DAILY [facility] Stop: 11/30/21 08:59 Last Admin: 11/17/21 08:40 Dose: 5 mg Documented by: Famotidine (Famotidine 20 Mg Tab) 20 mg PO BID [facility] Stop: 11/30/21 08:59 Last Admin: 11/17/21 08:50 Dose: 20 mg Documented by: Folic Acid (Folic Acid 1 Mg Tab) 1 mg PO DAILY [facility] Stop: 11/30/21 08:59 Last Admin: 11/17/21 08:40 Dose: 1 mg Documented by: Gabapentin (Gabapentin 100 Mg Cap) 100 mg PO BID [facility] Stop: 12/07/21 20:59 Last Admin: 11/17/21 08:40 Dose: 100 mg Documented by: Lactobacillus Acidophilus (Advanced Probiotic 1250 Mg Capsule) 2 cap PO DAILY [facility] Stop: 12/09/21 08:59 Last Admin: 11/17/21 08:40 Dose: 2 cap Documented by: Latanoprost (Latanoprost 0.005% Op Soln 2.5 Ml Btl) 1 drops OP PM [facility] Stop: 11/30/21 20:59 Last Admin: 11/16/21 20:04 Dose: 1 drops Documented by: Levothyroxine Sodium (Levothyroxine Sodium 112 Mcg Tablet) 112 mcg PO DAILYBB [facility] Stop: 11/30/21 08:59 Last Admin: 11/17/21 05:19 Dose: 112 mcg Documented by: Lidocaine (Lidocaine 5% 1 Patch) 1 patch TD QAM [facility] Stop: 12/07/21 16:44 Last Admin: 11/17/21 08:40 Dose: 1 patch Documented by: Magnesium Hydroxide (Magnesium Hydroxide Susp 30 Ml Udc) 30 ml PO Q6H PRN PRN Reason: Constipation Stop: 12/03/21 14:53 Magnesium Oxide (Magnesium Oxide 400 Mg Tab) 400 mg PO QDD [facility] Stop: 11/30/21 16:29 Last Admin: 11/17/21 16:13 Dose: 400 mg Documented by: Metoprolol Tartrate (Metoprolol Tartrate 25 Mg Tab) 25 mg PO BID [facility] Stop: 12/04/21 20:59 Last Admin: 11/17/21 08:39 Dose: 25 mg Documented by: Miscellaneous (Remove Lidoderm Patch) 1 ea N/A DAILY@2100 [facility] Stop: 12/07/21 22:59 Last Admin: 11/16/21 20:04 Dose: 1 ea Documented by: Multivitamins (Multivitamin Tab) 1 tab PO QAM [facility] Stop: 12/04/21 08:59 Last Admin: 11/17/21 08:40 Dose: 1 tab Documented by: Naloxone HCl (Naloxone Hcl 0.4 Mg/1 Ml Vial/Carp) 0.1 mg IV Q5M PRN PRN Reason: Oversedation/Resp Depression Stop: 12/03/21 14:53 Ondansetron HCl (Ondansetron Inj 2 Mg/Ml 2 Ml Vial) 4 mg IV Q6H PRN PRN Reason: Nausea Stop: 11/30/21 05:31 Pantoprazole Sodium (Pantoprazole 40 Mg Tab) 40 mg PO DAILYBB [facility] Stop: 12/01/21 06:29 Last Admin: 11/17/21 05:19 Dose: 40 mg Documented by: Polyethylene Glycol (Polyethylene (Miralax) 17 Gm Pack) 17 gm PO DAILY PRN PRN Reason: Constipation Stop: 11/30/21 05:31 Raspberry (Raspberry Syrup 5 Ml Udp) 5 ml PO DAILY [facility] Stop: 11/30/21 08:59 Last Admin: 11/17/21 08:42 Dose: 5 ml Documented by: Saccharomyces Boulardii (Saccharomyces Boulardii 250 Mg Cap) 250 mg PO DAILY [facility] Stop: 12/05/21 08:59 Last Admin: 11/17/21 08:39 Dose: 250 mg Documented by: Sertraline HCl (Sertraline Hcl 100 Mg Tablet) 100 mg PO QAM [facility] Stop: 11/30/21 08:59 Last Admin: 11/17/21 08:39 Dose: 100 mg Documented by: Tramadol HCl (Tramadol Hcl 50 Mg Tablet) 50 mg PO Q4H PRN PRN Reason: Pain & Pre PT Stop: 12/03/21 14:53 Last Admin: 11/17/21 16:11 Dose: 50 mg Documented by: Umeclidinium/Vilanterol (Umeclidinium/Vilanterol 62.5/25mcg 7 Puffs/Inhaler) 1 puffs INH DAILY [facility] Stop: 11/30/21 08:59 Last Admin: 11/17/21 08:41 Dose: 1 puffs Documented by: Vancomycin HCl (Vancomycin Hcl 125 Mg/2.5ml Soln) 125 mg PO DAILY [facility] Stop: 11/30/21 08:59 Last Admin: 11/17/21 08:50 Dose: 125 mg Documented by: Vitamin D (Cholecalciferol 1,000 Units 25 Mcg Tab) 2,000 units PO QAM [facility] Stop: 11/30/21 08:59 Last Admin: 11/17/21 08:40 Dose: 2,000 units Documented by: (1) Hip fracture, left Encounter type: initial encounter Fracture type: closed Qualified Code(s): S72.002A - Fracture of unspecified part of neck of left femur, initial encounter for closed fracture (2) COPD (chronic obstructive pulmonary disease) COPD type: unspecified COPD Qualified Code(s): J44.9 - Chronic obstructive pulmonary disease, unspecified (3) Bronchiectasis Bronchiectasis type: uncomplicated Qualified Code(s): J47.9 - Bronchiectasis, uncomplicated (4) Hypothyroid Hypothyroidism type: unspecified Qualified Code(s): E03.9 - Hypothyroidism, unspecified (5) Dementia Dementia type: Alzheimer's disease Alzheimer's disease onset: unspecified onset Dementia behavioral disturbance: without behavioral disturbance Qualified Code(s): G30.9 - Alzheimer's disease, unspecified; F02.80 - Dementia in other diseases classified elsewhere without behavioral disturbance (6) Depression Depression Type: major depressive disorder Major depression recurrence: unspecified whether recurrent Active/Remission status: remission status unspecified Qualified Code(s): F32.9 - Major depressive disorder, single episode, unspecified
[2021-11-17] MEDS: ATORVASTATIN 20 MG TAB PO SCH (20:32)
[2021-11-17] MEDS: clonazePAM 0.5 MG TAB PO SCH (20:55)
[2021-11-17] MEDS: LATANOPROST 0.005% OP SOLN 2.5 ML BTL OP SCH (21:07)
[2021-11-18] MEDS: LEVOTHYROXINE SODIUM 112 MCG TABLET PO SCH (05:37)
[2021-11-18] MEDS: PANTOprazole 40 MG TAB PO SCH (05:37)
[2021-11-18] MEDS: ACETAMINOPHEN 325 MG TAB PO SCH ×3 (05:38→22:37)
[2021-11-18 05:50] LABS: Hematocrit (blood only) 27.6 % (37-47); Hemoglobin 8.2 g/dL (12.0-16.0); Mean Corpuscular Hemoglobin 27.4 pg (25-34); Mean Corpuscular Hgb Conc 29.7 g/dL (32-36); Mean Corpuscular Volume 92.3 fL (80-100); Platelet Count 667 K/uL (130-400); RDW Coefficient of Variation 13.6 % (11.5-14.5); RDW Standard Deviation 46.1 fL (36.4-46.3); Red Blood Count 2.99 M/uL (4.2-5.4); White Blood Count 10.76 K/uL (4.8-10.8)
[2021-11-18 06:10] LABS: BUN Creatinine Ratio 31.8 (10-20); Calcium 9.3 mg/dl (8.5-10.1); Creatinine Clr Calc Pharmacy 27.1 ml/min; Est GFR (African American) 44.4 ml/min; Est GFR (Non-African American) 38.3 ml/min; Magnesium 2.1 mg/dl (1.7-2.4); Phosphorus 3.4 mg/dl (2.5-4.9); Potassium 5.2 mmol/L (3.5-5.1)
[2021-11-18] MEDS: VANCOMYCIN HCL 125 MG/2.5ML SOLN PO SCH (09:26)
[2021-11-18] MEDS: UMECLIDINIUM/VILANTEROL 62.5/25MCG 7 PUFFS/INHALER INH SCH (09:26)
[2021-11-18] MEDS: RASPBERRY SYRUP 5 ML UDP PO SCH (09:27)
[2021-11-18] MEDS: AZELASTINE HCL 0.1% NASAL 200 SPRAYS/27,400 MCG BTL SCH ×2 (09:27→17:48)
[2021-11-18] MEDS: GABAPENTIN 100 MG CAP PO SCH ×2 (09:28→19:24)
[2021-11-18] MEDS: CHOLECALCIFEROL 1,000 UNITS 25 MCG TAB PO SCH (09:28)
[2021-11-18] MEDS: ASPIRIN 81 MG ECTAB PO SCH ×2 (09:28→19:23)
[2021-11-18] MEDS: FOLIC ACID 1 MG TAB PO SCH (09:29)
[2021-11-18] MEDS: DONEPEZIL HCL 5 MG TAB PO SCH (09:29)
[2021-11-18] MEDS: METOPROLOL TARTRATE 25 MG TAB PO SCH ×2 (09:29→19:23)
[2021-11-18] MEDS: ADVANCED PROBIOTIC 1250 MG CAPSULE PO SCH (09:29)
[2021-11-18] MEDS: MULTIVITAMIN TAB PO SCH (09:30)
[2021-11-18] MEDS: SERTRALINE HCL 100 MG TABLET PO SCH (09:30)
[2021-11-18] MEDS: SACCHAROMYCES BOULARDII 250 MG CAP PO SCH (09:30)
[2021-11-18] MEDS: DOCUSATE SODIUM 100 MG CAP PO SCH ×2 (09:31→19:25)
[2021-11-18] MEDS: LIDOCAINE 5% 1 PATCH TD SCH (09:31)
[2021-11-18] MEDS: FAMOTIDINE 20 MG TAB PO SCH ×2 (09:35→19:23)
[2021-11-18] MEDS: traMADol HCL 50 MG TABLET PO PRN ×2 (12:18→23:12)
[2021-11-18] MEDS: CALCIUM CARBONATE 500 MG CHEWABLE TAB PO SCH (17:48)
[2021-11-18] MEDS: MAGNESIUM OXIDE 400 MG TAB PO SCH (17:48)
--- NOTE | 2021-11-18 18:40 | Hospitalist Progress Note ---
Date of Service November 18, 2021 Assessment & Plan (1) Non-ST elevation (NSTEMI) myocardial infarction: Plan: Finished heparin drip for 48 hours. TTE with moderate apical lateral wall motion abnormalities On ASA, lopressor, lipitor. No DAPT per cardio to decrease bleeding risk (2) Hip fracture, left: Plan: s/p left hemiarthroplasty 11/03 ASA bid for DVT prophylaxis per ortho. On PPI for GI prophylaxis -Pain control: Scheduled tylenol 650mg TID, started lidoderm patch and gabapentin 100mg BID 11/07, PRN tramadol for breakthrough pain (3) COPD (chronic obstructive pulmonary disease): Plan: History of chronic respiratory failure secondary to COPD and bronchiectasis on home oxygen No acute exacerbation of her symptoms (4) Bronchiectasis: (5) Hypothyroid: Plan: Continue supplement (6) Dementia: Plan: Dementia which has been progressing as per the outpatient neurological note Delirium recently with UTI and acute illness, delirium now resolved (7) Depression: Plan: No acute symptoms Plan: Pseudomonas UTI -s/p ceftriaxone. Finished 5 day course of Cefepime on 11/10/21 DVT prophylaxis- ASA bid Disposition- Stable for discharge. Patient was supposed to be discharged today to [facility] and was excited for discharge. Discharge order placed but later notified by CM that there is no ride, hence discharge order cancelled per request. Updated daughter at bedside Admission and Anticipated Discharge Date Admission Date: October 31, 2021 Subjective Feels good and ready to go to rehab. Had some left knee pain while transferring out. No fever, chills, chest pain, shortness of breath, nausea, vomiting. Normal oral intake. Denies bowel bladder issues. Physical Exam Physical Exam: General: Sitting comfortably in chair, not in distress, on NC HEENT: EOMI, ABILIO, MMM Chest: Clear breath sounds bilaterally, no wheezes or crackles CVS: Regular rate and rhythm, normal heart sounds, no murmur Abdomen: Soft, non tender, not distended, normal bowel sounds Neuro: Awake, alert, oriented, conversing ok Extremities: No edema. Left knee with mild tenderness, no rash, erythema or warmth. Results & Data Results & Data ([facility]) Vital Signs (Past 12 Hours) Vital Signs Temp Pulse Resp BP BP Pulse Ox 11/18/21 18:31 36.9 C 86 20 109/58 L 129/66 96 11/18/21 15:09 36.9 C 86 20 109/58 L 96 11/18/21 12:50 36.7 C 75 18 138/70 129/66 100 11/18/21 07:13 36.7 C 75 18 138/70 100 Laboratory Results Short CBC 11/18/21 Range/Units 05:35 WBC 10.76 (4.8-10.8) K/uL Hgb 8.2 L (12.0-16.0) g/dL Hct 27.6 L (37-47) % Plt Count 667 H (130-400) K/uL BMP 11/18/21 05:35 Sodium 138 Potassium 5.2 H Chloride 102 Carbon Dioxide 33 H BUN 42 H Creatinine 1.32 H Glucose 92 Calcium 9.3 Medications Administered Current Inpatient Medications Acetaminophen (Acetaminophen 325 Mg Tab) 650 mg PO Q8 [facility] Stop: 12/02/21 13:59 Last Admin: 11/18/21 14:55 Dose: 650 mg Documented by: Albuterol (Albuterol 0.083% Nebu Soln 3 Ml Vial) 2.5 mg INH QID PRN; Protocol PRN Reason: Shortness Of Breath Or Wheezing Stop: 11/30/21 08:05 Last Admin: 11/06/21 00:23 Dose: 2.5 mg Documented by: Aspirin (Aspirin 81 Mg Ectab) 81 mg PO QAM [facility] Stop: 12/06/21 08:59 Last Admin: 11/18/21 09:28 Dose: 81 mg Documented by: Atorvastatin Calcium (Atorvastatin 20 Mg Tab) 20 mg PO HS [facility] Stop: 12/05/21 20:59 Last Admin: 11/17/21 20:32 Dose: 20 mg Documented by: Azelastine HCl (Azelastine Hcl 0.1% Nasal 200 Sprays/27,400 Mcg Btl) 2 sprays NA BIDM [facility] Stop: 11/30/21 16:59 Last Admin: 11/18/21 17:48 Dose: 2 sprays Documented by: Bisacodyl (Bisacodyl 10 Mg Supp) 10 mg NC DAILY PRN PRN Reason: Constipation Stop: 12/03/21 14:53 Calcium Carbonate (Calcium Carbonate 500 Mg Chewable Tab) 500 mg PO QDD [facility] Stop: 11/30/21 16:29 Last Admin: 11/18/21 17:48 Dose: 500 mg Documented by: Clonazepam (Clonazepam 0.5 Mg Tab) 0.5 mg PO HS DAWIT Stop: 11/30/21 20:59 Last Admin: 11/17/21 20:55 Dose: 0.5 mg Documented by: Docusate Sodium (Docusate Sodium 100 Mg Cap) 100 mg PO BID DAWIT Stop: 12/03/21 20:59 Last Admin: 11/18/21 09:31 Dose: Not Given Documented by: Donepezil HCl (Donepezil Hcl 5 Mg Tab) 5 mg PO DAILY DAWIT Stop: 11/30/21 08:59 Last Admin: 11/18/21 09:29 Dose: 5 mg Documented by: Famotidine (Famotidine 20 Mg Tab) 20 mg PO BID DAWIT Stop: 11/30/21 08:59 Last Admin: 11/18/21 09:35 Dose: 20 mg Documented by: Folic Acid (Folic Acid 1 Mg Tab) 1 mg PO DAILY DAWIT Stop: 11/30/21 08:59 Last Admin: 11/18/21 09:29 Dose: 1 mg Documented by: Gabapentin (Gabapentin 100 Mg Cap) 100 mg PO BID DAWIT Stop: 12/07/21 20:59 Last Admin: 11/18/21 09:28 Dose: 100 mg Documented by: Lactobacillus Acidophilus (Advanced Probiotic 1250 Mg Capsule) 2 cap PO DAILY DAWIT Stop: 12/09/21 08:59 Last Admin: 11/18/21 09:29 Dose: 2 cap Documented by: Latanoprost (Latanoprost 0.005% Op Soln 2.5 Ml Btl) 1 drops OP PM DAWIT Stop: 11/30/21 20:59 Last Admin: 11/17/21 21:07 Dose: 1 drops Documented by: Levothyroxine Sodium (Levothyroxine Sodium 112 Mcg Tablet) 112 mcg PO DAILYBB DAWIT Stop: 11/30/21 08:59 Last Admin: 11/18/21 05:37 Dose: 112 mcg Documented by: Lidocaine (Lidocaine 5% 1 Patch) 1 patch TD QAM DAWIT Stop: 12/07/21 16:44 Last Admin: 11/18/21 09:31 Dose: 1 patch Documented by: Magnesium Hydroxide (Magnesium Hydroxide Susp 30 Ml Udc) 30 ml PO Q6H PRN PRN Reason: Constipation Stop: 12/03/21 14:53 Magnesium Oxide (Magnesium Oxide 400 Mg Tab) 400 mg PO QDD [facility] Stop: 11/30/21 16:29 Last Admin: 11/18/21 17:48 Dose: 400 mg Documented by: Metoprolol Tartrate (Metoprolol Tartrate 25 Mg Tab) 25 mg PO BID [facility] Stop: 12/04/21 20:59 Last Admin: 11/18/21 09:29 Dose: 25 mg Documented by: Miscellaneous (Remove Lidoderm Patch) 1 ea N/A DAILY@2100 [facility] Stop: 12/07/21 22:59 Last Admin: 11/17/21 20:55 Dose: 1 ea Documented by: Multivitamins (Multivitamin Tab) 1 tab PO QAM [facility] Stop: 12/04/21 08:59 Last Admin: 11/18/21 09:30 Dose: 1 tab Documented by: Naloxone HCl (Naloxone Hcl 0.4 Mg/1 Ml Vial/Carp) 0.1 mg IV Q5M PRN PRN Reason: Oversedation/Resp Depression Stop: 12/03/21 14:53 Ondansetron HCl (Ondansetron Inj 2 Mg/Ml 2 Ml Vial) 4 mg IV Q6H PRN PRN Reason: Nausea Stop: 11/30/21 05:31 Pantoprazole Sodium (Pantoprazole 40 Mg Tab) 40 mg PO DAILYBB [facility] Stop: 12/01/21 06:29 Last Admin: 11/18/21 05:37 Dose: 40 mg Documented by: Polyethylene Glycol (Polyethylene (Miralax) 17 Gm Pack) 17 gm PO DAILY PRN PRN Reason: Constipation Stop: 11/30/21 05:31 Raspberry (Raspberry Syrup 5 Ml Udp) 5 ml PO DAILY [facility] Stop: 11/30/21 08:59 Last Admin: 11/18/21 09:27 Dose: 5 ml Documented by: Saccharomyces Boulardii (Saccharomyces Boulardii 250 Mg Cap) 250 mg PO DAILY [facility] Stop: 12/05/21 08:59 Last Admin: 11/18/21 09:30 Dose: 250 mg Documented by: Sertraline HCl (Sertraline Hcl 100 Mg Tablet) 100 mg PO QAM [facility] Stop: 11/30/21 08:59 Last Admin: 11/18/21 09:30 Dose: 100 mg Documented by: Tramadol HCl (Tramadol Hcl 50 Mg Tablet) 50 mg PO Q4H PRN PRN Reason: Pain & Pre PT Stop: 12/03/21 14:53 Last Admin: 11/18/21 12:18 Dose: 50 mg Documented by: Umeclidinium/Vilanterol (Umeclidinium/Vilanterol 62.5/25mcg 7 Puffs/Inhaler) 1 puffs INH DAILY DAWIT Stop: 11/30/21 08:59 Last Admin: 11/18/21 09:26 Dose: 1 puffs Documented by: Vancomycin HCl (Vancomycin Hcl 125 Mg/2.5ml Soln) 125 mg PO DAILY DAWIT Stop: 11/30/21 08:59 Last Admin: 11/18/21 09:26 Dose: 125 mg Documented by: Vitamin D (Cholecalciferol 1,000 Units 25 Mcg Tab) 2,000 units PO QAM DAWIT Stop: 11/30/21 08:59 Last Admin: 11/18/21 09:28 Dose: 2,000 units Documented by: (1) Hip fracture, left Encounter type: initial encounter Fracture type: closed Qualified Code(s): S72.002A - Fracture of unspecified part of neck of left femur, initial encounter for closed fracture (2) COPD (chronic obstructive pulmonary disease) COPD type: unspecified COPD Qualified Code(s): J44.9 - Chronic obstructive pulmonary disease, unspecified (3) Bronchiectasis Bronchiectasis type: uncomplicated Qualified Code(s): J47.9 - Bronchiectasis, uncomplicated (4) Hypothyroid Hypothyroidism type: unspecified Qualified Code(s): E03.9 - Hypothyroidism, unspecified (5) Dementia Dementia type: Alzheimer's disease Alzheimer's disease onset: unspecified onset Dementia behavioral disturbance: without behavioral disturbance Qualified Code(s): G30.9 - Alzheimer's disease, unspecified; F02.80 - Dementia in other diseases classified elsewhere without behavioral disturbance (6) Depression Depression Type: major depressive disorder Major depression recurrence: unspecified whether recurrent Active/Remission status: remission status unspecified Qualified Code(s): F32.9 - Major depressive disorder, single episode, unspecified
[2021-11-18] MEDS: clonazePAM 0.5 MG TAB PO SCH (19:23)
[2021-11-18] MEDS: ATORVASTATIN 20 MG TAB PO SCH (19:25)
[2021-11-18] MEDS: LATANOPROST 0.005% OP SOLN 2.5 ML BTL OP SCH (19:25)
[2021-11-19] MEDS: ACETAMINOPHEN 325 MG TAB PO SCH ×3 (05:37→22:21)
[2021-11-19] MEDS: PANTOprazole 40 MG TAB PO SCH (05:37)
[2021-11-19] MEDS: LEVOTHYROXINE SODIUM 112 MCG TABLET PO SCH (05:37)
[2021-11-19 07:23] LABS: Basophils # (auto) 0.03 K/uL (0-0.2); Basophils % (auto) 0.3 %; Eosinophils # (auto) 0.52 K/uL (0-0.5); Eosinophils % (auto) 4.7 %; Hematocrit (blood only) 27.1 % (37-47); Hemoglobin 8.2 g/dL (12.0-16.0); Immature Granulocytes # (auto) 0.03 K/uL (0.00-0.02); Immature Granulocytes % (auto) 0.3 %; Lymphocytes # (auto) 1.37 K/uL (1.2-3.4); Lymphocytes % (auto) 12.5 %; Mean Corpuscular Hemoglobin 27.8 pg (25-34); Mean Corpuscular Hgb Conc 30.3 g/dL (32-36); Mean Corpuscular Volume 91.9 fL (80-100); Mean Platelet Volume 9.6 fL (7.4-10.4); Monocytes # (auto) 1.16 K/uL (0.11-0.59); Monocytes % (auto) 10.6 %; Neutrophils # (auto) 7.87 K/uL (1.4-6.5); Neutrophils % (auto) 71.6 %; Platelet Count 673 K/uL (130-400); RDW Coefficient of Variation 13.6 % (11.5-14.5); RDW Standard Deviation 45.5 fL (36.4-46.3); Red Blood Count 2.95 M/uL (4.2-5.4); White Blood Count 10.98 K/uL (4.8-10.8)
[2021-11-19 07:39] LABS: BUN Creatinine Ratio 43.3 (10-20); Calcium 9.1 mg/dl (8.5-10.1); Creatinine Clr Calc Pharmacy 34.3 ml/min; Est GFR (African American) 59.2 ml/min; Est GFR (Non-African American) 51.1 ml/min; Potassium 4.6 mmol/L (3.5-5.1)
[2021-11-19] MEDS: DOCUSATE SODIUM 100 MG CAP PO SCH ×2 (09:13→19:57)
[2021-11-19] MEDS: RASPBERRY SYRUP 5 ML UDP PO SCH (09:19)
[2021-11-19] MEDS: FAMOTIDINE 20 MG TAB PO SCH ×2 (09:19→19:56)
[2021-11-19] MEDS: VANCOMYCIN HCL 125 MG/2.5ML SOLN PO SCH (09:19)
[2021-11-19] MEDS: LIDOCAINE 5% 1 PATCH TD SCH (09:20)
[2021-11-19] MEDS: ASPIRIN 81 MG ECTAB PO SCH ×2 (09:20→19:56)
[2021-11-19] MEDS: FOLIC ACID 1 MG TAB PO SCH (09:21)
[2021-11-19] MEDS: DONEPEZIL HCL 5 MG TAB PO SCH (09:21)
[2021-11-19] MEDS: GABAPENTIN 100 MG CAP PO SCH ×2 (09:21→19:56)
[2021-11-19] MEDS: CHOLECALCIFEROL 1,000 UNITS 25 MCG TAB PO SCH (09:21)
[2021-11-19] MEDS: ADVANCED PROBIOTIC 1250 MG CAPSULE PO SCH (09:22)
[2021-11-19] MEDS: METOPROLOL TARTRATE 25 MG TAB PO SCH ×2 (09:22→19:56)
[2021-11-19] MEDS: AZELASTINE HCL 0.1% NASAL 200 SPRAYS/27,400 MCG BTL SCH ×2 (09:23→16:02)
[2021-11-19] MEDS: MULTIVITAMIN TAB PO SCH (09:23)
[2021-11-19] MEDS: SACCHAROMYCES BOULARDII 250 MG CAP PO SCH (09:23)
[2021-11-19] MEDS: UMECLIDINIUM/VILANTEROL 62.5/25MCG 7 PUFFS/INHALER INH SCH (09:23)
[2021-11-19] MEDS: SERTRALINE HCL 100 MG TABLET PO SCH (09:23)
[2021-11-19] MEDS: MAGNESIUM OXIDE 400 MG TAB PO SCH (16:03)
[2021-11-19] MEDS: CALCIUM CARBONATE 500 MG CHEWABLE TAB PO SCH (16:03)
--- NOTE | 2021-11-19 16:53 | Hospitalist Progress Note ---
Date of Service November 19, 2021 Assessment & Plan (1) Non-ST elevation (NSTEMI) myocardial infarction: Plan: Finished heparin drip for 48 hours. TTE with moderate apical lateral wall motion abnormalities On ASA, lopressor, lipitor. No DAPT per cardio to decrease bleeding risk (2) Hip fracture, left: Plan: s/p left hemiarthroplasty 11/03 ASA bid for DVT prophylaxis per ortho. On PPI for GI prophylaxis -Pain control: Scheduled tylenol 650mg TID, started lidoderm patch and gabapentin 100mg BID 11/07, PRN tramadol for breakthrough pain (3) COPD (chronic obstructive pulmonary disease): Plan: History of chronic respiratory failure secondary to COPD and bronchiectasis on home oxygen No acute exacerbation of her symptoms (4) Bronchiectasis: (5) Hypothyroid: Plan: Continue supplement (6) Dementia: Plan: Dementia which has been progressing as per the outpatient neurological note Delirium recently with UTI and acute illness, delirium now resolved (7) Depression: Plan: No acute symptoms Plan: Pseudomonas UTI -s/p ceftriaxone. Finished 5 day course of Cefepime on 11/10/21 Abnormal CBC Blood loss anemia- Hb has dropped from 13 on admission to 8.2 recently- but relatively stable over the past 10 days. Likely from blood loss as well as iron deficiency. No bleeding noted. Will likely benefit from iron infusion. Will check iron studies in am and then consider starting iron supplementation. WBC mildly elevated- will monitor- no signs of infection Plts elevated over past 2 days, unclear cause ?from iron deficiency. Will repeat in am along with iron studies. DVT prophylaxis- ASA bid Disposition- Discharge to [place] was cancelled yesterday as no transportation was available. Daughter says she has to sign a paper from her psychiatrist and send to [facility] on Sunday prior to transfer. Updated daughter at bedside Admission and Anticipated Discharge Date Admission Date: October 31, 2021 Subjective No new issues. No fever, chills, chest pain, shortness of breath, nausea, vomiting. Daughter at bedside- states she has to sign a paper from her psychiatrist and send it to [facility] on Sunday before she gets transferred. Physical Exam Physical Exam: General: Sitting comfortably in chair, not in distress, on NC HEENT: EOMI, ABILIO, MMM Chest: Clear breath sounds bilaterally, no wheezes or crackles CVS: Regular rate and rhythm, normal heart sounds, no murmur Abdomen: Soft, non tender, not distended, normal bowel sounds Neuro: Awake, alert, oriented, conversing well, non focal Extremities: No edema. Incision site clean dry intact. Results & Data Results & Data ([facility]) Vital Signs (Past 12 Hours) Vital Signs Temp Pulse Resp BP BP Pulse Ox 11/19/21 15:57 36.8 C 89 20 104/61 95 11/19/21 08:05 36.7 C 79 18 130/68 96 Laboratory Results Short CBC 11/19/21 Range/Units 06:00 WBC 10.98 H (4.8-10.8) K/uL Hgb 8.2 L (12.0-16.0) g/dL Hct 27.1 L (37-47) % Plt Count 673 H (130-400) K/uL BMP 11/19/21 06:00 Sodium 137 Potassium 4.6 Chloride 100 Carbon Dioxide 33 H BUN 45 H Creatinine 1.04 Glucose 94 Calcium 9.1 Medications Administered Current Inpatient Medications Acetaminophen (Acetaminophen 325 Mg Tab) 650 mg PO Q8 DAWIT Stop: 12/02/21 13:59 Last Admin: 11/19/21 16:02 Dose: 650 mg Documented by: Albuterol (Albuterol 0.083% Nebu Soln 3 Ml Vial) 2.5 mg INH QID PRN; Protocol PRN Reason: Shortness Of Breath Or Wheezing Stop: 11/30/21 08:05 Last Admin: 11/06/21 00:23 Dose: 2.5 mg Documented by: Aspirin (Aspirin 81 Mg Ectab) 81 mg PO BID DAWIT Stop: 12/18/21 20:59 Last Admin: 11/19/21 09:20 Dose: 81 mg Documented by: Atorvastatin Calcium (Atorvastatin 20 Mg Tab) 20 mg PO HS DAWIT Stop: 12/05/21 20:59 Last Admin: 11/18/21 19:25 Dose: 20 mg Documented by: Azelastine HCl (Azelastine Hcl 0.1% Nasal 200 Sprays/27,400 Mcg Btl) 2 sprays NA BIDM DAWIT Stop: 11/30/21 16:59 Last Admin: 11/19/21 16:02 Dose: 2 sprays Documented by: Bisacodyl (Bisacodyl 10 Mg Supp) 10 mg [place] DAILY PRN PRN Reason: Constipation Stop: 12/03/21 14:53 Calcium Carbonate (Calcium Carbonate 500 Mg Chewable Tab) 500 mg PO QDD DAWIT Stop: 11/30/21 16:29 Last Admin: 11/19/21 16:03 Dose: 500 mg Documented by: Clonazepam (Clonazepam 0.5 Mg Tab) 0.5 mg PO HS DAWIT Stop: 11/30/21 20:59 Last Admin: 11/18/21 19:23 Dose: 0.5 mg Documented by: Docusate Sodium (Docusate Sodium 100 Mg Cap) 100 mg PO BID DAWIT Stop: 12/03/21 20:59 Last Admin: 11/19/21 09:13 Dose: Not Given Documented by: Donepezil HCl (Donepezil Hcl 5 Mg Tab) 5 mg PO DAILY DAWIT Stop: 11/30/21 08:59 Last Admin: 11/19/21 09:21 Dose: 5 mg Documented by: Famotidine (Famotidine 20 Mg Tab) 20 mg PO BID DAWIT Stop: 11/30/21 08:59 Last Admin: 11/19/21 09:19 Dose: 20 mg Documented by: Folic Acid (Folic Acid 1 Mg Tab) 1 mg PO DAILY DAWIT Stop: 11/30/21 08:59 Last Admin: 11/19/21 09:21 Dose: 1 mg Documented by: Gabapentin (Gabapentin 100 Mg Cap) 100 mg PO BID DAWIT Stop: 12/07/21 20:59 Last Admin: 11/19/21 09:21 Dose: 100 mg Documented by: Lactobacillus Acidophilus (Advanced Probiotic 1250 Mg Capsule) 2 cap PO DAILY DAWIT Stop: 12/09/21 08:59 Last Admin: 11/19/21 09:22 Dose: 2 cap Documented by: Latanoprost (Latanoprost 0.005% Op Soln 2.5 Ml Btl) 1 drops OP PM DAWIT Stop: 11/30/21 20:59 Last Admin: 11/18/21 19:25 Dose: 1 drops Documented by: Levothyroxine Sodium (Levothyroxine Sodium 112 Mcg Tablet) 112 mcg PO DAILYBB DAWIT Stop: 11/30/21 08:59 Last Admin: 11/19/21 05:37 Dose: 112 mcg Documented by: Lidocaine (Lidocaine 5% 1 Patch) 1 patch TD QAM DAWIT Stop: 12/07/21 16:44 Last Admin: 11/19/21 09:20 Dose: 1 patch Documented by: Magnesium Hydroxide (Magnesium Hydroxide Susp 30 Ml Udc) 30 ml PO Q6H PRN PRN Reason: Constipation Stop: 12/03/21 14:53 Magnesium Oxide (Magnesium Oxide 400 Mg Tab) 400 mg PO QDD [facility] Stop: 11/30/21 16:29 Last Admin: 11/19/21 16:03 Dose: 400 mg Documented by: Metoprolol Tartrate (Metoprolol Tartrate 25 Mg Tab) 25 mg PO BID [facility] Stop: 12/04/21 20:59 Last Admin: 11/19/21 09:22 Dose: 25 mg Documented by: Miscellaneous (Remove Lidoderm Patch) 1 ea N/A DAILY@2100 [facility] Stop: 12/07/21 22:59 Last Admin: 11/18/21 19:25 Dose: 1 ea Documented by: Multivitamins (Multivitamin Tab) 1 tab PO QAM [facility] Stop: 12/04/21 08:59 Last Admin: 11/19/21 09:23 Dose: 1 tab Documented by: Naloxone HCl (Naloxone Hcl 0.4 Mg/1 Ml Vial/Carp) 0.1 mg IV Q5M PRN PRN Reason: Oversedation/Resp Depression Stop: 12/03/21 14:53 Ondansetron HCl (Ondansetron Inj 2 Mg/Ml 2 Ml Vial) 4 mg IV Q6H PRN PRN Reason: Nausea Stop: 11/30/21 05:31 Pantoprazole Sodium (Pantoprazole 40 Mg Tab) 40 mg PO DAILYBB [facility] Stop: 12/01/21 06:29 Last Admin: 11/19/21 05:37 Dose: 40 mg Documented by: Polyethylene Glycol (Polyethylene (Miralax) 17 Gm Pack) 17 gm PO DAILY PRN PRN Reason: Constipation Stop: 11/30/21 05:31 Raspberry (Raspberry Syrup 5 Ml Udp) 5 ml PO DAILY [facility] Stop: 11/30/21 08:59 Last Admin: 11/19/21 09:19 Dose: 5 ml Documented by: Saccharomyces Boulardii (Saccharomyces Boulardii 250 Mg Cap) 250 mg PO DAILY [facility] Stop: 12/05/21 08:59 Last Admin: 11/19/21 09:23 Dose: 250 mg Documented by: Sertraline HCl (Sertraline Hcl 100 Mg Tablet) 100 mg PO QAM DAWIT Stop: 11/30/21 08:59 Last Admin: 11/19/21 09:23 Dose: 100 mg Documented by: Tramadol HCl (Tramadol Hcl 50 Mg Tablet) 50 mg PO Q4H PRN PRN Reason: Pain & Pre PT Stop: 12/03/21 14:53 Last Admin: 11/18/21 23:12 Dose: 50 mg Documented by: Umeclidinium/Vilanterol (Umeclidinium/Vilanterol 62.5/25mcg 7 Puffs/Inhaler) 1 puffs INH DAILY DAWIT Stop: 11/30/21 08:59 Last Admin: 11/19/21 09:23 Dose: 1 puffs Documented by: Vancomycin HCl (Vancomycin Hcl 125 Mg/2.5ml Soln) 125 mg PO DAILY DAWIT Stop: 11/30/21 08:59 Last Admin: 11/19/21 09:19 Dose: 125 mg Documented by: Vitamin D (Cholecalciferol 1,000 Units 25 Mcg Tab) 2,000 units PO QAM DAWIT Stop: 11/30/21 08:59 Last Admin: 11/19/21 09:21 Dose: 2,000 units Documented by: (1) Hip fracture, left Encounter type: initial encounter Fracture type: closed Qualified Code(s): S72.002A - Fracture of unspecified part of neck of left femur, initial encounter for closed fracture (2) COPD (chronic obstructive pulmonary disease) COPD type: unspecified COPD Qualified Code(s): J44.9 - Chronic obstructive pulmonary disease, unspecified (3) Bronchiectasis Bronchiectasis type: uncomplicated Qualified Code(s): J47.9 - Bronchiectasis, uncomplicated (4) Hypothyroid Hypothyroidism type: unspecified Qualified Code(s): E03.9 - Hypothyroidism, unspecified (5) Dementia Dementia type: Alzheimer's disease Alzheimer's disease onset: unspecified onset Dementia behavioral disturbance: without behavioral disturbance Qualified Code(s): G30.9 - Alzheimer's disease, unspecified; F02.80 - Dementia in other diseases classified elsewhere without behavioral disturbance (6) Depression Depression Type: major depressive disorder Major depression recurrence: unspecified whether recurrent Active/Remission status: remission status unspecified Qualified Code(s): F32.9 - Major depressive disorder, single episode, unspecified
[2021-11-19] MEDS: clonazePAM 0.5 MG TAB PO SCH (19:56)
[2021-11-19] MEDS: ATORVASTATIN 20 MG TAB PO SCH (19:56)
[2021-11-19] MEDS: LATANOPROST 0.005% OP SOLN 2.5 ML BTL OP SCH (19:57)
[2021-11-20] MEDS: PANTOprazole 40 MG TAB PO SCH (04:53)
[2021-11-20] MEDS: LEVOTHYROXINE SODIUM 112 MCG TABLET PO SCH (04:54)
[2021-11-20] MEDS: traMADol HCL 50 MG TABLET PO PRN (04:54)
[2021-11-20] MEDS: ACETAMINOPHEN 325 MG TAB PO SCH ×3 (04:54→22:21)
[2021-11-20 07:24] LABS: Hematocrit (blood only) 26.7 % (37-47); Hemoglobin 8.1 g/dL (12.0-16.0); Mean Corpuscular Hemoglobin 27.6 pg (25-34); Mean Corpuscular Hgb Conc 30.3 g/dL (32-36); Mean Corpuscular Volume 90.8 fL (80-100); Mean Platelet Volume 9.5 fL (7.4-10.4); Platelet Count 625 K/uL (130-400); RDW Coefficient of Variation 13.6 % (11.5-14.5); RDW Standard Deviation 45.4 fL (36.4-46.3); Red Blood Count 2.94 M/uL (4.2-5.4); White Blood Count 8.88 K/uL (4.8-10.8)
[2021-11-20 07:45] LABS: Ferritin 943.9 ng/ml (8-388)
[2021-11-20 07:48] LABS: BUN Creatinine Ratio 52.7 (10-20); Creatinine Clr Calc Pharmacy 39.3 ml/min; Est GFR (African American) 69.5 ml/min; Potassium 4.7 mmol/L (3.5-5.1)
[2021-11-20 07:49] LABS: Basophils # (auto) 0.04 K/uL (0-0.2); Basophils % (auto) 0.5 %; Eosinophils # (auto) 0.46 K/uL (0-0.5); Eosinophils % (auto) 5.2 %; Immature Granulocytes # (auto) 0.02 K/uL (0.00-0.02); Immature Granulocytes % (auto) 0.2 %; Lymphocytes # (auto) 1.38 K/uL (1.2-3.4); Lymphocytes % (auto) 15.5 %; Monocytes # (auto) 0.93 K/uL (0.11-0.59); Monocytes % (auto) 10.5 %; Neutrophils # (auto) 6.05 K/uL (1.4-6.5); Neutrophils % (auto) 68.1 %
[2021-11-20] MEDS: UMECLIDINIUM/VILANTEROL 62.5/25MCG 7 PUFFS/INHALER INH SCH (09:21)
[2021-11-20] MEDS: VANCOMYCIN HCL 125 MG/2.5ML SOLN PO SCH (09:21)
[2021-11-20] MEDS: AZELASTINE HCL 0.1% NASAL 200 SPRAYS/27,400 MCG BTL SCH ×2 (09:21→18:29)
[2021-11-20] MEDS: RASPBERRY SYRUP 5 ML UDP PO SCH (09:21)
[2021-11-20] MEDS: ASPIRIN 81 MG ECTAB PO SCH ×2 (09:23→20:01)
[2021-11-20] MEDS: FAMOTIDINE 20 MG TAB PO SCH ×2 (09:23→20:01)
[2021-11-20] MEDS: DONEPEZIL HCL 5 MG TAB PO SCH (09:23)
[2021-11-20] MEDS: CHOLECALCIFEROL 1,000 UNITS 25 MCG TAB PO SCH (09:23)
[2021-11-20] MEDS: GABAPENTIN 100 MG CAP PO SCH ×2 (09:24→20:01)
[2021-11-20] MEDS: MULTIVITAMIN TAB PO SCH (09:24)
[2021-11-20] MEDS: DOCUSATE SODIUM 100 MG CAP PO SCH ×2 (09:24→20:02)
[2021-11-20] MEDS: ADVANCED PROBIOTIC 1250 MG CAPSULE PO SCH (09:24)
[2021-11-20] MEDS: METOPROLOL TARTRATE 25 MG TAB PO SCH ×2 (09:24→20:01)
[2021-11-20] MEDS: FOLIC ACID 1 MG TAB PO SCH (09:24)
[2021-11-20] MEDS: SERTRALINE HCL 100 MG TABLET PO SCH (09:25)
[2021-11-20] MEDS: LIDOCAINE 5% 1 PATCH TD SCH (09:25)
[2021-11-20] MEDS: SACCHAROMYCES BOULARDII 250 MG CAP PO SCH (09:25)
--- NOTE | 2021-11-20 14:11 | Hospitalist Progress Note ---
Date of Service November 20, 2021 Assessment & Plan (1) Non-ST elevation (NSTEMI) myocardial infarction: Plan: Completed treatment with heparin drip for 48 hours. TTE with moderate apical lateral wall motion abnormalities Cont ASA, lopresor, lipitor. No DAPT per cardio to decrease bleeding risk Followup as outpatient (2) Hip fracture, left: Plan: s/p left hemiarthroplasty 11/03 ASA bid for DVT prophylaxis per ortho. On PPI for GI prophylaxis -Pain control: Scheduled tylenol 650mg TID, started lidoderm patch and gabapentin 100mg BID 11/07, PRN tramadol for breakthrough pain 11/20-changed APAP to PRN (3) UTI (urinary tract infection): Plan: Pseudomonas UTI -s/p ceftriaxone. Finished 5 day course of Cefepime on 11/10/21 (4) Iron deficiency anemia: Plan: Blood loss anemia- Hb has dropped from 13 on admission to 8.2 recently- but relatively stable over the past 10 days. Etiologies include but are note limited to iron deficiency, post operative state or acute blood loss anemia. No bleeding noted. Start iron supplementation. (5) Reactive thrombocytosis: Plan: as above. (6) Bronchiectasis: (7) COPD (chronic obstructive pulmonary disease): Plan: History of chronic respiratory failure secondary to COPD and bronchiectasis on home oxygen No acute exacerbation of her symptoms (8) Depression: Plan: chronic, stable. Cont current treatment. (9) Dementia: Plan: Dementia which has been progressing as per the outpatient neurological note Delirium recently with UTI and acute illness, delirium now resolved (10) Hypothyroid: Plan: chronic, stable. Cont supplementation per home regimen. Plan: DVT prophylaxis- ASA bid Disposition- Discharge to [facility] was cancelled as no transportation was available. Daughter says she has to sign a paper from her psychiatrist and send to [facility] on Sunday prior to transfer. Carmela Spencer DO [facility] Hospitalist Admission and Anticipated Discharge Date Admission Date: October 31, 2021 Subjective 81-year-old female, resident of assisted living in [facility], presented for left hip fracture after mechanical fall. She underwent a left hip hemiarthroplasty for displaced femoral neck fracture on 11/03/[address]Scott Siddiqui and continues to have an uneventful recovery. She is awaiting placement Denies any pain today Forgot which side her operation was on Limited ability for movement Tolerating p.o. Denies chest pain shortness of breath or other issues today. Review of Systems Review of Systems: All systems are negative except as indicated above Physical Exam Physical Exam: CONSTITUTIONAL: elderly, vitals as above, generally well- appearing, NAD EYES: normal conjunctivae, no scleral icterus, ENT: external ear and nose normal, MMM NECK: trachea midline, RESPIRATORY: clear to auscultation bilaterally, no crackles, rales or wheezes, normal respiratory effort CARDIOVASCULAR: regular rate and rhythm, S1 and 2 heard without murmurs, gallops or rubs, no JVD, no peripheral edema CHEST: inspection of chest was normal GASTROINTESTINAL: soft, nontender, ND, no guarding MUSCULOSKELETAL: moves all extremities equally, head is normocephalic and atra umatic, neck supple, normal palpation of chest wall without tenderness SKIN: warm and dry, was unable to eval surgical site as patient was sitting in chair and unable to maneuver around for me to evaluate this. NEUROLOGIC: CN 2-12 grossly intact, no sensory deficit, normal cognition, normal speech, no tremor PSYCHIATRIC: alert cooperative and answering questions appropriately. Results & Data Results & Data ([facility]) Vital Signs (Past 12 Hours) Vital Signs Temp Pulse Resp BP Pulse Ox 11/20/21 07:40 36.8 C 78 16 146/64 H 100 Laboratory Results Short CBC 11/20/21 Range/Units 05:51 WBC 8.88 (4.8-10.8) K/uL Hgb 8.1 L (12.0-16.0) g/dL Hct 26.7 L (37-47) % Plt Count 625 H (130-400) K/uL BMP 11/20/21 05:51 Sodium 138 Potassium 4.7 Chloride 102 Carbon Dioxide 33 H BUN 48 H Creatinine 0.91 Glucose 84 Calcium 9.0 Medications Administered Current Inpatient Medications Acetaminophen (Acetaminophen 325 Mg Tab) 650 mg PO Q8 DAWIT Stop: 12/02/21 13:59 Last Admin: 11/20/21 12:59 Dose: 650 mg Documented by: Albuterol (Albuterol 0.083% Nebu Soln 3 Ml Vial) 2.5 mg INH QID PRN; Protocol PRN Reason: Shortness Of Breath Or Wheezing Stop: 11/30/21 08:05 Last Admin: 11/06/21 00:23 Dose: 2.5 mg Documented by: Aspirin (Aspirin 81 Mg Ectab) 81 mg PO BID DAWIT Stop: 12/18/21 20:59 Last Admin: 11/20/21 09:23 Dose: 81 mg Documented by: Atorvastatin Calcium (Atorvastatin 20 Mg Tab) 20 mg PO HS [facility] Stop: 12/05/21 20:59 Last Admin: 11/19/21 19:56 Dose: 20 mg Documented by: Azelastine HCl (Azelastine Hcl 0.1% Nasal 200 Sprays/27,400 Mcg Btl) 2 sprays NA BIDM [facility] Stop: 11/30/21 16:59 Last Admin: 11/20/21 09:21 Dose: 2 sprays Documented by: Bisacodyl (Bisacodyl 10 Mg Supp) 10 mg MS DAILY PRN PRN Reason: Constipation Stop: 12/03/21 14:53 Calcium Carbonate (Calcium Carbonate 500 Mg Chewable Tab) 500 mg PO QDD DAWIT Stop: 11/30/21 16:29 Last Admin: 11/19/21 16:03 Dose: 500 mg Documented by: Clonazepam (Clonazepam 0.5 Mg Tab) 0.5 mg PO [facility] Stop: 11/30/21 20:59 Last Admin: 11/19/21 19:56 Dose: 0.5 mg Documented by: Docusate Sodium (Docusate Sodium 100 Mg Cap) 100 mg PO BID [facility] Stop: 12/03/21 20:59 Last Admin: 11/20/21 09:24 Dose: Not Given Documented by: Donepezil HCl (Donepezil Hcl 5 Mg Tab) 5 mg PO DAILY [facility] Stop: 11/30/21 08:59 Last Admin: 11/20/21 09:23 Dose: 5 mg Documented by: Famotidine (Famotidine 20 Mg Tab) 20 mg PO BID DAWIT Stop: 11/30/21 08:59 Last Admin: 11/20/21 09:23 Dose: 20 mg Documented by: Folic Acid (Folic Acid 1 Mg Tab) 1 mg PO DAILY [facility] Stop: 11/30/21 08:59 Last Admin: 11/20/21 09:24 Dose: 1 mg Documented by: Gabapentin (Gabapentin 100 Mg Cap) 100 mg PO BID [facility] Stop: 12/07/21 20:59 Last Admin: 11/20/21 09:24 Dose: 100 mg Documented by: Lactobacillus Acidophilus (Advanced Probiotic 1250 Mg Capsule) 2 cap PO DAILY [facility] Stop: 12/09/21 08:59 Last Admin: 11/20/21 09:24 Dose: 2 cap Documented by: Latanoprost (Latanoprost 0.005% Op Soln 2.5 Ml Btl) 1 drops OP PM [facility] Stop: 11/30/21 20:59 Last Admin: 11/19/21 19:57 Dose: 1 drops Documented by: Levothyroxine Sodium (Levothyroxine Sodium 112 Mcg Tablet) 112 mcg PO DAILYBB [facility] Stop: 11/30/21 08:59 Last Admin: 11/20/21 04:54 Dose: 112 mcg Documented by: Lidocaine (Lidocaine 5% 1 Patch) [facility] Stop: 12/07/21 16:44 Last Admin: 11/20/21 09:25 Dose: 1 patch Documented by: Magnesium Hydroxide (Magnesium Hydroxide Susp 30 Ml Udc) 30 ml PO Q6H PRN PRN Reason: Constipation Stop: 12/03/21 14:53 Magnesium Oxide (Magnesium Oxide 400 Mg Tab) 400 mg PO QDD [facility] Stop: 11/30/21 16:29 Last Admin: 11/19/21 16:03 Dose: 400 mg Documented by: Metoprolol Tartrate (Metoprolol Tartrate 25 Mg Tab) 25 mg PO BID [facility] Stop: 12/04/21 20:59 Last Admin: 11/20/21 09:24 Dose: 25 mg Documented by: Miscellaneous (Remove Lidoderm Patch) 1 ea N/A DAILY@2100 [facility] Stop: 12/07/21 22:59 Last Admin: 11/19/21 19:57 Dose: 1 ea Documented by: Multivitamins (Multivitamin Tab) 1 tab [facility] Stop: 12/04/21 08:59 Last Admin: 11/20/21 09:24 Dose: 1 tab Documented by: Naloxone HCl (Naloxone Hcl 0.4 Mg/1 Ml Vial/Carp) 0.1 mg IV Q5M PRN PRN Reason: Oversedation/Resp Depression Stop: 12/03/21 14:53 Ondansetron HCl (Ondansetron Inj 2 Mg/Ml 2 Ml Vial) 4 mg IV Q6H PRN PRN Reason: Nausea Stop: 11/30/21 05:31 Pantoprazole Sodium (Pantoprazole 40 Mg Tab) 40 mg PO DAILYBB [facility] Stop: 12/01/21 06:29 Last Admin: 11/20/21 04:53 Dose: 40 mg Documented by: Polyethylene Glycol (Polyethylene (Miralax) 17 Gm Pack) 17 gm PO DAILY PRN PRN Reason: Constipation Stop: 11/30/21 05:31 Raspberry (Raspberry Syrup 5 Ml Udp) 5 ml PO DAILY DAWIT Stop: 11/30/21 08:59 Last Admin: 11/20/21 09:21 Dose: 5 ml Documented by: Saccharomyces Boulardii (Saccharomyces Boulardii 250 Mg Cap) 250 mg PO DAILY DAWIT Stop: 12/05/21 08:59 Last Admin: 11/20/21 09:25 Dose: 250 mg Documented by: Sertraline HCl (Sertraline Hcl 100 Mg Tablet) 100 mg PO QAM DAWIT Stop: 11/30/21 08:59 Last Admin: 11/20/21 09:25 Dose: 100 mg Documented by: Tramadol HCl (Tramadol Hcl 50 Mg Tablet) 50 mg PO Q4H PRN PRN Reason: Pain & Pre PT Stop: 12/03/21 14:53 Last Admin: 11/20/21 04:54 Dose: 50 mg Documented by: Umeclidinium/Vilanterol (Umeclidinium/Vilanterol 62.5/25mcg 7 Puffs/Inhaler) 1 puffs INH DAILY DAWIT Stop: 11/30/21 08:59 Last Admin: 11/20/21 09:21 Dose: 1 puffs Documented by: Vancomycin HCl (Vancomycin Hcl 125 Mg/2.5ml Soln) 125 mg PO DAILY DAWIT Stop: 11/30/21 08:59 Last Admin: 11/20/21 09:21 Dose: 125 mg Documented by: Vitamin D (Cholecalciferol 1,000 Units 25 Mcg Tab) 2,000 units PO QAM DAWIT Stop: 11/30/21 08:59 Last Admin: 11/20/21 09:23 Dose: 2,000 units Documented by: (1) Dementia Alzheimer's disease onset: unspecified onset Dementia behavioral disturbance: without behavioral disturbance Dementia type: Alzheimer's disease Qualified Code(s): G30.9 - Alzheimer's disease, unspecified; F02.80 - Dementia in other diseases classified elsewhere without behavioral disturbance (2) Depression Active/Remission status: remission status unspecified Depression Type: major depressive disorder Major depression recurrence: unspecified whether recurrent Qualified Code(s): F32.9 - Major depressive disorder, single episode, unspecified (3) Hypothyroid Hypothyroidism type: unspecified Qualified Code(s): E03.9 - Hypothyroidism, unspecified (4) COPD (chronic obstructive pulmonary disease) COPD type: unspecified COPD Qualified Code(s): J44.9 - Chronic obstructive pulmonary disease, unspecified (5) Bronchiectasis Bronchiectasis type: uncomplicated Qualified Code(s): J47.9 - Bronchiectasis, uncomplicated (6) Hip fracture, left Encounter type: initial encounter Fracture type: closed Qualified Code(s): S72.002A - Fracture of unspecified part of neck of left femur, initial encounter for closed fracture
[2021-11-20] MEDS: MAGNESIUM OXIDE 400 MG TAB PO SCH (18:29)
[2021-11-20] MEDS: CALCIUM CARBONATE 500 MG CHEWABLE TAB PO SCH (18:29)
[2021-11-20] MEDS: ATORVASTATIN 20 MG TAB PO SCH (20:01)
[2021-11-20] MEDS: clonazePAM 0.5 MG TAB PO SCH (20:01)
[2021-11-20] MEDS: LATANOPROST 0.005% OP SOLN 2.5 ML BTL OP SCH (20:02)
[2021-11-21] MEDS: ACETAMINOPHEN 325 MG TAB PO SCH (05:55)
[2021-11-21] MEDS: PANTOprazole 40 MG TAB PO SCH (05:57)
[2021-11-21] MEDS: LEVOTHYROXINE SODIUM 112 MCG TABLET PO SCH (05:57)
[2021-11-21] MEDS ORDERED: ACETAMINOPHEN 325 MG TAB PO PRN ×2 (08:35→09:03)
[2021-11-21] MEDS ORDERED: traMADol HCL 50 MG TABLET PO PRN (09:03)
[2021-11-21] MEDS: SERTRALINE HCL 100 MG TABLET PO SCH (09:20)
[2021-11-21] MEDS: GABAPENTIN 100 MG CAP PO SCH (09:20)
[2021-11-21] MEDS: ASPIRIN 81 MG ECTAB PO SCH (09:20)
[2021-11-21] MEDS: AZELASTINE HCL 0.1% NASAL 200 SPRAYS/27,400 MCG BTL SCH (09:20)
[2021-11-21] MEDS: METOPROLOL TARTRATE 25 MG TAB PO SCH (09:20)
[2021-11-21] MEDS: ADVANCED PROBIOTIC 1250 MG CAPSULE PO SCH (09:21)
[2021-11-21] MEDS: SACCHAROMYCES BOULARDII 250 MG CAP PO SCH (09:21)
[2021-11-21] MEDS: CHOLECALCIFEROL 1,000 UNITS 25 MCG TAB PO SCH (09:21)
[2021-11-21] MEDS: DONEPEZIL HCL 5 MG TAB PO SCH (09:21)
[2021-11-21] MEDS: DOCUSATE SODIUM 100 MG CAP PO SCH (09:21)
[2021-11-21] MEDS: FOLIC ACID 1 MG TAB PO SCH (09:21)
[2021-11-21] MEDS: RASPBERRY SYRUP 5 ML UDP PO SCH (09:21)
[2021-11-21] MEDS: MULTIVITAMIN TAB PO SCH (09:21)
[2021-11-21] MEDS: LIDOCAINE 5% 1 PATCH TD SCH (09:21)
[2021-11-21] MEDS: UMECLIDINIUM/VILANTEROL 62.5/25MCG 7 PUFFS/INHALER INH SCH (09:22)
[2021-11-21] MEDS: FAMOTIDINE 20 MG TAB PO SCH (09:22)
[2021-11-21] MEDS: VANCOMYCIN HCL 125 MG/2.5ML SOLN PO SCH (09:37)
--- NOTE | 2021-11-21 10:52 | Discharge Summary ---
Date of Service November 21, 2021 Principal Diagnosis Left hip fracture s/p left hemiarthroplasty, NSTEMI Discharge Exam CONSTITUTIONAL: elderly, vitals as above, generally well-appearing, NAD EYES: normal conjunctivae, no scleral icterus, ENT: external ear and nose normal, MMM NECK: trachea midline, RESPIRATORY: clear to auscultation bilaterally, no crackles, rales or wheezes, normal respiratory effort CARDIOVASCULAR: regular rate and rhythm, S1 and 2 heard without murmurs, gallops or rubs, no JVD, no peripheral edema CHEST: inspection of chest was normal GASTROINTESTINAL: soft, nontender, ND, no guarding MUSCULOSKELETAL: moves all extremities equally, head is normocephalic and atraumatic, neck supple, normal palpation of chest wall without tenderness SKIN: warm and dry, was unable to eval surgical site as patient was sitting in chair and unable to maneuver around for me to evaluate this. NEUROLOGIC: CN 2-12 grossly intact, no sensory deficit, normal cognition, normal speech, no tremor PSYCHIATRIC: alert cooperative and answering questions appropriately. Discharge Data Allergies Allergy/AdvReac Type Severity Reaction Status Date / Time dichloralphenazone AdvReac Severe angina and Unverified 10/10/20 07:55 [From Midrin] hypertension isometheptene [From Midrin] AdvReac Severe angina and Unverified 10/10/20 07:55 hypertension verapamil AdvReac Severe angina and Unverified 10/10/20 07:55 hypertension erythromycin base AdvReac Unknown Unknown Unverified 10/10/20 07:55 Consultations 10/31/21 03:25 ED Decision to Admit Stat 10/31/21 05:32 Consult Cardiology Routine 10/31/21 08:00 Consult Orthopedic Surgery Routine Procedures Performed Operation Date: 11/03/21 10:55 Actual Procedures p Left Bipolar Hemiarthroplasty(Left) - Philipp Siddiqui M.D. Ordered Studies 10/31/21 13:41 CT head/brain wo con Urgent Hospital Course (1) Non-ST elevation (NSTEMI) myocardial infarction: Completed treatment with heparin drip for 48 hours. TTE with moderate apical lateral wall motion abnormalities Cont ASA, lopresor, lipitor. No DAPT per cardio to decrease bleeding risk Followup as outpatient (2) Hip fracture, left: s/p left hemiarthroplasty 6/2 ASA bid for DVT prophylaxis per ortho. On PPI for GI prophylaxis -Pain control: Scheduled tylenol 650mg TID, started lidoderm patch and gabapentin 100mg BID 11/07, PRN tramadol for breakthrough pain 11/20-changed APAP to PRN (3) UTI (urinary tract infection): Pseudomonas UTI -. Finished 5 day course of antibiotic on 11/10/21 (4) Iron deficiency anemia: Blood loss anemia- Hb has dropped from 13 on admission to 8.2 recently- but relatively stable over the past 10 days. Etiologies include but are note limited to iron deficiency, post operative state or acute blood loss anemia. No bleeding noted. Start iron supplementation. Followup as outpatient for monitoring and further investigation as needed. (5) Reactive thrombocytosis: as above. (6) Bronchiectasis: (7) COPD (chronic obstructive pulmonary disease): History of chronic respiratory failure secondary to COPD and bronchiectasis on home oxygen No acute exacerbation of her symptoms (8) Depression: chronic, stable. Cont current treatment. (9) Dementia: Dementia which has been progressing as per the outpatient neurological note Delirium recently with UTI and acute illness, delirium now resolved (10) Hypothyroid: chronic, stable. Cont supplementation per home regimen. Total Time Total Time Spent Total Time Spent (In Minutes): 60 Discharge Plan Discharge Items Patient Disposition: Transfer Detention Fac Reason For Visit: FALL Discharge Diagnosis: Left hip fracture s/p left hemiarthroplasty, NSTEMI Condition on Discharge: Good Activity: Resume your previous activity Non-emergency contact: Primary Care Provider Call non-emergency contact if: you have any medication questions, your symptoms worsen, your pain is not controlled and you have a fever Follow-up/Referrals: GIOVANNA [Primary Care Provider] - Diet: Heart Healthy Addtl Attending Provider Instructions: See the instructions below Continue aspirin twice daily for 2 more weeks and then cut down to once a day Continue lopresor twice daily Continue lipitor You have been placed on iron supplements for iron deficiency, which should be followed up by your primary care provider (PCP). You can take tramadol every 4-6 hours as needed for pain. Stool softeners as needed. Follow up with orthopedics in a week- Please call the number below Please follow-up with PCP within 1 week of discharge. It was a pleasure taking care of you! Please call if you have any questions or problems. You can reach a [facility] hospitalist on duty at [facility] 24 hours a day by calling [phone]. Take care of yourself. DO [facility] Hospital[facility] Addtl Elementary Instructional Coach Provider Instructions: ACTIVITY RECOMMENDATIONS: SELF CARE INSTRUCTIONS AFTER TOTAL HIP REPLACEMENT Until the incision and soft tissues around your hip have healed, there is a possibility that the hip prosthesis could dislocate. A. Observe the following precautions to prevent dislocation: 1. Don't bend your hip greater than 90 degrees. 2. Avoid crossing your legs or ankles while standing or lying. 3. Sit with your feet placed 6 inches apart. 4. When sitting, keep your knees below your hips. Sit on a firm surface, avoid deep, soft chairs and couches. Use an elevated toilet seat in the bathroom. 5. Don't bend over at the waist. Use a long handled shoehorn and a sock aid to help you put on your shoes and socks. A senior writer can help you fish bait picker objects that are too high or too low to reach. 6. Keep car riding to a minimum for at least one month after surgery. B. Your balance may be shaky for a while. Use crutches or a walker until directed by your doctor. C. Use hand rails when walking on stairs. D. Wear low heeled shoes with non-slip soles. E. Be sure that your floors are free of things that could trip you - throw rugs, electrical cords, small objects. Avoid wet and waxed floors, especially with crutches and canes. F. Try to walk several times a day with rest periods between. G. Continue with all the exercises taught to you in the hospital. Again, make walking a part of your daily routine. SPECIAL CARE INSTRUCTIONS: VERY IMPORTANT TO READ AND REVIEW A. You may still be at risk for phlebitis and blood clots. 1. Wear surgical stockings (DEIDRA hose) for 2 weeks after surgery to improve circulation and reduce swelling. 2. Take Aspirin 81mg twice daily for 4 weeks or as directed by your doctor. This is your blood thinner. 3. High risk patients may be prescribed a stronger blood thinner if necessary. 4. If you are on Coumadin normally, your family doctor/forge press operator should monitor your blood work. Expect a phone call the day of or the day after bloodwork is drawn to adjust your dosage. B. You must take antibiotics before having dental work, bladder, bowel and oth er surgery. Your doctor will provide you with a permanent card to carry describing precautions. C. Call [facility] if you have a fever, redness or swelling around the incision, cloudy drainage from incision, or sudden increase in pain in your hip, not relieved by your regular pain medication. D. Please call the office at if you have any concerns or questions about your operation or recovery. * YOU MAY SHOWER, NO TUB BATHS UNTIL CLEARED BY YOUR DOCTOR. * WEAR DEIDRA HOSE 20 HOURS PER DAY FOR 2 WEEKS. * YOU SHOULD USE A WALKER OR CRUTCHES FOR 2-4 WEEKS. THIS WILL HELP PREVENT STRAIN ON YOUR HIP MUSCLE AND ALLOW IT TO HEAL PROPERLY. YOU MAY WEAN TO A CANE TOLERATED. * MOST PATIENTS WILL HAVE HOME NURSING FOR THERAPY. IF YOU DECIDE TO DO OUTPATIENT PHYSICAL THERAPY, PLEASE SCHEDULE THIS 3 TIMES PER WEEK. * This is a large adhesive bandage that contains silver ions. This helps your incision heal by fighting off bacteria and protecting it from the outside environment. You are permitted to shower with this dressing. This will remain on your incision for 7 days and then should be removed. Some visible blood or drainage through the dressing window is normal. If there is significant drainage or leaking noted before the 7 days notify your doctor's office immediately. Once removed, keep incision clean and dry. If there is any drainage or redness noted, please call your surgeon. IF INCISION IS LEAKING THROUGH DRESSING, PLEASE CALL THE OFFICE . FOLLOW UP VISIT: If appointment is not already scheduled: Please call [facility] to make a follow-up appointment for 2 weeks after your surgery at . Pending Studies at Discharge: No Stand-Alone Forms: My [facility] Skilled Items Patient informed of condition?: Yes DNR: Yes Discharge Level of Care: Skilled Communicable Disease: No Discharge Prognosis: Stable Lines: None Urinary Catheter: No Medications and DC Order Prescriptions: New atorvastatin 20 mg Tablet 20 mg PO HS Qty: 30 RF: 0 metoprolol tartrate 25 mg Tablet 25 mg PO BID Qty: 60 RF: 0 gabapentin 100 mg Capsule 100 mg PO BID Qty: 60 RF: 0 tramadol 50 mg Tablet 50 mg PO Q6 PRN (Reason: pain) Qty: 10 RF: 0 lidocaine 5 % Adhesive Patch,Medicated 1 patch transdermal QAM Qty: 10 RF: 0 ferrous sulfate 325 mg (65 mg iron) Tablet,Delayed Release (Dr/Ec) 325 mg PO BIDM Qty: 60 RF: 0 Continued azelastine 137 mcg (0.1 %) Aerosol,[place] 2 spray INTRANASAL BIDM RF: 0 levothyroxine 112 mcg Tablet 112 mcg PO QAM RF: 0 omeprazole magnesium [Prilosec OTC] 20 mg Tablet,Delayed Release (Dr/Ec) 20 mg PO DAILYBB RF: 0 cholecalciferol (vitamin D3) 50 mcg (2,000 unit) Tablet 50 mcg PO QAM RF: 0 magnesium oxide 400 mg magnesium Tablet 400 mg PO QDD RF: 0 sertraline 100 mg tablet 100 mg PO QAM RF: 0 calcium carbonate [Calcium Antacid] 200 mg calcium (500 mg) Tablet,Chewable 200 mg PO QDD RF: 0 vancomycin 125 mg capsule 125 mg PO DAILY 30 Days Qty: 30 RF: 1 latanoprost [Xalatan] 0.005 % Drops 1 drp OPHTHALMIC (EYE) PM RF: 0 donepezil 5 mg Tablet 5 mg PO DAILY RF: 0 albuterol sulfate 2.5 mg /3 mL (0.083 %) Solution For Nebulization 2.5 mg INHALATION QID PRN (Reason: Shortness Of Breath Or Wheezing) RF: 0 folic acid 1 mg Tablet 1 mg PO DAILY RF: 0 Anoro Ellipta 62.5-25 mcg/actuation Blister With Device 1 inh INHALATION DAILY RF: 0 Pepcid 20 mg 20 mg PO BID RF: 0 clonazepam 0.5 mg Tablet 0.5 mg PO HS Qty: 10 RF: 0 Changed aspirin 81 mg Tablet,Delayed Release (Dr/Ec) 81 mg PO UD Qty: 60 RF: 0 Discharge Orders: Discharge Order (Routine); Ordered 11/21/21 Ordered By: Carmela Fuller/Other Patient Handouts: DVT Post Op Prevention Admission Data Admit Date/Time: 10/31/21 04:36 Attending Provider: Carmela Spencer Admit Provider: Benson Anderson Primary Care Provider: [facility], Other Providers: Williams Jeffrey ; Antione Langley Other Interventions: Discharge Summary Assessment (RN) Last Done: 11/21/21 09:56
[2021-11-21] MEDS ORDERED: FERROUS SULFATE 325 MG TAB PO SCH (17:00)
== END 2021-11-21 11:57 | DRG 521 ==
LOC: ED 02:17 → SUATTDRO 04:36 → EDINP 04:36 → 2W 18:26 → 3E 11-13 11:05
DX: I21.4 Non-ST elevation (NSTEMI) myocardial infarction; E03.9 Hypothyroidism, unspecified; B96.5 Pseudomonas (aeruginosa) (mallei) (pseudomallei) as the cause of diseases classified elsewhere; J44.9 Chronic obstructive pulmonary disease, unspecified; F41.1 Generalized anxiety disorder; Z99.81 Dependence on supplemental oxygen; N39.0 Urinary tract infection, site not specified; D72.829 Elevated white blood cell count, unspecified; F32.9 Major depressive disorder, single episode, unspecified; Z79.82 Long term (current) use of aspirin; R64 Cachexia; W19.XXXA Unspecified fall, initial encounter; Z66 Do not resuscitate; J96.11 Chronic respiratory failure with hypoxia; F03.90 Unspecified dementia, unspecified severity, without behavioral disturbance, psychotic disturbance, mood disturbance, and anxiety; S72.142A Displaced intertrochanteric fracture of left femur, initial encounter for closed fracture; Z88.8 Allergy status to other drugs, medicaments and biological substances; Z87.891 Personal history of nicotine dependence